=== PATIENT | female | born 1955 | race Caucasian/White ===

== ENCOUNTER → 2019-07-27 | Outpatient (CLI) | payer MEDICARE, BC, OTHER | END | disposition home or self-care (01) | LOC: LABWHC1 12:08 | PROVIDERS: ATTEND Surgery | DX: U07.1 COVID-19 (principal) | CPT/HCPCS: 87635 ==

== ENCOUNTER 2019-07-29 11:58 | Day surgery (SDC) | payer MEDICARE, BC, OTHER ==
[2019-07-28 14:42] VITALS: BMI 62.1
[~2019-07-29 11:58] MED LIST: DEXAMETHASONE SOD PHOSPHATE 10 MG/ML 1 ML VIAL IV ONE; HYDROmorphone 0.5 MG/0.5 ML SYRINGE IVP PRN; LACTATED RINGERS 1,000 ML IV SCH; LIDOCAINE 1% (10MG/ML) FOR IV START INTRADERMA PRN; ONDANSETRON 4 MG/2 ML VIAL IVP ONE; ONDANSETRON 4 MG/2 ML VIAL IVP PRN; ceFAZolin 3 GM in SODIUM CHLORIDE 0.9% 100 ML IVPB ONE
[2019-07-29] MEDS ORDERED: LACTATED RINGERS 1,000 ML IV ONE (12:26)
[2019-07-29 12:35] LABS: Glucose,Whole Blood 261 mg/dL (75-99)
[2019-07-29] MEDS ORDERED: INSULIN ASPART (NovoLOG) 100 UNIT/ML VIAL SQ ONE ×2 (12:50→17:17)
[2019-07-29 12:58] LABS: Basophils % (A) 1 %; Eosinophils # (A) 0.3 k/uL (0-0.7); Eosinophils % (A) 5 %; HCT 33.2 % (34.0-46.0); HGB 10.9 gm/dL (11.4-16.0); Lymphocytes # (A) 1.8 k/uL (1.0-4.8); Lymphocytes % (A) 32 %; MCH 35.5 pg (25.0-35.0); MCHC 32.9 g/dL (31.0-37.0); MCV 107.8 fL (80.0-100.0); Macrocytosis Moderate; Monocytes # (A) 0.3 k/uL (0-1.0); Monocytes % (A) 5 %; Neutrophils # (A) 3.1 k/uL (1.3-7.7); Neutrophils % (A) 54 %; Platelet Count 161 k/uL (150-450); RBC 3.08 m/uL (3.80-5.40); RDW 13.6 % (11.5-15.5); WBC 5.7 k/uL (3.8-10.6)
[2019-07-29 13:07] LABS: Calcium 9.1 mg/dL (8.4-10.2); Potassium 5.5 mmol/L (3.5-5.1); Total Bilirubin 0.5 mg/dL (0.2-1.3); Total Protein 7.6 g/dL (6.3-8.2)
[2019-07-29] MEDS ORDERED: HYDROmorphone (PF) 1 MG/ML ONE (13:38)
[2019-07-29] MEDS ORDERED: ROCURONIUM BROMIDE 10 MG/ML 5 ML VIAL IV ONE (13:38)
[2019-07-29] MEDS ORDERED: MIDAZOLAM 2 MG/2 ML VIAL ONE (13:38)
[2019-07-29] MEDS ORDERED: LIDOCAINE 1% INJ 10MG/ML (20 ML MDV) ONE (13:38)
[2019-07-29] MEDS ORDERED: fentaNYL (PF) 50 MCG/ML 2 ML AMP ONE (13:38)
[2019-07-29] MEDS ORDERED: HEPARIN SODIUM,PORCINE 5,000 UNIT/ML 1 ML VIAL ONE (13:38)
[2019-07-29] MEDS ORDERED: SUCCINYLCHOLINE CHLORIDE 100 MG/5 ML SYR IV ONE (13:38)
[2019-07-29] MEDS ORDERED: PHENYLEPHRINE-0.9% NACL SYG 1 MG/10 ML SYRINGE ONE (13:38)
[2019-07-29] MEDS ORDERED: ePHEDrine SULFATE/0.9% NACL/PF 50 MG/5 ML SYRINGE IV ONE (13:38)
[2019-07-29] MEDS ORDERED: PROPOFOL 10 MG/ML 20 ML VIAL IV ONE (13:38)
[2019-07-29] MEDS ORDERED: SODIUM CHLORIDE 0.9% 1,000 ML IV ONE (13:42)
[2019-07-29] MEDS ORDERED: SODIUM CHLORIDE 0.9% 500 ML 500 ML with HEPARIN SODIUM,PORCINE 2,000 UNIT IV ONE ×2 (14:32)
[2019-07-29] MEDS ORDERED: ceFAZolin 2,000 MG in SODIUM CHLORIDE 0.9% 500 ML IRRIGATION ONE (14:33)
[2019-07-29] MEDS ORDERED: THROMBIN (BOVINE) 5,000 UNIT VIAL TOPICAL ONE (16:02)
[2019-07-29] MEDS ORDERED: GELATIN SPONGE,ABSORB (LARGE) 1 EACH SPONGE TOPICAL ONE (16:03)
--- NOTE | 2019-07-29 16:47 | P.OP ---
Date of Procedure: 07/29/19 Description of Procedure: Preoperative diagnosis: [End-stage renal disease, morbid obesity] Postoperative diagnosis: Same Procedure: [Left upper extremity brachiocephalic arteriovenous fistula creation] Surgeon: Tracy Chen D.O. EBL: [35 mL] IV fluids: [See records] Urine output: [Not measured] Drains: [None] Complications: [None immediately apparent] Condition: [Extubated, stable to PACU] Operative indication and findings: [Patient is a 64-year-old female with end- stage renal disease who previously had a left upper extremity loop forearm graft that has subsequently thrombosed. She is currently getting dialysis via a right sided tunneled dialysis catheter. Ultrasound of her left upper extremity did reveal a 3.4 cm cephalic vein therefore discussion was had regarding attempts to create a brachiocephalic fistula. Given her extensively large arms, it was discussed this might need to be a two-stage procedure if it matures. This was discussed with herself and her who seemingly understand and are willing to proceed.] Procedure in detail: [The patient was taken to the operative suite and placed in supine position. The left upper extremity was prepped and draped in usual sterile fashion. After general anesthesia was adequate, the ultrasound was utilized. The radial artery was identified, the cephalic vein was identified along with its tributary branches. A transverse incision was made just proximal to the antecubital fossa. Using a cautery was carried down to the level of the brachial artery. Brachial artery was encircled with Vesseloops proximal and distally. Attention was then turned towards finding the vein. The dissection was tedious through the significant layers of fat. The of some was used multiple times to locate the cephalic vein. It was encircled and dissected free the distally. It was very tortuous in nature. Multiple branches were ligated. There was an area of injury to the vein itself which was suture repaired with 7-0 Prolene. After adequate vein was dissected free, it was transected any distal portion was suture ligated with 6-0 silk. The vein was then dilated and flushed with heparinized saline. The patient was heparinized. Flow was occluded through the artery and an arteriotomy was performed. An anastomosis created with 7-0 Prolene between the artery and vein. Prior to completion of the anastomosis the artery was flushed. There was good flow through the fistula although somewhat pulsatile. There was a multiphasic signals proximally distally and through the fistula itself. Hemostasis was controlled with sutures of 7-0 Prolene as well as thrombin and Gelfoam. Once hemostasis was adequate, the wound was copiously irrigated. The deep dermal tissues were reapproximated with 3-0 Vicryl. The skin was reapproximated with running 4-0 Monocryl. A dressing was placed with the patient allowed awaken from surgery and transferred to PACU in stable condition having tolerated the procedure well.] Plan - Discharge Summary Discharge Rx Participant: No New Discharge Prescriptions: No Action Simvastatin [Zocor] 20 mg PO HS Insulin Glulisine [Apidra] 20 unit SQ AC-TID Insulin Glargine [Lantus] 39 unit SQ HS Folic Acid-Vit B Complex-Vit C [Nephrocaps] 1 mg PO TUTHSA Doxazosin [Cardura] 1 mg PO HS Lisinopril [Zestril] 5 mg PO HS Calcium Acetate [Phoslo] 667 mg PO TID Aspirin 325 mg PO HS Omeprazole 20 mg PO HS Levothyroxine Sodium [Synthroid] 175 mcg PO DAILY Carvedilol 25 mg PO HS Discharge Medication List Aspirin 325 mg PO HS 07/28/19 [History] Calcium Acetate [Phoslo] 667 mg PO TID 07/28/19 [History] Carvedilol 25 mg PO HS 07/28/19 [History] Doxazosin [Cardura] 1 mg PO HS 07/28/19 [History] Folic Acid-Vit B Complex-Vit C [Nephrocaps] 1 mg PO TUTHSA 07/28/19 [History] Insulin Glargine [Lantus] 39 unit SQ HS 07/28/19 [History] Insulin Glulisine [Apidra] 20 unit SQ AC-TID 07/28/19 [History] Levothyroxine Sodium [Synthroid] 175 mcg PO DAILY 07/28/19 [History] Lisinopril [Zestril] 5 mg PO HS 07/28/19 [History] Omeprazole 20 mg PO HS 07/28/19 [History] Simvastatin [Zocor] 20 mg PO HS 07/28/19 [History]
[2019-07-29 16:57] VITALS: TEMP 97
[2019-07-29 17:15] LABS: Glucose,Whole Blood 285 mg/dL (75-99)
[2019-07-29] MEDS ORDERED: METOCLOPRAMIDE 5 MG/ML 2 ML VIAL IVP ONE (17:15)
[2019-07-29] MEDS ORDERED: ONDANSETRON 4 MG/2 ML VIAL IVP ONE (17:21)
[2019-07-29 18:04] VITALS: BP 130/58; PULSE 78; RESP 18
== END 2019-07-29 18:26 | disposition home or self-care (01) ==
LOC: OR 11:58
PROVIDERS: ATTEND Surgery
DX: I12.0 Hypertensive chronic kidney disease with stage 5 chronic kidney disease or end stage renal disease (principal); E11.22 Type 2 diabetes mellitus with diabetic chronic kidney disease; N18.6 End stage renal disease; G47.33 Obstructive sleep apnea (adult) (pediatric); I69.354 Hemiplegia and hemiparesis following cerebral infarction affecting left non-dominant side; E07.9 Disorder of thyroid, unspecified; K21.9 Gastro-esophageal reflux disease without esophagitis; E66.01 Morbid (severe) obesity due to excess calories; Z79.4 Long term (current) use of insulin; Z79.82 Long term (current) use of aspirin; Z79.890 Hormone replacement therapy; Z79.899 Other long term (current) drug therapy; Z79.02 Long term (current) use of antithrombotics/antiplatelets; Z90.710 Acquired absence of both cervix and uterus; Z98.890 Other specified postprocedural states; Z68.44 Body mass index [BMI] 60.0-69.9, adult; Z77.22 Contact with and (suspected) exposure to environmental tobacco smoke (acute) (chronic); Z90.79 Acquired absence of other genital organ(s); Z83.3 Family history of diabetes mellitus; Z80.3 Family history of malignant neoplasm of breast; Z84.1 Family history of disorders of kidney and ureter; Z80.0 Family history of malignant neoplasm of digestive organs; Z82.49 Family history of ischemic heart disease and other diseases of the circulatory system
CPT/HCPCS: 80053; 85025; 36821; J2250; J1644; J1100; J2765; J0690 ×2; J2405; J2001; J3010; J1170; J2370; J0330; J2704

== ENCOUNTER 2019-08-05 12:12 | Day surgery (SDC) | payer MEDICARE, BC, OTHER ==
[2019-08-04 14:20] VITALS: BMI 63.6
[~2019-08-05 12:12] MED LIST changes: -DEXAMETHASONE SOD PHOSPHATE 10 MG/ML 1 ML VIAL IV ONE; -LIDOCAINE 1% (10MG/ML) FOR IV START INTRADERMA PRN; -ONDANSETRON 4 MG/2 ML VIAL IVP ONE; -ONDANSETRON 4 MG/2 ML VIAL IVP PRN
[2019-08-05] MEDS ORDERED: SODIUM CHLORIDE 0.9% 500 ML 500 ML IV ONE (12:33)
[2019-08-05 12:36] LABS: Glucose,Whole Blood 215 mg/dL (75-99)
[2019-08-05] MEDS ORDERED: INSULIN ASPART (NovoLOG) 100 UNIT/ML VIAL SQ ONE (12:40)
[2019-08-05 12:42] VITALS: TEMP 97.5
[2019-08-05 13:20] LABS: Basophils % (A) 1 %; Eosinophils # (A) 0.3 k/uL (0-0.7); Eosinophils % (A) 4 %; HCT 30.4 % (34.0-46.0); Lymphocytes # (A) 1.9 k/uL (1.0-4.8); Lymphocytes % (A) 29 %; MCH 36.5 pg (25.0-35.0); MCHC 32.9 g/dL (31.0-37.0); MCV 111.1 fL (80.0-100.0); Macrocytosis Marked; Mean Platelet Volume 9.5; Monocytes # (A) 0.3 k/uL (0-1.0); Monocytes % (A) 4 %; Neutrophils # (A) 3.8 k/uL (1.3-7.7); Neutrophils % (A) 60 %; Platelet Count 195 k/uL (150-450); RBC 2.74 m/uL (3.80-5.40); RDW 14.7 % (11.5-15.5); WBC 6.3 k/uL (3.8-10.6)
[2019-08-05] MEDS ORDERED: MIDAZOLAM 2 MG/2 ML VIAL IV ONE (13:27)
[2019-08-05 13:28] LABS: Calcium 9.3 mg/dL (8.4-10.2)
[2019-08-05] MEDS ORDERED: LIDOCAINE 1% INJ 10MG/ML (20 ML MDV) SQ ONE (13:29)
[2019-08-05 13:34] LABS: Potassium 6.3 mmol/L (3.5-5.1)
--- NOTE | 2019-08-05 14:10 | P.OP ---
Date of Procedure: 08/05/19 Description of Procedure: Preoperative diagnosis: [End-stage renal disease, malpositioned and malfunctioning tunneled dialysis catheter] Postoperative diagnosis: Same Procedure: [Replacement of right internal jugular tunneled dialysis catheter via existing catheter with fluoroscopic assistance moderate conscious IV sedation 17 minutes.] Surgeon: Tracy Chen D.O. EBL: [10 mL] IV fluids: [See records] Urine output: [None] Drains: [None] Complications: [None immediately apparent. Stable to PACU] Condition: [In stable] Operative indication and findings: [Patient is a 64-year-old female who has end- stage renal disease. She recently underwent creation of a left upper extremity fistula and upon presented to dialysis yesterday was found to have her tunneled dialysis catheter pulled out proximally 4-5 cm. The dialysis nurse did not feel comfortable utilizing it. She was able to confirm intravascular status by aspirating and flushing. The patient presents today for dialysis catheter exchange. Risks and benefits were discussed. She seemingly understood and is willing to proceed.] Procedure in detail: [The patient was taken to the Marketing [facility] and placed in supine position. The right neck was prepped and draped in usual sterile fashion. A preprocedure timeout was performed, all parties are in agreement. IV antibiotics were given. In incision was made at the base of the neck overlying the catheter. It was carried onto the catheter itself. The catheter was brought up and transected. A wire was placed down And confirmed in position in the vena cava with fluoroscopic assistance. The remainder of the catheter was removed via the previously made tunnel. The catheter was removed over the wire and a dilator was placed for hemostasis. A new proposed tunnel was anesthetized and created after small incision skin. The catheter was tunneled. The tract was then serially dilated and the tear-away sheath was placed over the wire. The inner cannula and wire were removed. The catheter was placed into the sheath and the sheath was removed. The catheter was found to be in good positioning on fluoroscopic image. Aspirated and flushed freely. It was sutured in place with 3-0 nylon. The neck incision was reapproximated with 4-0 Vicryl. Dressings were placed including a Biopatch. The patient was transferred to recovery in stable condition having tolerated her procedure well. Patient does have elevated potassium and she was instructed to go to dialysis as previously planned later this afternoon. This also discussed with her who seemingly understands and is willing to proceed as recommended.] Plan - Discharge Summary Discharge Rx Participant: No New Discharge Prescriptions: No Action Simvastatin [Zocor] 20 mg PO HS Insulin Glulisine [Apidra] 20 unit SQ AC-TID Insulin Glargine [Lantus] 39 unit SQ HS Doxazosin [Cardura] 1 mg PO HS Lisinopril [Zestril] 5 mg PO HS Calcium Acetate [Phoslo] 667 mg PO TID Aspirin 325 mg PO HS Omeprazole 20 mg PO DAILY Levothyroxine Sodium [Synthroid] 175 mcg PO DAILY Carvedilol 25 mg PO HS Folic Acid-Vit B Complex-Vit C [Nephrocaps] 1 mg PO DAILY Discharge Medication List Aspirin 325 mg PO HS 07/28/19 [History] Calcium Acetate [Phoslo] 667 mg PO TID 07/28/19 [History] Carvedilol 25 mg PO HS 07/28/19 [History] Doxazosin [Cardura] 1 mg PO HS 07/28/19 [History] Insulin Glargine [Lantus] 39 unit SQ HS 07/28/19 [History] Insulin Glulisine [Apidra] 20 unit SQ AC-TID 07/28/19 [History] Levothyroxine Sodium [Synthroid] 175 mcg PO DAILY 07/28/19 [History] Lisinopril [Zestril] 5 mg PO HS 07/28/19 [History] Omeprazole 20 mg PO DAILY 07/28/19 [History] Simvastatin [Zocor] 20 mg PO HS 07/28/19 [History] Folic Acid-Vit B Complex-Vit C [Nephrocaps] 1 mg PO DAILY 08/04/19 [History] Patient Instructions/Handouts: Perma-cath Placement (DC)
--- NOTE | 2019-08-05 14:12 | IR ---
EXAMINATION TYPE: IR cvc insert central tunneled DATE OF EXAM: 08/05/2019 CLINICAL HISTORY: Failed dialysis. TECHNIQUE: Fluoroscopy. COMPARISON: None. FINDINGS: Fluoroscopic guidance was provided during right internal jugular dialysis catheter exchang e procedure performed by Dr. Chen. A total of 18 seconds of fluoroscopic time was utilized during t he procedure and 3 spot images are acquired. Images acquired show placement of large bore dual lumen right internal jugular dialysis catheter with tips terminating in right atrium. IMPRESSION: As Above.
[2019-08-05 14:44] VITALS: BP 136/63; PULSE 66; RESP 18
== END 2019-08-05 15:00 | disposition home or self-care (01) ==
LOC: OR 12:12
PROVIDERS: ATTEND Surgery
DX: T82.42XA Displacement of vascular dialysis catheter, initial encounter (principal); I12.0 Hypertensive chronic kidney disease with stage 5 chronic kidney disease or end stage renal disease; E11.22 Type 2 diabetes mellitus with diabetic chronic kidney disease; N18.6 End stage renal disease; Z79.4 Long term (current) use of insulin; Z79.82 Long term (current) use of aspirin; Z79.890 Hormone replacement therapy; Z79.02 Long term (current) use of antithrombotics/antiplatelets; Z79.899 Other long term (current) drug therapy; Z82.49 Family history of ischemic heart disease and other diseases of the circulatory system; Z84.1 Family history of disorders of kidney and ureter; Z99.2 Dependence on renal dialysis; Z11.59 Encounter for screening for other viral diseases
CPT/HCPCS: 36581; 76937; 77001; 80048; 85025; 87635; C1769 ×2; C1750; J2250; J0690; J2001; 36558

== ENCOUNTER 2019-11-11 11:52 | Day surgery (SDC) | payer MEDICARE, BC, OTHER ==
[2019-11-10 09:13] VITALS: BMI 62.1
[~2019-11-11 11:52] MED LIST changes: +DEXAMETHASONE SOD PHOSPHATE 10 MG/ML 1 ML VIAL IV ONE; -LACTATED RINGERS 1,000 ML IV SCH; +LIDOCAINE 1% (10MG/ML) FOR IV START INTRADERMA PRN; +ONDANSETRON 4 MG/2 ML VIAL IVP ONE
[2019-11-11 12:25] LABS: Glucose,Whole Blood 356 mg/dL (75-99)
[2019-11-11] MEDS ORDERED: SODIUM CHLORIDE 0.9% 1,000 ML IV ONE (12:27)
[2019-11-11] MEDS ORDERED: ONDANSETRON 4 MG/2 ML VIAL ONE (12:28)
[2019-11-11 12:44] LABS: Basophils # (A) 0.1 k/uL (0-0.2); Basophils % (A) 1 %; Eosinophils # (A) 0.2 k/uL (0-0.7); Eosinophils % (A) 3 %; HCT 34.2 % (34.0-46.0); HGB 11.1 gm/dL (11.4-16.0); Lymphocytes # (A) 1.8 k/uL (1.0-4.8); Lymphocytes % (A) 30 %; MCH 34.1 pg (25.0-35.0); MCHC 32.5 g/dL (31.0-37.0); MCV 104.8 fL (80.0-100.0); Macrocytosis Slight; Mean Platelet Volume 9.2; Monocytes # (A) 0.3 k/uL (0-1.0); Monocytes % (A) 5 %; Neutrophils # (A) 3.6 k/uL (1.3-7.7); Neutrophils % (A) 60 %; Platelet Count 177 k/uL (150-450); RBC 3.26 m/uL (3.80-5.40); RDW 13.3 % (11.5-15.5); WBC 6.1 k/uL (3.8-10.6)
[2019-11-11 12:50] LABS: Albumin 4.2 g/dL (3.5-5.0); Potassium 5.1 mmol/L (3.5-5.1); Total Bilirubin 0.6 mg/dL (0.2-1.3); Total Protein 7.5 g/dL (6.3-8.2)
[2019-11-11] MEDS ORDERED: INSULIN ASPART (NovoLOG) 100 UNIT/ML VIAL SQ ONE ×3 (12:53→18:12)
[2019-11-11] MEDS ORDERED: LIDOCAINE 1% INJ 10MG/ML (20 ML MDV) SQ ONE ×2 (14:37)
[2019-11-11] MEDS ORDERED: HEPARIN SODIUM,PORCINE 2,000 UNIT in SODIUM CHLORIDE 0.9% 500 ML 500 ML IRRIGATION ONE (14:41)
[2019-11-11] MEDS ORDERED: ceFAZolin 2,000 MG in SODIUM CHLORIDE 0.9% 500 ML IRRIGATION ONE (14:42)
[2019-11-11] MEDS ORDERED: THROMBIN (BOVINE) 5,000 UNIT VIAL TOPICAL ONE (15:58)
[2019-11-11 17:15] LABS: Glucose,Whole Blood 281 mg/dL (75-99)
--- NOTE | 2019-11-11 17:37 | P.OP ---
Date of Procedure: 11/11/19 Description of Procedure: Preoperative diagnosis: ESRD Postoperative diagnosis: Same Procedure: [Right upper extremity loop forearm graft] Surgeon: Tracy Chen D.O. Anesthesia: Gen. endotracheal EBL: [Less than 20 mL mL] IV fluids: [See operative records] Urine output: [Not measured] Drains: [None] Complications: [None immediately apparent] Condition: [Stable to PACU] Operative indication and findings: [The patient is a 64-year-old female with End-stage renal disease who has previously undergone a right upper extremity brachiobasilic fistula that was non-maturing and unable to utilize, she subsequently underwent a left loop forearm graft and left brachial to cephalic vein anastomosis and fistula. That was unsuccessful. She continues good dialysis via a right chest wall port. Discussion was had with the family and since she has very large upper arm venous a loop forearm graft was the int ervention discussed and planned. The patient presents today for this.She previously underwent arterial imaging of the upper extremities revealing normal flow distal to the previous anastomosis. All questions are answered. Risks and benefits were discussed. At the time of the procedure, the median cubital vein was very small in sizeThe brachial vein was very small in size and. The basilic vein was very close to the brachial therefore the anastomosis was from the brachial artery to the basilic vein] Procedure in detail: [The patient was taken to the operative suite and placed in supine position. The Right upper extremity is prepped and draped in usual sterile fashion. A preprocedure timeout was performed, all parties were in agreement. The Ultrasound was utilized in the brachial artery was identified. A transverse incision was made just distal to the antecubital fossa and carried down to the level of the brachial artery. It was dissected free circumferentially and proximal and distal Vesseloops were placed. Attention was then turned towards the venous outflow. The brachial vein was very small in size and buried deep to the brachial artery. The basilic vein had been previ ously identified on ultrasound and was adequate in size and close in proximity And therefore was dissected free. It was dissected free Potential he proximal and distally and vessel loops were placed. The 4 x 7 propatent graft was then tunneled through a counter incision in the forearm and a subcutaneous tissues. The patient was then heparinized. Flow was occluded through the artery. An arteriotomy was performed and anastomosis to the graft was performed with 6-0 Prolene. The graft was then flushed and the anastomosis was tied. Flows WasReinstituted through the brachial artery. Is a palpable pulse proximally and distally to the anastomosisWith good multiphasic signals atAs well as at the radial artery at the wrist.. Attention was then turned towards the venous anastomosis. Flow was occluded through the vein and a venotomy was performed. Anastomosis created with 7-0 Prolene. Prior to completion of the anastomosis the graft was flushed as well as the veins themselves. An Past ecchymosis completed and the flow was reinstituted. There remained a palpable pulse proximal and distal to the brachial anastomosis as well as multiphasic signals at the wrist. Thrombin Gelfoam was used for hemostasis. The incision sites were copiously irrigated the subcutaneous tissues were approximately with 3-0 Vicryl in interrupted fashion and the skin was reapproximated with running 4-0 M onocryl. Skin glue was placed. As well as a light compressive dressing. The patient was allowed awaken from anesthesia and transferred to PACU in stable condition having tolerated the procedure well.] Plan - Discharge Summary Discharge Rx Participant: No New Discharge Prescriptions: No Action Simvastatin [Zocor] 20 mg PO HS Insulin Glulisine [Apidra] 20 unit SQ AC-TID Insulin Glargine [Lantus] 39 unit SQ HS Doxazosin [Cardura] 1 mg PO HS lisinopriL [Zestril] 5 mg PO HS Calcium Acetate [Phoslo] 667 mg PO TID Aspirin 325 mg PO HS Omeprazole 20 mg PO DAILY Levothyroxine Sodium [Synthroid] 175 mcg PO DAILY carvediloL [Carvedilol] 25 mg PO HS Folic Acid-Vit B Complex-Vit C [Nephrocaps] 1 mg PO DAILY Discharge Medication List Aspirin 325 mg PO HS 07/28/19 [History] Calcium Acetate [Phoslo] 667 mg PO TID 07/28/19 [History] Doxazosin [Cardura] 1 mg PO HS 07/28/19 [History] Insulin Glargine [Lantus] 39 unit SQ HS 07/28/19 [History] Insulin Glulisine [Apidra] 20 unit SQ AC-TID 07/28/19 [History] Levothyroxine Sodium [Synthroid] 175 mcg PO DAILY 07/28/19 [History] Omeprazole 20 mg PO DAILY 07/28/19 [History] Simvastatin [Zocor] 20 mg PO HS 07/28/19 [History] carvediloL [Carvedilol] 25 mg PO HS 07/28/19 [History] lisinopriL [Zestril] 5 mg PO HS 07/28/19 [History] Folic Acid-Vit B Complex-Vit C [Nephrocaps] 1 mg PO DAILY 08/04/19 [History] Follow up Appointment(s)/Referral(s): Tracy Chen DO [STAFF PHYSICIAN] - As Needed Patient Instructions/Handouts: *[facility] - (Anesthesia) Discharge Instructions Outpatient Surgery Activity/Diet/Wound Care/Special Instructions: keep hoa wrap in place until tomorrow.
[2019-11-11 18:07] LABS: Glucose,Whole Blood 295 mg/dL (75-99)
[2019-11-11 18:41] LABS: Glucose,Whole Blood 281 mg/dL (75-99)
[2019-11-11 19:11] LABS: Glucose,Whole Blood 268 mg/dL (75-99)
[2019-11-11] MEDS: LACTATED RINGERS 1,000 ML IV SCH ×2 (19:29→23:34)
[2019-11-11 20:40] LABS: Glucose,Whole Blood 238 mg/dL (75-99)
[2019-11-11] MEDS ORDERED: DOXAZOSIN 1 MG TAB PO SCH (21:45)
[2019-11-11] MEDS ORDERED: ATORVASTATIN 10 MG TAB PO SCH (21:45)
[2019-11-11] MEDS ORDERED: lisinopriL 5 MG TAB PO SCH (21:45)
[2019-11-11] MEDS ORDERED: INSULIN DETEMIR (LEVEMIR) 100 UNIT/ML SYR SQ SCH (21:45)
[2019-11-11] MEDS ORDERED: ASPIRIN 325 MG TAB PO SCH (21:45)
[2019-11-11] MEDS: carvediloL 12.5 MG TAB PO SCH ×2 (23:23→23:34)
[2019-11-11] MEDS: CALCIUM ACETATE 667 MG TAB PO SCH (23:24)
[2019-11-11] MEDS: ONDANSETRON 4 MG/2 ML VIAL IVP PRN (23:24)
[2019-11-12 01:31] VITALS: RESP 20
[2019-11-12] MEDS ORDERED: LEVOTHYROXINE 50 MCG TAB PO SCH (06:30)
[2019-11-12 06:48] LABS: Glucose,Whole Blood 315 mg/dL (75-99)
[2019-11-12] MEDS: CALCIUM ACETATE 667 MG TAB PO SCH (07:26)
[2019-11-12] MEDS: ONDANSETRON 4 MG/2 ML VIAL IVP PRN (07:28)
[2019-11-12] MEDS ORDERED: PANTOPRAZOLE 40 MG TABLET PO SCH (07:30)
[2019-11-12] MEDS ORDERED: INSULIN ASPART (NovoLOG) 100 UNIT/ML VIAL SQ SCH (07:30)
[2019-11-12 07:44] VITALS: BP 102/49; PULSE 86; TEMP 97.3
[2019-11-12] MEDS ORDERED: FOLIC ACID-VIT B COMPLEX-VIT C 1 CAP PO SCH (09:00)
--- NOTE | 2019-11-12 09:14 | P.DS ---
Providers Expected date of discharge: 11/12/19 Attending physician: Tracy Chen DO Consults: 11/11/19 18:58 Consult Physician Stat Consulting Provider: Mariah Melendez Consult Reason/Comments: DIALYSIS/RENAL MANAGEMENT Do you want consulting provider notified?: Yes Primary care physician: Robert Fernandez MD Hospital Course: The patient is a 64-year-old female with End-stage renal disease who has previ ously undergone a right upper extremity brachiobasilic fistula that was non- maturing and unable to utilize, she subsequently underwent a left loop forearm graft and left brachial to cephalic vein anastomosis and fistula. That was unsuccessful. She continues good dialysis via a right chest wall port. Was scheduled with Dr. Chen as an outpatient for a right upper extremity loop forearm graft. Patient was having some pain and very drowsy after surgery, therefore patient was admitted to the hospital overnight. Patient is doing well this morning, pain is well controlled. Patient had breakfast and tolerated well. Patient has a outpatient dialysis appointment this afternoon, patient is stable for discharge. She'll follow-up with Dr. Chen in the office in 2 weeks. Assessment: General appearance: The patient is alert, oriented, in no acute distress. HET: Head is normocephalic and atraumatic. Neck: Supple without lymphadenopathy. Heart: S1 S2. Regular rate and rhythm. Lungs: No crackles or wheezes are heard. Extremities: Right upper extremity incision sites clean dry and intact, well approximated with surgical glue. Mild ecchymosis noted around surgical sites. Audible flow. Neurological: No focal deficits. Strength and sensation are grossly intact. Assessment: 1. Postop day 1 for right upper extremity loop forearm graft 2. End-stage renal disease Procedures: right upper extremity loop forearm graft Patient Condition at Discharge: Good Plan - Discharge Summary Discharge Rx Participant: No New Discharge Prescriptions: Continue Simvastatin [Zocor] 20 mg PO HS Insulin Glulisine [Apidra] 20 unit SQ AC-TID Insulin Glargine [Lantus] 39 unit SQ HS Doxazosin [Cardura] 1 mg PO HS lisinopriL [Zestril] 5 mg PO HS Calcium Acetate [PhosLo] 667 mg PO TID Aspirin 325 mg PO HS Omeprazole 20 mg PO DAILY Levothyroxine Sodium [Synthroid] 175 mcg PO DAILY carvediloL [Carvedilol] 25 mg PO HS Folic Acid-Vit B Complex-Vit C [Nephrocaps] 1 mg PO DAILY Discharge Medication List Aspirin 325 mg PO HS 07/28/19 [History] Calcium Acetate [PhosLo] 667 mg PO TID 07/28/19 [History] Doxazosin [Cardura] 1 mg PO HS 07/28/19 [History] Insulin Glargine [Lantus] 39 unit SQ HS 07/28/19 [History] Insulin Glulisine [Apidra] 20 unit SQ AC-TID 07/28/19 [History] Levothyroxine Sodium [Synthroid] 175 mcg PO DAILY 07/28/19 [History] Omeprazole 20 mg PO DAILY 07/28/19 [History] Simvastatin [Zocor] 20 mg PO HS 07/28/19 [History] carvediloL [Carvedilol] 25 mg PO HS 07/28/19 [History] lisinopriL [Zestril] 5 mg PO HS 07/28/19 [History] Folic Acid-Vit B Complex-Vit C [Nephrocaps] 1 mg PO DAILY 08/04/19 [History] Follow up Appointment(s)/Referral(s): Tracy Chen DO [STAFF PHYSICIAN] - 2 Weeks Patient Instructions/Handouts: *[facility] - (Anesthesia) Discharge Instructions Outpatient Surgery Activity/Diet/Wound Care/Special Instructions: May shower and wash surgical incisions. No heavy lifting with the right upper extremity. Discharge Disposition: HOME SELF-CARE
== END 2019-11-12 09:30 | disposition home or self-care (01) ==
LOC: OR 11:52 → 4SSUR 19:00 → OR 11-12 09:30
PROVIDERS: ATTEND Surgery
DX: I12.0 Hypertensive chronic kidney disease with stage 5 chronic kidney disease or end stage renal disease (principal); E11.22 Type 2 diabetes mellitus with diabetic chronic kidney disease; N18.6 End stage renal disease; Z99.2 Dependence on renal dialysis; E66.01 Morbid (severe) obesity due to excess calories; Z68.44 Body mass index [BMI] 60.0-69.9, adult; E07.9 Disorder of thyroid, unspecified; Z98.890 Other specified postprocedural states; I25.2 Old myocardial infarction; Z90.710 Acquired absence of both cervix and uterus; H54.62 Unqualified visual loss, left eye, normal vision right eye; Z79.82 Long term (current) use of aspirin; Z79.890 Hormone replacement therapy; Z79.4 Long term (current) use of insulin; Z79.899 Other long term (current) drug therapy
CPT/HCPCS: 36830; 80053; 85025; L8670; J1644; J0690 ×2; J2405 ×2; J2001

== ENCOUNTER 2020-03-16 12:53 | Day surgery (SDC) | payer MEDICARE, BC, OTHER ==
[2020-03-16] MEDS ORDERED: SODIUM CHLORIDE 0.9% 500 ML 500 ML IV ONE (13:06)
[2020-03-16 13:34] LABS: Glucose,Whole Blood 159 mg/dL (75-99)
[2020-03-16] MEDS ORDERED: ALTEPLASE 2 MG VIAL (CATHFLO) IV STA ×2 (14:22→16:23)
[2020-03-16] MEDS ORDERED: LIDOCAINE 1% INJ 10MG/ML (20 ML MDV) SQ ONE ×2 (16:04→18:11)
[2020-03-16] MEDS ORDERED: HYDROmorphone 0.5 MG/0.5 ML SYRINGE IVP ONE ×2 (16:19→18:11)
[2020-03-16] MEDS ORDERED: ceFAZolin 3 GM in SODIUM CHLORIDE 0.9% 100 ML IVPB ONE (18:07)
--- NOTE | 2020-03-16 19:29 | P.OP ---
Date of Procedure: 03/16/20 Description of Procedure: Preoperative diagnosis: [End-stage renal disease, thrombosed right upper extremity loop forearm graft] Postoperative diagnosis: Same, small venous outflow Procedure: [#1 fistulogram right upper extremity #2 right upper extremity 6 suction thrombectomy #3 4 x 40 basilic vein venoplasty, outflow anastomosis venoplasty #4 open thrombectomy #5 right internal jugular ultrasound-guided access #6 placement of 20 semi-a tunneled dialysis catheter fluoroscopic assistance] Surgeon: Tracy Chen D.O. EBL: [50 mL] IV fluids: [See records] Urine output: [None] Drains: [None] Complications: [None immediately apparent] Condition: [Stable] Operative indication and findings: [Patient is a 65-year-old female with end- stage renal disease who presents with a thrombosed graft after multiple areas of attempted graft placements. She last dialyzed 3 days ago. She presents today for fistulogram and possible attempt at opening the graft as well as possible pleural catheter placements. She seemingly understands all risks and benefits and is willing to proceed.] Procedure in detail: [The patient was taken to the special suite and placed in supine position. The right upper extremity was prepped and draped in usual sterile fashion. A preprocedure timeout was performed and all parties are in agreement. The graft was accessed and Seldinger technique was used to place a 6-Tajik sheath guidewire was passed along with a glide catheter and the venous outflow was identified via the basilic vein. The suction thrombectomy catheter was then placed and there was some resistance at the outflow anastomosis therefore after multiple passes the outflow tract and basilic vein were ballo oned with a 4 x 40 balloon appeared to have good resolution of waist. There is appear to be some thrombus in the graft and at that point obvious thrombus in the proximal portion therefore decided to convert to an open thrombectomy given the suction catheter was not fully removing thrombus as anticipated. The area where the sheath was placed was anesthetized with further lidocaine and the incision was enlarged. Sharp dissection was performed down to the level of the graft itself. clamps were placed proximally and distally. The spot where the sheath was, was enlarged A 4-Tajik Aide catheter was run distally to the vein and brought back with return of some thrombus as well as slow venous outflow. The same was then done in a proximal direction and after multiple passes of the plug of thrombus was removed and there was good pulsatile flow. That point there was a good pulse in the graft. It was flushed with heparinized saline and attempts are made for closing the graftotomy. Throughout the closure the graft itself seemed to lose its pulsation and thrombolysis. This was performed multiple times with passage of the Aide catheter. The distal anastomotic outflow was again balloon dilated and again there was not significant improvement of the flow through the entirety of the graft. The graft was closed with 6-0 Prolene and at the completion of this portion there was a pulse through the graft, but not very hearty. Given its poor outflow and multiple times of thrombosis we elected to place a tunneled dialysis catheter in the event that this continues to fail. The skin at this site was then reapproximated with interrupted sutures of Vicryl and nylon. Dressing was placed. Attention was then turned towards the neck was prepped and draped in usual sterile fashion. The ultrasound utilized and the right internal jugular was identified. The skin overlying was anesthetized with 1% lidocaine plain and utilizing a micro-access needle of the internal jugular vein was accessed Seldinger technique was utilized and the 035 wire was placed the proposed tunnel was anesthetized and the previously flushed catheter was tunneled through a small neck and the skin of the anterior chest wall. The tract was serially dilated and the tear-away sheath was placed. The catheter was placed the tear- away sheath was removed. The catheter was aspirated and flushed well. Hep lock saline was placed. The neck incision was reapproximated with interrupted suture of Vicryl and the chest wall port was secured with nylon. Dressings were placed. A post procedure chest x-ray is pending] Plan - Discharge Summary New Discharge Prescriptions: No Action Simvastatin [Zocor] 20 mg PO HS Insulin Glulisine [Apidra] 20 unit SQ AC-TID Insulin Glargine [Lantus] 39 unit SQ HS Doxazosin [Cardura] 1 mg PO HS lisinopriL [Zestril] 5 mg PO HS Calcium Acetate [PhosLo] 667 mg PO TID Aspirin 325 mg PO HS Omeprazole 20 mg PO DAILY Levothyroxine Sodium [Synthroid] 175 mcg PO DAILY carvediloL [Carvedilol] 25 mg PO HS Folic Acid-Vit B Complex-Vit C [Nephrocaps] 1 mg PO DAILY Discharge Medication List Aspirin 325 mg PO HS 07/28/19 [History] Calcium Acetate [PhosLo] 667 mg PO TID 07/28/19 [History] Doxazosin [Cardura] 1 mg PO HS 07/28/19 [History] Insulin Glargine [Lantus] 39 unit SQ HS 07/28/19 [History] Insulin Glulisine [Apidra] 20 unit SQ AC-TID 07/28/19 [History] Levothyroxine Sodium [Synthroid] 175 mcg PO DAILY 07/28/19 [History] Omeprazole 20 mg PO DAILY 07/28/19 [History] Simvastatin [Zocor] 20 mg PO HS 07/28/19 [History] carvediloL [Carvedilol] 25 mg PO HS 07/28/19 [History] lisinopriL [Zestril] 5 mg PO HS 07/28/19 [History] Folic Acid-Vit B Complex-Vit C [Nephrocaps] 1 mg PO DAILY 08/04/19 [History] Follow up Appointment(s)/Referral(s): Tracy Chen DO [STAFF PHYSICIAN] - 1 Week Patient Instructions/Handouts: Perma-cath Placement (DC), Fistulogram (GEN), Embolectomy (DC) Activity/Diet/Wound Care/Special Instructions: Activity as tolerated. Dialysis tomorrow. Discharge Disposition: HOME SELF-CARE
--- NOTE | 2020-03-16 19:50 | XR ---
EXAMINATION TYPE: XR chest 1V confirm line [facility] DATE OF EXAM: 03/16/2020 COMPARISON: NONE HISTORY: Catheter insertion TECHNIQUE: Single view FINDINGS: There is right-sided central venous catheter with tip over the right atrium. Lungs are lise r. There is no heart failure. There is no pleural effusion. Heart size is normal. Bony thorax is inta ct. There is no pneumothorax. IMPRESSION: No active cardiopulmonary disease.
[2020-03-16 20:05] VITALS: BP 140/74; PULSE 77; RESP 18; TEMP 97.6
[2020-03-16] MEDS ORDERED: ONDANSETRON 4 MG/2 ML VIAL IVP STA (20:05)
[2020-03-16 20:20] LABS: Glucose,Whole Blood 114 mg/dL (75-99)
--- NOTE | 2020-03-17 11:29 | IR ---
Fluoroscopy HISTORY: dialysis 12.1 minutes fluoroscopy time supplied to the referring clinician. 749 intraoperative C-arm images d ocument the procedure. See dictated report from vascular surgery.
== END 2020-03-16 21:00 | disposition home or self-care (01) ==
LOC: CATHCVL 12:53 → 1SOBS 19:10 → CATHCVL 21:00
PROVIDERS: ATTEND Surgery
DX: T82.868A Thrombosis due to vascular prosthetic devices, implants and grafts, initial encounter (principal); E11.22 Type 2 diabetes mellitus with diabetic chronic kidney disease; N18.6 End stage renal disease; E66.01 Morbid (severe) obesity due to excess calories; Z79.4 Long term (current) use of insulin; Z79.82 Long term (current) use of aspirin; Z79.02 Long term (current) use of antithrombotics/antiplatelets; Z79.890 Hormone replacement therapy; Z79.899 Other long term (current) drug therapy; Z99.2 Dependence on renal dialysis; Z68.44 Body mass index [BMI] 60.0-69.9, adult
CPT/HCPCS: 36831; 36558; 76080; C1757 ×2; C1894 ×2; C1769 ×4; C1725; C1750; J0690; J2405; J2001; J2997; J1170

== ENCOUNTER 2020-03-31 12:32 | Day surgery (SDC) | payer MEDICARE, BC, OTHER ==
[2020-03-25 09:28] VITALS: BMI 60.4
[~2020-03-31 12:32] MED LIST changes: -DEXAMETHASONE SOD PHOSPHATE 10 MG/ML 1 ML VIAL IV ONE; +DEXAMETHASONE SOD PHOSPHATE 4 MG/ML 1 ML VIAL IV ONE; +LACTATED RINGERS 1,000 ML IV SCH; +MIDAZOLAM 2 MG/2 ML VIAL IV PRN; -ceFAZolin 3 GM in SODIUM CHLORIDE 0.9% 100 ML IVPB ONE
[2020-03-31 13:28] LABS: Glucose,Whole Blood 296 mg/dL (75-99)
[2020-03-31] MEDS ORDERED: INSULIN ASPART (NovoLOG) 100 UNIT/ML VIAL SQ ONE (13:43)
[2020-03-31 14:02] LABS: Basophils # (A) 0.1 k/uL (0-0.2); Basophils % (A) 1 %; Eosinophils # (A) 0.2 k/uL (0-0.7); Eosinophils % (A) 2 %; HCT 32.7 % (34.0-46.0); HGB 11.2 gm/dL (11.4-16.0); Lymphocytes # (A) 2.3 k/uL (1.0-4.8); Lymphocytes % (A) 33 %; MCH 34.6 pg (25.0-35.0); MCHC 34.2 g/dL (31.0-37.0); MCV 101.2 fL (80.0-100.0); Macrocytosis Slight; Mean Platelet Volume 8.7; Monocytes # (A) 0.3 k/uL (0-1.0); Monocytes % (A) 5 %; Neutrophils # (A) 3.9 k/uL (1.3-7.7); Neutrophils % (A) 58 %; Platelet Count 173 k/uL (150-450); RBC 3.23 m/uL (3.80-5.40); RDW 13.5 % (11.5-15.5); WBC 6.8 k/uL (3.8-10.6)
[2020-03-31 14:06] LABS: Calcium 9.1 mg/dL (8.4-10.2); Potassium 4.5 mmol/L (3.5-5.1)
[2020-03-31] MEDS ORDERED: PROPOFOL 10 MG/ML 20 ML VIAL IV ONE (14:55)
[2020-03-31] MEDS ORDERED: LIDOCAINE 1% INJ 10MG/ML (20 ML MDV) ONE (14:55)
[2020-03-31] MEDS ORDERED: SUCCINYLCHOLINE CHLORIDE 100 MG/5 ML SYR IV ONE (14:55)
[2020-03-31] MEDS ORDERED: ROCURONIUM 10 MG/ML (10 ML VIAL) IV ONE (14:55)
[2020-03-31] MEDS ORDERED: MIDAZOLAM 2 MG/2 ML VIAL ONE (14:55)
[2020-03-31] MEDS ORDERED: GLYCOPYRROLATE 0.2 MG/ML 2 ML VIAL ONE (14:55)
[2020-03-31] MEDS ORDERED: HEPARIN SODIUM,PORCINE 5,000 UNIT/ML 1 ML VIAL ONE (14:55)
[2020-03-31] MEDS ORDERED: fentaNYL (PF) 50 MCG/ML 2 ML AMP ONE (14:55)
[2020-03-31] MEDS ORDERED: PHENYLEPHRINE 10 MG/ML VIAL ONE (14:55)
[2020-03-31] MEDS ORDERED: NEOSTIGMINE 1 MG/ML 10 ML VIAL ONE (14:55)
[2020-03-31] MEDS ORDERED: ceFAZolin 2,000 MG in SODIUM CHLORIDE 0.9% 500 ML 500 ML IRRIGATION ONE (15:00)
[2020-03-31] MEDS ORDERED: SODIUM CHLORIDE 0.9% 900 ML IV ONE (15:00)
[2020-03-31] MEDS ORDERED: HEPARIN SODIUM,PORCINE 2,000 UNIT in SODIUM CHLORIDE 0.9% 500 ML 500 ML IRRIGATION ONE (15:00)
[2020-03-31] MEDS ORDERED: SODIUM CHLORIDE 0.9% 150 ML with ceFAZolin 3,000 MG IV ONE ×2 (15:25)
[2020-03-31] MEDS ORDERED: BUPIVACAINE (PF) 0.5% 30 ML VIAL SQ ONE (15:36)
[2020-03-31] MEDS ORDERED: LIDOCAINE 1% INJ 10MG/ML (20 ML MDV) SQ ONE (15:36)
--- NOTE | 2020-03-31 17:45 | P.OP ---
Date of Procedure: 03/31/20 Description of Procedure: Preoperative diagnosis: End-stage renal disease, thrombosed right upper extremity loop AV graft Postoperative diagnosis: Same Procedure: [Open thrombectomy right upper extremity AV graft AV graft Revision venoplasty with patch] Surgeon: Tracy Chen D.O. EBL: [100 mL] IV fluids: [See records] Urine output: [Not measured] Drains: [None] Complications: [None immediately apparent] Condition: [Stable to recovery patient] Operative indication and findings: [The patient is a 65-year-old female with a right upper extremity AV graft that has thrombosed. She has a tunneled dialysis catheter chest that is functioning. She recommended undergo open thrombectomy with possible revision. He presents today for this.] Procedure in detail: [The patient was taken to the operative suite and placed in supine position. The right upper extremity was prepped and draped in usual sterile fashion. After adequate anesthesia a preprocedure timeout was performed with all parties in agreement. The previous incision in the antecubital fossa was reopened and careful and tedious dissection was carried down to the level of the arteriovenous graft anastomoses. There was significant scar tissue. The graft was dissected free for a significant portion around the venous outflow tract 8 graftotomy was made. A 3 and 4 Aide catheter were passed both proximally and distally until there was no further thrombus. There was adequate blood flow proximally. The patient was heparinized. The graft was flushed with heparinized saline. The graftotomy was then reapproximated with 6-0 Prolene. At the conclusion of this portion there was a palpable pulse through the graft itself although there was very significant diminished outflow through the vein. Decided that a venous outflow venoplasty would be necessary to attempts to keep salvage of this graft. Further dissection was done proximally and distally on the vein. A venotomy was made through the venous anastomosis there was significant hyperplasia at this level. This was removed. Patch venoplasty with a bovine pericardial patch was performed. 6 sutures of 6-0 Prolene were utilized for hemostasis. At the conclusion of this there was good adequate flow through the graft with improvement of the outflow signals. Her venous outflow continues to be small in nature. The area was then copiously irrigated with antibiotic saline. The wound was then reapproximated with interrupted sutures of 3-0 Vicryl. The skin was closed with running 4-0 Monocryl. Skin glue was placed. Patient maintained good augmentable flow through the graft. Good capillary refill distally. The patient allowed awaken from anesthesia and transferred to recovery in stable condition. Plan - Discharge Summary Discharge Rx Participant: No New Discharge Prescriptions: No Action Simvastatin [Zocor] 20 mg PO HS Insulin Glargine [Lantus] 22 unit SQ BID Calcium Acetate [PhosLo] 2,001 mg PO TID-W/MEALS Aspirin 325 mg PO HS Omeprazole 20 mg PO DAILY PRN PRN Reason: reflux Folic Acid-Vit B Complex-Vit C [Nephrocaps] 1 mg PO DAILY Insulin Glulisine [Apidra Solostar] 22 unit SQ AC-TID Levothyroxine Sodium [Synthroid] 150 mcg PO QAM Discharge Medication List Aspirin 325 mg PO HS 07/28/19 [History] Calcium Acetate [PhosLo] 2,001 mg PO TID-W/MEALS 07/28/19 [History] Insulin Glargine [Lantus] 22 unit SQ BID 07/28/19 [History] Omeprazole 20 mg PO DAILY PRN 07/28/19 [History] Simvastatin [Zocor] 20 mg PO HS 07/28/19 [History] Folic Acid-Vit B Complex-Vit C [Nephrocaps] 1 mg PO DAILY 08/04/19 [History] Insulin Glulisine [Apidra Solostar] 22 unit SQ AC-TID 03/25/20 [History] Levothyroxine Sodium [Synthroid] 150 mcg PO QAM 03/25/20 [History] Follow up Appointment(s)/Referral(s): Tracy Chen DO [STAFF PHYSICIAN] - 2 Weeks Activity/Diet/Wound Care/Special Instructions: Resume regular activity. Resume regular medications. May begin using graft at dialysis in 5 days, staying away from incision site.
[2020-03-31 17:52] VITALS: TEMP 97
[2020-03-31 18:04] VITALS: RESP 16
[2020-03-31 18:09] LABS: Glucose,Whole Blood 193 mg/dL (75-99)
[2020-03-31 18:43] VITALS: BP 124/58; PULSE 78
== END 2020-03-31 19:15 | disposition home or self-care (01) ==
LOC: OR 12:32
PROVIDERS: ATTEND Surgery
DX: T82.868A Thrombosis due to vascular prosthetic devices, implants and grafts, initial encounter (principal); N18.6 End stage renal disease; I12.0 Hypertensive chronic kidney disease with stage 5 chronic kidney disease or end stage renal disease; E11.22 Type 2 diabetes mellitus with diabetic chronic kidney disease; E07.9 Disorder of thyroid, unspecified; E66.9 Obesity, unspecified; K08.89 Other specified disorders of teeth and supporting structures; E78.5 Hyperlipidemia, unspecified; G47.33 Obstructive sleep apnea (adult) (pediatric); K21.9 Gastro-esophageal reflux disease without esophagitis; Z79.4 Long term (current) use of insulin; Z79.890 Hormone replacement therapy; Z79.899 Other long term (current) drug therapy; Z99.2 Dependence on renal dialysis; Z98.890 Other specified postprocedural states; Z68.43 Body mass index [BMI] 50.0-59.9, adult; Z99.89 Dependence on other enabling machines and devices; Z79.82 Long term (current) use of aspirin; Z82.49 Family history of ischemic heart disease and other diseases of the circulatory system; Z84.1 Family history of disorders of kidney and ureter
CPT/HCPCS: 36833; 86900; 86901; 80048; 85025; 86850; C1757 ×2; C1781; J2250; J1644; J2370; J2710; J2405; J0690; J2001; J3010; J0330; J2704

== ENCOUNTER 2020-05-11 12:55 | Observation (INO) | payer MEDICARE, BC, OTHER ==
[2020-05-09 08:20] VITALS: BMI 60.0
[~2020-05-11 12:55] MED LIST changes: -LACTATED RINGERS 1,000 ML IV SCH; +ceFAZolin 3 GM in SODIUM CHLORIDE 0.9% 100 ML IVPB PRN
[2020-05-11] MEDS: LACTATED RINGERS 1,000 ML IV SCH ×2 (13:40→22:47)
[2020-05-11 13:44] LABS: Glucose,Whole Blood 271 mg/dL (75-99)
[2020-05-11 13:54] LABS: Basophils % (A) 1 %; Eosinophils # (A) 0.2 k/uL (0-0.7); Eosinophils % (A) 4 %; HCT 34.5 % (34.0-46.0); HGB 11.7 gm/dL (11.4-16.0); Lymphocytes # (A) 2.1 k/uL (1.0-4.8); Lymphocytes % (A) 35 %; MCH 34.8 pg (25.0-35.0); MCHC 33.9 g/dL (31.0-37.0); MCV 102.8 fL (80.0-100.0); Macrocytosis Slight; Mean Platelet Volume 8.8; Monocytes # (A) 0.3 k/uL (0-1.0); Monocytes % (A) 5 %; Neutrophils # (A) 3.2 k/uL (1.3-7.7); Neutrophils % (A) 55 %; Platelet Count 163 k/uL (150-450); RBC 3.36 m/uL (3.80-5.40); RDW 13.4 % (11.5-15.5); WBC 5.9 k/uL (3.8-10.6)
[2020-05-11] MEDS ORDERED: SODIUM CHLORIDE 0.9% 1,000 ML IV ONE (13:55)
[2020-05-11] MEDS ORDERED: INSULIN ASPART (NovoLOG) 100 UNIT/ML VIAL SQ ONE ×2 (14:04→19:47)
[2020-05-11 14:11] LABS: Potassium 4.8 mmol/L (3.5-5.1)
[2020-05-11] MEDS ORDERED: HEPARIN SODIUM,PORCINE 5,000 UNIT/ML 1 ML VIAL ONE (15:31)
[2020-05-11] MEDS ORDERED: fentaNYL (PF) 50 MCG/ML 2 ML AMP ONE (15:31)
[2020-05-11] MEDS ORDERED: diphenhydrAMINE 50 MG/ML 1 ML VIAL ONE (15:31)
[2020-05-11] MEDS ORDERED: PHENYLEPHRINE-0.9% NACL SYG 1,000 MCG/10 ML SYRINGE ONE (15:31)
[2020-05-11] MEDS ORDERED: SUCCINYLCHOLINE CHLORIDE VIAL 200 MG/10 ML VIAL IV ONE (15:31)
[2020-05-11] MEDS ORDERED: PROPOFOL 10 MG/ML 20 ML VIAL IV ONE (15:31)
[2020-05-11] MEDS ORDERED: BUPIVACAINE (PF) 0.5% 30 ML VIAL SQ ONE ×2 (16:28)
[2020-05-11] MEDS ORDERED: LIDOCAINE 1% INJ 10MG/ML (20 ML MDV) SQ ONE ×2 (16:29)
[2020-05-11] MEDS ORDERED: ceFAZolin 2,000 MG in SODIUM CHLORIDE 0.9% 500 ML IRRIGATION ONE (16:32)
[2020-05-11] MEDS ORDERED: SODIUM CHLORIDE 0.9% 500 ML 500 ML with HEPARIN SODIUM,PORCINE 5,000 UNIT IV ONE ×2 (16:32)
[2020-05-11] MEDS ORDERED: THROMBIN (BOVINE) 5,000 UNIT VIAL TOPICAL ONE (17:59)
[2020-05-11] MEDS ORDERED: GELATIN SPONGE,ABSORB (LARGE) 1 EACH SPONGE TOPICAL ONE (18:00)
[2020-05-11 19:17] LABS: Glucose,Whole Blood 260 mg/dL (75-99)
--- NOTE | 2020-05-11 19:19 | P.OP ---
Date of Procedure: 05/11/20 Description of Procedure: Preoperative diagnosis: End-stage renal disease on dialysis, morbid obesity Postoperative diagnosis: Same Procedure: [Left upper extremity axillary loop graft] Surgeon: Tracy Chen D.O. EBL: [75 mL] IV fluids: [See records] Urine output: [None measured] Drains: [None] Complications: [None immediately apparent] Condition: [Stable to recovery] Operative indication and findings: [The patient is a 65-year-old female with end-stage renal disease who has failed previous multiple grafts and presents today for left upper extremity loop axillary graft. Risks and benefits were discussed. She seemingly understood and was willing to proceed.] Procedure in detail: [The patient was taken to the operative suite and placed in supine position. The left upper extremity and chest were prepped and draped in usual sterile fashion. A preprocedure timeout was performed, all parties were in agreement. The ultrasound was utilized and the axillary artery and vein were identified. The skin overlying was anesthetized 1% lidocaine plain. An incision was made in the axilla and a transverse fashion and carried down through subcutaneous tissues to the fascia. This dissection was very deep approximately 3-4 cm to get to the vessels. The fascia was incised and the vein was identified. It was cleared of its surrounding tissues. The artery was identified and cleared circumferentially proximally and distally. After that a subcutaneous plane was made and a counterincision was made at the proposed apex of the loop. A 4 x 7 long PTFE graft was tunneled and the patient was heparinized. After appropriate heparinization flow was occluded through the artery and arteriotomy was made. There was a small area of posterior flap that was created therefore was tacked down with 7-0 Prolene. The anastomosis was created with 6-0 Prolene. The graft was flushed prior to completion. That point flow was occluded through the graft and thrombin and Gelfoam was utilized for hemostasis of the anastomosis. Attention was then turned towards the vein. A Satinsky clamp was placed and a venotomy was performed. Anastomosis was performed using 6-0 Prolene. Prior to completion of the anastomosis the vein was allowed to backbleed and flushed. Pictures sutures of 6-0 Prolene were used for hemostasis. Flow was opened then through the artery and through the graft itself. Doppler was utilized to confirm proximal and distal flow to the anastomoses at both spots. There maintained Doppler signal at the radial artery. The wound was then copiously irrigated. Given the size of her arm, multiple repositions were performed in order to assure no kinking of the graft with different positions. It appeared sufficient with good turbulent flow in the vein throughout all positions. Again the wound was irrigated. The deep dermal tissues were reapproximated with interrupted sutures of inverted 3-0 Vicryl. The skin was reapproximated at both sites with running 4-0 Monocryl. Skin glue was placed. The patient was allowed awaken from anesthesia and transferred to recovery in stable condition having tolerated the procedure well. Plan - Discharge Summary Discharge Rx Participant: No New Discharge Prescriptions: No Action Simvastatin [Zocor] 20 mg PO HS Insulin Glargine [Lantus] 22 unit SQ BID Calcium Acetate [PhosLo] 2,001 mg PO TID-W/MEALS Aspirin 325 mg PO HS Omeprazole 20 mg PO DAILY PRN PRN Reason: reflux Folic Acid-Vit B Complex-Vit C [Nephrocaps] 1 mg PO DAILY Insulin Glulisine [Apidra Solostar] 22 unit SQ AC-TID Levothyroxine Sodium [Synthroid] 150 mcg PO QAM Discharge Medication List Aspirin 325 mg PO HS 07/28/19 [History] Calcium Acetate [PhosLo] 2,001 mg PO TID-W/MEALS 07/28/19 [History] Insulin Glargine [Lantus] 22 unit SQ BID 07/28/19 [History] Omeprazole 20 mg PO DAILY PRN 07/28/19 [History] Simvastatin [Zocor] 20 mg PO HS 07/28/19 [History] Folic Acid-Vit B Complex-Vit C [Nephrocaps] 1 mg PO DAILY 08/04/19 [History] Insulin Glulisine [Apidra Solostar] 22 unit SQ AC-TID 03/25/20 [History] Levothyroxine Sodium [Synthroid] 150 mcg PO QAM 03/25/20 [History]
[2020-05-11] MEDS ORDERED: PANTOPRAZOLE 40 MG TABLET PO PRN (19:22)
[2020-05-11] MEDS: ONDANSETRON 4 MG/2 ML VIAL IVP PRN (20:53)
[2020-05-11 20:58] LABS: Glucose,Whole Blood 287 mg/dL (75-99)
[2020-05-11] MEDS ORDERED: ATORVASTATIN 10 MG TAB PO SCH (21:00)
[2020-05-11] MEDS ORDERED: HYDROmorphone 1 MG/ML 1 ML SYRINGE IVP PRN (21:45)
[2020-05-11] MEDS: INSULIN ASPART (NovoLOG) 100 UNIT/ML VIAL SQ SCH (22:31)
[2020-05-11] MEDS: ceFAZolin 3 GM in SODIUM CHLORIDE 0.9% 100 ML IVPB SCH (23:16)
[2020-05-11] MEDS: HYDROcodone/APAP 5-325MG 1 EACH TAB PO PRN (23:22)
[2020-05-12] MEDS: LACTATED RINGERS 1,000 ML IV SCH ×2 (00:45→07:01)
[2020-05-12] MEDS: ONDANSETRON 4 MG/2 ML VIAL IVP PRN (02:00)
[2020-05-12] MEDS: HYDROcodone/APAP 5-325MG 1 EACH TAB PO PRN (05:26)
[2020-05-12] MEDS: ceFAZolin 3 GM in SODIUM CHLORIDE 0.9% 100 ML IVPB SCH (06:20)
[2020-05-12] MEDS ORDERED: LEVOTHYROXINE 75 MCG TAB PO SCH (06:30)
[2020-05-12] MEDS ORDERED: CALCIUM ACETATE 667 MG TAB PO SCH (07:30)
--- NOTE | 2020-05-12 08:00 | P.DS ---
Providers Date of admission: 05/12/20 07:41 Expected date of discharge: 05/12/20 Attending physician: Tracy Chen DO Primary care physician: Robert Fernandez MD Hospital Course: This is a 65-year-old female with end-stage renal disease who came in for outpatient procedure of a left upper extremity loop graft. The patient underwent the left upper extremity loop graft yesterday with Dr. Chen, the patient has some difficulty with anesthesia with nausea and vomiting therefore is admitted overnight for observation. She is postop day #1. Assessment: General appearance: The patient is alert, oriented, in no acute distress. Mildly obese. HET: Head is normocephalic and atraumatic. . Neck: Supple without lymphadenopathy. Trachea midline. Heart: S1 S2. Regular rate and rhythm. Lungs: No crackles or wheezes are heard. Chest: Normal expansion, tunneled catheter intact right chest wall. Abdomen: Soft, nontender, nondistended.. Extremities: Left upper extremity loop graft with glue, well approximated. Palpable thrill some surrounding ecchymosis. Neurological: No focal deficits. Strength and sensation are grossly intact. Assessment: Postop day #1 for left upper extremity loop graft End-stage renal disease Morbid obesity Hypertension Plan: Patient may be discharged home, with follow-up with Dr. Chen in 1-2 weeks. Hemodialysis per nephrology recommendations. The impression and plan of care has been dictated as directed. Dr. Chen I performed a history and examination of this patient, discussed the same with the dictator. I agree with the dictator's note ,documented as a scribe. Any additional findings or plans will be noted. Procedures: Left upper extremity loop graft Patient Condition at Discharge: Good Plan - Discharge Summary Discharge Rx Participant: No New Discharge Prescriptions: New HYDROcodone/APAP 5-325MG [[place] 5-325] 1 tab PO Q4HR PRN 3 Days #18 tab PRN Reason: Pain Clindamycin [Cleocin] 450 mg PO Q6H 10 Days cap Continue Simvastatin [Zocor] 20 mg PO HS Insulin Glargine [Lantus] 22 unit SQ BID Calcium Acetate [PhosLo] 2,001 mg PO TID-W/MEALS Aspirin 325 mg PO HS Omeprazole 20 mg PO DAILY PRN PRN Reason: reflux Folic Acid-Vit B Complex-Vit C [Nephrocaps] 1 mg PO DAILY Insulin Glulisine [Apidra Solostar] 22 unit SQ AC-TID Levothyroxine Sodium [Synthroid] 150 mcg PO QAM Discharge Medication List Aspirin 325 mg PO HS 07/28/19 [History] Calcium Acetate [PhosLo] 2,001 mg PO TID-W/MEALS 07/28/19 [History] Insulin Glargine [Lantus] 22 unit SQ BID 07/28/19 [History] Omeprazole 20 mg PO DAILY PRN 07/28/19 [History] Simvastatin [Zocor] 20 mg PO HS 07/28/19 [History] Folic Acid-Vit B Complex-Vit C [Nephrocaps] 1 mg PO DAILY 08/04/19 [History] Insulin Glulisine [Apidra Solostar] 22 unit SQ AC-TID 03/25/20 [History] Levothyroxine Sodium [Synthroid] 150 mcg PO QAM 03/25/20 [History] Clindamycin [Cleocin] 450 mg PO Q6H 10 Days cap 05/12/20 [Rx] HYDROcodone/APAP 5-325MG [[place] 5-325] 1 tab PO Q4HR PRN 3 Days #18 tab 05/12/20 [Rx] Activity/Diet/Wound Care/Special Instructions: Follow up in 2 weeks, may resume bathing as previous. Activity as tolerated. Discharge Disposition: HOME SELF-CARE
[2020-05-12 08:14] VITALS: BP 133/79; PULSE 84; RESP 18; TEMP 98.4
[2020-05-12 08:56] LABS: Glucose,Whole Blood 258 mg/dL (75-99)
[2020-05-12] MEDS ORDERED: FOLIC ACID-VIT B COMPLEX-VIT C 1 CAP PO SCH (09:00)
[2020-05-12] MEDS: INSULIN ASPART (NovoLOG) 100 UNIT/ML VIAL SQ SCH (09:01)
== END 2020-05-12 10:30 | disposition home or self-care (01) ==
LOC: OR 12:55 → 6NMEDSUR 19:35 → OR 05-12 07:33 → 6NMEDSUR 05-12 07:41
PROVIDERS: ADMIT Internal Medicine; ATTEND Surgery
DX: E11.22 Type 2 diabetes mellitus with diabetic chronic kidney disease (principal); I12.0 Hypertensive chronic kidney disease with stage 5 chronic kidney disease or end stage renal disease; E66.01 Morbid (severe) obesity due to excess calories; N18.6 End stage renal disease; Z99.2 Dependence on renal dialysis; Z79.4 Long term (current) use of insulin; Z79.82 Long term (current) use of aspirin; Z79.02 Long term (current) use of antithrombotics/antiplatelets; Z68.44 Body mass index [BMI] 60.0-69.9, adult
CPT/HCPCS: 36558; 36830; 82565; 84132; 84520; 85025; G0378; J0330; J1200; J1644; J1100; J0690 ×3; J2405 ×2; J2001; J3010; J2370; J2704; J1170

== ENCOUNTER 2021-08-16 11:44 | Day surgery (SDC) | payer MEDICARE, BC, OTHER ==
[~2021-08-16 11:44] MED LIST changes: -DEXAMETHASONE SOD PHOSPHATE 4 MG/ML 1 ML VIAL IV ONE; -HYDROmorphone 0.5 MG/0.5 ML SYRINGE IVP PRN; -LIDOCAINE 1% (10MG/ML) FOR IV START INTRADERMA PRN; -MIDAZOLAM 2 MG/2 ML VIAL IV PRN; -ONDANSETRON 4 MG/2 ML VIAL IVP ONE; +SODIUM CHLORIDE 0.9% 500 ML 500 ML IV SCH; -ceFAZolin 3 GM in SODIUM CHLORIDE 0.9% 100 ML IVPB PRN
[2021-08-16 12:23] LABS: Glucose,Whole Blood 263 mg/dL (75-99)
[2021-08-16 12:27] VITALS: RESP 18; TEMP 98.3
[2021-08-16] MEDS ORDERED: INSULIN ASPART (NovoLOG) 100 UNIT/ML VIAL SQ SCH (12:30)
[2021-08-16 12:46] LABS: Basophils # (A) 0.1 k/uL (0-0.2); Basophils % (A) 1 %; Eosinophils # (A) 0.2 k/uL (0-0.7); Eosinophils % (A) 3 %; HCT 32.9 % (34.0-46.0); HGB 11.2 gm/dL (11.4-16.0); Lymphocytes % (A) 29 %; MCH 35.5 pg (25.0-35.0); MCV 104.3 fL (80.0-100.0); Macrocytosis Slight; Mean Platelet Volume 9.1; Monocytes # (A) 0.3 k/uL (0-1.0); Monocytes % (A) 4 %; Neutrophils # (A) 4.2 k/uL (1.3-7.7); Neutrophils % (A) 61 %; Platelet Count 232 k/uL (150-450); RBC 3.15 m/uL (3.80-5.40); RDW 12.9 % (11.5-15.5); WBC 6.8 k/uL (3.8-10.6)
[2021-08-16 13:13] LABS: Calcium 8.8 mg/dL (8.4-10.2)
[2021-08-16] MEDS ORDERED: LIDOCAINE 1% INJ 10MG/ML (5 ML VIAL-PF) SQ ONE (13:20)
[2021-08-16] MEDS ORDERED: MIDAZOLAM 2 MG/2 ML VIAL IV ONE (13:25)
[2021-08-16 13:33] LABS: Potassium 4.7 mmol/L (3.5-5.1)
[2021-08-16] MEDS ORDERED: IOPAMIDOL-250 100ML BTL INTRAARTER ONE (13:52)
--- NOTE | 2021-08-16 14:11 | P.OP ---
Date of Procedure: 08/16/21 Description of Procedure: Preoperative diagnosis: [End-stage renal disease, malfunctioning left upper extremity loop axillary graft, elevated velocities on ultrasound] Postoperative diagnosis: Same, arterial inflow anastomosis stenosis, venous outflow anastomosis stenosis, in graft stenosis Procedure: [#1 fistulogram #2 percutaneous transluminal balloon angioplasty of the axillary artery anastomosis #3 percutaneous transluminal balloon angioplasty of the axillary vein anastomosis #4 percutaneous transluminal balloon venoplasty of the graft #5 moderate conscious sedation 38 minutes] Surgeon: Tracy Chen D.O. EBL: [Less than 5 mL] IV fluids: [See records] Urine output: [Not measured] Drains: [None] Complications: [None immediately apparent] Condition: [Stable to recovery] Operative indication and findings: [The patient is a 66-year-old female with end-stage renal disease and a left upper extremity loop axillary graft. They state there is been issues with full clearings and access. On recent ultrasound she did have elevated velocities. Due to this she was scheduled for a fistulogram. Risks and benefits were discussed. She seemingly understood and was willing to proceed.] Procedure in detail: [Patient was taken to the special suite and placed in supine position. A left upper extremity is prepped and draped in usual sterile fashion. A prepubertal timeout was performed, all parties are in agreement. Initially the inflow was accessed with micro-access needle. A short 6-Icelandic sheath was placed via Seldinger technique. An Blanca Alfredo was performed. There was some tortuosity to the area of the arterial anastomosis and what appeared to be some degree of stenosis of the inflow. A 4 x 20 balloon was utilized however there is no significant waste. There appeared to be adequate flow through the graft at that point after balloon angioplasty. Full fistula gram was performed revealing in graft stenosis of the outflow portion as well as significant greater than 80% stenosis of the venous anastomosis. The catheter was redirected to the outflow. Wires and catheters were used to cross the lesion. A 7 x 40 balloon was utilized and insufflated at the in graft stenosis as well as the venous anastomosis with excellent resolution of the stenosis. Flow was brisk through the AV graft. This was removed. The sheath was removed and a [id number] suture was placed. Manual pressure was held until hemostasis was adequate. A dressing was placed. The patient tolerated the procedure well. Plan - Discharge Summary New Discharge Prescriptions: No Action Simvastatin [Zocor] 40 mg PO HS Insulin Glargine [Lantus Vial] 22 unit SQ BID Aspirin 325 mg PO DAILY Omeprazole 20 mg PO DAILY PRN PRN Reason: reflux Insulin Glulisine [Apidra Solostar Pen] 22 unit SQ AC-TID Levothyroxine Sodium [Synthroid] 150 mcg PO QAM carvediloL 25 mg PO BID Discharge Medication List Aspirin 325 mg PO DAILY 07/28/19 [History] Insulin Glargine [Lantus Vial] 22 unit SQ BID 07/28/19 [History] Omeprazole 20 mg PO DAILY PRN 07/28/19 [History] Simvastatin [Zocor] 40 mg PO HS 07/28/19 [History] Insulin Glulisine [Apidra Solostar Pen] 22 unit SQ AC-TID 03/25/20 [History] Levothyroxine Sodium [Synthroid] 150 mcg PO QAM 03/25/20 [History] carvediloL 25 mg PO BID 08/16/21 [History]
[2021-08-16 15:50] VITALS: BP 131/62; PULSE 72
== END 2021-08-16 15:45 | disposition home or self-care (01) ==
LOC: CATHCVL 11:44
PROVIDERS: ATTEND Surgery
DX: T82.858A Stenosis of other vascular prosthetic devices, implants and grafts, initial encounter (principal); I12.0 Hypertensive chronic kidney disease with stage 5 chronic kidney disease or end stage renal disease; E11.22 Type 2 diabetes mellitus with diabetic chronic kidney disease; N18.6 End stage renal disease; Z79.4 Long term (current) use of insulin; Z99.2 Dependence on renal dialysis; E66.9 Obesity, unspecified; Z68.44 Body mass index [BMI] 60.0-69.9, adult; E07.9 Disorder of thyroid, unspecified; Z82.49 Family history of ischemic heart disease and other diseases of the circulatory system; Z84.1 Family history of disorders of kidney and ureter; Z79.890 Hormone replacement therapy; Z79.899 Other long term (current) drug therapy
CPT/HCPCS: 36901; 80048; 85025; C1894; C1769 ×3; C1725; J2250; J2001; Q9966

== ENCOUNTER 2021-10-26 09:17 | Emergency (ER) | payer MEDICARE, BC, OTHER ==
[2021-10-26 09:23] VITALS: BP 135/71; PULSE 86; RESP 18; TEMP 98.4
[2021-10-26] MEDS ORDERED: LIDOCAINE 1% INJ 10MG/ML (20 ML MDV) SQ ONE (09:32)
[2021-10-26] MEDS ORDERED: traMADol 50 MG STARTER PACK 3 TAB BTL PO STA (09:49)
--- NOTE | 2021-10-26 09:49 | ED ---
General Adult HPI - General Chief complaint: Skin/Abscess/Foreign Body Stated complaint: Sore on chest Time Seen by Provider: 10/26/21 09:25 Source: patient, RN notes reviewed Mode of arrival: wheelchair Limitations: no limitations - History of Present Illness Initial comments: Patient is a pleasant 66-year-old female presenting to the emergency department with concern with sore on her left breast. Symptoms have slowly progressed with the past week, discomfort at worse last night. Patient did have a similar episode years ago. No fevers. Patient is a dialysis patient. Patient complains of moderate discomfort at this time. - Related Data Home Medications Medication Instructions Recorded Confirmed Aspirin 325 mg PO DAILY 07/28/19 08/16/21 Insulin Glargine [Lantus Vial] 22 unit SQ BID 07/28/19 08/16/21 Omeprazole 20 mg PO DAILY PRN 07/28/19 08/16/21 Simvastatin [Zocor] 40 mg PO HS 07/28/19 08/16/21 Insulin Glulisine [Apidra Solostar 22 unit SQ AC-TID 03/25/20 08/16/21 Pen] Levothyroxine Sodium [Synthroid] 150 mcg PO QAM 03/25/20 08/16/21 carvediloL 25 mg PO BID 08/16/21 08/16/21 Previous Rx's Medication Instructions Recorded Clindamycin [Cleocin] 2 tab PO Q6H #56 cap 10/26/21 Allergies Allergy/AdvReac Type Severity Reaction Status Date / Time No Known Allergies Allergy Verified 10/26/21 09:23 Review of Systems ROS Statement: Those systems with pertinent positive or pertinent negative responses have been documented in the HPI. ROS Other: All systems not noted in ROS Statement are negative. 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 DIALYSIS FISTULA rt arm, lasik rt eye surgery, right upper ext. AV graft revision 03-31-20 Past Anesthesia/Blood Transfusion Reactions: Postoperative Nausea & Vomiting (PONV) Past Psychological History: No Psychological Hx Reported Smoking Status: Never smoker Past Alcohol Use History: None Reported Past Drug Use History: None Reported - Past Family History Mother Family Medical History: Cancer Brother(s) Family Medical History: Cancer General Exam Limitations: no limitations General appearance: alert, in no apparent distress Eye exam: Present: normal appearance Neck exam: Present: normal inspection Respiratory exam: Present: normal lung sounds bilaterally Cardiovascular Exam: Present: regular rate, normal rhythm GI/Abdominal exam: Present: soft. Absent: tenderness Extremities exam: Present: normal inspection Neurological exam: Present: alert Psychiatric exam: Present: normal affect, normal mood Skin exam: Present: other ((Inferior medial breast with area of induration approximately 2 cm on the left side. There is pin point opening with mild purulent drainage. Left lateral breast also with small area of erythema) Course Vital Signs 10/26/21 09:19 Temperature 98.4 F Pulse Rate 86 Respiratory 18 Rate Blood Pressure 135/71 O2 Sat by Pulse 94 L Oximetry Procedures - Incision & Drainage Consent Obtained: verbal consent Site: chest (Breast, left) Size (cm): 2 Anesthetic Used: lidocaine 1% Amount (mLs): 3 I&D Cleaning Method: Betadine Scalpel Used: #11 I&D Drainage Obtained: Pus Patient Tolerated Procedure: well, no complications Disposition Clinical Impression: Breast abscess Disposition: HOME SELF-CARE Condition: Stable Instructions (If sedation given, give patient instructions): Abscess (ED) Additional Instructions: Prescription has been sent to pharmacy. Please follow-up with primary care physician in the next day or 2 for recheck. Return for increased pain, swelling, redness, fever, worsening symptoms or any other concerns. Prescriptions: Clindamycin [Cleocin] 2 tab PO Q6H #56 cap Is patient prescribed a controlled substance at d/c from ED?: No Referrals: Candelaria Barrera MD [Primary Care Provider] - 1-2 days Time of Disposition: 09:48
== END 2021-10-26 10:01 | disposition home or self-care (01) ==
LOC: EC 09:17
DX: N61.1 Abscess of the breast and nipple (principal); E11.9 Type 2 diabetes mellitus without complications; K21.9 Gastro-esophageal reflux disease without esophagitis; E78.5 Hyperlipidemia, unspecified; I10 Essential (primary) hypertension; M19.90 Unspecified osteoarthritis, unspecified site; I25.2 Old myocardial infarction; E07.9 Disorder of thyroid, unspecified; Z86.73 Personal history of transient ischemic attack (TIA), and cerebral infarction without residual deficits; Z99.2 Dependence on renal dialysis; Z79.82 Long term (current) use of aspirin; Z79.4 Long term (current) use of insulin; Z79.890 Hormone replacement therapy; Z79.899 Other long term (current) drug therapy
CPT/HCPCS: 87070; 87205; 99283; 10060; J2001

== ENCOUNTER 2021-12-16 17:51 | Emergency (ER) | payer MEDICARE, BC ==
[2021-12-16 18:13] VITALS: RESP 18
[2021-12-16 19:03] LABS: Basophils # (A) 0.1 k/uL (0-0.2); Basophils % (A) 1 %; Eosinophils # (A) 0.2 k/uL (0-0.7); Eosinophils % (A) 3 %; HCT 31.2 % (34.0-46.0); HGB 10.7 gm/dL (11.4-16.0); Lymphocytes # (A) 1.6 k/uL (1.0-4.8); Lymphocytes % (A) 25 %; MCH 35.1 pg (25.0-35.0); MCHC 34.4 g/dL (31.0-37.0); MCV 102.1 fL (80.0-100.0); Macrocytosis Slight; Mean Platelet Volume 9.1; Monocytes # (A) 0.3 k/uL (0-1.0); Monocytes % (A) 4 %; Neutrophils # (A) 4.2 k/uL (1.3-7.7); Neutrophils % (A) 65 %; Platelet Count 195 k/uL (150-450); RBC 3.06 m/uL (3.80-5.40); RDW 13.5 % (11.5-15.5); WBC 6.5 k/uL (3.8-10.6)
[2021-12-16 19:14] LABS: Albumin 3.9 g/dL (3.5-5.0); Calcium 9.1 mg/dL (8.4-10.2); Potassium 3.1 mmol/L (3.5-5.1); Total Bilirubin 0.3 mg/dL (0.2-1.3); Total Protein 7.2 g/dL (6.3-8.2)
[2021-12-16 19:16] LABS: INR 0.9 (<1.2); Prothrombin Time 10.1 sec (9.0-12.0)
--- NOTE | 2021-12-16 20:05 | XR ---
EXAMINATION TYPE: XR chest 2V DATE OF EXAM: 12/16/2021 COMPARISON: 03/16/2020 HISTORY: Dizziness TECHNIQUE: 2 views FINDINGS: There is no heart failure nor confluent pneumonic infiltrate. Costophrenic angles are clear . There are no hilar masses. Bony thorax is intact. IMPRESSION: No active cardiopulmonary disease. Normal heart.
[2021-12-16] MEDS ORDERED: POTASSIUM CHLORIDE ER 20 MEQ TAB.ER PO STA (20:07)
[2021-12-16] MEDS ORDERED: HYDROcodone/APAP 10-325MG 1 EACH TAB PO ONE (20:10)
[2021-12-16] MEDS ORDERED: PENICILLIN V POTASSIUM 250 MG TAB PO STA (20:11)
--- NOTE | 2021-12-16 20:15 | ED ---
Dizziness HPI - General Chief Complaint: Dizziness Stated Complaint: dizziness Time Seen by Provider: 12/16/21 18:17 Source: patient, EMS Mode of arrival: EMS Limitations: no limitations - History of Present Illness Initial Comments: Patient is a 58-year-old female with a past medical history of hypertension, hyperlipidemia, diabetes mellitus, and ESRD on hemodialysis who presents to the emergency department for evaluation of syncopal episode. She states she was at dialysis today and now after she got home she felt lightheaded and dizzy as if the room was spinning while sitting on her chair watching TV. Patient reports possible syncopal episode for "a few seconds." Patient did not fall off her chair. Ambulance was called and on arrival her blood pressure was found to be in the 80s/40s. EMS gave her 200 mL of IV fluids which improved pressure.Currently patient denies lightheadedness, dizziness, palpitations, chest pain, shortness of breath, abdominal pain, nausea, vomiting, diarrhea, burning with urination. Has no concerns now. Documentation does list history of myocardial infarction which patient denies. Denies history of syncope and arrhythmia. Denies family history of arrhythmia. Patient does mention her oral intake has been significantly limited due to tooth pain. Patient states she has multiple cavities and has been trying to get into a dentist but is having issues with her insurance. Denies fever, chills, gum and cheek swelling. - Related Data Home Medications Medication Instructions Recorded Confirmed Aspirin 325 mg PO DAILY 07/28/19 12/21/21 Insulin Glargine [Lantus Vial] 33 unit SQ BID 07/28/19 12/21/21 Simvastatin [Zocor] 40 mg PO HS 07/28/19 12/21/21 Levothyroxine Sodium [Synthroid] 150 mcg PO QAM 03/25/20 12/21/21 carvediloL 25 mg PO HS 08/16/21 12/21/21 Calcium Acetate [Phoslo] 1,334 mg PO 0800,1200 12/20/21 12/21/21 Calcium Acetate [Phoslo] 2,001 mg PO 1800 12/20/21 12/21/21 Ergocalciferol [Vitamin D2 (1250 1,250 mcg PO WEEKLY 12/20/21 12/21/21 Mcg = 46410 Iu)] INSULIN LISPRO (humaLOG) [humaLOG] 22 units SQ W/SUPPER 12/20/21 12/21/21 INSULIN LISPRO (humaLOG) [humaLOG] 25 units SQ W/BRKFST 12/20/21 12/21/21 INSULIN LISPRO (humaLOG) [humaLOG] 25 units SQ W/LUNCH 12/20/21 12/21/21 Levothyroxine Sodium [Synthroid] 225 mcg PO GILLESPIE 12/20/21 12/21/21 traZODone HCL [Desyrel] 50 mg PO HS 12/20/21 12/21/21 Allergies Allergy/AdvReac Type Severity Reaction Status Date / Time No Known Allergies Allergy Verified 12/21/21 13:21 Review of Systems ROS Statement: Those systems with pertinent positive or pertinent negative responses have been documented in the HPI. ROS Other: All systems not noted in ROS Statement are negative. 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 DIALYSIS FISTULA rt arm, lasik rt eye surgery, right upper ext. AV graft revision 03-31-20 Past Anesthesia/Blood Transfusion Reactions: Postoperative Nausea & Vomiting (PONV) Past Psychological History: No Psychological Hx Reported Smoking Status: Never smoker Past Alcohol Use History: None Reported Past Drug Use History: None Reported - Past Family History Mother Family Medical History: Cancer Brother(s) Family Medical History: Cancer General Exam Limitations: no limitations General appearance: alert, in no apparent distress Head exam: Present: atraumatic, normocephalic, normal inspection Eye exam: Present: normal appearance, PERRL, EOMI. Absent: scleral icterus, conjunctival injection, periorbital swelling ENT exam: Present: normal oropharynx, mucous membranes dry Respiratory exam: Present: normal lung sounds bilaterally. Absent: respiratory distress, wheezes, rales, rhonchi, stridor Cardiovascular Exam: Present: regular rate, normal rhythm, normal heart sounds. Absent: systolic murmur, diastolic murmur, rubs, gallop, clicks GI/Abdominal exam: Present: soft, normal bowel sounds. Absent: distended, tenderness, guarding, rebound, rigid Neurological exam: Present: alert, oriented X3, CN II-XII intact Psychiatric exam: Present: normal affect, normal mood Skin exam: Present: warm, dry, intact, normal color. Absent: rash Course Vital Signs 12/16/21 12/16/21 12/16/21 17:58 19:12 20:00 Temperature 97.8 F 98.4 F Pulse Rate 56 L 61 68 Respiratory 18 18 Rate Blood Pressure 113/46 117/54 136/53 O2 Sat by Pulse 95 98 97 Oximetry Medical Decision Making - Medical Decision Making This 66-year-old female presenting after possible syncopal episode.Patient is well-appearing. Mucous membranes are dry. Blood pressure stable 113/46. Pulse 56. Orthostatics negative. EKG shows no acute abnormality. Laboratory studies obtained. Lactic acid is elevated at 3.6. Potassium is low at 3.1. Creatinine is 3.86 s/p dialysis today. Troponin is within normal limits. Other laboratory studies are relatively unremarkable. Due to end-stage renal disease, further IV fluids were not given in the ED. Blood pressure remained stable. I did recommend patient stays for observation for possible syncope however she declined. Patient feels well and will be discharged with strict return parameters. She will increase fluid intake. With patient's report of severe dental pain I will prophylactically treat her for infection. Patient will be sent home with antibiotic and short course of [place] for severe pain. Dr. Cantu is my attending. - Lab Data Result diagrams: 12/16/21 18:48 12/16/21 18:48 Lab Results 12/16/21 12/16/21 12/16/21 Range/Units 18:48 18:48 18:48 WBC 6.5 (3.8-10.6) k/uL RBC 3.06 L (3.80-5.40) m/uL Hgb 10.7 L (11.4-16.0) gm/dL Hct 31.2 L (34.0-46.0) % MCV 102.1 H (80.0-100.0) fL MCH 35.1 H (25.0-35.0) pg MCHC 34.4 (31.0-37.0) g/dL RDW 13.5 (11.5-15.5) % Plt Count 195 (150-450) k/uL MPV 9.1 Neutrophils % 65 % Lymphocytes % 25 % Monocytes % 4 % Eosinophils % 3 % Basophils % 1 % Neutrophils # 4.2 (1.3-7.7) k/uL Lymphocytes # 1.6 (1.0-4.8) k/uL Monocytes # 0.3 (0-1.0) k/uL Eosinophils # 0.2 (0-0.7) k/uL Basophils # 0.1 (0-0.2) k/uL Macrocytosis Slight PT 10.1 (9.0-12.0) sec INR 0.9 (<1.2) Sodium 140 (137-145) mmol/L Potassium 3.1 L (3.5-5.1) mmol/L Chloride 95 L (98-107) mmol/L Carbon Dioxide 29 (22-30) mmol/L Anion Gap 16 mmol/L BUN 13 (7-17) mg/dL Creatinine 3.86 H (0.52-1.04) mg/dL Est GFR (CKD-EPI)AfAm 13 (>60 ml/min/1.73 sqM) Est GFR (CKD-EPI)NonAf 11 (>60 ml/min/1.73 sqM) Glucose 140 H (74-99) mg/dL Lactic Ac Sepsis Rflx Plasma Lactic Acid Charly (0.7-2.0) mmol/L Calcium 9.1 (8.4-10.2) mg/dL Magnesium 2.0 (1.6-2.3) mg/dL Total Bilirubin 0.3 (0.2-1.3) mg/dL AST 50 H (14-36) U/L ALT 47 H (4-34) U/L Alkaline Phosphatase 84 (38-126) U/L Troponin I (0.000-0.034) ng/mL Total Protein 7.2 (6.3-8.2) g/dL Albumin 3.9 (3.5-5.0) g/dL 12/16/21 12/16/21 12/16/21 Range/Units 18:48 18:48 19:32 WBC (3.8-10.6) k/uL RBC (3.80-5.40) m/uL Hgb (11.4-16.0) gm/dL Hct (34.0-46.0) % MCV (80.0-100.0) fL MCH (25.0-35.0) pg MCHC (31.0-37.0) g/dL RDW (11.5-15.5) % Plt Count (150-450) k/uL MPV Neutrophils % % Lymphocytes % % Monocytes % % Eosinophils % % Basophils % % Neutrophils # (1.3-7.7) k/uL Lymphocytes # (1.0-4.8) k/uL Monocytes # (0-1.0) k/uL Eosinophils # (0-0.7) k/uL Basophils # (0-0.2) k/uL Macrocytosis PT (9.0-12.0) sec INR (<1.2) Sodium (137-145) mmol/L Potassium (3.5-5.1) mmol/L Chloride (98-107) mmol/L Carbon Dioxide (22-30) mmol/L Anion Gap mmol/L BUN (7-17) mg/dL Creatinine (0.52-1.04) mg/dL Est GFR (CKD-EPI)AfAm (>60 ml/min/1.73 sqM) Est GFR (CKD-EPI)NonAf (>60 ml/min/1.73 sqM) Glucose (74-99) mg/dL Lactic Ac Sepsis Rflx Y Plasma Lactic Acid Charly 3.6 H* (0.7-2.0) mmol/L Calcium (8.4-10.2) mg/dL Magnesium (1.6-2.3) mg/dL Total Bilirubin (0.2-1.3) mg/dL AST (14-36) U/L ALT (4-34) U/L Alkaline Phosphatase (38-126) U/L Troponin I <0.012 (0.000-0.034) ng/mL Total Protein (6.3-8.2) g/dL Albumin (3.5-5.0) g/dL Disposition Clinical Impression: Lightheadedness, Nausea, Sweating, Dehydration Disposition: Left Against Medical Advice Instructions (If sedation given, give patient instructions): Dehydration (ED), Syncope (ED), Toothache (ED) Additional Instructions: Please take medication as directed. It is very important to follow-up with dentist for tooth pain. Increase fluid intake as much as possible as you appear dehydrated today. Return to the emergency department experience new, concer scooter, or worsening symptoms. Is patient prescribed a controlled substance at d/c from ED?: No Referrals: Candelaria Barrera MD [Primary Care Provider] - 1-2 days Time of Disposition: 20:15
[2021-12-16 20:30] VITALS: BP 136/53; PULSE 68; TEMP 98.4
== END 2021-12-16 20:58 | disposition left against medical advice (07) ==
LOC: EC 17:51
DX: E86.0 Dehydration (principal); I12.0 Hypertensive chronic kidney disease with stage 5 chronic kidney disease or end stage renal disease; E11.22 Type 2 diabetes mellitus with diabetic chronic kidney disease; N18.6 End stage renal disease; E78.5 Hyperlipidemia, unspecified; I25.2 Old myocardial infarction; M19.90 Unspecified osteoarthritis, unspecified site; E07.9 Disorder of thyroid, unspecified; Z86.73 Personal history of transient ischemic attack (TIA), and cerebral infarction without residual deficits; Z99.2 Dependence on renal dialysis; Z79.4 Long term (current) use of insulin; Z79.890 Hormone replacement therapy
CPT/HCPCS: 36415; 71046; 80053; 83605; 83735; 84484; 85025; 85610; 93005; 99284

== ENCOUNTER 2021-12-21 06:56 | Day surgery (SDC) | payer MEDICARE, BC ==
[~2021-12-21 06:56] MED LIST changes: -SODIUM CHLORIDE 0.9% 500 ML 500 ML IV SCH; +ceFAZolin 3 GM in SODIUM CHLORIDE 0.9% 100 ML IVPB PRN
[2021-12-21] MEDS ORDERED: SODIUM CHLORIDE 0.9% 1,000 ML IV ONE (07:28)
[2021-12-21 07:36] VITALS: RESP 18; TEMP 97
[2021-12-21 07:47] LABS: Glucose,Whole Blood 184 mg/dL (70-110)
[2021-12-21 07:56] LABS: Basophils # (A) 0.1 k/uL (0-0.2); Basophils % (A) 1 %; Eosinophils # (A) 0.3 k/uL (0-0.7); Eosinophils % (A) 4 %; HCT 31.9 % (34.0-46.0); HGB 10.5 gm/dL (11.4-16.0); Lymphocytes # (A) 1.8 k/uL (1.0-4.8); Lymphocytes % (A) 29 %; MCH 34.1 pg (25.0-35.0); MCHC 32.8 g/dL (31.0-37.0); MCV 103.8 fL (80.0-100.0); Macrocytosis Slight; Mean Platelet Volume 9.5; Monocytes # (A) 0.3 k/uL (0-1.0); Monocytes % (A) 4 %; Neutrophils # (A) 3.5 k/uL (1.3-7.7); Neutrophils % (A) 58 %; Platelet Count 223 k/uL (150-450); RBC 3.07 m/uL (3.80-5.40); RDW 13.7 % (11.5-15.5)
--- NOTE | 2021-12-21 08:04 | P.HPIHPCON ---
History of Present Illness H&P Date: 12/21/21 Adalgisa is a 66-year-old female with multiple previous dialysis access sites. She most recently has been utilizing an access in the left axilla is a loop graft. It has been functioning well and Saturday was last time it was used. After that day, she was not feeling well and did end up taking a blood pressure medication as well which decreased her blood pressure and made her passed out. She was escorted by EMS to the ER. She believes that at that time there was some grabbing of the armpit or her upper arm, she is not sure. She denies any pain in the area. She denied any other issues however at dialysis on Saturday, they were unable to access the graft. She presents today for open thrombectomy. Consent for Procedure: I have explained the operation/procedure to the patient, including the risks, benefits, side effects, alternative therapies (including not receiving the proposed treatment or service), the likelihood of the patient achieving his/her goals, and potential recuperation problems for the procedure/sedation/analgesia, as well as any blood products, if indicated. I also explained to the patient the risks, benefits and side effects of the alternatives, as well as the risks related to not receiving the proposed procedure, care, treatment, or services. 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 DIALYSIS FISTULA rt arm-old, lasik rt eye surgery, right upper ext. left AV graft revision 03-31-20 Past Anesthesia/Blood Transfusion Reactions: Postoperative Nausea & Vomiting (PONV) Smoking Status: Never smoker - Past Family History Mother Family Medical History: Cancer Brother(s) Family Medical History: Cancer Medications and Allergies Home Medications Medication Instructions Recorded Confirmed Type Aspirin 325 mg PO DAILY 07/28/19 12/21/21 History Insulin Glargine [Lantus Vial] 33 unit SQ BID 07/28/19 12/21/21 History Simvastatin [Zocor] 40 mg PO HS 07/28/19 12/21/21 History Levothyroxine Sodium [Synthroid] 150 mcg PO QAM 03/25/20 12/21/21 History carvediloL 25 mg PO HS 08/16/21 12/21/21 History Calcium Acetate [Phoslo] 1,334 mg PO 0800,1200 12/20/21 12/21/21 History Calcium Acetate [Phoslo] 2,001 mg PO 1800 12/20/21 12/21/21 History Ergocalciferol [Vitamin D2 (1250 1,250 mcg PO WEEKLY 12/20/21 12/21/21 History Mcg = 17745 Iu)] INSULIN LISPRO (humaLOG) [humaLOG] 22 units SQ W/SUPPER 12/20/21 12/21/21 History INSULIN LISPRO (humaLOG) [humaLOG] 25 units SQ W/BRKFST 12/20/21 12/21/21 History INSULIN LISPRO (humaLOG) [humaLOG] 25 units SQ W/LUNCH 12/20/21 12/21/21 History Levothyroxine Sodium [Synthroid] 225 mcg PO GILLESPIE 12/20/21 12/21/21 History traZODone HCL [Desyrel] 50 mg PO HS 12/20/21 12/21/21 History Allergies Allergy/AdvReac Type Severity Reaction Status Date / Time No Known Allergies Allergy Verified 12/16/21 18:13 Surgical - Exam Vital Signs Temp Pulse Resp BP Pulse Ox 97 F L 70 18 195/80 97 12/21/21 07:34 12/21/21 07:34 12/21/21 07:34 12/21/21 07:34 12/21/21 07:34 Gen. is a pleasant morbidly obese female in no acute distress. HEENT is normocephalic. Heart appears regular. Lungs are clear. Left upper extremity loop axillary graft without a palpable pulse or thrill. Mild ecchymosis, patient states this is old. No masses. Abdomen is obese. Extremities are warm and dry. Results - Labs 12/21/21 07:44 Abnormal Lab Results - Last 24 Hours (Table) 12/21/21 12/21/21 Range/Units 07:44 07:45 RBC 3.07 L (3.80-5.40) m/uL Hgb 10.5 L (11.4-16.0) gm/dL Hct 31.9 L (34.0-46.0) % MCV 103.8 H (80.0-100.0) fL POC Glucose (mg/dL) 184 H (70-110) mg/dL Assessment and Plan Assessment: Thrombosed loop axillary graft on the left, end-stage renal disease Plan: Plan for open thrombectomy. Questions are answered. Patient will need to stay after for dialysis as she has already missed one day and today would be her regularly scheduled dialysis today.
[2021-12-21] MEDS ORDERED: ONDANSETRON 4 MG/2 ML VIAL ONE (08:05)
[2021-12-21] MEDS ORDERED: ONDANSETRON 4 MG/2 ML VIAL IVP ONE (08:07)
[2021-12-21] MEDS ORDERED: DEXAMETHASONE SOD PHOSPHATE 4 MG/ML 1 ML VIAL IVP ONE (08:07)
[2021-12-21] MEDS ORDERED: fentaNYL (PF) 50 MCG/ML 2 ML AMP ONE (08:23)
[2021-12-21] MEDS ORDERED: MIDAZOLAM 2 MG/2 ML VIAL ONE (08:23)
[2021-12-21] MEDS ORDERED: PROPOFOL 10 MG/ML 20 ML VIAL IV ONE (08:23)
[2021-12-21] MEDS ORDERED: KETAMINE 10 MG/ML 20 ML VIAL ONE (08:23)
[2021-12-21] MEDS ORDERED: LIDOCAINE 2% INJ 20 MG/ML SQ ONE ×2 (08:56)
[2021-12-21] MEDS ORDERED: HEPARIN SODIUM,PORCINE 2,000 UNIT in SODIUM CHLORIDE 0.9% 500 ML 500 ML IRRIGATION ONE (08:58)
[2021-12-21] MEDS ORDERED: ceFAZolin 2 GM in SODIUM CHLORIDE 0.9% 500 ML 500 ML IRRIGATION ONE (08:59)
--- NOTE | 2021-12-21 09:38 | P.OP ---
Date of Procedure: 12/21/21 Description of Procedure: Preoperative diagnosis: [End-stage renal disease, malfunctioning, thrombosed loop axillary graft] Postoperative diagnosis: Same Procedure: [Open thrombectomy left loop axillary graft] Surgeon: Tracy Chen D.O. EBL: [20 mL] IV fluids: [See records] Urine output: [Not measured] Drains: [None] Complications: [None immediately apparent] Condition: [Stable to recovery] Operative indication and findings: [The patient is a 66-year-old female end- stage renal disease has had multiple previous accesses for dialysis. She has been utilizing a left loop axillary graft well without significant issue until recently she had a hypotensive episode and fainted and subsequently required EMS escorted to the hospital. She is uncertain whether they grab transits with a cause issue with the graft. She had dialysis that same day in the morning without issue. She states it has not been any issue with the graft prior to this. It was found to be thrombosed on her next visit. She presents for open thrombectomy.] Procedure in detail: [Patient was taken preoperatively and placed in supine position. The left arm was prepped and draped in usual sterile fashion. a preprocedural timeout was performed and all parties are in agreement. The skin at the apex the graft was anesthetized incision was made and carried down to the graft. The graft was controlled proximally and distally. A graftotomy was performed. Multiple passes with thrombectomy catheters were made in the proximal and distal direction until adequate appearing blood flow was visualized. There was pulsatile flow in the proximal direction. A significant amount of thrombus was exuded. The catheter was then passed again until no thrombus was removed. The graft was injected with heparinized saline. Again there appeared to be adequate pulse in the graft therefore the procedure was concluded. The graftotomy was suture closed with 6-0 Prolene. The skin was reapproximated with interrupted sutures of 3-0 Vicryl. And subcu tissue and fascia and 4-0 Monocryl. Dressing was placed to the patient was allowed awaken transfer to surgery recovery. We will plan to obtain dialysis later today. If there is significant issue, patient may need to undergo a tunneled catheter.]
[2021-12-21] MEDS ORDERED: NALOXONE 0.4 MG/ML 1 ML VIAL IVP PRN (09:39)
[2021-12-21 10:01] VITALS: BP 164/80; PULSE 57
== END 2021-12-21 10:30 | disposition home or self-care (01) ==
LOC: OR 06:56
PROVIDERS: ATTEND Surgery
DX: T82.868A Thrombosis due to vascular prosthetic devices, implants and grafts, initial encounter (principal); N18.6 End stage renal disease; I12.0 Hypertensive chronic kidney disease with stage 5 chronic kidney disease or end stage renal disease; E11.22 Type 2 diabetes mellitus with diabetic chronic kidney disease; M19.90 Unspecified osteoarthritis, unspecified site; K21.9 Gastro-esophageal reflux disease without esophagitis; Z86.79 Personal history of other diseases of the circulatory system; Z79.899 Other long term (current) drug therapy; Z79.890 Hormone replacement therapy
CPT/HCPCS: 36831; 82565; 84132; 84520; 85025; C1757; J2001; J2250; J1644; J1100; J0690; J2405; J3010; J2704

== ENCOUNTER 2021-12-22 11:11 | Day surgery (SDC) | payer MEDICARE, BC ==
[2021-12-21 13:13] VITALS: BMI 60.5
[~2021-12-22 11:11] MED LIST changes: +ALTEPLASE 10 MG in SODIUM CHLORIDE 0.9% 90 ML IA ONE; -ceFAZolin 3 GM in SODIUM CHLORIDE 0.9% 100 ML IVPB PRN
[2021-12-22] MEDS ORDERED: SODIUM CHLORIDE 0.9% 1,000 ML IV ONE (11:37)
[2021-12-22 11:39] LABS: Glucose,Whole Blood 266 mg/dL (70-110)
[2021-12-22] MEDS ORDERED: ALTEPLASE 10 MG in SODIUM CHLORIDE 0.9% 90 ML IA ONE ×2 (12:00→14:00)
[2021-12-22 12:05] VITALS: RESP 16; TEMP 98.1
[2021-12-22] MEDS ORDERED: INSULIN ASPART (NovoLOG) 100 UNIT/ML VIAL SQ ONE (12:30)
[2021-12-22] MEDS ORDERED: ALTEPLASE 10 MG in SODIUM CHLORIDE 0.9% 50 ML IA ONE (13:50)
[2021-12-22] MEDS ORDERED: fentaNYL (PF) 50 MCG/ML 2 ML AMP ONE (14:11)
[2021-12-22] MEDS ORDERED: MIDAZOLAM 2 MG/2 ML VIAL IVP ONE (14:12)
[2021-12-22] MEDS ORDERED: fentaNYL (PF) 50 MCG/ML 2 ML AMP IVP ONE (14:12)
[2021-12-22] MEDS ORDERED: HEPARIN SODIUM 1,000 UN/ML (10ML VL) ONE (14:15)
[2021-12-22] MEDS ORDERED: LIDOCAINE 1% INJ 10MG/ML (30 ML VIAL-PF) SQ ONE (14:16)
[2021-12-22] MEDS ORDERED: ALTEPLASE 2 MG VIAL (CATHFLO) IV ONE (15:30)
[2021-12-22] MEDS ORDERED: IOPAMIDOL-250 100ML BTL INTRAARTER ONE (16:05)
[2021-12-22 16:10] LABS: Calcium 8.6 mg/dL (8.4-10.2); Potassium 4.9 mmol/L (3.5-5.1)
--- NOTE | 2021-12-22 16:49 | P.OP ---
Date of Procedure: 12/22/21 Description of Procedure: Preoperative diagnosis: [ESRD, Thrombosed loop AVG] Postoperative diagnosis: Same Procedure: [US guided left upper extremity graft access antegrade and retrograde Pharmacal mechanical thrombectomy with AngioJet Fistulogram Percutaneous transluminal balloon venoplasty 6 x 40, 7 x 40 Previous transluminal balloon angioplasty of arterial inflow 4 x 20 Moderate conscious sedation 96 minutes] Surgeon: Tracy Chen D.O. EBL: [10 mL] IV fluids: [See records] Urine output: [None] Drains: [None] Complications: [None immediately apparent] Condition: [Stable to recovery] Operative indication and findings: [The patient is a 66-year-old female with a loop axillary graft on the left upper extremity. She had an episode recently that required EMS transport and then subsequently had thrombosis of her graft. Attempts are made yesterday to open the graft itself which seems successful at the time is open thrombectomy however the patient went to dialysis it did not have adequate flow to dialyze therefore the patient presented again today and at this point a repeat fistulogram and attempt at opening this graft were offered with the caveat that if it is unable to be opened a a catheter would become necessary. She seemingly understood and was willing to proceed in this manner.] Procedure in detail: [Patient was taken to the special suite and placed in supine position. The left upper extremity is prepped and draped in usual sterile fashion. A preprocedure timeout was performed, all parties were in agreement. Using the ultrasound, the graft was accessed and antegrade and retrograde fashion. Seldinger technique was used and 6-Macedonian sheaths were placed. Catheters and wires were used initially to access the outflow vein. Confirmatory patency of the shawnee vein was performed with a catheter. At that point the AngioJet our pulse was instilled in the outflow as well as in the corresponding inflow after appropriate cannulation of the arterial system. This was allowed to instill and once timing was sufficient, the suction thrombectomy portion was applied initially at the outflow followed by the inflow. An angiogram was performed and there was notable stenosis at the outflow anastomosis as well as mid graft at the area of multiple accesses. This area was ballooned with a 6 x 40 balloon. The resultant image was improved however difficult to visualize fully at the level of the in graft stenosis as that is a portion where the sheath access site had been performed. The inflow was then treated, a 4 x 20 balloon was insufflated at the arterial anastomosis. Repeat imaging was performed, the in graft stenosis and then treated with a 7 x 40 balloon. There was significant improvement of flow through the vessel with adequate improvement of areas of stenosis. The catheters and wires removed. The sheaths were removed, a suture was placed and pressure was held until hemostasis was appropriate. Dressings were placed. Patient tolerated the procedure well.] Plan - Discharge Summary Discharge Rx Participant: No New Discharge Prescriptions: No Action Simvastatin [Zocor] 40 mg PO HS Insulin Glargine [Lantus Vial] 33 unit SQ BID Aspirin 325 mg PO DAILY Levothyroxine Sodium [Synthroid] 150 mcg PO QAM carvediloL 25 mg PO HS Calcium Acetate [Phoslo] 1,334 mg PO 0800,1200 traZODone HCL [Desyrel] 50 mg PO HS INSULIN LISPRO (humaLOG) [humaLOG] 25 units SQ W/BRKFST Calcium Acetate [Phoslo] 2,001 mg PO 1800 Levothyroxine Sodium [Synthroid] 225 mcg PO GILLESPIE Ergocalciferol [Vitamin D2 (1250 Mcg = 17320 Iu)] 1,250 mcg PO WEEKLY INSULIN LISPRO (humaLOG) [humaLOG] 22 units SQ W/SUPPER INSULIN LISPRO (humaLOG) [humaLOG] 25 units SQ W/LUNCH Discharge Medication List Aspirin 325 mg PO DAILY 07/28/19 [History] Insulin Glargine [Lantus Vial] 33 unit SQ BID 07/28/19 [History] Simvastatin [Zocor] 40 mg PO HS 07/28/19 [History] Levothyroxine Sodium [Synthroid] 150 mcg PO QAM 03/25/20 [History] carvediloL 25 mg PO HS 08/16/21 [History] Calcium Acetate [Phoslo] 1,334 mg PO 0800,1200 12/20/21 [History] Calcium Acetate [Phoslo] 2,001 mg PO 1800 12/20/21 [History] Ergocalciferol [Vitamin D2 (1250 Mcg = 52949 Iu)] 1,250 mcg PO WEEKLY 12/20/21 [History] INSULIN LISPRO (humaLOG) [humaLOG] 22 units SQ W/SUPPER 12/20/21 [History] INSULIN LISPRO (humaLOG) [humaLOG] 25 units SQ W/BRKFST 12/20/21 [History] INSULIN LISPRO (humaLOG) [humaLOG] 25 units SQ W/LUNCH 12/20/21 [History] Levothyroxine Sodium [Synthroid] 225 mcg PO GILLESPIE 12/20/21 [History] traZODone HCL [Desyrel] 50 mg PO HS 12/20/21 [History] Follow up Appointment(s)/Referral(s): Tracy Chen DO [STAFF PHYSICIAN] - 10 Days Discharge Disposition: HOME SELF-CARE
[2021-12-22 16:58] VITALS: BP 137/63; PULSE 59
--- NOTE | 2021-12-25 08:54 | IR ---
Fluoroscopy HISTORY: Thrombosis AV fistula 17.9 minutes fluoroscopy time supplied to the referring clinician. 253 intraoperative C-arm images d ocument the procedure. See dictated report from vascular surgery.
== END 2021-12-22 17:09 | disposition home or self-care (01) ==
LOC: CATHCVL 11:11
PROVIDERS: ATTEND Surgery
DX: N18.6 End stage renal disease (principal); T82.868A Thrombosis due to vascular prosthetic devices, implants and grafts, initial encounter; Z79.82 Long term (current) use of aspirin; Z99.2 Dependence on renal dialysis
CPT/HCPCS: 36830; 36905; 80048; C1757; C1894; C1769 ×4; C1725; J2250; J2001; J3010; Q9966; 36901

== ENCOUNTER 2022-10-17 09:03 | Observation (INO) | payer MEDICARE, BC ==
--- NOTE | 2022-10-17 09:48 | ED ---
General Adult HPI - General Chief complaint: Extremity Problem,Nontraumatic Stated complaint: graft clogged Time Seen by Provider: 10/17/22 09:29 Source: patient, RN notes reviewed Mode of arrival: ambulatory Limitations: no limitations - History of Present Illness Initial comments: Patient is a pleasant 67-year-old female presenting to the emergency department with concerns for her dialysis graft. Patient states it is been present approximately 1-1/2 years. Last dialysis was 5 days ago. Patient was unable to have dialysis yesterday. They did speak with Dr. Chen's office who recommended she come to the emergency department. Patient is symptom-free. - Related Data Home Medications Medication Instructions Recorded Confirmed Aspirin 325 mg PO DAILY@1600 07/28/19 07/21/22 Simvastatin [Zocor] 40 mg PO HS 07/28/19 07/21/22 Levothyroxine Sodium [Synthroid] 150 mcg PO MOTUWETHFRSA 03/25/20 07/21/22 carvediloL 25 mg PO DAILY@1600 08/16/21 07/21/22 Calcium Acetate [PhosLo] 1,334 mg PO AC-BID@1200,1800 12/20/21 07/21/22 Calcium Acetate [PhosLo] 2,001 mg PO AC-BRKFST 12/20/21 07/21/22 Ergocalciferol [Vitamin D2 (1250 1,250 mcg PO GILLESPIE 12/20/21 07/21/22 Mcg = 61450 Iu)] Levothyroxine Sodium [Synthroid] 225 mcg PO GILLESPIE 12/20/21 07/21/22 Calcium Acetate [PhosLo] 667 mg PO DAILY PRN 07/21/22 07/21/22 Insulin Glargine,Hum.rec.anlog 32 units SQ BID 07/21/22 07/21/22 [Lantus Solostar Pen] Insulin Lispro [humaLOG Kwikpen] 23 unit SQ AC-BID@0900,1200 07/21/22 07/21/22 Insulin Lispro [humaLOG Kwikpen] 25 unit SQ AC-SUPPER 07/21/22 07/21/22 Montelukast [Singulair] 10 mg PO HS 07/21/22 07/21/22 Nephro-Nav 1 cap PO DAILY@1600 07/21/22 07/21/22 Allergies Allergy/AdvReac Type Severity Reaction Status Date / Time No Known Allergies Allergy Verified 10/17/22 09:16 Review of Systems ROS Statement: Those systems with pertinent positive or pertinent negative responses have been documented in the HPI. ROS Other: All systems not noted in ROS Statement are negative. Constitutional: Denies: fever Eyes: Denies: eye pain ENT: Denies: ear pain Respiratory: Denies: cough Cardiovascular: Denies: chest pain Endocrine: Denies: fatigue Gastrointestinal: Denies: abdominal pain Genitourinary: Denies: dysuria Musculoskeletal: Denies: back pain Skin: Denies: rash Neurological: Denies: weakness Past Medical History Past Medical History: CVA/TIA, Diabetes Mellitus, Dialysis, Eye Disorder, GERD/Reflux, Hyperlipidemia, Hypertension, Myocardial Infarction ([place]), Osteoart hritis (OA), Renal Disease, Sleep Apnea/CPAP/BIPAP, Thyroid Disorder Additional Past Medical History / Comment(s): Legally blind, 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 DIALYSIS FISTULA rt arm-old, lasik rt eye surgery, right upper ext. left AV graft revision 03-31-20 Past Anesthesia/Blood Transfusion Reactions: Postoperative Nausea & Vomiting (PONV) Past Psychological History: No Psychological Hx Reported Smoking Status: Never smoker Past Alcohol Use History: None Reported Past Drug Use History: None Reported - Past Family History Mother Family Medical History: Cancer Brother(s) Family Medical History: Cancer General Exam Limitations: no limitations General appearance: alert, in no apparent distress Head exam: Present: normocephalic Eye exam: Present: normal appearance, PERRL ENT exam: Present: normal oropharynx Neck exam: Present: normal inspection Respiratory exam: Present: normal lung sounds bilaterally Cardiovascular Exam: Present: regular rate, normal rhythm GI/Abdominal exam: Present: soft. Absent: tenderness Extremities exam: Present: other (Graft left upper arm without thrill) Neurological exam: Present: alert Psychiatric exam: Present: normal affect, normal mood Skin exam: Present: normal color Course Vital Signs 10/17/22 09:14 Temperature 98.1 F Pulse Rate 78 Respiratory 18 Rate Blood Pressure 133/72 O2 Sat by Pulse 95 Oximetry EKG Findings - EKG Results: EKG: interpreted by LUCIUSD, sinus rhythm, normal axis, normal QRS, normal ST/T Medical Decision Making - Medical Decision Making Was pt. sent in by a medical professional or institution (, PA, PAINT COATING MACHINE OPERATOR, urgent care, hospital, or retirement...) When possible be specific @ -Patient was sent in by Dr. Chen office Did you speak to anyone other than the patient for history (EMS, parent, family, police, friend...)? What history was obtained from this source @ -Family is present and helps provide history including last dialysis on Saturday Did you review nursing and triage notes (agree or disagree)? Why? @ -I reviewed and agree with nursing and triage notes Were old charts reviewed (outside hosp., previous admission, EMS record, old EKG, old radiological studies, urgent care reports/EKG's, retirement records)? Report findings @ -No old charts were reviewed Differential Diagnosis (chest pain, altered mental status, abdominal pain women, abdominal pain men, vaginal bleeding, weakness, fever, dyspnea, syncope, headache, dizziness, GI bleed, back pain, seizure, CVA, palpatations, mental health, musculoskeletal)? @ -Differential Weakness: Hypoglycemia, shock, sepsis, hyponatremia, anemia, infection, [place], ETOH, adverse medicine reaction, overdose, stroke, this is not meant to be an all-inclusive list. EKG interpreted by me (3pts min.). @ -As above X-rays interpreted by me (1pt min.). @ -Chest x-ray does not reveal acute process. CT interpreted by me (1pt min.). @ -None done U/S interpreted by me (1pt. min.). @ -None done What testing was considered but not performed or refused? (CT, X-rays, U/S, labs)? Why? @ -None What meds were considered but not given or refused? Why? @ -None Did you discuss the management of the patient with other professionals (professionals i.e. , PA, PAINT COATING MACHINE OPERATOR, lab, RT, psych nurse, home health care social worker, pest control pilot, teacher, principal gifts officer, watch caser)? Give summary @ -Case discussed with Dr. flores, who will admit for Dr. Barrera. Patient is also placed for nephrology and vascular Was smoking cessation discussed for >3mins.? @ -No Was critical care preformed (if so, how long)? @ -32 minutes critical care time Were there social determinants of health that impacted care today? How? (Homelessness, low income, unemployed, alcoholism, drug addiction, transportation, low edu. Level, literacy, decrease access to med. care, detention, rehab)? @ -No Was there de-escalation of care discussed even if they declined (Discuss DNR or withdrawal of care, Hospice)? DNR status @ -No What co-morbidities impacted this encounter? (DM, HTN, Smoking, COPD, CAD, Cancer, CVA, ARF, Chemo, Hep., AIDS, mental health diagnosis, sleep apnea, morbid obesity)? @ -None Was patient admitted / discharged? Hospital course, mention meds given and route, prescriptions, significant lab abnormalities, going to OR and other pertinent info. @ -Patient will be admitted. Patient will need dialysis. Patient provided medications for hyperkalemia. Consults place. Admission orders written. Undiagnosed new problem with uncertain prognosis? @ -No Drug Therapy requiring intensive monitoring for toxicity (Heparin, Nitro, Insulin, Cardizem)? @ -No Were any procedures done? @ -No Diagnosis/symptom? @ -Hyperkalemia. Chronic renal failure. Clogged catheter Acute, or Chronic, or Acute on Chronic? @ -Acute, chronic, acute Uncomplicated (without systemic symptoms) or Complicated (systemic symptoms)? @ -default Side effects of treatment? @ -No Exacerbation, Progression, or Severe Exacerbation? @ -No Poses a threat to life or bodily function? How? (Chest pain, [place], [place], pneumonia, PE, COPD, DKA, ARF, appy, cholecystitis, CVA, Diverticulitis, Homicidal, Suicidal, threat to staff... and all critical care pts) @ -No - Lab Data Result diagrams: 10/17/22 10:11 10/17/22 10:11 Lab Results 10/17/22 10/17/22 10/17/22 Range/Units 10:11 10:11 10:11 WBC 7.4 (3.8-10.6) k/uL RBC 2.82 L (3.80-5.40) m/uL Hgb 10.2 L (11.4-16.0) gm/dL Hct 29.5 L (34.0-46.0) % MCV 104.4 H (80.0-100.0) fL MCH 36.3 H (25.0-35.0) pg MCHC 34.7 (31.0-37.0) g/dL RDW 13.1 (11.5-15.5) % Plt Count 184 (150-450) k/uL MPV 9.0 Neutrophils % 74 % Lymphocytes % 18 % Monocytes % 3 % Eosinophils % 3 % Basophils % 0 % Neutrophils # 5.5 (1.3-7.7) k/uL Lymphocytes # 1.4 (1.0-4.8) k/uL Monocytes # 0.2 (0-1.0) k/uL Eosinophils # 0.2 (0-0.7) k/uL Basophils # 0.0 (0-0.2) k/uL Macrocytosis Slight PT 9.6 (9.0-12.0) sec INR 0.9 (<1.2) APTT 21.3 L (22.0-30.0) sec Sodium 141 (137-145) mmol/L Potassium 6.2 H* (3.5-5.1) mmol/L Chloride 101 (98-107) mmol/L Carbon Dioxide 23 (22-30) mmol/L Anion Gap 17 mmol/L BUN 83 H (7-17) mg/dL Creatinine 12.47 H* (0.52-1.04) mg/dL Est GFR (CKD-EPI)AfAm 3 (>60 ml/min/1.73 sqM) Est GFR (CKD-EPI)NonAf 3 (>60 ml/min/1.73 sqM) Glucose 128 H (74-99) mg/dL Plasma Lactic Acid Charly (0.7-2.0) mmol/L Calcium 7.9 L (8.4-10.2) mg/dL Phosphorus 6.3 H (2.5-4.5) mg/dL Magnesium 2.5 H (1.6-2.3) mg/dL Total Bilirubin 0.7 (0.2-1.3) mg/dL AST 41 H (14-36) U/L ALT 39 H (4-34) U/L Alkaline Phosphatase 47 (38-126) U/L Total Protein 7.4 (6.3-8.2) g/dL Albumin 3.9 (3.5-5.0) g/dL 10/17/22 Range/Units 10:11 WBC (3.8-10.6) k/uL RBC (3.80-5.40) m/uL Hgb (11.4-16.0) gm/dL Hct (34.0-46.0) % MCV (80.0-100.0) fL MCH (25.0-35.0) pg MCHC (31.0-37.0) g/dL RDW (11.5-15.5) % Plt Count (150-450) k/uL MPV Neutrophils % % Lymphocytes % % Monocytes % % Eosinophils % % Basophils % % Neutrophils # (1.3-7.7) k/uL Lymphocytes # (1.0-4.8) k/uL Monocytes # (0-1.0) k/uL Eosinophils # (0-0.7) k/uL Basophils # (0-0.2) k/uL Macrocytosis PT (9.0-12.0) sec INR (<1.2) APTT (22.0-30.0) sec Sodium (137-145) mmol/L Potassium (3.5-5.1) mmol/L Chloride (98-107) mmol/L Carbon Dioxide (22-30) mmol/L Anion Gap mmol/L BUN (7-17) mg/dL Creatinine (0.52-1.04) mg/dL Est GFR (CKD-EPI)AfAm (>60 ml/min/1.73 sqM) Est GFR (CKD-EPI)NonAf (>60 ml/min/1.73 sqM) Glucose (74-99) mg/dL Plasma Lactic Acid Charly 2.4 H* (0.7-2.0) mmol/L Calcium (8.4-10.2) mg/dL Phosphorus (2.5-4.5) mg/dL Magnesium (1.6-2.3) mg/dL Total Bilirubin (0.2-1.3) mg/dL AST (14-36) U/L ALT (4-34) U/L Alkaline Phosphatase (38-126) U/L Total Protein (6.3-8.2) g/dL Albumin (3.5-5.0) g/dL Critical Care Time Critical Care Time: Yes Total Critical Care Time: 32 Disposition Clinical Impression: Occlusion of arteriovenous dialysis graft, End stage renal disease, Hyperkalemia Disposition: ADMITTED IP TO THIS [facility] Condition: Serious Is patient prescribed a controlled substance at d/c from ED?: No Referrals: Candelaria Barrera MD [Primary Care Provider] - 1-2 days Time of Disposition: 11:40
[2022-10-17 10:18] LABS: Basophils % (A) 0 %; Eosinophils # (A) 0.2 k/uL (0-0.7); Eosinophils % (A) 3 %; HCT 29.5 % (34.0-46.0); HGB 10.2 gm/dL (11.4-16.0); Lymphocytes # (A) 1.4 k/uL (1.0-4.8); Lymphocytes % (A) 18 %; MCH 36.3 pg (25.0-35.0); MCHC 34.7 g/dL (31.0-37.0); MCV 104.4 fL (80.0-100.0); Macrocytosis Slight; Monocytes # (A) 0.2 k/uL (0-1.0); Monocytes % (A) 3 %; Neutrophils # (A) 5.5 k/uL (1.3-7.7); Neutrophils % (A) 74 %; Platelet Count 184 k/uL (150-450); RBC 2.82 m/uL (3.80-5.40); RDW 13.1 % (11.5-15.5); WBC 7.4 k/uL (3.8-10.6)
--- NOTE | 2022-10-17 10:25 | XR ---
EXAMINATION TYPE: XR chest 2V DATE OF EXAM: 10/17/2022 10:19 AM COMPARISON: Chest radiographs from 12/16/2021 TECHNIQUE: XR chest 2V Frontal and lateral views of the chest. CLINICAL INDICATION:Female, 67 years old with history of Weakness; FINDINGS: Lungs/Pleura: There is no evidence of pleural effusion, focal consolidation, or pneumothorax. Pulmonary vascularity: Unremarkable. Heart/mediastinum: Cardiomediastinal silhouette is prominent in size. Musculoskeletal: Multiple level degenerative disc disease changes seen throughout the spine. IMPRESSION: No acute cardiopulmonary disease/process. No significant change from prior examination.
[2022-10-17 10:26] LABS: INR 0.9 (<1.2); Prothrombin Time 9.6 sec (9.0-12.0)
[2022-10-17 10:30] LABS: ALT 39 U/L (4-34); African American GFR (CKD) 3 (>60 ml/min/1.73 sqM); Anion Gap 17 mmol/L; Blood Urea Nitrogen 83 mg/dL (7-17); Calcium 7.9 mg/dL (8.4-10.2); Carbon Dioxide 23 mmol/L (22-30); Chloride 101 mmol/L (98-107); Glucose 128 mg/dL (74-99); Non-African American GFR(CKD) 3 (>60 ml/min/1.73 sqM); Sodium 141 mmol/L (137-145); Total Bilirubin 0.7 mg/dL (0.2-1.3)
[2022-10-17 10:36] LABS: AST 41 U/L (14-36); Albumin 3.9 g/dL (3.5-5.0); Alkaline Phosphatase 47 U/L (38-126); Magnesium 2.5 mg/dL (1.6-2.3); Phosphorus 6.3 mg/dL (2.5-4.5); Potassium 6.2 mmol/L (3.5-5.1); Total Protein 7.4 g/dL (6.3-8.2)
[2022-10-17 10:51] LABS: Partial Thromboplastin Time 21.3 sec (22.0-30.0)
[2022-10-17] MEDS ORDERED: INSULIN REGULAR 100 UNIT/ML VIAL (IV) IV ONE (11:35)
[2022-10-17] MEDS ORDERED: DEXTROSE 50% SYRINGE 50 ML IVP ONE (11:35)
[2022-10-17] MEDS ORDERED: SODIUM ZIRCONIUM CYCLOSILICATE 10 GM PACKET PO ONE ×2 (11:35→19:30)
[2022-10-17] MEDS ORDERED: CALCIUM GLUCONATE IN NACL 1 GM in SALINE 1 100ML.BAG IVPB ONE (11:35)
[2022-10-17] MEDS ORDERED: NALOXONE 0.4 MG/ML 1 ML VIAL IV PRN (11:47)
--- NOTE | 2022-10-17 14:48 | P.GSCN ---
History of Present Illness Consult date: 10/17/22 Reason for Consult: Chronic renal failure, hyperkalemia Requesting physician: Anderosn Miramontes History of present illness: This is a pleasant 67-year-old female well-known to vascular surgery with end- stage renal disease requiring hemodialysis. Patient has a left axillary AV graft which is not functioning. Patient states she went Saturday for hemodialysis which worked fine and then yesterday she went back for hemodialysis but it did not work. Patient states she did come to the emergency department yesterday however the wait was too long so she left. She returned back today with concerns for nonfunctioning left AV graft. She does also have a history of previous thrombosed left axillary loop graft status post angioplasty/venoplasty on 07/22/2022. Patient denies any pain to the left upper extremity, no redness, warmth or drainage. She denies any shortness of breath, chest pain, nausea or vomiting. On admission potassium 6.2 with a repeat of 5.0 BUN 83 creatinine 12.4 Review of Systems A 14 point review systems was completed all pertinent positives and negatives as stated in the HPI. 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 DIALYSIS FISTULA rt arm-old, lasik rt eye surgery, right upper ext. left AV graft revision 03-31-20 Past Anesthesia/Blood Transfusion Reactions: Postoperative Nausea & Vomiting (PONV) Past Psychological History: No Psychological Hx Reported Smoking Status: Never smoker Past Alcohol Use History: None Reported Past Drug Use History: None Reported - Past Family History Mother Family Medical History: Cancer Brother(s) Family Medical History: Cancer Medications and Allergies Home Medications Medication Instructions Recorded Confirmed Type Aspirin 325 mg PO DAILY@1600 07/28/19 10/17/22 History Levothyroxine Sodium [Synthroid] 150 mcg PO MOTUWETHFRSA 03/25/20 10/17/22 History carvediloL 25 mg PO DAILY@1600 PRN 08/16/21 10/17/22 History Ergocalciferol [Vitamin D2 (1250 1,250 mcg PO GILLESPIE 12/20/21 10/17/22 History Mcg = 87532 Iu)] Levothyroxine Sodium [Synthroid] 225 mcg PO GILLESPIE 12/20/21 10/17/22 History Insulin Glargine,Hum.rec.anlog 33 units SQ BID 07/21/22 10/17/22 History [Lantus Solostar Pen] Insulin Lispro [humaLOG Kwikpen] 23 unit SQ AC-BID@0900,1200 07/21/22 10/17/22 History Insulin Lispro [humaLOG Kwikpen] 25 unit SQ AC-SUPPER 07/21/22 10/17/22 History Montelukast [Singulair] 10 mg PO HS 07/21/22 10/17/22 History Nephro-Nav 1 cap PO DAILY@1600 07/21/22 10/17/22 History Sevelamer [Renvela] 1,600 mg PO TID-W/MEALS 10/17/22 10/17/22 History Simvastatin [Zocor] 40 mg PO HS 10/17/22 10/17/22 History Allergies Allergy/AdvReac Type Severity Reaction Status Date / Time No Known Allergies Allergy Verified 10/17/22 12:08 Surgical - Exam Vital Signs Temp Pulse Resp BP Pulse Ox 98.1 F 78 18 133/72 95 10/17/22 09:14 10/17/22 09:14 10/17/22 09:14 10/17/22 09:14 10/17/22 09:14 General appearance: The patient is alert, oriented, appears in no acute distress. HET: Head is normocephalic and atraumatic. Pupils are equal and reactive. Neck: Supple. Heart: Regular. Lungs: Equal expansion, normal respiratory effort. Abdomen: Soft, nontender, nondistended. Extremities: Normal skin color and turgor. Left axillary AV graft nonpalpable thrill or audible bruit. No redness, swelling, drainage. Neurological: No focal deficits. Strength and sensation are grossly intact. Results - Labs 10/17/22 10:11 10/17/22 12:02 Abnormal Lab Results - Last 24 Hours (Table) 10/17/22 10/17/22 10/17/22 Range/Units 10:11 10:11 10:11 RBC 2.82 L (3.80-5.40) m/uL Hgb 10.2 L (11.4-16.0) gm/dL Hct 29.5 L (34.0-46.0) % MCV 104.4 H (80.0-100.0) fL MCH 36.3 H (25.0-35.0) pg APTT 21.3 L (22.0-30.0) sec Potassium 6.2 H* (3.5-5.1) mmol/L BUN 83 H (7-17) mg/dL Creatinine 12.47 H* (0.52-1.04) mg/dL Glucose 128 H (74-99) mg/dL Plasma Lactic Acid Charly (0.7-2.0) mmol/L Calcium 7.9 L (8.4-10.2) mg/dL Phosphorus 6.3 H (2.5-4.5) mg/dL Magnesium 2.5 H (1.6-2.3) mg/dL AST 41 H (14-36) U/L ALT 39 H (4-34) U/L 10/17/22 Range/Units 10:11 RBC (3.80-5.40) m/uL Hgb (11.4-16.0) gm/dL Hct (34.0-46.0) % MCV (80.0-100.0) fL MCH (25.0-35.0) pg APTT (22.0-30.0) sec Potassium (3.5-5.1) mmol/L BUN (7-17) mg/dL Creatinine (0.52-1.04) mg/dL Glucose (74-99) mg/dL Plasma Lactic Acid Charly 2.4 H* (0.7-2.0) mmol/L Calcium (8.4-10.2) mg/dL Phosphorus (2.5-4.5) mg/dL Magnesium (1.6-2.3) mg/dL AST (14-36) U/L ALT (4-34) U/L Diabetes panel 10/17/22 10/17/22 Range/Units 10:11 12:02 Sodium 141 (137-145) mmol/L Potassium 6.2 H* 5.0 (3.5-5.1) mmol/L Chloride 101 (98-107) mmol/L Carbon Dioxide 23 (22-30) mmol/L BUN 83 H (7-17) mg/dL Creatinine 12.47 H* (0.52-1.04) mg/dL Glucose 128 H (74-99) mg/dL Calcium 7.9 L (8.4-10.2) mg/dL AST 41 H (14-36) U/L ALT 39 H (4-34) U/L Alkaline Phosphatase 47 (38-126) U/L Total Protein 7.4 (6.3-8.2) g/dL Albumin 3.9 (3.5-5.0) g/dL Calcium panel 10/17/22 Range/Units 10:11 Calcium 7.9 L (8.4-10.2) mg/dL Phosphorus 6.3 H (2.5-4.5) mg/dL Albumin 3.9 (3.5-5.0) g/dL Pituitary panel 10/17/22 10/17/22 Range/Units 10:11 12:02 Sodium 141 (137-145) mmol/L Potassium 6.2 H* 5.0 (3.5-5.1) mmol/L Chloride 101 (98-107) mmol/L Carbon Dioxide 23 (22-30) mmol/L BUN 83 H (7-17) mg/dL Creatinine 12.47 H* (0.52-1.04) mg/dL Glucose 128 H (74-99) mg/dL Calcium 7.9 L (8.4-10.2) mg/dL Adrenal panel 10/17/22 10/17/22 Range/Units 10:11 12:02 Sodium 141 (137-145) mmol/L Potassium 6.2 H* 5.0 (3.5-5.1) mmol/L Chloride 101 (98-107) mmol/L Carbon Dioxide 23 (22-30) mmol/L BUN 83 H (7-17) mg/dL Creatinine 12.47 H* (0.52-1.04) mg/dL Glucose 128 H (74-99) mg/dL Calcium 7.9 L (8.4-10.2) mg/dL Total Bilirubin 0.7 (0.2-1.3) mg/dL AST 41 H (14-36) U/L ALT 39 H (4-34) U/L Alkaline Phosphatase 47 (38-126) U/L Total Protein 7.4 (6.3-8.2) g/dL Albumin 3.9 (3.5-5.0) g/dL Assessment and Plan Assessment: 1. Malfunctioning left upper extremity AV graft 2. End-stage renal disease requiring hemodialysis 3. Hyperkalemia 4. Diabetes mellitus 5. Obesity Plan: 1. Nothing by mouth after midnight 2. Plan for left upper extremity thrombectomy of AV graft possible tunneled catheter tomorrow 3. Hemodialysis per recommendations from nephrology 4. Rest of medical management per primary medical team Thank you for this consultation, we will continue to follow. The impression and plan of care has been dictated as directed. Dr. Chen I performed a history and examination of this patient, discussed the same with the dictator. I agree with the dictator's note ,documented as a scribe. Any additional findings or plans will be noted.
[2022-10-17 17:22] LABS: Glucose,Whole Blood 153 mg/dL (70-110)
[2022-10-17] MEDS ORDERED: SODIUM BICARB 8.4% 50 ML SYR (1 MEQ/ML) IV STA (18:20)
[2022-10-17] MEDS ORDERED: DEXTROSE 50% SYRINGE 50 ML IVP PRN ×2 (18:22)
[2022-10-17] MEDS: LEVOTHYROXINE 75 MCG TAB PO SCH (18:23)
[2022-10-17 20:31] LABS: Glucose,Whole Blood 192 mg/dL (70-110)
[2022-10-17] MEDS: FAMOTIDINE 20 MG/2 ML VIAL IV SCH (21:44)
[2022-10-17] MEDS: HEPARIN SODIUM,PORCINE/PF 5,000 UNIT/0.5 ML SYRINGE SQ SCH (21:45)
[2022-10-17] MEDS: INSULIN DETEMIR (LEVEMIR) 100 UNIT/ML SYR SQ SCH (21:45)
[2022-10-17] MEDS: ATORVASTATIN 20 MG TAB PO SCH (21:45)
[2022-10-17] MEDS: MONTELUKAST 10 MG TAB PO SCH (21:45)
[2022-10-17] MEDS: INSULIN ASPART (NovoLOG) 100 UNIT/ML VIAL SQ SCH (21:45)
--- NOTE | 2022-10-18 01:52 | P.HPIM ---
History of Present Illness This is a pleasant 67 years old female with multiple medical problems including end-stage renal disease on hemodialysis. patient was sent due to blood clot in left arm fistula, because of this patient missed her hemodialysis yesterday, she usually goes to dialysis every Saturday and Saturday. Patient states that she has a graft in the left upper arm which looks with no obvious thrill on palpation. Because of this she couldn't get hemodialysis as an outpatient. Patient herself denies any other specific complaints. No chest pain no dyspnea. No history of smoking strokes. She denies any specific symptoms, no chest pain dyspnea, no abdominal pain. No change in urine or bowel habits. No fever. Patient is hemodynamically stable Labs showing mild anemia with 10.2 hemoglobin, potassium 6.2 came back to 5.0. Creatinine 12.4. Lactic acid 2.4. Liver enzymes is a mildly elevated. Chest x-ray: No acute process Review of Systems Review of systems CONSTITUTIONAL: No fever, no malaise, no fatigue. HEENT: No recent visual problems or hearing problems. Denied any sore throat. CARDIOVASCULAR: No orthopnea, PND, no palpitations, no syncope. PULMONARY: No shortness of breath, no cough, no hemoptysis. GASTROINTESTINAL: No diarrhea, no nausea, no vomiting, no abdominal pain. Normoactive bowel sounds. NEUROLOGICAL: No headaches, no weakness, no numbness. HEMATOLOGICAL: Denies any bleeding or petechiae. GENITOURINARY: Denies any burning micturition, frequency, or urgency. MUSCULOSKELETAL/RHEUMATOLOGICAL: Denies any joint pain, swelling, or any muscle pain. ENDOCRINE: Denies any polyuria or polydipsia. 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 DIALYSIS FISTULA rt arm-old, lasik rt eye surgery, right upper ext. left AV graft revision 03-31-20 Past Anesthesia/Blood Transfusion Reactions: Postoperative Nausea & Vomiting (PONV) Past Psychological History: No Psychological Hx Reported Smoking Status: Never smoker Past Alcohol Use History: None Reported Past Drug Use History: None Reported - Past Family History Mother Family Medical History: Cancer Brother(s) Family Medical History: Cancer Medications and Allergies Home Medications Medication Instructions Recorded Confirmed Type Aspirin 325 mg PO DAILY@1600 07/28/19 10/17/22 History Levothyroxine Sodium [Synthroid] 150 mcg PO MOTUWETHFRSA 03/25/20 10/17/22 History carvediloL 25 mg PO DAILY@1600 PRN 08/16/21 10/17/22 History Ergocalciferol [Vitamin D2 (1250 1,250 mcg PO GILLESPIE 12/20/21 10/17/22 History Mcg = [id number] Iu)] Levothyroxine Sodium [Synthroid] 225 mcg PO GILLESPIE 12/20/21 10/17/22 History Insulin Glargine,Hum.rec.anlog 33 units SQ BID 07/21/22 10/17/22 History [Lantus Solostar Pen] Insulin Lispro [humaLOG Kwikpen] 23 unit SQ AC-BID@0900,1200 07/21/22 10/17/22 History Insulin Lispro [humaLOG Kwikpen] 25 unit SQ AC-SUPPER 07/21/22 10/17/22 History Montelukast [Singulair] 10 mg PO HS 07/21/22 10/17/22 History Nephro-Nav 1 cap PO DAILY@1600 07/21/22 10/17/22 History Sevelamer [Renvela] 1,600 mg PO TID-W/MEALS 10/17/22 10/17/22 History Simvastatin [Zocor] 40 mg PO HS 10/17/22 10/17/22 History Allergies Allergy/AdvReac Type Severity Reaction Status Date / Time No Known Allergies Allergy Verified 10/17/22 12:08 Physical Exam Vitals: Vital Signs Temp Pulse Resp BP Pulse Ox 10/17/22 09:14 98.1 F 78 18 133/72 95 Intake and Output 10/16/22 10/17/22 10/17/22 22:59 06:59 14:59 Other: Weight 149 kg GENERAL: The patient is alert and oriented x3, not in any acute distress. Well developed, well nourished. HEENT: Pupils are round and equally reacting to light. EOMI. No scleral icterus. No conjunctival pallor. Normocephalic, atraumatic. No pharyngeal erythema. No thyromegaly. CARDIOVASCULAR: S1 and S2 present. No murmurs, rubs, or gallops. PULMONARY: Chest is clear to auscultation, no wheezing , no crackles. ABDOMEN: Soft, nontender, nondistended, normoactive bowel sounds. No palpable organomegaly. MUSCULOSKELETAL: No joint swelling or deformity. -EXTREMITIES: No cyanosis, clubbing, or pedal edema. Left upper arm graft with no thrill NEUROLOGICAL: Gross neurological examination did not reveal any focal deficits. SKIN: No rashes. no petechiae. Results CBC & Chem 7: 10/17/22 10:11 10/17/22 15:43 Labs: Abnormal Lab Results - Last 24 Hours (Table) 10/17/22 10/17/22 10/17/22 Range/Units 10:11 10:11 10:11 RBC 2.82 L (3.80-5.40) m/uL Hgb 10.2 L (11.4-16.0) gm/dL Hct 29.5 L (34.0-46.0) % MCV 104.4 H (80.0-100.0) fL MCH 36.3 H (25.0-35.0) pg APTT 21.3 L (22.0-30.0) sec Potassium 6.2 H* (3.5-5.1) mmol/L BUN 83 H (7-17) mg/dL Creatinine 12.47 H* (0.52-1.04) mg/dL Glucose 128 H (74-99) mg/dL Plasma Lactic Acid Charly (0.7-2.0) mmol/L Calcium 7.9 L (8.4-10.2) mg/dL Phosphorus 6.3 H (2.5-4.5) mg/dL Magnesium 2.5 H (1.6-2.3) mg/dL AST 41 H (14-36) U/L ALT 39 H (4-34) U/L 10/17/22 Range/Units 10:11 RBC (3.80-5.40) m/uL Hgb (11.4-16.0) gm/dL Hct (34.0-46.0) % MCV (80.0-100.0) fL MCH (25.0-35.0) pg APTT (22.0-30.0) sec Potassium (3.5-5.1) mmol/L BUN (7-17) mg/dL Creatinine (0.52-1.04) mg/dL Glucose (74-99) mg/dL Plasma Lactic Acid Charly 2.4 H* (0.7-2.0) mmol/L Calcium (8.4-10.2) mg/dL Phosphorus (2.5-4.5) mg/dL Magnesium (1.6-2.3) mg/dL AST (14-36) U/L ALT (4-34) U/L Assessment and Plan Assessment: Clotted hemodialysis catheter Hyperkalemia, mild improved End-stage renal disease disease on hemodialysis, Saturday and Saturday. Hypothyroidism Diabetes mellitus History of GERD Hypertension History of coronary artery disease History of sleep apnea Plan: Monitor potassium level Vascular surgery consult for vascular access Nephrology consult Labs and medication were reviewed.. Continue same treatment. Continue with symptomatic treatment. Resume home medication. Monitor labs and vitals. DVT and GI prophylaxis. Further recommendations as per clinical course of the patient DVT prophylaxis: Subcutaneous heparin GI Prophylaxis: Pepcid
[2022-10-18 06:18] LABS: Glucose,Whole Blood 65 mg/dL (70-110)
[2022-10-18] MEDS: LEVOTHYROXINE 75 MCG TAB PO SCH (06:26)
[2022-10-18] MEDS: INSULIN ASPART (NovoLOG) 100 UNIT/ML VIAL SQ SCH ×4 (06:29→20:51)
[2022-10-18 06:46] LABS: Glucose,Whole Blood 110 mg/dL (70-110)
[2022-10-18] MEDS: INSULIN DETEMIR (LEVEMIR) 100 UNIT/ML SYR SQ SCH ×2 (07:22→20:48)
[2022-10-18 08:06] LABS: African American GFR (CKD) 3 (>60 ml/min/1.73 sqM); Anion Gap 17 mmol/L; Blood Urea Nitrogen 91 mg/dL (7-17); Calcium 8.3 mg/dL (8.4-10.2); Carbon Dioxide 26 mmol/L (22-30); Chloride 99 mmol/L (98-107); Glucose 90 mg/dL (74-99); Magnesium 2.6 mg/dL (1.6-2.3); Non-African American GFR(CKD) 2 (>60 ml/min/1.73 sqM); Phosphorus 6.9 mg/dL (2.5-4.5); Potassium 4.9 mmol/L (3.5-5.1); Sodium 142 mmol/L (137-145)
[2022-10-18] MEDS ORDERED: SODIUM CHLORIDE 0.9% 500 ML 500 ML IV ONE (09:02)
[2022-10-18] MEDS ORDERED: ALTEPLASE 10 MG in SODIUM CHLORIDE 0.9% 50 ML MISCELLANE ONE (09:17)
[2022-10-18] MEDS ORDERED: fentaNYL (PF) 50 MCG/ML 2 ML AMP ONE (09:18)
[2022-10-18] MEDS: MIDAZOLAM 2 MG/2 ML VIAL IVP ONE ×3 (09:22→10:58)
[2022-10-18] MEDS: fentaNYL (PF) 50 MCG/ML 2 ML AMP IVP ONE ×5 (09:24→10:58)
[2022-10-18] MEDS ORDERED: fentaNYL (PF) 50 MCG/ML 2 ML AMP IVP ONE (09:24)
[2022-10-18] MEDS ORDERED: LIDOCAINE 1% INJ 10MG/ML (5 ML VIAL-PF) SQ ONE (09:28)
[2022-10-18] MEDS ORDERED: IOPAMIDOL-250 100ML BTL IVP ONE ×2 (10:46)
--- NOTE | 2022-10-18 11:25 | IR ---
EXAMINATION TYPE: IR fistula/abscess/sinus tract DATE OF EXAM: 10/18/2022 COMPARISON: NONE HISTORY: Fluoroscopy time. Fluoroscopy was provided to the referring clinician.
[2022-10-18] MEDS: HEPARIN SODIUM,PORCINE/PF 5,000 UNIT/0.5 ML SYRINGE SQ SCH (11:54)
[2022-10-18] MEDS: FAMOTIDINE 20 MG/2 ML VIAL IV SCH ×2 (11:55→20:49)
[2022-10-18] MEDS ORDERED: NON FORMULARY DRUG (Insulin Lispro [Humalog Kwikpen] 100 UNIT/ML Insuln.Pen) SQ SCH ×2 (12:00→17:30)
[2022-10-18] MEDS ORDERED: ONDANSETRON 4 MG/2 ML VIAL IVP PRN (12:05)
--- NOTE | 2022-10-18 12:09 | P.OP ---
Date of Procedure: 10/18/22 Description of Procedure: Preoperative diagnosis: Thrombosed left axillary loop graft Postoperative diagnosis: Same stenosis at the arterial inflow, the venous outflow and access portions of the graft Procedure: Ultrasound-guided AV graft access 2 Fistulogram Pharmacal mechanical thrombectomy with 6-Afghan AngioJet Percutaneous transluminal balloon angioplasty of the inflow 5 x 60, 6 x 60 drug- coated balloon Percutaneous transluminal balloon venoplasty of the outflow and in graft stenosis, 8 x 60 Moderate conscious sedation 97 minutes, personal monitoring certified RN administration with hemodynamic monitoring Surgeon: Tracy Chen D.O. EBL: Less than 10 mL IV fluids: See records Urine output: Not measured Drains: None Complications: None immediately apparent Condition: Stable to recovery Operative indication and findings: Patient is a 67-year-old female with a loop axillary graft from left upper arm who was unable to get dialysis on Saturday due to thrombosis of the graft. Her last dialysis was Saturday. She states her were no issues. She presents for fistulogram and intervention and possible catheter. She seemingly understands the plan is willing to proceed. Procedure in detail: Patient was taken to the special suite and placed in supine position. Left upper extremity is prepped and draped in usual sterile fashion. A preprocedure timeout was performed, all parties were in agreement. Using ultrasound, initially in the outflow direction, the graft was accessed. Perman ent images stored. Catheters and wires were utilized passed into the central system a central venogram was performed showing no evidence of obvious stenosis area catheter was then drawn back until the level of the outflow anastomosis which did appear to be thrombosed. Wire was then replaced and a 6-Afghan AngioJet was passed with TPA pulsation for pharmacal thrombolysis. Dwelling time was allowed and during this time, access was obtained towards the inflow direction. Again using ultrasound the graft was cannulated and a 6-Afghan sheath was placed. Catheters and wires were placed into the axillary artery and images performed showing widely patent arterial vasculature. That point the arterial inflow was treated with TPA pulsation for pharmacal thrombolysis. While this was dwelling, the suction thrombectomy portion was performed of the outflow. Following this outflow imaging was performed. There was evidence of significant stenosis in graft the access site as well as significant stenosis at the outflow anastomosis. An 8 x 60 balloon was utilized at both of these sites with significant improvement. Attention was then turned towards the inflow. Suction thrombectomy was performed. An angiogram via the axillary artery was performed showing continuous flow through the entirety of the graft with moderate stenosis of the arterial anastomosis and proximal graft. 5 x 40 ballo on was utilized to angioplasty the areas. Repeat images performed, still sluggish flow however there was a palpable pulse at the graft itself. There did appear to be further thrombus therefore repeat suction thrombectomy was performed of the outflow. Repeat images performed and there was still some degree of stenosis at the anastomosis therefore 6 x 60 drug-coated balloon was performed with the inflow. There appeared to be adequate pulse to the graft with flow throughout. Final imaging was performed showing continued improvement of the outflow anastomosis. At that point catheters and wires were removed. The sheath was removed and [id number] sutures were placed at each site. Dressings were placed the patient was allowed awaken from her sedation and transferred to recovery in stable condition having tolerated her procedure well.
[2022-10-18 12:43] LABS: Glucose,Whole Blood 123 mg/dL (70-110)
[2022-10-18] MEDS ORDERED: IV FLUID CONTINUATION 500 ML IV ONE (14:25)
[2022-10-18] MEDS ORDERED: MIDAZOLAM 2 MG/2 ML VIAL IVP ONE (14:27)
[2022-10-18] MEDS ORDERED: LIDOCAINE 1% INJ 10MG/ML (20 ML MDV) SQ ONE (14:27)
--- NOTE | 2022-10-18 14:31 | P.NPCON ---
History of Present Illness - Reason for Consult end stage renal disease - History of Present Illness Patient is a 67-year-old female who was admitted to the hospital due to thrombosed AV graft. Patient has underlying end-stage renal disease and is maintained on hemodialysis on a Saturday schedule. Patient's last treatment was 5 days ago. No complaints of shortness of breath Potassium was elevated at 6.2 and has decreased to 4.9 today. Status post thrombectomy of left arm AV graft today. Patient has just returned from [place]. No significant complaints. Review of Systems As per HPI. 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 DIALYSIS FISTULA rt arm-old, lasik rt eye surgery, right upper ext. left AV graft revision 03-31-20 Past Anesthesia/Blood Transfusion Reactions: Postoperative Nausea & Vomiting (PONV) Past Psychological History: No Psychological Hx Reported Smoking Status: Never smoker Past Alcohol Use History: None Reported Past Drug Use History: None Reported - Past Family History Mother Family Medical History: Cancer Brother(s) Family Medical History: Cancer Medications and Allergies Home Medications Medication Instructions Recorded Confirmed Type Aspirin 325 mg PO DAILY@1600 07/28/19 10/17/22 History Levothyroxine Sodium [Synthroid] 150 mcg PO MOTUWETHFRSA 03/25/20 10/17/22 History carvediloL 25 mg PO DAILY@1600 PRN 08/16/21 10/17/22 History Ergocalciferol [Vitamin D2 (1250 1,250 mcg PO GILLESPIE 12/20/21 10/17/22 History Mcg = [id number] Iu)] Levothyroxine Sodium [Synthroid] 225 mcg PO GILLESPIE 12/20/21 10/17/22 History Insulin Glargine,Hum.rec.anlog 33 units SQ BID 07/21/22 10/17/22 History [Lantus Solostar Pen] Insulin Lispro [humaLOG Kwikpen] 23 unit SQ AC-BID@0900,1200 07/21/22 10/17/22 History Insulin Lispro [humaLOG Kwikpen] 25 unit SQ AC-SUPPER 07/21/22 10/17/22 History Montelukast [Singulair] 10 mg PO HS 07/21/22 10/17/22 History Nephro-Nav 1 cap PO DAILY@1600 07/21/22 10/17/22 History Sevelamer [Renvela] 1,600 mg PO TID-W/MEALS 10/17/22 10/17/22 History Simvastatin [Zocor] 40 mg PO HS 10/17/22 10/17/22 History Allergies Allergy/AdvReac Type Severity Reaction Status Date / Time No Known Allergies Allergy Verified 10/17/22 12:08 Physical Exam Vitals: Vital Signs Temp Pulse Pulse Pulse Resp BP BP 10/18/22 12:12 55 L 148/76 10/18/22 11:58 57 L 123/68 10/18/22 11:44 53 L 124/64 10/18/22 11:28 58 L 127/67 10/18/22 11:13 97.4 F L 58 L 147/56 10/18/22 08:45 10/18/22 07:00 97.7 F 60 17 134/73 10/18/22 02:25 98.4 F 69 15 116/68 10/17/22 20:00 65 16 10/17/22 19:48 98.3 F 65 15 112/65 10/17/22 18:56 98.3 F 65 16 113/71 10/17/22 16:24 62 15 102/40 Pulse Ox 10/18/22 12:12 10/18/22 11:58 10/18/22 11:44 10/18/22 11:28 10/18/22 11:13 93 L 10/18/22 08:45 98 10/18/22 07:00 96 10/18/22 02:25 97 10/17/22 20:00 10/17/22 19:48 96 10/17/22 18:56 96 10/17/22 16:24 Intake and Output 10/17/22 10/18/22 10/18/22 22:59 06:59 14:59 Intake Total 250 300 Output Total 125 Balance 250 175 Intake: IV 300 Oral 250 Output: Estimated Blood Loss 125 Other: # Voids 0 Patient is awake, comfortable, no acute distress Examination of the heart S1 and S2 Examination of the lungs bilateral breath sounds are heard Abdomen is soft nontender Examination of the lower extremities shows 1+ edema bilaterally 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 End-stage renal disease on hemodialysis on a Saturday schedule 2. Thrombosed left arm AV graft status post thrombectomy today 3. Hyperkalemia with end-stage renal disease, improved with IV treatment 4. CK D mineral bone disorder Plan: Hemodialysis today. Patient can be discharged postdialysis if she remains stable.
--- NOTE | 2022-10-18 15:06 | IR ---
EXAMINATION TYPE: IR cvc insert central tunneled DATE OF EXAM: 10/18/2022 COMPARISON: NONE HISTORY: Fluoroscopy time. Fluoroscopy was provided to the referring clinician.
--- NOTE | 2022-10-18 15:14 | P.OP ---
Date of Procedure: 10/18/22 Description of Procedure: DATE OF PROCEDURE: 10/18/2022 PREOPERATIVE DIAGNOSIS: Need for dialysis PROCEDURE: 1. Ultrasound-guided right internal jugular vein access. 2. Placement of a 23 cm tunneled dialysis catheter with fluoroscopic assistance. PROCEDURE: The patient was brought to the Process Project Engineer placed in supine position. The bilateral necks were prepped and draped in usual sterile fashion. A preprocedure timeout was performed, all parties were in agreement. Using ultrasound the right internal jugular was identified. The site overlying the vein was anesthetized with 1% lidocaine plain and an access needle was used to gain access to the internal jugular vein with return of dark venous, nonpulsatile blood. Seldinger technique was used and a micro-access sheath was placed. Attention was then turned towards the tunnel. The chest wall was anesthetized with 1% lidocaine plain. A small andrew and the skin was made and the previously flushed catheter was tunneled through the anticipated location. Using Seldinger technique and fluoroscopic assistance, the 35 Glidewire was placed and the tract was serially dilated. Dilation was mildly difficult due to scar tissue. The final tear-away sheath was left in place. The inner cannula and wire were removed. The catheter was placed in the tear-away sheath was removed in standard fashion. The catheter showed good positioning was final resting place in the cavoatrial junction. The catheter aspirated and flushed freely. The incision at the neck was reapproximated with interrupted sutures of 4-0 Vicryl. The catheter was sutured in place with 3-0 nylon. Dressings were placed. The patient was allowed to awaken from anesthesia and transferred to recovery in stable condition having tolerated the procedure well. A post procedure chest x-ray is pending
--- NOTE | 2022-10-18 15:38 | P.PN ---
Subjective Progress Note Date: 10/18/22 67 years old female with multiple medical problems including end-stage renal disease on hemodialysis. patient was sent due to blood clot in left arm fistula, because of this patient missed her hemodialysis yesterday, she usually goes to dialysis every Saturday and Saturday. Patient states that she has a graft in the left upper arm which looks with no obvious thrill on palpation. Because of this she couldn't get hemodialysis as an outpatient. Labs showing mild anemia with 10.2 hemoglobin, potassium 6.2 came back to 5.0. Creatinine 12.4. Lactic acid 2.4. Liver enzymes is a mildly elevated. Chest x-ray: No acute process Status post tunneled hemodialysis catheter placement Seen by nephrology, and surgery Objective - Vital Signs Vital signs: Vital Signs Temp 98.1 F 10/18/22 14:35 Pulse 65 10/18/22 14:35 Resp 17 10/18/22 14:35 BP 131/63 10/18/22 14:35 Pulse Ox 97 10/18/22 14:35 FiO2 Intake & Output 10/17/22 10/18/22 10/18/22 18:59 06:59 18:59 Intake Total 250 550 Output Total 125 Balance 250 425 Weight 149 kg Intake: IV 350 Oral 250 200 Output: Estimated Blood Loss 125 Other: # Voids 0 1 - Exam PHYSICAL EXAMINATION: GENERAL: The patient is alert and oriented x3, obese, tunneled hemodialysis catheter right anterior chest wall HEENT: Pupils are round and equally reacting to light. EOMI. No scleral icterus. No conjunctival pallor. Normocephalic, atraumatic. No pharyngeal erythema. No thyromegaly. CARDIOVASCULAR: S1 and S2 present. No murmurs, rubs, or gallops. Lower extremity edema PULMONARY: Chest is clear to auscultation, no wheezing or crackles. ABDOMEN: Soft, nontender, nondistended, normoactive bowel sounds. No palpable organomegaly. MUSCULOSKELETAL: No joint swelling or deformity. EXTREMITIES: No cyanosis, clubbing, or pedal edema. NEUROLOGICAL: Gross neurological examination did not reveal any focal deficits. SKIN: No rashes. - Labs CBC & Chem 7: 10/17/22 10:11 10/18/22 07:34 Labs: Abnormal Lab Results - Last 24 Hours (Table) 10/17/22 10/17/2210/17/23 Range/Units 15:43 17:20 20:29 Potassium 5.9 H (3.5-5.1) mmol/L BUN (7-17) mg/dL Creatinine (0.52-1.04) mg/dL POC Glucose (mg/dL) 153 H 192 H (70-110) mg/dL Calcium (8.4-10.2) mg/dL Phosphorus (2.5-4.5) mg/dL Magnesium (1.6-2.3) mg/dL 10/18/22 10/18/22 10/18/22 Range/Units 06:16 07:34 12:41 Potassium (3.5-5.1) mmol/L BUN 91 H (7-17) mg/dL Creatinine 13.66 H* (0.52-1.04) mg/dL POC Glucose (mg/dL) 65 L 123 H (70-110) mg/dL Calcium 8.3 L (8.4-10.2) mg/dL Phosphorus 6.9 H (2.5-4.5) mg/dL Magnesium 2.6 H (1.6-2.3) mg/dL Assessment and Plan Assessment: Clotted hemodialysis catheter Hyperkalemia, mild improved End-stage renal disease disease on hemodialysis, Saturday and Saturday. Hypothyroidism Diabetes mellitus History of GERD Hypertension History of coronary artery disease History of sleep apnea * Consult obtained from surgery and nephrology * Status post tunneled hemodialysis catheter placement, patient to receive dialysis A/3 * In regards to diabetes mellitus continue correctional insulin and Lantus * In regard to hypothyroidism continue Synthroid * Hemodialysis fistula left arm not working despite intervention
--- NOTE | 2022-10-18 15:41 | XR ---
EXAMINATION TYPE: XR chest 1V portable DATE OF EXAM: 10/18/2022 3:33 PM COMPARISON: Chest radiographs from 10/17/2022 TECHNIQUE: XR chest 1V portable Portable AP radiograph of the chest. CLINICAL INDICATION:Female, 67 years old with history of rule out right sided pneumothorax; FINDINGS: Lungs/Pleura: There is no evidence of pleural effusion, focal consolidation, or pneumothorax. Pulmonary vascularity: Mild pulmonary vascular congestion. Heart/mediastinum: Cardiomediastinal silhouette is enlarged and stable. Musculoskeletal: No acute osseous pathology. Other findings: None Lines/Tubes: Interval placement of right IJ catheter distal tip in the right atrium. IMPRESSION: 1. Interval placement of right IJ catheter distal tip in the right atrium. No pneumothorax. 2. Mild pulmonary vascular congestion.
[2022-10-18 17:39] LABS: Glucose,Whole Blood 200 mg/dL (70-110)
[2022-10-18] MEDS: carvediloL 12.5 MG TAB PO SCH (18:20)
[2022-10-18] MEDS: SEVELAMER 800 MG TAB PO SCH ×3 (19:32→19:34)
[2022-10-18 20:19] LABS: Glucose,Whole Blood 200 mg/dL (70-110)
[2022-10-18] MEDS: HEPARIN SODIUM,PORCINE 5,000 UNIT/ML 1 ML VIAL SQ SCH (20:50)
[2022-10-18] MEDS: ATORVASTATIN 20 MG TAB PO SCH (20:50)
[2022-10-18] MEDS: MONTELUKAST 10 MG TAB PO SCH (20:50)
[2022-10-18] MEDS ORDERED: NON FORMULARY DRUG (Insulin Glargine,Hum.Rec.Anlog [Lantus Solostar Pen] 100 UNIT/ML Insul SQ SCH (21:00)
[2022-10-19 06:16] LABS: Glucose,Whole Blood 213 mg/dL (70-110)
[2022-10-19] MEDS: INSULIN DETEMIR (LEVEMIR) 100 UNIT/ML SYR SQ SCH (06:22)
[2022-10-19] MEDS: LEVOTHYROXINE 75 MCG TAB PO SCH (06:22)
[2022-10-19] MEDS: INSULIN ASPART (NovoLOG) 100 UNIT/ML VIAL SQ SCH ×3 (06:24→17:38)
[2022-10-19] MEDS: FAMOTIDINE 20 MG/2 ML VIAL IV SCH (08:19)
[2022-10-19] MEDS: SEVELAMER 800 MG TAB PO SCH ×3 (08:19→17:38)
[2022-10-19] MEDS: HEPARIN SODIUM,PORCINE 5,000 UNIT/ML 1 ML VIAL SQ SCH (08:19)
--- NOTE | 2022-10-19 10:20 | P.PN ---
Subjective Progress Note Date: 10/19/22 Principal diagnosis: Malfunctioning AV graft Patient seen and examined today as a follow-up. Yesterday she initially underwent fistulogram with chemical mechanical thrombectomy and balloon angioplasty of left axillary loop graft. Later in the day they try to access for hemodialysis however there was no palpable thrill or audible bruit. Patient then underwent a right IJ tunneled catheter placement. Patient underwent hemodialysis from tunneled catheter yesterday evening with about 2-1/2 L removed without any difficulty. Plan is for discharge home today with outpatient d ialysis tomorrow as scheduled. Patient denies any pain in her left upper extremity, no redness, swelling, or drainage. She denies any shortness of breath or chest pain. Objective - Vital Signs Vital signs: Vital Signs Temp 97.9 F 10/19/22 07:00 Pulse 101 H 10/19/22 07:00 Resp 16 10/19/22 07:00 BP 106/66 10/19/22 07:00 Pulse Ox 97 10/19/22 07:00 FiO2 Intake & Output 10/18/22 10/19/22 10/19/22 18:59 06:59 18:59 Intake Total 550 650 Output Total 125 2900 Balance 425 -2250 Intake: IV 350 Oral 200 150 Hemodialysis 500 Output: Hemodialysis 2900 Estimated Blood Loss 125 Other: # Voids 1 1 - Exam General appearance: The patient is alert, oriented, appears in no acute distress. Morbidly obese. HET: Head is normocephalic and atraumatic. Pupils are equal and reactive. Neck: Supple. Chest wall: right IJ tunneled catheter in place with dressing clean dry and intact. Heart: Regular. Lungs: Equal expansion, normal respiratory effort. Abdomen: Soft, nondistended. Extremities: Normal skin color and turgor. Palpable radial pulses. Left upper extremity loop graft without palpable thrill or bruit. No redness or swelling. Neurological: No focal deficits. Strength and sensation are grossly intact. - Labs CBC & Chem 7: 10/17/22 10:11 10/18/22 07:34 Labs: Abnormal Lab Results - Last 24 Hours (Table) 10/18/22 10/18/22 10/18/22 Range/Units 12:41 17:39 20:17 POC Glucose (mg/dL) 123 H 200 H 200 H (70-110) mg/dL 10/19/22 Range/Units 06:13 POC Glucose (mg/dL) 213 H (70-110) mg/dL Assessment and Plan Assessment: 1. Thrombosed left axillary loop graft status post fistulogram, chemical mechanical thrombectomy, balloon angioplasty with continued thrombosis 2. End-stage renal disease requiring hemodialysis status post tunneled catheter placement 3. Hyperkalemia 4. Diabetes mellitus 5. Obesity Plan: 1. Renal diet 2. Hemodialysis per recommendations from nephrology 3. Patient cleared from vascular surgery for discharge. Follow-up in office in 2 weeks. Thank you for this consultation, we sign off at this time. The impression and plan of care has been dictated as directed. Dr. Mcqueen I performed a history and examination of this patient, discussed the same with the dictator. I agree with the dictator's note ,documented as a scribe. Any additional findings or plans will be noted.
[2022-10-19 12:02] LABS: Glucose,Whole Blood 273 mg/dL (70-110)
--- NOTE | 2022-10-19 12:02 | P.PN ---
Subjective Patient is seen for follow-up for end-stage renal disease. Left arm AV graft thrombosed again and therefore right IJ permacath was placed. Patient did have hemodialysis yesterday. She will be dialyzed again today and patient will be discharged posttreatment. No significant complaints. Objective - Vital Signs Vital signs: Vital Signs Temp 97.9 F 10/19/22 07:00 Pulse 101 H 10/19/22 07:00 Resp 16 10/19/22 07:00 BP 106/66 10/19/22 07:00 Pulse Ox 97 10/19/22 07:00 FiO2 Intake & Output 10/18/22 10/19/22 10/19/22 18:59 06:59 18:59 Intake Total 550 650 Output Total 125 2900 Balance 425 -2250 Intake: IV 350 Oral 200 150 Hemodialysis 500 Output: Hemodialysis 2900 Estimated Blood Loss 125 Other: # Voids 1 1 - Exam Patient is awake, comfortable, no acute distress Examination of the heart S1 and S2 Examination of the lungs bilateral breath sounds are heard Abdomen is soft nontender Examination of the lower extremities shows 1+ edema bilaterally [employer] exam grossly intact - Labs CBC & Chem 7: 10/17/22 10:11 10/18/22 07:34 Labs: Abnormal Lab Results - Last 24 Hours (Table) 10/18/22 10/18/22 10/18/22 Range/Units 12:41 17:39 20:17 POC Glucose (mg/dL) 123 H 200 H 200 H (70-110) mg/dL 10/19/22 Range/Units 06:13 POC Glucose (mg/dL) 213 H (70-110) mg/dL Assessment and Plan Assessment: 1. End-stage renal disease on hemodialysis on a Saturday schedule 2. Thrombosed left arm AV graft status post thrombectomy with recurrent thrombosis and subsequently right IJ permacath has been placed 3. Hyperkalemia with end-stage renal disease, improved with IV treatment 4. CK D mineral bone disorder Plan: Repeat hemodialysis today for 2 and half hours. Patient can be discharged post treatment and follow-up as outpatient for hemodialysis in a.m. Follow-up with vascular surgery as outpatient.
--- NOTE | 2022-10-19 14:48 | P.DS ---
Providers Date of admission: 10/17/22 11:49 Expected date of discharge: 10/19/22 Attending physician: Curtis Jacques MD Consults: 10/17/22 11:47 Consult Physician Urgent Consulting Provider: Prabhjot Mcqueen Consult Reason/Comments: crf, hyperkalemia Do you want consulting provider notified?: Yes Consult Physician Urgent Consulting Provider: Mariah Melendez Consult Reason/Comments: Hyperkalemia, crf Do you want consulting provider notified?: Yes Primary care physician: [facility] Course: * 67 years old female with multiple medical problems including end-stage renal disease on hemodialysis. * patient was sent due to blood clot in left arm fistula, because of this patient missed her hemodialysis yesterday, she usually goes to dialysis every Saturday and Saturday. * Patient states that she has a graft in the left upper arm which looks with no obvious thrill on palpation. Because of this she couldn't get hemodialysis as an outpatient. * Labs showing mild anemia with 10.2 hemoglobin, potassium 6.2 came back to 5.0. Creatinine 12.4. * Lactic acid 2.4. * Liver enzymes is a mildly elevated.Chest x-ray: No acute process * Status post tunneled hemodialysis catheter placement * Seen by nephrology, and surgery * Patient tunneled hemodialysis catheter worked fairly well and had 2 sessions of dialysis completed prior to discharge * Discharged home after hemodialysis on 10/19/22 GENERAL: The patient is alert and oriented x3, obese, tunneled hemodialysis catheter right anterior chest wall HEENT: Pupils are round and equally reacting to light. EOMI. No scleral icterus. No conjunctival pallor. Normocephalic, atraumatic. No pharyngeal erythema. No thyromegaly. CARDIOVASCULAR: S1 and S2 present. No murmurs, rubs, or gallops. Lower extremity edema PULMONARY: Chest is clear to auscultation, no wheezing or crackles. ABDOMEN: Soft, nontender, nondistended, normoactive bowel sounds. No palpable organomegaly. MUSCULOSKELETAL: No joint swelling or deformity. EXTREMITIES: No cyanosis, clubbing, or pedal edema. NEUROLOGICAL: Gross neurological examination did not reveal any focal deficits. SKIN: No rashes. Assessment: Clotted hemodialysis catheter status post tunneled hemodialysis catheter placement Hyperkalemia, treated End-stage renal disease disease on hemodialysis, Saturday and Saturday. Hypothyroidism Diabetes mellitus History of GERD Hypertension History of coronary artery disease History of sleep apnea * Consult obtained from surgery and nephrology * Status post tunneled hemodialysis catheter placement, received hemodialysis 10/19, * In regards to diabetes mellitus >> home regimen continued without changes patient is on Lantus and Humalog we'll defer further monitoring to PCP * In regard to hypothyroidism continue Synthroid * Hemodialysis fistula left arm not working despite intervention, will need outpatient follow-up with vascular surgery Patient Condition at Discharge: Fair Plan - Discharge Summary New Discharge Prescriptions: Continue Aspirin 325 mg PO DAILY@1600 Levothyroxine Sodium [Synthroid] 150 mcg PO MOTUWETHFRSA carvediloL 25 mg PO DAILY@1600 PRN PRN Reason: high blood pressure Insulin Lispro [humaLOG Kwikpen] 25 unit SQ AC-SUPPER Nephro-Nav 1 cap PO DAILY@1600 Montelukast [Singulair] 10 mg PO HS Insulin Lispro [humaLOG Kwikpen] 23 unit SQ AC-BID@0900,1200 Insulin Glargine,Hum.rec.anlog [Lantus Solostar Pen] 33 units SQ BID Sevelamer [Renvela] 1,600 mg PO TID-W/MEALS Levothyroxine Sodium [Synthroid] 225 mcg PO GILLESPIE Ergocalciferol [Vitamin D2 (1250 Mcg = 13072 Iu)] 1,250 mcg PO GILLESPIE Simvastatin [Zocor] 40 mg PO HS Discharge Medication List Aspirin 325 mg PO DAILY@1600 07/28/19 [History] Levothyroxine Sodium [Synthroid] 150 mcg PO MOTUWETHFRSA 03/25/20 [History] carvediloL 25 mg PO DAILY@1600 PRN 08/16/21 [History] Ergocalciferol [Vitamin D2 (1250 Mcg = 40526 Iu)] 1,250 mcg PO GILLESPIE 12/20/21 [History] Levothyroxine Sodium [Synthroid] 225 mcg PO GILLESPIE 12/20/21 [History] Insulin Glargine,Hum.rec.anlog [Lantus Solostar Pen] 33 units SQ BID 07/21/22 [History] Insulin Lispro [humaLOG Kwikpen] 23 unit SQ AC-BID@0900,1200 07/21/22 [History] Insulin Lispro [humaLOG Kwikpen] 25 unit SQ AC-SUPPER 07/21/22 [History] Montelukast [Singulair] 10 mg PO HS 07/21/22 [History] Nephro-Nav 1 cap PO DAILY@1600 07/21/22 [History] Sevelamer [Renvela] 1,600 mg PO TID-W/MEALS 10/17/22 [History] Simvastatin [Zocor] 40 mg PO HS 10/17/22 [History] Follow up Appointment(s)/Referral(s): Candelaria Barrera MD [Primary Care Provider] - 1-2 days Tracy Chen DO [STAFF PHYSICIAN] - 2 Weeks Discharge Disposition: HOME SELF-CARE
[2022-10-19 17:19] LABS: Glucose,Whole Blood 164 mg/dL (70-110)
[2022-10-19] MEDS: carvediloL 12.5 MG TAB PO SCH (17:38)
[2022-10-19 17:48] VITALS: BP 130/50; PULSE 61; RESP 20; TEMP 98
[2022-10-21] MEDS ORDERED: LEVOTHYROXINE 75 MCG TAB PO SCH (06:30)
[2022-10-21] MEDS ORDERED: ERGOCALCIFEROL 1,250 MCG (50,000 IU) CAPSULE PO SCH (09:00)
== END 2022-10-19 17:45 | disposition home or self-care (01) ==
LOC: EC 09:03 → 6NMEDSUR 11:49
PROVIDERS: ADMIT Internal Medicine; ATTEND Internal Medicine
DX: I82.A12 Acute embolism and thrombosis of left axillary vein (principal); K21.9 Gastro-esophageal reflux disease without esophagitis; E78.5 Hyperlipidemia, unspecified; I10 Essential (primary) hypertension; I25.2 Old myocardial infarction; M19.90 Unspecified osteoarthritis, unspecified site; G47.30 Sleep apnea, unspecified; I12.9 Hypertensive chronic kidney disease with stage 1 through stage 4 chronic kidney disease, or unspecified chronic kidney disease; E11.22 Type 2 diabetes mellitus with diabetic chronic kidney disease; Z99.2 Dependence on renal dialysis; N18.9 Chronic kidney disease, unspecified; I69.398 Other sequelae of cerebral infarction; R26.89 Other abnormalities of gait and mobility; H54.62 Unqualified visual loss, left eye, normal vision right eye; D64.9 Anemia, unspecified; Z98.891 History of uterine scar from previous surgery; Z90.710 Acquired absence of both cervix and uterus; Z98.890 Other specified postprocedural states; Z80.9 Family history of malignant neoplasm, unspecified; Z79.4 Long term (current) use of insulin; Z79.82 Long term (current) use of aspirin; Z79.890 Hormone replacement therapy; Z79.899 Other long term (current) drug therapy
CPT/HCPCS: 96372; 36415; 94760; 93005; 36558; 76937; 77001; 80053; 80048; 83605; 83735 ×2; 84100 ×2; 84132; 85025; 85610; 85730; 71045; 71046; G0378 ×3; C1894; C1769 ×3; C1750; C2623 ×2; C1725; J2250; J1644 ×3; J0690; J2405; J2001 ×2; J3010; J2997; Q9966; J0613; 90935

== ENCOUNTER 2023-01-10 11:36 | Day surgery (SDC) | payer MEDICARE, BC, OTHER ==
[2023-01-09 11:04] VITALS: BMI 59.3
[~2023-01-10 11:36] MED LIST changes: -ALTEPLASE 10 MG in SODIUM CHLORIDE 0.9% 90 ML IA ONE; +DEXAMETHASONE SOD PHOSPHATE 4 MG/ML 1 ML VIAL IV ONE; +HYDROmorphone 0.5 MG/0.5 ML SYRINGE IVP PRN; +LACTATED RINGERS 1,000 ML IV SCH; +ONDANSETRON 4 MG/2 ML VIAL IVP ONE; +ceFAZolin 3 GM in SODIUM CHLORIDE 0.9% 100 ML IVPB PRN
--- NOTE | 2023-01-10 12:29 | P.HPIHPCON ---
History of Present Illness H&P Date: 01/10/23 Patient is external female in today for creation of right upper extremity loop axillary graft. She has end-stage renal disease and currently in dialysis via a right chest wall tunneled catheter. She's had multiple other access site that have subsequently failed. She denies any issue or changes since our last office visit Consent for Procedure: I have explained the operation/procedure to the patient, including the risks, benefits, side effects, alternative therapies (including not receiving the proposed treatment or service), the likelihood of the patient achieving his/her goals, and potential recuperation problems for the procedure/sedation/analgesia, as well as any blood products, if indicated. I also explained to the patient the risks, benefits and side effects of the alternatives, as well as the risks related to not receiving the proposed procedure, care, treatment, or services. 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 6 years. Last Myocardial Infarction Date:: Unknown History of Any Multi-Drug Resistant Organisms: None Reported Past Surgical History: Section, Hysterectomy, Orthopedic Surgery Additional Past Surgical History / Comment(s): Had open thrombectomy left axillary graft on 12-21-21,BONE TUMOR REMOVED FROM LT FINGER AND REPLACED WITH BONE FROM ELBOW. DIALYSIS FISTULA rt arm-old, lasik rt eye surgery, right upper ext. left AV graft revision 03-31-20 Past Anesthesia/Blood Transfusion Reactions: Postoperative Nausea & Vomiting (PONV) Past Psychological History: No Psychological Hx Reported Smoking Status: Never smoker Past Alcohol Use History: None Reported Past Drug Use History: None Reported - Past Family History Mother Family Medical History: Cancer Brother(s) Family Medical History: Cancer Medications and Allergies Home Medications Medication Instructions Recorded Confirmed Type Aspirin 325 mg PO DAILY@1600 07/28/19 01/09/23 History Levothyroxine Sodium [Synthroid] 150 mcg PO MOTUWETHFRSA 03/25/20 01/09/23 History carvediloL 25 mg PO DAILY@1600 08/16/21 01/09/23 History Ergocalciferol [Vitamin D2 (1250 1,250 mcg PO GILLESPIE 12/20/21 01/09/23 History Mcg = 88957 Iu)] Levothyroxine Sodium [Synthroid] 225 mcg PO GILLESPIE 12/20/21 01/09/23 History Insulin Glargine,Hum.rec.anlog 33 units SQ BID 07/21/22 01/09/23 History [Lantus Solostar Pen] Insulin Lispro [humaLOG Kwikpen] 0 unit SQ TID-W/MEALS 07/21/22 01/09/23 History Nephro-Nav 1 cap PO DAILY@1600 07/21/22 01/09/23 History Sevelamer [Renvela] 1,600 mg PO TID-W/MEALS 10/17/22 01/09/23 History Simvastatin [Zocor] 40 mg PO HS 10/17/22 01/09/23 History Omeprazole [PriLOSEC] 20 mg PO DAILY 01/09/23 01/09/23 History Allergies Allergy/AdvReac Type Severity Reaction Status Date / Time No Known Allergies Allergy Verified 01/10/23 12:07 Surgical - Exam Gen. a pleasant cooperative female in no acute distress, morbidly obese. HEENT is normal cephalic, atraumatic, extraocular muscles intact. Heart appears regular. Lungs are clear. Right chest wall catheter clean, dry, intact. Assessment and Plan Assessment: End-stage renal disease, need for dialysis access Super morbid obesity Plan: Right upper extremity loop AV graft plan for the axilla. Risks and benefits were discussed including but not limited to Bleeding, infection and injury to the vessel. Patient seemingly understands and is willing to proceed.
[2023-01-10 12:54] LABS: Glucose,Whole Blood 240 mg/dL (70-110)
[2023-01-10 12:57] LABS: Basophils % (A) 1 %; Eosinophils # (A) 0.2 k/uL (0-0.7); Eosinophils % (A) 3 %; HCT 29.9 % (34.0-46.0); HGB 10.4 gm/dL (11.4-16.0); Lymphocytes # (A) 1.9 k/uL (1.0-4.8); Lymphocytes % (A) 24 %; MCH 36.9 pg (25.0-35.0); MCHC 34.9 g/dL (31.0-37.0); MCV 105.5 fL (80.0-100.0); Macrocytosis Moderate; Mean Platelet Volume 9.2; Monocytes # (A) 0.2 k/uL (0-1.0); Monocytes % (A) 3 %; Neutrophils # (A) 5.2 k/uL (1.3-7.7); Neutrophils % (A) 67 %; Platelet Count 202 k/uL (150-450); RBC 2.83 m/uL (3.80-5.40); RDW 14.1 % (11.5-15.5); WBC 7.8 k/uL (3.8-10.6)
[2023-01-10] MEDS ORDERED: SODIUM CHLORIDE 0.9% 1,000 ML IV ONE (13:14)
[2023-01-10] MEDS ORDERED: DEXAMETHASONE SOD PHOSPHATE 4 MG/ML 1 ML VIAL IVP ONE (13:21)
[2023-01-10] MEDS ORDERED: ONDANSETRON 4 MG/2 ML VIAL IVP ONE (13:21)
[2023-01-10] MEDS ORDERED: INSULIN ASPART (NovoLOG) 100 UNIT/ML VIAL SQ ONE (13:32)
[2023-01-10 13:35] LABS: African American GFR (CKD) 5 (>60 ml/min/1.73 sqM); Blood Urea Nitrogen 48 mg/dL (7-17); Non-African American GFR(CKD) 4 (>60 ml/min/1.73 sqM); Potassium 4.6 mmol/L (3.5-5.1)
[2023-01-10] MEDS ORDERED: HYDROmorphone (PF) 1 MG/ML ONE (13:50)
[2023-01-10] MEDS ORDERED: MIDAZOLAM 2 MG/2 ML VIAL ONE (13:50)
[2023-01-10] MEDS ORDERED: GLYCOPYRROLATE 0.2 MG/ML 2 ML VIAL ONE (13:50)
[2023-01-10] MEDS ORDERED: fentaNYL (PF) 50 MCG/ML 2 ML AMP ONE (13:50)
[2023-01-10] MEDS ORDERED: NEOSTIGMINE 1 MG/ML 10 ML VIAL ONE (13:50)
[2023-01-10] MEDS ORDERED: diphenhydrAMINE 50 MG/ML 1 ML VIAL ONE (13:50)
[2023-01-10] MEDS ORDERED: SUCCINYLCHOLINE CHLORIDE 200 MG/10 ML VIAL IV ONE (13:50)
[2023-01-10] MEDS ORDERED: ROCURONIUM 10 MG/ML (5 ML VIAL) IV ONE (13:50)
[2023-01-10] MEDS ORDERED: HEPARIN SODIUM,PORCINE 5,000 UNIT/ML 1 ML VIAL ONE (13:50)
[2023-01-10] MEDS ORDERED: PROPOFOL 10 MG/ML 20 ML VIAL IV ONE (13:50)
[2023-01-10] MEDS ORDERED: ePHEDrine 50 MG/ML 1 ML VIAL ONE (13:50)
[2023-01-10] MEDS ORDERED: HEPARIN SODIUM,PORCINE (1 ML) 2,000 UNIT in SODIUM CHLORIDE 0.9% 500 ML 500 ML IRRIGATION ONE (14:24)
[2023-01-10] MEDS ORDERED: ceFAZolin 2 GM in SODIUM CHLORIDE 0.9% 500 ML 500 ML IRRIGATION ONE (14:25)
[2023-01-10] MEDS ORDERED: LIDOCAINE 1%-EPI 1:100,000 50 ML VIAL SQ ONE (14:39)
[2023-01-10] MEDS ORDERED: THROMBIN (BOVINE) 5,000 UNIT VIAL MISCELLANE ONE (15:10)
[2023-01-10] MEDS ORDERED: GELATIN SPONGE,ABSORB (LARGE) 1 EACH SPONGE MISCELLANE ONE (15:11)
[2023-01-10] MEDS ORDERED: BACITRACIN ZINC 500 UNIT/GM OINT 28.4 GM TUBE TOPICAL ONE (16:12)
--- NOTE | 2023-01-10 16:37 | P.OP ---
Date of Procedure: 01/10/23 Description of Procedure: Preoperative diagnosis: End-stage renal disease on dialysis, morbid obesity Postoperative diagnosis: Same Procedure: Right upper extremity axillary loop graft Surgeon: Tracy Chen D.O. EBL: 35 mL IV fluids: See records Urine output: None measured Drains: None Complications: None immediately apparent Condition: Stable to recovery Operative indication and findings: The patient is a 67-year-old female with end- stage renal disease who has failed previous multiple grafts and presents today for right upper extremity loop axillary graft. Risks and benefits were discussed. She seemingly understood and was willing to proceed. Procedure in detail: The patient was taken to the operative suite and placed in supine position. The right upper extremity and chest were prepped and draped in usual sterile fashion. A preprocedure timeout was performed, all parties were in agreement. The ultrasound was utilized and the axillary artery and vein were identified. An incision was made in the axilla and a transverse fashion and carried down through subcutaneous tissues to the fascia. This dissection was very deep approximately 3-4 cm to get to the vessels. The fascia was incised and the vein was identified. It was cleared of its surrounding tissues. The artery was identified and cleared circumferentially proximally and distally. After that a subcutaneous plane was made and a counterincision was made at the proposed apex of the loop. A 4 x 7 long PTFE graft was tunneled and the patient was heparinized. After appropriate heparinization flow was occluded through the artery and arteriotomy was made. The anastomosis was created with 6-0 Prolene. The graft was flushed prior to completion. That point flow was occluded through the graft and thrombin and Gelfoam was utilized for hemostasis of the anastomosis. Attention was then turned towards the vein. A Satinsky clamp was placed and a venotomy was performed. Anastomosis was performed using 6-0 Prolene. Prior to completion of the anastomosis the vein was allowed to backbleed and flushed. Interrupted sutures of 6-0 Prolene were used for hemostasis. Flow was opened then through the graft itself. Doppler was utilized to confirm proximal and distal flow to the anastomoses at both spots. There maintained Doppler signal at the radial artery. The wound was then copiously irrigated. Yhe deep dermal tissues were reapproximated with interrupted sutures of inverted 3-0 Vicryl. The skin was reapproximated at both sites with running 4-0 Monocryl. Skin glue was placed. The patient was allowed awaken from anesthesia and transferred to recovery in stable condition having tolerated the procedure well. Plan - Discharge Summary Discharge Rx Participant: No New Discharge Prescriptions: New Clindamycin [Cleocin] 300 mg PO Q8H #15 cap No Action Aspirin 325 mg PO DAILY@1600 Levothyroxine Sodium [Synthroid] 150 mcg PO MOTUWETHFRSA carvediloL 25 mg PO DAILY@1600 Nephro-Nav 1 cap PO DAILY@1600 Insulin Lispro [humaLOG Kwikpen] 0 unit SQ TID-W/MEALS Insulin Glargine,Hum.rec.anlog [Lantus Solostar Pen] 33 units SQ BID Sevelamer [Renvela] 1,600 mg PO TID-W/MEALS Levothyroxine Sodium [Synthroid] 225 mcg PO GILLESPIE Ergocalciferol [Vitamin D2 (1250 Mcg = 54201 Iu)] 1,250 mcg PO GILLESPIE Simvastatin [Zocor] 40 mg PO HS Omeprazole [PriLOSEC] 20 mg PO DAILY Discharge Medication List Aspirin 325 mg PO DAILY@1600 07/28/19 [History] Levothyroxine Sodium [Synthroid] 150 mcg PO MOTUWETHFRSA 03/25/20 [History] carvediloL 25 mg PO DAILY@1600 08/16/21 [History] Ergocalciferol [Vitamin D2 (1250 Mcg = 87335 Iu)] 1,250 mcg PO GILLESPIE 12/20/21 [History] Levothyroxine Sodium [Synthroid] 225 mcg PO GILLESPIE 12/20/21 [History] Insulin Glargine,Hum.rec.anlog [Lantus Solostar Pen] 33 units SQ BID 07/21/22 [History] Insulin Lispro [humaLOG Kwikpen] 0 unit SQ TID-W/MEALS 07/21/22 [History] Nephro-Nav 1 cap PO DAILY@1600 07/21/22 [History] Sevelamer [Renvela] 1,600 mg PO TID-W/MEALS 10/17/22 [History] Simvastatin [Zocor] 40 mg PO HS 10/17/22 [History] Omeprazole [PriLOSEC] 20 mg PO DAILY 01/09/23 [History] Clindamycin [Cleocin] 300 mg PO Q8H #15 cap 01/10/23 [Rx] Follow up Appointment(s)/Referral(s): Tracy Chen DO [STAFF PHYSICIAN] - 2 Weeks Activity/Diet/Wound Care/Special Instructions: Resume home medications, resume home activity. May return to bathing as previous. Do not fully extend arm above her head for 1 week. Continue oral antibiotics for 5 days. Discharge Disposition: HOME SELF-CARE
[2023-01-10 16:45] VITALS: TEMP 97.5
[2023-01-10] MEDS ORDERED: INSULIN ASPART (NovoLOG) 100 UNIT/ML VIAL SQ SCH (17:30)
[2023-01-10 17:36] LABS: Glucose,Whole Blood 213 mg/dL (70-110)
[2023-01-10 17:59] VITALS: BP 148/66; PULSE 67; RESP 20
== END 2023-01-10 18:11 | disposition home or self-care (01) ==
LOC: OR 11:36
PROVIDERS: ATTEND Surgery
DX: I12.0 Hypertensive chronic kidney disease with stage 5 chronic kidney disease or end stage renal disease (principal); E11.22 Type 2 diabetes mellitus with diabetic chronic kidney disease; N18.6 End stage renal disease; I25.2 Old myocardial infarction; E66.01 Morbid (severe) obesity due to excess calories; K21.9 Gastro-esophageal reflux disease without esophagitis; G47.33 Obstructive sleep apnea (adult) (pediatric); Z79.4 Long term (current) use of insulin; Z79.82 Long term (current) use of aspirin; Z79.899 Other long term (current) drug therapy; Z86.73 Personal history of transient ischemic attack (TIA), and cerebral infarction without residual deficits
CPT/HCPCS: 36830; 93005; 82565; 84132; 84520; 85025; J2250; J0330; J1200; J1644; J1100; J2710; J0690; J2405; J3010; J1170; J2704

== ENCOUNTER 2023-02-06 06:00 | Emergency (ER) | payer MEDICARE, BC, OTHER ==
[2023-02-06 06:51] LABS: Basophils % (A) 0 %; Eosinophils # (A) 0.2 k/uL (0-0.7); Eosinophils % (A) 3 %; HCT 28.9 % (34.0-46.0); HGB 9.9 gm/dL (11.4-16.0); Lymphocytes # (A) 1.5 k/uL (1.0-4.8); Lymphocytes % (A) 21 %; MCH 36.1 pg (25.0-35.0); MCHC 34.3 g/dL (31.0-37.0); MCV 105.4 fL (80.0-100.0); Macrocytosis Moderate; Mean Platelet Volume 8.7; Monocytes # (A) 0.4 k/uL (0-1.0); Monocytes % (A) 5 %; Neutrophils % (A) 70 %; Platelet Count 213 k/uL (150-450); RBC 2.74 m/uL (3.80-5.40); WBC 7.1 k/uL (3.8-10.6)
[2023-02-06 07:00] VITALS: RESP 18; TEMP 99.3
[2023-02-06 07:06] LABS: ALT 23 U/L (4-34); AST 26 U/L (14-36); African American GFR (CKD) 6 (>60 ml/min/1.73 sqM); Albumin 3.5 g/dL (3.5-5.0); Alkaline Phosphatase 82 U/L (38-126); Anion Gap 14 mmol/L; Blood Urea Nitrogen 31 mg/dL (7-17); Calcium 8.6 mg/dL (8.4-10.2); Carbon Dioxide 25 mmol/L (22-30); Chloride 98 mmol/L (98-107); Glucose 176 mg/dL (74-99); Lipase 51 U/L (23-300); Magnesium 2.1 mg/dL (1.6-2.3); Non-African American GFR(CKD) 5 (>60 ml/min/1.73 sqM); Phosphorus 4.9 mg/dL (2.5-4.5); Potassium 4.1 mmol/L (3.5-5.1); Sodium 137 mmol/L (137-145); Total Bilirubin 0.4 mg/dL (0.2-1.3)
--- NOTE | 2023-02-06 07:08 | ED ---
General Adult HPI - General Chief complaint: Nausea/Vomiting/Diarrhea Stated complaint: Abdominal Pain Time Seen by Provider: 02/06/23 06:06 Source: patient, RN notes reviewed Mode of arrival: wheelchair Limitations: no limitations - History of Present Illness Initial comments: 67-year-old female presents emergency Department chief complaint of diarrhea. Patient states started last . Patient states that she's had multiple episodes. She denies any melena or hematochezia. Patient denies any significant nausea vomiting no fevers or chills she states that she went to dialysis on Saturday when she was at her normal dry weight. Patient was on antibiotics over a week ago after she had surgery of her right arm. Patient no history of any bowel infections denies any recent traveling. - Related Data Home Medications Medication Instructions Recorded Confirmed Aspirin 325 mg PO DAILY@1600 07/28/19 01/10/23 Levothyroxine Sodium [Synthroid] 150 mcg PO MOTUWETHFRSA 03/25/20 01/10/23 carvediloL 25 mg PO DAILY@1600 08/16/21 01/10/23 Ergocalciferol [Vitamin D2 (1250 1,250 mcg PO GILLESPIE 12/20/21 01/10/23 Mcg = 20569 Iu)] Levothyroxine Sodium [Synthroid] 225 mcg PO GILLESPIE 12/20/21 01/10/23 Insulin Glargine,Hum.rec.anlog 33 units SQ BID 07/21/22 01/10/23 [Lantus Solostar Pen] Insulin Lispro [humaLOG Kwikpen] 0 unit SQ TID-W/MEALS 07/21/22 01/10/23 Nephro-Nav 1 cap PO DAILY@1600 07/21/22 01/10/23 Sevelamer [Renvela] 1,600 mg PO TID-W/MEALS 10/17/22 01/10/23 Simvastatin [Zocor] 40 mg PO HS 10/17/22 01/10/23 Omeprazole [PriLOSEC] 20 mg PO DAILY 01/09/23 01/10/23 Previous Rx's Medication Instructions Recorded Clindamycin [Cleocin] 300 mg PO Q8H #15 cap 01/10/23 Vancomycin 125 mg PO QID #40 capsule 02/06/23 Allergies Allergy/AdvReac Type Severity Reaction Status Date / Time No Known Allergies Allergy Verified 01/10/23 12:07 Review of Systems ROS Statement: Those systems with pertinent positive or pertinent negative responses have been documented in the HPI. ROS Other: All systems not noted in ROS Statement are negative. 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 6 years. Last Myocardial Infarction Date:: Unknown History of Any Multi-Drug Resistant Organisms: None Reported Past Surgical History: Section, Hysterectomy, Orthopedic Surgery Additional Past Surgical History / Comment(s): Had open thrombectomy left axillary graft on 12-21-21,BONE TUMOR REMOVED FROM LT FINGER AND REPLACED WITH BONE FROM ELBOW. DIALYSIS FISTULA rt arm-old, lasik rt eye surgery, right upper ext. left AV graft revision 03-31-20 Past Anesthesia/Blood Transfusion Reactions: Postoperative Nausea & Vomiting (PONV) Past Psychological History: No Psychological Hx Reported Smoking Status: Never smoker Past Alcohol Use History: None Reported Past Drug Use History: None Reported - Past Family History Mother Family Medical History: Cancer Brother(s) Family Medical History: Cancer General Exam Limitations: no limitations General appearance: alert, in no apparent distress Head exam: Present: atraumatic, normocephalic, normal inspection Eye exam: Present: normal appearance, PERRL, EOMI. Absent: scleral icterus, conjunctival injection, periorbital swelling ENT exam: Present: normal exam, normal oropharynx, mucous membranes moist Neck exam: Present: normal inspection, full ROM. Absent: tenderness, meningismus, lymphadenopathy Respiratory exam: Present: normal lung sounds bilaterally. Absent: respiratory distress, wheezes, rales, rhonchi, stridor Cardiovascular Exam: Present: regular rate, normal rhythm, normal heart sounds. Absent: systolic murmur, diastolic murmur, rubs, gallop, clicks GI/Abdominal exam: Present: soft, tenderness, normal bowel sounds. Absent: distended, guarding, rebound, rigid Course Vital Signs 02/06/23 02/06/23 02/06/23 06:01 06:36 09:55 Temperature 98.1 F 99.3 F Pulse Rate 73 67 66 Respiratory 16 18 18 Rate Blood Pressure 164/70 152/63 118/82 O2 Sat by Pulse 96 97 96 Oximetry Medical Decision Making - Medical Decision Making Was pt. sent in by a medical professional or institution (, PA, CUTTING MACHINE TENDER, urgent care, hospital, or shelter...) When possible be specific @ -No Did you speak to anyone other than the patient for history (EMS, parent, family, police, friend...)? What history was obtained from this source @ -No Did you review nursing and triage notes (agree or disagree)? Why? @ -I reviewed and agree with nursing and triage notes Were old charts reviewed (outside hosp., previous admission, EMS record, old EKG, old radiological studies, urgent care reports/EKG's, shelter records)? Report findings @ -reviewed prior labs] Differential Diagnosis (chest pain, altered mental status, abdominal pain women, abdominal pain men, vaginal bleeding, weakness, fever, dyspnea, syncope, headache, dizziness, GI bleed, back pain, seizure, CVA, palpatations, mental health, musculoskeletal)? @ -Differential Abdominal Pain Women: Appendicitis, Cholecystitis, diverticulosis, ischemic bowel, pancreatitis, hepatitis, UTI, gastroenteritis, AAA, incarcerated hernia, bowel obstruction, constipation, inflammatory bowel, hepatitis, peptic ulcer disease, splenic infarction, perforated viscus, vulvitis, ovarian torsion, PID, kidney stone, placenta abruption, this is not meant to be an all-inclusive listble EKG interpreted by me (3pts min.). @ -None X-rays interpreted by me (1pt min.). @ -None done CT interpreted by me (1pt min.). @ -None done U/S interpreted by me (1pt. min.). @ -None done What testing was considered but not performed or refused? (CT, X-rays, U/S, labs)? Why? @ -None What meds were considered but not given or refused? Why? @ -None Did you discuss the management of the patient with other professionals (professionals i.e. , SUDHA, CUTTING MACHINE TENDER, lab, RT, psych nurse, group social worker, hand bander, teacher, commanding officer homicide squad, child support case officer)? Give summary @ -No Was smoking cessation discussed for >3mins.? @ -No Was critical care preformed (if so, how long)? @ -No Were there social determinants of health that impacted care today? How? (Homelessness, low income, unemployed, alcoholism, drug addiction, tr ansportation, low edu. Level, literacy, decrease access to med. care, senior living, rehab)? @ -No Was there de-escalation of care discussed even if they declined (Discuss DNR or withdrawal of care, Hospice)? DNR status @ -No What co-morbidities impacted this encounter? (DM, HTN, Smoking, COPD, CAD, Cancer, CVA, ARF, Chemo, Hep., AIDS, mental health diagnosis, sleep apnea, morbid obesity)? @ -ESRD Was patient admitted / discharged? Hospital course, mention meds given and route, prescriptions, significant lab abnormalities, going to OR and other pertinent info. @ -Discharge patient is positive for C. diff patient is but is stable, no signs of distress we discharged and oral vancomycin patient will contact dialysis as she was directed Undiagnosed new problem with uncertain prognosis? @ -No Drug Therapy requiring intensive monitoring for toxicity (Heparin, Nitro, Insulin, Cardizem)? @ -No Were any procedures done? @ -No Diagnosis/symptom? @ -C. diff] Acute, or Chronic, or Acute on Chronic? @ -Acute Uncomplicated (without systemic symptoms) or Complicated (systemic symptoms)? @ -[complicated Side effects of treatment? @ -No Exacerbation, Progression, or Severe Exacerbation? @ -No Poses a threat to life or bodily function? How? (Chest pain, [place], [place], pneumonia, PE, COPD, DKA, ARF, appy, cholecystitis, CVA, Diverticulitis, Homicidal, Naomi cidal, threat to staff... and all critical care pts) @ -No - Lab Data Result diagrams: 02/06/23 06:43 02/06/23 06:43 Lab Results 02/06/23 02/06/23 02/06/23 Range/Units 06:43 06:43 07:21 WBC 7.1 (3.8-10.6) k/uL RBC 2.74 L (3.80-5.40) m/uL Hgb 9.9 L (11.4-16.0) gm/dL Hct 28.9 L (34.0-46.0) % MCV 105.4 H (80.0-100.0) fL MCH 36.1 H (25.0-35.0) pg MCHC 34.3 (31.0-37.0) g/dL RDW 14.0 (11.5-15.5) % Plt Count 213 (150-450) k/uL MPV 8.7 Neutrophils % 70 % Lymphocytes % 21 % Monocytes % 5 % Eosinophils % 3 % Basophils % 0 % Neutrophils # 5.0 (1.3-7.7) k/uL Lymphocytes # 1.5 (1.0-4.8) k/uL Monocytes # 0.4 (0-1.0) k/uL Eosinophils # 0.2 (0-0.7) k/uL Basophils # 0.0 (0-0.2) k/uL Macrocytosis Moderate Sodium 137 (137-145) mmol/L Potassium 4.1 (3.5-5.1) mmol/L Chloride 98 (98-107) mmol/L Carbon Dioxide 25 (22-30) mmol/L Anion Gap 14 mmol/L BUN 31 H (7-17) mg/dL Creatinine 7.81 H* (0.52-1.04) mg/dL Est GFR (CKD-EPI)AfAm 6 (>60 ml/min/1.73 sqM) Est GFR (CKD-EPI)NonAf 5 (>60 ml/min/1.73 sqM) Glucose 176 H (74-99) mg/dL Calcium 8.6 (8.4-10.2) mg/dL Phosphorus 4.9 H (2.5-4.5) mg/dL Magnesium 2.1 (1.6-2.3) mg/dL Total Bilirubin 0.4 (0.2-1.3) mg/dL AST 26 (14-36) U/L ALT 23 (4-34) U/L Alkaline Phosphatase 82 (38-126) U/L Total Protein 7.0 (6.3-8.2) g/dL Albumin 3.5 (3.5-5.0) g/dL Lipase 51 (23-300) U/L C. difficile (EIA) Intrp Positive A (Negative) Disposition Clinical Impression: End stage renal disease, C. difficile diarrhea Disposition: HOME SELF-CARE Condition: Stable Instructions (If sedation given, give patient instructions): C. Diff (Clostridioides Difficile) Infection (ED) Additional Instructions: Please return to the Emergency Department if symptoms worsen or any other concerns. Prescriptions: Vancomycin 125 mg PO QID #40 capsule Is patient prescribed a controlled substance at d/c from ED?: No Referrals: Candelaria Barrera MD [Primary Care Provider] - 1-2 days Time of Disposition: 11:28
[2023-02-06 10:21] VITALS: BP 118/82; PULSE 66
== END 2023-02-06 19:26 | disposition home or self-care (01) ==
LOC: EC 06:00
DX: A04.72 Enterocolitis due to Clostridium difficile, not specified as recurrent (principal); E11.22 Type 2 diabetes mellitus with diabetic chronic kidney disease; I12.0 Hypertensive chronic kidney disease with stage 5 chronic kidney disease or end stage renal disease; N18.6 End stage renal disease; E78.5 Hyperlipidemia, unspecified; K21.9 Gastro-esophageal reflux disease without esophagitis; I25.2 Old myocardial infarction; M19.90 Unspecified osteoarthritis, unspecified site; E07.9 Disorder of thyroid, unspecified; Z86.73 Personal history of transient ischemic attack (TIA), and cerebral infarction without residual deficits; Z99.2 Dependence on renal dialysis; Z79.4 Long term (current) use of insulin; Z79.890 Hormone replacement therapy; Z79.899 Other long term (current) drug therapy
CPT/HCPCS: 36415; 80053; 83690; 83735; 84100; 85025; 87045; 87046; 87324; 99284

== ENCOUNTER 2023-03-14 09:53 | Emergency (ER) | payer MEDICARE, BC ==
[2023-03-14 10:13] VITALS: TEMP 97.1
[2023-03-14 10:33] LABS: Basophils % (A) 1 %; Eosinophils # (A) 0.2 k/uL (0-0.7); Eosinophils % (A) 2 %; HCT 36.8 % (34.0-46.0); HGB 11.4 gm/dL (11.4-16.0); Hypochromasia Slight; Lymphocytes # (A) 1.8 k/uL (1.0-4.8); Lymphocytes % (A) 21 %; MCH 32.7 pg (25.0-35.0); MCV 105.6 fL (80.0-100.0); Macrocytosis Moderate; Mean Platelet Volume 8.8; Monocytes # (A) 0.3 k/uL (0-1.0); Monocytes % (A) 3 %; Neutrophils # (A) 6.1 k/uL (1.3-7.7); Neutrophils % (A) 72 %; Platelet Count 179 k/uL (150-450); RBC 3.48 m/uL (3.80-5.40); RDW 14.8 % (11.5-15.5); WBC 8.6 k/uL (3.8-10.6)
--- NOTE | 2023-03-14 12:28 | ED ---
General Adult HPI - General Source: patient Mode of arrival: ambulatory Limitations: no limitations <Josue Torres - Last Filed: 03/14/23 12:28> <Robe Cortes - Last Filed: 03/14/23 19:00> - General Chief complaint: Nausea/Vomiting/Diarrhea Stated complaint: Diarrhea Time Seen by Provider: 03/14/23 12:28 - History of Present Illness Initial comments: 68-year-old female with a past medical history significant for C. diff presenting to the ED with a chief complaint of diarrhea. Patient states this morning she had 4 episodes of diarrhea. States symptoms are reminiscent of prior history of C. diff and is worried she may have C. diff again. No blood in the stool. Denies nausea or vomiting. Denies fever or chill. (Josue Torres) - Related Data Home Medications Medication Instructions Recorded Confirmed Aspirin 325 mg PO DAILY@1600 07/28/19 03/14/23 Levothyroxine Sodium [Synthroid] 150 mcg PO MOTUWETHFRSA 03/25/20 03/14/23 carvediloL 25 mg PO BID 08/16/21 03/14/23 Ergocalciferol [Vitamin D2 (1250 1,250 mcg PO GILLESPIE 12/20/21 03/14/23 Mcg = 25540 Iu)] Levothyroxine Sodium [Synthroid] 225 mcg PO GILLESPIE 12/20/21 03/14/23 Insulin Glargine,Hum.rec.anlog 33 units SQ BID 07/21/22 03/14/23 [Lantus Solostar Pen] Insulin Lispro [humaLOG Kwikpen] 23 unit SQ TID-W/MEALS 07/21/22 03/14/23 Nephro-Nav 1 cap PO DAILY@1600 07/21/22 03/14/23 Sevelamer [Renvela] 1,600 mg PO TID-W/MEALS 10/17/22 03/14/23 Simvastatin [Zocor] 40 mg PO HS 10/17/22 03/14/23 Omeprazole [PriLOSEC] 20 mg PO DAILY 01/09/23 03/14/23 Allergies Allergy/AdvReac Type Severity Reaction Status Date / Time No Known Allergies Allergy Verified 03/14/23 16:53 Review of Systems ROS Other: All systems not noted in ROS Statement are negative. <Josue Torres - Last Filed: 03/14/23 12:28> ROS Other: All systems not noted in ROS Statement are negative. <Robe Cortes - Last Filed: 03/14/23 19:00> ROS Statement: Those systems with pertinent positive or pertinent negative responses have been documented in the HPI. 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 6 years. Last Myocardial Infarction Date:: Unknown History of Any Multi-Drug Resistant Organisms: None Reported Past Surgical History: Section, Hysterectomy, Orthopedic Surgery Additional Past Surgical History / Comment(s): Had open thrombectomy left axillary graft on 12-21-21,BONE TUMOR REMOVED FROM LT FINGER AND REPLACED WITH BONE FROM ELBOW. DIALYSIS FISTULA rt arm-old, lasik rt eye surgery, right upper ext. left AV graft revision 03-31-20 Past Anesthesia/Blood Transfusion Reactions: Postoperative Nausea & Vomiting (PO NV) Past Psychological History: No Psychological Hx Reported Smoking Status: Never smoker Past Alcohol Use History: None Reported Past Drug Use History: None Reported - Past Family History Mother Family Medical History: Cancer Brother(s) Family Medical History: Cancer <Josue Torres - Last Filed: 03/14/23 12:28> General Exam Limitations: no limitations <Josue Torres - Last Filed: 03/14/23 12:28> - General Exam Comments Initial Comments: Visual Physical Exam Vital signs reviewed General: Well-appearing, nontoxic, no acute distress. Head: Normocephalic, atraumatic Eyes: PERRLA, EOMI ENT: Airway patent Chest: Nonlabored breathing Skin: No visual rash, normal skin tone Neuro: Alert and oriented 3 Musculoskeletal: No gross abnormalities (Josue Torres) Course <Robe Cortes - Last Filed: 03/14/23 19:00> Vital Signs 03/14/23 03/14/23 10:02 17:41 Temperature 97.1 F L Pulse Rate 72 67 Respiratory 18 14 Rate Blood Pressure 130/58 140/76 O2 Sat by Pulse 98 97 Oximetry - Reevaluation(s) Reevaluation #1: 03/14/23 18:50 Johnson unable to give stool sample in the emergency department. Will provide stool sample to primary care provider. (Robe Cortes) Reevaluation #2: 03/14/23 19:00 States she will arrange for dialysis tomorrow and return to the emergency department with any worsening or changing symptoms. (Robe Cortes) Medical Decision Making - Lab Data Result diagrams: 03/14/23 10:07 <Josue Torres - Last Filed: 03/14/23 12:28> - Lab Data Result diagrams: 03/14/23 10:07 03/14/23 17:36 <Robe Cortes - Last Filed: 03/14/23 19:00> - Medical Decision Making Quicknote portion performed. Signed Josue Trores PA-C (Josue Torres) Was pt. sent in by a medical professional or institution (Dr. PA, EXECUTIVE PRODUCER PROMOS, urgent care, hospital, or long-term...) When possible be specific @ -No Did you speak to anyone other than the patient for history (EMS, parent, family, police, friend...)? What history was obtained from this source @ -No Did you review nursing and triage notes (agree or disagree)? Why? @ -I reviewed and agree with nursing and triage notes Were old charts reviewed (outside hosp., previous admission, EMS record, old EKG, old radiological studies, urgent care reports/EKG's, long-term records)? Report findings @ -No old charts were reviewed Differential Diagnosis (chest pain, altered mental status, abdominal pain women, abdominal pain men, vaginal bleeding, weakness, fever, dyspnea, syncope, headache, dizziness, GI bleed, back pain, seizure, CVA, palpatations, mental health, musculoskeletal)? @ Colitis, infectious diarrhea, Clostridium difficile EKG interpreted by me (3pts min.). @ -As above X-rays interpreted by me (1pt min.). @ -[ left foot x-ray for displaced fracture CT interpreted by me (1pt min.). @ -None done U/S interpreted by me (1pt. min.). @ -None done What testing was considered but not performed or refused? (CT, X-rays, U/S, labs)? Why? @ -None What meds were considered but not given or refused? Why? @ -None Did you discuss the management of the patient with other professionals (professionals i.e. DrJay, PA, EXECUTIVE PRODUCER PROMOS, lab, RT, psych nurse, manager social services, brass cleaner, teacher, combat systems officer, director of casework services)? Give summary @ -No Was smoking cessation discussed for >3mins.? @ -No Was critical care preformed (if so, how long)? @ -No Were there social determinants of health that impacted care today? How? (Homelessness, low income, unemployed, alcoholism, drug addiction, transportation, low edu. Level, literacy, decrease access to med. care, fdc, rehab)? @ -No Was there de-escalation of care discussed even if they declined (Discuss DNR or withdrawal of care, Hospice)? DNR status @ -No What co-morbidities impacted this encounter? (DM, HTN, Smoking, COPD, CAD, Cancer, CVA, ARF, Chemo, Hep., AIDS, mental health diagnosis, sleep apnea, morbid obesity)? @ End stage renal disease Was patient admitted / discharged? Hospital course, mention meds given and route, prescriptions, significant lab abnormalities, going to OR and other pertinent info. @ -[68-year-old female with diarrhea, recent history of Clostridium difficile. No further diarrhea while the emergency department. Laboratory testing is b aseline. Patient will follow with primary care provider if symptoms persist she will provide stool sample for testing. Undiagnosed new problem with uncertain prognosis? @ -No Drug Therapy requiring intensive monitoring for toxicity (Heparin, Nitro, Insulin, Cardizem)? @ -No Were any procedures done? @ -No Diagnosis/symptom? @ -Diarrhea Acute, or Chronic, or Acute on Chronic? @ -[Acute Uncomplicated (without systemic symptoms) or Complicated (systemic symptoms)? @ -default Side effects of treatment? @ -No Exacerbation, Progression, or Severe Exacerbation? @ -No Poses a threat to life or bodily function? How? (Chest pain, [place], [place], pneumonia, PE, COPD, DKA, ARF, appy, cholecystitis, CVA, Diverticulitis, Homicidal, Suicidal, threat to staff... and all critical care pts) @ -No (Robe Cortes) - Lab Data Lab Results 03/14/23 03/14/23 Range/Units 10:07 17:36 WBC 8.6 (3.8-10.6) k/uL RBC 3.48 L (3.80-5.40) m/uL Hgb 11.4 (11.4-16.0) gm/dL Hct 36.8 (34.0-46.0) % MCV 105.6 H (80.0-100.0) fL MCH 32.7 (25.0-35.0) pg MCHC 31.0 (31.0-37.0) g/dL RDW 14.8 (11.5-15.5) % Plt Count 179 (150-450) k/uL MPV 8.8 Neutrophils % 72 % Lymphocytes % 21 % Monocytes % 3 % Eosinophils % 2 % Basophils % 1 % Neutrophils # 6.1 (1.3-7.7) k/uL Lymphocytes # 1.8 (1.0-4.8) k/uL Monocytes # 0.3 (0-1.0) k/uL Eosinophils # 0.2 (0-0.7) k/uL Basophils # 0.0 (0-0.2) k/uL Hypochromasia Slight Macrocytosis Moderate Sodium 140 (137-145) mmol/L Potassium 5.3 H (3.5-5.1) mmol/L Chloride 100 (98-107) mmol/L Carbon Dioxide 29 (22-30) mmol/L Anion Gap 11 mmol/L BUN 35 H (7-17) mg/dL Creatinine 7.90 H* (0.52-1.04) mg/dL Est GFR (CKD-EPI)AfAm 5 (>60 ml/min/1.73 sqM) Est GFR (CKD-EPI)NonAf 5 (>60 ml/min/1.73 sqM) Glucose 91 (74-99) mg/dL Calcium 8.8 (8.4-10.2) mg/dL Total Bilirubin 0.7 (0.2-1.3) mg/dL AST 45 H (14-36) U/L ALT 30 (4-34) U/L Alkaline Phosphatase 68 (38-126) U/L Total Protein 7.0 (6.3-8.2) g/dL Albumin 3.5 (3.5-5.0) g/dL Disposition <Josue Torres - Last Filed: 03/14/23 12:28> Is patient prescribed a controlled substance at d/c from ED?: No Time of Disposition: 18:51 <Robe Cortes - Last Filed: 03/14/23 19:00> Clinical Impression: Diarrhea Disposition: HOME SELF-CARE Condition: Fair Instructions (If sedation given, give patient instructions): Acute Diarrhea (ED) Referrals: Candelaria Barrera MD [Primary Care Provider] - 1-2 days
[2023-03-14 17:56] LABS: ALT 30 U/L (4-34); AST 45 U/L (14-36); African American GFR (CKD) 5 (>60 ml/min/1.73 sqM); Albumin 3.5 g/dL (3.5-5.0); Alkaline Phosphatase 68 U/L (38-126); Anion Gap 11 mmol/L; Blood Urea Nitrogen 35 mg/dL (7-17); Calcium 8.8 mg/dL (8.4-10.2); Carbon Dioxide 29 mmol/L (22-30); Chloride 100 mmol/L (98-107); Glucose 91 mg/dL (74-99); Non-African American GFR(CKD) 5 (>60 ml/min/1.73 sqM); Sodium 140 mmol/L (137-145); Total Bilirubin 0.7 mg/dL (0.2-1.3)
[2023-03-14 18:16] LABS: Potassium 5.3 mmol/L (3.5-5.1)
--- NOTE | 2023-03-14 18:28 | XR ---
EXAMINATION TYPE: XR foot complete RT DATE OF EXAM: 03/14/2023 COMPARISON: NONE HISTORY: 68-year-old female with fall and pain, bruising and swelling TECHNIQUE: 3 views FINDINGS: Marked diffuse osteopenia. The degree of osteopenia significantly limits the exam. No displ aced fracture is seen. Moderate-sized plantar heel spur. Diffuse soft tissue swelling. At this chroni c calcifications. IMPRESSION: The degree of severe osteopenia limits the evaluation. No obvious displaced fracture is seen. There i s diffuse soft tissue swelling and bruising. If concern for occult osseous injury, MRI may be needed.
[2023-03-14 19:32] VITALS: BP 112/49; PULSE 73; RESP 16
== END 2023-03-14 19:24 | disposition home or self-care (01) ==
LOC: EC 09:53
DX: R19.7 Diarrhea, unspecified (principal); E11.22 Type 2 diabetes mellitus with diabetic chronic kidney disease; I12.0 Hypertensive chronic kidney disease with stage 5 chronic kidney disease or end stage renal disease; N18.6 End stage renal disease; E78.5 Hyperlipidemia, unspecified; I25.2 Old myocardial infarction; K21.9 Gastro-esophageal reflux disease without esophagitis; M19.90 Unspecified osteoarthritis, unspecified site; Z86.73 Personal history of transient ischemic attack (TIA), and cerebral infarction without residual deficits; E07.9 Disorder of thyroid, unspecified; Z79.82 Long term (current) use of aspirin; Z79.4 Long term (current) use of insulin; Z79.890 Hormone replacement therapy; Z79.899 Other long term (current) drug therapy; Z99.2 Dependence on renal dialysis
CPT/HCPCS: 36415; 80053; 85025; 99284

== ENCOUNTER 2023-05-11 10:35 | Inpatient (IN) | payer MEDICARE, BC ==
[2023-05-11 12:42] LABS: Basophils % (A) 0 %; Eosinophils % (A) 0 %; Lymphocytes # (A) 0.8 k/uL (1.0-4.8); Lymphocytes % (A) 4 %; MCH 33.7 pg (25.0-35.0); MCHC 33.6 g/dL (31.0-37.0); Macrocytosis Slight; Mean Platelet Volume 9.3; Monocytes # (A) 0.3 k/uL (0-1.0); Monocytes % (A) 2 %; Neutrophils # (A) 16.8 k/uL (1.3-7.7); Neutrophils % (A) 93 %; Platelet Count 213 k/uL (150-450); RDW 15.4 % (11.5-15.5); WBC 18.1 k/uL (3.8-10.6)
[2023-05-11 12:46] LABS: ALT 74 U/L (4-34); AST 150 U/L (14-36); African American GFR (CKD) 7 (>60 ml/min/1.73 sqM); Albumin 3.4 g/dL (3.5-5.0); Alkaline Phosphatase 133 U/L (38-126); Anion Gap 12 mmol/L; Blood Urea Nitrogen 22 mg/dL (7-17); Calcium 8.6 mg/dL (8.4-10.2); Carbon Dioxide 25 mmol/L (22-30); Chloride 99 mmol/L (98-107); Glucose 308 mg/dL (74-99); Non-African American GFR(CKD) 6 (>60 ml/min/1.73 sqM); Sodium 136 mmol/L (137-145); Total Bilirubin 1.1 mg/dL (0.2-1.3); Total Protein 7.1 g/dL (6.3-8.2)
[2023-05-11 12:47] LABS: HGB 9.4 gm/dL (11.4-16.0)
--- NOTE | 2023-05-11 12:47 | ED ---
General Adult HPI - General Chief complaint: Recheck/Abnormal Lab/Rx Stated complaint: Chills,Headache Time Seen by Provider: 05/11/23 10:41 Source: patient, RN notes reviewed Mode of arrival: ambulatory Limitations: no limitations - History of Present Illness Initial comments: 68-year-old female presents emergency department chief complaint of fever or chills. Patient states that she not felt well last week or so. She does go to dialysis states that her work has been coming back within her normal limits. Patient states that she just keeps having recurrent chills possible fever. Patient denies any significant cough cold-like symptoms. Patient states she does not make any urine. Patient denies any neck pain or neck stiffness no complaints of headache currently. - Related Data Home Medications Medication Instructions Recorded Confirmed Aspirin 325 mg PO DAILY@1600 07/28/19 03/14/23 Levothyroxine Sodium [Synthroid] 150 mcg PO MOTUWETHFRSA 03/25/20 03/14/23 carvediloL 25 mg PO BID 08/16/21 03/14/23 Ergocalciferol [Vitamin D2 (1250 1,250 mcg PO GILLESPIE 12/20/21 03/14/23 Mcg = 13962 Iu)] Levothyroxine Sodium [Synthroid] 225 mcg PO GILLESPIE 12/20/21 03/14/23 Insulin Glargine,Hum.rec.anlog 33 units SQ BID 07/21/22 03/14/23 [Lantus Solostar Pen] Insulin Lispro [humaLOG Kwikpen] 23 unit SQ TID-W/MEALS 07/21/22 03/14/23 Nephro-Nav 1 cap PO DAILY@1600 07/21/22 03/14/23 Sevelamer [Renvela] 1,600 mg PO TID-W/MEALS 10/17/22 03/14/23 Simvastatin [Zocor] 40 mg PO HS 10/17/22 03/14/23 Omeprazole [PriLOSEC] 20 mg PO DAILY 01/09/23 03/14/23 Allergies Allergy/AdvReac Type Severity Reaction Status Date / Time No Known Allergies Allergy Verified 05/11/23 10:47 Review of Systems ROS Statement: Those systems with pertinent positive or pertinent negative responses have been documented in the HPI. ROS Other: All systems not noted in ROS Statement are negative. 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 6 years. Last Myocardial Infarction Date:: Unknown History of Any Multi-Drug Resistant Organisms: None Reported Past Surgical History: Section, Hysterectomy, Orthopedic Surgery Additional Past Surgical History / Comment(s): Had open thrombectomy left axillary graft on 12-21-21,BONE TUMOR REMOVED FROM LT FINGER AND REPLACED WITH BONE FROM ELBOW. DIALYSIS FISTULA rt arm-old, lasik rt eye surgery, right upper ext. left AV graft revision 03-31-20 Past Anesthesia/Blood Transfusion Reactions: Postoperative Nausea & Vomiting (PONV) Past Psychological History: No Psychological Hx Reported Smoking Status: Never smoker Past Alcohol Use History: None Reported Past Drug Use History: None Reported - Past Family History Mother Family Medical History: Cancer Brother(s) Family Medical History: Cancer General Exam Limitations: no limitations General appearance: alert, in no apparent distress Head exam: Present: atraumatic, normocephalic, normal inspection Eye exam: Present: normal appearance, PERRL, EOMI. Absent: scleral icterus, conjunctival injection, periorbital swelling ENT exam: Present: normal exam, normal oropharynx, mucous membranes moist Neck exam: Present: normal inspection, full ROM. Absent: tenderness, m eningismus, lymphadenopathy Respiratory exam: Present: normal lung sounds bilaterally. Absent: respiratory distress, wheezes, rales, rhonchi, stridor Cardiovascular Exam: Present: regular rate, normal rhythm, normal heart sounds. Absent: systolic murmur, diastolic murmur, rubs, gallop, clicks GI/Abdominal exam: Present: soft, normal bowel sounds. Absent: distended, tenderness, guarding, rebound, rigid Course Vital Signs 05/11/23 10:43 Temperature 99.7 F H Pulse Rate 82 Respiratory 18 Rate Blood Pressure 119/66 O2 Sat by Pulse 98 Oximetry EKG Findings - EKG Comments: EKG Findings:: EKG performed at 14: 52 sinus rhythm rate of 77 MA 202 QRS 111 QT/QTc 414/446 - EKG Results: EKG: interpreted by TREVOR Medical Decision Making - Medical Decision Making Was pt. sent in by a medical professional or institution (, SUDHA, PARTS DRIVER, urgent care, hospital, or retirement...) When possible be specific @ -[No] Did you speak to anyone other than the patient for history (EMS, parent, family, police, friend...)? What history was obtained from this source @ -[No] Did you review nursing and triage notes (agree or disagree)? Why? @ -[I reviewed and agree with nursing and triage notes] Were old charts reviewed (outside hosp., previous admission, EMS record, old EKG, old radiological studies, urgent care reports/EKG's, retirement records)? Report findings @ -[No old charts were reviewed] Differential Diagnosis (chest pain, altered mental status, abdominal pain women, abdominal pain men, vaginal bleeding, weakness, fever, dyspnea, syncope, headache, dizziness, GI bleed, back pain, seizure, CVA, palpatations, mental health, musculoskeletal)? @ -[Differential Weakness: Hypoglycemia, shock, sepsis, hyponatremia, anemia, infection, CT, ETOH, adverse medicine reaction, overdose, stroke, this is not meant to be an all-inclusive list. EKG interpreted by me (3pts min.). @ -[As above] X-rays interpreted by me (1pt min.). @ -[Chest x-ray shows pulmonary edema CT interpreted by me (1pt min.). @ -[None done] U/S interpreted by me (1pt. min.). @ -[None done] What testing was considered but not performed or refused? (CT, X-rays, U/S, labs)? Why? @ -[None] What meds were considered but not given or refused? Why? @ -[None] Did you discuss the management of the patient with other professionals (greg bland i.e. , SUDHA, PARTS DRIVER, lab, RT, psych nurse, social insurance specialist, immigration lawyer, teacher, personnel officer, residential case manager)? Give summary @ -Dr. Deras for admission secondary hypokalemia with ESRD on dialysis along with persistent fevers, chills and leukocytosis Was smoking cessation discussed for >3mins.? @ -[No] Was critical care preformed (if so, how long)? @ -[No] Were there social determinants of health that impacted care today? How? (Homelessness, low income, unemployed, alcoholism, drug addiction, t ransportation, low edu. Level, literacy, decrease access to med. care, penitentiary, rehab)? @ -[No] Was there de-escalation of care discussed even if they declined (Discuss DNR or withdrawal of care, Hospice)? DNR status @ -[No] What co-morbidities impacted this encounter? (DM, HTN, Smoking, COPD, CAD, Can cer, CVA, ARF, Chemo, Hep., AIDS, mental health diagnosis, sleep apnea, morbid obesity)? @ -renal disease Was patient admitted / discharged? Hospital course, mention meds given and route, prescriptions, significant lab abnormalities, going to OR and other pertinent info. @ -Admitted patient has mild hyperkalemia requiring dialysis. Patient missed dialysis today. Patient also has had persistent possible fever, chills and leukocytosis without obvious source patient will have blood cultures drawn. Patient will consult to infectious disease, neurology Undiagnosed new problem with uncertain prognosis? @ -[No] Drug Therapy requiring intensive monitoring for toxicity (Heparin, Nitro, Insulin, Cardizem)? @ -[No] Were any procedures done? @ -[No] Diagnosis/symptom? @ -[Hyperkalemia, ESRD, leukocytosis, fever Acute, or Chronic, or Acute on Chronic? @ -Acute Uncomplicated (without systemic symptoms) or Complicated (systemic symptoms)? @ -Complicated Side effects of treatment? @ -[No] Exacerbation, Progression, or Severe Exacerbation? @ -[No] Poses a threat to life or bodily function? How? (Chest pain, USA, CT, pneumonia, PE, COPD, DKA, ARF, appy, cholecystitis, CVA, Diverticulitis, Homicidal, Suicidal, threat to staff... and all critical care pts) @ -Yes hyperkalemia with need for dialysis - Lab Data Result diagrams: 05/11/23 12:14 05/11/23 12:14 Lab Results 05/11/23 05/11/23 05/11/23 Range/Units 12:14 12:14 12:14 WBC 18.1 H (3.8-10.6) k/uL RBC 2.80 L (3.80-5.40) m/uL Hgb 9.4 L D (11.4-16.0) gm/dL Hct 28.0 L (34.0-46.0) % MCV 100.1 H D (80.0-100.0) fL MCH 33.7 (25.0-35.0) pg MCHC 33.6 (31.0-37.0) g/dL RDW 15.4 (11.5-15.5) % Plt Count 213 (150-450) k/uL MPV 9.3 Neutrophils % 93 % Lymphocytes % 4 % Monocytes % 2 % Eosinophils % 0 % Basophils % 0 % Neutrophils # 16.8 H (1.3-7.7) k/uL Lymphocytes # 0.8 L (1.0-4.8) k/uL Monocytes # 0.3 (0-1.0) k/uL Eosinophils # 0.0 (0-0.7) k/uL Basophils # 0.0 (0-0.2) k/uL Macrocytosis Slight Sodium 136 L (137-145) mmol/L Potassium 5.6 H (3.5-5.1) mmol/L Chloride 99 (98-107) mmol/L Carbon Dioxide 25 (22-30) mmol/L Anion Gap 12 mmol/L BUN 22 H (7-17) mg/dL Creatinine 6.07 H (0.52-1.04) mg/dL Est GFR (CKD-EPI)AfAm 7 (>60 ml/min/1.73 sqM) Est GFR (CKD-EPI)NonAf 6 (>60 ml/min/1.73 sqM) Glucose 308 H (74-99) mg/dL Calcium 8.6 (8.4-10.2) mg/dL Total Bilirubin 1.1 (0.2-1.3) mg/dL AST 150 H (14-36) U/L ALT 74 H (4-34) U/L Alkaline Phosphatase 133 H (38-126) U/L Total Protein 7.1 (6.3-8.2) g/dL Albumin 3.4 L (3.5-5.0) g/dL Influenza Type A (PCR) Not Detected (Not Detectd) Influenza Type B (PCR) Not Detected (Not Detectd) RSV (PCR) Not Detected (Not Detectd) SARS-CoV-2 (PCR) Not Detected (Not Detectd) Disposition Clinical Impression: End stage renal disease, Fever, Leukocytosis, Hyperkalemia Disposition: ADMITTED IP TO THIS HOSP Condition: Fair Time of Disposition: 13:41
[2023-05-11 12:48] LABS: MCV 100.1 fL (80.0-100.0)
--- NOTE | 2023-05-11 12:59 | XR ---
EXAMINATION TYPE: XR chest 2V DATE OF EXAM: 05/11/2023 12:50 PM CLINICAL INDICATION:Female, 68 years old with history of fever; [facility] COMPARISON: Chest radiographs from 10/18/2022 TECHNIQUE: XR chest 2V Frontal and lateral views of the chest. FINDINGS: Lungs/Pleura: There is no evidence of pleural effusion, focal consolidation, or pneumothorax. Pulmonary vascularity: Pulmonary vascular congestion. Heart/mediastinum: Cardiomediastinal silhouette is enlarged and stable. Musculoskeletal: No acute osseous pathology. IMPRESSION: Cardiomegaly and mild pulmonary vascular congestion. Correlate with BNP for congestive heart failure.
[2023-05-11 13:03] LABS: Potassium 5.6 mmol/L (3.5-5.1)
[2023-05-11] MEDS ORDERED: NALOXONE 0.4 MG/ML 1 ML VIAL IV PRN (14:06)
[2023-05-11] MEDS ORDERED: DEXTROSE 50% SYRINGE 50 ML IVP PRN ×2 (14:51)
[2023-05-11 16:03] LABS: Glucose,Whole Blood 257 mg/dL (70-110)
--- NOTE | 2023-05-11 16:46 | US ---
EXAMINATION TYPE: US abdomen limited DATE OF EXAM: 05/11/2023 COMPARISON: NONE CLINICAL INDICATION: Female, 68 years old with history of Elevated LFTs; TECHNIQUE: Multiple sonographic images of the right upper quadrant are obtained. FINDINGS: EXAM MEASUREMENTS: Liver Length: 20.6 cm Gallbladder Wall: 0.3 cm CBD: 0.5 cm Difficult and limited study due to morbidly obese patient, exam stopped before scanning right kidne y due to patient started getting sick Pancreas: obscured by overlying midline bowel gas Liver: scanned intercostally, visualized portions appear wnl Gallbladder: cholelithiasis, distended gallbladder lumen. Was within normal limits for size. Evidence for sonographic Alvarez's sign: no CBD: visualized portions wnl Right Kidney: not imaged IMPRESSION: 1. No evidence for acute process. 2. Distended gallbladder with cholelithiasis.
--- NOTE | 2023-05-11 16:50 | US ---
EXAMINATION TYPE: US axilla LT DATE OF EXAM: 05/11/2023 COMPARISON: NONE CLINICAL INDICATION: Female, 68 years old with history of Swelling; Technique: Grayscale imaging with color Doppler imaging of the left axilla palpable abnormality. FINDINGS: Scanned left axilla at patient's palpable lump: 3.4 x 2.2cm superficial vascular hypoechoic area. IMPRESSION: Superficial vascular masslike area, findings could represent a mass such as a soft tissue hemangioma versus phlegmonous change with hyperemia. Consider evaluation with MRI.
[2023-05-11] MEDS: INSULIN ASPART (NovoLOG) 100 UNIT/ML VIAL SQ SCH (17:59)
[2023-05-11] MEDS: ACETAMINOPHEN TAB 325 MG TAB PO PRN (18:31)
[2023-05-11 19:56] LABS: Glucose,Whole Blood 221 mg/dL (70-110)
[2023-05-12 05:23] LABS: Glucose,Whole Blood 142 mg/dL (70-110)
--- NOTE | 2023-05-12 10:08 | P.HPIM ---
History of Present Illness H&P Date: 05/11/23 History of present illness; patient 68-year-old lady with past medical significant for ESRD on dialysis, diabetes mellitus, hyperlipidemia presented to the ER for complaint of chills and malaise. Patient stated for the last 3 days she has been having chills, patient did not check her temperature at home. Patient was complaining of lethargy and malaise. Patient also complains of dry heaves. Patient could not sleep last night because of chills. Patient was supposed to go for dialysis today but she missed and decided to come to the ER. Denies any chest pain or shortness of breath. There is no complaint of any cough. Denies any nausea vomiting abdominal pain. Denies any urinary symptoms, was treated for UTI 1 month back. Because of the symptoms, presented to the ER Initial lab work done in the ER showed WBC 18.1, hemoglobin 9.4, platelet count 213, sodium 136, potassium 5.6, BUN 22, creatinine 6.07 AST 150, ALT 74, Influenza A not detected Influenza B not detected RSV not detected COVID-19 not detected EKG done in the ER showed heart rate of , no ST segment elevation or depression seen, no T-wave inversions seen. Chest x-ray done in the ER showed cardiomegaly and mild pulmonary congestion Patient admitted to internal medicine service REVIEW OF SYSTEMS: CONSTITUTIONAL: As mentioned above. HEENT: No recent visual problems or hearing problems. Denied any sore throat. CARDIOVASCULAR: No chest pain, orthopnea, PND, no palpitations, no syncope. PULMONARY: No shortness of breath, no cough, no hemoptysis. GASTROINTESTINAL: As mentioned above NEUROLOGICAL: No headaches, no weakness, no numbness. HEMATOLOGICAL: Denies any bleeding or petechiae. GENITOURINARY: Denies any burning micturition, frequency, or urgency. MUSCULOSKELETAL/RHEUMATOLOGICAL: Denies any joint pain, swelling, or any muscle pain. ENDOCRINE: Denies any polyuria or polydipsia. The rest of the 14-point review of systems is negative. PHYSICAL EXAMINATION: GENERAL: The patient is alert and oriented x3, not in any acute distress. Well developed, well nourished. HEENT: Pupils are round and equally reacting to light. EOMI. No scleral icterus. No conjunctival pallor. Normocephalic, atraumatic. No pharyngeal erythema. No thyromegaly. CARDIOVASCULAR: S1 and S2 present. No murmurs, rubs, or gallops. PULMONARY: Chest is clear to auscultation, no wheezing or crackles. ABDOMEN: Soft, nontender, nondistended, normoactive bowel sounds. No palpable organomegaly. MUSCULOSKELETAL: No joint swelling or deformity. Swelling noticed in left axilla, no redness EXTREMITIES: No cyanosis, clubbing, or pedal edema. NEUROLOGICAL: Gross neurological examination did not reveal any focal deficits. SKIN: No rashes. Assessment and plan Chills Left axillary swelling Elevated LFTs Hypothyroidism ESRD Hypertension Monitor vital signs Monitor CBC Monitor CMP Ordered blood cultures Order CRP Order ESR Ordered Pro-Chris Ordered ultrasound of left axilla Ordered ultrasound abdominal Hold off antibiotics at this time. Resume home meds Consult nephrology Consult ID Labs and medication were reviewed.. Continue same treatment. Continue with symptomatic treatment. Resume home medication. Monitor labs and vitals. DVT and GI prophylaxis. Further recommendations as per clinical course of the p atient Dictation was produced using [employer] dictation software. please excuse any grammatical, word or spelling errors. 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 6 years. Last Myocardial Infarction Date:: Unknown History of Any Multi-Drug Resistant Organisms: None Reported Past Surgical History: Section, Hysterectomy, Orthopedic Surgery Additional Past Surgical History / Comment(s): Had open thrombectomy left a xillary graft on 12-21-21,BONE TUMOR REMOVED FROM LT FINGER AND REPLACED WITH BONE FROM ELBOW. DIALYSIS FISTULA rt arm-old, lasik rt eye surgery, right upper ext. left AV graft revision 03-31-20 Past Anesthesia/Blood Transfusion Reactions: Postoperative Nausea & Vomiting (PONV) Past Psychological History: No Psychological Hx Reported Smoking Status: Never smoker Past Alcohol Use History: None Reported Past Drug Use History: None Reported - Past Family History Mother Family Medical History: Cancer Brother(s) Family Medical History: Cancer Medications and Allergies Home Medications Medication Instructions Recorded Confirmed Type Aspirin 325 mg PO DAILY@1600 07/28/19 03/14/23 History Levothyroxine Sodium [Synthroid] 150 mcg PO MOTUWETHFRSA 03/25/20 03/14/23 History carvediloL 25 mg PO BID 08/16/21 03/14/23 History Ergocalciferol [Vitamin D2 (1250 1,250 mcg PO GILLESPIE 12/20/21 03/14/23 History Mcg = 60251 Iu)] Levothyroxine Sodium [Synthroid] 225 mcg PO GILLESPIE 12/20/21 03/14/23 History Insulin Glargine,Hum.rec.anlog 33 units SQ BID 07/21/22 03/14/23 History [Lantus Solostar Pen] Insulin Lispro [humaLOG Kwikpen] 23 unit SQ TID-W/MEALS 07/21/22 03/14/23 History Nephro-Nav 1 cap PO DAILY@1600 07/21/22 03/14/23 History Sevelamer [Renvela] 1,600 mg PO TID-W/MEALS 10/17/22 03/14/23 History Simvastatin [Zocor] 40 mg PO HS 10/17/22 03/14/23 History Omeprazole [PriLOSEC] 20 mg PO DAILY 01/09/23 03/14/23 History Allergies Allergy/AdvReac Type Severity Reaction Status Date / Time No Known Allergies Allergy Verified 05/11/23 10:47 Physical Exam Vitals: Vital Signs Temp Pulse Resp BP Pulse Ox 05/11/23 10:43 99.7 F H 82 18 119/66 98 Intake and Output 05/10/23 05/11/23 05/11/23 22:59 06:59 14:59 Other: Weight 136.078 kg Results CBC & Chem 7: 05/11/23 12:14 05/11/23 12:14 Labs: Abnormal Lab Results - Last 24 Hours (Table) 05/11/23 05/11/23 Range/Units 12:14 12:14 WBC 18.1 H (3.8-10.6) k/uL RBC 2.80 L (3.80-5.40) m/uL Hgb 9.4 L D (11.4-16.0) gm/dL Hct 28.0 L (34.0-46.0) % MCV 100.1 H D (80.0-100.0) fL Neutrophils # 16.8 H (1.3-7.7) k/uL Lymphocytes # 0.8 L (1.0-4.8) k/uL Sodium 136 L (137-145) mmol/L Potassium 5.6 H (3.5-5.1) mmol/L BUN 22 H (7-17) mg/dL Creatinine 6.07 H (0.52-1.04) mg/dL Glucose 308 H (74-99) mg/dL AST 150 H (14-36) U/L ALT 74 H (4-34) U/L Alkaline Phosphatase 133 H (38-126) U/L Albumin 3.4 L (3.5-5.0) g/dL
[2023-05-12 10:10] LABS: Basophils % (A) 0 %; Eosinophils # (A) 0.1 k/uL (0-0.7); Eosinophils % (A) 1 %; HGB 8.6 gm/dL (11.4-16.0); Lymphocytes # (A) 1.3 k/uL (1.0-4.8); Lymphocytes % (A) 15 %; MCH 33.3 pg (25.0-35.0); MCHC 33.1 g/dL (31.0-37.0); MCV 100.6 fL (80.0-100.0); Macrocytosis Slight; Mean Platelet Volume 9.1; Monocytes # (A) 0.3 k/uL (0-1.0); Monocytes % (A) 3 %; Neutrophils # (A) 7.3 k/uL (1.3-7.7); Neutrophils % (A) 80 %; Platelet Count 176 k/uL (150-450); RBC 2.58 m/uL (3.80-5.40); RDW 15.4 % (11.5-15.5); WBC 9.1 k/uL (3.8-10.6)
[2023-05-12] MEDS ORDERED: VANCOMYCIN IV PER PHARMACY 1 EACH MISC MISCELLANE PRN (10:10)
[2023-05-12] MEDS: ONDANSETRON 4 MG/2 ML VIAL IVP PRN (10:28)
[2023-05-12] MEDS: carvediloL 12.5 MG TAB PO SCH (10:29)
[2023-05-12] MEDS: PANTOPRAZOLE 40 MG TABLET PO SCH (10:29)
[2023-05-12] MEDS: LEVOTHYROXINE 75 MCG TAB PO SCH (10:29)
[2023-05-12] MEDS: INSULIN DETEMIR (LEVEMIR) 100 UNIT/ML SYR SQ SCH (10:32)
[2023-05-12] MEDS: ERGOCALCIFEROL 1,250 MCG (50,000 IU) CAPSULE PO SCH (10:33)
[2023-05-12] MEDS: VANCOMYCIN 2,000 MG in SODIUM CHLORIDE 0.9% 500 ML 500 ML IVPB ONE (10:34)
[2023-05-12 10:44] LABS: African American GFR (CKD) 6 (>60 ml/min/1.73 sqM); Anion Gap 5 mmol/L; Blood Urea Nitrogen 33 mg/dL (7-17); Calcium 8.6 mg/dL (8.4-10.2); Carbon Dioxide 32 mmol/L (22-30); Chloride 100 mmol/L (98-107); Glucose 199 mg/dL (74-99); Non-African American GFR(CKD) 5 (>60 ml/min/1.73 sqM); Potassium 4.3 mmol/L (3.5-5.1); Sodium 137 mmol/L (137-145)
--- NOTE | 2023-05-12 11:41 | P.NPCON ---
History of Present Illness - Reason for Consult end stage renal disease - History of Present Illness Patient is a 68-year-old female with end-stage renal disease on hemodialysis on a Saturday schedule. She is admitted to the hospital with complaints of fever on and off for past 3 to 4 days. Patient has also had increased weakness. She complained of nausea and vomiting as well. Patient has had drainage in her left arm. No complaints of pain. No complaints of cough or shortness of breath. Patient missed her hemodialysis yesterday on 05/11/2023. Potassium was elevated at 5.6 and it is 4.3 today. 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 6 years. Last Myocardial Infarction Date:: Unknown History of Any Multi-Drug Resistant Organisms: None Reported Past Surgical History: Section, Hysterectomy, Orthopedic Surgery Additional Past Surgical History / Comment(s): Had open thrombectomy left axillary graft on 12-21-21,BONE TUMOR REMOVED FROM LT FINGER AND REPLACED WITH BONE FROM ELBOW. DIALYSIS FISTULA rt arm-old, lasik rt eye surgery, right upper ext. left AV graft revision 03-31-20 Past Anesthesia/Blood Transfusion Reactions: Postoperative Nausea & Vomiting (PONV) Past Psychological History: No Psychological Hx Reported Smoking Status: Never smoker Past Alcohol Use History: None Reported Past Drug Use History: None Reported - Past Family History Mother Family Medical History: Cancer Brother(s) Family Medical History: Cancer Medications and Allergies Home Medications Medication Instructions Recorded Confirmed Type Aspirin 325 mg PO DAILY@1600 07/28/19 05/11/23 History Levothyroxine Sodium [Synthroid] 150 mcg PO MOTUWETHFRSA 03/25/20 05/11/23 History carvediloL 25 mg PO BID 08/16/21 05/11/23 History Ergocalciferol [Vitamin D2 (1250 1,250 mcg PO GILLESPIE 12/20/21 05/11/23 History Mcg = 27425 Iu)] Levothyroxine Sodium [Synthroid] 225 mcg PO GILLESPIE 12/20/21 05/11/23 History Insulin Glargine,Hum.rec.anlog 23 units SQ BID 07/21/22 05/11/23 History [Lantus Solostar Pen] Insulin Lispro [humaLOG Kwikpen] 22 unit SQ TID-W/MEALS 07/21/22 05/11/23 History Nephro-Nav 1 cap PO DAILY@1600 07/21/22 05/11/23 History Sevelamer [Renvela] 1,600 mg PO TID-W/MEALS 10/17/22 05/11/23 History Simvastatin [Zocor] 40 mg PO HS 10/17/22 05/11/23 History Omeprazole [PriLOSEC] 20 mg PO DAILY 01/09/23 05/11/23 History Allergies Allergy/AdvReac Type Severity Reaction Status Date / Time No Known Allergies Allergy Verified 05/11/23 18:29 Physical Exam Vitals: Vital Signs Temp Pulse Resp BP Pulse Ox 05/12/23 08:00 98.4 F 62 16 160/72 96 05/12/23 01:03 99.0 F 65 13 128/73 99 05/11/23 20:28 99.5 F 72 13 137/63 92 L 05/11/23 18:09 100.4 F H 73 16 147/68 95 Intake and Output 05/11/23 05/12/23 05/12/23 22:59 06:59 14:59 Intake Total 236 Balance 236 Intake: Oral 236 Other: Weight 136.078 kg Patient is awake, comfortable, no acute distress Examination of the heart S1 and S2 Examination of the lungs bilateral breath sounds are heard Abdomen is soft nontender obese No significant drainage or abscess noted in the left axillary region. AV graft in the right arm appears intact with no erythema. BARGAIN TABLE CLERK exam grossly intact Results - Lab Results Most recent lab results Calcium 8.6 mg/dL (8.4-10.2) 05/12/23 09:34 05/12/23 09:34 05/12/23 09:34 Assessment and Plan Assessment: 1. End-stage renal disease on hemodialysis on a Saturday schedule via right arm AV graft. Patient will be dialyzed tomorrow as she missed her treatment yesterday. 2. Low-grade fever currently being worked up. Possibly related to hidradenitis left axilla. Currently maintained on antibiotics 3. CKD mineral bone disorder Plan: Hemodialysis in a.m. and then repeat again on 05/14/2023 as patient is maintained on a Saturday schedule. Continue antibiotics Continue with phosphate binders Thank you for the consultation. We will continue to follow the patient with you during her hospitalization.
[2023-05-12 11:48] LABS: Glucose,Whole Blood 219 mg/dL (70-110)
[2023-05-12] MEDS: INSULIN ASPART (NovoLOG) 100 UNIT/ML VIAL SQ SCH (11:49)
[2023-05-12] MEDS: SEVELAMER 800 MG TAB PO SCH (11:49)
--- NOTE | 2023-05-12 12:51 | P.PN ---
Subjective Progress Note Date: 05/12/23 patient 68-year-old lady with past medical significant for ESRD on dialysis, diabetes mellitus, hyperlipidemia presented to the ER for complaint of chills and malaise. Patient stated for the last 3 days she has been having chills, patient did not check her temperature at home. Patient was complaining of lethargy and malaise. Patient also complains of dry heaves. Patient could not sleep last night because of chills. Patient was supposed to go for dialysis today but she missed and decided to come to the ER. Denies any chest pain or shortness of breath. There is no complaint of any cough. Denies any nausea vomiting abdominal pain. Denies any urinary symptoms, was treated for UTI 1 month back. Because of the symptoms, presented to the ER Initial lab work done in the ER showed WBC 18.1, hemoglobin 9.4, platelet count 213, sodium 136, potassium 5.6, BUN 22, creatinine 6.07 AST 150, ALT 74, Influenza A not detected Influenza B not detected RSV not detected COVID-19 not detected EKG done in the ER showed heart rate of , no ST segment elevation or depression seen, no T-wave inversions seen. Chest x-ray done in the ER showed cardiomegaly and mild pulmonary congestion Patient admitted to internal medicine service 05/12. Patient seen and examined. Redness in left axilla has improved, no pain in the left axilla. Denies any further episodes of chills. REVIEW OF SYSTEMS: CONSTITUTIONAL: No fever, no malaise,. CARDIOVASCULAR: No chest pain, no palpitations, no syncope. PULMONARY: No shortness of breath, no cough, GASTROINTESTINAL: No diarrhea, no nausea, no vomiting, no abdominal pain. NEUROLOGICAL: No headaches, no weakness, PHYSICAL EXAMINATION: GENERAL: The patient is alert and oriented x3, not in any acute distress. Well developed, well nourished. HEENT: Pupils are round and equally reacting to light. EOMI. No scleral icterus. No conjunctival pallor. Normocephalic, atraumatic. No pharyngeal erythema. No thyromegaly. CARDIOVASCULAR: S1 and S2 present. No murmurs, rubs, or gallops. PULMONARY: Chest is clear to auscultation, no wheezing or crackles. ABDOMEN: Soft, nontender, nondistended, normoactive bowel sounds. No palpable organomegaly. MUSCULOSKELETAL: No joint swelling or deformity. EXTREMITIES: No cyanosis, clubbing, or pedal edema. NEUROLOGICAL: Gross neurological examination did not reveal any focal deficits. SKIN: No rashes. Assessment and plan Left axillary cellulitis Elevated LFTs Hypothyroidism ESRD Hypertension Monitor vital signs Monitor CBC Monitor CMP Ordered blood cultures Ultrasound axilla done superficial vascular masslike area, Represent a mass such as soft tissue hemangioma versus phlegmonous change with hyperemia Ultrasound abdomen done showed distended gallbladder with cholelithiasis, no evidence for acute process Start vancomycin pharmacy dose ID following Nephrology following Labs and medication were reviewed.. Continue same treatment. Continue with symptomatic treatment. Resume home medication. Monitor labs and vitals. DVT and GI prophylaxis. Further recommendations as per clinical course of the patie nt Dictation was produced using [employer] dictation software. please excuse any grammatical, word or spelling errors. Objective - Vital Signs Vital signs: Vital Signs Temp 98.4 F 05/12/23 08:00 Pulse 62 05/12/23 08:00 Resp 16 05/12/23 08:00 BP 160/72 05/12/23 08:00 Pulse Ox 96 05/12/23 08:00 FiO2 Intake & Output 05/11/23 05/12/23 05/12/23 18:59 06:59 18:59 Intake Total 236 Balance 236 Weight 136.078 kg Intake: Oral 236 - Labs CBC & Chem 7: 05/12/23 09:34 05/12/23 09:34 Labs: Abnormal Lab Results - Last 24 Hours (Table) 05/11/23 05/11/23 05/11/23 Range/Units 12:14 12:14 16:02 WBC 18.1 H (3.8-10.6) k/uL RBC 2.80 L (3.80-5.40) m/uL Hgb 9.4 L D (11.4-16.0) gm/dL Hct 28.0 L (34.0-46.0) % MCV 100.1 H D (80.0-100.0) fL Neutrophils # 16.8 H (1.3-7.7) k/uL Lymphocytes # 0.8 L (1.0-4.8) k/uL Sodium 136 L (137-145) mmol/L Potassium 5.6 H (3.5-5.1) mmol/L BUN 22 H (7-17) mg/dL Creatinine 6.07 H (0.52-1.04) mg/dL Glucose 308 H (74-99) mg/dL POC Glucose (mg/dL) 257 H (70-110) mg/dL Hemoglobin A1c (<=6.0) % AST 150 H (14-36) U/L ALT 74 H (4-34) U/L Alkaline Phosphatase 133 H (38-126) U/L C-Reactive Protein (<1.0) mg/dL Albumin 3.4 L (3.5-5.0) g/dL Procalcitonin (0.02-0.09) ng/mL 05/11/23 05/11/23 05/11/23 Range/Units 16:20 16:20 19:55 WBC (3.8-10.6) k/uL RBC (3.80-5.40) m/uL Hgb (11.4-16.0) gm/dL Hct (34.0-46.0) % MCV (80.0-100.0) fL Neutrophils # (1.3-7.7) k/uL Lymphocytes # (1.0-4.8) k/uL Sodium (137-145) mmol/L Potassium (3.5-5.1) mmol/L BUN (7-17) mg/dL Creatinine (0.52-1.04) mg/dL Glucose (74-99) mg/dL POC Glucose (mg/dL) 221 H (70-110) mg/dL Hemoglobin A1c (<=6.0) % AST (14-36) U/L ALT (4-34) U/L Alkaline Phosphatase (38-126) U/L C-Reactive Protein 8.8 H (<1.0) mg/dL Albumin (3.5-5.0) g/dL Procalcitonin 1.30 H (0.02-0.09) ng/mL 05/12/23 05/12/23 Range/Units 05:21 05:22 WBC (3.8-10.6) k/uL RBC (3.80-5.40) m/uL Hgb (11.4-16.0) gm/dL Hct (34.0-46.0) % MCV (80.0-100.0) fL Neutrophils # (1.3-7.7) k/uL Lymphocytes # (1.0-4.8) k/uL Sodium (137-145) mmol/L Potassium (3.5-5.1) mmol/L BUN (7-17) mg/dL Creatinine (0.52-1.04) mg/dL Glucose (74-99) mg/dL POC Glucose (mg/dL) 142 H (70-110) mg/dL Hemoglobin A1c 6.5 H (<=6.0) % AST (14-36) U/L ALT (4-34) U/L Alkaline Phosphatase (38-126) U/L C-Reactive Protein (<1.0) mg/dL Albumin (3.5-5.0) g/dL Procalcitonin (0.02-0.09) ng/mL
[2023-05-12 16:56] LABS: Glucose,Whole Blood 190 mg/dL (70-110)
[2023-05-12] MEDS: ASPIRIN 325 MG TAB PO SCH (17:23)
[2023-05-12] MEDS: FOLIC ACID-VIT B COMPLEX-VIT C 1 CAP PO SCH (17:23)
[2023-05-12 20:52] LABS: Glucose,Whole Blood 152 mg/dL (70-110)
[2023-05-13 04:25] LABS: Glucose,Whole Blood 49 mg/dL (70-110)
[2023-05-13 05:02] LABS: Glucose,Whole Blood 67 mg/dL (70-110)
[2023-05-13 05:37] LABS: Glucose,Whole Blood 79 mg/dL (70-110)
[2023-05-13] MEDS: LEVOTHYROXINE 75 MCG TAB PO SCH (06:13)
--- NOTE | 2023-05-13 08:20 | P.CONS ---
History of Present Illness - Reason for Consult Consult date: 05/12/23 Fever Requesting physician: Germán Deras - Chief Complaint Fever and chills x 1 day - History of Present Illness Patient is a 68-year-old female with a past medical history significant for diabetes mellitus hypertension hyperlipidemia [place] CVA TIA end- stage renal disease on dialysis presenting to the hospital yesterday afternoon for evaluation of fever and chills and the patient has felt weak patient symptoms started the day of presentation to the hospital however weakness has been going on for a day or 2 started having chills patient denies having any headache or URI symptoms patient denies having any chest pain or shortness with occasional cough some nausea but no vomiting denies any abdominal pain and no diarrhea and the patient does not make any urine no urinary symptoms patient noticed having some drainage from the left maxillary area the day of prese ntation to the hospital has been complaining of some dull aching pain mild in intensity to the left axilla and apparently the patient did have a previous history of infection to the armpit patient on presentation to the hospital did have a low-grade fever of 100.4 F patient was not tachycardic hypotensive or hypoxic did have white count of 18.1 on admission BUN and creatinine are elevated l liver enzymes mildly elevated influenza RSV and COVID testing was negative blood cultures obtained currently pending patient was started on vancomycin infectious disease was consulted for further management of antibiotic therapy Review of Systems Positive point and negatives has been mentioned in the HPI, complete review of systems was performed and all other systems are negative Past Medical History Past Medical History: CVA/TIA, Diabetes Mellitus, Dialysis, Eye Disorder, GERD/Reflux, Hyperlipidemia, Hypertension, Myocardial Infarction ([place]), Osteoarthritis (OA), Renal Disease, Sleep Apnea/CPAP/BIPAP, Thyroid Disorder Additional Past Medical History / Comment(s): Legally blind, 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 6 years. Last Myocardial Infarction Date:: Unknown History of Any Multi-Drug Resistant Organisms: None Reported Past Surgical History: Section, Hysterectomy, Orthopedic Surgery Additional Past Surgical History / Comment(s): Had open thrombectomy left axillary graft on 12-21-21,BONE TUMOR REMOVED FROM LT FINGER AND REPLACED WITH BONE FROM ELBOW. DIALYSIS FISTULA rt arm-old, lasik rt eye surgery, right upper ext. left AV graft revision 03-31-20 Past Anesthesia/Blood Transfusion Reactions: Postoperative Nausea & Vomiting (PONV) Past Psychological History: No Psychological Hx Reported Smoking Status: Never smoker Past Alcohol Use History: None Reported Past Drug Use History: None Reported - Past Family History Mother Family Medical History: Cancer Brother(s) Family Medical History: Cancer Medications and Allergies Home Medications Medication Instructions Recorded Confirmed Type Aspirin 325 mg PO DAILY@1600 07/28/19 05/11/23 History Levothyroxine Sodium [Synthroid] 150 mcg PO MOTUWETHFRSA 03/25/20 05/11/23 History carvediloL 25 mg PO BID 08/16/21 05/11/23 History Ergocalciferol [Vitamin D2 (1250 1,250 mcg PO GILLESPIE 12/20/21 05/11/23 History Mcg = 86530 Iu)] Levothyroxine Sodium [Synthroid] 225 mcg PO GILLESPIE 12/20/21 05/11/23 History Insulin Glargine,Hum.rec.anlog 23 units SQ BID 07/21/22 05/11/23 History [Lantus Solostar Pen] Insulin Lispro [humaLOG Kwikpen] 22 unit SQ TID-W/MEALS 07/21/22 05/11/23 History Nephro-Nav 1 cap PO DAILY@1600 07/21/22 05/11/23 History Sevelamer [Renvela] 1,600 mg PO TID-W/MEALS 10/17/22 05/11/23 History Simvastatin [Zocor] 40 mg PO HS 10/17/22 05/11/23 History Omeprazole [PriLOSEC] 20 mg PO DAILY 01/09/23 05/11/23 History Darbepoetin Duncan [Aranesp] 40 mcg SQ Q7D each 05/15/23 Rx Doxycycline Hyclate 100 mg PO BID 10 Days #20 tab 05/15/23 Rx Midodrine [ProAmatine] 10 mg PO TID tab 05/15/23 Rx Allergies Allergy/AdvReac Type Severity Reaction Status Date / Time No Known Allergies Allergy Verified 05/11/23 18:29 Physical Exam Vitals: Vital Signs Temp Pulse Resp BP Pulse Ox 05/12/23 08:00 98.4 F 62 16 160/72 96 02/25/24 01:03 99.0 F 65 13 128/73 99 05/11/23 20:28 99.5 F 72 13 137/63 92 L 05/11/23 18:09 100.4 F H 73 16 147/68 95 Intake and Output 05/11/23 05/12/23 05/12/23 22:59 06:59 14:59 Intake Total 236 Balance 236 Intake: Oral 236 Other: Weight 136.078 kg GENERAL DESCRIPTION: Elderly female lying in bed, no distress. No tachypnea or accessory muscle of respiration use. HEENT: Shows Pallor , no scleral icterus. Oral mucous membrane is dry. No pharyngeal erythema or thrush NECK: Trachea central, no thyromegaly. LUNGS: Unlabored breathing. Clear to auscultation anteriorly. No wheeze or crackle. HEART: S1, S2, regular rate and rhythm. No loud murmur ABDOMEN: Soft, no tenderness , guarding or rigidity, no organomegaly EXTREMITIES: No edema of feet. SKIN: Left axilla did have draining sinuses and purulent drainage. Which was cultured surrounding redness NEUROLOGICAL: The patient is awake, alert, oriented x3, mood and affect normal. Results CBC & Chem 7: 05/13/23 04:47 05/14/23 06:01 Labs: Abnormal Lab Results - Last 24 Hours (Table) 05/11/23 05/11/23 05/11/23 Range/Units 12:14 12:14 12:14 WBC 18.1 H (3.8-10.6) k/uL RBC 2.80 L (3.80-5.40) m/uL Hgb 9.4 L D (11.4-16.0) gm/dL Hct 28.0 L (34.0-46.0) % MCV 100.1 H D (80.0-100.0) fL Neutrophils # 16.8 H (1.3-7.7) k/uL Lymphocytes # 0.8 L (1.0-4.8) k/uL ESR 56 H (0-30) mm/Hr Sodium 136 L (137-145) mmol/L Potassium 5.6 H (3.5-5.1) mmol/L Carbon Dioxide (22-30) mmol/L BUN 22 H (7-17) mg/dL Creatinine 6.07 H (0.52-1.04) mg/dL Glucose 308 H (74-99) mg/dL POC Glucose (mg/dL) (70-110) mg/dL Hemoglobin A1c (<=6.0) % AST 150 H (14-36) U/L ALT 74 H (4-34) U/L Alkaline Phosphatase 133 H (38-126) U/L C-Reactive Protein (<1.0) mg/dL Albumin 3.4 L (3.5-5.0) g/dL Procalcitonin (0.02-0.09) ng/mL 05/11/23 05/11/23 05/11/23 Range/Units 16:02 16:20 16:20 WBC (3.8-10.6) k/uL RBC (3.80-5.40) m/uL Hgb (11.4-16.0) gm/dL Hct (34.0-46.0) % MCV (80.0-100.0) fL Neutrophils # (1.3-7.7) k/uL Lymphocytes # (1.0-4.8) k/uL ESR (0-30) mm/Hr Sodium (137-145) mmol/L Potassium (3.5-5.1) mmol/L Carbon Dioxide (22-30) mmol/L BUN (7-17) mg/dL Creatinine (0.52-1.04) mg/dL Glucose (74-99) mg/dL POC Glucose (mg/dL) 257 H (70-110) mg/dL Hemoglobin A1c (<=6.0) % AST (14-36) U/L ALT (4-34) U/L Alkaline Phosphatase (38-126) U/L C-Reactive Protein 8.8 H (<1.0) mg/dL Albumin (3.5-5.0) g/dL Procalcitonin 1.30 H (0.02-0.09) ng/mL 05/11/23 05/12/23 05/12/23 Range/Units 19:55 05:21 05:22 WBC (3.8-10.6) k/uL RBC (3.80-5.40) m/uL Hgb (11.4-16.0) gm/dL Hct (34.0-46.0) % MCV (80.0-100.0) fL Neutrophils # (1.3-7.7) k/uL Lymphocytes # (1.0-4.8) k/uL ESR (0-30) mm/Hr Sodium (137-145) mmol/L Potassium (3.5-5.1) mmol/L Carbon Dioxide (22-30) mmol/L BUN (7-17) mg/dL Creatinine (0.52-1.04) mg/dL Glucose (74-99) mg/dL POC Glucose (mg/dL) 221 H 142 H (70-110) mg/dL Hemoglobin A1c 6.5 H (<=6.0) % AST (14-36) U/L ALT (4-34) U/L Alkaline Phosphatase (38-126) U/L C-Reactive Protein (<1.0) mg/dL Albumin (3.5-5.0) g/dL Procalcitonin (0.02-0.09) ng/mL 05/12/23 05/12/23 Range/Units 09:34 09:34 WBC (3.8-10.6) k/uL RBC 2.58 L (3.80-5.40) m/uL Hgb 8.6 L (11.4-16.0) gm/dL Hct 26.0 L (34.0-46.0) % MCV 100.6 H (80.0-100.0) fL Neutrophils # (1.3-7.7) k/uL Lymphocytes # (1.0-4.8) k/uL ESR (0-30) mm/Hr Sodium (137-145) mmol/L Potassium (3.5-5.1) mmol/L Carbon Dioxide 32 H (22-30) mmol/L BUN 33 H (7-17) mg/dL Creatinine 7.56 H* (0.52-1.04) mg/dL Glucose 199 H (74-99) mg/dL POC Glucose (mg/dL) (70-110) mg/dL Hemoglobin A1c (<=6.0) % AST (14-36) U/L ALT (4-34) U/L Alkaline Phosphatase (38-126) U/L C-Reactive Protein (<1.0) mg/dL Albumin (3.5-5.0) g/dL Procalcitonin (0.02-0.09) ng/mL Assessment and Plan (1) Abscess of left axilla Status: Acute Code(s): L02.412 - CUTANEOUS ABSCESS OF LEFT AXILLA SNOMED Code(s): 15144268 (2) Sepsis Status: Acute Code(s): A41.9 - SEPSIS, UNSPECIFIED ORGANISM SNOMED Code(s): 89182303 Plan: 1patient presenting to the hospital with sepsis in this patient who did have a fever elevated white count source is likely left axillary abscess and likely from gram-positive skin emelina patient did have a ultrasound of the axilla with mention of 3.4 into 2.2 cm superficial vascular hypoechoic area concerning for spinal abscess 2-culture has been obtained from the area both aerobic and anaerobic to guide further antibiotic therapy 3-patient also have a mild elevated liver enzymes and there was evidence of distended gallbladder with cholelithiasis underlying cholecystitis not excluded 4-patient to continue with vancomycin pharmacy to dose target trough 15 5-we will check a HIDA scan We will follow on clinical condition and cultures to further adjust medication if needed Thank you for this consultation we will follow the patient along with you Dictation was produced using [employer] dictation software. please excuse any gramma tical, word or spelling errors. Time with Patient: Greater than 30
[2023-05-13 08:30] LABS: Basophils # (A) 0.03 X 10*3/uL (0.00-0.10); Basophils % (A) 0.4 %; Eosinophils # (A) 0.16 X 10*3/uL (0.04-0.35); Eosinophils % (A) 1.9 %; HCT 25.4 % (37.2-46.3); HGB 8.3 g/dL (12.0-15.0); Lymphocytes # (A) 1.55 X 10*3/uL (0.90-5.00); Lymphocytes % (A) 18.4 %; MCH 33.3 pg (27.0-32.0); MCHC 32.7 g/dL (32.0-37.0); Mean Platelet Volume 11.9 FL (9.5-12.2); Monocytes # (A) 0.55 X 10*3/uL (0.20-1.00); Monocytes % (A) 6.5 %; NRBC Per 100 WBC 0.02 X 10*3/uL (0.00-0.01); Neutrophils # (A) 6.12 X 10*3/uL (1.80-7.70); Neutrophils % (A) 72.6 %; Platelet Count 167 X 10*3/uL (140-440); RBC 2.49 X 10*6/uL (4.10-5.20); RDW 15.9 % (11.5-14.5); WBC 8.43 X 10*3/uL (4.50-10.00)
[2023-05-13 08:36] LABS: ALT 80 U/L (8-44); AST 69 U/L (13-35); Albumin 3.1 g/dL (3.8-4.9); Albumin/Globulin Ratio 0.91 Ratio (1.60-3.17); Alkaline Phosphatase 147 U/L (41-126); BUN/Creat Ratio 4.21 Ratio (12.00-20.00); Blood Urea Nitrogen 36.6 mg/dL (9.0-27.0); Calcium 8.7 mg/dL (8.7-10.3); Carbon Dioxide 27.9 mmol/L (21.6-31.8); Chloride 98 mmol/L (96-109); Globulin 3.4 g/dL (1.6-3.3); Glucose 53 mg/dL (70-110); Potassium 4.2 mmol/L (3.5-5.5); Sodium 139 mmol/L (135-145); Total Bilirubin 0.5 mg/dL (0.3-1.2); Total Protein 6.5 g/dL (6.2-8.2)
--- NOTE | 2023-05-13 11:05 | P.PN ---
Subjective Patient is seen in follow-up for end-stage renal disease. She is maintained on hemodialysis on Saturday schedule. Tolerating dialysis well today . She missed her treatment on Saturday. Vital signs are stable. General: No acute distress. HEENT: Head exam is unremarkable. LUNGS: No audible rhonchi or wheezes. HEART: Rate and Rhythm are regular. ABDOMEN: Nontender. EXTREMITITES: No edema. Objective - Vital Signs Vital signs: Vital Signs Temp 98.2 F 05/13/23 07:25 Pulse 66 05/13/23 07:25 Resp 18 05/13/23 07:25 BP 139/76 05/13/23 07:25 Pulse Ox 91 L 05/13/23 07:25 FiO2 Intake & Output 05/12/23 05/13/23 05/13/23 18:59 06:59 18:59 Intake Total 736 Balance 736 Intake: Intake, IV Titration 500 Amount Vancomycin 2,000 mg In 500 Sodium Chloride 0.9% 500 ml 500 ml @ 167 mls/hr IVPB ONCE@1400 ONE Rx#: [id number] Oral 236 Other: Voiding Method Bedside Commode - Labs CBC & Chem 7: 05/13/23 04:47 05/13/23 04:47 Labs: Abnormal Lab Results - Last 24 Hours (Table) 05/11/23 05/12/23 05/12/23 Range/Units 12:14 11:46 16:55 RBC (4.10-5.20) X 10*6/uL Hgb (12.0-15.0) g/dL Hct (37.2-46.3) % MCV (80.0-97.0) FL MCH (27.0-32.0) pg RDW (11.5-14.5) % NRBC/100 WBC Diff (0.00-0.01) X 10*3/uL ESR 56 H (0-30) mm/Hr Anion Gap (4.00-12.00) mmol/L BUN (9.0-27.0) mg/dL Creatinine (0.6-1.5) mg/dL Est GFR (CKD-EPI) (>=60) BUN/Creatinine Ratio (12.00-20.00) Ratio Glucose (70-110) mg/dL POC Glucose (mg/dL) 219 H 190 H (70-110) mg/dL AST (13-35) U/L ALT (8-44) U/L Alkaline Phosphatase (41-126) U/L Albumin (3.8-4.9) g/dL Globulin (1.6-3.3) g/dL Albumin/Globulin Ratio (1.60-3.17) Ratio 05/12/23 05/13/23 05/13/23 Range/Units 20:50 04:24 04:47 RBC 2.49 L (4.10-5.20) X 10*6/uL Hgb 8.3 L (12.0-15.0) g/dL Hct 25.4 L (37.2-46.3) % MCV 102.0 H (80.0-97.0) FL MCH 33.3 H (27.0-32.0) pg RDW 15.9 H (11.5-14.5) % NRBC/100 WBC Diff 0.02 H (0.00-0.01) X 10*3/uL ESR (0-30) mm/Hr Anion Gap (4.00-12.00) mmol/L BUN (9.0-27.0) mg/dL Creatinine (0.6-1.5) mg/dL Est GFR (CKD-EPI) (>=60) BUN/Creatinine Ratio (12.00-20.00) Ratio Glucose (70-110) mg/dL POC Glucose (mg/dL) 152 H 49 L (70-110) mg/dL AST (13-35) U/L ALT (8-44) U/L Alkaline Phosphatase (41-126) U/L Albumin (3.8-4.9) g/dL Globulin (1.6-3.3) g/dL Albumin/Globulin Ratio (1.60-3.17) Ratio 05/13/23 05/13/23 Range/Units 04:47 05:00 RBC (4.10-5.20) X 10*6/uL Hgb (12.0-15.0) g/dL Hct (37.2-46.3) % MCV (80.0-97.0) FL MCH (27.0-32.0) pg RDW (11.5-14.5) % NRBC/100 WBC Diff (0.00-0.01) X 10*3/uL ESR (0-30) mm/Hr Anion Gap 13.10 H (4.00-12.00) mmol/L BUN 36.6 H (9.0-27.0) mg/dL Creatinine 8.7 A* (0.6-1.5) mg/dL Est GFR (CKD-EPI) 5 L (>=60) BUN/Creatinine Ratio 4.21 L (12.00-20.00) Ratio Glucose 53 L (70-110) mg/dL POC Glucose (mg/dL) 67 L (70-110) mg/dL AST 69 H (13-35) U/L ALT 80 H (8-44) U/L Alkaline Phosphatase 147 H (41-126) U/L Albumin 3.1 L (3.8-4.9) g/dL Globulin 3.4 H (1.6-3.3) g/dL Albumin/Globulin Ratio 0.91 L (1.60-3.17) Ratio Microbiology - Last 24 Hours (Table) 05/12/23 12:25 Gram Stain - Preliminary Axilla - Left 05/11/23 16:15 Blood Culture - Preliminary Blood 05/11/23 16:00 Blood Culture - Preliminary Blood Assessment and Plan Plan: Assessment: 1. End-stage renal disease maintained on hemodialysis on Saturday schedule via right upper extremity AV graft. 2. Sepsis possibly from left axillary abscess versus spinal abscess. ID following. Axillary cultures positive for gram-positive or gram-negative bacilli. 3. Anemia of chronic kidney disease. 4. Chronic kidney disease mineral bone disease maintained on Renvela. 5. Diabetes mellitus. Plan: Currently seen while undergoing hemodialysis. Another treatment tomorrow per her outpatient schedule. Add Aranesp.
[2023-05-13 11:34] LABS: Glucose,Whole Blood 210 mg/dL (70-110)
[2023-05-13] MEDS: DARBEPOETIN ALFA 40 MCG/0.4 ML SYRINGE SQ SCH (13:30)
--- NOTE | 2023-05-13 16:03 | NM ---
EXAMINATION TYPE: NM hepatobiliary w CCK DATE OF EXAM: 05/13/2023 COMPARISON: NONE INDICATION: Fever elevated liver enzymes abnormal ultrasound TECHNIQUE: After the intravenous administration of 4.8 mCi Tc 99m Mebrofenin hepatobiliary scintigrap hy is performed. Images were obtained immediately post injection. FINDINGS: There is prompt uptake and excretion of radiotracer by the liver. Extrahepatic ducts are identified at 12 minutes. The gallbladder is visualized within 16 minutes. Small bowel activity is noted within 22 minutes. At one hour CCK was administered, patient was injected with 2.7 mcg of Kinevac, and gallbladder eject ion fraction is calculated at 10 %, which is very low range. (Normal >35% and <80%.). IMPRESSION: 1. Biliary hypokinesia. No obstruction is identified
[2023-05-13 16:20] LABS: Glucose,Whole Blood 123 mg/dL (70-110)
[2023-05-13] MEDS: VANCOMYCIN 2,000 MG in SODIUM CHLORIDE 0.9% 500 ML 500 ML IVPB ONE (17:25)
[2023-05-13 20:30] LABS: Glucose,Whole Blood 173 mg/dL (70-110)
--- NOTE | 2023-05-13 22:18 | P.PN ---
Subjective Progress Note Date: 05/13/23 Principal diagnosis: Reason for follow-up is left axillary abscess and elevated LFT Patient is a 68-year-old female with a past medical history significant for diabetes mellitus hypertension hyperlipidemia NV CVA TIA end- stage renal disease on dialysis presenting to the hospital for evaluation of fever and chills, patient was noticed to have a draining sinus to left axillary area concerning for abscess cellulitis also elevated liver enzymes. On today's evaluation that is 05/13/2023,the patient denies any fever or any chills, patient is breathing comfortably on room air, the patient denies chest pain shortness of breath and no significant cough, patient denies abdominal pain, no nausea vomiting or diarrhea. Denies pain to the left axillary area or any further drainage. Patient white normal 8.43 creatinine 0.7 cultures currently pending HIDA scan pending Objective - Vital Signs Vital signs: Vital Signs Temp 98.2 F 05/13/23 07:25 Pulse 66 05/13/23 07:25 Resp 18 05/13/23 07:25 BP 139/76 05/13/23 07:25 Pulse Ox 91 L 05/13/23 07:25 FiO2 Intake & Output 05/12/23 05/13/23 05/13/23 18:59 06:59 18:59 Intake Total 736 Balance 736 Intake: Intake, IV Titration 500 Amount Vancomycin 2,000 mg In 500 Sodium Chloride 0.9% 500 ml 500 ml @ 167 mls/hr IVPB ONCE@1400 ONE Rx#: [id number] Oral 236 Other: Voiding Method Bedside Commode - Exam GENERAL DESCRIPTION: An elderly female lying in bed in no distress RESPIRATORY SYSTEM: Unlabored breathing , decreased breath sounds at bases HEART: S1 S2 regular rate and rhythm , ABDOMEN: Soft , no tenderness EXTREMITIES: No edema feet - Labs CBC & Chem 7: 05/13/23 04:47 05/13/23 04:47 Labs: Abnormal Lab Results - Last 24 Hours (Table) 05/11/23 05/12/23 05/12/23 Range/Units 12:14 09:34 11:46 RBC (4.10-5.20) X 10*6/uL Hgb (12.0-15.0) g/dL Hct (37.2-46.3) % MCV (80.0-97.0) FL MCH (27.0-32.0) pg RDW (11.5-14.5) % NRBC/100 WBC Diff (0.00-0.01) X 10*3/uL ESR 56 H (0-30) mm/Hr Carbon Dioxide 32 H (22-30) mmol/L Anion Gap (4.00-12.00) mmol/L BUN 33 H (7-17) mg/dL Creatinine 7.56 H* (0.52-1.04) mg/dL Est GFR (CKD-EPI) (>=60) BUN/Creatinine Ratio (12.00-20.00) Ratio Glucose 199 H (74-99) mg/dL POC Glucose (mg/dL) 219 H (70-110) mg/dL AST (13-35) U/L ALT (8-44) U/L Alkaline Phosphatase (41-126) U/L Albumin (3.8-4.9) g/dL Globulin (1.6-3.3) g/dL Albumin/Globulin Ratio (1.60-3.17) Ratio 05/12/23 05/12/23/ Range/Units 16:55 20:50 04:24 RBC (4.10-5.20) X 10*6/uL Hgb (12.0-15.0) g/dL Hct (37.2-46.3) % MCV (80.0-97.0) FL MCH (27.0-32.0) pg RDW (11.5-14.5) % NRBC/100 WBC Diff (0.00-0.01) X 10*3/uL ESR (0-30) mm/Hr Carbon Dioxide (22-30) mmol/L Anion Gap (4.00-12.00) mmol/L BUN (7-17) mg/dL Creatinine (0.52-1.04) mg/dL Est GFR (CKD-EPI) (>=60) BUN/Creatinine Ratio (12.00-20.00) Ratio Glucose (74-99) mg/dL POC Glucose (mg/dL) 190 H 152 H 49 L (70-110) mg/dL AST (13-35) U/L ALT (8-44) U/L Alkaline Phosphatase (41-126) U/L Albumin (3.8-4.9) g/dL Globulin (1.6-3.3) g/dL Albumin/Globulin Ratio (1.60-3.17) Ratio 05/13/23 05/13/23 05/13/23 Range/Units 04:47 04:47 05:00 RBC 2.49 L (4.10-5.20) X 10*6/uL Hgb 8.3 L (12.0-15.0) g/dL Hct 25.4 L (37.2-46.3) % MCV 102.0 H (80.0-97.0) FL MCH 33.3 H (27.0-32.0) pg RDW 15.9 H (11.5-14.5) % NRBC/100 WBC Diff 0.02 H (0.00-0.01) X 10*3/uL ESR (0-30) mm/Hr Carbon Dioxide (22-30) mmol/L Anion Gap 13.10 H (4.00-12.00) mmol/L BUN 36.6 H (7-17) mg/dL Creatinine 8.7 A* (0.52-1.04) mg/dL Est GFR (CKD-EPI) 5 L (>=60) BUN/Creatinine Ratio 4.21 L (12.00-20.00) Ratio Glucose 53 L (74-99) mg/dL POC Glucose (mg/dL) 67 L (70-110) mg/dL AST 69 H (13-35) U/L ALT 80 H (8-44) U/L Alkaline Phosphatase 147 H (41-126) U/L Albumin 3.1 L (3.8-4.9) g/dL Globulin 3.4 H (1.6-3.3) g/dL Albumin/Globulin Ratio 0.91 L (1.60-3.17) Ratio Microbiology - Last 24 Hours (Table) 05/12/23 12:25 Gram Stain - Preliminary Axilla - Left 05/11/23 16:15 Blood Culture - Preliminary Blood 05/11/23 16:00 Blood Culture - Preliminary Blood Assessment and Plan (1) Abscess of left axilla Current Visit: Yes Status: Acute Code(s): L02.412 - CUTANEOUS ABSCESS OF LEFT AXILLA SNOMED Code(s): 71439002 (2) Elevated liver enzymes Current Visit: Yes Status: Acute Code(s): R74.8 - ABNORMAL LEVELS OF OTHER SERUM ENZYMES SNOMED Code(s): 557062005 (3) Leukocytosis Current Visit: Yes Status: Acute Code(s): D72.829 - ELEVATED WHITE BLOOD CELL COUNT, UNSPECIFIED SNOMED Code(s): 413671558 Plan: 1patient presenting to the hospital with sepsis in this patient who did have a fever elevated white count source is likely left axillary abscess and likely from gram-positive skin emelina patient did have a ultrasound of the axilla with mention of 3.4 into 2.2 cm superficial vascular hypoechoic area concerning for spinal abscess 2-culture has been obtained from the area both aerobic and anaerobic which are currently pending 3-patient also have a mild elevated liver enzymes and there was evidence of distended gallbladder with cholelithiasis underlying cholecystitis not excluded, HIDA scan is currently pending 4-patient to continue with vancomycin pharmacy to dose target trough 15 while waiting for the workup to be completed Dictation was produced using [employer] dictation software. please excuse any grammatical, word or spelling errors.
[2023-05-14 06:05] LABS: Glucose,Whole Blood 153 mg/dL (70-110)
[2023-05-14 06:35] LABS: African American GFR (CKD) 6 (>60 ml/min/1.73 sqM); Non-African American GFR(CKD) 5 (>60 ml/min/1.73 sqM)
--- NOTE | 2023-05-14 11:28 | P.PN ---
Subjective Patient is seen in follow-up for end-stage renal disease. She is maintained on hemodialysis on Saturday schedule. Tolerating dialysis well. No active complaints. No changes overnight. Vital signs are stable. General: No acute distress. HEENT: Head exam is unremarkable. LUNGS: No audible rhonchi or wheezes. HEART: Rate and Rhythm are regular. ABDOMEN: Nontender. EXTREMITITES: No edema. Objective - Vital Signs Vital signs: Vital Signs Temp 97.7 F 05/14/23 07:17 Pulse 59 L 05/14/23 07:17 Resp 17 05/14/23 07:17 BP 146/76 05/14/23 07:17 Pulse Ox 96 05/14/23 07:17 FiO2 Intake & Output 05/13/23 05/14/23 05/14/23 18:59 06:59 18:59 Intake Total 500 Output Total 1500 1 Balance -1000 -1 Intake: Hemodialysis 500 Output: Urine 1 Hemodialysis 1500 Other: Voiding Method Bedside Commode Toilet # Bowel Movements 1 - Labs CBC & Chem 7: 05/13/23 04:47 05/14/23 06:01 Labs: Abnormal Lab Results - Last 24 Hours (Table) 05/13/23 05/13/23 05/13/23 Range/Units 11:33 16:18 20:28 Creatinine (0.52-1.04) mg/dL POC Glucose (mg/dL) 210 H 123 H 173 H (70-110) mg/dL 05/14/23 05/14/23 Range/Units 06:01 06:01 Creatinine 7.32 H* (0.52-1.04) mg/dL POC Glucose (mg/dL) 153 H (70-110) mg/dL Microbiology - Last 24 Hours (Table) 05/11/23 16:15 Blood Culture - Preliminary Blood 05/11/23 16:00 Blood Culture - Preliminary Blood Assessment and Plan Plan: Assessment: 1. End-stage renal disease maintained on hemodialysis on Saturday schedule via right upper extremity AV graft. 2. Sepsis possibly from left axillary abscess versus spinal abscess. ID following. Axillary cultures positive for gram-positive or gram-negative bacilli. 3. Anemia of chronic kidney disease. On Aranesp. 4. Chronic kidney disease mineral bone disease maintained on Renvela. 5. Diabetes mellitus. Plan: Currently seen while undergoing hemodialysis. Next treatment . Monitor vancomycin levels. Dose to be adjusted for renal function.
[2023-05-14 11:50] LABS: Glucose,Whole Blood 193 mg/dL (70-110)
--- NOTE | 2023-05-14 15:36 | P.PN ---
Subjective Progress Note Date: 05/14/23 Principal diagnosis: Reason for follow-up is left axillary abscess and elevated LFT Patient is a 68-year-old female with a past medical history significant for diabetes mellitus hypertension hyperlipidemia PR CVA TIA end- stage renal disease on dialysis presenting to the hospital for evaluation of fever and chills, patient was noticed to have a draining sinus to left axillary area concerning for abscess cellulitis also elevated liver enzymes. On today's evaluation that is 05/14/2023,the patient remains to be afebrile, patient is on 2 L nasal cannula supplemental oxygen and denies any shortness of breath no chest pain or cough.Patient denies having any nausea or vomiting, no abdominal pain and no diarrhea has been reported, drainage from the left axilla has decreased to resolved. No new labs has been obtained today cultures so far pending Objective - Vital Signs Vital signs: Vital Signs Temp 97.7 F 05/14/23 07:17 Pulse 59 L 05/14/23 07:17 Resp 17 05/14/23 07:17 BP 146/76 05/14/23 07:17 Pulse Ox 96 05/14/23 07:17 FiO2 Intake & Output 05/13/23 05/14/23 05/14/23 18:59 06:59 18:59 Intake Total 500 Output Total 1500 1 Balance -1000 -1 Intake: Hemodialysis 500 Output: Urine 1 Hemodialysis 1500 Other: Voiding Method Bedside Commode Toilet # Bowel Movements 1 - Exam GENERAL DESCRIPTION: An elderly female lying in bed in no distress RESPIRATORY SYSTEM: Unlabored breathing , decreased breath sounds at bases HEART: S1 S2 regular rate and rhythm , ABDOMEN: Soft , no tenderness EXTREMITIES: No edema feet - Labs CBC & Chem 7: 05/13/23 04:47 05/14/23 06:01 Labs: Abnormal Lab Results - Last 24 Hours (Table) 05/13/23 05/13/23 05/13/23 Range/Units 11:33 16:18 20:28 Creatinine (0.52-1.04) mg/dL POC Glucose (mg/dL) 210 H 123 H 173 H (70-110) mg/dL 05/14/23 05/14/23 Range/Units 06:01 06:01 Creatinine 7.32 H* (0.52-1.04) mg/dL POC Glucose (mg/dL) 153 H (70-110) mg/dL Microbiology - Last 24 Hours (Table) 05/11/23 16:15 Blood Culture - Preliminary Blood 05/11/23 16:00 Blood Culture - Preliminary Blood Assessment and Plan (1) Abscess of left axilla Current Visit: Yes Status: Acute Code(s): L02.412 - CUTANEOUS ABSCESS OF LEFT AXILLA SNOMED Code(s): 71317977 (2) Elevated liver enzymes Current Visit: Yes Status: Acute Code(s): R74.8 - ABNORMAL LEVELS OF OTHER SERUM ENZYMES SNOMED Code(s): 666248257 (3) Leukocytosis Current Visit: Yes Status: Acute Code(s): D72.829 - ELEVATED WHITE BLOOD CELL COUNT, UNSPECIFIED SNOMED Code(s): 009211129 Plan: 1patient presenting to the hospital with sepsis in this patient who did have a fever elevated white count source is likely left axillary abscess and likely from gram-positive skin emelina patient did have a ultrasound of the axilla with mention of 3.4 into 2.2 cm superficial vascular hypoechoic area concerning for small abscess, did have spontaneous drainage 2-culture has been obtained from the area both aerobic and anaerobic which are c urrently pending 3-patient also have a mild elevated liver enzymes and there was evidence of distended gallbladder with cholelithiasis underlying cholecystitis not excluded, HIDA scan did shows low EF but no cystic duct obstruction 4-patient to continue with vancomycin pharmacy to dose target trough 15 while waiting for the culture to finalize antibiotic and glucose closely Dictation was produced using [employer] dictation software. please excuse any grammatical, word or spelling errors. Time with Patient: Less than 30
[2023-05-14] MEDS: MIDODRINE 5 MG TAB PO SCH (16:01)
[2023-05-14 17:32] LABS: Glucose,Whole Blood 214 mg/dL (70-110)
[2023-05-14 20:22] LABS: Glucose,Whole Blood 193 mg/dL (70-110)
--- NOTE | 2023-05-15 06:00 | P.PN ---
Subjective Progress Note Date: 05/14/23 HISTORY OF PRESENT ILLNESS: Patient is a 68-year-old female with end-stage renal disease on hemodialysis on a Saturday schedule. She is admitted to the hospital with complaints of fever on and off for past 3 to 4 days. Patient has also had increased weakness. She complained of nausea and vomiting as well. Patient has had drainage in her left arm. No complaints of pain. No complaints of cough or shortness of breath. 05/14/2027: Microbiology culture still showing normal emelina with rare gram- positive cocci and bacilli. She has not been on vancomycin per ID recommendation. Creatinine is up require hemodialysis again today which will be done by nephrology. As for her elevated liver function test no active acute gallstone was found right patient had gallbladder dyskinesia at some point if she is symptomatic with increased right upper quadrant pain in the she can probably have her gallbladder out. Will continue to follow infectious disease recommendation for another day and if stable with nothing major the culture may be can be changed to doxycycline and discharged home in the next 24 hours. REVIEW OF SYSTEMS: CONSTITUTIONAL: Well-developed no acute respiratory distress. EYES: No icterus sclerae, no conjunctivitis. EARS, NOSE, MOUTH, THROAT, and FACE: No sore throat, lymphadenopathy, carotid bruits or deformity. RESPIRATORY: No SOB cough or wheezes. CARDIOVASCULAR: No CP, Palpitation, PND, Orthopnea, or angina. GASTROINTESTINAL: No Abd pain, Nausea or vomiting, no Diarrhea or constipation, No GI Bleed, no distention or masses. GENITOURINARY: Negative for Hematuria or UTI, no kidney stones. INTEGUMENT/BREAST: Negative for any muscular injury with mild osteoarthritis.. HEMATOLOGIC/LYMPHATIC: Negative for bleed or purpura. MUSCULOSKELTAL: Negative for Myalgia or arthralgia. NEURLOGICAL: No LOC, Sz or syncope, blurred vision dizziness or abnormality.. BEHAVIORAL/PSYCH: Negative. ENDOCRINE: Negative. PHYSICAL EXAMINATION: General Appearance: Alert, cooperative, no distress, appears stated age. Neck HEENT: Supple, no lymphadenopathy, no thyroid enlargement, no carotid bruits. Lungs: Clear to auscultation without crackles or wheezes no rhonchi, no defo rmity. Chest Wall: Chest wall normal expansion with deep inspiration no tenderness and no deformity was found on exam, no costochondral pain or discomfort. Heart: Regular rate and rhythm, S1, S2 normal, no murmur, rub or gallop. Back: Symmetric, no curvature, ROM normal, no CVA tenderness. Abdomen: Soft, non-tender, bowel sounds active all four quadrants, no masses, no organomegaly. Extremities: Extremities normal, atraumatic, no cyanosis or edema. Pulses: 2+ and symmetric. Skin: Skin color, texture, tugor normal, no rashes or lesions. Neurologic: Alert oriented x3 cranial nerves II through XII intact, no motor deficit, no abnormal balance or gait. ASSESSMENT AND PLAN: _Hidradenitis and abscess of left axilla: Restarted on vancomycin continue medication still waiting for the final culture. _Possible gallbladder dyskinesia: Will be going for HIDA scan there is possibility of some stone in the gallbladder. No sign of gallstone or obstruction. _End-stage renal disease: On hemodialysis 3 times a week resume dialysis. Resume dialysis continue phosphorus stabilizing medication and vitamin D. Creatinine is corrected hide she required hemodialysis today. _Hypertension: Blood pressure remains well-controlled on Coreg 25 mg twice a day should be on smaller dose of losartan as well. Blood pressure stable at this point. _Mild hypoxia with oxygen saturation running in the low 90s sometimes most likely from fluid overload related to vascular congestion in the lung from not doing dialysis on time earlier which probably will clear with hemodialysis. _Hypothyroidism: Continue levothyroxine 225 mcg daily on Saturday the rest of the week is on 50 mcg. _Type 2 diabetes: Continue Humalog 22 units AC meals still on Lantus 23 units twice daily as well, continue Accu-Chek with sliding scale coverage. _Chronic anemia: Iron deficiency from end-stage renal disease continue to watch hemoglobin and iron level continue Procrit. _Abnormal liver function test: Not clear whether this is hepatically stasis I related to his secondary to infection we will watch liver function test again carefully with lab. Discharge planning: Goal dependent on her final culture how she does in the next 24 hours to my agreeable to go home tomorrow. Objective - Vital Signs Vital signs: Vital Signs Temp 98.0 F 05/14/23 01:49 Pulse 63 05/14/23 01:49 Resp 18 05/14/23 01:49 BP 134/68 05/14/23 01:49 Pulse Ox 91 L 05/14/23 01:49 FiO2 Intake & Output 05/13/23 05/13/23 05/14/23 06:59 18:59 06:59 Intake Total 500 Output Total 1500 Balance -1000 Intake: Hemodialysis 500 Output: Hemodialysis 1500 Other: Voiding Method Bedside Commode Toilet # Bowel Movements 1 - Labs CBC & Chem 7: 05/13/23 04:47 05/14/23 06:01 Labs: Abnormal Lab Results - Last 24 Hours (Table) 05/13/23 05/13/23 05/13/23 Range/Units 04:47 04:47 11:33 RBC 2.49 L (4.10-5.20) X 10*6/uL Hgb 8.3 L (12.0-15.0) g/dL Hct 25.4 L (37.2-46.3) % MCV 102.0 H (80.0-97.0) FL MCH 33.3 H (27.0-32.0) pg RDW 15.9 H (11.5-14.5) % NRBC/100 WBC Diff 0.02 H (0.00-0.01) X 10*3/uL Anion Gap 13.10 H (4.00-12.00) mmol/L BUN 36.6 H (9.0-27.0) mg/dL Creatinine 8.7 A* (0.6-1.5) mg/dL Est GFR (CKD-EPI) 5 L (>=60) BUN/Creatinine Ratio 4.21 L (12.00-20.00) Ratio Glucose 53 L (70-110) mg/dL POC Glucose (mg/dL) 210 H (70-110) mg/dL AST 69 H (13-35) U/L ALT 80 H (8-44) U/L Alkaline Phosphatase 147 H (41-126) U/L Albumin 3.1 L (3.8-4.9) g/dL Globulin 3.4 H (1.6-3.3) g/dL Albumin/Globulin Ratio 0.91 L (1.60-3.17) Ratio 05/13/23 05/13/23 Range/Units 16:18 20:28 RBC (4.10-5.20) X 10*6/uL Hgb (12.0-15.0) g/dL Hct (37.2-46.3) % MCV (80.0-97.0) FL MCH (27.0-32.0) pg RDW (11.5-14.5) % NRBC/100 WBC Diff (0.00-0.01) X 10*3/uL Anion Gap (4.00-12.00) mmol/L BUN (9.0-27.0) mg/dL Creatinine (0.6-1.5) mg/dL Est GFR (CKD-EPI) (>=60) BUN/Creatinine Ratio (12.00-20.00) Ratio Glucose (70-110) mg/dL POC Glucose (mg/dL) 123 H 173 H (70-110) mg/dL AST (13-35) U/L ALT (8-44) U/L Alkaline Phosphatase (41-126) U/L Albumin (3.8-4.9) g/dL Globulin (1.6-3.3) g/dL Albumin/Globulin Ratio (1.60-3.17) Ratio Microbiology - Last 24 Hours (Table) 05/11/23 16:15 Blood Culture - Preliminary Blood 05/11/23 16:00 Blood Culture - Preliminary Blood 05/12/23 12:25 Gram Stain - Preliminary Axilla - Left
[2023-05-15 06:05] LABS: Glucose,Whole Blood 176 mg/dL (70-110)
[2023-05-15 07:41] VITALS: BP 160/77; PULSE 66; RESP 16; TEMP 98.5
--- NOTE | 2023-05-15 10:59 | P.PN ---
Subjective Patient is seen in follow-up for end-stage renal disease. She is maintained on hemodialysis on Saturday schedule. No problems with dialysis yesterday. No active complaints. No changes overnight. Vital signs are stable. General: No acute distress. HEENT: Head exam is unremarkable. LUNGS: No audible rhonchi or wheezes. HEART: Rate and Rhythm are regular. ABDOMEN: Nontender. EXTREMITITES: No edema. Objective - Vital Signs Vital signs: Vital Signs Temp 98.5 F 05/15/23 07:35 Pulse 66 05/15/23 07:50 Resp 16 05/15/23 07:50 BP 160/77 05/15/23 07:35 Pulse Ox 93 L 05/15/23 07:35 FiO2 Intake & Output 05/14/23 05/15/23 05/15/23 18:59 06:59 18:59 Intake Total 0 Balance 0 Intake: Oral 0 Other: Voiding Method Toilet Toilet # Voids 0 3 - Labs CBC & Chem 7: 05/13/23 04:47 05/14/23 06:01 Labs: Abnormal Lab Results - Last 24 Hours (Table) 05/14/23 05/14/23 05/14/23 Range/Units 11:49 17:30 20:21 POC Glucose (mg/dL) 193 H 214 H 193 H (70-110) mg/dL 05/15/23 Range/Units 06:03 POC Glucose (mg/dL) 176 H (70-110) mg/dL Microbiology - Last 24 Hours (Table) 05/11/23 16:15 Blood Culture - Preliminary Blood 05/11/23 16:00 Blood Culture - Preliminary Blood 05/12/23 12:25 Gram Stain - Final Axilla - Left Wound Culture - Final Assessment and Plan Plan: Assessment: 1. End-stage renal disease maintained on hemodialysis on Saturday schedule via right upper extremity AV graft. 2. Sepsis possibly from left axillary abscess versus spinal abscess. ID following. Axillary cultures positive for gram-positive or gram-negative bacilli. 3. Anemia of chronic kidney disease. On Aranesp. 4. Chronic kidney disease mineral bone disease maintained on Renvela. 5. Diabetes mellitus. Plan: Hemodialysis tomorrow. Monitor vancomycin levels. Dose to be adjusted for renal function.
[2023-05-15 11:31] LABS: Glucose,Whole Blood 312 mg/dL (70-110)
--- NOTE | 2023-05-15 12:21 | P.PN ---
Subjective Progress Note Date: 05/15/23 Principal diagnosis: Reason for follow-up is left axillary abscess and elevated LFT Patient is a 68-year-old female with a past medical history significant for diabetes mellitus hypertension hyperlipidemia PR CVA TIA end- stage renal disease on dialysis presenting to the hospital for evaluation of fever and chills, patient was noticed to have a draining sinus to left axillary area concerning for abscess cellulitis also elevated liver enzymes. On today's evaluation that is 05/15/2023, the patient continues to be afebrile, the patient is on room air and breathing comfortably, the Pt denies having any chest pain or cough, the patient denies having any abdominal pain no vomiting or any diarrhea has been reported by the nursing staff, patient denies pain to the left axillary area and no further drainage feeling better wants to go home. The patient vancomycin random is 22.9 cultures have been negative so far blood culture negative Objective - Vital Signs Vital signs: Vital Signs Temp 98.5 F 05/15/23 07:35 Pulse 66 05/15/23 07:50 Resp 16 05/15/23 07:50 BP 160/77 05/15/23 07:35 Pulse Ox 93 L 05/15/23 07:35 FiO2 Intake & Output 05/14/23 05/15/23 05/15/23 18:59 06:59 18:59 Intake Total 0 Balance 0 Intake: Oral 0 Other: Voiding Method Toilet Toilet # Voids 0 3 - Exam GENERAL DESCRIPTION: An elderly female lying in bed in no distress RESPIRATORY SYSTEM: Unlabored breathing , decreased breath sounds at bases HEART: S1 S2 regular rate and rhythm , ABDOMEN: Soft , no tenderness EXTREMITIES: Left axillary area swelling resolved minimal redness no drainage - Labs CBC & Chem 7: 05/13/23 04:47 05/14/23 06:01 Labs: Abnormal Lab Results - Last 24 Hours (Table) 05/14/23 05/14/23 05/15/23 Range/Units 17:30 20:21 06:03 POC Glucose (mg/dL) 214 H 193 H 176 H (70-110) mg/dL 05/15/23 Range/Units 11:30 POC Glucose (mg/dL) 312 H (70-110) mg/dL Microbiology - Last 24 Hours (Table) 05/11/23 16:15 Blood Culture - Preliminary Blood 05/11/23 16:00 Blood Culture - Preliminary Blood 05/12/23 12:25 Gram Stain - Final Axilla - Left Wound Culture - Final Assessment and Plan (1) Abscess of left axilla Current Visit: Yes Status: Acute Code(s): L02.412 - CUTANEOUS ABSCESS OF LEFT AXILLA SNOMED Code(s): 11114891 (2) Elevated liver enzymes Current Visit: Yes Status: Acute Code(s): R74.8 - ABNORMAL LEVELS OF OTHER SERUM ENZYMES SNOMED Code(s): 915310722 (3) Leukocytosis Current Visit: Yes Status: Acute Code(s): D72.829 - ELEVATED WHITE BLOOD CELL COUNT, UNSPECIFIED SNOMED Code(s): 611756945 Plan: 1patient presenting to the hospital with sepsis in this patient who did have a fever elevated white count source is likely left axillary abscess and likely from gram-positive skin emelina patient did have a ultrasound of the axilla with mention of 3.4 into 2.2 cm superficial vascular hypoechoic area concerning for small abscess, did have spontaneous drainage 2-culture has been obtained from the area both aerobic and anaerobic which are so far negative for resistant pathogen 3-patient also have a mild elevated liver enzymes and there was evidence of distended gallbladder with cholelithiasis underlying cholecystitis not excluded, HIDA scan did shows low EF but no cystic duct obstruction 4-patient has shown clinical improvement and wants to go home we will send a prescription for oral doxycycline and close outpatient follow-up Dictation was produced using [employer] dictation software. please excuse any grammatical, word or spelling errors.
[2023-05-15] MEDS ORDERED: VANCOMYCIN 2,000 MG in SODIUM CHLORIDE 0.9% 500 ML 500 ML IVPB ONE (21:00)
--- NOTE | 2023-05-17 06:03 | P.DS ---
Providers Date of admission: 05/13/23 11:22 Attending physician: Rah Elder Consults: 05/11/23 14:06 Consult Physician Urgent Consulting Provider: Mariah Melendez Consult Reason/Comments: Dialysis, hyperkalemia Do you want consulting provider notified?: Yes 05/11/23 14:55 Consult Physician Routine Consulting Provider: Nilda Velazco Consult Reason/Comments: Fevers Do you want consulting provider notified?: Yes Primary care physician: [facility] Course: HISTORY OF PRESENT ILLNESS: Patient is a 68-year-old female with end-stage renal disease on hemodialysis on a Saturday schedule. She is admitted to the hospital with complaints of fever on and off for past 3 to 4 days. Patient has also had increased weakness. She complained of nausea and vomiting as well. Patient has had drainage in her left arm. No complaints of pain. No complaints of cough or shortness of breath. 05/14/2023: Microbiology culture still showing normal emelina with rare gram- positive cocci and bacilli. She has not been on vancomycin per ID recommendation. Creatinine is up require hemodialysis again today which will be done by nephrology. As for her elevated liver function test no active acute gallstone was found right patient had gallbladder dyskinesia at some point if she is symptomatic with increased right upper quadrant pain in the she can probably have her gallbladder out. Will continue to follow infectious disease recommendation for another day and if stable with nothing major the culture may be can be changed to doxycycline and discharged home in the next 24 hours. 05/15/2023: She is feeling much better culture is finalized looks like more than normal emelina agreeable to switch patient to doxycycline orally and she will be discharged home today she was a cleared from infectious disease standpoint. Hemodialysis espino patient will go back to her regular schedule of hemodialysis tomorrow morning. REVIEW OF SYSTEMS: CONSTITUTIONAL: Well-developed no acute respiratory distress. EYES: No icterus sclerae, no conjunctivitis. EARS, NOSE, MOUTH, THROAT, and FACE: No sore throat, lymphadenopathy, carotid bruits or deformity. RESPIRATORY: No SOB cough or wheezes. CARDIOVASCULAR: No CP, Palpitation, PND, Orthopnea, or angina. GASTROINTESTINAL: No Abd pain, Nausea or vomiting, no Diarrhea or constipation, No GI Bleed, no distention or masses. GENITOURINARY: Negative for Hematuria or UTI, no kidney stones. INTEGUMENT/BREAST: Negative for any muscular injury with mild osteoarthritis.. HEMATOLOGIC/LYMPHATIC: Negative for bleed or purpura. MUSCULOSKELTAL: Negative for Myalgia or arthralgia. NEURLOGICAL: No LOC, Sz or syncope, blurred vision dizziness or abnormality.. BEHAVIORAL/PSYCH: Negative. ENDOCRINE: Negative. PHYSICAL EXAMINATION: General Appearance: Alert, cooperative, no distress, appears stated age. Neck HEENT: Supple, no lymphadenopathy, no thyroid enlargement, no carotid bruits. Lungs: Clear to auscultation without crackles or wheezes no rhonchi, no deformity. Chest Wall: Chest wall normal expansion with deep inspiration no tenderness and no deformity was found on exam, no costochondral pain or discomfort. Heart: Regular rate and rhythm, S1, S2 normal, no murmur, rub or gallop. Back: Symmetric, no curvature, ROM normal, no CVA tenderness. Abdomen: Soft, non-tender, bowel sounds active all four quadrants, no masses, no organomegaly. Extremities: Extremities normal, atraumatic, no cyanosis or edema. Pulses: 2+ and symmetric. Skin: Skin color, texture, tugor normal, no rashes or lesions. Neurologic: Alert oriented x3 cranial nerves II through XII intact, no motor deficit, no abnormal balance or gait. ASSESSMENT AND PLAN: _Hidradenitis and abscess of left axilla: Restarted on vancomycin continue medication still waiting for the final culture. _Possible gallbladder dyskinesia: Will be going for HIDA scan there is possibility of some stone in the gallbladder. No sign of gallstone or obstruction. _End-stage renal disease: On hemodialysis 3 times a week resume dialysis. Resume dialysis continue phosphorus stabilizing medication and vitamin D. Creatinine is corrected hide she required hemodialysis today. _Hypertension: Blood pressure remains well-controlled on Coreg 25 mg twice a day should be on smaller dose of losartan as well. Blood pressure stable at this point. _Mild hypoxia with oxygen saturation running in the low 90s sometimes most likely from fluid overload related to vascular congestion in the lung from not doing dialysis on time earlier which probably will clear with hemodialysis. _Hypothyroidism: Continue levothyroxine 225 mcg daily on Saturday the rest of the week is on 50 mcg. _Type 2 diabetes: Continue Humalog 22 units AC meals still on Lantus 23 units twice daily as well, continue Accu-Chek with sliding scale coverage. _Chronic anemia: Iron deficiency from end-stage renal disease continue to watch hemoglobin and iron level continue Procrit. _Abnormal liver function test: Not clear whether this is hepatically stasis I related to his secondary to infection we will watch liver function test again carefully with lab. Discharge planning: Final cultures are clear and patient is cleared to be discharged home today follow-up with hemodialysis tomorrow. Hospital course: her hospital course was successful she was admitted for abscess with culture the patient has done very well final report was more regular emelina she was on more aggressive antibiotic initially and has improved. The following day patient creatinine climb up quite. She was started on inpatient hemodialysis and continued the following day. Hypoxia has improved significantly her oxygen levels back to normal. Blood sugar continues to fluctuate up and down slightly but improved. Patient had mild chronic iron deficiency anemia because of dialysis which is not change. For her abnormal liver function test ended up going for ultrasound and HIDA scan result came back compatible with gallbladder dyskinesia does not require any surgical intervention at this point if patient develop in the future to have worsening symptoms with intractable nausea vomiting and abdominal pain surgical intervention to remove her gallbladder can be considered. Patient was ready to be discharged home on 05/15/2023. Time spent on patient discharge was more than 35 minutes. Patient Condition at Discharge: Fair Plan - Discharge Summary Discharge Rx Participant: No New Discharge Prescriptions: New Darbepoetin Duncan [Aranesp] 40 mcg SQ Q7D each Doxycycline Hyclate 100 mg PO BID 10 Days #20 tab Midodrine [ProAmatine] 10 mg PO TID tab Continue Aspirin 325 mg PO DAILY@1600 Levothyroxine Sodium [Synthroid] 150 mcg PO MOTUWETHFRSA carvediloL 25 mg PO BID Nephro-Nav 1 cap PO DAILY@1600 Insulin Lispro [humaLOG Kwikpen] 22 unit SQ TID-W/MEALS Insulin Glargine,Hum.rec.anlog [Lantus Solostar Pen] 23 units SQ BID Sevelamer [Renvela] 1,600 mg PO TID-W/MEALS Levothyroxine Sodium [Synthroid] 225 mcg PO GILLESPIE Ergocalciferol [Vitamin D2 (1250 Mcg = 44392 Iu)] 1,250 mcg PO GILLESPIE Simvastatin [Zocor] 40 mg PO HS Omeprazole [PriLOSEC] 20 mg PO DAILY Discharge Medication List Aspirin 325 mg PO DAILY@1600 07/28/19 [History] Levothyroxine Sodium [Synthroid] 150 mcg PO MOTUWETHFRSA 03/25/20 [History] carvediloL 25 mg PO BID 08/16/21 [History] Ergocalciferol [Vitamin D2 (1250 Mcg = 79538 Iu)] 1,250 mcg PO GILLESPIE 12/20/21 [History] Levothyroxine Sodium [Synthroid] 225 mcg PO GILLESPIE 12/20/21 [History] Insulin Glargine,Hum.rec.anlog [Lantus Solostar Pen] 23 units SQ BID 07/21/22 [History] Insulin Lispro [humaLOG Kwikpen] 22 unit SQ TID-W/MEALS 07/21/22 [History] Nephro-Nav 1 cap PO DAILY@1600 07/21/22 [History] Sevelamer [Renvela] 1,600 mg PO TID-W/MEALS 10/17/22 [History] Simvastatin [Zocor] 40 mg PO HS 10/17/22 [History] Omeprazole [PriLOSEC] 20 mg PO DAILY 01/09/23 [History] Darbepoetin Duncan [Aranesp] 40 mcg SQ Q7D each 05/15/23 [Rx] Doxycycline Hyclate 100 mg PO BID 10 Days #20 tab 05/15/23 [Rx] Midodrine [ProAmatine] 10 mg PO TID tab 05/15/23 [Rx] Follow up Appointment(s)/Referral(s): Mariah Melendez MD [STAFF PHYSICIAN] - 1 Week Candelaria Barrera MD [Primary Care Provider] - 1-2 days Patient Instructions/Handouts: End Stage Kidney Disease (DC) Discharge Disposition: HOME WITH HOME HEALTH SERVICES
== END 2023-05-15 14:12 | disposition home or self-care (01) | DRG 871 ==
LOC: EC 10:35 → 4SSUR 13:41 → OBSVTOIN 05-13 11:22 → 4SSUR 05-13 13:18
PROVIDERS: ADMIT Internal Medicine Geriatric Medicine; ATTEND Internal Medicine Geriatric Medicine
PROC: 5A1D70Z Performance of Urinary Filtration, Intermittent, Less than 6 Hours Per Day (ICD-10-PCS; principal; 2023-05-13)
DX: A41.9 Sepsis, unspecified organism (principal); N18.6 End stage renal disease; I12.0 Hypertensive chronic kidney disease with stage 5 chronic kidney disease or end stage renal disease; L02.412 Cutaneous abscess of left axilla; L03.112 Cellulitis of left axilla; D63.1 Anemia in chronic kidney disease; E83.9 Disorder of mineral metabolism, unspecified; E11.22 Type 2 diabetes mellitus with diabetic chronic kidney disease; E03.9 Hypothyroidism, unspecified; Z99.2 Dependence on renal dialysis; Z79.4 Long term (current) use of insulin; L73.2 Hidradenitis suppurativa; K82.8 Other specified diseases of gallbladder; K80.20 Calculus of gallbladder without cholecystitis without obstruction; E78.5 Hyperlipidemia, unspecified; E87.5 Hyperkalemia; R09.02 Hypoxemia; E87.70 Fluid overload, unspecified; H54.8 Legal blindness, as defined in USA; I25.2 Old myocardial infarction; G47.30 Sleep apnea, unspecified; K21.9 Gastro-esophageal reflux disease without esophagitis; M19.90 Unspecified osteoarthritis, unspecified site; R74.8 Abnormal levels of other serum enzymes; Z79.890 Hormone replacement therapy; Z79.82 Long term (current) use of aspirin; Z79.899 Other long term (current) drug therapy; Z86.73 Personal history of transient ischemic attack (TIA), and cerebral infarction without residual deficits
CPT/HCPCS: 36415; 71046; 76705; 78227; 80048; 80053; 80202; 82565; 83036; 84145; 85025; 85652; 86140; 87040; 87070; 87075; 87205; 87636; 90935; 93005; 99285

== ENCOUNTER 2023-05-30 18:18 | Inpatient (IN) | payer MEDICARE, BC ==
[2023-05-30 20:38] LABS: Anisocytosis Slight; HCT 23.6 % (34.0-46.0); HGB 8.1 gm/dL (11.4-16.0); MCH 35.1 pg (25.0-35.0); MCHC 34.3 g/dL (31.0-37.0); MCV 102.4 fL (80.0-100.0); Macrocytosis Moderate; Mean Platelet Volume 8.9; Platelet Count 165 k/uL (150-450); RDW 16.2 % (11.5-15.5)
[2023-05-30] MEDS: SODIUM CHLORIDE 0.9% 500 ML 500 ML IV STA (20:43)
[2023-05-30 20:48] LABS: ALT 154 U/L (4-34); AST 414 U/L (14-36); African American GFR (CKD) 7 (>60 ml/min/1.73 sqM); Alkaline Phosphatase 224 U/L (38-126); Amylase 49 U/L (30-110); Anion Gap 11 mmol/L; Blood Urea Nitrogen 39 mg/dL (7-17); Calcium 8.4 mg/dL (8.4-10.2); Carbon Dioxide 30 mmol/L (22-30); Chloride 100 mmol/L (98-107); Glucose 105 mg/dL (74-99); Lipase 315 U/L (23-300); Magnesium 1.9 mg/dL (1.6-2.3); Non-African American GFR(CKD) 6 (>60 ml/min/1.73 sqM); Potassium 3.4 mmol/L (3.5-5.1); Sodium 141 mmol/L (137-145); Total Bilirubin 1.9 mg/dL (0.2-1.3); Total Protein 6.4 g/dL (6.3-8.2)
[2023-05-30 20:56] LABS: NT-Pro-B-Type Natriuretic Pept 3270 pg/mL
[2023-05-30 21:09] LABS: Prothrombin Time 10.7 sec (10.0-12.5)
[2023-05-30 21:24] LABS: Band Neutrophils % 30 %; Eosinophils # (M) 0.16 k/uL (0-0.7); Large Platelets Present; Lymphocytes # (M) 0.28 k/uL (1.0-4.8); Metamyelocytes # (M) 0.08 k/uL (0); Metamyelocytes % 2 %; Monocytes # (M) 0.16 k/uL (0-1.0); Neutrophils % (M) 54 %; Nucleated Red Blood Cells 0 /100 WBC (0-0); Total Cells Counted 200; Toxic Vacuolation Present
[2023-05-30 21:25] LABS: Polychromasia Present
--- NOTE | 2023-05-30 22:01 | ED ---
General Adult HPI - General Source: patient, EMS Mode of arrival: EMS Limitations: no limitations <Josue Torres - Last Filed: 05/30/23 23:59> - General Source: patient, EMS, RN notes reviewed, old records reviewed Mode of arrival: EMS Limitations: no limitations <Mayank Clements - Last Filed: 06/06/23 23:54> - General Chief complaint: Nausea/Vomiting/Diarrhea Stated complaint: N/V/D Time Seen by Provider: 05/30/23 19:19 - History of Present Illness Initial comments: 68-year-old female with a past medical history significant for ESRD on dialysis Saturday, , Saturday, diabetes mellitus, hypertension hyperlipidemia and obesity presenting to the ED with a chief complaint of nausea and vomiting. States onset of nausea vomiting today. Denies any blood in the stool or fever. Also notes some shortness of breath onset today as well. No chest pain. No changes in bladder habits. No other complaints at this time. (Josue Torres) This is 68-year-old female to the ER for evaluation of persistent nausea and vomiting severe. (Mayank Clements) - Related Data Home Medications Medication Instructions Recorded Confirmed Aspirin 325 mg PO DAILY@1600 07/28/19 05/31/23 Levothyroxine Sodium [Synthroid] 150 mcg PO MOTUWETHFR 03/25/20 05/31/23 carvediloL 25 mg PO BID 08/16/21 05/31/23 Levothyroxine Sodium [Synthroid] 225 mcg PO SUSA 12/20/21 05/31/23 Insulin Glargine,Hum.rec.anlog 32 units SQ BID 07/21/22 05/31/23 [Lantus Solostar Pen] Insulin Lispro [humaLOG Kwikpen] 22 unit SQ TID-W/MEALS 07/21/22 05/31/23 Sevelamer [Renvela] 1,600 mg PO TID-W/MEALS 10/17/22 05/31/23 Simvastatin [Zocor] 40 mg PO HS 10/17/22 05/31/23 Midodrine [ProAmatine] 10 mg PO TID PRN 05/31/23 05/31/23 Pantoprazole Sodium [Protonix] 20 mg PO DAILY 05/31/23 05/31/23 traZODone HCL [Desyrel] 100 mg PO HS PRN 05/31/23 05/31/23 Previous Rx's Medication Instructions Recorded Cefuroxime [Ceftin] 250 mg PO BID 7 Days #14 tab 06/04/23 HYDROcodone/APAP 5-325MG [Lookout 1 each PO Q4HR PRN #20 tab 06/04/23 5-325] metroNIDAZOLE [Flagyl] 250 mg PO TID #21 tab 06/04/23 Allergies Allergy/AdvReac Type Severity Reaction Status Date / Time No Known Allergies Allergy Verified 05/31/23 09:34 Review of Systems ROS Other: All systems not noted in ROS Statement are negative. <Josue Torres - Last Filed: 05/30/23 23:59> ROS Other: All systems not noted in ROS Statement are negative. <Mayank Clements - Last Filed: 06/06/23 23:54> ROS Statement: Those systems with pertinent positive or pertinent negative responses have been documented in the HPI. 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 6 years. Last Myocardial Infarction Date:: Unknown History of Any Multi-Drug Resistant Organisms: None Reported Past Surgical History: Section, Hysterectomy, Orthopedic Surgery Additional Past Surgical History / Comment(s): Had open thrombectomy left axillary graft on 12-21-21,BONE TUMOR REMOVED FROM LT FINGER AND REPLACED WITH BONE FROM ELBOW. DIALYSIS FISTULA rt arm-old, lasik rt eye surgery, right upper ext. left AV graft revision 03-31-20 Past Anesthesia/Blood Transfusion Reactions: Postoperative Nausea & Vomiting (PONV) Past Psychological History: No Psychological Hx Reported Smoking Status: Never smoker Past Alcohol Use History: None Reported Past Drug Use History: None Reported - Past Family History Mother Family Medical History: Cancer Brother(s) Family Medical History: Cancer <Josue Torres - Last Filed: 05/30/23 23:59> General Exam Limitations: no limitations General appearance: alert, obese Neck exam: Present: normal inspection Respiratory exam: Present: other (Some crackles on the right heard however exam limited secondary to patient cooperation.) Cardiovascular Exam: Present: regular rate GI/Abdominal exam: Present: soft Neurological exam: Present: alert, oriented X3 Skin exam: Present: warm, dry <Josue Torres - Last Filed: 05/30/23 23:59> General appearance: alert, in no apparent distress Head exam: Present: atraumatic, normocephalic, normal inspection Eye exam: Present: normal appearance, PERRL, EOMI. Absent: scleral icterus, conjunctival injection, periorbital swelling ENT exam: Present: normal exam, mucous membranes moist Neck exam: Present: normal inspection. Absent: tenderness, meningismus, lymphadenopathy Respiratory exam: Present: normal lung sounds bilaterally. Absent: respiratory distress, wheezes, rales, rhonchi, stridor Cardiovascular Exam: Present: regular rate, normal rhythm, normal heart sounds. Absent: systolic murmur, diastolic murmur, rubs, gallop, clicks GI/Abdominal exam: Present: soft, normal bowel sounds. Absent: distended, tenderness, guarding, rebound, rigid Extremities exam: Present: normal inspection, full ROM, normal capillary refill. Absent: tenderness, pedal edema, joint swelling, calf tenderness Back exam: Present: normal inspection Neurological exam: Present: alert, oriented X3, CN II-XII intact Psychiatric exam: Present: normal affect, normal mood Skin exam: Present: warm, dry, intact, normal color. Absent: rash <Mayank Clements - Last Filed: 06/06/23 23:54> Course Vital Signs 05/30/23 05/30/23 05/30/23 18:19 20:00 20:01 Temperature 100.0 F H Pulse Rate 89 Pulse Rate [ Customer Support Engineer ] Respiratory 12 Rate Blood Pressure 109/32 Blood Pressure [Left Arm Supine] O2 Sat by Pulse 94 L 88 L 94 L Oximetry 05/30/23 05/31/23 05/31/23 20:32 01:03 01:09 Temperature 98.4 F 100 F H Pulse Rate Pulse Rate [ 76 Customer Support Engineer ] Respiratory 16 18 Rate Blood Pressure Blood Pressure 98/47 110/48 [Left Arm Supine] O2 Sat by Pulse 94 L 93 L Oximetry 05/31/23 05/31/23 05/31/23 03:26 03:30 04:10 Temperature 98.2 F Pulse Rate Pulse Rate [ 71 Customer Support Engineer ] Respiratory 20 Rate Blood Pressure Blood Pressure 94/45 100/45 107/45 [Left Arm Supine] O2 Sat by Pulse 94 L Oximetry 05/31/23 05/31/23 05/31/23 04:40 06:28 08:00 Temperature 99.3 F Pulse Rate Pulse Rate [ 72 Customer Support Engineer ] Respiratory 16 Rate Blood Pressure Blood Pressure 99/47 105/46 97/47 [Left Arm Supine] O2 Sat by Pulse 93 L Oximetry 05/31/23 05/31/23 05/31/23 12:46 14:03 14:38 Temperature 98.3 F 98.8 F Pulse Rate 67 68 Pulse Rate [ 69 Customer Support Engineer ] Respiratory 20 16 20 Rate Blood Pressure 108/50 94/36 Blood Pressure 99/39 [Left Arm Supine] O2 Sat by Pulse 97 94 L Oximetry EKG Findings - EKG Comments: EKG Findings:: EKG is sinus rhythm 76 WV 196 QRS 96 QTc 429 <Mayank Clements - Last Filed: 06/06/23 23:54> Medical Decision Making - Lab Data Result diagrams: 05/30/23 20:24 05/30/23 20:24 <Josue Torres - Last Filed: 05/30/23 23:59> - Lab Data Result diagrams: 06/04/23 08:18 06/06/23 06:47 <Mayank Clements - Last Filed: 06/06/23 23:54> - Medical Decision Making Was pt. sent in by a medical professional or institution (, PA, EXCELLENCE CONSULTANT, urgent care, hospital, or group home...) When possible be specific @ -No Did you speak to anyone other than the patient for history (EMS, parent, family, police, friend...)? What history was obtained from this source @ -No Did you review nursing and triage notes (agree or disagree)? Why? @ -I reviewed and agree with nursing and triage notes Were old charts reviewed (outside hosp., previous admission, EMS record, old EKG, old radiological studies, urgent care reports/EKG's, group home records)? Report findings @ -Prior charts reviewed. For further details please see MDM. Differential Diagnosis (chest pain, altered mental status, abdominal pain women, abdominal pain men, vaginal bleeding, weakness, fever, dyspnea, syncope, headache, dizziness, GI bleed, back pain, seizure, CVA, palpatations, mental health, musculoskeletal)? @ -Differential Abdominal Pain Women: Appendicitis, Cholecystitis, diverticulosis, ischemic bowel, pancreatitis, hepatitis, UTI, gastroenteritis, AAA, incarcerated hernia, bowel obstruction, constipation, inflammatory bowel, hepatitis, peptic ulcer disease, splenic infarction, perforated viscus, vulvitis, ovarian torsion, PID, kidney stone, placenta abruption, this is not meant to be an all-inclusive list Differential Dyspnea: Coronary syndrome, arrhythmia, tamponade, asthma, COPD, pulmonary embolism, pneumonia, pneumothorax, pulmonary effusion, anaphylaxis, diabetic ketoacidosis, flailed chest, pulmonary contusion, diaphragmatic rupture, anemia, neuromuscular, this is not meant to be an all-inclusive list. EKG interpreted by me (3pts min.). @ -None at this time however ordered and pending X-rays interpreted by me (1pt min.). @ -Chest x-ray interpreted by me which showed evidence of fluid overload state. CT interpreted by me (1pt min.). @ -CT abdomen pelvis interpreted me which revealed no acute findings. U/S interpreted by me (1pt. min.). @ -Ultrasound interpreted me reveals no acute findings. What testing was considered but not performed or refused? (CT, X-rays, U/S, labs)? Why? @ -None What meds were considered but not given or refused? Why? @ -None Did you discuss the management of the patient with other professionals (professionals i.e. , PA, EXCELLENCE CONSULTANT, lab, RT, psych nurse, director social, general internal medicine physician, teacher, co founder and chief strategy officer, dependency case manager)? Give summary @ -Case discussed with Dr. Hancock who accepts admission. At this time recommends Lasix infusion with further recommendations per cardiology. Was smoking cessation discussed for >3mins.? @ -No Was critical care preformed (if so, how long)? @ -No Were there social determinants of health that impacted care today? How? (Homelessness, low income, unemployed, alcoholism, drug addiction, transportation, low edu. Level, literacy, decrease access to med. care, senior living, rehab)? @ -No Was there de-escalation of care discussed even if they declined (Discuss DNR or withdrawal of care, Hospice)? DNR status @ -No What co-morbidities impacted this encounter? (DM, HTN, Smoking, COPD, CAD, Canc er, CVA, ARF, Chemo, Hep., AIDS, mental health diagnosis, sleep apnea, morbid obesity)? @ -Hypertension, end-stage renal disease Was patient admitted / discharged? Hospital course, mention meds given and route, prescriptions, significant lab abnormalities, going to OR and other pertinent info. @ -Admission Prior records reviewed. Patient recently discharged from this facility on 05/15/2023. At this time was admitted to the hospital with complaints of inte rmittent fever and increased weakness. Is also had some nausea and vomiting as well. At this time was found to have some elevated LFTs and HIDA scan was performed which showed miliary hypokinesia. No obstruction identified. Patient presenting today due to onset of nausea, vomiting, diarrhea, no abdominal pain, and shortness of breath. States that she was at dialysis today and was unable to be completed. Laboratory studies reviewed. Hemoglobin at 8.1 however this appears to be around baseline. Chemistry panel shows no significant derangements in electrolytes. BUN and creatinine elevated at 39 and 6.53. LFTs elevated with a total bili of 1.9, AST of 414, ALT at 154, alk phos at 224. This appears to be elevated compared to prior admission. Serology panel unremarkable. Urinalysis pending. Gallbladder ultrasound reveals no evidence of acute cholecystitis. CT abdomen pelvis revealed no acute findings. Chest x- ray is consistent with fluid overload state. Patient will be admitted with consults to nephrology, GI, cardiology. Undiagnosed new problem with uncertain prognosis? @ -No Drug Therapy requiring intensive monitoring for toxicity (Heparin, Nitro, Insulin, Cardizem)? @ -No Were any procedures done? @ -No Diagnosis/symptom? @ -Nausea vomiting diarrhea, dyspnea Acute, or Chronic, or Acute on Chronic? @ -Acute Uncomplicated (without systemic symptoms) or Complicated (systemic symptoms)? @ -Complicated Side effects of treatment? @ -No Exacerbation, Progression, or Severe Exacerbation? @ -No Poses a threat to life or bodily function? How? (Chest pain, USA, IA, pneumonia, PE, COPD, DKA, ARF, appy, cholecystitis, CVA, Diverticulitis, Homicidal, Suicidal, threat to staff... and all critical care pts) @ -Unlikely (Josue Torres) 68 female to the ER for evaluation, patient will be admitted for further evaluation and monitoring (Mayank Clements) - Lab Data Lab Results 05/30/23 05/30/23 05/30/23 Range/Units 20:24 20:24 20:24 WBC 4.0 (3.8-10.6) k/uL RBC 2.30 L (3.80-5.40) m/uL Hgb 8.1 L (11.4-16.0) gm/dL Hct 23.6 L (34.0-46.0) % MCV 102.4 H (80.0-100.0) fL MCH 35.1 H (25.0-35.0) pg MCHC 34.3 (31.0-37.0) g/dL RDW 16.2 H (11.5-15.5) % Plt Count 165 (150-450) k/uL MPV 8.9 Neutrophils % (Manual) 54 % Band Neuts % (Manual) 30 % Lymphocytes % (Manual) 7 % Monocytes % (Manual) 4 % Eosinophils % (Manual) 4 % Metamyelocytes % 2 % Neutrophils # (Manual) 3.30 (1.3-7.7) k/uL Lymphocytes # (Manual) 0.28 L (1.0-4.8) k/uL Monocytes # (Manual) 0.16 (0-1.0) k/uL Eosinophils # (Manual) 0.16 (0-0.7) k/uL Metamyelocytes # (Man) 0.08 H (0) k/uL Nucleated RBCs 0 (0-0) /100 WBC Manual Slide Review Performed Toxic Vacuolation Present Large Platelets Present Polychromasia Present Anisocytosis Slight Macrocytosis Moderate PT (10.0-12.5) sec INR (<1.2) APTT (22.0-30.0) sec Sodium 141 (137-145) mmol/L Potassium 3.4 L (3.5-5.1) mmol/L Chloride 100 (98-107) mmol/L Carbon Dioxide 30 (22-30) mmol/L Anion Gap 11 mmol/L BUN 39 H (7-17) mg/dL Creatinine 6.53 H (0.52-1.04) mg/dL Est GFR (CKD-EPI)AfAm 7 (>60 ml/min/1.73 sqM) Est GFR (CKD-EPI)NonAf 6 (>60 ml/min/1.73 sqM) Glucose 105 H (74-99) mg/dL Calcium 8.4 (8.4-10.2) mg/dL Magnesium 1.9 (1.6-2.3) mg/dL Total Bilirubin 1.9 H (0.2-1.3) mg/dL AST 414 H (14-36) U/L ALT 154 H (4-34) U/L Alkaline Phosphatase 224 H (38-126) U/L NT-Pro-B Natriuret Pep 3270 pg/mL Total Protein 6.4 (6.3-8.2) g/dL Albumin 3.0 L (3.5-5.0) g/dL Amylase 49 (30-110) U/L Lipase 315 H (23-300) U/L Influenza Type A (PCR) Not Detected (Not Detectd) Influenza Type B (PCR) Not Detected (Not Detectd) RSV (PCR) Not Detected (Not Detectd) SARS-CoV-2 (PCR) Not Detected (Not Detectd) 05/30/23 Range/Units 20:24 WBC (3.8-10.6) k/uL RBC (3.80-5.40) m/uL Hgb (11.4-16.0) gm/dL Hct (34.0-46.0) % MCV (80.0-100.0) fL MCH (25.0-35.0) pg MCHC (31.0-37.0) g/dL RDW (11.5-15.5) % Plt Count (150-450) k/uL MPV Neutrophils % (Manual) % Band Neuts % (Manual) % Lymphocytes % (Manual) % Monocytes % (Manual) % Eosinophils % (Manual) % Metamyelocytes % % Neutrophils # (Manual) (1.3-7.7) k/uL Lymphocytes # (Manual) (1.0-4.8) k/uL Monocytes # (Manual) (0-1.0) k/uL Eosinophils # (Manual) (0-0.7) k/uL Metamyelocytes # (Man) (0) k/uL Nucleated RBCs (0-0) /100 WBC Manual Slide Review Toxic Vacuolation Large Platelets Polychromasia Anisocytosis Macrocytosis PT 10.7 (10.0-12.5) sec INR 1.0 (<1.2) APTT 18.0 L (22.0-30.0) sec Sodium (137-145) mmol/L Potassium (3.5-5.1) mmol/L Chloride (98-107) mmol/L Carbon Dioxide (22-30) mmol/L Anion Gap mmol/L BUN (7-17) mg/dL Creatinine (0.52-1.04) mg/dL Est GFR (CKD-EPI)AfAm (>60 ml/min/1.73 sqM) Est GFR (CKD-EPI)NonAf (>60 ml/min/1.73 sqM) Glucose (74-99) mg/dL Calcium (8.4-10.2) mg/dL Magnesium (1.6-2.3) mg/dL Total Bilirubin (0.2-1.3) mg/dL AST (14-36) U/L ALT (4-34) U/L Alkaline Phosphatase (38-126) U/L NT-Pro-B Natriuret Pep pg/mL Total Protein (6.3-8.2) g/dL Albumin (3.5-5.0) g/dL Amylase (30-110) U/L Lipase (23-300) U/L Influenza Type A (PCR) (Not Detectd) Influenza Type B (PCR) (Not Detectd) RSV (PCR) (Not Detectd) SARS-CoV-2 (PCR) (Not Detectd) Disposition <Josue Torres - Last Filed: 05/30/23 23:59> Is patient prescribed a controlled substance at d/c from ED?: No Time of Disposition: 00:00 <Mayank Clements - Last Filed: 06/06/23 23:54> Clinical Impression: Nausea and vomiting, Leukocytosis, End stage renal disease, Choledocholithiasis, Cholelithiasis, Elevated liver enzymes, Dehydration Disposition: ADMITTED IP TO THIS HOSP Condition: Fair
--- NOTE | 2023-05-30 22:57 | XR ---
EXAMINATION TYPE: XR chest 2V DATE OF EXAM: 05/30/2023 COMPARISON: Chest x-ray May 11, 2023 HISTORY: Dyspnea. TECHNIQUE: Frontal and lateral views of the chest are obtained. FINDINGS: Evaluation is suboptimal due to large body habitus. More prominent cardiomegaly with more prominent mild to moderate central vascular congestion on current study. No large pleural effusion or pneumothorax seen bilaterally. The osseous structures are intact. IMPRESSION: Findings consistent with CHF exacerbation/fluid overload state are present.
--- NOTE | 2023-05-30 23:01 | CT ---
EXAMINATION TYPE: CT abdomen pelvis wo con DATE OF EXAM: 05/30/2023 HISTORY: PT presents to for c/c of nausea, vomiting, diarrhea that began this morning CT DLP: 1249.1 mGycm. Automated Exposure Control for Dose Reduction was Utilized. TECHNIQUE: CT scan of the abdomen and pelvis is performed without oral or IV contrast. COMPARISON: NONE FINDINGS: Within the limitations of a non-contrast study, the following observations are made. LUNG BASES: Small tiny left pleural effusion with associated left basilar compressive atelectasis. De pendent atelectasis and/or consolidation right lung base. Cardiomegaly is seen. Coronary artery calci fication is partially imaged. LIVER/GB: Small dependent calcified gallstones. Gallbladder has no surrounding ill-defined fluid and fat stranding PANCREAS: No significant abnormality is seen. SPLEEN: No significant abnormality is seen. ADRENALS: No significant abnormality is seen. KIDNEYS: Marked cortical thinning in both kidneys consistent with products of chronic medical renal d isease. No hydronephrosis seen bilaterally. Poorly distended bladder. BOWEL: No significant abnormality is seen. GENITAL ORGANS: Uterus is surgically absent. LYMPH NODES: No greater than 1cm abdominal or pelvic lymph nodes are appreciated. OSSEOUS STRUCTURES: No significant abnormality is seen. OTHER: Mild to moderate calcified plaque of the aorta extends into branch vessels. IMPRESSION: 1. No bowel obstruction. No acute findings identified to account for patient's symptoms.
--- NOTE | 2023-05-30 23:18 | US ---
EXAMINATION TYPE: US gallbladder DATE OF EXAM: 05/30/2023 COMPARISON: CT: Today, US: 05/11/23 CLINICAL INDICATION: Female, 68 years old with history of N V elevated LFTs; N/V today TECHNIQUE: Multiple sonographic images of the right upper quadrant are obtained. FINDINGS: EXAM MEASUREMENTS: Liver Length: 23.4 cm Gallbladder Wall: 0.2 cm CBD: 0.4 cm Right Kidney: 10.9 x4.2 x 4.0 cm STEEL PICKLER NOTES: Pancreas: wnl Liver: heterogeneous and hepatomegaly Gallbladder: Multiple gallstones seen near neck Evidence for sonographic Alvarez's sign: No CBD: wnl Right Kidney: wnl Hepatomegaly redemonstrated with heterogeneous hyperechoic appearance of the liver noted. Internal ga llstones near the neck redemonstrated. No adjacent fluid or wall thickening. Negative sonographic Mur phy's sign. No right-sided hydronephrosis. Cortical volume loss noted in the right kidney. Findings c onsistent with product of chronic medical renal disease. IMPRESSION: Hepatomegaly redemonstrated. Heterogeneous hyperechoic appearance of the liver suggesting diffuse fatty infiltrative hepatocellular disease. No adjacent ascites. Gallstones redemonstrated wi thout ultrasound evidence for acute cholecystitis.
[2023-05-31] MEDS ORDERED: NALOXONE 0.4 MG/ML 1 ML VIAL IV PRN (00:01)
[2023-05-31] MEDS: FUROSEMIDE 100 MG in SODIUM CHLORIDE 0.9% 90 ML IV SCH (01:47)
[2023-05-31] MEDS: MIDODRINE 5 MG TAB PO SCH (03:40)
[2023-05-31] MEDS: ONDANSETRON 4 MG/2 ML VIAL IVP PRN (06:40)
[2023-05-31 08:30] LABS: Glucose,Whole Blood 110 mg/dL (70-110)
[2023-05-31] MEDS ORDERED: traZODone HCL 100 MG TAB PO PRN (09:44)
--- NOTE | 2023-05-31 10:09 | P.NPCON ---
History of Present Illness - Reason for Consult end stage renal disease - History of Present Illness Reason for consultation: End-stage renal disease History of present illness: Patient is a 68-year-old female seen in renal consultation for end-stage renal disease. She is maintained on hemodialysis on Saturday schedule. Patient states she went to hemodialysis yesterday only got about 30 minutes of treatment as the graft infiltrated. Patient states that she was also having vomiting and diarrhea later in the afternoon and came to the hospital. Patient was recently admitted and was noted to have gallstones but no surgery was done. She underwent CT of the abdomen and pelvis which showed no bowel obstructions or any other acute findings. She also underwent gallbladder ultrasound which showed gallstones but no evidence of acute cholecystitis. Patient has longstanding history of diabetes. Denies history of coronary artery disease. Denies chest pain. She did feel dyspneic prior to admission. Chest x-ray was suggestive of fluid overload. She did have a temperature of 100 F on admission. Also complains of chills prior to admission but none now. Vital signs are stable. General: No acute distress. HEENT: Head exam is unremarkable. LUNGS: No audible rhonchi or wheezes. HEART: Rate and Rhythm are regular. ABDOMEN: Obese, nontender. EXTREMITITES: 1+ edema. 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 6 years. Last Myocardial Infarction Date:: Unknown History of Any Multi-Drug Resistant Organisms: None Reported Past Surgical History: Section, Hysterectomy, Orthopedic Surgery Additional Past Surgical History / Comment(s): Had open thrombectomy left axillary graft on 12-21-21,BONE TUMOR REMOVED FROM LT FINGER AND REPLACED WITH BONE FROM ELBOW. DIALYSIS FISTULA rt arm-old, lasik rt eye surgery, right upper ext. left AV graft revision 03-31-20 Past Anesthesia/Blood Transfusion Reactions: Postoperative Nausea & Vomiting (PONV) Past Psychological History: No Psychological Hx Reported Smoking Status: Never smoker Past Alcohol Use History: None Reported Past Drug Use History: None Reported - Past Family History Mother Family Medical History: Cancer Brother(s) Family Medical History: Cancer Medications and Allergies Home Medications Medication Instructions Recorded Confirmed Type Aspirin 325 mg PO DAILY@1600 07/28/19 05/31/23 History Levothyroxine Sodium [Synthroid] 150 mcg PO MOTUWETHFR 03/25/20 05/31/23 History carvediloL 25 mg PO BID 08/16/21 05/31/23 History Levothyroxine Sodium [Synthroid] 225 mcg PO SUSA 12/20/21 05/31/23 History Insulin Glargine,Hum.rec.anlog 32 units SQ BID 07/21/22 05/31/23 History [Lantus Solostar Pen] Insulin Lispro [humaLOG Kwikpen] 22 unit SQ TID-W/MEALS 07/21/22 05/31/23 History Nephro-Nav 1 cap PO DAILY@1600 07/21/22 05/31/23 History Sevelamer [Renvela] 1,600 mg PO TID-W/MEALS 10/17/22 05/31/23 History Simvastatin [Zocor] 40 mg PO HS 10/17/22 05/31/23 History Midodrine [ProAmatine] 10 mg PO TID PRN 05/31/23 05/31/23 History Pantoprazole Sodium [Protonix] 20 mg PO DAILY 05/31/23 05/31/23 History traZODone HCL [Desyrel] 100 mg PO HS PRN 05/31/23 05/31/23 History Allergies Allergy/AdvReac Type Severity Reaction Status Date / Time No Known Allergies Allergy Verified 05/31/23 09:34 Physical Exam Vitals: Vital Signs Temp Pulse Pulse Resp BP BP Pulse Ox 05/31/23 08:00 99.3 F 72 16 97/47 93 L 05/31/23 06:28 105/46 05/31/23 04:40 99/47 05/31/23 04:10 107/45 05/31/23 03:30 100/45 05/31/23 03:26 98.2 F 71 20 94/45 94 L 05/31/23 01:09 110/48 05/31/23 01:03 100 F H 76 18 98/47 93 L 05/30/23 20:32 98.4 F 16 94 L 05/30/23 20:01 94 L 05/30/23 20:00 88 L 05/30/23 18:19 100.0 F H 89 12 109/32 94 L Intake and Output 05/30/23 05/31/23 05/31/23 22:59 06:59 14:59 Other: Weight 141 kg Results - Lab Results Most recent lab results Calcium 8.4 mg/dL (8.4-10.2) 05/30/23 20:24 Magnesium 1.9 mg/dL (1.6-2.3) 05/30/23 20:24 05/30/23 20:24 05/30/23 20:24 Assessment and Plan Plan: Assessment: 1. End-stage renal disease maintained on hemodialysis on Saturday schedule via AV graft. 2. Infiltrated AV graft. Vascular surgery consulted. 3. Nausea and vomiting. CT showed no acute process. Patient does have gallstones. Surgery and GI consulted. 4. Mild volume overload. 5. Hypotension maintained on midodrine. 6. Diabetes mellitus. 7. Chronic kidney disease mineral bone disease maintained on Renvela. 8. Anemia of chronic kidney disease. Plan: Hemodialysis today once use of access cleared by vascular surgery. Plan for another treatment tomorrow per her outpatient schedule. Check phosphorus level. Check iron studies. Maintain midodrine. Hold for systolic blood pressure greater than 110. Follow-up echocardiogram. Thank you for the consultation. I will continue to follow the patient with you during her hospital stay.
--- NOTE | 2023-05-31 10:59 | P.CONS ---
History of Present Illness - Reason for Consult Consult date: 05/31/23 Nausea and vomiting, history of biliary hyperkinesia Requesting physician: Josue Torres - Chief Complaint Nausea and vomiting, infiltrated fistula - History of Present Illness This is a pleasant 68-year-old female with a history of end-stage renal disease on hemodialysis, congestive heart failure, obesity, hyperlipidemia, and diabetes mellitus who presented to the emergency department with complaints of nausea, vomiting and diarrhea. Apparently yesterday she went for hemodialysis and they infiltrated her fistula she was unable to get hemodialysis and presented to the emergency department. She was noted to have elevated LFTs but apparently may have some history with her gallbladder and was recently worked up with gallbladder ultrasound and HIDA scan done in April 2023. HIDA scan reported biliary hypokinesia. No obstruction identified. She denies any the abdominal pain, still has some nausea but has not vomited recently. CT abdomen and pelvis with no acute findings. Gallbladder ultrasound reports hepatomegaly redemonstrated. Heterogeneous hyperechoic appearance of the liver suggesting diffuse fatty infiltrative hepatocellular disease. No adjacent ascites. Gallstones redemonstrated without ultrasound evidence for acute cholecystitis. She had a low-grade temp of 100.0 on admission. Labs WBC 4.0 hemoglobin 8.1 hematocrit 23 platelet count 165,000 INR 1.0 sodium 141 potassium 3.4 BUN 39 creatinine 6.5 total bilirubin 1.9 AST 414 ALT 154 alkaline phosphatase 224 amylase 49 lipase 315 Review of Systems REVIEW OF SYSTEMS: CARDIOPULMONARY: No chest pain or shortness of breath. Gastrointestinal: No abdominal pain. Patient is having nausea and vomiting. No hematemesis, coffee-ground emesis. No rectal bleeding, or melena. GENITOURINARY: No dysuria or hematuria. MUSCULOSKELETAL: Reports normal range of motion. SKIN: No rashes. No jaundice. ENDOCRINE: No chills, fevers. No excessive weight gain or loss. No polydipsia or polyuria. PSYCHIATRIC: Unremarkable. NEUROLOGY: No change in mental status. Denies dizziness, headache. ENT: Vision unremarkable. CONSTITUTIONAL: No recent weight loss. No fever, chills, night sweats. 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 6 years. Last Myocardial Infarction Date:: Unknown History of Any Multi-Drug Resistant Organisms: None Reported Past Surgical History: Section, Hysterectomy, Orthopedic Surgery Additional Past Surgical History / Comment(s): Had open thrombectomy left axillary graft on 12-21-21,BONE TUMOR REMOVED FROM LT FINGER AND REPLACED WITH BONE FROM ELBOW. DIALYSIS FISTULA rt arm-old, lasik rt eye surgery, right upper ext. left AV graft revision 03-31-20 Past Anesthesia/Blood Transfusion Reactions: Postoperative Nausea & Vomiting ( PONV) Past Psychological History: No Psychological Hx Reported Smoking Status: Never smoker Past Alcohol Use History: None Reported Past Drug Use History: None Reported - Past Family History Mother Family Medical History: Cancer Brother(s) Family Medical History: Cancer Medications and Allergies Home Medications Medication Instructions Recorded Confirmed Type Aspirin 325 mg PO DAILY@1600 07/28/19 05/31/23 History Levothyroxine Sodium [Synthroid] 150 mcg PO MOTUWETHFR 03/25/20 05/31/23 History carvediloL 25 mg PO BID 08/16/21 05/31/23 History Levothyroxine Sodium [Synthroid] 225 mcg PO SUSA 12/20/21 05/31/23 History Insulin Glargine,Hum.rec.anlog 32 units SQ BID 07/21/22 05/31/23 History [Lantus Solostar Pen] Insulin Lispro [humaLOG Kwikpen] 22 unit SQ TID-W/MEALS 07/21/22 05/31/23 History Nephro-Nav 1 cap PO DAILY@1600 07/21/22 05/31/23 History Sevelamer [Renvela] 1,600 mg PO TID-W/MEALS 10/17/22 05/31/23 History Simvastatin [Zocor] 40 mg PO HS 10/17/22 05/31/23 History Midodrine [ProAmatine] 10 mg PO TID PRN 05/31/23 05/31/23 History Pantoprazole Sodium [Protonix] 20 mg PO DAILY 05/31/23 05/31/23 History traZODone HCL [Desyrel] 100 mg PO HS PRN 05/31/23 05/31/23 History Allergies Allergy/AdvReac Type Severity Reaction Status Date / Time No Known Allergies Allergy Verified 05/31/23 09:34 Physical Exam Vitals: Vital Signs Temp Pulse Pulse Resp BP BP Pulse Ox 05/31/23 06:28 105/46 05/31/23 04:40 99/47 05/31/23 04:10 107/45 05/31/23 03:30 100/45 05/31/23 03:26 98.2 F 71 20 94/45 94 L 05/31/23 01:09 110/48 05/31/23 01:03 100 F H 76 18 98/47 93 L 05/30/23 20:32 98.4 F 16 94 L 05/30/23 20:01 94 L 05/30/23 20:00 88 L 05/30/23 18:19 100.0 F H 89 12 109/32 94 L Intake and Output 05/30/23 05/31/23 05/31/23 22:59 06:59 14:59 Other: Weight 141 kg General appearance: The patient is alert, oriented, appears in no acute distress. HET: Head is normocephalic and atraumatic. Conjunctiva pink. Sclera anicteric. Neck: Supple without lymphadenopathy. Trachea midline. Heart: Regular. Lungs: Equal expansion, normal respiratory effort. Abdomen: Soft, nontender, nondistended with bowel sounds. No guarding or rigidity. Skin: No rashes. No jaundice. Extremities: Normal skin color and turgor. No pedal edema. Neurological: No focal deficits. Alert and oriented x3. Results CBC & Chem 7: 05/30/23 20:24 05/30/23 20:24 Labs: Abnormal Lab Results - Last 24 Hours (Table) 05/30/23 05/30/23 05/30/23 Range/Units 20:24 20:24 20:24 RBC 2.30 L (3.80-5.40) m/uL Hgb 8.1 L (11.4-16.0) gm/dL Hct 23.6 L (34.0-46.0) % MCV 102.4 H (80.0-100.0) fL MCH 35.1 H (25.0-35.0) pg RDW 16.2 H (11.5-15.5) % Lymphocytes # (Manual) 0.28 L (1.0-4.8) k/uL Metamyelocytes # (Man) 0.08 H (0) k/uL APTT 18.0 L (22.0-30.0) sec Potassium 3.4 L (3.5-5.1) mmol/L BUN 39 H (7-17) mg/dL Creatinine 6.53 H (0.52-1.04) mg/dL Glucose 105 H (74-99) mg/dL Total Bilirubin 1.9 H (0.2-1.3) mg/dL AST 414 H (14-36) U/L ALT 154 H (4-34) U/L Alkaline Phosphatase 224 H (38-126) U/L Albumin 3.0 L (3.5-5.0) g/dL Lipase 315 H (23-300) U/L Comments: CT abdomen and pelvis without contrast reports no bowel obstruction. No acute findings identified to account for patient's symptoms. Gallbladder ultrasound reports hepatomegaly redemonstrated. Heterogeneous hyperechoic appearance of the liver suggesting diffuse fatty infiltrative hepatocellular disease. No adjacent ascites. Gallstones redemonstrated without ultrasound evidence for acute cholecystitis. She had a low-grade temp of 100.0 on admission. Chest x-ray reports findings consistent with CHF exacerbation/fluid overload state present Assessment and Plan (1) Nausea and vomiting Narrative/Plan: 68-year-old female presenting with nausea and vomiting. Patient is a hemodialysis patient who was supposed to get hemodialysis yesterday however after 30 minutes her fistula infiltrated. She came in and presented with nausea and vomiting, fluid overload. Was noted to have elevated liver enzymes as well. Patient does have a history of elevated liver enzymes in the past. She has a history of hepatocellular disease as noted on CT abdomen pelvis and prev ious imaging. Likely secondary to diabetes mellitus and hepatic steatosis. Gallbladder ultrasound does show some gallstones without any CBD dilation. CT abdomen pelvis with no acute findings. Will treat symptomatically for nausea and vomiting and can trend LFTs. Will also consult general surgery for cholelithiasis, elevated liver enzymes and history of biliary hyperkinesia seen on recent HIDA scan done on 05/13/2023. Current Visit: Yes Status: Acute Code(s): R11.2 - NAUSEA WITH VOMITING, UNSPECIFIED SNOMED Code(s): 44934407 (2) Elevated liver enzymes Narrative/Plan: possibly superimposed from underlying hepatocellular disease from diabetes mellitus and hepatic steatosis Current Visit: No Status: Acute Code(s): R74.8 - ABNORMAL LEVELS OF OTHER SERUM ENZYMES SNOMED Code(s): 823496773 (3) End stage renal disease Narrative/Plan: Patient end-stage renal disease on hemodialysis. Continue with recommendations from nephrology Current Visit: No Status: Acute Code(s): N18.6 - END STAGE RENAL DISEASE SNOMED Code(s): 90129623 Plan: 1. Continue symptomatic and supportive care 2. Continue antiemetics as ordered 3. Continue Protonix as ordered for GI prophylaxis 4. Repeat CBC, CMP 5. Will consult general surgery for cholelithiasis history of biliary hypokinesia
--- NOTE | 2023-05-31 11:38 | P.GSCN ---
History of Present Illness Consult date: 05/31/23 Reason for Consult: Right upper fistula infiltrated at dialysis Requesting physician: Bin Stevens History of present illness: This is a 68-year-old female who presented to the emergency department for nausea and vomiting and diarrhea. She has history of diabetes mellitus, end- stage renal disease on hemodialysis, hyperlipidemia, and morbid obesity. She gets her dialysis on Saturday. Yesterday she went for her hemodialysis and apparently the hemodialysis nurse had infiltrated her loop graft. She was only able to get 30 minutes of dialysis. She was seen and examined today from nephrology who requested consultation to vascular surgery for evaluation of infiltrated right upper extremity fistula. Patient had a right upper extremity axillary loop graft done by Dr. Chen 01/10/2023. Since that time she has had no difficulty with dialysis. States yesterday maybe just had an off day. She is currently receiving hemodialysis without any difficulty. She denies any pain in the right upper extremity, there is no significant bruising or hematoma noted. She denies any shortness of breath, chest pain, nausea and vomiting has improved. Review of Systems A 14 point review systems was completed all pertinent positives and negatives as stated in the HPI. 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 6 years. Last Myocardial Infarction Date:: Unknown History of Any Multi-Drug Resistant Organisms: None Reported Past Surgical History: Section, Hysterectomy, Orthopedic Surgery Additional Past Surgical History / Comment(s): Had open thrombectomy left axillary graft on 12-21-21,BONE TUMOR REMOVED FROM LT FINGER AND REPLACED WITH BONE FROM ELBOW. DIALYSIS FISTULA rt arm-old, lasik rt eye surgery, right upper ext. left AV graft revision 03-31-20 Past Anesthesia/Blood Transfusion Reactions: Postoperative Nausea & Vomiting (PONV) Past Psychological History: No Psychological Hx Reported Smoking Status: Never smoker Past Alcohol Use History: None Reported Past Drug Use History: None Reported - Past Family History Mother Family Medical History: Cancer Brother(s) Family Medical History: Cancer Medications and Allergies Home Medications Medication Instructions Recorded Confirmed Type Aspirin 325 mg PO DAILY@1600 07/28/19 05/31/23 History Levothyroxine Sodium [Synthroid] 150 mcg PO MOTUWETHFR 03/25/20 05/31/23 History carvediloL 25 mg PO BID 08/16/21 05/31/23 History Levothyroxine Sodium [Synthroid] 225 mcg PO SUSA 12/20/21 05/31/23 History Insulin Glargine,Hum.rec.anlog 32 units SQ BID 07/21/22 05/31/23 History [Lantus Solostar Pen] Insulin Lispro [humaLOG Kwikpen] 22 unit SQ TID-W/MEALS 07/21/22 05/31/23 History Nephro-Nav 1 cap PO DAILY@1600 07/21/22 05/31/23 History Sevelamer [Renvela] 1,600 mg PO TID-W/MEALS 10/17/22 05/31/23 History Simvastatin [Zocor] 40 mg PO HS 10/17/22 05/31/23 History Midodrine [ProAmatine] 10 mg PO TID PRN 05/31/23 05/31/23 History Pantoprazole Sodium [Protonix] 20 mg PO DAILY 05/31/23 05/31/23 History traZODone HCL [Desyrel] 100 mg PO HS PRN 05/31/23 05/31/23 History Allergies Allergy/AdvReac Type Severity Reaction Status Date / Time No Known Allergies Allergy Verified 05/31/23 09:34 Surgical - Exam Vital Signs Temp Pulse Resp BP Pulse Ox 100.0 F H 89 12 109/32 94 L 05/30/23 18:19 05/30/23 18:19 05/30/23 18:19 05/30/23 18:19 05/30/23 18:19 General appearance: The patient is alert, oriented, appears in no acute distress. Morbidly obese HET: Head is normocephalic and atraumatic. Pupils are equal and reactive. Neck: Supple. Heart: Regular. Lungs: Equal expansion, normal respiratory effort. Abdomen: Soft, nontender, nondistended. Extremities: Normal skin color and turgor. Right upper extremity loop graft palpable thrill, currently receiving hemodialysis without any difficulty. No hematoma or bruising noted. Neurological: No focal deficits. Alert and oriented. Results - Labs 05/30/23 20:24 05/30/23 20:24 Abnormal Lab Results - Last 24 Hours (Table) 05/30/23 05/30/23 05/30/23 Range/Units 20:24 20:24 20:24 RBC 2.30 L (3.80-5.40) m/uL Hgb 8.1 L (11.4-16.0) gm/dL Hct 23.6 L (34.0-46.0) % MCV 102.4 H (80.0-100.0) fL MCH 35.1 H (25.0-35.0) pg RDW 16.2 H (11.5-15.5) % Lymphocytes # (Manual) 0.28 L (1.0-4.8) k/uL Metamyelocytes # (Man) 0.08 H (0) k/uL APTT 18.0 L (22.0-30.0) sec Potassium 3.4 L (3.5-5.1) mmol/L BUN 39 H (7-17) mg/dL Creatinine 6.53 H (0.52-1.04) mg/dL Glucose 105 H (74-99) mg/dL Total Bilirubin 1.9 H (0.2-1.3) mg/dL AST 414 H (14-36) U/L ALT 154 H (4-34) U/L Alkaline Phosphatase 224 H (38-126) U/L Albumin 3.0 L (3.5-5.0) g/dL Lipase 315 H (23-300) U/L Diabetes panel 05/30/23 Range/Units 20:24 Sodium 141 (137-145) mmol/L Potassium 3.4 L (3.5-5.1) mmol/L Chloride 100 (98-107) mmol/L Carbon Dioxide 30 (22-30) mmol/L BUN 39 H (7-17) mg/dL Creatinine 6.53 H (0.52-1.04) mg/dL Glucose 105 H (74-99) mg/dL Calcium 8.4 (8.4-10.2) mg/dL AST 414 H (14-36) U/L ALT 154 H (4-34) U/L Alkaline Phosphatase 224 H (38-126) U/L Total Protein 6.4 (6.3-8.2) g/dL Albumin 3.0 L (3.5-5.0) g/dL Calcium panel 05/30/23 Range/Units 20:24 Calcium 8.4 (8.4-10.2) mg/dL Albumin 3.0 L (3.5-5.0) g/dL Pituitary panel 05/30/23 Range/Units 20:24 Sodium 141 (137-145) mmol/L Potassium 3.4 L (3.5-5.1) mmol/L Chloride 100 (98-107) mmol/L Carbon Dioxide 30 (22-30) mmol/L BUN 39 H (7-17) mg/dL Creatinine 6.53 H (0.52-1.04) mg/dL Glucose 105 H (74-99) mg/dL Calcium 8.4 (8.4-10.2) mg/dL Adrenal panel 05/30/23 Range/Units 20:24 Sodium 141 (137-145) mmol/L Potassium 3.4 L (3.5-5.1) mmol/L Chloride 100 (98-107) mmol/L Carbon Dioxide 30 (22-30) mmol/L BUN 39 H (7-17) mg/dL Creatinine 6.53 H (0.52-1.04) mg/dL Glucose 105 H (74-99) mg/dL Calcium 8.4 (8.4-10.2) mg/dL Total Bilirubin 1.9 H (0.2-1.3) mg/dL AST 414 H (14-36) U/L ALT 154 H (4-34) U/L Alkaline Phosphatase 224 H (38-126) U/L Total Protein 6.4 (6.3-8.2) g/dL Albumin 3.0 L (3.5-5.0) g/dL Assessment and Plan Assessment: 1. End-stage renal disease requiring hemodialysis 2. Infiltrated loop graft during dialysis on 05/30/2023 currently functioning well 3. Nausea and vomiting 4. Morbid obesity (1) Nausea and vomiting Current Visit: Yes Status: Acute Code(s): R11.2 - NAUSEA WITH VOMITING, UNSPECIFIED SNOMED Code(s): 39057383 (2) Elevated liver enzymes Current Visit: No Status: Acute Code(s): R74.8 - ABNORMAL LEVELS OF OTHER SERUM ENZYMES SNOMED Code(s): 632590254 (3) End stage renal disease Current Visit: No Status: Acute Code(s): N18.6 - END STAGE RENAL DISEASE SNOMED Code(s): 06346499 Plan: 1. Patient is currently undergoing hemodialysis without any difficulty 2. There is no indication for any vascular surgical intervention 3. Continue to access right upper extremity graft 4. Continue dialysis recommendations per nephrology Thank you for this consultation, we will sign off at this time. The impression and plan of care has been dictated as directed. Dr. Chen I performed a history and examination of this patient, discussed the same with the dictator. I agree with the dictator's note ,documented as a scribe. Any additional findings or plans will be noted.
--- NOTE | 2023-05-31 13:08 | P.GSCN ---
History of Present Illness Consult date: 05/31/23 History of present illness: CHIEF COMPLAINT: Nausea and vomiting HISTORY OF PRESENT ILLNESS: This is a 68-year-old female who presented to the hospital with complaints of nausea, vomiting and diarrhea. She denies any abdominal pain at this time. Patient has a known history of end-stage renal disease she is receiving hemodialysis. Past surgical history does include a C- section and hysterectomy. She had a CT scan abdomen pelvis that showed no evidence of bowel obstruction. Gallbladder ultrasound had shown evidence of cholelithiasis. Patient did have a low-grade temp of 100 and has mildly elevated LFTs. Patient reports to feeling chilled. Patient also evaluated by GI service. Patient seen and examined with Dr. 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 6 years. PAST SURGICAL HISTORY: Section, Hysterectomy, Orthopedic Surgery, Had open thrombectomy left axillary graft on 12-21-21,BONE TUMOR REMOVED FROM LT FINGER AND REPLACED WITH BONE FROM ELBOW. DIALYSIS FISTULA rt arm-old, lasik rt eye surgery, right upper ext. left AV graft revision 03-31-20 MEDICATIONS: See below ALLERGIES: See below SOCIAL HISTORY: No illicit drug use. REVIEW OF SYSTEMS: CONSTITUTIONAL: Denies fever or chills. HEENT: Denies blurred vision, vision changes, or eye pain. Denies hemoptysis CARDIOVASCULAR: Denies chest pain or pressure. RESPIRATORY: No shortness of breath. GASTROINTESTINAL: See HPI for pertinent findings HEMATOLOGIC: Denies bleeding disorders. GENITOURINARY: Denies any blood in urine or increased urinary frequency. SKIN: Denies pruitis. Denies rash. PHYSICAL EXAM: VITAL SIGNS: Reviewed GENERAL: Well-developed in no acute distress. HEENT: No sclera icterus. Extraocular movements grossly intact. Moist buccal mucosa. Head is atraumatic, normocephalic. No nasal drainage. ABDOMEN: Soft. Obese. Nondistended. nontender NEUROLOGIC: Alert and oriented. Cranial nerves II through XII grossly intact. LABORATORY DATA: WBC 4.0 Hgb 8.1 platelets 165 INR 1.0 Sodium is 141 potassium 3.4 creatinine 6.53 Total bilirubin 1.9 AST 414 ALT 154 alk phos 224 Troponin negative Lipase 315 Influenza, RSV and COVID-19 not detected IMAGING: CT scan abdomen pelvis reports no bowel obstruction. No acute findings identified. Gallbladder ultrasound reports hepatomegaly redemonstrated heterogenous hyperechoic appearance of the liver suggesting diffuse fatty infiltrative hepatocellular disease. No adjacent ascites. Gallstones redemonstrated without ultrasound evidence for acute cholecystitis. CBD within normal limits HIDA scan from May 13, 2023 reports biliary hypokinesia, EF 10%. No obstruction is identified. ASSESSMENT: 1. Cholelithiasis noted on ultrasound with nausea and vomiting 2. Biliary hypokinesia on prior HIDA scan 3. Mildly elevated LFTs with hepatocellular disease noted on ultrasound. 4. End-stage renal disease on hemodialysis 5. Diabetes mellitus 6. Mild fluid overload receiving hemodialysis today PLAN: -Patient tentatively scheduled for laparoscopic cholecystectomy on 06/03/[address] Andrews -Start clear liquid diet today -Continue supportive care -Management of hypokalemia per nephrology Physician Machine Grainer note has been reviewed by physician. Signing provider agrees with the documented findings, assessment, and plan of care. 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 6 years. Last Myocardial Infarction Date:: Unknown History of Any Multi-Drug Resistant Organisms: None Reported Past Surgical History: Section, Hysterectomy, Orthopedic Surgery Additional Past Surgical History / Comment(s): Had open thrombectomy left axillary graft on 12-21-21,BONE TUMOR REMOVED FROM LT FINGER AND REPLACED WITH BONE FROM ELBOW. DIALYSIS FISTULA rt arm-old, lasik rt eye surgery, right upper ext. left AV graft revision 03-31-20 Past Anesthesia/Blood Transfusion Reactions: Postoperative Nausea & Vomiting (PONV) Past Psychological History: No Psychological Hx Reported Smoking Status: Never smoker Past Alcohol Use History: None Reported Past Drug Use History: None Reported - Past Family History Mother Family Medical History: Cancer Brother(s) Family Medical History: Cancer Medications and Allergies Home Medications Medication Instructions Recorded Confirmed Type Aspirin 325 mg PO DAILY@1600 07/28/19 05/31/23 History Levothyroxine Sodium [Synthroid] 150 mcg PO MOTUWETHFR 03/25/20 05/31/23 History carvediloL 25 mg PO BID 08/16/21 05/31/23 History Levothyroxine Sodium [Synthroid] 225 mcg PO SUSA 12/20/21 05/31/23 History Insulin Glargine,Hum.rec.anlog 32 units SQ BID 07/21/22 05/31/23 History [Lantus Solostar Pen] Insulin Lispro [humaLOG Kwikpen] 22 unit SQ TID-W/MEALS 07/21/22 05/31/23 History Nephro-Nav 1 cap PO DAILY@1600 07/21/22 05/31/23 History Sevelamer [Renvela] 1,600 mg PO TID-W/MEALS 10/17/22 05/31/23 History Simvastatin [Zocor] 40 mg PO HS 10/17/22 05/31/23 History Midodrine [ProAmatine] 10 mg PO TID PRN 05/31/23 05/31/23 History Pantoprazole Sodium [Protonix] 20 mg PO DAILY 05/31/23 05/31/23 History traZODone HCL [Desyrel] 100 mg PO HS PRN 05/31/23 05/31/23 History Allergies Allergy/AdvReac Type Severity Reaction Status Date / Time No Known Allergies Allergy Verified 05/31/23 09:34 Surgical - Exam Vital Signs Temp Pulse Resp BP Pulse Ox 100.0 F H 89 12 109/32 94 L 05/30/23 18:19 05/30/23 18:19 05/30/23 18:19 05/30/23 18:19 05/30/23 18:19 Results - Labs 05/30/23 20:24 05/30/23 20:24 Abnormal Lab Results - Last 24 Hours (Table) 05/30/23 05/30/23 05/30/23 Range/Units 20:24 20:24 20:24 RBC 2.30 L (3.80-5.40) m/uL Hgb 8.1 L (11.4-16.0) gm/dL Hct 23.6 L (34.0-46.0) % MCV 102.4 H (80.0-100.0) fL MCH 35.1 H (25.0-35.0) pg RDW 16.2 H (11.5-15.5) % Lymphocytes # (Manual) 0.28 L (1.0-4.8) k/uL Metamyelocytes # (Man) 0.08 H (0) k/uL APTT 18.0 L (22.0-30.0) sec Potassium 3.4 L (3.5-5.1) mmol/L BUN 39 H (7-17) mg/dL Creatinine 6.53 H (0.52-1.04) mg/dL Glucose 105 H (74-99) mg/dL Total Bilirubin 1.9 H (0.2-1.3) mg/dL AST 414 H (14-36) U/L ALT 154 H (4-34) U/L Alkaline Phosphatase 224 H (38-126) U/L Albumin 3.0 L (3.5-5.0) g/dL Lipase 315 H (23-300) U/L Diabetes panel 05/30/23 Range/Units 20:24 Sodium 141 (137-145) mmol/L Potassium 3.4 L (3.5-5.1) mmol/L Chloride 100 (98-107) mmol/L Carbon Dioxide 30 (22-30) mmol/L BUN 39 H (7-17) mg/dL Creatinine 6.53 H (0.52-1.04) mg/dL Glucose 105 H (74-99) mg/dL Calcium 8.4 (8.4-10.2) mg/dL AST 414 H (14-36) U/L ALT 154 H (4-34) U/L Alkaline Phosphatase 224 H (38-126) U/L Total Protein 6.4 (6.3-8.2) g/dL Albumin 3.0 L (3.5-5.0) g/dL Calcium panel 05/30/23 Range/Units 20:24 Calcium 8.4 (8.4-10.2) mg/dL Albumin 3.0 L (3.5-5.0) g/dL Pituitary panel 05/30/23 Range/Units 20:24 Sodium 141 (137-145) mmol/L Potassium 3.4 L (3.5-5.1) mmol/L Chloride 100 (98-107) mmol/L Carbon Dioxide 30 (22-30) mmol/L BUN 39 H (7-17) mg/dL Creatinine 6.53 H (0.52-1.04) mg/dL Glucose 105 H (74-99) mg/dL Calcium 8.4 (8.4-10.2) mg/dL Adrenal panel 05/30/23 Range/Units 20:24 Sodium 141 (137-145) mmol/L Potassium 3.4 L (3.5-5.1) mmol/L Chloride 100 (98-107) mmol/L Carbon Dioxide 30 (22-30) mmol/L BUN 39 H (7-17) mg/dL Creatinine 6.53 H (0.52-1.04) mg/dL Glucose 105 H (74-99) mg/dL Calcium 8.4 (8.4-10.2) mg/dL Total Bilirubin 1.9 H (0.2-1.3) mg/dL AST 414 H (14-36) U/L ALT 154 H (4-34) U/L Alkaline Phosphatase 224 H (38-126) U/L Total Protein 6.4 (6.3-8.2) g/dL Albumin 3.0 L (3.5-5.0) g/dL
--- NOTE | 2023-05-31 13:30 | P.CRDCN ---
History of Present Illness Consult date: 05/31/23 Reason for Consult (text): CHF versus fluid overload History of present illness: History of present illness: This is a 68-year-old female with no previous parts representative, does not have cardiac history. She has a past medical history of end-stage renal disease on hemodialysis, diabetes mellitus, hypertension, hyperlipidemia, hypothyroidism, obstructive sleep apnea on CPAP. We have been asked to evaluate patient for CHF. Patient states that she had nausea vomiting diarrhea could not complete her dialysis treatment she also had chills. Abdominal distention. And dizziness. She denies having any chest pain. She denies having any blood in her stools. She states she did have some shortness of breath because she did not finish her dialysis treatment. She states she is a non-smoker. No lower extremity edema. Regarding gallbladder, patient states that she has been evaluated for gallbladder surgery but this has been put on hold. EKG sinus rhythm with no acute ST-T wave changes. Chest x-ray: Findings suggestive of CHF exacerbation. WBC 4, hemoglobin 8.1, platelet count 165. INR 1. Sodium 141, potassium 3.4, BUN 39 creatinine 6.5. Magnesium 1.9. Total bilirubin 1.9, AST 414, ALT 134, alkaline phosphatase 224. Troponin negative x 1. proBNP 3270. Influenza A, influenza B, RSV, COVID-19 not detected. Home cardiac medications: Aspirin 325 mg daily, Coreg 25 mg twice daily, simvastatin 40 mg at bedtime, patient is also on midodrine as needed and levothyroxine. Review Of Systems: At the time of my exam: CONSTITUTIONAL: Denies fever or chills. HEENT: Denies blurred vision, vision changes, or eye pain. Denies hemoptysis CARDIOVASCULAR: Denies chest pain. Denies orthopnea. Denies PND. Denies palpitations RESPIRATORY: Denies shortness of breath. GASTROINTESTINAL: Reports abdominal pain. Reports nausea or vomiting. HEMATOLOGIC: Denies bleeding disorders. GENITOURINARY: Denies any blood in urine. SKIN: Denies pruitis. Denies rash. Physical examination: Gen: This is a 68-year-old female in no acute distress VS: reviewed HEENT: Head is atraumatic, normocephalic. Pupils equal, round. Sclerae is anicteric. NECK: Supple. No JVD. LUNGS: Clear to auscultation. No wheezes or rhonchi. No intercostal retractions . HEART: Regular rate and rhythm. No murmur. ABDOMEN: Soft No tenderness. EXTREMITIES: No pedal edema. No calf tenderness. AV fistula right arm. NEUROLOGICAL: Patient is awake, alert and oriented x3. Assessment: End-stage renal disease on hemodialysis Mild fluid overload from and completed dialysis History of hypertension Diabetes mellitus type 2 Hyperlipidemia Hypothyroidism Obstructive sleep apnea Plan: Resume patient's home cardiac medications Patient will be scheduled for Lexiscan stress test to be performed before gallbladder surgery Obtain 2-D echocardiogram and Doppler study to assess cardiac structure and function Further recommendations to follow based upon clinical course Thank you kindly for this consultation. Nurse practitioner note has been reviewed, I agree with documented findings and plan of care. Patient was seen and examined. 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 6 years. Last Myocardial Infarction Date:: Unknown History of Any Multi-Drug Resistant Organisms: None Reported Past Surgical History: Section, Hysterectomy, Orthopedic Surgery Additional Past Surgical History / Comment(s): Had open thrombectomy left axillary graft on 12-21-21,BONE TUMOR REMOVED FROM LT FINGER AND REPLACED WITH BONE FROM ELBOW. DIALYSIS FISTULA rt arm-old, lasik rt eye surgery, right upper ext. left AV graft revision 03-31-20 Past Anesthesia/Blood Transfusion Reactions: Postoperative Nausea & Vomiting (PONV) Past Psychological History: No Psychological Hx Reported Smoking Status: Never smoker Past Alcohol Use History: None Reported Past Drug Use History: None Reported - Past Family History Mother Family Medical History: Cancer Brother(s) Family Medical History: Cancer Medications and Allergies Home Medications Medication Instructions Recorded Confirmed Type Aspirin 325 mg PO DAILY@1600 07/28/19 05/31/23 History Levothyroxine Sodium [Synthroid] 150 mcg PO MOTUWETHFR 03/25/20 05/31/23 History carvediloL 25 mg PO BID 08/16/21 05/31/23 History Levothyroxine Sodium [Synthroid] 225 mcg PO SUSA 12/20/21 05/31/23 History Insulin Glargine,Hum.rec.anlog 32 units SQ BID 07/21/22 05/31/23 History [Lantus Solostar Pen] Insulin Lispro [humaLOG Kwikpen] 22 unit SQ TID-W/MEALS 07/21/22 05/31/23 History Nephro-Nav 1 cap PO DAILY@1600 07/21/22 05/31/23 History Sevelamer [Renvela] 1,600 mg PO TID-W/MEALS 10/17/22 05/31/23 History Simvastatin [Zocor] 40 mg PO HS 10/17/22 05/31/23 History Midodrine [ProAmatine] 10 mg PO TID PRN 05/31/23 05/31/23 History Pantoprazole Sodium [Protonix] 20 mg PO DAILY 05/31/23 05/31/23 History traZODone HCL [Desyrel] 100 mg PO HS PRN 05/31/23 05/31/23 History Allergies Allergy/AdvReac Type Severity Reaction Status Date / Time No Known Allergies Allergy Verified 05/31/23 09:34 Physical Exam Vitals: Vital Signs Temp Pulse Pulse Resp BP BP Pulse Ox 05/31/23 08:00 99.3 F 72 16 97/47 93 L 05/31/23 06:28 105/46 05/31/23 04:40 99/47 05/31/23 04:10 107/45 05/31/23 03:30 100/45 05/31/23 03:26 98.2 F 71 20 94/45 94 L 05/31/23 01:09 110/48 05/31/23 01:03 100 F H 76 18 98/47 93 L 05/30/23 20:32 98.4 F 16 94 L 05/30/23 20:01 94 L 05/30/23 20:00 88 L 05/30/23 18:19 100.0 F H 89 12 109/32 94 L Intake and Output 05/30/23 05/31/23 05/31/23 22:59 06:59 14:59 Other: Weight 141 kg Results 05/30/23 20:24 05/30/23 20:24 Cardiac Enzymes 05/30/23 05/31/23 Range/Units 20:24 00:03 AST 414 H (14-36) U/L Troponin I <0.012 (0.000-0.034) ng/mL Coagulation 05/30/23 Range/Units 20:24 PT 10.7 (10.0-12.5) sec APTT 18.0 L (22.0-30.0) sec CBC 05/30/23 Range/Units 20:24 WBC 4.0 (3.8-10.6) k/uL RBC 2.30 L (3.80-5.40) m/uL Hgb 8.1 L (11.4-16.0) gm/dL Hct 23.6 L (34.0-46.0) % Plt Count 165 (150-450) k/uL Comprehensive Metabolic Panel 05/30/23 Range/Units 20:24 Sodium 141 (137-145) mmol/L Potassium 3.4 L (3.5-5.1) mmol/L Chloride 100 (98-107) mmol/L Carbon Dioxide 30 (22-30) mmol/L BUN 39 H (7-17) mg/dL Creatinine 6.53 H (0.52-1.04) mg/dL Glucose 105 H (74-99) mg/dL Calcium 8.4 (8.4-10.2) mg/dL AST 414 H (14-36) U/L ALT 154 H (4-34) U/L Alkaline Phosphatase 224 H (38-126) U/L Total Protein 6.4 (6.3-8.2) g/dL Albumin 3.0 L (3.5-5.0) g/dL Current Medications Generic Name Dose Route Start Last Admin Trade Name Freq PRN Reason Stop Dose Admin Midodrine 10 mg 05/31/23 03:35 05/31/23 06:29 Midodrine 5 Mg Tab PO 10 mg AC-TID MILTON Administration Naloxone HCl 0.2 mg 05/31/23 00:01 Naloxone 0.4 Mg/Ml 1 Ml Vial IV Q2M PRN Opioid Reversal Ondansetron HCl 4 mg 05/31/23 06:26 05/31/23 06:40 Ondansetron 4 Mg/2 Ml Vial IVP 4 mg Q6HR PRN Administration Nausea And Vomiting Intake and Output 05/30/23 05/31/23 05/31/23 22:59 06:59 14:59 Other: Weight 141 kg 05/30/23 20:24 05/30/23 20:24
[2023-05-31] MEDS ORDERED: LIDOCAINE 1% (10MG/ML) FOR IV START INTRADERMA PRN (14:15)
[2023-05-31 14:23] LABS: Glucose,Whole Blood 103 mg/dL (70-110)
[2023-05-31] MEDS: SEVELAMER 800 MG TAB PO SCH (14:29)
[2023-05-31] MEDS: LEVOTHYROXINE 75 MCG TAB PO SCH (14:30)
[2023-05-31] MEDS: DEXAMETHASONE SOD PHOSPHATE 4 MG/ML 1 ML VIAL IV ONE (14:31)
[2023-05-31] MEDS: LACTATED RINGERS 1,000 ML IV SCH (14:35)
[2023-05-31] MEDS: INSULIN ASPART (NovoLOG) 100 UNIT/ML VIAL SQ SCH (16:12)
[2023-05-31 17:27] LABS: Glucose,Whole Blood 129 mg/dL (70-110)
[2023-05-31] MEDS: FOLIC ACID-VIT B COMPLEX-VIT C 1 CAP PO SCH (18:06)
[2023-05-31] MEDS: carvediloL 12.5 MG TAB PO SCH (18:07)
[2023-05-31 18:50] LABS: Phosphorus 3.7 mg/dL (2.5-4.5)
[2023-05-31] MEDS: ATORVASTATIN 20 MG TAB PO SCH (19:57)
[2023-05-31 20:26] LABS: Glucose,Whole Blood 208 mg/dL (70-110)
[2023-05-31] MEDS: INSULIN DETEMIR (LEVEMIR) 100 UNIT/ML SYR SQ SCH (20:36)
--- NOTE | 2023-05-31 20:39 | P.HPIM ---
History of Present Illness H&P Date: 05/31/23 HISTORY OF PRESENT ILLNESS: 68-year-old female 89 office patient who was hospitalized recently at [facility] for abscess and infected armpit area with slight recurrent abdominal discomfort with gallbladder dyskinesia at the time. Patient has end-stage renal disease on hemodialysis 3 times a week also has known to have type 2 diabetes, obstructive sleep apnea, hypertension, hyperlipidemia, hypothyroidism, she brought to the emergency department because of intractable nausea vomiting and diarrhea could not complete dialysis yesterday with worsening fever and chills with abdominal distention without any significant chest pain no bloody stool. Also had infiltrate her fistula which the reason why here hemodialysis was stopped early. With her current symptoms and the significant abnormal liver function test from her last hospitalization which patient was study in detail and found to have biliary hypokinesia via HIDA scan done last month. Patient liver function test this time came back with total bilirubin of 1.9 with AST of 414 and ALT 154 with alkaline phosphatase 224 also lipase of 315 with amylase of 49 which make the diagnosis of subacute pancreatitis as well. Also she continued to have significant anemia with hemoglobin of 8.1 platelet count 1 65,000 patient creatinine was 6.5 with BUN of 39. Patient was seen and evaluated at the emergency department with above complaint COVID influenza and RSV were negative, CT of the abdomen and pelvis was performed again this time and showed no bowel obstruction with no acute finding identified to the amount of patient's symptoms of the pancreas visualized to be fine with small but prom inent calcification on the gallbladder as a gallstone with no surrounding ill- defined fluid and fat stranding. Gallbladder ultrasound was performed again as well and showed hepatomegaly with heterogeneous hyper echoic appearance of the liver suggestive of diffuse fatty infiltrate with hepatocellular disease with no adjacent ascites, gallstones redemonstrated without ultrasound evidence of acute cholecystitis. Patient was hospitalized and consult at this point gastroenterology for her recurrent symptoms with nausea and vomiting to conclude the possibility of gallbladder and gallstone with abnormal liver function test. And also to help to make decision whether her gallbladder should be removed or not. Cardiology consultation for cardiology clearance which patient has no history of cardiac disease no change on her EKG at this point or any change in cardiac enzymes. Nephrology consultation was requested to continue hemodialysis. Also request consult of vascular for her fistula. REVIEW OF SYSTEMS: CONSTITUTIONAL: Well-developed no acute respiratory distress. EYES: No icterus sclerae, no conjunctivitis. EARS, NOSE, MOUTH, THROAT, and FACE: No sore throat, lymphadenopathy, carotid bruits or deformity. RESPIRATORY: Slight shortness of breath no cough or wheezes.. CARDIOVASCULAR: Positive PND orthopnea palpitation no angina.. GASTROINTESTINAL: Positive abdominal pain with nausea vomiting diarrhea no constipation no acute gastrointestinal bleed no distention or masses.. GENITOURINARY: Decreased urine output she is on hemodialysis.. INTEGUMENT/BREAST: Negative for any muscular injury with mild osteoarthritis.. HEMATOLOGIC/LYMPHATIC: Chronic anemia and hematoma around the fistula graft.. MUSCULOSKELTAL: Negative for Myalgia or arthralgia. NEURLOGICAL: No LOC, Sz or syncope, blurred vision dizziness or abnormality.. BEHAVIORAL/PSYCH: Negative. ENDOCRINE: Negative. PHYSICAL EXAMINATION: General Appearance: Alert, cooperative, no distress, appears stated age. Neck HEENT: Supple, no lymphadenopathy, no thyroid enlargement, no carotid bruits. Lungs: Positive fine rhonchi in the bases with crackles mostly limited area on the right side no wheezes. Chest Wall: Decreased expansion with deep inspiration no tenderness and no deformity was found on exam, no costochondral pain or discomfort. Heart: Regular rate and rhythm, S1, S2 normal, no murmur, rub or gallop. Back: Symmetric, no curvature, ROM normal, no CVA tenderness. Abdomen: Soft with slight tenderness in the mid epigastric and right upper quadrant area no rebound or rigidity slight hepatomegaly not able to feel any splenomegaly at this point and very limited amount of ascites. Extremities: Trace edema, her fistula graft in the left side has slight hematoma on the side. Pulses: 2+ and symmetric. Skin: Skin color, texture, tugor normal, no rashes or lesions. Neurologic: Alert oriented x3 cranial nerves II through XII intact, no motor deficit, no abnormal balance or gait. ASSESSMENT AND PLAN: _Acute on subacute pancreatitis most likely from the effect of her gallbladder and gallstone admit patient to hospital, consult gastroenterology and general surgery repeat lipase liver function test next 24 hours. _Gallstone without any acute cholecystitis: With the possibility of possible common duct stone passing black the pancreatic duct causing subacute pancreatitis which with a drove all this in to happen and by the time testing done could not find any dilatation of the common duct. _Possible gallbladder dyskinesia: Will be going for HIDA scan there is possibility of some stone in the gallbladder, and at this stage with recurrent symptoms patient probably will need to go for cholecystectomy. _Abnormal liver function test: Not clear whether this is hepatically stasis I related to his secondary to infection we will watch liver function test again carefully with lab. _End-stage renal disease: On hemodialysis 3 times a week resume dialysis. Resume dialysis continue phosphorus stabilizing medication and vitamin D. _Hypertension: Blood pressure remains well-controlled on Coreg 25 mg twice a day should be on smaller dose of losartan as well. _Hypothyroidism: Continue levothyroxine 225 mcg daily on Saturday the rest of the week is on 50 mcg. _Type 2 diabetes: Continue Humalog 22 units AC meals still on Lantus 23 units twice daily as well, continue Accu-Chek with sliding scale coverage. _Chronic anemia: Iron deficiency from end-stage renal disease continue to watch hemoglobin and iron level continue Procrit. _GI prophylaxis: Remain on pantoprazole. CODE STATUS: Full code. Admit patient to the inpatient service more for more than 2 night stay. Decision making: Patient admitted to the hospital with acute symptoms most likely of gastritis versus cholecystitis and acute or subacute pancreatitis. Abnormal liver function test and elevated lipase was found as for her radiographic testing does not fit the criteria for acute pancreatitis or acute cholecystitis but the recurrent symptoms and having to have gallbladder dyskinesia and having to have the significant abnormal liver function test is in decision to conclude the need and possibility to have her gallbladder out at this time otherwise the recurrent event with recurrent pancreatitis and abdominal pain with further symptoms will continue to happen. Agree with the emergency department the consult general surgery and probably plan in the next day or 2 to have her gallbladder out. 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 6 years. Last Myocardial Infarction Date:: Unknown History of Any Multi-Drug Resistant Organisms: None Reported Past Surgical History: Section, Hysterectomy, Orthopedic Surgery Additional Past Surgical History / Comment(s): Had open thrombectomy left axillary graft on 12-21-21,BONE TUMOR REMOVED FROM LT FINGER AND REPLACED WITH BONE FROM ELBOW. DIALYSIS FISTULA rt arm-old, lasik rt eye surgery, right upper ext. left AV graft revision 03-31-20 Past Anesthesia/Blood Transfusion Reactions: Postoperative Nausea & Vomiting (PONV) Past Psychological History: No Psychological Hx Reported Smoking Status: Never smoker Past Alcohol Use History: None Reported Past Drug Use History: None Reported - Past Family History Mother Family Medical History: Cancer Brother(s) Family Medical History: Cancer Medications and Allergies Home Medications Medication Instructions Recorded Confirmed Type Aspirin 325 mg PO DAILY@1600 07/28/19 05/31/23 History Levothyroxine Sodium [Synthroid] 150 mcg PO MOTUWETHFR 03/25/20 05/31/23 History carvediloL 25 mg PO BID 08/16/21 05/31/23 History Levothyroxine Sodium [Synthroid] 225 mcg PO SUSA 12/20/21 05/31/23 History Insulin Glargine,Hum.rec.anlog 32 units SQ BID 07/21/22 05/31/23 History [Lantus Solostar Pen] Insulin Lispro [humaLOG Kwikpen] 22 unit SQ TID-W/MEALS 07/21/22 05/31/23 History Nephro-Nav 1 cap PO DAILY@1600 07/21/22 05/31/23 History Sevelamer [Renvela] 1,600 mg PO TID-W/MEALS 10/17/22 05/31/23 History Simvastatin [Zocor] 40 mg PO HS 10/17/22 05/31/23 History Midodrine [ProAmatine] 10 mg PO TID PRN 05/31/23 05/31/23 History Pantoprazole Sodium [Protonix] 20 mg PO DAILY 05/31/23 05/31/23 History traZODone HCL [Desyrel] 100 mg PO HS PRN 05/31/23 05/31/23 History Allergies Allergy/AdvReac Type Severity Reaction Status Date / Time No Known Allergies Allergy Verified 05/31/23 09:34 Physical Exam Vitals: Vital Signs Temp Pulse Pulse Resp BP BP Pulse Ox 05/31/23 08:00 99.3 F 72 16 97/47 93 L 05/31/23 06:28 105/46 05/31/23 04:40 99/47 05/31/23 04:10 107/45 05/31/23 03:30 100/45 05/31/23 03:26 98.2 F 71 20 94/45 94 L 05/31/23 01:09 110/48 05/31/23 01:03 100 F H 76 18 98/47 93 L 05/30/23 20:32 98.4 F 16 94 L 05/30/23 20:01 94 L 05/30/23 20:00 88 L 05/30/23 18:19 100.0 F H 89 12 109/32 94 L Intake and Output 05/30/23 05/31/23 05/31/23 22:59 06:59 14:59 Other: Weight 141 kg Results CBC & Chem 7: 05/30/23 20:24 05/31/23 18:15 Labs: Abnormal Lab Results - Last 24 Hours (Table) 05/30/23 05/30/23 05/30/23 Range/Units 20:24 20:24 20:24 RBC 2.30 L (3.80-5.40) m/uL Hgb 8.1 L (11.4-16.0) gm/dL Hct 23.6 L (34.0-46.0) % MCV 102.4 H (80.0-100.0) fL MCH 35.1 H (25.0-35.0) pg RDW 16.2 H (11.5-15.5) % Lymphocytes # (Manual) 0.28 L (1.0-4.8) k/uL Metamyelocytes # (Man) 0.08 H (0) k/uL APTT 18.0 L (22.0-30.0) sec Potassium 3.4 L (3.5-5.1) mmol/L BUN 39 H (7-17) mg/dL Creatinine 6.53 H (0.52-1.04) mg/dL Glucose 105 H (74-99) mg/dL Total Bilirubin 1.9 H (0.2-1.3) mg/dL AST 414 H (14-36) U/L ALT 154 H (4-34) U/L Alkaline Phosphatase 224 H (38-126) U/L Albumin 3.0 L (3.5-5.0) g/dL Lipase 315 H (23-300) U/L
[2023-06-01 00:56] LABS: Glucose,Whole Blood 197 mg/dL (70-110)
[2023-06-01] MEDS: LEVOTHYROXINE 75 MCG TAB PO SCH (06:18)
[2023-06-01] MEDS: PANTOPRAZOLE SODIUM 40 MG GRANULE PKT PO SCH (06:20)
[2023-06-01] MEDS ORDERED: HYDROmorphone 0.5 MG/0.5 ML SYRINGE IVP PRN (07:00)
[2023-06-01] MEDS ORDERED: METOCLOPRAMIDE 5 MG/ML 2 ML VIAL IVP PRN (07:00)
[2023-06-01 07:04] LABS: Glucose,Whole Blood 190 mg/dL (70-110)
[2023-06-01] MEDS: MIDODRINE 5 MG TAB PO PRN (08:03)
[2023-06-01 09:17] LABS: Anisocytosis Slight; HGB 8.4 gm/dL (11.4-16.0); MCH 33.9 pg (25.0-35.0); MCHC 32.4 g/dL (31.0-37.0); MCV 104.7 fL (80.0-100.0); Macrocytosis Moderate; Mean Platelet Volume 11.1; Platelet Count 143 k/uL (150-450); RBC 2.48 m/uL (3.80-5.40); RDW 16.5 % (11.5-15.5); WBC 14.9 k/uL (3.8-10.6)
[2023-06-01 09:29] LABS: ALT 160 U/L (4-34); AST 183 U/L (14-36); African American GFR (CKD) 9 (>60 ml/min/1.73 sqM); Alkaline Phosphatase 227 U/L (38-126); Anion Gap 12 mmol/L; Blood Urea Nitrogen 42 mg/dL (7-17); Calcium 8.3 mg/dL (8.4-10.2); Carbon Dioxide 26 mmol/L (22-30); Chloride 97 mmol/L (98-107); Glucose 194 mg/dL (74-99); Non-African American GFR(CKD) 8 (>60 ml/min/1.73 sqM); Potassium 4.8 mmol/L (3.5-5.1); Sodium 135 mmol/L (137-145); Total Bilirubin 2.9 mg/dL (0.2-1.3); Total Protein 6.5 g/dL (6.3-8.2)
[2023-06-01 10:16] LABS: % Iron Saturation 11.17 (12.00-45.00)
[2023-06-01 11:53] LABS: Glucose,Whole Blood 187 mg/dL (70-110)
--- NOTE | 2023-06-01 11:56 | P.PN ---
Subjective Progress Note Date: 06/01/23 Patient is seen in follow-up for ESRD. HD schedule is TTS and due today. No new complaints. Vital signs are stable. General: No acute distress. HEENT: Head exam is unremarkable. LUNGS: No audible rhonchi or wheezes. HEART: Rate and Rhythm are regular. ABDOMEN: Obese, nontender. EXTREMITITES: 1+ edema. Objective - Vital Signs Vital signs: Vital Signs Temp 97.8 F 06/01/23 08:00 Pulse 61 06/01/23 08:00 Resp 18 06/01/23 08:00 BP 108/49 06/01/23 08:00 Pulse Ox 92 L 06/01/23 08:00 FiO2 Intake & Output 05/31/23 06/01/23 06/01/23 18:59 06:59 18:59 Intake Total 400 10 Output Total 1400 10 Balance -1000 0 Weight 141 kg Intake: IV 10 Invasive Line 1 10 Hemodialysis 400 Output: Urine 10 Emesis 0 Hemodialysis 1400 Other: Voiding Method Toilet # Voids 0 # Bowel Movements 1 - Labs CBC & Chem 7: 06/01/23 07:32 06/01/23 07:32 Labs: Abnormal Lab Results - Last 24 Hours (Table) 05/31/23 05/31/23 06/01/23 Range/Units 17:21 20:24 00:54 WBC (3.8-10.6) k/uL RBC (3.80-5.40) m/uL Hgb (11.4-16.0) gm/dL Hct (34.0-46.0) % MCV (80.0-100.0) fL RDW (11.5-15.5) % Plt Count (150-450) k/uL Sodium (137-145) mmol/L Chloride (98-107) mmol/L BUN (7-17) mg/dL Creatinine (0.52-1.04) mg/dL Glucose (74-99) mg/dL POC Glucose (mg/dL) 129 H 208 H 197 H (70-110) mg/dL Calcium (8.4-10.2) mg/dL Total Bilirubin (0.2-1.3) mg/dL AST (14-36) U/L ALT (4-34) U/L Alkaline Phosphatase (38-126) U/L Albumin (3.5-5.0) g/dL 06/01/23 06/01/23 06/01/23 Range/Units 07:01 07:32 07:32 WBC 14.9 H (3.8-10.6) k/uL RBC 2.48 L (3.80-5.40) m/uL Hgb 8.4 L (11.4-16.0) gm/dL Hct 26.0 L (34.0-46.0) % MCV 104.7 H (80.0-100.0) fL RDW 16.5 H (11.5-15.5) % Plt Count 143 L (150-450) k/uL Sodium 135 L (137-145) mmol/L Chloride 97 L (98-107) mmol/L BUN 42 H (7-17) mg/dL Creatinine 5.25 H (0.52-1.04) mg/dL Glucose 194 H (74-99) mg/dL POC Glucose (mg/dL) 190 H (70-110) mg/dL Calcium 8.3 L (8.4-10.2) mg/dL Total Bilirubin 2.9 H (0.2-1.3) mg/dL AST 183 H (14-36) U/L ALT 160 H (4-34) U/L Alkaline Phosphatase 227 H (38-126) U/L Albumin 3.0 L (3.5-5.0) g/dL Assessment and Plan Plan: Assessment: 1. End-stage renal disease maintained on hemodialysis on Saturday schedule via AV graft. 2. Infiltrated AV graft. Vascular surgery consulted. 3. Nausea and vomiting. CT showed no acute process. Patient does have gallstones. Surgery and GI following. 4. Mild volume overload. 5. Hypotension maintained on midodrine. 6. Diabetes mellitus. 7. Chronic kidney disease mineral bone disease maintained on Renvela. 8. Anemia of chronic kidney disease. Plan: Hemodialysis yesterday. vascular surgery evaluated AVG functioned well with HD, no intervention. Plan for another treatment today per her outpatient schedule. Phosphorus at goal <5.5. Maintain midodrine. Hold for systolic blood pressure greater than 110. Planning for cholecystectomy Saturday with surgery.
[2023-06-01] MEDS: metroNIDAZOLE-NS PMX 500 MG in SALINE 1 100ML.BAG IVPB SCH (12:11)
--- NOTE | 2023-06-01 12:54 | P.PN ---
Subjective Progress Note Date: 06/01/23 Principal diagnosis: Cholecystitis chronic Patient is currently asymptomatic with no pain. She is tolerating clear liquids. She is interested in advancing diet. Objective - Vital Signs Vital signs: Vital Signs Temp 97.8 F 06/01/23 08:00 Pulse 58 L 06/01/23 12:00 Resp 18 06/01/23 12:00 BP 109/51 06/01/23 12:00 Pulse Ox 95 06/01/23 12:00 FiO2 Intake & Output 05/31/23 06/01/23 06/01/23 18:59 06:59 18:59 Intake Total 400 10 Output Total 1400 10 Balance -1000 0 Weight 141 kg Intake: IV 10 Invasive Line 1 10 Hemodialysis 400 Output: Urine 10 Emesis 0 Hemodialysis 1400 Other: Voiding Method Toilet # Voids 0 # Bowel Movements 1 - Constitutional General appearance: Present: morbidly obese - EENT Eyes: Absent: abnormal pupil, anicteric sclerae, disc margins sharp, edentulous, EOMI, fundus normal, photophobia, dentition normal, poor dentition, ptosis, scleral icterus, normal appearance ENT: Present: normal oropharynx. Absent: hard of hearing, hearing grossly normal, NA/AT, other, pharyngeal erythema, thrush, tonsillar exudates, tonsillar swelling - Gastrointestinal General gastrointestinal: Present: normal bowel sounds, tenderness (Mild tenderness right upper quadrant). Absent: absent bowel sounds, decreased bowel sounds, distended, hepatomegaly, hyperactive bowel sounds, organomegaly, rigid, scaphoid, soft, splenomegaly, umbilical hernia, ventral hernia - Integumentary Integumentary: Absent: calor, cellulitis, cyanotic, decreased turgor, flushed, jaundiced, normal, normal turgor, pale, rash, ulcer - Neurologic Neurologic: Present: CNII-XII intact - Musculoskeletal Musculoskeletal: Present: gait normal. Absent: generalized weakness, strength equal bilaterally, right sided weakness, left sided weakness - Labs CBC & Chem 7: 06/01/23 07:32 06/01/23 07:32 Labs: Abnormal Lab Results - Last 24 Hours (Table) 05/31/23 05/31/23 05/31/23 Range/Units 17:21 18:15 20:24 WBC (3.8-10.6) k/uL RBC (3.80-5.40) m/uL Hgb (11.4-16.0) gm/dL Hct (34.0-46.0) % MCV (80.0-100.0) fL RDW (11.5-15.5) % Plt Count (150-450) k/uL Sodium (137-145) mmol/L Chloride (98-107) mmol/L BUN (7-17) mg/dL Creatinine (0.52-1.04) mg/dL Glucose (74-99) mg/dL POC Glucose (mg/dL) 129 H 208 H (70-110) mg/dL Calcium (8.4-10.2) mg/dL Iron 23 L (50-170) UG/DL TIBC 206 L (228-460) UG/DL % Saturation 11.17 L (12.00-45.00) Transferrin 147.0 L (204.0-354.0) mg/dL Ferritin 2940.0 H (10.0-291.0) ng/mL Total Bilirubin (0.2-1.3) mg/dL AST (14-36) U/L ALT (4-34) U/L Alkaline Phosphatase (38-126) U/L Albumin (3.5-5.0) g/dL 06/01/23 06/01/23 06/01/23 Range/Units 00:54 07:01 07:32 WBC (3.8-10.6) k/uL RBC (3.80-5.40) m/uL Hgb (11.4-16.0) gm/dL Hct (34.0-46.0) % MCV (80.0-100.0) fL RDW (11.5-15.5) % Plt Count (150-450) k/uL Sodium 135 L (137-145) mmol/L Chloride 97 L (98-107) mmol/L BUN 42 H (7-17) mg/dL Creatinine 5.25 H (0.52-1.04) mg/dL Glucose 194 H (74-99) mg/dL POC Glucose (mg/dL) 197 H 190 H (70-110) mg/dL Calcium 8.3 L (8.4-10.2) mg/dL Iron (50-170) UG/DL TIBC (228-460) UG/DL % Saturation (12.00-45.00) Transferrin (204.0-354.0) mg/dL Ferritin (10.0-291.0) ng/mL Total Bilirubin 2.9 H (0.2-1.3) mg/dL AST 183 H (14-36) U/L ALT 160 H (4-34) U/L Alkaline Phosphatase 227 H (38-126) U/L Albumin 3.0 L (3.5-5.0) g/dL 06/01/23 06/01/23 Range/Units 07:32 11:51 WBC 14.9 H (3.8-10.6) k/uL RBC 2.48 L (3.80-5.40) m/uL Hgb 8.4 L (11.4-16.0) gm/dL Hct 26.0 L (34.0-46.0) % MCV 104.7 H (80.0-100.0) fL RDW 16.5 H (11.5-15.5) % Plt Count 143 L (150-450) k/uL Sodium (137-145) mmol/L Chloride (98-107) mmol/L BUN (7-17) mg/dL Creatinine (0.52-1.04) mg/dL Glucose (74-99) mg/dL POC Glucose (mg/dL) 187 H (70-110) mg/dL Calcium (8.4-10.2) mg/dL Iron (50-170) UG/DL TIBC (228-460) UG/DL % Saturation (12.00-45.00) Transferrin (204.0-354.0) mg/dL Ferritin (10.0-291.0) ng/mL Total Bilirubin (0.2-1.3) mg/dL AST (14-36) U/L ALT (4-34) U/L Alkaline Phosphatase (38-126) U/L Albumin (3.5-5.0) g/dL Assessment and Plan Assessment: Chronic cholecystitis Plan: Scheduled for OR on Saturday
--- NOTE | 2023-06-01 13:22 | P.PN ---
Subjective Progress Note Date: 06/01/23 * 68-year-old female= who was hospitalized recently at [facility] for abscess and infected armpit area with slight recurrent abdominal discomfort with gallbladder dyskinesia at the time. * Patient has end-stage renal disease on hemodialysis 3 times a week also has known to have type 2 diabetes, obstructive sleep apnea, hypertension, hyperlipidemia, hypothyroidism, she brought to the emergency department because of intractable nausea vomiting and diarrhea could not complete dialysis with worsening fever and chills with abdominal distention without any significant chest pain no bloody stool. Also had infiltrate her fistula which the reason why here hemodialysis was stopped early. With her current symptoms and the significant abnormal liver function test from her last hospitalization which patient was study in detail and found to have biliary hypokinesia via HIDA scan done last month. * Patient liver function test this time came back with total bilirubin of 1.9 with AST of 414 and ALT 154 with alkaline phosphatase 224 also lipase of 315 with amylase of 49 which make the diagnosis of subacute pancreatitis as well. * Also she continued to have significant anemia with hemoglobin of 8.1 platelet count 1 65,000 patient creatinine was 6.5 with BUN of 39. * Patient was hospitalized and consult at this point gastroenterology for her recurrent symptoms with nausea and vomiting to conclude the possibility of gallbladder and gallstone with abnormal liver function test. And also to help to make decision whether her gallbladder should be removed or not. Cardiology consultation for cardiology clearance which patient has no history of cardiac disease no change on her EKG at this point or any change in cardiac enzymes. Nephrology consultation was requested to continue hemodialysis. Also request consult of vascular for her fistula. * 06/01/23 Dr Alford Assumed care. Patient seen and evaluated bedside, at bedside, questioning whether patient will need cholecystectomy. Patient and explained care plan, general surgery following bilirubin elevated liver profile trending down. Patient started on IV antibiotic including Rocephin and Flagyl due to concern for elevated leukocytosis. Patient received hemodialysis PHYSICAL EXAMINATION: GENERAL: The patient is alert and oriented x3, obese, ill appearance HEENT: Pupils are round and equally reacting to light. EOMI. No scleral icterus CARDIOVASCULAR: S1 and S2 present. No murmurs, rubs, or gallops. PULMONARY: Chest is clear to auscultation, no wheezing or crackles. ABDOMEN: Soft, nontender, nondistended, normoactive bowel sounds. Alvarez sign negative MUSCULOSKELETAL: No joint swelling or deformity. EXTREMITIES: No cyanosis, clubbing, or pedal edema. NEUROLOGICAL: Gross neurological examination did not reveal any focal deficits. SKIN: No rashes. Assessment and plan Cholelithiasis with transaminitis symptomatic nausea vomiting End-stage renal disease on hemodialysis Infiltrated hemodialysis graft Morbid obesity Diabetes mellitus type 2 Hypertension Obstructive sleep apnea Consultation obtained from general surgery, vascular surgery, cardiology In regards to cholelithiasis, tentative plan for cholecystectomy during this hospitalization. Patient started on Rocephin and Flagyl day 1 In regards to end-stage renal disease continue hemodialysis per nephrology discretion Regards to diabetes mellitus continue Accu-Cheks ACHS continue patient on correctional insulin, continue Lantus monitor blood glucose Regards to fluid overload, fluid management per dialysis Patient needing preoperative cardiac clearance cardiology to schedule Lexiscan prior to surgery, echocardiogram ordered Objective - Vital Signs Vital signs: Vital Signs Temp 97.8 F 06/01/23 08:00 Pulse 61 06/01/23 08:00 Resp 18 06/01/23 08:00 BP 108/49 06/01/23 08:00 Pulse Ox 92 L 06/01/23 08:00 FiO2 Intake & Output 05/31/23 06/01/23 06/01/23 18:59 06:59 18:59 Intake Total 400 10 Output Total 1400 10 Balance -1000 0 Weight 141 kg Intake: IV 10 Invasive Line 1 10 Hemodialysis 400 Output: Urine 10 Emesis 0 Hemodialysis 1400 Other: Voiding Method Toilet # Voids 0 # Bowel Movements 1 - Labs CBC & Chem 7: 06/01/23 07:32 06/01/23 07:32 Labs: Abnormal Lab Results - Last 24 Hours (Table) 05/31/23 05/31/23 06/01/23 Range/Units 17:21 20:24 00:54 WBC (3.8-10.6) k/uL RBC (3.80-5.40) m/uL Hgb (11.4-16.0) gm/dL Hct (34.0-46.0) % MCV (80.0-100.0) fL RDW (11.5-15.5) % Plt Count (150-450) k/uL Sodium (137-145) mmol/L Chloride (98-107) mmol/L BUN (7-17) mg/dL Creatinine (0.52-1.04) mg/dL Glucose (74-99) mg/dL POC Glucose (mg/dL) 129 H 208 H 197 H (70-110) mg/dL Calcium (8.4-10.2) mg/dL Total Bilirubin (0.2-1.3) mg/dL AST (14-36) U/L ALT (4-34) U/L Alkaline Phosphatase (38-126) U/L Albumin (3.5-5.0) g/dL 06/01/23 06/01/23 06/01/23 Range/Units 07:01 07:32 07:32 WBC 14.9 H (3.8-10.6) k/uL RBC 2.48 L (3.80-5.40) m/uL Hgb 8.4 L (11.4-16.0) gm/dL Hct 26.0 L (34.0-46.0) % MCV 104.7 H (80.0-100.0) fL RDW 16.5 H (11.5-15.5) % Plt Count 143 L (150-450) k/uL Sodium 135 L (137-145) mmol/L Chloride 97 L (98-107) mmol/L BUN 42 H (7-17) mg/dL Creatinine 5.25 H (0.52-1.04) mg/dL Glucose 194 H (74-99) mg/dL POC Glucose (mg/dL) 190 H (70-110) mg/dL Calcium 8.3 L (8.4-10.2) mg/dL Total Bilirubin 2.9 H (0.2-1.3) mg/dL AST 183 H (14-36) U/L ALT 160 H (4-34) U/L Alkaline Phosphatase 227 H (38-126) U/L Albumin 3.0 L (3.5-5.0) g/dL
--- NOTE | 2023-06-01 13:46 | P.PN ---
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 She has a past medical history of end-stage renal disease on hemodialysis, diabetes mellitus, hypertension, hyperlipidemia, hypothyroidism, obstructive sleep apnea on CPAP. We have been asked to evaluate patient for CHF. Patient states that she had nausea vomiting diarrhea could not complete her dialysis treatment she also had chills. Abdominal distention. And dizziness. She denies having any chest pain. She denies having any blood in her stools. She states she did have some shortness of breath because she did not finish her dialysis treatment. She states she is a non-smoker. No lower extremity edema. Regarding gallbladder, patient states that she has been evaluated for gallbladder surgery but this has been put on hold. EKG sinus rhythm with no acute ST-T wave changes. Chest x-ray: Findings suggestive of CHF exacerbation. WBC 4, hemoglobin 8.1, platelet count 165. INR 1. Sodium 141, potassium 3.4, BUN 39 creatinine 6.5. Magnesium 1.9. Total bilirubin 1.9, AST 414, ALT 134, alkaline phosphatase 224. Troponin negative x 1. proBNP 3270. Influenza A, influenza B, RSV, COVID-19 not detected. Home cardiac medications: Aspirin 325 mg daily, Coreg 25 mg twice daily, simvastatin 40 mg at bedtime, patient is also on midodrine as needed and levothyroxine. 06/01/2023 The patient was seen and examined resting comfortably in bed. She is overall feeling a bit better. Her abdomen is feeling better. She denies any complaints of chest discomfort at this time. Denies any shortness of breath at this time. She was seen and examined by surgical team and recommended cholecystectomy. She is scheduled for a Lexiscan MPI to be done on Saturday. Echocardiogram is pending. Objective - Vital Signs Vital signs: Vital Signs Temp 97.8 F 06/01/23 08:00 Pulse 58 L 06/01/23 12:00 Resp 18 06/01/23 12:00 BP 109/51 06/01/23 12:00 Pulse Ox 95 06/01/23 12:00 FiO2 Intake & Output 05/31/23 06/01/23 06/01/23 18:59 06:59 18:59 Intake Total 400 10 Output Total 1400 10 Balance -1000 0 Weight 141 kg Intake: IV 10 Invasive Line 1 10 Hemodialysis 400 Output: Urine 10 Emesis 0 Hemodialysis 1400 Other: Voiding Method Toilet # Voids 0 1 # Bowel Movements 1 - Exam VS: reviewed HEENT: Head is atraumatic, normocephalic. Pupils equal, round. Sclerae is anicteric. NECK: Supple. No JVD. LUNGS: Clear to auscultation. No wheezes or rhonchi. No intercostal retractions. HEART: Regular rate and rhythm. No murmur. ABDOMEN: Soft No tenderness. EXTREMITIES: No pedal edema. No calf tenderness. AV fistula right arm. NEUROLOGICAL: Patient is awake, alert and oriented x3. - Labs CBC & Chem 7: 06/01/23 07:32 06/01/23 07:32 Labs: Abnormal Lab Results - Last 24 Hours (Table) 05/31/23 05/31/23 05/31/23 Range/Units 17:21 18:15 20:24 WBC (3.8-10.6) k/uL RBC (3.80-5.40) m/uL Hgb (11.4-16.0) gm/dL Hct (34.0-46.0) % MCV (80.0-100.0) fL RDW (11.5-15.5) % Plt Count (150-450) k/uL Sodium (137-145) mmol/L Chloride (98-107) mmol/L BUN (7-17) mg/dL Creatinine (0.52-1.04) mg/dL Glucose (74-99) mg/dL POC Glucose (mg/dL) 129 H 208 H (70-110) mg/dL Calcium (8.4-10.2) mg/dL Iron 23 L (50-170) UG/DL TIBC 206 L (228-460) UG/DL % Saturation 11.17 L (12.00-45.00) Transferrin 147.0 L (204.0-354.0) mg/dL Ferritin 2940.0 H (10.0-291.0) ng/mL Total Bilirubin (0.2-1.3) mg/dL AST (14-36) U/L ALT (4-34) U/L Alkaline Phosphatase (38-126) U/L Albumin (3.5-5.0) g/dL 06/01/23 06/01/23 06/01/23 Range/Units 00:54 07:01 07:32 WBC (3.8-10.6) k/uL RBC (3.80-5.40) m/uL Hgb (11.4-16.0) gm/dL Hct (34.0-46.0) % MCV (80.0-100.0) fL RDW (11.5-15.5) % Plt Count (150-450) k/uL Sodium 135 L (137-145) mmol/L Chloride 97 L (98-107) mmol/L BUN 42 H (7-17) mg/dL Creatinine 5.25 H (0.52-1.04) mg/dL Glucose 194 H (74-99) mg/dL POC Glucose (mg/dL) 197 H 190 H (70-110) mg/dL Calcium 8.3 L (8.4-10.2) mg/dL Iron (50-170) UG/DL TIBC (228-460) UG/DL % Saturation (12.00-45.00) Transferrin (204.0-354.0) mg/dL Ferritin (10.0-291.0) ng/mL Total Bilirubin 2.9 H (0.2-1.3) mg/dL AST 183 H (14-36) U/L ALT 160 H (4-34) U/L Alkaline Phosphatase 227 H (38-126) U/L Albumin 3.0 L (3.5-5.0) g/dL 06/01/23 06/01/23 Range/Units 07:32 11:51 WBC 14.9 H (3.8-10.6) k/uL RBC 2.48 L (3.80-5.40) m/uL Hgb 8.4 L (11.4-16.0) gm/dL Hct 26.0 L (34.0-46.0) % MCV 104.7 H (80.0-100.0) fL RDW 16.5 H (11.5-15.5) % Plt Count 143 L (150-450) k/uL Sodium (137-145) mmol/L Chloride (98-107) mmol/L BUN (7-17) mg/dL Creatinine (0.52-1.04) mg/dL Glucose (74-99) mg/dL POC Glucose (mg/dL) 187 H (70-110) mg/dL Calcium (8.4-10.2) mg/dL Iron (50-170) UG/DL TIBC (228-460) UG/DL % Saturation (12.00-45.00) Transferrin (204.0-354.0) mg/dL Ferritin (10.0-291.0) ng/mL Total Bilirubin (0.2-1.3) mg/dL AST (14-36) U/L ALT (4-34) U/L Alkaline Phosphatase (38-126) U/L Albumin (3.5-5.0) g/dL Assessment and Plan Assessment: End-stage renal disease on hemodialysis Mild fluid overload from and completed dialysis History of hypertension Diabetes mellitus type 2 Hyperlipidemia Hypothyroidism Obstructive sleep apnea Plan: From cardiology's perspective we recommendation is to delay surgery until risk stratification can be completed with Lexiscan MPI which is scheduled to be done on Saturday. Will continue to follow the patient and provide further recommendations accordingly. LINE UP EXAMINER note has been reviewed, I agree with a documented findings and plan of care. Patient was seen and examined.
[2023-06-01 16:34] LABS: Glucose,Whole Blood 95 mg/dL (70-110)
[2023-06-01 20:21] LABS: Glucose,Whole Blood 129 mg/dL (70-110)
[2023-06-02 07:10] LABS: Glucose,Whole Blood 82 mg/dL (70-110)
[2023-06-02 07:59] LABS: Anisocytosis Slight; HCT 27.9 % (34.0-46.0); Hypochromasia Slight; MCH 33.9 pg (25.0-35.0); MCHC 32.2 g/dL (31.0-37.0); MCV 105.3 fL (80.0-100.0); Macrocytosis Moderate; Mean Platelet Volume 11.1; Platelet Count 152 k/uL (150-450); RBC 2.64 m/uL (3.80-5.40); RDW 16.4 % (11.5-15.5); WBC 10.2 k/uL (3.8-10.6)
[2023-06-02 08:19] LABS: ALT 150 U/L (4-34); AST 179 U/L (14-36); African American GFR (CKD) 11 (>60 ml/min/1.73 sqM); Albumin 3.1 g/dL (3.5-5.0); Alkaline Phosphatase 327 U/L (38-126); Anion Gap 10 mmol/L; Blood Urea Nitrogen 37 mg/dL (7-17); Calcium 8.5 mg/dL (8.4-10.2); Carbon Dioxide 26 mmol/L (22-30); Chloride 99 mmol/L (98-107); Glucose 77 mg/dL (74-99); Non-African American GFR(CKD) 10 (>60 ml/min/1.73 sqM); Sodium 135 mmol/L (137-145); Total Bilirubin 2.5 mg/dL (0.2-1.3); Total Protein 6.7 g/dL (6.3-8.2)
--- NOTE | 2023-06-02 10:24 | P.PN ---
Subjective Progress Note Date: 06/02/23 Patient feels slightly better today. Her nausea has improved. Her pain is improved. Objective - Vital Signs Vital signs: Vital Signs Temp 97.6 F 06/02/23 08:00 Pulse 55 L 06/02/23 08:00 Resp 18 06/02/23 08:00 BP 99/50 06/02/23 08:00 Pulse Ox 94 L 06/02/23 08:47 FiO2 Intake & Output 06/01/23 06/02/23 06/02/23 18:59 06:59 18:59 Other: Voiding Method Toilet Toilet # Voids 0 0 # Bowel Movements 0 - Gastrointestinal General gastrointestinal: Present: soft - Labs CBC & Chem 7: 06/02/23 06:49 06/02/23 06:49 Labs: Abnormal Lab Results - Last 24 Hours (Table) 05/31/23 06/01/23 06/01/23 Range/Units 18:15 11:51 20:17 RBC (3.80-5.40) m/uL Hgb (11.4-16.0) gm/dL Hct (34.0-46.0) % MCV (80.0-100.0) fL RDW (11.5-15.5) % Sodium (137-145) mmol/L BUN (7-17) mg/dL Creatinine (0.52-1.04) mg/dL POC Glucose (mg/dL) 187 H 129 H (70-110) mg/dL Ferritin 2940.0 H (10.0-291.0) ng/mL Total Bilirubin (0.2-1.3) mg/dL AST (14-36) U/L ALT (4-34) U/L Alkaline Phosphatase (38-126) U/L Albumin (3.5-5.0) g/dL 06/02/23 06/02/23 Range/Units 06:49 06:49 RBC 2.64 L (3.80-5.40) m/uL Hgb 9.0 L (11.4-16.0) gm/dL Hct 27.9 L (34.0-46.0) % MCV 105.3 H (80.0-100.0) fL RDW 16.4 H (11.5-15.5) % Sodium 135 L (137-145) mmol/L BUN 37 H (7-17) mg/dL Creatinine 4.26 H (0.52-1.04) mg/dL POC Glucose (mg/dL) (70-110) mg/dL Ferritin (10.0-291.0) ng/mL Total Bilirubin 2.5 H (0.2-1.3) mg/dL AST 179 H (14-36) U/L ALT 150 H (4-34) U/L Alkaline Phosphatase 327 H (38-126) U/L Albumin 3.1 L (3.5-5.0) g/dL Assessment and Plan Assessment: Chronic cholecystitis. Patient scheduled for lap ric in the a.m.
--- NOTE | 2023-06-02 11:21 | P.PN ---
Subjective Progress Note Date: 06/02/23 Patient is seen in follow-up for ESRD. HD schedule is TTS and had yesterday but unable to take off as much fluid as she wanted due to low BP. No new complaints. Vital signs are stable. General: No acute distress. HEENT: Head exam is unremarkable. LUNGS: No audible rhonchi or wheezes. HEART: Rate and Rhythm are regular. ABDOMEN: Obese, nontender. EXTREMITITES: 1+ edema. Objective - Vital Signs Vital signs: Vital Signs Temp 97.6 F 06/02/23 08:00 Pulse 55 L 06/02/23 08:00 Resp 18 06/02/23 08:00 BP 99/50 06/02/23 08:00 Pulse Ox 94 L 06/02/23 08:47 FiO2 Intake & Output 06/01/23 06/02/23 06/02/23 18:59 06:59 18:59 Other: Voiding Method Toilet Toilet # Voids 0 0 # Bowel Movements 0 - Labs CBC & Chem 7: 06/02/23 06:49 06/02/23 06:49 Labs: Abnormal Lab Results - Last 24 Hours (Table) 05/31/23 06/01/23 06/01/23 Range/Units 18:15 11:51 20:17 RBC (3.80-5.40) m/uL Hgb (11.4-16.0) gm/dL Hct (34.0-46.0) % MCV (80.0-100.0) fL RDW (11.5-15.5) % Sodium (137-145) mmol/L BUN (7-17) mg/dL Creatinine (0.52-1.04) mg/dL POC Glucose (mg/dL) 187 H 129 H (70-110) mg/dL Ferritin 2940.0 H (10.0-291.0) ng/mL Total Bilirubin (0.2-1.3) mg/dL AST (14-36) U/L ALT (4-34) U/L Alkaline Phosphatase (38-126) U/L Albumin (3.5-5.0) g/dL 06/02/23 06/02/23 Range/Units 06:49 06:49 RBC 2.64 L (3.80-5.40) m/uL Hgb 9.0 L (11.4-16.0) gm/dL Hct 27.9 L (34.0-46.0) % MCV 105.3 H (80.0-100.0) fL RDW 16.4 H (11.5-15.5) % Sodium 135 L (137-145) mmol/L BUN 37 H (7-17) mg/dL Creatinine 4.26 H (0.52-1.04) mg/dL POC Glucose (mg/dL) (70-110) mg/dL Ferritin (10.0-291.0) ng/mL Total Bilirubin 2.5 H (0.2-1.3) mg/dL AST 179 H (14-36) U/L ALT 150 H (4-34) U/L Alkaline Phosphatase 327 H (38-126) U/L Albumin 3.1 L (3.5-5.0) g/dL Assessment and Plan Plan: Assessment: 1. End-stage renal disease maintained on hemodialysis on Saturday schedule via AV graft. 2. Infiltrated AV graft. Vascular surgery consulted. 3. Nausea and vomiting. CT showed no acute process. Patient does have gallstones. Surgery and GI following. 4. Mild volume overload. 5. Hypotension maintained on midodrine. 6. Diabetes mellitus. 7. Chronic kidney disease mineral bone disease maintained on Renvela. 8. Anemia of chronic kidney disease. Plan: Hemodialysis yesterday. vascular surgery evaluated AVG functioned well with HD, no intervention. Next HD planned Saturday. Phosphorus at goal <5.5. Maintain midodrine. Hold for systolic blood pressure greater than 110. Planning for stress test tomorrow, cholecystectomy tentatively Saturday with surgery if cleared by cardiology.
[2023-06-02 11:49] LABS: Glucose,Whole Blood 162 mg/dL (70-110)
--- NOTE | 2023-06-02 12:03 | P.PN ---
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 She has a past medical history of end-stage renal disease on hemodialysis, diabetes mellitus, hypertension, hyperlipidemia, hypothyroidism, obstructive sleep apnea on CPAP. We have been asked to evaluate patient for CHF. Patient states that she had nausea vomiting diarrhea could not complete her dialysis treatment she also had chills. Abdominal distention. And dizziness. She denies having any chest pain. She denies having any blood in her stools. She states she did have some shortness of breath because she did not finish her dialysis treatment. She states she is a non-smoker. No lower extremity edema. Regarding gallbladder, patient states that she has been evaluated for gallbladder surgery but this has been put on hold. EKG sinus rhythm with no acute ST-T wave changes. Chest x-ray: Findings suggestive of CHF exacerbation. WBC 4, hemoglobin 8.1, platelet count 165. INR 1. Sodium 141, potassium 3.4, BUN 39 creatinine 6.5. Magnesium 1.9. Total bilirubin 1.9, AST 414, ALT 134, alkaline phosphatase 224. Troponin negative x 1. proBNP 3270. Influenza A, influenza B, RSV, COVID-19 not detected. Home cardiac medications: Aspirin 325 mg daily, Coreg 25 mg twice daily, simvastatin 40 mg at bedtime, patient is also on midodrine as needed and levothyroxine. 06/01/2023 The patient was seen and examined resting comfortably in bed. She is overall feeling a bit better. Her abdomen is feeling better. She denies any complaints of chest discomfort at this time. Denies any shortness of breath at this time. She was seen and examined by surgical team and recommended cholecystectomy. She is scheduled for a Lexiscan MPI to be done on Saturday. Echocardiogram is pending. 06/02/2023 The patient was seen and examined resting comfortably bed. She feels her breathing is stable. She has had no further abdominal pain. She has had no nausea or vomiting. She denies any complaints of chest discomfort. She is scheduled for a Lexiscan MPI to be done tomorrow. Echocardiogram remains pendin g. Objective - Vital Signs Vital signs: Vital Signs Temp 97.6 F 06/02/23 08:00 Pulse 55 L 06/02/23 08:00 Resp 18 06/02/23 08:00 BP 99/50 06/02/23 08:00 Pulse Ox 94 L 06/02/23 08:47 FiO2 Intake & Output 06/01/23 06/02/23 06/02/23 18:59 06:59 18:59 Other: Voiding Method Toilet Toilet # Voids 0 0 # Bowel Movements 0 - Exam VS: reviewed HEENT: Head is atraumatic, normocephalic. Pupils equal, round. Sclerae is anicteric. NECK: Supple. No JVD. LUNGS: Clear to auscultation. No wheezes or rhonchi. No intercostal retractions. HEART: Regular rate and rhythm. No murmur. ABDOMEN: Soft No tenderness. EXTREMITIES: No pedal edema. No calf tenderness. AV fistula right arm. NEUROLOGICAL: Patient is awake, alert and oriented x3. - Labs CBC & Chem 7: 06/02/23 06:49 06/02/23 06:49 Labs: Abnormal Lab Results - Last 24 Hours (Table) 06/01/23 06/02/23 06/02/23 Range/Units 20:17 06:49 06:49 RBC 2.64 L (3.80-5.40) m/uL Hgb 9.0 L (11.4-16.0) gm/dL Hct 27.9 L (34.0-46.0) % MCV 105.3 H (80.0-100.0) fL RDW 16.4 H (11.5-15.5) % Sodium 135 L (137-145) mmol/L BUN 37 H (7-17) mg/dL Creatinine 4.26 H (0.52-1.04) mg/dL POC Glucose (mg/dL) 129 H (70-110) mg/dL Total Bilirubin 2.5 H (0.2-1.3) mg/dL AST 179 H (14-36) U/L ALT 150 H (4-34) U/L Alkaline Phosphatase 327 H (38-126) U/L Albumin 3.1 L (3.5-5.0) g/dL 06/02/23 Range/Units 11:47 RBC (3.80-5.40) m/uL Hgb (11.4-16.0) gm/dL Hct (34.0-46.0) % MCV (80.0-100.0) fL RDW (11.5-15.5) % Sodium (137-145) mmol/L BUN (7-17) mg/dL Creatinine (0.52-1.04) mg/dL POC Glucose (mg/dL) 162 H (70-110) mg/dL Total Bilirubin (0.2-1.3) mg/dL AST (14-36) U/L ALT (4-34) U/L Alkaline Phosphatase (38-126) U/L Albumin (3.5-5.0) g/dL Assessment and Plan Assessment: End-stage renal disease on hemodialysis Mild fluid overload from and completed dialysis History of hypertension Diabetes mellitus type 2 Hyperlipidemia Hypothyroidism Obstructive sleep apnea Plan: From cardiology's perspective our doctor he is like recommendation is to delay surgery until risk stratification can be completed with Lexiscan MPI which is scheduled to be done on Saturday. Will continue to follow the patient and provide further recommendations accordingly. SPEED OPERATOR note has been reviewed, I agree with a documented findings and plan of care. Patient was seen and examined.
--- NOTE | 2023-06-02 12:22 | P.PN ---
Subjective Progress Note Date: 06/02/23 * 68-year-old female= who was hospitalized recently at [facility] for abscess and infected armpit area with slight recurrent abdominal discomfort with gallbladder dyskinesia at the time. * Patient has end-stage renal disease on hemodialysis 3 times a week also has known to have type 2 diabetes, obstructive sleep apnea, hypertension, hyperlipidemia, hypothyroidism, she brought to the emergency department because of intractable nausea vomiting and diarrhea could not complete dialysis with worsening fever and chills with abdominal distention without any significant chest pain no bloody stool. Also had infiltrate her fistula which the reason why here hemodialysis was stopped early. With her current symptoms and the significant abnormal liver function test from her last hospitalization which patient was study in detail and found to have biliary hypokinesia via HIDA scan done last month. * Patient liver function test this time came back with total bilirubin of 1.9 with AST of 414 and ALT 154 with alkaline phosphatase 224 also lipase of 315 with amylase of 49 which make the diagnosis of subacute pancreatitis as well. * Also she continued to have significant anemia with hemoglobin of 8.1 platelet count 1 65,000 patient creatinine was 6.5 with BUN of 39. * Patient was hospitalized and consult at this point gastroenterology for her recurrent symptoms with nausea and vomiting to conclude the possibility of gallbladder and gallstone with abnormal liver function test. And also to help to make decision whether her gallbladder should be removed or not. Cardiology consultation for cardiology clearance which patient has no history of cardiac disease no change on her EKG at this point or any change in cardiac enzymes. Nephrology consultation was requested to continue hemodialysis. Also request consult of vascular for her fistula. * 06/01/23 Dr Alford Assumed care. Patient seen and evaluated bedside, at bedside, questioning whether patient will need cholecystectomy. Patient and explained care plan, general surgery following bilirubin elevated liver profile trending down. Patient started on IV antibiotic including Rocephin and Flagyl due to concern for elevated leukocytosis. Patient received hemodialysis * 06/02/23: Patient seen and evaluated bedside, patient denies nausea vomiting, continue patient on clear liquid diet, stress test ordered for tomorrow echocardiogram ordered. Cardiology and general surgery following. All questions answered at bedside patient has no acute complaints. Blood glucose 162 bilirubin 2.5 AST 179 ALT 150. PHYSICAL EXAMINATION: GENERAL: The patient is alert and oriented x3, obese, ill appearance HEENT: Pupils are round and equally reacting to light. EOMI. No scleral icterus CARDIOVASCULAR: S1 and S2 present. No murmurs, rubs, or gallops. PULMONARY: Chest is clear to auscultation, no wheezing or crackles. ABDOMEN: Soft, nontender, nondistended, normoactive bowel sounds. Alvarez sign negative MUSCULOSKELETAL: No joint swelling or deformity. EXTREMITIES: No cyanosis, clubbing, or pedal edema. NEUROLOGICAL: Gross neurological examination did not reveal any focal deficits. SKIN: No rashes. Assessment and plan Cholelithiasis with transaminitis symptomatic nausea vomiting End-stage renal disease on hemodialysis Infiltrated hemodialysis graft Morbid obesity Diabetes mellitus type 2 Hypertension Obstructive sleep apnea Consultation obtained from general surgery, vascular surgery, cardiology In regards to cholelithiasis, tentative plan for cholecystectomy during this hospitalization. Patient started on Rocephin and Flagyl day 2 In regards to end-stage renal disease continue hemodialysis per nephrology discretion Regards to diabetes mellitus continue Accu-Cheks ACHS continue patient on correctional insulin, continue Lantus monitor blood glucose Regards to fluid overload, fluid management per dialysis Patient needing preoperative cardiac clearance cardiology to schedule Lexiscan prior to surgery, echocardiogram ordered Objective - Vital Signs Vital signs: Vital Signs Temp 97.6 F 06/02/23 08:00 Pulse 55 L 06/02/23 08:00 Resp 18 06/02/23 08:00 BP 99/50 06/02/23 08:00 Pulse Ox 94 L 06/02/23 08:47 FiO2 Intake & Output 06/01/23 06/02/23 06/02/23 18:59 06:59 18:59 Other: Voiding Method Toilet Toilet # Voids 0 0 # Bowel Movements 0 - Labs CBC & Chem 7: 06/02/23 06:49 06/02/23 06:49 Labs: Abnormal Lab Results - Last 24 Hours (Table) 06/01/23 06/02/23 06/02/23 Range/Units 20:17 06:49 06:49 RBC 2.64 L (3.80-5.40) m/uL Hgb 9.0 L (11.4-16.0) gm/dL Hct 27.9 L (34.0-46.0) % MCV 105.3 H (80.0-100.0) fL RDW 16.4 H (11.5-15.5) % Sodium 135 L (137-145) mmol/L BUN 37 H (7-17) mg/dL Creatinine 4.26 H (0.52-1.04) mg/dL POC Glucose (mg/dL) 129 H (70-110) mg/dL Total Bilirubin 2.5 H (0.2-1.3) mg/dL AST 179 H (14-36) U/L ALT 150 H (4-34) U/L Alkaline Phosphatase 327 H (38-126) U/L Albumin 3.1 L (3.5-5.0) g/dL 06/02/23 Range/Units 11:47 RBC (3.80-5.40) m/uL Hgb (11.4-16.0) gm/dL Hct (34.0-46.0) % MCV (80.0-100.0) fL RDW (11.5-15.5) % Sodium (137-145) mmol/L BUN (7-17) mg/dL Creatinine (0.52-1.04) mg/dL POC Glucose (mg/dL) 162 H (70-110) mg/dL Total Bilirubin (0.2-1.3) mg/dL AST (14-36) U/L ALT (4-34) U/L Alkaline Phosphatase (38-126) U/L Albumin (3.5-5.0) g/dL
[2023-06-02 16:35] LABS: Glucose,Whole Blood 208 mg/dL (70-110)
[2023-06-02 19:51] LABS: Glucose,Whole Blood 175 mg/dL (70-110)
[2023-06-03] MEDS ORDERED: REGADENOSON 0.4 MG/5 ML SYRINGE IV PRN (06:00)
[2023-06-03] MEDS ORDERED: AMINOPHYLLINE 500 MG/20 ML VIAL IV PRN (06:00)
[2023-06-03] MEDS ORDERED: CAFFEINE CITRATE 60 MG/3 ML VIAL IV PRN (06:00)
[2023-06-03 08:03] LABS: Anisocytosis Slight; HCT 26.6 % (34.0-46.0); HGB 8.7 gm/dL (11.4-16.0); MCH 34.1 pg (25.0-35.0); MCHC 32.9 g/dL (31.0-37.0); MCV 103.7 fL (80.0-100.0); Macrocytosis Moderate; Mean Platelet Volume 11.6; Platelet Count 127 k/uL (150-450); RBC 2.56 m/uL (3.80-5.40); RDW 16.4 % (11.5-15.5); WBC 6.1 k/uL (3.8-10.6)
[2023-06-03 08:18] LABS: ALT 139 U/L (4-34); AST 156 U/L (14-36); African American GFR (CKD) 8 (>60 ml/min/1.73 sqM); Albumin 2.7 g/dL (3.5-5.0); Alkaline Phosphatase 445 U/L (38-126); Anion Gap 10 mmol/L; Blood Urea Nitrogen 50 mg/dL (7-17); Calcium 8.3 mg/dL (8.4-10.2); Carbon Dioxide 26 mmol/L (22-30); Chloride 98 mmol/L (98-107); Glucose 79 mg/dL (74-99); Non-African American GFR(CKD) 7 (>60 ml/min/1.73 sqM); Potassium 4.2 mmol/L (3.5-5.1); Sodium 134 mmol/L (137-145); Total Bilirubin 2.8 mg/dL (0.2-1.3)
--- NOTE | 2023-06-03 10:32 | P.PN ---
Subjective HISTORY OF PRESENT ILLNESS: This is a 68-year-old female with no previous public health representative, does not have cardiac history. She has a past medical history of end-stage renal disease on hemodialysis, diabetes mellitus, hypertension, hyperlipidemia, hypothyroidism, obstructive sleep apnea on CPAP. We have been asked to evaluate patient for CHF. Patient states that she had nausea vomiting diarrhea could not complete her dialysis treatment she also had chills. Abdominal distention. And dizziness. She denies having any chest pain. She denies having any blood in her stools. She states she did have some shortness of breath because she did not finish her dialysis treatment. She states she is a non-smoker. No lower extremity edema. Regarding gallbladder, patient states that she has been evaluated for gallbladder surgery but this has been put on hold. EKG sinus rhythm with no acute ST-T wave changes. Chest x-ray: Findings suggestive of CHF exacerbation. WBC 4, hemoglobin 8.1, platelet count 165. INR 1. Sodium 141, potassium 3.4, BUN 39 creatinine 6.5. Magnesium 1.9. Total bilirubin 1.9, AST 414, ALT 134, alkaline phosphatase 224. Troponin negative x 1. proBNP 3270. Influenza A, influenza B, RSV, COVID-19 not detected. Home cardiac medications: Aspirin 325 mg daily, Coreg 25 mg twice daily, simvastatin 40 mg at bedtime, patient is also on midodrine as needed and levothyroxine. 06/01/2023 The patient was seen and examined resting comfortably in bed. She is overall feeling a bit better. Her abdomen is feeling better. She denies any complaints of chest discomfort at this time. Denies any shortness of breath at this time. She was seen and examined by surgical team and recommended cholecystectomy. She is scheduled for a Lexiscan MPI to be done on Saturday. Echocardiogram is pending. 06/02/2023 The patient was seen and examined resting comfortably bed. She feels her breathing is stable. She has had no further abdominal pain. She has had no nausea or vomiting. She denies any complaints of chest discomfort. She is scheduled for a Lexiscan MPI to be done tomorrow. Echocardiogram remains pending. 06/03/2023 Patient examined this morning. Patient is resting comfortably in bed. Patient denies any chest pain or pressure. She denies any shortness of breath. She denies any abdominal pain. No complaints of nausea or vomiting. Vital signs are stable. She is scheduled to undergo Lexiscan stress test today. PHYSICAL EXAM: VITAL SIGNS: Reviewed. GENERAL: Well-developed in no acute distress. NECK: Supple. No JVD or thyromegaly LUNGS: Respirations even and unlabored. Lungs essentially clear to auscultation bilaterally. HEART: Regular rate and rhythm. S1 and S2 heard. EXTREMITIES: Normal range of motion. No clubbing or cyanosis. Peripheral pulses intact. No lower extremity edema. AV fistula to right arm. ASSESSMENT: Chronic cholecystitis End-stage renal disease on hemodialysis Hypertension Hyperlipidemia Diabetes Obstructive sleep apnea Hypothyroidism PLAN: 2D echo ordered. Await results Patient scheduled for Lexiscan stress test today Patient is tentatively scheduled for surgery this afternoon with general surgery for cholecystectomy Cardiac clearance for surgery is pending echocardiogram results and Lexiscan stress test results Nurse practitioner note has been reviewed by physician. Signing provider agrees with the documented findings, assessment, and plan of care documented by OFFICE EQUIPMENT MECHANIC as a scribe. Objective - Vital Signs Vital signs: Vital Signs Temp 97.4 F L 06/03/23 04:00 Pulse 69 06/03/23 04:00 Resp 18 06/03/23 04:00 BP 103/53 06/03/23 04:00 Pulse Ox 97 06/03/23 04:00 FiO2 Intake & Output 06/02/23 06/03/23 06/03/23 18:59 06:59 18:59 Intake Total 120 Balance 120 Weight 139.2 kg Intake: Oral 120 Other: Voiding Method Toilet Toilet # Voids 0 0 - Labs CBC & Chem 7: 06/03/23 06:47 06/03/23 06:47 Labs: Abnormal Lab Results - Last 24 Hours (Table) 06/02/23 06/02/23 06/02/23 Range/Units 11:47 16:33 19:47 RBC (3.80-5.40) m/uL Hgb (11.4-16.0) gm/dL Hct (34.0-46.0) % MCV (80.0-100.0) fL RDW (11.5-15.5) % Plt Count (150-450) k/uL Sodium (137-145) mmol/L BUN (7-17) mg/dL Creatinine (0.52-1.04) mg/dL POC Glucose (mg/dL) 162 H 208 H 175 H (70-110) mg/dL Calcium (8.4-10.2) mg/dL Total Bilirubin (0.2-1.3) mg/dL AST (14-36) U/L ALT (4-34) U/L Alkaline Phosphatase (38-126) U/L Total Protein (6.3-8.2) g/dL Albumin (3.5-5.0) g/dL 06/03/23 06/03/23 Range/Units 06:47 06:47 RBC 2.56 L (3.80-5.40) m/uL Hgb 8.7 L (11.4-16.0) gm/dL Hct 26.6 L (34.0-46.0) % MCV 103.7 H (80.0-100.0) fL RDW 16.4 H (11.5-15.5) % Plt Count 127 L (150-450) k/uL Sodium 134 L (137-145) mmol/L BUN 50 H (7-17) mg/dL Creatinine 5.63 H (0.52-1.04) mg/dL POC Glucose (mg/dL) (70-110) mg/dL Calcium 8.3 L (8.4-10.2) mg/dL Total Bilirubin 2.8 H (0.2-1.3) mg/dL AST 156 H (14-36) U/L ALT 139 H (4-34) U/L Alkaline Phosphatase 445 H (38-126) U/L Total Protein 6.0 L (6.3-8.2) g/dL Albumin 2.7 L (3.5-5.0) g/dL
[2023-06-03 11:27] LABS: Glucose,Whole Blood 84 mg/dL (70-110)
--- NOTE | 2023-06-03 11:30 | P.PN ---
Subjective Progress Note Date: 06/03/23 Principal diagnosis: Transaminitis This is a pleasant 68-year-old female with a history of end-stage renal disease on hemodialysis, congestive heart failure, obesity, hyperlipidemia, and diabetes mellitus who presented to the emergency department with complaints of nausea, vomiting and diarrhea. Apparently yesterday she went for hemodialysis and they infiltrated her fistula she was unable to get hemodialysis and presented to the emergency department. She was noted to have elevated LFTs but apparently may have some history with her gallbladder and was recently worked up with gallbladder ultrasound and HIDA scan done in April 2023. HIDA scan reported biliary hypokinesia. No obstruction identified. She denies any the abdominal pain, still has some nausea but has not vomited recently. CT abdomen and pelvis with no acute findings. Gallbladder ultrasound reports hepatomegaly redemonstrated. Heterogeneous hyperechoic appearance of the liver suggesting diffuse fatty infiltrative hepatocellular disease. No adjacent ascites. Gallstones redemonstrated without ultrasound evidence for acute cholecystitis. She had a low-grade temp of 100.0 on admission. Labs WBC 4.0 hemoglobin 8.1 hematocrit 23 platelet count 165,000 INR 1.0 sodium 141 potassium 3.4 BUN 39 creatinine 6.5 total bilirubin 1.9 AST 414 ALT 154 alkaline phosphatase 224 amylase 49 lipase 315 06/03/2023 Patient is scheduled to undergo cholecystectomy today. She is down for Lexiscan stress test. Cardiology hands ended up clearing patient to undergo cholecystectomy. Patient is to go this afternoon. She denies any abdominal pain, no nausea or vomiting. She continues to have elevated LFTs total bilirubin 2.8 AST 156 ALT 139 alkaline phosphatase 445 Objective - Vital Signs Vital signs: Vital Signs Temp 97.4 F L 06/03/23 04:00 Pulse 69 06/03/23 04:00 Resp 18 06/03/23 04:00 BP 103/53 06/03/23 04:00 Pulse Ox 97 06/03/23 04:00 FiO2 Intake & Output 06/02/23 06/03/23 06/03/23 18:59 06:59 18:59 Intake Total 120 Balance 120 Weight 139.2 kg Intake: Oral 120 Other: Voiding Method Toilet Toilet # Voids 0 0 - Exam General appearance: The patient is alert, oriented, appears in no acute distress. HET: Head is normocephalic and atraumatic. Conjunctiva pink. Sclera anicteric. Neck: Supple without lymphadenopathy. Abdomen: Soft, nontender, obese, nondistended. Extremities: Normal skin color and turgor. No pedal edema Skin: No rashes, no jaundice Neurological: No focal deficits. Alert and oriented. - Labs CBC & Chem 7: 06/03/23 06:47 06/03/23 06:47 Labs: Abnormal Lab Results - Last 24 Hours (Table) 06/02/23 06/02/23 06/02/23 Range/Units 11:47 16:33 19:47 RBC (3.80-5.40) m/uL Hgb (11.4-16.0) gm/dL Hct (34.0-46.0) % MCV (80.0-100.0) fL RDW (11.5-15.5) % Plt Count (150-450) k/uL Sodium (137-145) mmol/L BUN (7-17) mg/dL Creatinine (0.52-1.04) mg/dL POC Glucose (mg/dL) 162 H 208 H 175 H (70-110) mg/dL Calcium (8.4-10.2) mg/dL Total Bilirubin (0.2-1.3) mg/dL AST (14-36) U/L ALT (4-34) U/L Alkaline Phosphatase (38-126) U/L Total Protein (6.3-8.2) g/dL Albumin (3.5-5.0) g/dL 06/03/23 06/03/23 Range/Units 06:47 06:47 RBC 2.56 L (3.80-5.40) m/uL Hgb 8.7 L (11.4-16.0) gm/dL Hct 26.6 L (34.0-46.0) % MCV 103.7 H (80.0-100.0) fL RDW 16.4 H (11.5-15.5) % Plt Count 127 L (150-450) k/uL Sodium 134 L (137-145) mmol/L BUN 50 H (7-17) mg/dL Creatinine 5.63 H (0.52-1.04) mg/dL POC Glucose (mg/dL) (70-110) mg/dL Calcium 8.3 L (8.4-10.2) mg/dL Total Bilirubin 2.8 H (0.2-1.3) mg/dL AST 156 H (14-36) U/L ALT 139 H (4-34) U/L Alkaline Phosphatase 445 H (38-126) U/L Total Protein 6.0 L (6.3-8.2) g/dL Albumin 2.7 L (3.5-5.0) g/dL Assessment and Plan (1) Nausea and vomiting Narrative/Plan: 68-year-old female presenting with nausea and vomiting. Patient is a hemodialysis patient who was supposed to get hemodialysis yesterday however after 30 minutes her fistula infiltrated. She came in and presented with nausea and vomiting, fluid overload. Was noted to have elevated liver enzymes as well. Patient does have a history of elevated liver enzymes in the past. She has a history of hepatocellular disease as noted on CT abdomen pelvis and previous imaging. Likely secondary to diabetes mellitus and hepatic steatosis. Gallbladder ultrasound does show some gallstones without any CBD dilation. CT abdomen pelvis with no acute findings. Will treat symptomatically for nausea and vomiting and can trend LFTs. Will also consult general surgery for cholelithiasis, elevated liver enzymes and history of biliary hyperkinesia seen on recent HIDA scan done on 05/13/2023. Current Visit: Yes Status: Acute Code(s): R11.2 - NAUSEA WITH VOMITING, UNSPECIFIED SNOMED Code(s): 64508267 (2) Elevated liver enzymes Narrative/Plan: possibly superimposed from underlying hepatocellular disease from diabetes mellitus and hepatic steatosis, however need to consider a cholestatic pattern from possible choledocholithiasis as they have continued to trend up. Patient is scheduled for laparoscopic cholecystectomy today with general surgery. Current Visit: No Status: Acute Code(s): R74.8 - ABNORMAL LEVELS OF OTHER SERUM ENZYMES SNOMED Code(s): 234031475 (3) End stage renal disease Narrative/Plan: Patient end-stage renal disease on hemodialysis. Continue with recommendations from nephrology Current Visit: No Status: Acute Code(s): N18.6 - END STAGE RENAL DISEASE SNOMED Code(s): 81168176 Plan: 1. Continue symptomatic and supportive care 2. Daily CMP 3. Patient scheduled to undergo laparoscopic cholecystectomy today 4. Cardiology following, patient undergoing stress test 5. Further recommendations forthcoming based on clinical course Thank you for this consultation, we will continue to follow. Dr. Mili Poe I agree with the dictator's note, documented as a scribe by Radha Melton.
--- NOTE | 2023-06-03 12:36 | NM ---
EXAMINATION TYPE: NM stress lexiscan cardiolite DATE OF EXAM: 06/03/2023 COMPARISON: NONE CLINICAL INDICATION: Female, 68 years old with history of dyspnea on exertion; TECHNIQUE: After the intravenous administration of 10.8 mCi Tc 99m Sestamibi - Cardiolite resting SP ECT images acquired 45 minutes post injection. The patient received 0.4mg Lexiscan, 26.5 mCi Tc 99m Sestamibi - Stress images obtained [address] injection FINDINGS: Review of stress and rest SPECT images demonstrates no distinct perfusion abnormality. Gated analysi s shows reduced wall motion with an estimated left ventricular ejection fraction of 40 %. IMPRESSION: No scintigraphic evidence for reversible ischemia. Ejection fraction is 40% correlate clinically.
[2023-06-03] MEDS: IV FLUID CONTINUATION 100 ML IV ONE (13:35)
[2023-06-03] MEDS: LIDOCAINE 2%-EPI 1:100,000 20 ML VIAL SQ ONE ×2 (13:48→14:45)
[2023-06-03 13:58] LABS: Glucose,Whole Blood 90 mg/dL (70-110)
[2023-06-03] MEDS: SODIUM CHLORIDE 0.9% 500 ML 500 ML IV ONE (14:00)
[2023-06-03] MEDS ORDERED: ETOMIDATE 2 MG/ML 10 ML VIAL ONE (14:12)
[2023-06-03] MEDS ORDERED: ROCURONIUM 10 MG/ML (5 ML VIAL) IV ONE (14:12)
[2023-06-03] MEDS ORDERED: GLYCOPYRROLATE 0.2 MG/ML 2 ML VIAL ONE (14:12)
[2023-06-03] MEDS ORDERED: NEOSTIGMINE 1 MG/ML 10 ML VIAL ONE (14:12)
[2023-06-03] MEDS ORDERED: fentaNYL (PF) 50 MCG/ML 2 ML AMP ONE (14:12)
[2023-06-03] MEDS ORDERED: SUCCINYLCHOLINE CHLORIDE 200 MG/10 ML VIAL IV ONE (14:12)
[2023-06-03] MEDS ORDERED: ePHEDrine 50 MG/ML 1 ML VIAL ONE (14:12)
[2023-06-03] MEDS ORDERED: LIDOCAINE 1% INJ 10MG/ML (20 ML MDV) ONE (14:12)
[2023-06-03] MEDS ORDERED: HEPARIN SODIUM,PORCINE 5,000 UNIT/ML 1 ML VIAL ONE (14:12)
--- NOTE | 2023-06-03 15:35 | P.OP ---
Date of Procedure: 06/03/23 Preoperative Diagnosis: Cholecystitis Postoperative Diagnosis: Cholecystitis Procedure(s) Performed: Laparoscopic cholecystectomy Anesthesia: ASCENCION Surgeon: Moreno Andrews Estimated Blood Loss (ml): 5 Pathology: other (Gallbladder) Condition: stable Disposition: PACU Description of Procedure: The patient was placed on the operating table. The patient received a general endotracheal tube anesthesia. The patients abdomen was prepped and draped in the usual sterile fashion. Through an infraumbilical stab incision, the fascia of the anterior abdominal wall was grasped with a pair of Kochers and then the Veress needle was placed in the peritoneal cavity. Position of the Veress needle was confirmed with positive drop test. The abdomen was then insufflated. After adequate insufflation, the 10 mm trocar was placed in the peritoneal cavity. Following this the laparoscope was placed in the peritoneal cavity. The patient was placed in the head-up, right side up position and then a 5 mm trocar was placed in the right lateral and right subcostal position under direct visualization. A 8 mm trocar was placed in the epigastric position. The gallbladder was grasped in the fundus and infundibulum. Traction on the gallbladder was placed in the lateral and the cephalad positions. The triangle of Calot was visualized.. The cystic duct was bluntly dissected until the union of the cystic duct and common bile duct was seen. A critical view of safety was achieved. The cystic duct was then divided and sealed with the Harmonic scissors. A PDS Endoloop was then placed throughout the cystic duct stump. The cystic artery divided and sealed with the Harmonic scissors. The gallbladder was then removed from the liver bed using Harmonic scissors. The gallbladder was then extracted through the epigastric port site. Operative field was checked for any bleeding spots and Harmonic scissors was used to coagulate the liver bed. The abdomen was irrigated. The trocars were removed. The skin was closed using interrupted 3-0 Vicryl suture. Dermabond dressing were applied. The patient tolerated the procedure well.
[2023-06-03] MEDS ORDERED: ONDANSETRON 4 MG/2 ML VIAL IVP PRN (15:36)
--- NOTE | 2023-06-03 15:39 | CA ---
Lexiscan Nuclear Stress Test Report Name: Adalgisa Gonzalez Exam Date: 06/03/2023 09:24 Exam Location: [facility] Ht (in): 63 Wt (lb): 306 BSA: 2.32 Ordering Phys: Yu Mcallister Referring Phys: Candelaria Barrera MD Technologist: Gallito Gorman Age: 68 Gender: F : 1955 Procedure CPT: Indications: Reflex order-Stress test ICD-10 Codes: Patient History: Medications: SEE CHART Meds past 24 hrs: Pretest Chest Pain: STRESS TEST Lexiscan Protocol Exercise Duration (min:sec): 01:[address] Depressions (mm): Angina Score: Fuentes Score: Resting HR (bpm): 55 Peak HR (bpm): 61 Resting BP (mmHg): 120 / 62 Peak BP (mmHg): 113 / 49 MPHR: 150 Target HR: 128 % MPHR: 41 METS: 1.0 Total Dose: Peak Dose: Atropine: Double Product: 6893 BP Response: Stress Termination: INFUSION COMPLETE Stress Symptoms: NO SYMPTOMS Stress Summary: ECG ANALYSIS Resting ECG: Normal sinus rhythm, normal axis, Q waves in inferior lead and V5 and V6 Stress ECG: No significant ST-T wave changes diagnostic for ischemia by ST segment analysis CONCLUSIONS 1. Normal hemodynamic and heart response to Lexiscan infusion. 2. Non-ischemic EKG response to lexiscan infusion 3. Nuclear perfusion imaging is reported separately by the radiology team. Please refer to that report for complete interpretation of this study. Dr Zen Dixon (Electronically Signed) Final Date: 03 June 2023 15:39
[2023-06-03 15:50] LABS: Glucose,Whole Blood 97 mg/dL (70-110)
[2023-06-03 20:10] LABS: Glucose,Whole Blood 125 mg/dL (70-110)
--- NOTE | 2023-06-03 20:41 | P.PN ---
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 Patient has end-stage renal disease on hemodialysis 3 times a week also has known to have type 2 diabetes, obstructive sleep apnea, hypertension, hyperlipidemia, hypothyroidism, she brought to the emergency department because of intractable nausea vomiting and diarrhea could not complete dialysis yesterday with worsening fever and chills with abdominal distention without any significant chest pain no bloody stool. Also had infiltrate her fistula which the reason why here hemodialysis was stopped early. With her current symptoms and the significant abnormal liver function test from her last hospitalization which patient was study in detail and found to have biliary hypokinesia via HIDA scan done last month. Patient liver function test this time came back with total bilirubin of 1.9 with AST of 414 and ALT 154 with alkaline phosphatase 224 also lipase of 315 with amylase of 49 which make the diagnosis of subacute pancreatitis as well. Also she continued to have significant anemia with hemoglobin of 8.1 platelet count 1 65, 000 patient creatinine was 6.5 with BUN of 39. Patient was seen and evaluated at the emergency department with above complaint COVID influenza and RSV were negative, CT of the abdomen and pelvis was performed again this time and showed no bowel obstruction with no acute finding identified to the amount of patient's symptoms of the pancreas visualized to be fine with small but prominent calcification on the gallbladder as a gallstone with no surrounding ill-defined fluid and fat stranding. Gallbladder ultrasound was performed again as well and showed hepatomegaly with heterogeneous hyper echoic appearance of the liver suggestive of diffuse fatty infiltrate with hepatocellular disease with no adjacent ascites, gallstones redemonstrated without ultrasound evidence of acute cholecystitis. Patient was hospitalized and consult at this point gastroenterology for her recurrent symptoms with nausea and vomiting to conclude the possibility of gallbladder and gallstone with abnormal liver function test. And also to help to make decision whether her gallbladder should be removed or not. Cardiology consultation for cardiology clearance which patient has no history of cardiac disease no change on her EKG at this point or any change in cardiac enzymes. Nephrology consultation was requested to continue hemodialysis. Also request consult of vascular for her fistula. 06/03/2023: Patient was evaluated through the weekend by cardiology, general surgery, nephrology. Was continued on hemodialysis, also continue on IV antibiotic with Rocephin and Flagyl due to slight concern of leukocytosis. 3 did not have any increased nausea or vomiting no diarrhea, liver function test still slightly bit elevated. Cardiology evaluated patient ordered an echocardiogram and and furthermore decided to do a nuclear stress test before clearing her for surgery. Nuclear stress test scheduled this morning if patient goes through with no problem she will be going for her cholecystectomy as an extent. REVIEW OF SYSTEMS: CONSTITUTIONAL: Well-developed no acute respiratory distress. EYES: No icterus sclerae, no conjunctivitis. EARS, NOSE, MOUTH, THROAT, and FACE: No sore throat, lymphadenopathy, carotid bruits or deformity. RESPIRATORY: Slight shortness of breath no cough or wheezes.. CARDIOVASCULAR: Positive PND orthopnea palpitation no angina.. GASTROINTESTINAL: Positive abdominal pain with nausea vomiting diarrhea no constipation no acute gastrointestinal bleed no distention or masses.. GENITOURINARY: Decreased urine output she is on hemodialysis.. INTEGUMENT/BREAST: Negative for any muscular injury with mild osteoarthritis.. HEMATOLOGIC/LYMPHATIC: Chronic anemia and hematoma around the fistula graft.. MUSCULOSKELTAL: Negative for Myalgia or arthralgia. NEURLOGICAL: No LOC, Sz or syncope, blurred vision dizziness or abnormality.. BEHAVIORAL/PSYCH: Negative. ENDOCRINE: Negative. PHYSICAL EXAMINATION: General Appearance: Alert, cooperative, no distress, appears stated age. Neck HEENT: Supple, no lymphadenopathy, no thyroid enlargement, no carotid bruits. Lungs: Positive fine rhonchi in the bases with crackles mostly limited area on the right side no wheezes. Chest Wall: Decreased expansion with deep inspiration no tenderness and no deformity was found on exam, no costochondral pain or discomfort. Heart: Regular rate and rhythm, S1, S2 normal, no murmur, rub or gallop. Back: Symmetric, no curvature, ROM normal, no CVA tenderness. Abdomen: Soft with slight tenderness in the mid epigastric and right upper quadrant area no rebound or rigidity slight hepatomegaly not able to feel any splenomegaly at this point and very limited amount of ascites. Extremities: Trace edema, her fistula graft in the left side has slight hematoma on the side. Pulses: 2+ and symmetric. Skin: Skin color, texture, tugor normal, no rashes or lesions. Neurologic: Alert oriented x3 cranial nerves II through XII intact, no motor deficit, no abnormal balance or gait. ASSESSMENT AND PLAN: _Acute on subacute pancreatitis most likely from the effect of her gallbladder and gallstone HIDA scan was positive from last time patient been evaluated for cholecystectomy patient has completed testing. _Gallstone without any acute cholecystitis: With the possibility of possible common duct stone passing black the pancreatic duct causing subacute pancreatitis patient will remain on antibiotic for treating this? Of ascending cholangitis till infection is clear out till the gallbladder is out. _Possible gallbladder dyskinesia: Will be going for HIDA scan there is possibility of some stone in the gallbladder, and at this stage with recurrent symptoms patient probably will need to go for cholecystectomy. _Cardiac clearance: From cardiac standpoint looks like patient will be going for nuclear stress test after echocardiogram for clearance if all negative patient be cleared for surgery. _End-stage renal disease: On hemodialysis 3 times a week resume dialysis. Resume dialysis continue phosphorus stabilizing medication and vitamin D. _Hypertension: Blood pressure remains well-controlled on Coreg 25 mg twice a day should be on smaller dose of losartan as well. _Hypothyroidism: Continue levothyroxine 225 mcg daily on Saturday the rest of the week is on 50 mcg. _Type 2 diabetes: Continue Humalog 22 units AC meals still on Lantus 23 units twice daily as well, continue Accu-Chek with sliding scale coverage. _Chronic anemia: Iron deficiency from end-stage renal disease continue to watch hemoglobin and iron level continue Procrit. Planning: Patient is going for nuclear stress this morning was all goes well she will be going for gallbladder surgery afterward. Objective - Vital Signs Vital signs: Vital Signs Temp 97.4 F L 06/03/23 04:00 Pulse 69 06/03/23 04:00 Resp 18 06/03/23 04:00 BP 103/53 06/03/23 04:00 Pulse Ox 97 06/03/23 04:00 FiO2 Intake & Output 06/02/23 06/02/23 06/03/23 06:59 18:59 06:59 Intake Total 120 Balance 120 Weight 139.2 kg Intake: Oral 120 Other: Voiding Method Toilet Toilet Toilet # Voids 0 0 0 # Bowel Movements 0 - Labs CBC & Chem 7: 06/03/23 06:47 06/03/23 06:47 Labs: Abnormal Lab Results - Last 24 Hours (Table) 06/02/23 06/02/23 06/02/23 Range/Units 06:49 06:49 11:47 RBC 2.64 L (3.80-5.40) m/uL Hgb 9.0 L (11.4-16.0) gm/dL Hct 27.9 L (34.0-46.0) % MCV 105.3 H (80.0-100.0) fL RDW 16.4 H (11.5-15.5) % Sodium 135 L (137-145) mmol/L BUN 37 H (7-17) mg/dL Creatinine 4.26 H (0.52-1.04) mg/dL POC Glucose (mg/dL) 162 H (70-110) mg/dL Total Bilirubin 2.5 H (0.2-1.3) mg/dL AST 179 H (14-36) U/L ALT 150 H (4-34) U/L Alkaline Phosphatase 327 H (38-126) U/L Albumin 3.1 L (3.5-5.0) g/dL 06/02/23 06/02/23 Range/Units 16:33 19:47 RBC (3.80-5.40) m/uL Hgb (11.4-16.0) gm/dL Hct (34.0-46.0) % MCV (80.0-100.0) fL RDW (11.5-15.5) % Sodium (137-145) mmol/L BUN (7-17) mg/dL Creatinine (0.52-1.04) mg/dL POC Glucose (mg/dL) 208 H 175 H (70-110) mg/dL Total Bilirubin (0.2-1.3) mg/dL AST (14-36) U/L ALT (4-34) U/L Alkaline Phosphatase (38-126) U/L Albumin (3.5-5.0) g/dL
[2023-06-04 07:02] LABS: Glucose,Whole Blood 141 mg/dL (70-110)
[2023-06-04] MEDS: ENOXAPARIN 40 MG/0.4 ML SYRINGE SQ SCH (08:35)
[2023-06-04 09:01] LABS: Anisocytosis Slight; HCT 27.9 % (34.0-46.0); Hypochromasia Slight; MCH 34.4 pg (25.0-35.0); MCHC 32.2 g/dL (31.0-37.0); MCV 106.9 fL (80.0-100.0); Macrocytosis Marked; Mean Platelet Volume 10.9; Platelet Count 116 k/uL (150-450); RBC 2.61 m/uL (3.80-5.40); RDW 16.3 % (11.5-15.5); WBC 8.8 k/uL (3.8-10.6)
[2023-06-04 09:14] LABS: ALT 106 U/L (4-34); AST 137 U/L (14-36); African American GFR (CKD) 6 (>60 ml/min/1.73 sqM); Albumin 2.6 g/dL (3.5-5.0); Alkaline Phosphatase 505 U/L (38-126); Anion Gap 10 mmol/L; Blood Urea Nitrogen 62 mg/dL (7-17); Calcium 8.3 mg/dL (8.4-10.2); Carbon Dioxide 24 mmol/L (22-30); Chloride 99 mmol/L (98-107); Glucose 137 mg/dL (74-99); Non-African American GFR(CKD) 6 (>60 ml/min/1.73 sqM); Potassium 4.6 mmol/L (3.5-5.1); Sodium 133 mmol/L (137-145); Total Bilirubin 3.9 mg/dL (0.2-1.3)
--- NOTE | 2023-06-04 10:51 | P.PN ---
Subjective Progress Note Date: 06/04/23 Principal diagnosis: Transaminitis This is a pleasant 68-year-old female with a history of end-stage renal disease on hemodialysis, congestive heart failure, obesity, hyperlipidemia, and diabetes mellitus who presented to the emergency department with complaints of nausea, vomiting and diarrhea. Apparently yesterday she went for hemodialysis and they infiltrated her fistula she was unable to get hemodialysis and presented to the emergency department. She was noted to have elevated LFTs but apparently may have some history with her gallbladder and was recently worked up with gallbladder ultrasound and HIDA scan done in April 2023. HIDA scan reported biliary hypokinesia. No obstruction identified. She denies any the abdominal pain, still has some nausea but has not vomited recently. CT abdomen and pelvis with no acute findings. Gallbladder ultrasound reports hepatomegaly redemonstrated. Heterogeneous hyperechoic appearance of the liver suggesting diffuse fatty infiltrative hepatocellular disease. No adjacent ascites. Gallstones redemonstrated without ultrasound evidence for acute cholecystitis. She had a low-grade temp of 100.0 on admission. Labs WBC 4.0 hemoglobin 8.1 hematocrit 23 platelet count 165,000 INR 1.0 sodium 141 potassium 3.4 BUN 39 creatinine 6.5 total bilirubin 1.9 AST 414 ALT 154 alkaline phosphatase 224 amylase 49 lipase 315 06/03/2023 Patient is scheduled to undergo cholecystectomy today. She is down for Lexiscan stress test. Cardiology hands ended up clearing patient to undergo cholecystectomy. Patient is to go this afternoon. She denies any abdominal pain, no nausea or vomiting. She continues to have elevated LFTs total bilirubin 2.8 AST 156 ALT 139 alkaline phosphatase 445 06/04/2023 Patient seen and examined today as a follow-up. Yesterday she underwent laparoscopic cholecystectomy. She states she does have some surgical discomfort but no nausea or vomiting. No epigastric or right upper quadrant pain. She is about to undergo hemodialysis. She is tentatively been discharged by her primary care physician pending clearance from general surgery and infectious disease. Patient has been afebrile. LFTs continue to remain elevated, today's labs total bilirubin 3.9 AST 137 ALT 106 alkaline phosphatase 505. Objective - Vital Signs Vital signs: Vital Signs Temp 97.7 F 06/04/23 08:00 Pulse 51 L 06/04/23 09:07 Resp 16 06/04/23 09:07 BP 95/63 06/04/23 08:00 Pulse Ox 99 06/04/23 08:00 FiO2 Intake & Output 06/03/23 06/04/23 06/04/23 18:59 06:59 18:59 Intake Total 460 340 218 Output Total 5 Balance 455 340 218 Weight 140.7 kg Intake: IV 310 Intake, IV Titration 150 220 100 Amount Lactated Ringers 1,000 ml 120 @ 20 mls/hr IV .Q24H [facility] Rx#:[id number] cefTRIAXone 2 gm In 50 Sodium Chloride 0.9% 50 ml @ 100 mls/hr IVPB Q24HR [facility] Rx#:[id number] metroNIDAZOLE-NS PMX 500 100 100 100 mg In Saline 1 100ml.bag @ 100 mls/hr IVPB Q8HR [facility] Rx#:[id number] Oral 120 118 Output: Estimated Blood Loss 5 Other: Voiding Method Toilet Toilet Toilet - Exam General appearance: The patient is alert, oriented, appears in no acute distress . HET: Head is normocephalic and atraumatic. Conjunctiva pink. Sclera anicteric. Neck: Supple without lymphadenopathy. Abdomen: Soft, no epigastric or right upper quadrant tenderness, surgical inc ision tenderness, obese, nondistended. Extremities: Normal skin color and turgor. No pedal edema Skin: No rashes, jaundice. Neurological: No focal deficits. Alert and oriented. - Labs CBC & Chem 7: 06/04/23 08:18 06/04/23 08:18 Labs: Abnormal Lab Results - Last 24 Hours (Table) 06/03/23 06/04/23 06/04/23 Range/Units 20:03 06:59 08:18 RBC 2.61 L (3.80-5.40) m/uL Hgb 9.0 L (11.4-16.0) gm/dL Hct 27.9 L (34.0-46.0) % MCV 106.9 H (80.0-100.0) fL RDW 16.3 H (11.5-15.5) % Plt Count 116 L (150-450) k/uL Macrocytosis Marked A Sodium (137-145) mmol/L BUN (7-17) mg/dL Creatinine (0.52-1.04) mg/dL Glucose (74-99) mg/dL POC Glucose (mg/dL) 125 H 141 H (70-110) mg/dL Calcium (8.4-10.2) mg/dL Total Bilirubin (0.2-1.3) mg/dL AST (14-36) U/L ALT (4-34) U/L Alkaline Phosphatase (38-126) U/L Total Protein (6.3-8.2) g/dL Albumin (3.5-5.0) g/dL 06/04/23 Range/Units 08:18 RBC (3.80-5.40) m/uL Hgb (11.4-16.0) gm/dL Hct (34.0-46.0) % MCV (80.0-100.0) fL RDW (11.5-15.5) % Plt Count (150-450) k/uL Macrocytosis Sodium 133 L (137-145) mmol/L BUN 62 H (7-17) mg/dL Creatinine 6.91 H (0.52-1.04) mg/dL Glucose 137 H (74-99) mg/dL POC Glucose (mg/dL) (70-110) mg/dL Calcium 8.3 L (8.4-10.2) mg/dL Total Bilirubin 3.9 H (0.2-1.3) mg/dL AST 137 H (14-36) U/L ALT 106 H (4-34) U/L Alkaline Phosphatase 505 H (38-126) U/L Total Protein 6.0 L (6.3-8.2) g/dL Albumin 2.6 L (3.5-5.0) g/dL Assessment and Plan (1) Nausea and vomiting Narrative/Plan: 68-year-old female presenting with nausea and vomiting. Patient is a hemodialysis patient who was supposed to get hemodialysis yesterday however after 30 minutes her fistula infiltrated. She came in and presented with nausea and vomiting, fluid overload. Was noted to have elevated liver enzymes as well. Patient does have a history of elevated liver enzymes in the past. She has a history of hepatocellular disease as noted on CT abdomen pelvis and previous imaging. Likely secondary to diabetes mellitus and hepatic steatosis. Gallbladder ultrasound does show some gallstones without any CBD dilation. CT abdomen pelvis with no acute findings. Will treat symptomatically for nausea and vomiting and can trend LFTs. Will also consult general surgery for cholelithiasis, elevated liver enzymes and history of biliary hyperkinesia seen on recent HIDA scan done on 05/13/2023. Current Visit: Yes Status: Acute Code(s): R11.2 - NAUSEA WITH VOMITING, UNSPECIFIED SNOMED Code(s): 65816499 (2) Elevated liver enzymes Narrative/Plan: possibly superimposed from underlying hepatocellular disease from diabetes mellitus and hepatic steatosis, however need to consider a cholestatic pattern from possible choledocholithiasis as they have continued to trend up. Patient is scheduled for laparoscopic cholecystectomy today with general surgery. Current Visit: No Status: Acute Code(s): R74.8 - ABNORMAL LEVELS OF OTHER SERUM ENZYMES SNOMED Code(s): 398664696 (3) End stage renal disease Narrative/Plan: Patient end-stage renal disease on hemodialysis. Continue with recommendations from nephrology Current Visit: No Status: Acute Code(s): N18.6 - END STAGE RENAL DISEASE SNOMED Code(s): 64047922 Plan: 1. Continue symptomatic and supportive care 2. Patient is postop day #1 for laparoscopic cholecystectomy 3. Daily CMP 4. Diet per general surgery recommendations 5. Encourage ambulation 6. Consider MRCP for continued elevated LFTs. Patient is currently asymptomatic, and if patient is going to be discharged can follow-up with gastroenterology next week to trend LFTs and consider possible outpatient MRCP at that time. Thank you for this consultation, we will continue to follow. Dr. Mili Poe I agree with the dictator's note, documented as a scribe by Radha Melton.
--- NOTE | 2023-06-04 11:09 | P.PN ---
Subjective HISTORY OF PRESENT ILLNESS: This is a 68-year-old female with no previous clinical tech, does not have cardiac history. She has a past medical history of end-stage renal disease on hemodialysis, diabetes mellitus, hypertension, hyperlipidemia, hypothyroidism, obstructive sleep apnea on CPAP. We have been asked to evaluate patient for CHF. Patient states that she had nausea vomiting diarrhea could not complete her dialysis treatment she also had chills. Abdominal distention. And dizziness. She denies having any chest pain. She denies having any blood in her stools. She states she did have some shortness of breath because she did not finish her dialysis treatment. She states she is a non-smoker. No lower extremity edema. Regarding gallbladder, patient states that she has been evaluated for gallbladder surgery but this has been put on hold. EKG sinus rhythm with no acute ST-T wave changes. Chest x-ray: Findings suggestive of CHF exacerbation. WBC 4, hemoglobin 8.1, platelet count 165. INR 1. Sodium 141, potassium 3.4, BUN 39 creatinine 6.5. Magnesium 1.9. Total bilirubin 1.9, AST 414, ALT 134, alkaline phosphatase 224. Troponin negative x 1. proBNP 3270. Influenza A, influenza B, RSV, COVID-19 not detected. Home cardiac medications: Aspirin 325 mg daily, Coreg 25 mg twice daily, simvastatin 40 mg at bedtime, patient is also on midodrine as needed and levothyroxine. 06/01/2023 The patient was seen and examined resting comfortably in bed. She is overall feeling a bit better. Her abdomen is feeling better. She denies any complaints of chest discomfort at this time. Denies any shortness of breath at this time. She was seen and examined by surgical team and recommended cholecystectomy. She is scheduled for a Lexiscan MPI to be done on Saturday. Echocardiogram is pending. 06/02/2023 The patient was seen and examined resting comfortably bed. She feels her breathing is stable. She has had no further abdominal pain. She has had no nausea or vomiting. She denies any complaints of chest discomfort. She is scheduled for a Lexiscan MPI to be done tomorrow. Echocardiogram remains pending. 06/03/2023 Patient examined this morning. Patient is resting comfortably in bed. Patient denies any chest pain or pressure. She denies any shortness of breath. She denies any abdominal pain. No complaints of nausea or vomiting. Vital signs are stable. She is scheduled to undergo Lexiscan stress test today. Addendum entered and electronically signed by Ladan George NP-C 06/03/23 1 2:52: Gladys scan without evidence of reversible ischemia. Preliminary echocardiogram re veals ejection fraction 35 to 40% with no obvious regional wall motion abnormalities and mild aortic stenosis. There are no absolute contraindications for patient to proceed with surgery from a cardiac standpoint if surgery deemed appropriate to be performed today Recommend cautious fluid administration secondary to low EF and hemodialysis Patient will require eventual workup for her cardiomyopathy 06/04/2023 Patient examined this morning at bedside. Patient is status post laparoscopic cholecystectomy. Postop day #1. Patient denies chest pain or pressure. Denies SOB. Vital signs are stable. Blood pressure remains marginal. PHYSICAL EXAM: VITAL SIGNS: Reviewed. GENERAL: Well-developed in no acute distress. NECK: Supple. No JVD or thyromegaly LUNGS: Respirations even and unlabored. Lungs essentially clear to auscultation bilaterally. HEART: Regular rate and rhythm. S1 and S2 heard. EXTREMITIES: Normal range of motion. No clubbing or cyanosis. Peripheral pulses intact. No lower extremity edema. AV fistula to right arm. ASSESSMENT: Chronic cholecystitis; status post laparoscopic cholecystectomy Cardiomyopathy, EF 35 to 40%, ischemic versus nonischemic Mild aortic stenosis End-stage renal disease on hemodialysis Hypertension Hyperlipidemia Diabetes Obstructive sleep apnea Hypothyroidism PLAN: Continue current cardiac medications Patient unable to tolerate cardiomyopathy regimen secondary to hypotension and requiring midodrine to maintain blood pressures Patient will require further outpatient workup regarding her cardiomyopathy once her acute issues have resolved Patient may be discharged today from a cardiac standpoint and follow up outpatient with Dr. Lomeli Further recommendations pending patient course Nurse practitioner note has been reviewed by physician. Signing provider agrees with the documented findings, assessment, and plan of care documented by RELEASE OF INFORMATION CLERK as a scribe. Objective - Vital Signs Vital signs: Vital Signs Temp 97.8 F 06/04/23 04:00 Pulse 48 L 06/04/23 04:00 Resp 16 06/04/23 04:00 BP 116/67 06/04/23 04:00 Pulse Ox 98 06/04/23 04:00 FiO2 Intake & Output 06/03/23 06/04/23 06/04/23 18:59 06:59 18:59 Intake Total 460 340 118 Output Total 5 Balance 455 340 118 Weight 140.7 kg Intake: IV 310 Intake, IV Titration 150 220 Amount Lactated Ringers 1,000 ml 120 @ 20 mls/hr IV .Q24H [facility] Rx#:[id number] cefTRIAXone 2 gm In 50 Sodium Chloride 0.9% 50 ml @ 100 mls/hr IVPB Q24HR [facility] Rx#:[id number] metroNIDAZOLE-NS PMX 500 100 100 mg In Saline 1 100ml.bag @ 100 mls/hr IVPB Q8HR [facility] Rx#:[id number] Oral 120 118 Output: Estimated Blood Loss 5 Other: Voiding Method Toilet Toilet - Labs CBC & Chem 7: 06/04/23 08:18 06/04/23 08:18 Labs: Abnormal Lab Results - Last 24 Hours (Table) 06/03/23 06/04/23 Range/Units 20:03 06:59 POC Glucose (mg/dL) 125 H 141 H (70-110) mg/dL
--- NOTE | 2023-06-04 11:43 | P.PN ---
Subjective Patient is seen for follow-up for end-stage renal disease. Status post laparoscopic cholecystectomy on 06/03/2023. Tolerating hemodialysis well. Patient is seen on hemodialysis. Objective - Vital Signs Vital signs: Vital Signs Temp 97.5 F L 06/04/23 11:14 Pulse 46 L 06/04/23 11:14 Resp 14 06/04/23 11:14 BP 98/43 06/04/23 11:14 Pulse Ox 95 06/04/23 11:14 FiO2 Intake & Output 06/03/23 06/04/23 06/04/23 18:59 06:59 18:59 Intake Total 460 340 218 Output Total 5 Balance 455 340 218 Weight 140.7 kg Intake: IV 310 Intake, IV Titration 150 220 100 Amount Lactated Ringers 1,000 ml 120 @ 20 mls/hr IV .Q24H [facility] Rx#:[id number] cefTRIAXone 2 gm In 50 Sodium Chloride 0.9% 50 ml @ 100 mls/hr IVPB Q24HR [facility] Rx#:[id number] metroNIDAZOLE-NS PMX 500 100 100 100 mg In Saline 1 100ml.bag @ 100 mls/hr IVPB Q8HR [facility] Rx#:[id number] Oral 120 118 Output: Estimated Blood Loss 5 Other: Voiding Method Toilet Toilet Toilet - Exam Patient is awake, comfortable, in no acute distress Examination of the heart S1 and S2 Examination of the lungs bilateral breath sounds are heard Abdomen is soft, mildly tender Examination of lower extremities shows no significant edema [employer] exam grossly intact - Labs CBC & Chem 7: 06/04/23 08:18 06/04/23 08:18 Labs: Abnormal Lab Results - Last 24 Hours (Table) 06/03/23 06/04/23 06/04/23 Range/Units 20:03 06:59 08:18 RBC 2.61 L (3.80-5.40) m/uL Hgb 9.0 L (11.4-16.0) gm/dL Hct 27.9 L (34.0-46.0) % MCV 106.9 H (80.0-100.0) fL RDW 16.3 H (11.5-15.5) % Plt Count 116 L (150-450) k/uL Macrocytosis Marked A Sodium (137-145) mmol/L BUN (7-17) mg/dL Creatinine (0.52-1.04) mg/dL Glucose (74-99) mg/dL POC Glucose (mg/dL) 125 H 141 H (70-110) mg/dL Calcium (8.4-10.2) mg/dL Total Bilirubin (0.2-1.3) mg/dL AST (14-36) U/L ALT (4-34) U/L Alkaline Phosphatase (38-126) U/L Total Protein (6.3-8.2) g/dL Albumin (3.5-5.0) g/dL 06/04/23 Range/Units 08:18 RBC (3.80-5.40) m/uL Hgb (11.4-16.0) gm/dL Hct (34.0-46.0) % MCV (80.0-100.0) fL RDW (11.5-15.5) % Plt Count (150-450) k/uL Macrocytosis Sodium 133 L (137-145) mmol/L BUN 62 H (7-17) mg/dL Creatinine 6.91 H (0.52-1.04) mg/dL Glucose 137 H (74-99) mg/dL POC Glucose (mg/dL) (70-110) mg/dL Calcium 8.3 L (8.4-10.2) mg/dL Total Bilirubin 3.9 H (0.2-1.3) mg/dL AST 137 H (14-36) U/L ALT 106 H (4-34) U/L Alkaline Phosphatase 505 H (38-126) U/L Total Protein 6.0 L (6.3-8.2) g/dL Albumin 2.6 L (3.5-5.0) g/dL Assessment and Plan Assessment: 1. End-stage renal disease maintained on hemodialysis on Saturday schedule via AV graft. 2. Infiltrated AV graft. Vascular surgery consulted. AV graft is currently functioning 3. Nausea and vomiting. CT showed no acute process. Patient does have gallstones. Surgery and GI following. Status post laparoscopic cholecystectomy 06/03/2023 4. Mild volume overload. 5. Hypotension maintained on midodrine. 6. Diabetes mellitus. 7. Chronic kidney disease mineral bone disease maintained on Renvela. 8. Anemia of chronic kidney disease. Plan: Okay for discharge post hemodialysis from nephrology standpoint.
[2023-06-04 11:50] LABS: Glucose,Whole Blood 78 mg/dL (70-110)
--- NOTE | 2023-06-04 13:24 | P.PN ---
Subjective Progress Note Date: 06/04/23 CHIEF COMPLAINT: Cholecystitis HISTORY OF PRESENT ILLNESS: Patient postop day #1 status post laparoscopic cholecystectomy. Patient currently receiving hemodialysis. She reports her pain is controlled. She has had no further vomiting. Appetite is decreased. Her total bilirubin did go up from 2.8-3.9 alk phos did go up from 4 45-5 05. AST is 137 ALT 106 PHYSICAL EXAM: VITAL SIGNS: Reviewed. GENERAL: Well-developed in no acute distress. ABDOMEN: Soft. Nondistended. Incision sites clean dry and intact NEUROLOGIC: Alert and oriented. Cranial nerves II through XII grossly intact. ASSESSMENT: 1. Cholecystitis status post laparoscopic cholecystectomy 2. Elevated LFTs with increase in total bilirubin and alk phos. Concerns for possible choledocholithiasis and retained stone PLAN: -Patient is not cleared for discharge from surgical standpoint -Recommend repeating LFTs in a.m. -MRCP ordered due to increase in total bilirubin and possibility of a retained stone -Discussed case with GI service -Continue antibiotics -Continue regular diet Physician Ceramics Instructor note has been reviewed by physician. Signing provider agrees with the documented findings, assessment, and plan of care. Objective - Vital Signs Vital signs: Vital Signs Temp 97.5 F L 06/04/23 11:14 Pulse 46 L 06/04/23 11:14 Resp 14 06/04/23 11:14 BP 98/43 06/04/23 11:14 Pulse Ox 95 06/04/23 11:14 FiO2 Intake & Output 06/03/23 06/04/23 06/04/23 18:59 06:59 18:59 Intake Total 460 340 218 Output Total 5 Balance 455 340 218 Weight 140.7 kg Intake: IV 310 Intake, IV Titration 150 220 100 Amount Lactated Ringers 1,000 ml 120 @ 20 mls/hr IV .Q24H [facility] Rx#:[id number] cefTRIAXone 2 gm In 50 Sodium Chloride 0.9% 50 ml @ 100 mls/hr IVPB Q24HR [facility] Rx#:[id number] metroNIDAZOLE-NS PMX 500 100 100 100 mg In Saline 1 100ml.bag @ 100 mls/hr IVPB Q8HR [facility] Rx#:[id number] Oral 120 118 Output: Estimated Blood Loss 5 Other: Voiding Method Toilet Toilet Toilet - Labs CBC & Chem 7: 06/04/23 08:18 06/04/23 08:18 Labs: Abnormal Lab Results - Last 24 Hours (Table) 06/03/23 06/04/23 06/04/23 Range/Units 20:03 06:59 08:18 RBC 2.61 L (3.80-5.40) m/uL Hgb 9.0 L (11.4-16.0) gm/dL Hct 27.9 L (34.0-46.0) % MCV 106.9 H (80.0-100.0) fL RDW 16.3 H (11.5-15.5) % Plt Count 116 L (150-450) k/uL Macrocytosis Marked A Sodium (137-145) mmol/L BUN (7-17) mg/dL Creatinine (0.52-1.04) mg/dL Glucose (74-99) mg/dL POC Glucose (mg/dL) 125 H 141 H (70-110) mg/dL Calcium (8.4-10.2) mg/dL Total Bilirubin (0.2-1.3) mg/dL AST (14-36) U/L ALT (4-34) U/L Alkaline Phosphatase (38-126) U/L Total Protein (6.3-8.2) g/dL Albumin (3.5-5.0) g/dL 06/04/23 Range/Units 08:18 RBC (3.80-5.40) m/uL Hgb (11.4-16.0) gm/dL Hct (34.0-46.0) % MCV (80.0-100.0) fL RDW (11.5-15.5) % Plt Count (150-450) k/uL Macrocytosis Sodium 133 L (137-145) mmol/L BUN 62 H (7-17) mg/dL Creatinine 6.91 H (0.52-1.04) mg/dL Glucose 137 H (74-99) mg/dL POC Glucose (mg/dL) (70-110) mg/dL Calcium 8.3 L (8.4-10.2) mg/dL Total Bilirubin 3.9 H (0.2-1.3) mg/dL AST 137 H (14-36) U/L ALT 106 H (4-34) U/L Alkaline Phosphatase 505 H (38-126) U/L Total Protein 6.0 L (6.3-8.2) g/dL Albumin 2.6 L (3.5-5.0) g/dL
[2023-06-04 16:33] LABS: Glucose,Whole Blood 132 mg/dL (70-110)
[2023-06-04 20:22] LABS: Glucose,Whole Blood 146 mg/dL (70-110)
[2023-06-05 05:42] LABS: Glucose,Whole Blood 176 mg/dL (70-110)
[2023-06-05 05:58] LABS: ALT 84 U/L (4-34); AST 100 U/L (14-36); African American GFR (CKD) 9 (>60 ml/min/1.73 sqM); Albumin 2.4 g/dL (3.5-5.0); Albumin/Globulin Ratio 0.8; Alkaline Phosphatase 551 U/L (38-126); Anion Gap 10 mmol/L; Blood Urea Nitrogen 41 mg/dL (7-17); Carbon Dioxide 26 mmol/L (22-30); Chloride 97 mmol/L (98-107); Globulin 3.2 g/dL; Glucose 164 mg/dL (74-99); Non-African American GFR(CKD) 8 (>60 ml/min/1.73 sqM); Potassium 3.8 mmol/L (3.5-5.1); Sodium 133 mmol/L (137-145); Total Bilirubin 3.9 mg/dL (0.2-1.3); Total Protein 5.6 g/dL (6.3-8.2)
--- NOTE | 2023-06-05 06:16 | P.PN ---
Subjective Progress Note Date: 06/04/23 HISTORY OF PRESENT ILLNESS: 68-year-old female 89 office patient who was hospitalized recently at [facility] for abscess and infected armpit area with slight recurrent abdominal discomfort with gallbladder dyskinesia at the time. Patient has end-stage renal disease on hemodialysis 3 times a week also has known to have type 2 diabetes, obstructive sleep apnea, hypertension, hyperlipidemia, hypothyroidism, she brought to the emergency department because of intractable nausea vomiting and diarrhea could not complete dialysis yesterday with worsening fever and chills with abdominal distention without any significant chest pain no bloody stool. Also had infiltrate her fistula which the reason why here hemodialysis was stopped early. With her current symptoms and the significant abnormal liver function test from her last hospitalization which patient was study in detail and found to have biliary hypokinesia via HIDA scan done last month. Patient liver function test this time came back with total bilirubin of 1.9 with AST of 414 and ALT 154 with alkaline phosphatase 224 also lipase of 315 with amylase of 49 which make the diagnosis of subacute pancreatitis as well. Also she continued to have significant anemia with hemoglobin of 8.1 platelet count 1 65, 000 patient creatinine was 6.5 with BUN of 39. Patient was seen and evaluated at the emergency department with above complaint COVID influenza and RSV were negative, CT of the abdomen and pelvis was performed again this time and showed no bowel obstruction with no acute finding identified to the amount of patient's symptoms of the pancreas visualized to be fine with small but prominent calcification on the gallbladder as a gallstone with no surrounding ill-defined fluid and fat stranding. Gallbladder ultrasound was performed again as well and showed hepatomegaly with heterogeneous hyper echoic appearance of the liver suggestive of diffuse fatty infiltrate with hepatocellular disease with no adjacent ascites, gallstones redemonstrated without ultrasound evidence of acute cholecystitis. Patient was hospitalized and consult at this point gastroenterology for her recurrent symptoms with nausea and vomiting to conclude the possibility of gallbladder and gallstone with abnormal liver function test. And also to help to make decision whether her gallbladder should be removed or not. Cardiology consultation for cardiology clearance which patient has no history of cardiac disease no change on her EKG at this point or any change in cardiac enzymes. Nephrology consultation was requested to continue hemodialysis. Also request consult of vascular for her fistula. 06/03/2023: Patient was evaluated through the weekend by cardiology, general surgery, nephrology. Was continued on hemodialysis, also continue on IV antibiotic with Rocephin and Flagyl due to slight concern of leukocytosis. 3 did not have any increased nausea or vomiting no diarrhea, liver function test still slightly bit elevated. Cardiology evaluated patient ordered an echocardiogram and and furthermore decided to do a nuclear stress test before clearing her for surgery. Nuclear stress test scheduled this morning if patient goes through with no problem she will be going for her cholecystectomy as an extent. 06/04/2023: Laboratory values showed slight increase in alkaline phosphatase along with total bilirubin make the possibility of having obstruction of the common bile with stone or other is much higher. Delay patient discharge at this point and should go for an MRCP initially if there is any finding consistent with stone or blockage of the common duct she might need to go for an ERCP to extract stone and stent the area. Will delay discharge till this is done and cleared in the meanwhile repeat labs again tomorrow. Patient hemodialysis days today which we will continue to do as an inpatient. REVIEW OF SYSTEMS: CONSTITUTIONAL: Well-developed no acute respiratory distress. EYES: No icterus sclerae, no conjunctivitis. EARS, NOSE, MOUTH, THROAT, and FACE: No sore throat, lymphadenopathy, carotid bruits or deformity. RESPIRATORY: Slight shortness of breath no cough or wheezes.. CARDIOVASCULAR: Positive PND orthopnea palpitation no angina.. GASTROINTESTINAL: Positive abdominal pain with nausea vomiting diarrhea no constipation no acute gastrointestinal bleed no distention or masses.. GENITOURINARY: Decreased urine output she is on hemodialysis.. INTEGUMENT/BREAST: Negative for any muscular injury with mild osteoarthritis.. HEMATOLOGIC/LYMPHATIC: Chronic anemia and hematoma around the fistula graft.. MUSCULOSKELTAL: Negative for Myalgia or arthralgia. NEURLOGICAL: No LOC, Sz or syncope, blurred vision dizziness or abnormality.. BEHAVIORAL/PSYCH: Negative. ENDOCRINE: Negative. PHYSICAL EXAMINATION: General Appearance: Alert, cooperative, no distress, appears stated age. Neck HEENT: Supple, no lymphadenopathy, no thyroid enlargement, no carotid bruits. Lungs: Positive fine rhonchi in the bases with crackles mostly limited area on the right side no wheezes. Chest Wall: Decreased expansion with deep inspiration no tenderness and no deformity was found on exam, no costochondral pain or discomfort. Heart: Regular rate and rhythm, S1, S2 normal, no murmur, rub or gallop. Back: Symmetric, no curvature, ROM normal, no CVA tenderness. Abdomen: Soft with slight tenderness in the mid epigastric and right upper quadrant area no rebound or rigidity slight hepatomegaly not able to feel any splenomegaly at this point and very limited amount of ascites. Extremities: Trace edema, her fistula graft in the left side has slight hematoma on the side. Pulses: 2+ and symmetric. Skin: Skin color, texture, tugor normal, no rashes or lesions. Neurologic: Alert oriented x3 cranial nerves II through XII intact, no motor deficit, no abnormal balance or gait. ASSESSMENT AND PLAN: _Acute on subacute pancreatitis most likely from the effect of her gallbladder and gallstone post gallbladder surgery still watching for any recurrent signs and symptoms and any change on liver function test consistent with obstructive finding. _Gallstone without any acute cholecystitis: With the possibility of possible common duct stone passing black the pancreatic duct causing subacute pancreatitis patient will remain on antibiotic for treating this? Of ascending cholangitis till infection is clear out till the gallbladder is out. _Possible gallbladder dyskinesia: Will be going for HIDA scan there is possibility of some stone in the gallbladder, and at this stage with recurrent symptoms patient probably will need to go for cholecystectomy. _Elevated liver function test again following surgery: Specially alkaline phosphatase and total bilirubin which make the possibility of something blocking the common duct is very high patient be going for MRCP initially if any finding consistent with a problem might require to go for an ERCP to extract stone and put a stent in the common duct. _Cardiac clearance: From cardiac standpoint looks like patient will be going for nuclear stress test after echocardiogram for clearance if all negative patient be cleared for surgery. _End-stage renal disease: On hemodialysis 3 times a week resume dialysis. Resume dialysis continue phosphorus stabilizing medication and vitamin D. _Hypertension: Blood pressure remains well-controlled on Coreg 25 mg twice a day should be on smaller dose of losartan as well. _Hypothyroidism: Continue levothyroxine 225 mcg daily on Saturday the rest of the week is on 50 mcg. _Type 2 diabetes: Continue Humalog 22 units AC meals still on Lantus 23 units twice daily as well, continue Accu-Chek with sliding scale coverage. _Chronic anemia: Iron deficiency from end-stage renal disease continue to watch hemoglobin and iron level continue Procrit. Planning: I will depend on the finding of her MRCP and repeat liver function test might be able to go home tomorrow or the following day. Objective - Vital Signs Vital signs: Vital Signs Temp 97.8 F 06/04/23 04:00 Pulse 48 L 06/04/23 04:00 Resp 16 06/04/23 04:00 BP 116/67 06/04/23 04:00 Pulse Ox 98 06/04/23 04:00 FiO2 Intake & Output 06/03/23 06/03/23 06/04/23 06:59 18:59 06:59 Intake Total 120 460 340 Output Total 5 Balance 120 455 340 Weight 139.2 kg Intake: IV 310 Intake, IV Titration 150 220 Amount Lactated Ringers 1,000 ml 120 @ 20 mls/hr IV .Q24H [facility] Rx#:[id number] cefTRIAXone 2 gm In 50 Sodium Chloride 0.9% 50 ml @ 100 mls/hr IVPB Q24HR [facility] Rx#:[id number] metroNIDAZOLE-NS PMX 500 100 100 mg In Saline 1 100ml.bag @ 100 mls/hr IVPB Q8HR [facility] Rx#:[id number] Oral 120 120 Output: Estimated Blood Loss 5 Other: Voiding Method Toilet Toilet Toilet # Voids 0 - Labs CBC & Chem 7: 06/04/23 08:18 06/05/23 05:17 Labs: Abnormal Lab Results - Last 24 Hours (Table) 06/03/23 06/03/23 06/03/23 Range/Units 06:47 06:47 20:03 RBC 2.56 L (3.80-5.40) m/uL Hgb 8.7 L (11.4-16.0) gm/dL Hct 26.6 L (34.0-46.0) % MCV 103.7 H (80.0-100.0) fL RDW 16.4 H (11.5-15.5) % Plt Count 127 L (150-450) k/uL Sodium 134 L (137-145) mmol/L BUN 50 H (7-17) mg/dL Creatinine 5.63 H (0.52-1.04) mg/dL POC Glucose (mg/dL) 125 H (70-110) mg/dL Calcium 8.3 L (8.4-10.2) mg/dL Total Bilirubin 2.8 H (0.2-1.3) mg/dL AST 156 H (14-36) U/L ALT 139 H (4-34) U/L Alkaline Phosphatase 445 H (38-126) U/L Total Protein 6.0 L (6.3-8.2) g/dL Albumin 2.7 L (3.5-5.0) g/dL
[2023-06-05 11:32] LABS: Glucose,Whole Blood 183 mg/dL (70-110)
--- NOTE | 2023-06-05 15:26 | P.PN ---
Subjective Progress Note Date: 06/05/23 CHIEF COMPLAINT: Cholecystitis HISTORY OF PRESENT ILLNESS: Patient postop day #2 status post laparoscopic cholecystectomy. Patient denies abdominal pain. Denies any nausea or vomiting. Patient MRCP completed today. Results are pending. Total bilirubin has remained the same at 3.9 her AST and ALT are trending down alk phos has remained essentially the same in the 500s. Afebrile. PHYSICAL EXAM: VITAL SIGNS: Reviewed. GENERAL: Well-developed in no acute distress. ABDOMEN: Soft. Nondistended. Incision sites clean dry and intact NEUROLOGIC: Alert and oriented. Cranial nerves II through XII grossly intact. ASSESSMENT: 1. Cholecystitis status post laparoscopic cholecystectomy 2. Elevated LFTs with increase in total bilirubin and alk phos. Concerns for possible retained stone PLAN: -Will defer to GI service for possible ERCP. Repeat LFTs in AM -Continue antibiotics -Continue Renal diet Physician [employer] note has been reviewed by physician. Signing provider agrees with the documented findings, assessment, and plan of care. Objective - Vital Signs Vital signs: Vital Signs Temp 98.3 F 06/05/23 07:38 Pulse 114 H 06/05/23 11:45 Resp 17 06/05/23 07:38 BP 109/71 06/05/23 11:45 Pulse Ox 98 06/05/23 07:38 FiO2 Intake & Output 06/04/23 06/05/23 06/05/23 18:59 06:59 18:59 Intake Total 2236 Output Total 1100 Balance 1136 Weight 96 kg Intake: Intake, IV Titration 100 Amount metroNIDAZOLE-NS PMX 500 100 mg In Saline 1 100ml.bag @ 100 mls/hr IVPB Q8HR [facility] Rx#:[id number] Oral 236 Hemodialysis 1900 Output: Hemodialysis 1100 Other: Voiding Method Toilet Toilet Toilet # Voids 0 1 - Labs CBC & Chem 7: 06/04/23 08:18 06/05/23 05:17 Labs: Abnormal Lab Results - Last 24 Hours (Table) 06/04/23 06/04/23 06/05/23 Range/Units 16:31 20:20 05:17 Sodium 133 L (137-145) mmol/L Chloride 97 L (98-107) mmol/L BUN 41 H (7-17) mg/dL Creatinine 5.34 H (0.52-1.04) mg/dL Glucose 164 H (74-99) mg/dL POC Glucose (mg/dL) 132 H 146 H (70-110) mg/dL Calcium 8.0 L (8.4-10.2) mg/dL Total Bilirubin 3.9 H (0.2-1.3) mg/dL AST 100 H (14-36) U/L ALT 84 H (4-34) U/L Alkaline Phosphatase 551 H (38-126) U/L Total Protein 5.6 L (6.3-8.2) g/dL Albumin 2.4 L (3.5-5.0) g/dL 06/05/23 06/05/23 Range/Units 05:41 11:30 Sodium (137-145) mmol/L Chloride (98-107) mmol/L BUN (7-17) mg/dL Creatinine (0.52-1.04) mg/dL Glucose (74-99) mg/dL POC Glucose (mg/dL) 176 H 183 H (70-110) mg/dL Calcium (8.4-10.2) mg/dL Total Bilirubin (0.2-1.3) mg/dL AST (14-36) U/L ALT (4-34) U/L Alkaline Phosphatase (38-126) U/L Total Protein (6.3-8.2) g/dL Albumin (3.5-5.0) g/dL
--- NOTE | 2023-06-05 16:31 | P.PN ---
Subjective Progress Note Date: 06/05/23 Principal diagnosis: Transaminitis This is a pleasant 68-year-old female with a history of end-stage renal disease on hemodialysis, congestive heart failure, obesity, hyperlipidemia, and diabetes mellitus who presented to the emergency department with complaints of nausea, vomiting and diarrhea. Apparently yesterday she went for hemodialysis and they infiltrated her fistula she was unable to get hemodialysis and presented to the emergency department. She was noted to have elevated LFTs but apparently may have some history with her gallbladder and was recently worked up with gallbladder ultrasound and HIDA scan done in April 2023. HIDA scan reported biliary hypokinesia. No obstruction identified. She denies any the abdominal pain, still has some nausea but has not vomited recently. CT abdomen and pelvis with no acute findings. Gallbladder ultrasound reports hepatomegaly redemonstrated. Heterogeneous hyperechoic appearance of the liver suggesting diffuse fatty infiltrative hepatocellular disease. No adjacent ascites. Gallstones redemonstrated without ultrasound evidence for acute cholecystitis. She had a low-grade temp of 100.0 on admission. Labs WBC 4.0 hemoglobin 8.1 hematocrit 23 platelet count 165,000 INR 1.0 sodium 141 potassium 3.4 BUN 39 creatinine 6.5 total bilirubin 1.9 AST 414 ALT 154 alkaline phosphatase 224 amylase 49 lipase 315 06/03/2023 Patient is scheduled to undergo cholecystectomy today. She is down for Lexiscan stress test. Cardiology hands ended up clearing patient to undergo cholecystectomy. Patient is to go this afternoon. She denies any abdominal pain, no nausea or vomiting. She continues to have elevated LFTs total bilirubin 2.8 AST 156 ALT 139 alkaline phosphatase 445 06/04/2023 Patient seen and examined today as a follow-up. Yesterday she underwent laparoscopic cholecystectomy. She states she does have some surgical discomfort but no nausea or vomiting. No epigastric or right upper quadrant pain. She is about to undergo hemodialysis. She is tentatively been discharged by her primary care physician pending clearance from general surgery and infectious disease. Patient has been afebrile. LFTs continue to remain elevated, today's labs total bilirubin 3.9 AST 137 ALT 106 alkaline phosphatase 505. 06/05/2023 Patient seen and examined today as a follow-up. She is sitting up in bed. Denies any abdominal pain, nausea or vomiting. She is status post laparoscopic cholecystectomy. Today's repeat LFTs no significant change. Total bilirubin remains at 3.9 AST slightly improved at 100 as well as ALT at 84 alkaline phosphatase 551. Patient underwent MRCP, results currently pending. Objective - Vital Signs Vital signs: Vital Signs Temp 98.3 F 06/05/23 07:38 Pulse 98 06/05/23 07:38 Resp 17 06/05/23 07:38 BP 102/58 06/05/23 07:38 Pulse Ox 98 06/05/23 07:38 FiO2 Intake & Output 06/04/23 06/05/23 06/05/23 18:59 06:59 18:59 Intake Total 2236 Output Total 1100 Balance 1136 Weight 96 kg Intake: Intake, IV Titration 100 Amount metroNIDAZOLE-NS PMX 500 100 mg In Saline 1 100ml.bag @ 100 mls/hr IVPB Q8HR [facility] Rx#:[id number] Oral 236 Hemodialysis 1900 Output: Hemodialysis 1100 Other: Voiding Method Toilet Toilet # Voids 0 1 - Exam General appearance: The patient is alert, oriented, appears in no acute distress. HET: Head is normocephalic and atraumatic. Conjunctiva pink. Sclera anicteric. Neck: Supple without lymphadenopathy. Abdomen: Soft, no epigastric or right upper quadrant tenderness, surgical incision tenderness, obese, nondistended. Extremities: Normal skin color and turgor. No pedal edema Skin: No rashes, jaundice. Neurological: No focal deficits. Alert and oriented. - Labs CBC & Chem 7: 06/04/23 08:18 06/05/23 05:17 Labs: Abnormal Lab Results - Last 24 Hours (Table) 06/04/23 06/04/23 06/04/23 Range/Units 08:18 08:18 16:31 RBC 2.61 L (3.80-5.40) m/uL Hgb 9.0 L (11.4-16.0) gm/dL Hct 27.9 L (34.0-46.0) % MCV 106.9 H (80.0-100.0) fL RDW 16.3 H (11.5-15.5) % Plt Count 116 L (150-450) k/uL Macrocytosis Marked A Sodium 133 L (137-145) mmol/L Chloride (98-107) mmol/L BUN 62 H (7-17) mg/dL Creatinine 6.91 H (0.52-1.04) mg/dL Glucose 137 H (74-99) mg/dL POC Glucose (mg/dL) 132 H (70-110) mg/dL Calcium 8.3 L (8.4-10.2) mg/dL Total Bilirubin 3.9 H (0.2-1.3) mg/dL AST 137 H (14-36) U/L ALT 106 H (4-34) U/L Alkaline Phosphatase 505 H (38-126) U/L Total Protein 6.0 L (6.3-8.2) g/dL Albumin 2.6 L (3.5-5.0) g/dL 06/04/23 06/05/23 06/05/23 Range/Units 20:20 05:17 05:41 RBC (3.80-5.40) m/uL Hgb (11.4-16.0) gm/dL Hct (34.0-46.0) % MCV (80.0-100.0) fL RDW (11.5-15.5) % Plt Count (150-450) k/uL Macrocytosis Sodium 133 L (137-145) mmol/L Chloride 97 L (98-107) mmol/L BUN 41 H (7-17) mg/dL Creatinine 5.34 H (0.52-1.04) mg/dL Glucose 164 H (74-99) mg/dL POC Glucose (mg/dL) 146 H 176 H (70-110) mg/dL Calcium 8.0 L (8.4-10.2) mg/dL Total Bilirubin 3.9 H (0.2-1.3) mg/dL AST 100 H (14-36) U/L ALT 84 H (4-34) U/L Alkaline Phosphatase 551 H (38-126) U/L Total Protein 5.6 L (6.3-8.2) g/dL Albumin 2.4 L (3.5-5.0) g/dL Assessment and Plan (1) Nausea and vomiting Narrative/Plan: 68-year-old female presenting with nausea and vomiting. Patient is a hemodialysis patient who was supposed to get hemodialysis yesterday however after 30 minutes her fistula infiltrated. She came in and presented with nausea and vomiting, fluid overload. Was noted to have elevated liver enzymes as well. Patient does have a history of elevated liver enzymes in the past. She has a history of hepatocellular disease as noted on CT abdomen pelvis and previous imaging. Likely secondary to diabetes mellitus and hepatic steatosis. Gallbladder ultrasound does show some gallstones without any CBD dilation. CT abdomen pelvis with no acute findings. Will treat symptomatically for nausea and vomiting and can trend LFTs. Will also consult general surgery for cholelithiasis, elevated liver enzymes and history of biliary hyperkinesia seen on recent HIDA scan done on 05/13/2023. Current Visit: Yes Status: Acute Code(s): R11.2 - NAUSEA WITH VOMITING, UNSPECIFIED SNOMED Code(s): 73388869 (2) Elevated liver enzymes Narrative/Plan: possibly superimposed from underlying hepatocellular disease from diabetes mellitus and hepatic steatosis, however need to consider a cholestatic pattern from possible choledocholithiasis as they have continued to trend up. Patient is scheduled for laparoscopic cholecystectomy today with general surgery. Current Visit: No Status: Acute Code(s): R74.8 - ABNORMAL LEVELS OF OTHER SERUM ENZYMES SNOMED Code(s): 746863181 (3) End stage renal disease Narrative/Plan: Patient end-stage renal disease on hemodialysis. Continue with recommendations from nephrology Current Visit: No Status: Acute Code(s): N18.6 - END STAGE RENAL DISEASE SNOMED Code(s): 94644648 Plan: 1. Continue symptomatic and supportive care 2. Patient is postop day #2 for laparoscopic cholecystectomy 3. Daily CMP 4. Diet per general surgery recommendations 5. Encourage ambulation 6. MRCP pending, further recommendations forthcoming based on findings. Thank you for this consultation, we will continue to follow. Dr. Mili Poe I agree with the dictator's note, documented as a scribe by Radha Melton.
[2023-06-05 16:54] LABS: Glucose,Whole Blood 111 mg/dL (70-110)
[2023-06-05 18:18] LABS: Glucose,Whole Blood 119 mg/dL (70-110)
[2023-06-05 20:27] LABS: Glucose,Whole Blood 144 mg/dL (70-110)
--- NOTE | 2023-06-05 21:10 | MR ---
EXAMINATION TYPE: MR MRCP DATE OF EXAM: 06/05/2023 11:34 AM CLINICAL INDICATION:Female, 68 years old with history of possible choledocholithiasis, worsening tota l bili; [facility], COMPARISON: 05/30/2023 TECHNIQUE: Multi planar, T2-weighted imaging with and without fat saturation and chemical shift imag ing was performed of the abdomen. Then, heavily T2 weighted imaging (half-Fourier acquisition single- shot turbo spin-echo) was utilized in order to study the biliary system. Maximum intensity projectio n images were reconstructed from the original data of the biliary tree. 3D images were created on [employer] work station. No Gadolinium given. FINDINGS: Limited exam secondary to patient body habitus. Lower Thorax: Trace bilateral pleural effusions are visualized. MRCP: The visualized intrahepatic ducts are within normal limits. The gallbladder is dilated and poorly vis ualized. The Visualized extrahepatic bile ducts are not well visualized due to patient's body habitus . No obvious dilated extra hepatic ductal dilation. The main pancreatic duct and pancreas are poorly visualized due to technique. Multiple calcified stones are seen in the common bile duct on prior CT on 05/30/2023. Abdomen: Liver: Unremarkable. Pancreas: Unremarkable. Spleen: Unremarkable. Adrenal glands: Unremarkable. Kidneys: Unremarkable. Stomach and Bowel: Unremarkable as visualized. Peritoneum: No evidence of pneumoperitoneum or free fluid. Vasculature: Unremarkable. No aortic aneurysm. Musculoskeletal: The osseous structures appear intact. Lymph Nodes: No gross evidence for lymphadenopathy. Abdominal wall: Unremarkable. IMPRESSION: Limited exam secondary to patient body habitus. Evaluation of the biliary tree is extremely limited. 1. On CT imaging from 05/30/2023 there are multiple small calcifications in the common bile duct comp atible with choledocholithiasis. 2. Cholelithiasis. 3. Trace bilateral pleural effusions.
[2023-06-06 05:32] LABS: Glucose,Whole Blood 187 mg/dL (70-110)
--- NOTE | 2023-06-06 06:22 | P.PN ---
Subjective Progress Note Date: 06/05/23 HISTORY OF PRESENT ILLNESS: 68-year-old female 89 office patient who was hospitalized recently at [facility] for abscess and infected armpit area with slight recurrent abdominal discomfort with gallbladder dyskinesia at the time. Patient has end-stage renal disease on hemodialysis 3 times a week also has known to have type 2 diabetes, obstructive sleep apnea, hypertension, hyperlipidemia, hypothyroidism, she brought to the emergency department because of intractable nausea vomiting and diarrhea could not complete dialysis yesterday with worsening fever and chills with abdominal distention without any significant chest pain no bloody stool. Also had infiltrate her fistula which the reason why here hemodialysis was stopped early. With her current symptoms and the significant abnormal liver function test from her last hospitalization which patient was study in detail and found to have biliary hypokinesia via HIDA scan done last month. Patient liver function test this time came back with total bilirubin of 1.9 with AST of 414 and ALT 154 with alkaline phosphatase 224 also lipase of 315 with amylase of 49 which make the diagnosis of subacute pancreatitis as well. Also she continued to have significant anemia with hemoglobin of 8.1 platelet count 1 65, 000 patient creatinine was 6.5 with BUN of 39. Patient was seen and evaluated at the emergency department with above complaint COVID influenza and RSV were negative, CT of the abdomen and pelvis was performed again this time and showed no bowel obstruction with no acute finding identified to the amount of patient's symptoms of the pancreas visualized to be fine with small but prominent calcification on the gallbladder as a gallstone with no surrounding ill-defined fluid and fat stranding. Gallbladder ultrasound was performed again as well and showed hepatomegaly with heterogeneous hyper echoic appearance of the liver suggestive of diffuse fatty infiltrate with hepatocellular disease with no adjacent ascites, gallstones redemonstrated without ultrasound evidence of acute cholecystitis. Patient was hospitalized and consult at this point gastroenterology for her recurrent symptoms with nausea and vomiting to conclude the possibility of gallbladder and gallstone with abnormal liver function test. And also to help to make decision whether her gallbladder should be removed or not. Cardiology consultation for cardiology clearance which patient has no history of cardiac disease no change on her EKG at this point or any change in cardiac enzymes. Nephrology consultation was requested to continue hemodialysis. Also request consult of vascular for her fistula. 06/03/2023: Patient was evaluated through the weekend by cardiology, general surgery, nephrology. Was continued on hemodialysis, also continue on IV antibiotic with Rocephin and Flagyl due to slight concern of leukocytosis. 3 did not have any increased nausea or vomiting no diarrhea, liver function test still slightly bit elevated. Cardiology evaluated patient ordered an echocardiogram and and furthermore decided to do a nuclear stress test before clearing her for surgery. Nuclear stress test scheduled this morning if patient goes through with no problem she will be going for her cholecystectomy as an extent. 06/04/2023: Laboratory values showed slight increase in alkaline phosphatase along with total bilirubin make the possibility of having obstruction of the common bile with stone or other is much higher. Delay patient discharge at this point and should go for an MRCP initially if there is any finding consistent with stone or blockage of the common duct she might need to go for an ERCP to extract stone and stent the area. Will delay discharge till this is done and cleared in the meanwhile repeat labs again tomorrow. Patient hemodialysis days today which we will continue to do as an inpatient. 06/05/2023: Patient MRCP came back with several area of calcification in the common duct consistent with cholelithiasis. Patient will be seen gastroenterology for ERCP probably to extract the stone and probably do stent in the common duct. REVIEW OF SYSTEMS: CONSTITUTIONAL: Well-developed no acute respiratory distress. EYES: No icterus sclerae, no conjunctivitis. EARS, NOSE, MOUTH, THROAT, and FACE: No sore throat, lymphadenopathy, carotid bruits or deformity. RESPIRATORY: Slight shortness of breath no cough or wheezes.. CARDIOVASCULAR: Positive PND orthopnea palpitation no angina.. GASTROINTESTINAL: Positive abdominal pain with nausea vomiting diarrhea no constipation no acute gastrointestinal bleed no distention or masses.. GENITOURINARY: Decreased urine output she is on hemodialysis.. INTEGUMENT/BREAST: Negative for any muscular injury with mild osteoarthritis.. HEMATOLOGIC/LYMPHATIC: Chronic anemia and hematoma around the fistula graft.. MUSCULOSKELTAL: Negative for Myalgia or arthralgia. NEURLOGICAL: No LOC, Sz or syncope, blurred vision dizziness or abnormality.. BEHAVIORAL/PSYCH: Negative. ENDOCRINE: Negative. PHYSICAL EXAMINATION: General Appearance: Alert, cooperative, no distress, appears stated age. Neck HEENT: Supple, no lymphadenopathy, no thyroid enlargement, no carotid bruits. Lungs: Positive fine rhonchi in the bases with crackles mostly limited area on the right side no wheezes. Chest Wall: Decreased expansion with deep inspiration no tenderness and no deformity was found on exam, no costochondral pain or discomfort. Heart: Regular rate and rhythm, S1, S2 normal, no murmur, rub or gallop. Back: Symmetric, no curvature, ROM normal, no CVA tenderness. Abdomen: Soft with slight tenderness in the mid epigastric and right upper quadrant area no rebound or rigidity slight hepatomegaly not able to feel any splenomegaly at this point and very limited amount of ascites. Extremities: Trace edema, her fistula graft in the left side has slight hematoma on the side. Pulses: 2+ and symmetric. Skin: Skin color, texture, tugor normal, no rashes or lesions. Neurologic: Alert oriented x3 cranial nerves II through XII intact, no motor deficit, no abnormal balance or gait. ASSESSMENT AND PLAN: _Acute on subacute pancreatitis most likely from the effect of her gallbladder and gallstone post gallbladder surgery still watching for any recurrent signs and symptoms and any change on liver function test consistent with obstructive finding. _Gallstone without any acute cholecystitis: With the possibility of possible common duct stone passing black the pancreatic duct causing subacute pancreatitis patient will remain on antibiotic for treating this? Of ascending cholangitis till infection is clear out till the gallbladder is out. _Possible gallbladder dyskinesia: Will be going for HIDA scan there is possibility of some stone in the gallbladder, and at this stage with recurrent symptoms patient probably will need to go for cholecystectomy. _Elevated liver function test again following surgery: Specially alkaline phosphatase and total bilirubin which make the possibility of something blocking the common duct is very high patient be going for MRCP initially if any finding consistent with a problem might require to go for an ERCP to extract stone and put a stent in the common duct. _ Common duct stone: Positive MRCP at this point patient required to go for an ERCP probably with extraction of stone. Consult gastroenterology keep patient n.p.o. for possible doing this tomorrow. _Cardiac clearance: From cardiac standpoint looks like patient will be going for nuclear stress test after echocardiogram for clearance if all negative patient be cleared for surgery. _End-stage renal disease: On hemodialysis 3 times a week resume dialysis. Resume dialysis continue phosphorus stabilizing medication and vitamin D. _Hypertension: Blood pressure remains well-controlled on Coreg 25 mg twice a day should be on smaller dose of losartan as well. _Hypothyroidism: Continue levothyroxine 225 mcg daily on Saturday the rest of the week is on 50 mcg. _Type 2 diabetes: Continue Humalog 22 units AC meals still on Lantus 23 units twice daily as well, continue Accu-Chek with sliding scale coverage. _Chronic anemia: Iron deficiency from end-stage renal disease continue to watch hemoglobin and iron level continue Procrit. Planning: Her MRCP is positive patient hopefully will move on into doing an ERCP with stone extraction and stent. Objective - Vital Signs Vital signs: Vital Signs Temp 98.0 F 06/05/23 01:01 Pulse 72 06/05/23 01:01 Resp 18 06/05/23 01:01 BP 91/54 06/05/23 02:18 Pulse Ox 100 06/05/23 01:01 FiO2 Intake & Output 06/04/23 06/04/23 06/05/23 06:59 18:59 06:59 Intake Total 340 2236 Output Total 1100 Balance 340 1136 Weight 140.7 kg 96 kg Intake: Intake, IV Titration 220 100 Amount Lactated Ringers 1,000 ml 120 @ 20 mls/hr IV .Q24H [facility] Rx#:[id number] metroNIDAZOLE-NS PMX 500 100 100 mg In Saline 1 100ml.bag @ 100 mls/hr IVPB Q8HR [facility] Rx#:[id number] Oral 120 236 Hemodialysis 1900 Output: Hemodialysis 1100 Other: Voiding Method Toilet Toilet Toilet # Voids 0 1 - Labs CBC & Chem 7: 06/04/23 08:18 06/05/23 05:17 Labs: Abnormal Lab Results - Last 24 Hours (Table) 06/04/23 06/04/23 06/04/23 Range/Units 06:59 08:18 08:18 RBC 2.61 L (3.80-5.40) m/uL Hgb 9.0 L (11.4-16.0) gm/dL Hct 27.9 L (34.0-46.0) % MCV 106.9 H (80.0-100.0) fL RDW 16.3 H (11.5-15.5) % Plt Count 116 L (150-450) k/uL Macrocytosis Marked A Sodium 133 L (137-145) mmol/L Chloride (98-107) mmol/L BUN 62 H (7-17) mg/dL Creatinine 6.91 H (0.52-1.04) mg/dL Glucose 137 H (74-99) mg/dL POC Glucose (mg/dL) 141 H (70-110) mg/dL Calcium 8.3 L (8.4-10.2) mg/dL Total Bilirubin 3.9 H (0.2-1.3) mg/dL AST 137 H (14-36) U/L ALT 106 H (4-34) U/L Alkaline Phosphatase 505 H (38-126) U/L Total Protein 6.0 L (6.3-8.2) g/dL Albumin 2.6 L (3.5-5.0) g/dL 06/04/23 06/04/23 06/05/23 Range/Units 16:31 20:20 05:17 RBC (3.80-5.40) m/uL Hgb (11.4-16.0) gm/dL Hct (34.0-46.0) % MCV (80.0-100.0) fL RDW (11.5-15.5) % Plt Count (150-450) k/uL Macrocytosis Sodium 133 L (137-145) mmol/L Chloride 97 L (98-107) mmol/L BUN 41 H (7-17) mg/dL Creatinine 5.34 H (0.52-1.04) mg/dL Glucose 164 H (74-99) mg/dL POC Glucose (mg/dL) 132 H 146 H (70-110) mg/dL Calcium 8.0 L (8.4-10.2) mg/dL Total Bilirubin 3.9 H (0.2-1.3) mg/dL AST 100 H (14-36) U/L ALT 84 H (4-34) U/L Alkaline Phosphatase 551 H (38-126) U/L Total Protein 5.6 L (6.3-8.2) g/dL Albumin 2.4 L (3.5-5.0) g/dL 06/05/23 Range/Units 05:41 RBC (3.80-5.40) m/uL Hgb (11.4-16.0) gm/dL Hct (34.0-46.0) % MCV (80.0-100.0) fL RDW (11.5-15.5) % Plt Count (150-450) k/uL Macrocytosis Sodium (137-145) mmol/L Chloride (98-107) mmol/L BUN (7-17) mg/dL Creatinine (0.52-1.04) mg/dL Glucose (74-99) mg/dL POC Glucose (mg/dL) 176 H (70-110) mg/dL Calcium (8.4-10.2) mg/dL Total Bilirubin (0.2-1.3) mg/dL AST (14-36) U/L ALT (4-34) U/L Alkaline Phosphatase (38-126) U/L Total Protein (6.3-8.2) g/dL Albumin (3.5-5.0) g/dL
[2023-06-06] MEDS: ENOXAPARIN 30 MG/0.3 ML SYRINGE SQ SCH (08:30)
--- NOTE | 2023-06-06 10:21 | P.PN ---
Subjective Patient is seen for follow-up for end-stage renal disease. Status post laparoscopic cholecystectomy on 06/03/2023. Scheduled for hemodialysis today Objective - Vital Signs Vital signs: Vital Signs Temp 97.5 F L 06/06/23 08:00 Pulse 55 L 06/06/23 08:00 Resp 17 06/06/23 08:00 BP 124/67 06/06/23 08:00 Pulse Ox 94 L 06/06/23 08:13 FiO2 Intake & Output 06/05/23 06/06/23 06/06/23 18:59 06:59 18:59 Other: Voiding Method Toilet # Voids 1 0 - Exam Patient is awake, comfortable, in no acute distress Examination of the heart S1 and S2 Examination of the lungs bilateral breath sounds are heard Abdomen is soft, mildly tender Examination of lower extremities shows no significant edema [employer] exam grossly intact - Labs CBC & Chem 7: 06/04/23 08:18 06/05/23 05:17 Labs: Abnormal Lab Results - Last 24 Hours (Table) 06/05/23 06/05/23 06/05/23 Range/Units 11:30 16:53 18:17 POC Glucose (mg/dL) 183 H 111 H 119 H (70-110) mg/dL 06/05/23 06/06/23 Range/Units 20:26 05:30 POC Glucose (mg/dL) 144 H 187 H (70-110) mg/dL Assessment and Plan Assessment: 1. End-stage renal disease maintained on hemodialysis on Saturday schedule via AV graft. 2. Infiltrated AV graft. Vascular surgery consulted. AV graft is currently functioning 3. Nausea and vomiting. CT showed no acute process. Status post laparoscopic cholecystectomy 06/03/2023 for cholecystitis with cholelithiasis. Concern for retained stone, status post MRCP and plans for ERCP. 4. Mild volume overload. 5. Hypotension maintained on midodrine. 6. Diabetes mellitus. 7. Chronic kidney disease mineral bone disease maintained on Renvela. 8. Anemia of chronic kidney disease. Plan: Hemodialysis today with no significant ultrafiltration
[2023-06-06 11:20] LABS: Glucose,Whole Blood 113 mg/dL (70-110)
[2023-06-06 11:44] LABS: ALT 62 U/L (8-44); AST 59 U/L (13-35); Albumin 2.4 g/dL (3.8-4.9); Albumin/Globulin Ratio 0.77 Ratio (1.60-3.17); Alkaline Phosphatase 541 U/L (41-126); Blood Urea Nitrogen 46.9 mg/dL (9.0-27.0); Calcium 8.6 mg/dL (8.7-10.3); Carbon Dioxide 24.9 mmol/L (21.6-31.8); Chloride 94 mmol/L (96-109); Globulin 3.1 g/dL (1.6-3.3); Glucose 185 mg/dL (70-110); Potassium 4.1 mmol/L (3.5-5.5); Sodium 133 mmol/L (135-145); Total Bilirubin 2.8 mg/dL (0.3-1.2); Total Protein 5.5 g/dL (6.2-8.2)
[2023-06-06 12:26] LABS: INR 1.11 sec (0.93-1.11); Prothrombin Time 11.9 sec (9.9-11.9)
--- NOTE | 2023-06-06 12:51 | P.PN ---
Subjective Progress Note Date: 06/06/23 CHIEF COMPLAINT: Cholecystitis HISTORY OF PRESENT ILLNESS: Patient postop day #3 status post laparoscopic cholecystectomy. Patient denies abdominal pain. Denies any nausea or vomiting. MRCP reported Limited exam secondary to patient's body habitus. On CT scan imaging from 05/30/2023 there are multiple small calcifications in the common bile duct compatible with choledocholithiasis. Trace bilateral pleural effusions. Afebrile. Total bilirubin 3.9 down to 2.8 AST down from 159 ALT 84 down to 62 alk phos 551 down to 541 PHYSICAL EXAM: VITAL SIGNS: Reviewed. GENERAL: Well-developed in no acute distress. ABDOMEN: Soft. Nondistended. Incision sites clean dry and intact NEUROLOGIC: Alert and oriented. Cranial nerves II through XII grossly intact. ASSESSMENT: 1. Cholecystitis status post laparoscopic cholecystectomy 2. Choledocholithiasis noted on MRCP PLAN: -Patient scheduled for ERCP tomorrow with GI service -Continue antibiotics -Continue Renal diet Physician Vinyl Cutter note has been reviewed by physician. Signing provider agrees with the documented findings, assessment, and plan of care. Objective - Vital Signs Vital signs: Vital Signs Temp 97.5 F L 06/06/23 08:00 Pulse 50 L 06/06/23 11:41 Resp 17 06/06/23 08:00 BP 125/67 06/06/23 11:41 Pulse Ox 94 L 06/06/23 08:13 FiO2 Intake & Output 06/05/23 06/06/23 06/06/23 18:59 06:59 18:59 Other: Voiding Method Toilet # Voids 1 0 - Labs CBC & Chem 7: 06/04/23 08:18 06/06/23 06:47 Labs: Abnormal Lab Results - Last 24 Hours (Table) 06/05/23 06/05/23 06/05/23 Range/Units 16:53 18:17 20:26 Sodium (135-145) mmol/L Chloride (96-109) mmol/L Anion Gap (4.00-12.00) mmol/L BUN (9.0-27.0) mg/dL Creatinine (0.6-1.5) mg/dL Est GFR (CKD-EPI) (>=60) BUN/Creatinine Ratio (12.00-20.00) Ratio Glucose (70-110) mg/dL POC Glucose (mg/dL) 111 H 119 H 144 H (70-110) mg/dL Calcium (8.7-10.3) mg/dL Total Bilirubin (0.3-1.2) mg/dL AST (13-35) U/L ALT (8-44) U/L Alkaline Phosphatase (41-126) U/L Total Protein (6.2-8.2) g/dL Albumin (3.8-4.9) g/dL Albumin/Globulin Ratio (1.60-3.17) Ratio 06/06/23 06/06/23 06/06/23 Range/Units 05:30 06:47 11:18 Sodium 133 L (135-145) mmol/L Chloride 94 L (96-109) mmol/L Anion Gap 14.10 H (4.00-12.00) mmol/L BUN 46.9 H (9.0-27.0) mg/dL Creatinine 6.8 H (0.6-1.5) mg/dL Est GFR (CKD-EPI) 6 L (>=60) BUN/Creatinine Ratio 6.90 L (12.00-20.00) Ratio Glucose 185 H (70-110) mg/dL POC Glucose (mg/dL) 187 H 113 H (70-110) mg/dL Calcium 8.6 L (8.7-10.3) mg/dL Total Bilirubin 2.8 H (0.3-1.2) mg/dL AST 59 H (13-35) U/L ALT 62 H (8-44) U/L Alkaline Phosphatase 541 H (41-126) U/L Total Protein 5.5 L (6.2-8.2) g/dL Albumin 2.4 L (3.8-4.9) g/dL Albumin/Globulin Ratio 0.77 L (1.60-3.17) Ratio
--- NOTE | 2023-06-06 15:27 | P.PN ---
Subjective Progress Note Date: 06/06/23 Principal diagnosis: Transaminitis This is a pleasant 68-year-old female with a history of end-stage renal disease on hemodialysis, congestive heart failure, obesity, hyperlipidemia, and diabetes mellitus who presented to the emergency department with complaints of nausea, vomiting and diarrhea. Apparently yesterday she went for hemodialysis and they infiltrated her fistula she was unable to get hemodialysis and presented to the emergency department. She was noted to have elevated LFTs but apparently may have some history with her gallbladder and was recently worked up with gallbladder ultrasound and HIDA scan done in April 2023. HIDA scan reported biliary hypokinesia. No obstruction identified. She denies any the abdominal pain, still has some nausea but has not vomited recently. CT abdomen and pelvis with no acute findings. Gallbladder ultrasound reports hepatomegaly redemonstrated. Heterogeneous hyperechoic appearance of the liver suggesting diffuse fatty infiltrative hepatocellular disease. No adjacent ascites. Gallstones redemonstrated without ultrasound evidence for acute cholecystitis. She had a low-grade temp of 100.0 on admission. Labs WBC 4.0 hemoglobin 8.1 hematocrit 23 platelet count 165,000 INR 1.0 sodium 141 potassium 3.4 BUN 39 creatinine 6.5 total bilirubin 1.9 AST 414 ALT 154 alkaline phosphatase 224 amylase 49 lipase 315 06/03/2023 Patient is scheduled to undergo cholecystectomy today. She is down for Lexiscan stress test. Cardiology hands ended up clearing patient to undergo cholecystectomy. Patient is to go this afternoon. She denies any abdominal pain, no nausea or vomiting. She continues to have elevated LFTs total bilirubin 2.8 AST 156 ALT 139 alkaline phosphatase 445 06/04/2023 Patient seen and examined today as a follow-up. Yesterday she underwent laparoscopic cholecystectomy. She states she does have some surgical discomfort but no nausea or vomiting. No epigastric or right upper quadrant pain. She is about to undergo hemodialysis. She is tentatively been discharged by her primary care physician pending clearance from general surgery and infectious disease. Patient has been afebrile. LFTs continue to remain elevated, today's labs total bilirubin 3.9 AST 137 ALT 106 alkaline phosphatase 505. 06/05/2023 Patient seen and examined today as a follow-up. She is sitting up in bed. Denies any abdominal pain, nausea or vomiting. She is status post laparoscopic cholecystectomy. Today's repeat LFTs no significant change. Total bilirubin remains at 3.9 AST slightly improved at 100 as well as ALT at 84 alkaline phosphatase 551. Patient underwent MRCP, results currently pending. 06/06/2023 Patient seen and examined as a follow-up. She continues to have no abdominal pain, no nausea or or vomiting. Today's labs improving total bilirubin 2.8 AST 59 ALT 62 alkaline phosphatase 541. She is afebrile. She underwent MRCP yesterday which due to her body habitus exam was limited. Common bile duct was not visualized unable to delineate if there were CBD stones. Radiology stated that there were multiple small calcifications in the common bile duct seen on CT imaging from 05/30/2023. Objective - Vital Signs Vital signs: Vital Signs Temp 97.5 F L 06/06/23 08:00 Pulse 55 L 06/06/23 08:00 Resp 17 06/06/23 08:00 BP 124/67 06/06/23 08:00 Pulse Ox 94 L 06/06/23 08:13 FiO2 Intake & Output 06/05/23 06/06/23 06/06/23 18:59 06:59 18:59 Other: Voiding Method Toilet # Voids 1 0 - Exam General appearance: The patient is alert, oriented, appears in no acute distress. HET: Head is normocephalic and atraumatic. Conjunctiva pink. Sclera anicteric. Neck: Supple without lymphadenopathy. Abdomen: Soft, no epigastric or right upper quadrant tenderness, surgical incision tenderness, obese, nondistended. Extremities: Normal skin color and turgor. No pedal edema Skin: No rashes, jaundice. Neurological: No focal deficits. Alert and oriented. - Labs CBC & Chem 7: 06/04/23 08:18 06/06/23 06:47 Labs: Abnormal Lab Results - Last 24 Hours (Table) 06/05/23 06/05/23 06/05/23 Range/Units 11:30 16:53 18:17 POC Glucose (mg/dL) 183 H 111 H 119 H (70-110) mg/dL 06/05/23 06/06/23 Range/Units 20:26 05:30 POC Glucose (mg/dL) 144 H 187 H (70-110) mg/dL Assessment and Plan (1) Choledocholithiasis Narrative/Plan: Patient's initial imaging including CT abdomen pelvis and gallbladder ultrasound revealed cholelithiasis however no CBD dilation and no reports of concerns for CBD stones within the common bile duct. Patient underwent MRCP yesterday which unfortunately due to body habitus was limited exam but Dr. Calderon made reference in his report to multiple small calcifications in common bile duct compatible with choledocholithiasis seen on CT imaging from 05/30/2023. This was clarified with Dr. Calderon as there was no report of this on the initial CT of the abdomen and pelvis on 05/30/2023. He was asked to add an addendum and agreed to that. Patient will undergo ERCP tomorrow for evaluation of choledocholithiasis. Current Visit: Yes Status: Acute Code(s): K80.50 - CALCULUS OF BILE DUCT W/O CHOLANGITIS OR CHOLECYST W/O OBST SNOMED Code(s): 245833100 (2) Nausea and vomiting Narrative/Plan: 68-year-old female presenting with nausea and vomiting. Patient is a hemodialysis patient who was supposed to get hemodialysis yesterday however after 30 minutes her fistula infiltrated. She came in and presented with nausea and vomiting, fluid overload. Was noted to have elevated liver enzymes as well. Patient does have a history of elevated liver enzymes in the past. She has a history of hepatocellular disease as noted on CT abdomen pelvis and previous imaging. Likely secondary to diabetes mellitus and hepatic steatosis. Gallbladder ultrasound does show some gallstones without any CBD dilation. CT abdomen pelvis with no acute findings. Will treat symptomatically for nausea and vomiting and can trend LFTs. Will also consult general surgery for cholelithiasis, elevated liver enzymes and history of biliary hyperkinesia seen on recent HIDA scan done on 05/13/2023. Current Visit: Yes Status: Acute Code(s): R11.2 - NAUSEA WITH VOMITING, UNSPECIFIED SNOMED Code(s): 60935281 (3) Elevated liver enzymes Narrative/Plan: possibly superimposed from underlying hepatocellular disease from diabetes mellitus and hepatic steatosis, however need to consider a cholestatic pattern from possible choledocholithiasis as they have continued to trend up. Patient is scheduled for laparoscopic cholecystectomy today with general surgery. Current Visit: No Status: Acute Code(s): R74.8 - ABNORMAL LEVELS OF OTHER SERUM ENZYMES SNOMED Code(s): 406781158 (4) End stage renal disease Narrative/Plan: Patient end-stage renal disease on hemodialysis. Continue with recommendations from nephrology Current Visit: No Status: Acute Code(s): N18.6 - END STAGE RENAL DISEASE SNOMED Code(s): 34317978 (5) Cholelithiasis Current Visit: Yes Status: Acute Code(s): K80.20 - CALCULUS OF GALLBLADDER W/O CHOLECYSTITIS W/O OBSTRUCTION SNOMED Code(s): 834814245 Plan: 1. Continue symptomatic and supportive care 2. Diet per recommendations from general surgery, n.p.o. after midnight 3. Daily CBC, CMP 4. INR ordered 5. Continue IV antibiotics 6. Give indomethacin per rectum as ordered 1 hour prior to procedure Thank you for this consultation, we will continue to follow. Dr. Mili Poe I agree with the dictator's note, documented as a scribe by Radha Melton.
[2023-06-06 16:32] LABS: Glucose,Whole Blood 151 mg/dL (70-110)
[2023-06-06] MEDS: HYDROcodone/APAP 5-325MG 1 EACH TAB PO PRN (20:20)
[2023-06-06 21:12] LABS: Glucose,Whole Blood 134 mg/dL (70-110)
--- NOTE | 2023-06-06 22:25 | P.PN ---
Subjective Progress Note Date: 06/06/23 HISTORY OF PRESENT ILLNESS: 68-year-old female 89 office patient who was hospitalized recently at [facility] for abscess and infected armpit area with slight recurrent abdominal discomfort with gallbladder dyskinesia at the time. Patient has end-stage renal disease on hemodialysis 3 times a week also has known to have type 2 diabetes, obstructive sleep apnea, hypertension, hyperlipidemia, hypothyroidism, she brought to the emergency department because of intractable nausea vomiting and diarrhea could not complete dialysis yesterday with worsening fever and chills with abdominal distention without any significant chest pain no bloody stool. Also had infiltrate her fistula which the reason why here hemodialysis was stopped early. With her current symptoms and the significant abnormal liver function test from her last hospitalization which patient was study in detail and found to have biliary hypokinesia via HIDA scan done last month. Patient liver function test this time came back with total bilirubin of 1.9 with AST of 414 and ALT 154 with alkaline phosphatase 224 also lipase of 315 with amylase of 49 which make the diagnosis of subacute pancreatitis as well. Also she continued to have significant anemia with hemoglobin of 8.1 platelet count 1 65, 000 patient creatinine was 6.5 with BUN of 39. Patient was seen and evaluated at the emergency department with above complaint COVID influenza and RSV were negative, CT of the abdomen and pelvis was performed again this time and showed no bowel obstruction with no acute finding identified to the amount of patient's symptoms of the pancreas visualized to be fine with small but prominent calcification on the gallbladder as a gallstone with no surrounding ill-defined fluid and fat stranding. Gallbladder ultrasound was performed again as well and showed hepatomegaly with heterogeneous hyper echoic appearance of the liver suggestive of diffuse fatty infiltrate with hepatocellular disease with no adjacent ascites, gallstones redemonstrated without ultrasound evidence of acute cholecystitis. Patient was hospitalized and consult at this point gastroenterology for her recurrent symptoms with nausea and vomiting to conclude the possibility of gallbladder and gallstone with abnormal liver function test. And also to help to make decision whether her gallbladder should be removed or not. Cardiology consultation for cardiology clearance which patient has no history of cardiac disease no change on her EKG at this point or any change in cardiac enzymes. Nephrology consultation was requested to continue hemodialysis. Also request consult of vascular for her fistula. 06/03/2023: Patient was evaluated through the weekend by cardiology, general surgery, nephrology. Was continued on hemodialysis, also continue on IV antibiotic with Rocephin and Flagyl due to slight concern of leukocytosis. 3 did not have any increased nausea or vomiting no diarrhea, liver function test still slightly bit elevated. Cardiology evaluated patient ordered an echocardiogram and and furthermore decided to do a nuclear stress test before clearing her for surgery. Nuclear stress test scheduled this morning if patient goes through with no problem she will be going for her cholecystectomy as an extent. 06/04/2023: Laboratory values showed slight increase in alkaline phosphatase along with total bilirubin make the possibility of having obstruction of the common bile with stone or other is much higher. Delay patient discharge at this point and should go for an MRCP initially if there is any finding consistent with stone or blockage of the common duct she might need to go for an ERCP to extract stone and stent the area. Will delay discharge till this is done and cleared in the meanwhile repeat labs again tomorrow. Patient hemodialysis days today which we will continue to do as an inpatient. 06/05/2023: Patient MRCP came back with several area of calcification in the common duct consistent with cholelithiasis. Patient will be seen gastroenterology for ERCP probably to extract the stone and probably do stent in the common duct. 06/06/2023: After finishing the MRCP and finding more calcification and possibly stone across the common duct patient liver enzymes continue to be elevated total bilirubin still at 2.8 right alk phos 541 AST 59 ALT 62, specially with the current findings will require to go for an ERCP and possible required to extract the stone and put a stent in the common duct. Apparently gastroenterology are planning to do this procedure on Saturday. Meanwhile patient is asymptomatic continue clear liquid diet and advance gradually and dialysis will be done today as well. REVIEW OF SYSTEMS: CONSTITUTIONAL: Well-developed no acute respiratory distress. EYES: No icterus sclerae, no conjunctivitis. EARS, NOSE, MOUTH, THROAT, and FACE: No sore throat, lymphadenopathy, carotid b ruits or deformity. RESPIRATORY: Slight shortness of breath no cough or wheezes.. CARDIOVASCULAR: Positive PND orthopnea palpitation no angina.. GASTROINTESTINAL: Positive abdominal pain with nausea vomiting diarrhea no constipation no acute gastrointestinal bleed no distention or masses.. GENITOURINARY: Decreased urine output she is on hemodialysis.. INTEGUMENT/BREAST: Negative for any muscular injury with mild osteoarthritis.. HEMATOLOGIC/LYMPHATIC: Chronic anemia and hematoma around the fistula graft.. MUSCULOSKELTAL: Negative for Myalgia or arthralgia. NEURLOGICAL: No LOC, Sz or syncope, blurred vision dizziness or abnormality.. BEHAVIORAL/PSYCH: Negative. ENDOCRINE: Negative. PHYSICAL EXAMINATION: General Appearance: Alert, cooperative, no distress, appears stated age. Neck HEENT: Supple, no lymphadenopathy, no thyroid enlargement, no carotid bruits. Lungs: Positive fine rhonchi in the bases with crackles mostly limited area on the right side no wheezes. Chest Wall: Decreased expansion with deep inspiration no tenderness and no deformity was found on exam, no costochondral pain or discomfort. Heart: Regular rate and rhythm, S1, S2 normal, no murmur, rub or gallop. Back: Symmetric, no curvature, ROM normal, no CVA tenderness. Abdomen: Soft with slight tenderness in the mid epigastric and right upper quadrant area no rebound or rigidity slight hepatomegaly not able to feel any splenomegaly at this point and very limited amount of ascites. Extremities: Trace edema, her fistula graft in the left side has slight hematoma on the side. Pulses: 2+ and symmetric. Skin: Skin color, texture, tugor normal, no rashes or lesions. Neurologic: Alert oriented x3 cranial nerves II through XII intact, no motor deficit, no abnormal balance or gait. ASSESSMENT AND PLAN: _Acute on subacute pancreatitis now retrospectively This is a result of gallstone passed into the common duct and blocked the pancreatic duct causing pancreatitis. Fortunately pancreatitis is resolved at this point but continue to see more evidence of common duct stone. _Gallstone without any acute cholecystitis: With the possibility of possible common duct stone passing black the pancreatic duct causing subacute pancreatitis patient will remain on antibiotic for treating this? Of ascending cholangitis till infection is clear out till the gallbladder is out. Again after taking her gallbladder out doing an MRCP is showing some common duct stone. ERCP will be needed to extract the stone. _gallbladder dyskinesia with recurrent symptoms of gallstone: Post laparoscopic cholecystectomy successful except still have some stone in the common duct. _Elevated liver function test again following surgery: Specially alkaline phosphatase and total bilirubin which make the possibility of something blocking the common duct is very high patient be going for MRCP initially if any finding consistent with a problem might require to go for an ERCP to extract stone and put a stent in the common duct. _ Common duct stone: Positive MRCP at this point patient required to go for an ERCP probably with extraction of stone. Consult gastroenterology keep patient n.p.o. for possible doing this tomorrow. _End-stage renal disease: On hemodialysis 3 times a week resume dialysis. Resume dialysis continue phosphorus stabilizing medication and vitamin D. _Hypertension: Blood pressure remains well-controlled on Coreg 25 mg twice a day should be on smaller dose of losartan as well. _Hypothyroidism: Continue levothyroxine 225 mcg daily on Saturday the rest of the week is on 50 mcg. _Type 2 diabetes: Continue Humalog 22 units AC meals still on Lantus 23 units twice daily as well, continue Accu-Chek with sliding scale coverage. _Chronic anemia: Iron deficiency from end-stage renal disease continue to watch hemoglobin and iron level continue Procrit. Planning: Her MRCP is positive patient hopefully will move on into doing an ERCP with stone extraction and stent which is procedure will be planned for tomorrow.. Objective - Vital Signs Vital signs: Vital Signs Temp 97.8 F 06/06/23 01:00 Pulse 54 L 06/06/23 01:00 Resp 16 06/06/23 01:00 BP 124/67 06/06/23 01:00 Pulse Ox 96 06/06/23 01:00 FiO2 Intake & Output 06/05/23 06/05/23 06/06/23 06:59 18:59 06:59 Weight 96 kg Other: Voiding Method Toilet Toilet # Voids 1 1 0 - Labs CBC & Chem 7: 06/04/23 08:18 06/06/23 06:47 Labs: Abnormal Lab Results - Last 24 Hours (Table) 06/05/23 06/05/23 06/05/23 Range/Units 11:30 16:53 18:17 POC Glucose (mg/dL) 183 H 111 H 119 H (70-110) mg/dL 06/05/23 06/06/23 Range/Units 20:26 05:30 POC Glucose (mg/dL) 144 H 187 H (70-110) mg/dL
[2023-06-07 05:26] LABS: Glucose,Whole Blood 166 mg/dL (70-110)
[2023-06-07 07:02] LABS: Anisocytosis Slight; Basophils # (A) 0.1 k/uL (0-0.2); Basophils % (A) 1 %; Eosinophils # (A) 0.2 k/uL (0-0.7); Eosinophils % (A) 3 %; HCT 26.1 % (34.0-46.0); HGB 8.2 gm/dL (11.4-16.0); Hypochromasia Moderate; Lymphocytes # (A) 1.4 k/uL (1.0-4.8); Lymphocytes % (A) 19 %; MCH 34.1 pg (25.0-35.0); MCHC 31.3 g/dL (31.0-37.0); Macrocytosis Marked; Mean Platelet Volume 10.8; Monocytes # (A) 0.2 k/uL (0-1.0); Monocytes % (A) 3 %; Neutrophils # (A) 5.4 k/uL (1.3-7.7); Neutrophils % (A) 72 %; Platelet Count 138 k/uL (150-450); RDW 17.6 % (11.5-15.5); WBC 7.5 k/uL (3.8-10.6)
[2023-06-07 07:21] LABS: ALT 52 U/L (4-34); AST 80 U/L (14-36); African American GFR (CKD) 11 (>60 ml/min/1.73 sqM); Albumin 2.5 g/dL (3.5-5.0); Albumin/Globulin Ratio 0.7; Alkaline Phosphatase 506 U/L (38-126); Anion Gap 8 mmol/L; Blood Urea Nitrogen 31 mg/dL (7-17); Calcium 7.8 mg/dL (8.4-10.2); Carbon Dioxide 23 mmol/L (22-30); Chloride 101 mmol/L (98-107); Globulin 3.5 g/dL; Glucose 154 mg/dL (74-99); Lipase 97 U/L (23-300); Non-African American GFR(CKD) 9 (>60 ml/min/1.73 sqM); Sodium 132 mmol/L (137-145); Total Bilirubin 2.8 mg/dL (0.2-1.3)
[2023-06-07 08:03] LABS: Potassium 4.8 mmol/L (3.5-5.1)
--- NOTE | 2023-06-07 08:59 | P.PN ---
Progress Note - Text Progress Note Date: 06/07/23 Patient feels better today. She has no significant abdominal pain. She is tolerating diet. On exam vital signs are stable. Abdomen soft. Status post cholecystectomy. Patient will be discharged home per the medical service.
[2023-06-07] MEDS: SODIUM CHLORIDE 0.9% 500 ML 500 ML IV ONE (10:10)
[2023-06-07 11:23] LABS: Glucose,Whole Blood 180 mg/dL (70-110)
[2023-06-07] MEDS: INDOMETHACIN 100 MG SUPPOSITORY RECTAL ONE (11:48)
[2023-06-07 12:16] LABS: GGT 331 U/L (0-38)
[2023-06-07] MEDS ORDERED: SUCCINYLCHOLINE CHLORIDE 200 MG/10 ML VIAL IV ONE (12:19)
[2023-06-07] MEDS ORDERED: ROCURONIUM 10 MG/ML (5 ML VIAL) IV ONE (12:19)
[2023-06-07] MEDS ORDERED: fentaNYL (PF) 50 MCG/ML 2 ML AMP ONE (12:19)
[2023-06-07] MEDS ORDERED: LIDOCAINE 1% INJ 10MG/ML (20 ML MDV) ONE (12:19)
[2023-06-07] MEDS ORDERED: PROPOFOL 10 MG/ML 20 ML VIAL IV ONE (12:19)
[2023-06-07 12:21] LABS: ALT 51 U/L (8-44); AST 54 U/L (13-35); Albumin 2.4 g/dL (3.8-4.9); Albumin/Globulin Ratio 0.77 Ratio (1.60-3.17); Alkaline Phosphatase 518 U/L (41-126); BUN/Creat Ratio 5.49 Ratio (12.00-20.00); Calcium 8.2 mg/dL (8.7-10.3); Carbon Dioxide 24.6 mmol/L (21.6-31.8); Chloride 98 mmol/L (96-109); Globulin 3.1 g/dL (1.6-3.3); Glucose 163 mg/dL (70-110); Potassium 4.2 mmol/L (3.5-5.5); Sodium 135 mmol/L (135-145); Total Bilirubin 2.2 mg/dL (0.3-1.2); Total Protein 5.5 g/dL (6.2-8.2)
--- NOTE | 2023-06-07 13:01 | P.PCN ---
Date of Procedure: 06/07/23 Procedure(s) Performed: Brief history: Patient is a 68-year-old year-old pleasant lady scheduled for an ERCP as part of evaluation of choledocholithiasis. The patient presented to the hospital week ago with severe epigastric pain associated with nausea vomiting. She subsequently was noted to have mild elevation of serum transaminases and bili up to 2.5. She had CT of abdomen and pelvis done that showed gallstones and she underwent bypass surgery 2 days ago. She continued to have persistent elevation of bilirubin and hence had an MRCP done yesterday that revealed small common bile duct stones.. Procedure performed: ERCP with biliary sphincterotomy and CBD stone extraction Preoperative diagnoses: Elevated LFTs/jaundice/MRCP revealed CBD stones IV sedation per anesthesia: Procedure: After informed consent was obtained from the patient and after the risks benefits and complications including bleeding perforation and pancreatitis explained in detail the patient was brought into the endoscopy unit. The patient was placed in prone position and IV conscious sedation was administered by anesthesia under continuous monitoring. The Olympus side-viewing duodenoscope was then inserted into the mouth and esophagus intubated without any difficulty. The scope was gradually advanced into the stomach and duodenum. The major papilla was identified without any difficulty. Initial cannulation resulted in episodes of the pancreatic duct that appeared normal. Subsequent cannulation resulted in opacification of the common bile duct and upon injection of the dye the CBD appeared slightly dilated measuring 7-8 mm in diameter. Small filling defects were noted. At this time the catheter was exchanged over a guidewire with a biliary sphincterotome and was advanced into the distal common bile duct. A biliary sphincterotomy was performed at that position and was extended to 1 cm in length. Following this a 8.5 mm balloon catheter was passed over the guidewire into the proximal CBD, gently inflated and withdrawn. 3 small stones measuring 3-4 mm in size extracted without any difficulty. Large amount of sludge was also extracted. Occlusion cholangio-Alfredo was performed and no other filling defects were noted. At this time the procedure was terminated. The patient tolerated the procedure well. Impression: 1. Normal-appearing pancreatic duct 2. Slightly dilated common bile duct with small filling defect status post biliary sphincterotomy and balloon stone extraction and 3 small stones extracted as described above Recommendations: The findings of this examination were discussed with the patient. She'll be on a clear liquid diet today. Advance diet as tolerated tomorrow. Follow-up labs closely
[2023-06-07 13:32] LABS: Glucose,Whole Blood 209 mg/dL (70-110)
--- NOTE | 2023-06-07 13:46 | FL ---
EXAMINATION TYPE: FL ERCP Intraoperative/procedural fluoroscopic services were provided. Total fluoro scopy time is 13.3 seconds with a total of 3 submitted images to PACS. Please see the operative/proce dural note for further details. DAP: [id number] [id number]
[2023-06-07 14:14] LABS: ABG Base Excess 1.5 mmol/L; ABG HCO3 25 mmol/L (21-25); ABG PCO2 35 mmHg (35-45); ABG PH 7.47 (7.35-7.45); ABG PO2 306 mmHg (83-108); ABG TCO2 26 mmol/L (19-24)
[2023-06-07] MEDS ORDERED: IPRATROPIUM-ALBUTEROL 3 ML NEB INHALATION PRN (14:15)
[2023-06-07 14:19] LABS: ABG Oxygen Saturation 99.7 % (94-97)
[2023-06-07] MEDS ORDERED: Magnesium Replacement Protocol 1 EACH MISC MISCELLANE PRN (14:34)
[2023-06-07] MEDS ORDERED: Potassium Replacement Protocol 1 EACH MISC MISCELLANE PRN (14:34)
[2023-06-07] MEDS ORDERED: Phosphorus Replacement Protoco 1 EACH MISC MISCELLANE PRN (14:34)
--- NOTE | 2023-06-07 14:39 | XR ---
EXAMINATION TYPE: XR chest 1V portable DATE OF EXAM: 06/07/2023 2:34 PM CLINICAL INDICATION:Female, 68 years old with history of Tube placement; COMPARISON: Chest radiographs from 05/30/2023 TECHNIQUE: XR chest 1V portable Frontal view of the chest. FINDINGS: Lungs/Pleura: There is no evidence of pleural effusion, focal consolidation, or pneumothorax. Pulmonary vascularity: Unremarkable. Heart/mediastinum: Cardiomediastinal silhouette is unremarkable. Musculoskeletal: No acute osseous pathology. Other findings: None Lines/Tubes: Endotracheal tube with distal tip 4.5 cm above the antwon. Nasogastric tube with its distal tip and side-port projecting under the diaphragm. IMPRESSION: Cardiomegaly and mild pulmonary vascular congestion. Correlate with BNP for congestive heart failure.
[2023-06-07] MEDS: propofoL 100 ML IV ONE (14:43)
[2023-06-07 14:54] LABS: Anisocytosis Slight; Basophils # (A) 0.1 k/uL (0-0.2); Basophils % (A) 1 %; Eosinophils # (A) 0.2 k/uL (0-0.7); Eosinophils % (A) 2 %; HCT 25.7 % (34.0-46.0); HGB 8.2 gm/dL (11.4-16.0); Hypochromasia Slight; Lymphocytes # (A) 1.2 k/uL (1.0-4.8); Lymphocytes % (A) 16 %; MCH 34.4 pg (25.0-35.0); MCV 107.5 fL (80.0-100.0); Macrocytosis Marked; Mean Platelet Volume 10.7; Monocytes # (A) 0.2 k/uL (0-1.0); Monocytes % (A) 3 %; Neutrophils # (A) 5.8 k/uL (1.3-7.7); Neutrophils % (A) 77 %; Platelet Count 131 k/uL (150-450); RBC 2.39 m/uL (3.80-5.40); RDW 17.6 % (11.5-15.5); WBC 7.5 k/uL (3.8-10.6)
--- NOTE | 2023-06-07 15:03 | P.CNPUL ---
History of Present Illness Consult date: 06/07/23 Chief complaint: Cardiac arrest History of present illness: This is a 68-year-old female patient was seen in the endoscopy room as the patient was undergoing an ERCP for choledocholithiasis patient also underwent biliary sphincterectomy and balloon extraction of a total of 3 small stones. Noted the patient presented to the hospital approximately a week ago for epigastric pain along with nausea and vomiting and subsequently patient was found to have elevated and in the bilirubin and transaminitis. CAT scan of the abdomen pelvis showed gallstones and the patient underwent a cholecystectomy approximately 2 days ago. The patient continues to have issues with pain and elevation in LFTs. Based on that, the patient underwent an ERCP today. Note that following the procedure, the patient was being flipped around and end-tidal CO2 was found to be extremely low and subsequently the patient was found to be unresponsive. At that time the patient was still intubated. She was blue. She was pulseless. The rhythm could not be established as the patient did not have the leads on her chest. Immediately, CPR was initiated and the patient was given 1 round of epinephrine and subsequently a dose of epinephrine for bradycardia. She received CPR for total of 2 to 3 minutes and subsequently there was return of spontaneous circulation and a blood pressure. The patient was kept intubated and patient got transferred to the intensive care unit. She is a morbidly obese female patient who weighs 100 on 144 kg and she has a body mass index of 56.2. I saw the patient in the endoscopy room and I also examined the patient in the ICU. The chest x-ray that was done showed cardiomegaly with mild pulm vessel congestion. He did she was in a good location. Inserted triple-lumen catheter and arterial line on this patient for blood pressure monitoring and hemodynamic support. At this point in time, the patient is normotensive. Blood gas showed a pH of 7.47 with a pCO2 of 35 and a pO2 of 316. This was on FiO2 of 100% with a PEEP of 5 and a total volume of 400 with a rate of 28. Morning c blood work showed a white cell count of 7.5 with a hemoglobin 8.2. Sodium was at 132, serum bicarb was at 23 with a BUN of 31 and a creatinine of 4.5. The patient also had a gamma GT of 331, AST of 80, ALT of 52, alkaline phosphatase of 506 and the patient's bilirubin was at 2.8. Lipase level was at 97. Note that the patient has end-stage renal disease on HD undergoes hemodialysis. The last hemodialysis session was yesterday with a to taylor of 2 L of fluid removed. She also has hypertension, hypothyroidism, diabetes mellitus type 2 and the patient has been maintained on Humalog 22 units with meals and Lantus 23 units twice a day along with a sliding scale coverage. The patient has issues with chronic anemia. No history of any previous cardiac disease to my knowledge. A cardiac stress test was done preoperatively on 06/03/2023 showed no evidence of any reversible ischemia and the patient had an ejection fraction of 40%. Noted the patient surgery was done on 06/03/2023 and the patient underwent a laparoscopic cholecystectomy. Surgical wound site is dry clean and intact at this point in time. 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 6 years. Last Myocardial Infarction Date:: Unknown History of Any Multi-Drug Resistant Organisms: None Reported Past Surgical History: Section, Hysterectomy, Orthopedic Surgery Additional Past Surgical History / Comment(s): Had open thrombectomy left axillary graft on 12-21-21,BONE TUMOR REMOVED FROM LT FINGER AND REPLACED WITH BONE FROM ELBOW. DIALYSIS FISTULA rt arm-old, lasik rt eye surgery, right upper ext. left AV graft revision 03-31-20 Past Anesthesia/Blood Transfusion Reactions: Postoperative Nausea & Vomiting (PONV) Past Psychological History: No Psychological Hx Reported Smoking Status: Never smoker Past Alcohol Use History: None Reported Past Drug Use History: None Reported - Past Family History Mother Family Medical History: Cancer Brother(s) Family Medical History: Cancer Medications and Allergies Home Medications Medication Instructions Recorded Confirmed Type Aspirin 325 mg PO DAILY@1600 07/28/19 05/31/23 History Levothyroxine Sodium [Synthroid] 150 mcg PO MOTUWETHFR 03/25/20 05/31/23 History carvediloL 25 mg PO BID 08/16/21 05/31/23 History Levothyroxine Sodium [Synthroid] 225 mcg PO SUSA 12/20/21 05/31/23 History Insulin Glargine,Hum.rec.anlog 32 units SQ BID 07/21/22 05/31/23 History [Lantus Solostar Pen] Insulin Lispro [humaLOG Kwikpen] 22 unit SQ TID-W/MEALS 07/21/22 05/31/23 History Sevelamer [Renvela] 1,600 mg PO TID-W/MEALS 10/17/22 05/31/23 History Simvastatin [Zocor] 40 mg PO HS 10/17/22 05/31/23 History Midodrine [ProAmatine] 10 mg PO TID PRN 05/31/23 05/31/23 History Pantoprazole Sodium [Protonix] 20 mg PO DAILY 05/31/23 05/31/23 History traZODone HCL [Desyrel] 100 mg PO HS PRN 05/31/23 05/31/23 History Cefuroxime [Ceftin] 250 mg PO BID 7 Days #14 tab 06/04/23 Rx HYDROcodone/APAP 5-325MG [[place] 1 each PO Q4HR PRN #20 tab 06/04/23 Rx 5-325] metroNIDAZOLE [Flagyl] 250 mg PO TID #21 tab 06/04/23 Rx Allergies Allergy/AdvReac Type Severity Reaction Status Date / Time No Known Allergies Allergy Verified 05/31/23 09:34 Physical Exam Vitals: Vital Signs Temp Pulse Pulse Resp BP Pulse Ox FiO2 06/07/23 13:37 100 06/07/23 13:29 100 06/07/23 07:39 97.8 F 54 L 18 101/62 95 06/07/23 06:48 92/57 06/07/23 01:58 97.5 F L 58 L 20 87/44 98 06/06/23 20:45 98.4 F 76 16 98/75 95 06/06/23 19:46 98.6 F 97 18 94 L 06/06/23 17:00 98 F 54 L 18 157/60 Intake and Output 06/06/23 06/07/23 06/07/23 22:59 06:59 14:59 Intake Total 400 480 700 Output Total 1900 Balance -1500 480 700 Intake: IV 700 Oral 480 Hemodialysis 400 Output: Hemodialysis 1900 Other: # Voids 1 3 Weight 144 kg Patient is currently intubated and on mechanical ventilator. Remains sedated since her procedure. Has not started on propofol yet. Orotracheal and orogastric tube are both in place. She is morbidly obese with a BMI of 36.2. Head exam was generally normal. There was no scleral icterus or corneal arcus. Mucous membranes were moist. Neck was supple and without jugular venous distension, thyromegaly, or carotid bruits. Carotids were easily palpable bilaterally. There was no adenopathy. Lung sounds are diminished and the patient is scattered rhonchi heard throughout the lung ricks bilaterally. Heart sounds are irregular, positive S1-S2 without any significant murmurs appreciated. Overall heart sounds are distant. Abdominal exam revealed normal bowel sounds. The abdomen was soft, non-tender, and without masses, organomegaly, or appreciable enlargement of the abdominal aorta. Patient is morbidly obese and the organs cannot be accurately palpated. Examination of the extremities revealed easily palpable radial, femoral and pedal pulses. There was no cyanosis, clubbing or edema. Examination of the skin revealed no evidence of significant rashes, suspicious appearing nevi or other concerning lesions. Neurologically, the patient is still unresponsive. Not following any commands. Withdraws to painful stimulation. Results - Laboratory Findings CBC and BMP: 06/07/23 14:40 06/07/23 06:18 ABG ABG pH 7.47 (7.35-7.45) H 06/07/23 14:13 ABG pCO2 35 mmHg (35-45) 06/07/23 14:13 ABG pO2 306 mmHg (83-108) H 06/07/23 14:13 ABG O2 Saturation 99.7 % (94-97) H 06/07/23 14:13 PT/INR, D-dimer PT 11.9 sec (9.9-11.9) 06/06/23 07:58 INR 1.11 sec (0.93-1.11) 06/06/23 07:58 Abnormal lab findings: Abnormal Labs 05/30/23 05/30/23 05/30/23 20:24 20:24 20:24 WBC RBC 2.30 L Hgb 8.1 L Hct 23.6 L MCV 102.4 H MCH 35.1 H RDW 16.2 H Plt Count Lymphocytes # (Manual) 0.28 L Metamyelocytes # (Man) 0.08 H Macrocytosis APTT 18.0 L ABG pH ABG pO2 ABG Total CO2 ABG O2 Saturation Sodium Potassium 3.4 L Chloride Anion Gap BUN 39 H Creatinine 6.53 H Est GFR (CKD-EPI) BUN/Creatinine Ratio Glucose 105 H POC Glucose (mg/dL) Calcium Iron TIBC % Saturation Transferrin Ferritin Total Bilirubin 1.9 H GGT AST 414 H ALT 154 H Alkaline Phosphatase 224 H Total Protein Albumin 3.0 L Albumin/Globulin Ratio Lipase 315 H 05/31/23 05/31/23 05/31/23 17:21 18:15 20:24 WBC RBC Hgb Hct MCV MCH RDW Plt Count Lymphocytes # (Manual) Metamyelocytes # (Man) Macrocytosis APTT ABG pH ABG pO2 ABG Total CO2 ABG O2 Saturation Sodium Potassium Chloride Anion Gap BUN Creatinine Est GFR (CKD-EPI) BUN/Creatinine Ratio Glucose POC Glucose (mg/dL) 129 H 208 H Calcium Iron 23 L TIBC 206 L % Saturation 11.17 L Transferrin 147.0 L Ferritin 2940.0 H Total Bilirubin GGT AST ALT Alkaline Phosphatase Total Protein Albumin Albumin/Globulin Ratio Lipase 06/01/23 06/01/23 06/01/23 00:54 07:01 07:32 WBC RBC Hgb Hct MCV MCH RDW Plt Count Lymphocytes # (Manual) Metamyelocytes # (Man) Macrocytosis APTT ABG pH ABG pO2 ABG Total CO2 ABG O2 Saturation Sodium 135 L Potassium Chloride 97 L Anion Gap BUN 42 H Creatinine 5.25 H Est GFR (CKD-EPI) BUN/Creatinine Ratio Glucose 194 H POC Glucose (mg/dL) 197 H 190 H Calcium 8.3 L Iron TIBC % Saturation Transferrin Ferritin Total Bilirubin 2.9 H GGT AST 183 H ALT 160 H Alkaline Phosphatase 227 H Total Protein Albumin 3.0 L Albumin/Globulin Ratio Lipase 06/01/23 06/01/23 06/01/23 07:32 11:51 20:17 WBC 14.9 H RBC 2.48 L Hgb 8.4 L Hct 26.0 L MCV 104.7 H MCH RDW 16.5 H Plt Count 143 L Lymphocytes # (Manual) Metamyelocytes # (Man) Macrocytosis APTT ABG pH ABG pO2 ABG Total CO2 ABG O2 Saturation Sodium Potassium Chloride Anion Gap BUN Creatinine Est GFR (CKD-EPI) BUN/Creatinine Ratio Glucose POC Glucose (mg/dL) 187 H 129 H Calcium Iron TIBC % Saturation Transferrin Ferritin Total Bilirubin GGT AST ALT Alkaline Phosphatase Total Protein Albumin Albumin/Globulin Ratio Lipase 06/02/23 06/02/23 06/02/23 06:49 06:49 11:47 WBC RBC 2.64 L Hgb 9.0 L Hct 27.9 L MCV 105.3 H MCH RDW 16.4 H Plt Count Lymphocytes # (Manual) Metamyelocytes # (Man) Macrocytosis APTT ABG pH ABG pO2 ABG Total CO2 ABG O2 Saturation Sodium 135 L Potassium Chloride Anion Gap BUN 37 H Creatinine 4.26 H Est GFR (CKD-EPI) BUN/Creatinine Ratio Glucose POC Glucose (mg/dL) 162 H Calcium Iron TIBC % Saturation Transferrin Ferritin Total Bilirubin 2.5 H GGT AST 179 H ALT 150 H Alkaline Phosphatase 327 H Total Protein Albumin 3.1 L Albumin/Globulin Ratio Lipase 06/02/23 06/02/23 06/03/23 16:33 19:47 06:47 WBC RBC 2.56 L Hgb 8.7 L Hct 26.6 L MCV 103.7 H MCH RDW 16.4 H Plt Count 127 L Lymphocytes # (Manual) Metamyelocytes # (Man) Macrocytosis APTT ABG pH ABG pO2 ABG Total CO2 ABG O2 Saturation Sodium Potassium Chloride Anion Gap BUN Creatinine Est GFR (CKD-EPI) BUN/Creatinine Ratio Glucose POC Glucose (mg/dL) 208 H 175 H Calcium Iron TIBC % Saturation Transferrin Ferritin Total Bilirubin GGT AST ALT Alkaline Phosphatase Total Protein Albumin Albumin/Globulin Ratio Lipase 06/03/23 06/03/23 06/04/23 06:47 20:03 06:59 WBC RBC Hgb Hct MCV MCH RDW Plt Count Lymphocytes # (Manual) Metamyelocytes # (Man) Macrocytosis APTT ABG pH ABG pO2 ABG Total CO2 ABG O2 Saturation Sodium 134 L Potassium Chloride Anion Gap BUN 50 H Creatinine 5.63 H Est GFR (CKD-EPI) BUN/Creatinine Ratio Glucose POC Glucose (mg/dL) 125 H 141 H Calcium 8.3 L Iron TIBC % Saturation Transferrin Ferritin Total Bilirubin 2.8 H GGT AST 156 H ALT 139 H Alkaline Phosphatase 445 H Total Protein 6.0 L Albumin 2.7 L Albumin/Globulin Ratio Lipase 06/04/23 06/04/23 06/04/23 08:18 08:18 16:31 WBC RBC 2.61 L Hgb 9.0 L Hct 27.9 L MCV 106.9 H MCH RDW 16.3 H Plt Count 116 L Lymphocytes # (Manual) Metamyelocytes # (Man) Macrocytosis Marked A APTT ABG pH ABG pO2 ABG Total CO2 ABG O2 Saturation Sodium 133 L Potassium Chloride Anion Gap BUN 62 H Creatinine 6.91 H Est GFR (CKD-EPI) BUN/Creatinine Ratio Glucose 137 H POC Glucose (mg/dL) 132 H Calcium 8.3 L Iron TIBC % Saturation Transferrin Ferritin Total Bilirubin 3.9 H GGT AST 137 H ALT 106 H Alkaline Phosphatase 505 H Total Protein 6.0 L Albumin 2.6 L Albumin/Globulin Ratio Lipase 06/04/23 06/05/23 06/05/23 20:20 05:17 05:41 WBC RBC Hgb Hct MCV MCH RDW Plt Count Lymphocytes # (Manual) Metamyelocytes # (Man) Macrocytosis APTT ABG pH ABG pO2 ABG Total CO2 ABG O2 Saturation Sodium 133 L Potassium Chloride 97 L Anion Gap BUN 41 H Creatinine 5.34 H Est GFR (CKD-EPI) BUN/Creatinine Ratio Glucose 164 H POC Glucose (mg/dL) 146 H 176 H Calcium 8.0 L Iron TIBC % Saturation Transferrin Ferritin Total Bilirubin 3.9 H GGT AST 100 H ALT 84 H Alkaline Phosphatase 551 H Total Protein 5.6 L Albumin 2.4 L Albumin/Globulin Ratio Lipase 06/05/23 06/05/23 06/05/23 11:30 16:53 18:17 WBC RBC Hgb Hct MCV MCH RDW Plt Count Lymphocytes # (Manual) Metamyelocytes # (Man) Macrocytosis APTT ABG pH ABG pO2 ABG Total CO2 ABG O2 Saturation Sodium Potassium Chloride Anion Gap BUN Creatinine Est GFR (CKD-EPI) BUN/Creatinine Ratio Glucose POC Glucose (mg/dL) 183 H 111 H 119 H Calcium Iron TIBC % Saturation Transferrin Ferritin Total Bilirubin GGT AST ALT Alkaline Phosphatase Total Protein Albumin Albumin/Globulin Ratio Lipase 06/05/23 06/06/23 06/06/23 20:26 05:30 06:47 WBC RBC Hgb Hct MCV MCH RDW Plt Count Lymphocytes # (Manual) Metamyelocytes # (Man) Macrocytosis APTT ABG pH ABG pO2 ABG Total CO2 ABG O2 Saturation Sodium 133 L Potassium Chloride 94 L Anion Gap 14.10 H BUN 46.9 H Creatinine 6.8 H Est GFR (CKD-EPI) 6 L BUN/Creatinine Ratio 6.90 L Glucose 185 H POC Glucose (mg/dL) 144 H 187 H Calcium 8.6 L Iron TIBC % Saturation Transferrin Ferritin Total Bilirubin 2.8 H GGT AST 59 H ALT 62 H Alkaline Phosphatase 541 H Total Protein 5.5 L Albumin 2.4 L Albumin/Globulin Ratio 0.77 L Lipase 06/06/23 06/06/23 06/06/23 11:18 16:30 21:11 WBC RBC Hgb Hct MCV MCH RDW Plt Count Lymphocytes # (Manual) Metamyelocytes # (Man) Macrocytosis APTT ABG pH ABG pO2 ABG Total CO2 ABG O2 Saturation Sodium Potassium Chloride Anion Gap BUN Creatinine Est GFR (CKD-EPI) BUN/Creatinine Ratio Glucose POC Glucose (mg/dL) 113 H 151 H 134 H Calcium Iron TIBC % Saturation Transferrin Ferritin Total Bilirubin GGT AST ALT Alkaline Phosphatase Total Protein Albumin Albumin/Globulin Ratio Lipase 06/07/23 06/07/23 06/07/23 05:24 06:18 06:18 WBC RBC 2.40 L Hgb 8.2 L Hct 26.1 L MCV 109.0 H MCH RDW 17.6 H Plt Count 138 L Lymphocytes # (Manual) Metamyelocytes # (Man) Macrocytosis Marked A APTT ABG pH ABG pO2 ABG Total CO2 ABG O2 Saturation Sodium Potassium Chloride Anion Gap 12.40 H BUN 28.0 H Creatinine 5.1 H Est GFR (CKD-EPI) 9 L BUN/Creatinine Ratio 5.49 L Glucose 163 H POC Glucose (mg/dL) 166 H Calcium 8.2 L Iron TIBC % Saturation Transferrin Ferritin Total Bilirubin 2.2 H GGT 331 H AST 54 H ALT 51 H Alkaline Phosphatase 518 H Total Protein 5.5 L Albumin 2.4 L Albumin/Globulin Ratio 0.77 L Lipase 06/07/23 06/07/23 06/07/23 06:18 11:21 13:30 WBC RBC Hgb Hct MCV MCH RDW Plt Count Lymphocytes # (Manual) Metamyelocytes # (Man) Macrocytosis APTT ABG pH ABG pO2 ABG Total CO2 ABG O2 Saturation Sodium 132 L Potassium Chloride Anion Gap BUN 31 H Creatinine 4.51 H Est GFR (CKD-EPI) BUN/Creatinine Ratio Glucose 154 H POC Glucose (mg/dL) 180 H 209 H Calcium 7.8 L Iron TIBC % Saturation Transferrin Ferritin Total Bilirubin 2.8 H GGT AST 80 H ALT 52 H Alkaline Phosphatase 506 H Total Protein 6.0 L Albumin 2.5 L Albumin/Globulin Ratio Lipase 06/07/23 14:13 WBC RBC Hgb Hct MCV MCH RDW Plt Count Lymphocytes # (Manual) Metamyelocytes # (Man) Macrocytosis APTT ABG pH 7.47 H ABG pO2 306 H ABG Total CO2 26 H ABG O2 Saturation 99.7 H Sodium Potassium Chloride Anion Gap BUN Creatinine Est GFR (CKD-EPI) BUN/Creatinine Ratio Glucose POC Glucose (mg/dL) Calcium Iron TIBC % Saturation Transferrin Ferritin Total Bilirubin GGT AST ALT Alkaline Phosphatase Total Protein Albumin Albumin/Globulin Ratio Lipase - Diagnostic Findings Chest x-ray: image reviewed Assessment and Plan Plan: Acute cardiac arrest, exact circumstances are not clear. The patient completed the ERCP and following that, the patient was found to be below and had no pulses. Initial cardiac rhythm has not been established. It is possible that the patient was in a PEA rhythm. The patient receives CPR for a total of 2 to 3 minutes. The patient received a round of epinephrine and she was given atropine and there was return of spontaneous circulation. The patient was already intubated on the mechanical ventilator. The patient remains intubated during the course of the resuscitation. Acute hypoxic respiratory failure secondary to above, currently intubated on mechanical ventilator. Adequate oxygenation on the follow-up blood gases Acute cholecystitis and the patient is postcholecystectomy that was done on 06/03/2023 Choledocholithiasis post ERCP done on 06/07/2023 with sphincterectomy and extraction of 3 small stones Morbid obesity BMI 56.2 Diabetes mellitus type 2, currently on Levemir insulin 30 units twice daily and NovoLog 22 units with meals and sliding scale coverage. History of hypertension History of hypothyroidism Abnormal LFTs following cholecystectomy secondary choledocholithiasis. Rule out underlying component of cholangitis in addition. The patient has been covered with IV Rocephin and Flagyl throughout her current hospitalization End-stage renal disease on hemodialysis and the patient is a AV fistula in the right upper extremity. Anemia of chronic disease Plan Keep the patient intubated on mechanical ventilator and wean down FiO2 as tolerated to maintain saturation above 90%. Chest x-ray showing increased interstitial markings bilaterally and the patient may be an volume overload/CHF. Based on that, nephrology will be contacted and the patient may benefit from another session of hemodialysis today. No need for pressors and lites have been established Continue IV Rocephin and Flagyl Monitor liver function test post ERCP Obtain an echocardiogram, noted the cardiac status has been negative Continue Levemir insulin only and stop the NovoLog for now and utilize only sliding scale coverage. Keep the patient n.p.o. for now. The patient on propofol for sedation Rest of the medication will be continued which include Coreg 25 mg p.o. twice a day, DuoNeb updrafts, and IV Protonix. The patient is also on Synthroid and this will be resumed at the same dose. Obtain a twelve-lead EKG Contact cardiology should there be any abnormal rhythms such as atrial fibrillation Check troponins Consult cardiology Lovenox 30 mg subcu for DVT prophylaxis Condition is critical and will continue to follow make further recommendations based on her progress. Family will be updated on her condition. Time with Patient: Greater than 30
--- NOTE | 2023-06-07 15:06 | P.PCN ---
Date of Procedure: 06/07/23 Preoperative Diagnosis: cardiac arrest Postoperative Diagnosis: cardiac arrest Procedure(s) Performed: central line and arterial line Anesthesia: local Operative Findings: Central Line Procedure Note Indication: [x_] Hypotension/Sepsis/Need for Pressors [_] Vascular Access [_] Dialysis Access [_] Suspected Central Line Infection [_] Line Malfunction [_] Other: _ Central Line Location: [_x]x Right or [_] Left [_] Internal Jugular Vein or [ ] Subclavian Vein or [_x ] Femoral Vein Consent: [_] Consent was obtained from prior to the procedure. Indications, risks and benefits were discussed prior to the procedure. [x_] The procedure was performed emergently and the permission was implied because of the emergent nature. PROCEDURE SUMMARY: The [facility] Central Line Insertion Practices form was completed during and immediately following the procedure. A time out was performed. My hands were washed immediately prior to the procedure. I wore a surgical cap, mask with protective eyewear, full gown and sterile gloves throughout the procedure. The patient was placed in Trendelenburg position. The Left chest was prepped using chlorhexidine scrub and draped in sterile fashion using a three quarter sheet drape and sterile towels. Skin preparation was allowed to dry prior to skin puncture. Anatomic landmarks were identified. Anesthesia was achieved over the vein using 1% lidocaine. The introducer needle was inserted into the vein under direct ultrasound visualization. Venous blood was withdrawn. The syringe was removed and a guidewire was advanced into the introducer needle. A small incision was made at the skin surface with a scalpel and the introducer needle was exchanged for a dilator over the guidewire. After appropriate dilation was o btained, the dilator was exchanged over the wire for an antimicrobial coated central venous catheter. The wire was removed and the catheter was sutured in place . A biopatch was placed at the insertion site. A sterile op-site was placed over the catheter and biopatch. The patient tolerated the procedure without any hemodynamic compromise. At time of procedure completion, all ports aspirated and flushed properly. Post-procedure chest x-ray : [_] Is pending at this time. [ ] Shows adequate positioning of the catheter for use. Not needed as the patient underwent a femoral line insertion Arterial line Indication: Hemodynamic monitoring. A time-out was completed verifying correct patient, procedure, site, positioning, and implant(s) or special equipment if applicable. Allens test was performed to ensure adequate perfusion. The patients right groin was prepped and draped in sterile fashion. 1% Lidocaine was used to anesthetize the area. An 18G [place] arterial line was introduced into the right femoral artery. The catheter was threaded over the guide wire and the needle was removed with appropriate pulsatile blood return. Blood loss was minimal. The catheter was then sutured in place to the skin and a sterile dressing applied. Perfusion to the extremity distal to the point of catheter insertion was checked and found to be adequate. The patient tolerated the procedure well and there were no complications.
[2023-06-07 15:11] LABS: ALT 49 U/L (4-34); AST 60 U/L (14-36); African American GFR (CKD) 9 (>60 ml/min/1.73 sqM); Albumin 2.5 g/dL (3.5-5.0); Alkaline Phosphatase 538 U/L (38-126); Anion Gap 11 mmol/L; Blood Urea Nitrogen 32 mg/dL (7-17); Calcium 7.8 mg/dL (8.4-10.2); Carbon Dioxide 21 mmol/L (22-30); Chloride 101 mmol/L (98-107); Glucose 203 mg/dL (74-99); Magnesium 1.9 mg/dL (1.6-2.3); Non-African American GFR(CKD) 8 (>60 ml/min/1.73 sqM); Potassium 4.2 mmol/L (3.5-5.1); Sodium 133 mmol/L (137-145); Total Bilirubin 2.9 mg/dL (0.2-1.3); Total Protein 5.7 g/dL (6.3-8.2)
[2023-06-07] MEDS: IPRATROPIUM-ALBUTEROL 3 ML NEB INHALATION SCH (15:26)
--- NOTE | 2023-06-07 16:05 | P.PN ---
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 She has a past medical history of end-stage renal disease on hemodialysis, diabetes mellitus, hypertension, hyperlipidemia, hypothyroidism, obstructive sleep apnea on CPAP. We have been asked to evaluate patient for CHF. Patient states that she had nausea vomiting diarrhea could not complete her dialysis treatment she also had chills. Abdominal distention. And dizziness. She denies having any chest pain. She denies having any blood in her stools. She states she did have some shortness of breath because she did not finish her dialysis treatment. She states she is a non-smoker. No lower extremity edema. Regarding gallbladder, patient states that she has been evaluated for gallbladder surgery but this has been put on hold. EKG sinus rhythm with no acute ST-T wave changes. Chest x-ray: Findings suggestive of CHF exacerbation. WBC 4, hemoglobin 8.1, platelet count 165. INR 1. Sodium 141, potassium 3.4, BUN 39 creatinine 6.5. Magnesium 1.9. Total bilirubin 1.9, AST 414, ALT 134, alkaline phosphatase 224. Troponin negative x 1. proBNP 3270. Influenza A, influenza B, RSV, COVID-19 not detected. Home cardiac medications: Aspirin 325 mg daily, Coreg 25 mg twice daily, simvastatin 40 mg at bedtime, patient is also on midodrine as needed and levothyroxine. 06/01/2023 The patient was seen and examined resting comfortably in bed. She is overall feeling a bit better. Her abdomen is feeling better. She denies any complaints of chest discomfort at this time. Denies any shortness of breath at this time. She was seen and examined by surgical team and recommended cholecystectomy. She is scheduled for a Lexiscan MPI to be done on Saturday. Echocardiogram is pending. 06/02/2023 The patient was seen and examined resting comfortably bed. She feels her breathing is stable. She has had no further abdominal pain. She has had no nausea or vomiting. She denies any complaints of chest discomfort. She is scheduled for a Lexiscan MPI to be done tomorrow. Echocardiogram remains pending. 06/03/2023 Patient examined this morning. Patient is resting comfortably in bed. Patient denies any chest pain or pressure. She denies any shortness of breath. She denies any abdominal pain. No complaints of nausea or vomiting. Vital signs are stable. She is scheduled to undergo Lexiscan stress test today. Addendum entered and electronically signed by Ladan George NP-C 06/03/23 1 2:52: Gladys scan without evidence of reversible ischemia. Preliminary echocardiogram re veals ejection fraction 35 to 40% with no obvious regional wall motion abnormalities and mild aortic stenosis. There are no absolute contraindications for patient to proceed with surgery from a cardiac standpoint if surgery deemed appropriate to be performed today Recommend cautious fluid administration secondary to low EF and hemodialysis Patient will require eventual workup for her cardiomyopathy 06/04/2023 Patient examined this morning at bedside. Patient is status post laparoscopic cholecystectomy. Postop day #1. Patient denies chest pain or pressure. Denies SOB. Vital signs are stable. Blood pressure remains marginal. 06/06 Cardiology was reconsulted secondary to cardiac arrest during ERCP. Patient had MRCP showing areas of calcification with possible stone in the common bile duct and therefore was recommended to undergo ERCP. Her liver enzymes have been remaining elevated. She therefore underwent ERCP 06/06. Per report patient had RA been intubated and did undergo ERCP with a number of stones removed. During the procedure she was noted to have abnormal CO2 levels, had turned blue and had initially been prone. Patient was turned over and no pulse and therefore CPR was performed. Also epinephrine was given and eventually had bradycardia and was given atropine with some improvement in heart rates. Patient currently remains intubated however not on any vasopressors and sinus bradycardia with heart rates in the 50s. PHYSICAL EXAM: VITAL SIGNS: Reviewed. GENERAL: Well-developed in no acute distress. NECK: Supple. No JVD or thyromegaly LUNGS: Respirations even and unlabored. Lungs essentially clear to auscultation bilaterally. HEART: Regular rate and rhythm. S1 and S2 heard. EXTREMITIES: Normal range of motion. No clubbing or cyanosis. Peripheral pulses intact. No lower extremity edema. AV fistula to right arm. ASSESSMENT: Chronic cholecystitis; status post laparoscopic cholecystectomy Cardiomyopathy, EF 35 to 40%, ischemic versus nonischemic Mild aortic stenosis End-stage renal disease on hemodialysis Hypertension Hyperlipidemia Diabetes Obstructive sleep apnea S/p cardiac arrest, unclear cardiac versus pulmonary. Patient was apparently intubated however was prone and cyanotic PLAN: Unclear cause of cardiac arrest. No obvious ventricular tachycardia ventricular fibrillation noted during procedure. Check repeat limited 2-D echo to evaluate left ventricular function. EKG without any obvious ischemic changes. Trend troponins. Continue with supportive care. Wean ventilator as able. Patient not able to tolerate any heart failure regimen with her blood pressure low. Objective - Vital Signs Vital signs: Vital Signs Temp 97.8 F 06/07/23 07:39 Pulse 53 L 06/07/23 15:38 Resp 18 06/07/23 07:39 BP 101/62 06/07/23 07:39 Pulse Ox 95 06/07/23 07:39 FiO2 40 06/07/23 15:21 Intake & Output 06/06/23 06/07/23 06/07/23 18:59 06:59 18:59 Intake Total 400 480 700 Output Total 1900 0 Balance -1500 480 700 Weight 96 kg 144 kg Intake: IV 700 Oral 480 Hemodialysis 400 Output: Urine 0 Hemodialysis 1900 Other: # Voids 1 3 # Bowel Movements 0 - Labs CBC & Chem 7: 06/07/23 14:40 06/07/23 14:40 Labs: Abnormal Lab Results - Last 24 Hours (Table) 06/06/23 06/06/23 06/07/23 Range/Units 16:30 21:11 05:24 RBC (3.80-5.40) m/uL Hgb (11.4-16.0) gm/dL Hct (34.0-46.0) % MCV (80.0-100.0) fL RDW (11.5-15.5) % Plt Count (150-450) k/uL Macrocytosis ABG pH (7.35-7.45) ABG pO2 (83-108) mmHg ABG Total CO2 (19-24) mmol/L ABG O2 Saturation (94-97) % Sodium (137-145) mmol/L Carbon Dioxide (22-30) mmol/L Anion Gap (4.00-12.00) mmol/L BUN (9.0-27.0) mg/dL Creatinine (0.6-1.5) mg/dL Est GFR (CKD-EPI) (>=60) BUN/Creatinine Ratio (12.00-20.00) Ratio Glucose (70-110) mg/dL POC Glucose (mg/dL) 151 H 134 H 166 H (70-110) mg/dL Calcium (8.7-10.3) mg/dL Total Bilirubin (0.3-1.2) mg/dL GGT (0-38) U/L AST (13-35) U/L ALT (8-44) U/L Alkaline Phosphatase (41-126) U/L Total Protein (6.2-8.2) g/dL Albumin (3.8-4.9) g/dL Albumin/Globulin Ratio (1.60-3.17) Ratio 06/07/23 06/07/23 06/07/23 Range/Units 06:18 06:18 06:18 RBC 2.40 L (3.80-5.40) m/uL Hgb 8.2 L (11.4-16.0) gm/dL Hct 26.1 L (34.0-46.0) % MCV 109.0 H (80.0-100.0) fL RDW 17.6 H (11.5-15.5) % Plt Count 138 L (150-450) k/uL Macrocytosis Marked A ABG pH (7.35-7.45) ABG pO2 (83-108) mmHg ABG Total CO2 (19-24) mmol/L ABG O2 Saturation (94-97) % Sodium 132 L (137-145) mmol/L Carbon Dioxide (22-30) mmol/L Anion Gap 12.40 H (4.00-12.00) mmol/L BUN 28.0 H 31 H (9.0-27.0) mg/dL Creatinine 5.1 H 4.51 H (0.6-1.5) mg/dL Est GFR (CKD-EPI) 9 L (>=60) BUN/Creatinine Ratio 5.49 L (12.00-20.00) Ratio Glucose 163 H 154 H (70-110) mg/dL POC Glucose (mg/dL) (70-110) mg/dL Calcium 8.2 L 7.8 L (8.7-10.3) mg/dL Total Bilirubin 2.2 H 2.8 H (0.3-1.2) mg/dL GGT 331 H (0-38) U/L AST 54 H 80 H (13-35) U/L ALT 51 H 52 H (8-44) U/L Alkaline Phosphatase 518 H 506 H (41-126) U/L Total Protein 5.5 L 6.0 L (6.2-8.2) g/dL Albumin 2.4 L 2.5 L (3.8-4.9) g/dL Albumin/Globulin Ratio 0.77 L (1.60-3.17) Ratio 06/07/23 06/07/23 06/07/23 Range/Units 11:21 13:30 14:13 RBC (3.80-5.40) m/uL Hgb (11.4-16.0) gm/dL Hct (34.0-46.0) % MCV (80.0-100.0) fL RDW (11.5-15.5) % Plt Count (150-450) k/uL Macrocytosis ABG pH 7.47 H (7.35-7.45) ABG pO2 306 H (83-108) mmHg ABG Total CO2 26 H (19-24) mmol/L ABG O2 Saturation 99.7 H (94-97) % Sodium (137-145) mmol/L Carbon Dioxide (22-30) mmol/L Anion Gap (4.00-12.00) mmol/L BUN (9.0-27.0) mg/dL Creatinine (0.6-1.5) mg/dL Est GFR (CKD-EPI) (>=60) BUN/Creatinine Ratio (12.00-20.00) Ratio Glucose (70-110) mg/dL POC Glucose (mg/dL) 180 H 209 H (70-110) mg/dL Calcium (8.7-10.3) mg/dL Total Bilirubin (0.3-1.2) mg/dL GGT (0-38) U/L AST (13-35) U/L ALT (8-44) U/L Alkaline Phosphatase (41-126) U/L Total Protein (6.2-8.2) g/dL Albumin (3.8-4.9) g/dL Albumin/Globulin Ratio (1.60-3.17) Ratio 06/07/23 06/07/23 Range/Units 14:40 14:40 RBC 2.39 L (3.80-5.40) m/uL Hgb 8.2 L (11.4-16.0) gm/dL Hct 25.7 L (34.0-46.0) % MCV 107.5 H (80.0-100.0) fL RDW 17.6 H (11.5-15.5) % Plt Count 131 L (150-450) k/uL Macrocytosis Marked A ABG pH (7.35-7.45) ABG pO2 (83-108) mmHg ABG Total CO2 (19-24) mmol/L ABG O2 Saturation (94-97) % Sodium 133 L (137-145) mmol/L Carbon Dioxide 21 L (22-30) mmol/L Anion Gap (4.00-12.00) mmol/L BUN 32 H (9.0-27.0) mg/dL Creatinine 5.14 H (0.6-1.5) mg/dL Est GFR (CKD-EPI) (>=60) BUN/Creatinine Ratio (12.00-20.00) Ratio Glucose 203 H (70-110) mg/dL POC Glucose (mg/dL) (70-110) mg/dL Calcium 7.8 L (8.7-10.3) mg/dL Total Bilirubin 2.9 H (0.3-1.2) mg/dL GGT (0-38) U/L AST 60 H (13-35) U/L ALT 49 H (8-44) U/L Alkaline Phosphatase 538 H (41-126) U/L Total Protein 5.7 L (6.2-8.2) g/dL Albumin 2.5 L (3.8-4.9) g/dL Albumin/Globulin Ratio (1.60-3.17) Ratio
--- NOTE | 2023-06-07 16:44 | P.PN ---
Subjective Patient is seen for follow-up for end-stage renal disease. Status post laparoscopic cholecystectomy on 06/03/2023. Scheduled for ERCP today Objective - Vital Signs Vital signs: Vital Signs Temp 97.8 F 06/07/23 07:39 Pulse 53 L 06/07/23 15:38 Resp 18 06/07/23 07:39 BP 101/62 06/07/23 07:39 Pulse Ox 95 06/07/23 07:39 FiO2 40 06/07/23 15:21 Intake & Output 06/06/23 06/07/23 06/07/23 18:59 06:59 18:59 Intake Total 400 480 700 Output Total 1900 0 Balance -1500 480 700 Weight 96 kg 144 kg Intake: IV 700 Oral 480 Hemodialysis 400 Output: Urine 0 Hemodialysis 1900 Other: # Voids 1 3 # Bowel Movements 0 - Exam Patient is awake, comfortable, in no acute distress Examination of the heart S1 and S2 Examination of the lungs bilateral breath sounds are heard Abdomen is soft, mildly tender Examination of lower extremities shows no significant edema SEARCH ANALYST exam grossly intact - Labs CBC & Chem 7: 06/07/23 14:40 06/07/23 14:40 Labs: Abnormal Lab Results - Last 24 Hours (Table) 06/06/23 06/07/23 06/07/23 Range/Units 21:11 05:24 06:18 RBC (3.80-5.40) m/uL Hgb (11.4-16.0) gm/dL Hct (34.0-46.0) % MCV (80.0-100.0) fL RDW (11.5-15.5) % Plt Count (150-450) k/uL Macrocytosis ABG pH (7.35-7.45) ABG pO2 (83-108) mmHg ABG Total CO2 (19-24) mmol/L ABG O2 Saturation (94-97) % Sodium (137-145) mmol/L Carbon Dioxide (22-30) mmol/L Anion Gap 12.40 H (4.00-12.00) mmol/L BUN 28.0 H (9.0-27.0) mg/dL Creatinine 5.1 H (0.6-1.5) mg/dL Est GFR (CKD-EPI) 9 L (>=60) BUN/Creatinine Ratio 5.49 L (12.00-20.00) Ratio Glucose 163 H (70-110) mg/dL POC Glucose (mg/dL) 134 H 166 H (70-110) mg/dL Calcium 8.2 L (8.7-10.3) mg/dL Total Bilirubin 2.2 H (0.3-1.2) mg/dL GGT 331 H (0-38) U/L AST 54 H (13-35) U/L ALT 51 H (8-44) U/L Alkaline Phosphatase 518 H (41-126) U/L Total Protein 5.5 L (6.2-8.2) g/dL Albumin 2.4 L (3.8-4.9) g/dL Albumin/Globulin Ratio 0.77 L (1.60-3.17) Ratio 06/07/23 06/07/23 06/07/23 Range/Units 06:18 06:18 11:21 RBC 2.40 L (3.80-5.40) m/uL Hgb 8.2 L (11.4-16.0) gm/dL Hct 26.1 L (34.0-46.0) % MCV 109.0 H (80.0-100.0) fL RDW 17.6 H (11.5-15.5) % Plt Count 138 L (150-450) k/uL Macrocytosis Marked A ABG pH (7.35-7.45) ABG pO2 (83-108) mmHg ABG Total CO2 (19-24) mmol/L ABG O2 Saturation (94-97) % Sodium 132 L (137-145) mmol/L Carbon Dioxide (22-30) mmol/L Anion Gap (4.00-12.00) mmol/L BUN 31 H (9.0-27.0) mg/dL Creatinine 4.51 H (0.6-1.5) mg/dL Est GFR (CKD-EPI) (>=60) BUN/Creatinine Ratio (12.00-20.00) Ratio Glucose 154 H (70-110) mg/dL POC Glucose (mg/dL) 180 H (70-110) mg/dL Calcium 7.8 L (8.7-10.3) mg/dL Total Bilirubin 2.8 H (0.3-1.2) mg/dL GGT (0-38) U/L AST 80 H (13-35) U/L ALT 52 H (8-44) U/L Alkaline Phosphatase 506 H (41-126) U/L Total Protein 6.0 L (6.2-8.2) g/dL Albumin 2.5 L (3.8-4.9) g/dL Albumin/Globulin Ratio (1.60-3.17) Ratio 06/07/23 06/07/23 06/07/23 Range/Units 13:30 14:13 14:40 RBC 2.39 L (3.80-5.40) m/uL Hgb 8.2 L (11.4-16.0) gm/dL Hct 25.7 L (34.0-46.0) % MCV 107.5 H (80.0-100.0) fL RDW 17.6 H (11.5-15.5) % Plt Count 131 L (150-450) k/uL Macrocytosis Marked A ABG pH 7.47 H (7.35-7.45) ABG pO2 306 H (83-108) mmHg ABG Total CO2 26 H (19-24) mmol/L ABG O2 Saturation 99.7 H (94-97) % Sodium (137-145) mmol/L Carbon Dioxide (22-30) mmol/L Anion Gap (4.00-12.00) mmol/L BUN (9.0-27.0) mg/dL Creatinine (0.6-1.5) mg/dL Est GFR (CKD-EPI) (>=60) BUN/Creatinine Ratio (12.00-20.00) Ratio Glucose (70-110) mg/dL POC Glucose (mg/dL) 209 H (70-110) mg/dL Calcium (8.7-10.3) mg/dL Total Bilirubin (0.3-1.2) mg/dL GGT (0-38) U/L AST (13-35) U/L ALT (8-44) U/L Alkaline Phosphatase (41-126) U/L Total Protein (6.2-8.2) g/dL Albumin (3.8-4.9) g/dL Albumin/Globulin Ratio (1.60-3.17) Ratio 06/07/23 Range/Units 14:40 RBC (3.80-5.40) m/uL Hgb (11.4-16.0) gm/dL Hct (34.0-46.0) % MCV (80.0-100.0) fL RDW (11.5-15.5) % Plt Count (150-450) k/uL Macrocytosis ABG pH (7.35-7.45) ABG pO2 (83-108) mmHg ABG Total CO2 (19-24) mmol/L ABG O2 Saturation (94-97) % Sodium 133 L (137-145) mmol/L Carbon Dioxide 21 L (22-30) mmol/L Anion Gap (4.00-12.00) mmol/L BUN 32 H (9.0-27.0) mg/dL Creatinine 5.14 H (0.6-1.5) mg/dL Est GFR (CKD-EPI) (>=60) BUN/Creatinine Ratio (12.00-20.00) Ratio Glucose 203 H (70-110) mg/dL POC Glucose (mg/dL) (70-110) mg/dL Calcium 7.8 L (8.7-10.3) mg/dL Total Bilirubin 2.9 H (0.3-1.2) mg/dL GGT (0-38) U/L AST 60 H (13-35) U/L ALT 49 H (8-44) U/L Alkaline Phosphatase 538 H (41-126) U/L Total Protein 5.7 L (6.2-8.2) g/dL Albumin 2.5 L (3.8-4.9) g/dL Albumin/Globulin Ratio (1.60-3.17) Ratio Assessment and Plan Assessment: 1. End-stage renal disease maintained on hemodialysis on Saturday schedule via AV graft. 2. Infiltrated AV graft. Vascular surgery consulted. AV graft is currently functioning 3. Nausea and vomiting. CT showed no acute process. Status post laparoscopic cholecystectomy 06/03/2023 for cholecystitis with cholelithiasis. Concern for retained stone, status post MRCP and plans for ERCP today. 4. Mild volume overload. 5. Hypotension maintained on midodrine. 6. Diabetes mellitus. 7. Chronic kidney disease mineral bone disease maintained on Renvela. 8. Anemia of chronic kidney disease. Plan: Hemodialysis in a.m.
[2023-06-07] MEDS: ACETAMINOPHEN IV (For NPO) 1,000 MG in EMPTY BAG 1 BAG IVPB ONE (17:12)
[2023-06-07 18:51] LABS: Glucose,Whole Blood 201 mg/dL (70-110)
[2023-06-07] MEDS: INSULIN ASPART (NovoLOG) 100 UNIT/ML VIAL SQ SCH (19:40)
[2023-06-07] MEDS: BUDESONIDE 0.5 MG/2 ML NEBU INHALATION SCH (19:41)
[2023-06-07] MEDS: CHLORHEXIDINE GLUCONATE 15 ML CUP MUCOUS MEM SCH (21:13)
--- NOTE | 2023-06-07 22:00 | CA ---
Transthoracic Echo Report Name: Adalgisa Gonzalez Age: 68 Gender: F : 1955 Exam Date: 06/07/2023 15:17 Exam Location: [facility] Ht (in): 63 Wt (lb): 317 Ordering Physician: Chely Knutson MD Attending/Referring Phys: Candelaria Barrera MD Tour Bus Driver Karlee Lara RCS Procedure CPT: Indications: post arrest, eval lv fxn Cardiac Hx: Technical Quality: Poor Contrast 1: Definity Total Dose (mL): 4 Contrast 2: Total Dose (mL): MEASUREMENTS (Male / Female) Normal Values 2D ECHO LV Diastolic Diameter PLAX 5.6 cm 4.2 - 5.9 / 3.9 - 5.3 cm LV Systolic Diameter PLAX 4.1 cm IVS Diastolic Thickness 0.8 cm 0.6 - 1.0 / 0.6 - 0.9 cm LVPW Diastolic Thickness 0.9 cm 0.6 - 1.0 / 0.6 - 0.9 cm LV Relative Wall Thickness 0.3 RV Internal Dim ED PLAX 4.0 cm LV Diastolic Volume MOD BP 189.3 cm??? 67 - 155 / 56 - 104 cm??? LV Systolic Volume MOD BP 93.2 cm??? 22 - 58 / 19 - 49 cm??? LV Ejection Fraction MOD BP 50.8 % >= 55 % LV Cardiac Index MOD BP 1978.6 cm???/min???m??? LV Diastolic Volume MOD 4C 181.9 cm??? LV Systolic Volume MOD 4C 88.0 cm??? LV Ejection Fraction MOD 4C 51.6 % LV Cardiac Index MOD 4C 1931.9 cm???/min???m??? LV Diastolic Length 4C 8.0 cm LV Systolic Length 4C 6.6 cm LV Diastolic Volume MOD 2C 182.8 cm??? LV Systolic Volume MOD 2C 92.9 cm??? LV Ejection Fraction MOD 2C 49.1 % LV Cardiac Index MOD 2C 1847.8 cm???/min???m??? LV Diastolic Length 2C 8.6 cm LV Systolic Length 2C 7.0 cm FINDINGS Left Ventricle Left ventricular ejection fraction is estimated at 50 %. Mildly increased left ventricular diastolic diameter. Severely increased left ventricular diastolic volume. Severely increased left ventricular systolic volume. Mildly decreased left ventricular ejection fraction. Right Ventricle Moderate right ventricular dilatation. Right Atrium Right atrium not well visualized. Left Atrium Left atrium not well visualized. Mitral Valve Mitral valve not well visualized. Aortic Valve Aortic valve not well visualized. Tricuspid Valve Tricuspid valve not well visualized. Pulmonic Valve Pulmonic valve not well visualized. Pericardium Aorta Aortic root and proximal ascending aorta not well visualized. CONCLUSIONS Limited echo Mildly increased LV diastolic diameter LVEF 50-55% Normal wall thickness No obvious regional wall motion abnormality Moderate RV dilatation Previewed by: Dr Zen Dixon (Electronically Signed) Final Date: 07 June 2023 21:59
[2023-06-07 22:10] LABS: Glucose,Whole Blood 174 mg/dL (70-110)
[2023-06-07 23:36] LABS: Glucose,Whole Blood 161 mg/dL (70-110)
[2023-06-08] MEDS: NOREPINEPHRINE 4 MG in SODIUM CHLORIDE 0.9% 250 ML IV SCH (00:45)
[2023-06-08 04:38] LABS: Anisocytosis Slight; Basophils # (A) 0.1 k/uL (0-0.2); Basophils % (A) 1 %; Eosinophils # (A) 0.2 k/uL (0-0.7); Eosinophils % (A) 2 %; HCT 24.7 % (34.0-46.0); HGB 8.3 gm/dL (11.4-16.0); Lymphocytes # (A) 1.3 k/uL (1.0-4.8); Lymphocytes % (A) 17 %; MCHC 33.5 g/dL (31.0-37.0); MCV 104.6 fL (80.0-100.0); Macrocytosis Moderate; Mean Platelet Volume 11.9; Monocytes # (A) 0.3 k/uL (0-1.0); Monocytes % (A) 3 %; Neutrophils # (A) 5.9 k/uL (1.3-7.7); Neutrophils % (A) 75 %; Platelet Count 121 k/uL (150-450); RBC 2.36 m/uL (3.80-5.40); RDW 18.2 % (11.5-15.5); WBC 7.9 k/uL (3.8-10.6)
[2023-06-08 05:15] LABS: African American GFR (CKD) 8 (>60 ml/min/1.73 sqM); Anion Gap 10 mmol/L; Blood Urea Nitrogen 37 mg/dL (7-17); Carbon Dioxide 23 mmol/L (22-30); Chloride 99 mmol/L (98-107); Glucose 140 mg/dL (74-99); Non-African American GFR(CKD) 7 (>60 ml/min/1.73 sqM); Potassium 3.8 mmol/L (3.5-5.1); Sodium 132 mmol/L (137-145)
[2023-06-08 05:39] LABS: ABG Base Excess 3.1 mmol/L; ABG HCO3 26 mmol/L (21-25); ABG PCO2 32 mmHg (35-45); ABG PH 7.52 (7.35-7.45); ABG PO2 68 mmHg (83-108); ABG TCO2 27 mmol/L (19-24); Allen Test Performed? Yes
--- NOTE | 2023-06-08 06:33 | XR ---
EXAMINATION TYPE: XR chest 1V portable DATE OF EXAM: 06/08/2023 COMPARISON: 06/07/2023 HISTORY: Tube placement and shortness of breath. TECHNIQUE: Single frontal view of the chest is obtained. FINDINGS: ET tube is 4.7 cm above the antwon and is essentially unchanged in position. There is an NG tube with in the stomach. There is a small right pleural effusion which has increased in the interval. There is persistent mild ly worsened left retrocardiac opacity obscuring the left hemidiaphragm consistent with effusion and p ossibly infiltrate or atelectasis as well. There is no pneumothorax. The osseous structures are intact IMPRESSION: 1. ET tube unchanged proximal 4.7 cm above the antwon. 2. Mildly worsening acute cardiopulmonary disease as described above.
--- NOTE | 2023-06-08 09:40 | P.PN ---
Subjective Patient is seen in follow-up for end-stage renal disease. She is maintained on hemodialysis on Saturday schedule. Received short treatment of dialysis yesterday with 1 L ultrafiltration. Scheduled to undergo another treatment today. Patient had cardiac arrest yesterday after ERCP and required epinephrine and atropine. Currently intubated. On Levophed. Vital signs are stable. On Levophed. General: Resting in bed. HEENT: Intubated. LUNGS: Scattered rhonchi. HEART: Rate and Rhythm are regular. ABDOMEN: Obese, no distention. EXTREMITITES: Trace edema. Objective - Vital Signs Vital signs: Vital Signs Temp 97.2 F L 06/08/23 07:00 Pulse 56 L 06/08/23 08:00 Resp 28 H 06/08/23 07:00 BP 96/30 06/08/23 00:00 Pulse Ox 95 06/08/23 07:00 FiO2 35 06/08/23 07:33 Intake & Output 06/07/23 06/08/23 06/08/23 18:59 06:59 18:59 Intake Total 819.44 844.691 Output Total 0 1400 0 Balance 819.44 -555.309 0 Weight 144 kg 137.6 kg Intake: IV 800 100 [id number] PMX 500 100 100 mg In Saline 1 100ml.bag @ 100 mls/hr IVPB Q8HR [facility] Rx#:[id number] Intake, IV Titration 19.44 344.691 Amount Norepinephrine 4 mg In 128.931 Sodium Chloride 0.9% 250 ml @ 0.03 MCG/KG/MIN 16. 459 mls/hr IV .[id number] [facility] Rx#:[id number] propofoL 1,000 mg In 19.44 215.760 Empty Bag 1 bag @ 15 MCG/ KG/MIN 8.64 mls/hr IV . [id number] [facility] Rx#:[id number] Hemodialysis 400 Output: Urine 0 0 0 Uretheral (Chen) 0 0 Hemodialysis 1400 Other: # Bowel Movements 0 0 ABP, PAP, CO, CI - Last Documented Arterial Blood Pressure 121/36 - Labs CBC & Chem 7: 06/08/23 04:25 06/08/23 04:25 Labs: Abnormal Lab Results - Last 24 Hours (Table) 06/07/23 06/07/23 06/07/23 Range/Units 06:18 11:21 13:30 RBC (3.80-5.40) m/uL Hgb (11.4-16.0) gm/dL Hct (34.0-46.0) % MCV (80.0-100.0) fL RDW (11.5-15.5) % Plt Count (150-450) k/uL Macrocytosis ABG pH (7.35-7.45) ABG pCO2 (35-45) mmHg ABG pO2 (83-108) mmHg ABG HCO3 (21-25) mmol/L ABG Total CO2 (19-24) mmol/L ABG O2 Saturation (94-97) % Sodium (137-145) mmol/L Carbon Dioxide (22-30) mmol/L Anion Gap 12.40 H (4.00-12.00) mmol/L BUN 28.0 H (9.0-27.0) mg/dL Creatinine 5.1 H (0.6-1.5) mg/dL Est GFR (CKD-EPI) 9 L (>=60) BUN/Creatinine Ratio 5.49 L (12.00-20.00) Ratio Glucose 163 H (70-110) mg/dL POC Glucose (mg/dL) 180 H 209 H (70-110) mg/dL Calcium 8.2 L (8.7-10.3) mg/dL Total Bilirubin 2.2 H (0.3-1.2) mg/dL GGT 331 H (0-38) U/L AST 54 H (13-35) U/L ALT 51 H (8-44) U/L Alkaline Phosphatase 518 H (41-126) U/L Total Protein 5.5 L (6.2-8.2) g/dL Albumin 2.4 L (3.8-4.9) g/dL Albumin/Globulin Ratio 0.77 L (1.60-3.17) Ratio 06/07/23 06/07/23 06/07/23 Range/Units 14:13 14:40 14:40 RBC 2.39 L (3.80-5.40) m/uL Hgb 8.2 L (11.4-16.0) gm/dL Hct 25.7 L (34.0-46.0) % MCV 107.5 H (80.0-100.0) fL RDW 17.6 H (11.5-15.5) % Plt Count 131 L (150-450) k/uL Macrocytosis Marked A ABG pH 7.47 H (7.35-7.45) ABG pCO2 (35-45) mmHg ABG pO2 306 H (83-108) mmHg ABG HCO3 (21-25) mmol/L ABG Total CO2 26 H (19-24) mmol/L ABG O2 Saturation 99.7 H (94-97) % Sodium 133 L (137-145) mmol/L Carbon Dioxide 21 L (22-30) mmol/L Anion Gap (4.00-12.00) mmol/L BUN 32 H (9.0-27.0) mg/dL Creatinine 5.14 H (0.6-1.5) mg/dL Est GFR (CKD-EPI) (>=60) BUN/Creatinine Ratio (12.00-20.00) Ratio Glucose 203 H (70-110) mg/dL POC Glucose (mg/dL) (70-110) mg/dL Calcium 7.8 L (8.7-10.3) mg/dL Total Bilirubin 2.9 H (0.3-1.2) mg/dL GGT (0-38) U/L AST 60 H (13-35) U/L ALT 49 H (8-44) U/L Alkaline Phosphatase 538 H (41-126) U/L Total Protein 5.7 L (6.2-8.2) g/dL Albumin 2.5 L (3.8-4.9) g/dL Albumin/Globulin Ratio (1.60-3.17) Ratio 06/07/23 06/07/23 06/07/23 Range/Units 18:49 21:59 23:34 RBC (3.80-5.40) m/uL Hgb (11.4-16.0) gm/dL Hct (34.0-46.0) % MCV (80.0-100.0) fL RDW (11.5-15.5) % Plt Count (150-450) k/uL Macrocytosis ABG pH (7.35-7.45) ABG pCO2 (35-45) mmHg ABG pO2 (83-108) mmHg ABG HCO3 (21-25) mmol/L ABG Total CO2 (19-24) mmol/L ABG O2 Saturation (94-97) % Sodium (137-145) mmol/L Carbon Dioxide (22-30) mmol/L Anion Gap (4.00-12.00) mmol/L BUN (9.0-27.0) mg/dL Creatinine (0.6-1.5) mg/dL Est GFR (CKD-EPI) (>=60) BUN/Creatinine Ratio (12.00-20.00) Ratio Glucose (70-110) mg/dL POC Glucose (mg/dL) 201 H 174 H 161 H (70-110) mg/dL Calcium (8.7-10.3) mg/dL Total Bilirubin (0.3-1.2) mg/dL GGT (0-38) U/L AST (13-35) U/L ALT (8-44) U/L Alkaline Phosphatase (41-126) U/L Total Protein (6.2-8.2) g/dL Albumin (3.8-4.9) g/dL Albumin/Globulin Ratio (1.60-3.17) Ratio 06/08/23 06/08/23 06/08/23 Range/Units 04:25 04:25 05:29 RBC 2.36 L (3.80-5.40) m/uL Hgb 8.3 L (11.4-16.0) gm/dL Hct 24.7 L (34.0-46.0) % MCV 104.6 H (80.0-100.0) fL RDW 18.2 H (11.5-15.5) % Plt Count 121 L (150-450) k/uL Macrocytosis ABG pH 7.52 H (7.35-7.45) ABG pCO2 32 L (35-45) mmHg ABG pO2 68 L (83-108) mmHg ABG HCO3 26 H (21-25) mmol/L ABG Total CO2 27 H (19-24) mmol/L ABG O2 Saturation (94-97) % Sodium 132 L (137-145) mmol/L Carbon Dioxide (22-30) mmol/L Anion Gap (4.00-12.00) mmol/L BUN 37 H (9.0-27.0) mg/dL Creatinine 5.73 H (0.6-1.5) mg/dL Est GFR (CKD-EPI) (>=60) BUN/Creatinine Ratio (12.00-20.00) Ratio Glucose 140 H (70-110) mg/dL POC Glucose (mg/dL) (70-110) mg/dL Calcium 8.0 L (8.7-10.3) mg/dL Total Bilirubin (0.3-1.2) mg/dL GGT (0-38) U/L AST (13-35) U/L ALT (8-44) U/L Alkaline Phosphatase (41-126) U/L Total Protein (6.2-8.2) g/dL Albumin (3.8-4.9) g/dL Albumin/Globulin Ratio (1.60-3.17) Ratio Assessment and Plan Plan: Assessment: 1. End-stage renal disease maintained on hemodialysis on Saturday schedule via AV graft. 2. Infiltrated AV graft. Seen by vascular surgery. Now being used. 3. Nausea and vomiting. CT showed no acute process. Status post laparoscopic cholecystectomy this admission. Also underwent ERCP with 3 small stones extracted. 4. Volume overload. 5. Hypotension maintained on midodrine. Now on Levophed. 6. Diabetes mellitus. 7. Chronic kidney disease mineral bone disease maintained on Renvela. 8. Anemia of chronic kidney disease. 9. Status postcardiac arrest. Plan: Hemodialysis today per her outpatient schedule. Add Aranesp. Maintain midodrine. Hold for systolic blood pressure greater than 110. Wean Levophed. Wean FiO2.
[2023-06-08] MEDS: PANTOPRAZOLE 40 MG/10 ML VIAL IV SCH (09:54)
--- NOTE | 2023-06-08 11:53 | P.PN ---
Subjective Progress Note Date: 06/08/23 HISTORY OF PRESENT ILLNESS: 68-year-old female 89 office patient who was hospitalized recently at [facility] for abscess and infected armpit area with slight recurrent abdominal discomfort with gallbladder dyskinesia at the time. Patient has end-stage renal disease on hemodialysis 3 times a week also has known to have type 2 diabetes, obstructive sleep apnea, hypertension, hyperlipidemia, hypothyroidism, she brought to the emergency department because of intractable nausea vomiting and diarrhea could not complete dialysis yesterday with worsening fever and chills with abdominal distention without any significant chest pain no bloody stool. Also had infiltrate her fistula which the reason why here hemodialysis was stopped early. With her current symptoms and the significant abnormal liver function test from her last hospitalization which patient was study in detail and found to have biliary hypokinesia via HIDA scan done last month. Patient liver function test this time came back with total bilirubin of 1.9 with AST of 414 and ALT 154 with alkaline phosphatase 224 also lipase of 315 with amylase of 49 which make the diagnosis of subacute pancreatitis as well. Also she continued to have significant anemia with hemoglobin of 8.1 platelet count 1 65, 000 patient creatinine was 6.5 with BUN of 39. Patient was seen and evaluated at the emergency department with above complaint COVID influenza and RSV were negative, CT of the abdomen and pelvis was performed again this time and showed no bowel obstruction with no acute finding identified to the amount of patient's symptoms of the pancreas visualized to be fine with small but prominent calcification on the gallbladder as a gallstone with no surrounding ill-defined fluid and fat stranding. Gallbladder ultrasound was performed again as well and showed hepatomegaly with heterogeneous hyper echoic appearance of the liver suggestive of diffuse fatty infiltrate with hepatocellular disease with no adjacent ascites, gallstones redemonstrated without ultrasound evidence of acute cholecystitis. Patient was hospitalized and consult at this point gastroenterology for her recurrent symptoms with nausea and vomiting to conclude the possibility of gallbladder and gallstone with abnormal liver function test. And also to help to make decision whether her gallbladder should be removed or not. Cardiology consultation for cardiology clearance which patient has no history of cardiac disease no change on her EKG at this point or any change in cardiac enzymes. Nephrology consultation was requested to continue hemodialysis. Also request consult of vascular for her fistula. 06/03/2023: Patient was evaluated through the weekend by cardiology, general surgery, nephrology. Was continued on hemodialysis, also continue on IV antibiotic with Rocephin and Flagyl due to slight concern of leukocytosis. 3 did not have any increased nausea or vomiting no diarrhea, liver function test still slightly bit elevated. Cardiology evaluated patient ordered an echocardiogram and and furthermore decided to do a nuclear stress test before clearing her for surgery. Nuclear stress test scheduled this morning if patient goes through with no problem she will be going for her cholecystectomy as an extent. 06/04/2023: Laboratory values showed slight increase in alkaline phosphatase along with total bilirubin make the possibility of having obstruction of the common bile with stone or other is much higher. Delay patient discharge at this point and should go for an MRCP initially if there is any finding consistent with stone or blockage of the common duct she might need to go for an ERCP to extract stone and stent the area. Will delay discharge till this is done and cleared in the meanwhile repeat labs again tomorrow. Patient hemodialysis days today which we will continue to do as an inpatient. 06/05/2023: Patient MRCP came back with several area of calcification in the common duct consistent with cholelithiasis. Patient will be seen gastroenterology for ERCP probably to extract the stone and probably do stent in the common duct. 06/06/2023: After finishing the MRCP and finding more calcification and possibly stone across the common duct patient liver enzymes continue to be elevated total bilirubin still at 2.8 right alk phos 541 AST 59 ALT 62, specially with the current findings will require to go for an ERCP and possible required to extract the stone and put a stent in the common duct. Apparently gastroenterology are planning to do this procedure on Saturday. Meanwhile patient is asymptomatic continue clear liquid diet and advance gradually and dialysis will be done today as well. 06/07/2023: Patient ended up going for her ERCP 3 stones were extracted through the procedure but shortly after procedure she coded and required resuscitation lasted for over a few minutes after giving her atropine patient pulse rate returned but she was intubated and transferred to the ICU at this point. Patient has been resting in the ICU after the current complication, family apparently were updated by gastroenterology along with hand gluer and slicer. Continue to do the complication currently patient is not conscious but resting comfortably i n the ICU. 06/08/2023: Patient remain in the ICU on mechanical ventilation, still on vasopressor, she will be going for dialysis today. Her level of responsiveness still limited. Labs today with hemoglobin is 8.3 liver function test were not done will add it to the lab done today. She is still seen pulmonary and cardiology she is still quite hypotensive with pulse rate is down remain on Levophed at this point try to keep her blood pressure systolic above 100. REVIEW OF SYSTEMS: CONSTITUTIONAL: Well-developed no acute respiratory distress. EYES: No icterus sclerae, no conjunctivitis. EARS, NOSE, MOUTH, THROAT, and FACE: No sore throat, lymphadenopathy, carotid bruits or deformity. RESPIRATORY: Slight shortness of breath no cough or wheezes.. CARDIOVASCULAR: Positive PND orthopnea palpitation no angina.. GASTROINTESTINAL: Positive abdominal pain with nausea vomiting diarrhea no constipation no acute gastrointestinal bleed no distention or masses.. GENITOURINARY: Decreased urine output she is on hemodialysis.. INTEGUMENT/BREAST: Negative for any muscular injury with mild osteoarthritis.. HEMATOLOGIC/LYMPHATIC: Chronic anemia and hematoma around the fistula graft.. MUSCULOSKELTAL: Negative for Myalgia or arthralgia. NEURLOGICAL: No LOC, Sz or syncope, blurred vision dizziness or abnormality.. BEHAVIORAL/PSYCH: Negative. ENDOCRINE: Negative. PHYSICAL EXAMINATION: General Appearance: Alert, cooperative, no distress, appears stated age. Neck HEENT: Supple, no lymphadenopathy, no thyroid enlargement, no carotid b ruits. Lungs: Positive fine rhonchi in the bases with crackles mostly limited area on the right side no wheezes. Chest Wall: Decreased expansion with deep inspiration no tenderness and no deformity was found on exam, no costochondral pain or discomfort. Heart: Regular rate and rhythm, S1, S2 normal, no murmur, rub or gallop. Back: Symmetric, no curvature, ROM normal, no CVA tenderness. Abdomen: Soft with slight tenderness in the mid epigastric and right upper quadrant area no rebound or rigidity slight hepatomegaly not able to feel any splenomegaly at this point and very limited amount of ascites. Extremities: Trace edema, her fistula graft in the left side has slight hematoma on the side. Pulses: 2+ and symmetric. Skin: Skin color, texture, tugor normal, no rashes or lesions. Neurologic: Alert oriented x3 cranial nerves II through XII intact, no motor deficit, no abnormal balance or gait. ASSESSMENT AND PLAN: _Postcardiac arrest not a clear etiology could be PEA or arrhythmia or could be aggravation from the ERCP specially with ascending cholangitis. Patient still covered currently continue vent management continue to watch for any arrhythmia. Still bradycardic. _Acute hypoxic respiratory failure: Remain on mechanical ventilation currently. Blood gas was done today still been watched by hand gluer and slicer. _Obstructive common duct with gallstone post 3 stone extracted via ERCP along with skin neurectomy. _Acute on subacute pancreatitis now retrospectively This is a result of gallstone passed into the common duct and blocked the pancreatic duct causing pancreatitis. Fortunately pancreatitis is resolved at this point but continue to see more evidence of common duct stone. _Gallstone without any acute cholecystitis: With the possibility of possible common duct stone passing black the pancreatic duct causing subacute pancreatitis patient will remain on antibiotic for treating this? Of ascending cholangitis till infection is clear out till the gallbladder is out. Again after taking her gallbladder out doing an MRCP is showing some common duct stone. ERCP will be needed to extract the stone. _gallbladder dyskinesia with recurrent symptoms of gallstone: Post laparoscopic cholecystectomy successful except still have some stone in the common duct. _Elevated liver function test again following surgery: Post 3 stent removed with ERCP we will repeat liver function test again. _ Common duct stone: Just had 3 stone removed of the common duct via ERCP. _End-stage renal disease: On hemodialysis 3 times a week resume dialysis. Resume dialysis continue phosphorus stabilizing medication and vitamin D. _Hypertension: For patient to be maintained on medication was doing midodrine before now the blood pressure being low still on vasopressor with Levophed. _Hypothyroidism: Continue levothyroxine 225 mcg daily on Saturday the rest of the week is on 50 mcg. _Type 2 diabetes: Continue Humalog 22 units AC meals still on Lantus 23 units twice daily as well, continue Accu-Chek with sliding scale coverage. _Chronic anemia: Iron deficiency from end-stage renal disease continue to watch hemoglobin and iron level continue Procrit. Complication: She is remain on mechanical ventilation ICU still on vasopressor her level of responsiveness still limited and she will be going for hemodialysis today. Objective - Vital Signs Vital signs: Vital Signs Temp 97.2 F L 06/08/23 07:00 Pulse 56 L 06/08/23 08:00 Resp 28 H 06/08/23 07:00 BP 96/30 06/08/23 00:00 Pulse Ox 95 06/08/23 07:00 FiO2 35 06/08/23 07:33 Intake & Output 06/07/23 06/08/23 06/08/23 18:59 06:59 18:59 Intake Total 819.44 844.691 Output Total 0 1400 0 Balance 819.44 -555.309 0 Weight 144 kg 137.6 kg Intake: IV 800 100 metroNIDAZOLE-NS PMX 500 100 100 mg In Saline 1 100ml.bag @ 100 mls/hr IVPB Q8HR [facility] Rx#:[id number] Intake, IV Titration 19.44 344.691 Amount Norepinephrine 4 mg In 128.931 Sodium Chloride 0.9% 250 ml @ 0.03 MCG/KG/MIN 16. 459 mls/hr IV .[id number] [facility] Rx#:[id number] propofoL 1,000 mg In 19.44 215.760 Empty Bag 1 bag @ 15 MCG/ KG/MIN 8.64 mls/hr IV . [id number] [facility] Rx#:[id number] Hemodialysis 400 Output: Urine 0 0 0 Uretheral (Chen) 0 0 Hemodialysis 1400 Other: # Bowel Movements 0 0 ABP, PAP, CO, CI - Last Documented Arterial Blood Pressure 121/36 - Labs CBC & Chem 7: 06/08/23 04:25 06/08/23 04:25 Labs: Abnormal Lab Results - Last 24 Hours (Table) 06/07/23 06/07/23 06/07/23 Range/Units 06:18 11:21 13:30 RBC (3.80-5.40) m/uL Hgb (11.4-16.0) gm/dL Hct (34.0-46.0) % MCV (80.0-100.0) fL RDW (11.5-15.5) % Plt Count (150-450) k/uL Macrocytosis ABG pH (7.35-7.45) ABG pCO2 (35-45) mmHg ABG pO2 (83-108) mmHg ABG HCO3 (21-25) mmol/L ABG Total CO2 (19-24) mmol/L ABG O2 Saturation (94-97) % Sodium (137-145) mmol/L Carbon Dioxide (22-30) mmol/L Anion Gap 12.40 H (4.00-12.00) mmol/L BUN 28.0 H (9.0-27.0) mg/dL Creatinine 5.1 H (0.6-1.5) mg/dL Est GFR (CKD-EPI) 9 L (>=60) BUN/Creatinine Ratio 5.49 L (12.00-20.00) Ratio Glucose 163 H (70-110) mg/dL POC Glucose (mg/dL) 180 H 209 H (70-110) mg/dL Calcium 8.2 L (8.7-10.3) mg/dL Total Bilirubin 2.2 H (0.3-1.2) mg/dL GGT 331 H (0-38) U/L AST 54 H (13-35) U/L ALT 51 H (8-44) U/L Alkaline Phosphatase 518 H (41-126) U/L Total Protein 5.5 L (6.2-8.2) g/dL Albumin 2.4 L (3.8-4.9) g/dL Albumin/Globulin Ratio 0.77 L (1.60-3.17) Ratio 06/07/23 06/07/23 06/07/23 Range/Units 14:13 14:40 14:40 RBC 2.39 L (3.80-5.40) m/uL Hgb 8.2 L (11.4-16.0) gm/dL Hct 25.7 L (34.0-46.0) % MCV 107.5 H (80.0-100.0) fL RDW 17.6 H (11.5-15.5) % Plt Count 131 L (150-450) k/uL Macrocytosis Marked A ABG pH 7.47 H (7.35-7.45) ABG pCO2 (35-45) mmHg ABG pO2 306 H (83-108) mmHg ABG HCO3 (21-25) mmol/L ABG Total CO2 26 H (19-24) mmol/L ABG O2 Saturation 99.7 H (94-97) % Sodium 133 L (137-145) mmol/L Carbon Dioxide 21 L (22-30) mmol/L Anion Gap (4.00-12.00) mmol/L BUN 32 H (9.0-27.0) mg/dL Creatinine 5.14 H (0.6-1.5) mg/dL Est GFR (CKD-EPI) (>=60) BUN/Creatinine Ratio (12.00-20.00) Ratio Glucose 203 H (70-110) mg/dL POC Glucose (mg/dL) (70-110) mg/dL Calcium 7.8 L (8.7-10.3) mg/dL Total Bilirubin 2.9 H (0.3-1.2) mg/dL GGT (0-38) U/L AST 60 H (13-35) U/L ALT 49 H (8-44) U/L Alkaline Phosphatase 538 H (41-126) U/L Total Protein 5.7 L (6.2-8.2) g/dL Albumin 2.5 L (3.8-4.9) g/dL Albumin/Globulin Ratio (1.60-3.17) Ratio 06/07/23 06/07/23 06/07/23 Range/Units 18:49 21:59 23:34 RBC (3.80-5.40) m/uL Hgb (11.4-16.0) gm/dL Hct (34.0-46.0) % MCV (80.0-100.0) fL RDW (11.5-15.5) % Plt Count (150-450) k/uL Macrocytosis ABG pH (7.35-7.45) ABG pCO2 (35-45) mmHg ABG pO2 (83-108) mmHg ABG HCO3 (21-25) mmol/L ABG Total CO2 (19-24) mmol/L ABG O2 Saturation (94-97) % Sodium (137-145) mmol/L Carbon Dioxide (22-30) mmol/L Anion Gap (4.00-12.00) mmol/L BUN (9.0-27.0) mg/dL Creatinine (0.6-1.5) mg/dL Est GFR (CKD-EPI) (>=60) BUN/Creatinine Ratio (12.00-20.00) Ratio Glucose (70-110) mg/dL POC Glucose (mg/dL) 201 H 174 H 161 H (70-110) mg/dL Calcium (8.7-10.3) mg/dL Total Bilirubin (0.3-1.2) mg/dL GGT (0-38) U/L AST (13-35) U/L ALT (8-44) U/L Alkaline Phosphatase (41-126) U/L Total Protein (6.2-8.2) g/dL Albumin (3.8-4.9) g/dL Albumin/Globulin Ratio (1.60-3.17) Ratio 06/08/23 06/08/23 06/08/23 Range/Units 04:25 04:25 05:29 RBC 2.36 L (3.80-5.40) m/uL Hgb 8.3 L (11.4-16.0) gm/dL Hct 24.7 L (34.0-46.0) % MCV 104.6 H (80.0-100.0) fL RDW 18.2 H (11.5-15.5) % Plt Count 121 L (150-450) k/uL Macrocytosis ABG pH 7.52 H (7.35-7.45) ABG pCO2 32 L (35-45) mmHg ABG pO2 68 L (83-108) mmHg ABG HCO3 26 H (21-25) mmol/L ABG Total CO2 27 H (19-24) mmol/L ABG O2 Saturation (94-97) % Sodium 132 L (137-145) mmol/L Carbon Dioxide (22-30) mmol/L Anion Gap (4.00-12.00) mmol/L BUN 37 H (9.0-27.0) mg/dL Creatinine 5.73 H (0.6-1.5) mg/dL Est GFR (CKD-EPI) (>=60) BUN/Creatinine Ratio (12.00-20.00) Ratio Glucose 140 H (70-110) mg/dL POC Glucose (mg/dL) (70-110) mg/dL Calcium 8.0 L (8.7-10.3) mg/dL Total Bilirubin (0.3-1.2) mg/dL GGT (0-38) U/L AST (13-35) U/L ALT (8-44) U/L Alkaline Phosphatase (41-126) U/L Total Protein (6.2-8.2) g/dL Albumin (3.8-4.9) g/dL Albumin/Globulin Ratio (1.60-3.17) Ratio
--- NOTE | 2023-06-08 11:58 | P.PN ---
Subjective Progress Note Date: 06/08/23 No acute events overnight. Patient remains intubated and sedated. No fevers or chills. Nursing staff. No bowel movement per nursing staff Objective - Vital Signs Vital signs: Vital Signs Temp 98.1 F 06/08/23 08:00 Pulse 52 L 06/08/23 11:15 Resp 28 H 06/08/23 11:00 BP 108/58 06/08/23 11:00 Pulse Ox 97 06/08/23 11:00 FiO2 35 06/08/23 11:13 Intake & Output 06/07/23 06/08/23 06/08/23 18:59 06:59 18:59 Intake Total 819.44 844.691 223.152 Output Total 0 1450 100 Balance 819.44 -605.309 123.152 Weight 144 kg 137.6 kg Intake: IV 800 100 150 cefTRIAXone 2 gm In 50 Sodium Chloride 0.9% 50 ml @ 100 mls/hr IVPB Q24HR [facility] Rx#:[id number] metroNIDAZOLE-NS PMX 500 100 100 100 mg In Saline 1 100ml.bag @ 100 mls/hr IVPB Q8HR [facility] Rx#:[id number] Intake, IV Titration 19.44 344.691 73.152 Amount Norepinephrine 4 mg In 128.931 Sodium Chloride 0.9% 250 ml @ 0.03 MCG/KG/MIN 16. 459 mls/hr IV .[id number] [facility] Rx#:[id number] propofoL 1,000 mg In 19.44 215.760 73.152 Empty Bag 1 bag @ 15 MCG/ KG/MIN 8.64 mls/hr IV . [id number] [facility] Rx#:[id number] Hemodialysis 400 Output: Gastric Drainage 50 100 Urine 0 0 0 Uretheral (Chen) 0 0 Hemodialysis 1400 Other: # Bowel Movements 0 0 0 ABP, PAP, CO, CI - Last Documented Arterial Blood Pressure 137/45 - Exam Gen: Intubated and sedated Pulm: mechanically ventillated Abd: soft, non-tender, non-distended. No guarding/rebound/rigidity Incisions: C/D/I Extrem: no edema seen - Labs CBC & Chem 7: 06/08/23 04:25 06/08/23 04:25 Labs: Abnormal Lab Results - Last 24 Hours (Table) 06/07/23 06/07/23 06/07/23 Range/Units 06:18 13:30 14:13 RBC (3.80-5.40) m/uL Hgb (11.4-16.0) gm/dL Hct (34.0-46.0) % MCV (80.0-100.0) fL RDW (11.5-15.5) % Plt Count (150-450) k/uL Macrocytosis ABG pH 7.47 H (7.35-7.45) ABG pCO2 (35-45) mmHg ABG pO2 306 H (83-108) mmHg ABG HCO3 (21-25) mmol/L ABG Total CO2 26 H (19-24) mmol/L ABG O2 Saturation 99.7 H (94-97) % Sodium (137-145) mmol/L Carbon Dioxide (22-30) mmol/L Anion Gap 12.40 H (4.00-12.00) mmol/L BUN 28.0 H (9.0-27.0) mg/dL Creatinine 5.1 H (0.6-1.5) mg/dL Est GFR (CKD-EPI) 9 L (>=60) BUN/Creatinine Ratio 5.49 L (12.00-20.00) Ratio Glucose 163 H (70-110) mg/dL POC Glucose (mg/dL) 209 H (70-110) mg/dL Calcium 8.2 L (8.7-10.3) mg/dL Total Bilirubin 2.2 H (0.3-1.2) mg/dL GGT 331 H (0-38) U/L AST 54 H (13-35) U/L ALT 51 H (8-44) U/L Alkaline Phosphatase 518 H (41-126) U/L Total Protein 5.5 L (6.2-8.2) g/dL Albumin 2.4 L (3.8-4.9) g/dL Albumin/Globulin Ratio 0.77 L (1.60-3.17) Ratio 06/07/23 06/07/23 06/07/23 Range/Units 14:40 14:40 18:49 RBC 2.39 L (3.80-5.40) m/uL Hgb 8.2 L (11.4-16.0) gm/dL Hct 25.7 L (34.0-46.0) % MCV 107.5 H (80.0-100.0) fL RDW 17.6 H (11.5-15.5) % Plt Count 131 L (150-450) k/uL Macrocytosis Marked A ABG pH (7.35-7.45) ABG pCO2 (35-45) mmHg ABG pO2 (83-108) mmHg ABG HCO3 (21-25) mmol/L ABG Total CO2 (19-24) mmol/L ABG O2 Saturation (94-97) % Sodium 133 L (137-145) mmol/L Carbon Dioxide 21 L (22-30) mmol/L Anion Gap (4.00-12.00) mmol/L BUN 32 H (9.0-27.0) mg/dL Creatinine 5.14 H (0.6-1.5) mg/dL Est GFR (CKD-EPI) (>=60) BUN/Creatinine Ratio (12.00-20.00) Ratio Glucose 203 H (70-110) mg/dL POC Glucose (mg/dL) 201 H (70-110) mg/dL Calcium 7.8 L (8.7-10.3) mg/dL Total Bilirubin 2.9 H (0.3-1.2) mg/dL GGT (0-38) U/L AST 60 H (13-35) U/L ALT 49 H (8-44) U/L Alkaline Phosphatase 538 H (41-126) U/L Total Protein 5.7 L (6.2-8.2) g/dL Albumin 2.5 L (3.8-4.9) g/dL Albumin/Globulin Ratio (1.60-3.17) Ratio 06/07/23 06/07/23 06/08/23 Range/Units 21:59 23:34 04:25 RBC 2.36 L (3.80-5.40) m/uL Hgb 8.3 L (11.4-16.0) gm/dL Hct 24.7 L (34.0-46.0) % MCV 104.6 H (80.0-100.0) fL RDW 18.2 H (11.5-15.5) % Plt Count 121 L (150-450) k/uL Macrocytosis ABG pH (7.35-7.45) ABG pCO2 (35-45) mmHg ABG pO2 (83-108) mmHg ABG HCO3 (21-25) mmol/L ABG Total CO2 (19-24) mmol/L ABG O2 Saturation (94-97) % Sodium (137-145) mmol/L Carbon Dioxide (22-30) mmol/L Anion Gap (4.00-12.00) mmol/L BUN (9.0-27.0) mg/dL Creatinine (0.6-1.5) mg/dL Est GFR (CKD-EPI) (>=60) BUN/Creatinine Ratio (12.00-20.00) Ratio Glucose (70-110) mg/dL POC Glucose (mg/dL) 174 H 161 H (70-110) mg/dL Calcium (8.7-10.3) mg/dL Total Bilirubin (0.3-1.2) mg/dL GGT (0-38) U/L AST (13-35) U/L ALT (8-44) U/L Alkaline Phosphatase (41-126) U/L Total Protein (6.2-8.2) g/dL Albumin (3.8-4.9) g/dL Albumin/Globulin Ratio (1.60-3.17) Ratio 24 06/08/23 Range/Units 04:25 05:29 RBC (3.80-5.40) m/uL Hgb (11.4-16.0) gm/dL Hct (34.0-46.0) % MCV (80.0-100.0) fL RDW (11.5-15.5) % Plt Count (150-450) k/uL Macrocytosis ABG pH 7.52 H (7.35-7.45) ABG pCO2 32 L (35-45) mmHg ABG pO2 68 L (83-108) mmHg ABG HCO3 26 H (21-25) mmol/L ABG Total CO2 27 H (19-24) mmol/L ABG O2 Saturation (94-97) % Sodium 132 L (137-145) mmol/L Carbon Dioxide (22-30) mmol/L Anion Gap (4.00-12.00) mmol/L BUN 37 H (9.0-27.0) mg/dL Creatinine 5.73 H (0.6-1.5) mg/dL Est GFR (CKD-EPI) (>=60) BUN/Creatinine Ratio (12.00-20.00) Ratio Glucose 140 H (70-110) mg/dL POC Glucose (mg/dL) (70-110) mg/dL Calcium 8.0 L (8.7-10.3) mg/dL Total Bilirubin (0.3-1.2) mg/dL GGT (0-38) U/L AST (13-35) U/L ALT (8-44) U/L Alkaline Phosphatase (41-126) U/L Total Protein (6.2-8.2) g/dL Albumin (3.8-4.9) g/dL Albumin/Globulin Ratio (1.60-3.17) Ratio Microbiology - Last 24 Hours (Table) 06/07/23 14:20 Gram Stain - Preliminary Sputum Assessment and Plan Assessment: 68F who is s/p lap ric and subsequent ERCP Plan: -Diet as tolerated -Care per icu -Trend LFT -PRN pain and nausea control -No further general surgery intervention Angel Simpson MD General Surgery
--- NOTE | 2023-06-08 12:33 | P.PN ---
Subjective Progress Note Date: 06/08/23 This is a 68-year-old female patient was seen in the endoscopy room as the patient was undergoing an ERCP for choledocholithiasis patient also underwent biliary sphincterectomy and balloon extraction of a total of 3 small stones. Noted the patient presented to the hospital approximately a week ago for e pigastric pain along with nausea and vomiting and subsequently patient was found to have elevated and in the bilirubin and transaminitis. CAT scan of the abdomen pelvis showed gallstones and the patient underwent a cholecystectomy approximately 2 days ago. The patient continues to have issues with pain and elevation in LFTs. Based on that, the patient underwent an ERCP today. Note that following the procedure, the patient was being flipped around and end-tidal CO2 was found to be extremely low and subsequently the patient was found to be unresponsive. At that time the patient was still intubated. She was blue. She was pulseless. The rhythm could not be established as the patient did not have the leads on her chest. Immediately, CPR was initiated and the patient was given 1 round of epinephrine and subsequently a dose of epinephrine for bradycardia. She received CPR for total of 2 to 3 minutes and subsequently there was return of spontaneous circulation and a blood pressure. The patient was kept intubated and patient got transferred to the intensive care unit. She is a morbidly obese female patient who weighs 100 on 144 kg and she has a body mass index of 56.2. I saw the patient in the endoscopy room and I also examined the patient in the ICU. The chest x-ray that was done showed cardiomegaly with mild pulm vessel congestion. He did she was in a good location. Inserted triple-lumen catheter and arterial line on this patient for blood pressure monitoring and hemodynamic support. At this point in time, the patient is normotensive. Blood gas showed a pH of 7.47 with a pCO2 of 35 and a pO2 of 316. This was on FiO2 of 100% with a PEEP of 5 and a total volume of 400 with a rate of 28. Morning c blood work showed a white cell count of 7.5 with a hemoglobin 8.2. Sodium was at 132, serum bicarb was at 23 with a BUN of 31 and a creatinine of 4.5. The patient also had a gamma GT of 331, AST of 80, ALT of 52, alkaline phosphatase of 506 and the patient's bilirubin was at 2.8. Lipase level was at 97. Note that the patient has end-stage renal disease on HD undergoes hemodialysis. The last hemodialysis session was yesterday with a total of 2 L of fluid removed. She also has hypertension, hypothyroidism, diabetes mellitus type 2 and the patient has been maintained on Humalog 22 units with meals and Lantus 23 units twice a day along with a sliding scale coverage. The patient has issues with chronic anemia. No history of any previous cardiac disease to my knowledge. A cardiac stress test was done preoperatively on 06/03/2023 showed no evidence of any reversible ischemia and the patient had an ejection fraction of 40%. Noted the patient surgery was done on 06/03/2023 and the patient underwent a laparoscopic cholecystectomy. Surgical wound site is dry clean and intact at this point in time. On today's evaluation of 06/08/2023, the patient remains intubated on mechanical ventilator. The patient is postcardiac arrest and this was a brief cardiopulmonary arrest as discussed earlier. This morning, the patient is adequately sedated propofol running at 30 mcg/kg/min. IV fluids are currently at KVO. She remains on mechanical ventilator, assist-control mode with rate of 28, tidal volume of 400, FiO2 of 40% with a PEEP of 5. Blood gas shows a pH of 7.52 with a pCO2 of 32 and pO2 of 68. The patient underwent a bout of hemodialysis yesterday with a total of 1 l of ultrafiltration and repeat chest x-ray from today is still showing worsening interstitial edema and the patient has a small right-sided pleural effusion and persistent left retrocardiac opacity consistent with pleural effusion. The patient is going to undergo another session of hemodialysis today. Hemodynamically, the patient is stable and she is on no pressors. IV fluids at KVO. No urine output. The blood work shows an obese, 7.9, hemoglobin is 8.3 and platelet count of 121. Sodium is at 132, BUN is at 37 with a creatinine of 5.7 and his sugar is at 140. Troponin from yesterday was 0.026. The patient remains on Rocephin and Flagyl. The patient is also on 32 units of Levemir insulin twice a day in addition to NovoLog sliding scale coverage. General surgery is on the case. Nephrology on the case. LFTs from today are still pending. Objective - Vital Signs Vital signs: Vital Signs Temp 97.2 F L 06/08/23 07:00 Pulse 56 L 06/08/23 08:00 Resp 28 H 06/08/23 07:00 BP 96/30 06/08/23 00:00 Pulse Ox 95 06/08/23 07:00 FiO2 35 06/08/23 07:33 Intake & Output 06/07/23 06/08/23 06/08/23 18:59 06:59 18:59 Intake Total 819.44 844.691 Output Total 0 1400 0 Balance 819.44 -555.309 0 Weight 144 kg 137.6 kg Intake: IV 800 100 metroNIDAZOLE-NS PMX 500 100 100 mg In Saline 1 100ml.bag @ 100 mls/hr IVPB Q8HR [facility] Rx#:[id number] Intake, IV Titration 19.44 344.691 Amount Norepinephrine 4 mg In 128.931 Sodium Chloride 0.9% 250 ml @ 0.03 MCG/KG/MIN 16. 459 mls/hr IV .[id number] [facility] Rx#:[id number] propofoL 1,000 mg In 19.44 215.760 Empty Bag 1 bag @ 15 MCG/ KG/MIN 8.64 mls/hr IV . [id number] [facility] Rx#:[id number] Hemodialysis 400 Output: Urine 0 0 0 Uretheral (Chen) 0 0 Hemodialysis 1400 Other: # Bowel Movements 0 0 ABP, PAP, CO, CI - Last Documented Arterial Blood Pressure 121/36 - Exam Patient is currently intubated and on mechanical ventilator. Remains sedated since her procedure. Has not started on propofol yet. Orotracheal and orogastric tube are both in place. She is morbidly obese with a BMI of 36.2. Head exam was generally normal. There was no scleral icterus or corneal arcus. Mucous membranes were moist. Neck was supple and without jugular venous distension, thyromegaly, or carotid bruits. Carotids were easily palpable bilaterally. There was no adenopathy. Lung sounds are diminished and the patient is scattered rhonchi heard throughout the lung ricks bilaterally. Heart sounds are irregular, positive S1-S2 without any significant murmurs appreciated. Overall heart sounds are distant. Abdominal exam revealed normal bowel sounds. The abdomen was soft, non-tender, and without masses, organomegaly, or appreciable enlargement of the abdominal aorta. Patient is morbidly obese and the organs cannot be accurately palpated. Examination of the extremities revealed easily palpable radial, femoral and pedal pulses. There was no cyanosis, clubbing or edema. Examination of the skin revealed no evidence of significant rashes, suspicious appearing nevi or other concerning lesions. Neurologically, the patient is still unresponsive. Not following any commands. Withdraws to painful stimulation. - Labs CBC & Chem 7: 06/08/23 04:25 06/08/23 04:25 Labs: Abnormal Lab Results - Last 24 Hours (Table) 06/07/23 06/07/23 06/07/23 Range/Units 06:18 11:21 13:30 RBC (3.80-5.40) m/uL Hgb (11.4-16.0) gm/dL Hct (34.0-46.0) % MCV (80.0-100.0) fL RDW (11.5-15.5) % Plt Count (150-450) k/uL Macrocytosis ABG pH (7.35-7.45) ABG pCO2 (35-45) mmHg ABG pO2 (83-108) mmHg ABG HCO3 (21-25) mmol/L ABG Total CO2 (19-24) mmol/L ABG O2 Saturation (94-97) % Sodium (137-145) mmol/L Carbon Dioxide (22-30) mmol/L Anion Gap 12.40 H (4.00-12.00) mmol/L BUN 28.0 H (9.0-27.0) mg/dL Creatinine 5.1 H (0.6-1.5) mg/dL Est GFR (CKD-EPI) 9 L (>=60) BUN/Creatinine Ratio 5.49 L (12.00-20.00) Ratio Glucose 163 H (70-110) mg/dL POC Glucose (mg/dL) 180 H 209 H (70-110) mg/dL Calcium 8.2 L (8.7-10.3) mg/dL Total Bilirubin 2.2 H (0.3-1.2) mg/dL GGT 331 H (0-38) U/L AST 54 H (13-35) U/L ALT 51 H (8-44) U/L Alkaline Phosphatase 518 H (41-126) U/L Total Protein 5.5 L (6.2-8.2) g/dL Albumin 2.4 L (3.8-4.9) g/dL Albumin/Globulin Ratio 0.77 L (1.60-3.17) Ratio 06/07/23 06/07/23 06/07/23 Range/Units 14:13 14:40 14:40 RBC 2.39 L (3.80-5.40) m/uL Hgb 8.2 L (11.4-16.0) gm/dL Hct 25.7 L (34.0-46.0) % MCV 107.5 H (80.0-100.0) fL RDW 17.6 H (11.5-15.5) % Plt Count 131 L (150-450) k/uL Macrocytosis Marked A ABG pH 7.47 H (7.35-7.45) ABG pCO2 (35-45) mmHg ABG pO2 306 H (83-108) mmHg ABG HCO3 (21-25) mmol/L ABG Total CO2 26 H (19-24) mmol/L ABG O2 Saturation 99.7 H (94-97) % Sodium 133 L (137-145) mmol/L Carbon Dioxide 21 L (22-30) mmol/L Anion Gap (4.00-12.00) mmol/L BUN 32 H (9.0-27.0) mg/dL Creatinine 5.14 H (0.6-1.5) mg/dL Est GFR (CKD-EPI) (>=60) BUN/Creatinine Ratio (12.00-20.00) Ratio Glucose 203 H (70-110) mg/dL POC Glucose (mg/dL) (70-110) mg/dL Calcium 7.8 L (8.7-10.3) mg/dL Total Bilirubin 2.9 H (0.3-1.2) mg/dL GGT (0-38) U/L AST 60 H (13-35) U/L ALT 49 H (8-44) U/L Alkaline Phosphatase 538 H (41-126) U/L Total Protein 5.7 L (6.2-8.2) g/dL Albumin 2.5 L (3.8-4.9) g/dL Albumin/Globulin Ratio (1.60-3.17) Ratio 06/07/23 06/07/23 06/07/23 Range/Units 18:49 21:59 23:34 RBC (3.80-5.40) m/uL Hgb (11.4-16.0) gm/dL Hct (34.0-46.0) % MCV (80.0-100.0) fL RDW (11.5-15.5) % Plt Count (150-450) k/uL Macrocytosis ABG pH (7.35-7.45) ABG pCO2 (35-45) mmHg ABG pO2 (83-108) mmHg ABG HCO3 (21-25) mmol/L ABG Total CO2 (19-24) mmol/L ABG O2 Saturation (94-97) % Sodium (137-145) mmol/L Carbon Dioxide (22-30) mmol/L Anion Gap (4.00-12.00) mmol/L BUN (9.0-27.0) mg/dL Creatinine (0.6-1.5) mg/dL Est GFR (CKD-EPI) (>=60) BUN/Creatinine Ratio (12.00-20.00) Ratio Glucose (70-110) mg/dL POC Glucose (mg/dL) 201 H 174 H 161 H (70-110) mg/dL Calcium (8.7-10.3) mg/dL Total Bilirubin (0.3-1.2) mg/dL GGT (0-38) U/L AST (13-35) U/L ALT (8-44) U/L Alkaline Phosphatase (41-126) U/L Total Protein (6.2-8.2) g/dL Albumin (3.8-4.9) g/dL Albumin/Globulin Ratio (1.60-3.17) Ratio 06/08/23 06/08/23 06/08/23 Range/Units 04:25 04:25 05:29 RBC 2.36 L (3.80-5.40) m/uL Hgb 8.3 L (11.4-16.0) gm/dL Hct 24.7 L (34.0-46.0) % MCV 104.6 H (80.0-100.0) fL RDW 18.2 H (11.5-15.5) % Plt Count 121 L (150-450) k/uL Macrocytosis ABG pH 7.52 H (7.35-7.45) ABG pCO2 32 L (35-45) mmHg ABG pO2 68 L (83-108) mmHg ABG HCO3 26 H (21-25) mmol/L ABG Total CO2 27 H (19-24) mmol/L ABG O2 Saturation (94-97) % Sodium 132 L (137-145) mmol/L Carbon Dioxide (22-30) mmol/L Anion Gap (4.00-12.00) mmol/L BUN 37 H (9.0-27.0) mg/dL Creatinine 5.73 H (0.6-1.5) mg/dL Est GFR (CKD-EPI) (>=60) BUN/Creatinine Ratio (12.00-20.00) Ratio Glucose 140 H (70-110) mg/dL POC Glucose (mg/dL) (70-110) mg/dL Calcium 8.0 L (8.7-10.3) mg/dL Total Bilirubin (0.3-1.2) mg/dL GGT (0-38) U/L AST (13-35) U/L ALT (8-44) U/L Alkaline Phosphatase (41-126) U/L Total Protein (6.2-8.2) g/dL Albumin (3.8-4.9) g/dL Albumin/Globulin Ratio (1.60-3.17) Ratio Assessment and Plan Plan: Acute cardiac arrest, exact circumstances are not clear. The patient completed the ERCP and following that, the patient was found to be below and had no pulses. Initial cardiac rhythm has not been established. It is possible that the patient was in a PEA rhythm. The patient receives CPR for a total of 2 to 3 minutes. The patient received a round of epinephrine and she was given atropine and there was return of spontaneous circulation. The patient was already intubated on the mechanical ventilator. The patient remains intubated during the course of the resuscitation. The patient remains intubated on mechanical ventilator. The patient is hemodynamically stable at this point in time. Given a brief sedation holiday the patient was quite arousable. Acute hypoxic respiratory failure secondary to above, currently intubated on mechanical ventilator. Adequate oxygenation on the follow-up blood gases chest x-ray still showing increase in volume status and overload and small bilateral pleural effusions Acute cholecystitis and the patient is postcholecystectomy that was done on 06/03/2023 Choledocholithiasis post ERCP done on 06/07/2023 with sphincterectomy and extraction of 3 small stones Morbid obesity BMI 56.2 Diabetes mellitus type 2, currently on Levemir insulin 30 units twice daily and NovoLog 22 units with meals and sliding scale coverage. History of hypertension History of hypothyroidism Abnormal LFTs following cholecystectomy secondary choledocholithiasis. Rule out underlying component of cholangitis in addition. The patient has been covered with IV Rocephin and Flagyl throughout her current hospitalization End-stage renal disease on hemodialysis and the patient is a AV fistula in the right upper extremity. Anemia of chronic disease Plan Keep the patient intubated on mechanical ventilator Will perform another dialysis session today with a larger volume of ultrafiltration Chest x-ray showing increased interstitial markings bilaterally and the patient may be an volume overload/CHF. Will proceed with another session of hemodialysis today No need for pressors and lites have been established Continue IV Rocephin and Flagyl Monitor liver function test post ERCP, awaiting LFTs from today Obtain an echocardiogram, noted the cardiac status has been negative Start the patient on low-dose enteral feeding for nutritional support. The patient will continue also Levemir insulin 32 units twice a day. The patient on propofol for sedation this will be continued for the next 24 hours. Coreg 25 mg p.o. twice a day, Natacha updrafts IV Protonix Synthroid and this will be resumed at the same dose. Lovenox 30 mg subcu for DVT prophylaxis Condition is critical and will continue to follow make further recommendations based on her progress. Family will be updated on her condition. There is a critical care evaluation that was done in more than 30 minutes. Time with Patient: Greater than 30
[2023-06-08 13:01] LABS: Glucose,Whole Blood 93 mg/dL (70-110)
[2023-06-08 14:19] LABS: Magnesium 2.1 mg/dL (1.6-2.3)
--- NOTE | 2023-06-08 15:50 | P.PN ---
Subjective HISTORY OF PRESENT ILLNESS: This is a 68-year-old female with no previous rn transplant, does not have cardiac history. She has a past medical history of end-stage renal disease on hemodialysis, diabetes mellitus, hypertension, hyperlipidemia, hypothyroidism, obstructive sleep apnea on CPAP. We have been asked to evaluate patient for CHF. Patient states that she had nausea vomiting diarrhea could not complete her dialysis treatment she also had chills. Abdominal distention. And dizziness. She denies having any chest pain. She denies having any blood in her stools. She states she did have some shortness of breath because she did not finish her dialysis treatment. She states she is a non-smoker. No lower extremity edema. Regarding gallbladder, patient states that she has been evaluated for gallbladder surgery but this has been put on hold. EKG sinus rhythm with no acute ST-T wave changes. Chest x-ray: Findings suggestive of CHF exacerbation. WBC 4, hemoglobin 8.1, platelet count 165. INR 1. Sodium 141, potassium 3.4, BUN 39 creatinine 6.5. Magnesium 1.9. Total bilirubin 1.9, AST 414, ALT 134, alkaline phosphatase 224. Troponin negative x 1. proBNP 3270. Influenza A, influenza B, RSV, COVID-19 not detected. Home cardiac medications: Aspirin 325 mg daily, Coreg 25 mg twice daily, simvastatin 40 mg at bedtime, patient is also on midodrine as needed and levothyroxine. 06/01/2023 The patient was seen and examined resting comfortably in bed. She is overall feeling a bit better. Her abdomen is feeling better. She denies any complaints of chest discomfort at this time. Denies any shortness of breath at this time. She was seen and examined by surgical team and recommended cholecystectomy. She is scheduled for a Lexiscan MPI to be done on Saturday. Echocardiogram is pending. 06/02/2023 The patient was seen and examined resting comfortably bed. She feels her breathing is stable. She has had no further abdominal pain. She has had no nausea or vomiting. She denies any complaints of chest discomfort. She is scheduled for a Lexiscan MPI to be done tomorrow. Echocardiogram remains pending. 06/03/2023 Patient examined this morning. Patient is resting comfortably in bed. Patient denies any chest pain or pressure. She denies any shortness of breath. She denies any abdominal pain. No complaints of nausea or vomiting. Vital signs are stable. She is scheduled to undergo Lexiscan stress test today. Addendum entered and electronically signed by Ladan George NP-C 06/03/23 1 2:52: Gladys scan without evidence of reversible ischemia. Preliminary echocardiogram re veals ejection fraction 35 to 40% with no obvious regional wall motion abnormalities and mild aortic stenosis. There are no absolute contraindications for patient to proceed with surgery from a cardiac standpoint if surgery deemed appropriate to be performed today Recommend cautious fluid administration secondary to low EF and hemodialysis Patient will require eventual workup for her cardiomyopathy 06/04/2023 Patient examined this morning at bedside. Patient is status post laparoscopic cholecystectomy. Postop day #1. Patient denies chest pain or pressure. Denies SOB. Vital signs are stable. Blood pressure remains marginal. 06/06 Cardiology was reconsulted secondary to cardiac arrest during ERCP. Patient had MRCP showing areas of calcification with possible stone in the common bile duct and therefore was recommended to undergo ERCP. Her liver enzymes have been remaining elevated. She therefore underwent ERCP 06/06. Per report patient had RA been intubated and did undergo ERCP with a number of stones removed. During the procedure she was noted to have abnormal CO2 levels, had turned blue and had initially been prone. Patient was turned over and no pulse and therefore CPR was performed. Also epinephrine was given and eventually had bradycardia and was given atropine with some improvement in heart rates. Patient currently remains intubated however not on any vasopressors and sinus bradycardia with heart rates in the 50s. 06/07 Echocardiogram was performed yesterday which showed left ventricular ejection fraction 50% with moderate right ventricular dilation. Remains on ventilator with FiO2 35% and a PEEP of 5. Currently on norepinephrine at 0.06. Currently in sinus rhythm with heart rates in the lower 50s. No significant heart arrhythmias however mildly prolonged QT, QTC 470 however this is off of telemetry and patient has been bradycardic. She is not receiving any significant QT prolonging medications other than narcotics. PHYSICAL EXAM: VITAL SIGNS: Reviewed. GENERAL: Well-developed in no acute distress. NECK: Supple. No JVD or thyromegaly LUNGS: Respirations even and unlabored. Lungs essentially clear to auscultation bilaterally. HEART: Regular rate and rhythm. S1 and S2 heard. EXTREMITIES: Normal range of motion. No clubbing or cyanosis. Peripheral pulses intact. No lower extremity edema. AV fistula to right arm. ASSESSMENT: Chronic cholecystitis; status post laparoscopic cholecystectomy Cardiomyopathy, EF 35 to 40%, ischemic versus nonischemic Mild aortic stenosis End-stage renal disease on hemodialysis Hypertension Hyperlipidemia Diabetes Obstructive sleep apnea S/p cardiac arrest, unclear cardiac versus pulmonary. Patient was apparently intubated however was prone and cyanotic Mildly prolonged QT interval PLAN: Unclear cause of cardiac arrest. No obvious ventricular tachycardia ventricular fibrillation noted during procedure. Repeat echo showing relatively preserved ejection fraction, increased from prior up to 50%. EKG without any obvious ischemic changes. Troponins normal 3. Avoid any QT prolonging medications Continue with supportive care. Wean ventilator as able. Patient not able to tolerate any heart failure regimen with her blood pressure low. Objective - Vital Signs Vital signs: Vital Signs Temp 93.2 F L 06/08/23 14:00 Pulse 52 L 06/08/23 14:00 Resp 25 H 06/08/23 14:00 BP 134/42 06/08/23 14:00 Pulse Ox 97 06/08/23 14:00 FiO2 35 06/08/23 15:37 Intake & Output 06/07/23 06/08/23 06/08/23 18:59 06:59 18:59 Intake Total 819.44 844.691 748.221 Output Total 0 1450 2700 Balance 819.44 -605.309 -1951.779 Weight 144 kg 137.6 kg Intake: IV 800 100 150 cefTRIAXone 2 gm In 50 Sodium Chloride 0.9% 50 ml @ 100 mls/hr IVPB Q24HR [facility] Rx#:[id number] metroNIDAZOLE-NS PMX 500 100 100 100 mg In Saline 1 100ml.bag @ 100 mls/hr IVPB Q8HR [facility] Rx#:[id number] Intake, IV Titration 19.44 344.691 198.221 Amount Norepinephrine 4 mg In 128.931 125.069 Sodium Chloride 0.9% 250 ml @ 0.03 MCG/KG/MIN 16. 459 mls/hr IV .[id number] [facility] Rx#:[id number] propofoL 1,000 mg In 19.44 215.760 73.152 Empty Bag 1 bag @ 15 MCG/ KG/MIN 8.64 mls/hr IV . [id number] [facility] Rx#:[id number] Hemodialysis 400 400 Output: Gastric Drainage 50 300 Urine 0 0 0 Uretheral (Chen) 0 0 Hemodialysis 1400 2400 Other: # Bowel Movements 0 0 0 ABP, PAP, CO, CI - Last Documented Arterial Blood Pressure 132/43 - Labs CBC & Chem 7: 06/08/23 04:25 06/08/23 04:25 Labs: Abnormal Lab Results - Last 24 Hours (Table) 06/07/23 06/07/23 06/07/23 Range/Units 18:49 21:59 23:34 RBC (3.80-5.40) m/uL Hgb (11.4-16.0) gm/dL Hct (34.0-46.0) % MCV (80.0-100.0) fL RDW (11.5-15.5) % Plt Count (150-450) k/uL ABG pH (7.35-7.45) ABG pCO2 (35-45) mmHg ABG pO2 (83-108) mmHg ABG HCO3 (21-25) mmol/L ABG Total CO2 (19-24) mmol/L Sodium (137-145) mmol/L BUN (7-17) mg/dL Creatinine (0.52-1.04) mg/dL Glucose (74-99) mg/dL POC Glucose (mg/dL) 201 H 174 H 161 H (70-110) mg/dL Calcium (8.4-10.2) mg/dL AST (14-36) U/L ALT (4-34) U/L 06/08/23 06/08/23 06/08/23 Range/Units 04:25 04:25 04:25 RBC 2.36 L (3.80-5.40) m/uL Hgb 8.3 L (11.4-16.0) gm/dL Hct 24.7 L (34.0-46.0) % MCV 104.6 H (80.0-100.0) fL RDW 18.2 H (11.5-15.5) % Plt Count 121 L (150-450) k/uL ABG pH (7.35-7.45) ABG pCO2 (35-45) mmHg ABG pO2 (83-108) mmHg ABG HCO3 (21-25) mmol/L ABG Total CO2 (19-24) mmol/L Sodium 132 L (137-145) mmol/L BUN 37 H (7-17) mg/dL Creatinine 5.73 H (0.52-1.04) mg/dL Glucose 140 H (74-99) mg/dL POC Glucose (mg/dL) (70-110) mg/dL Calcium 8.0 L (8.4-10.2) mg/dL AST 69 H (14-36) U/L ALT 48 H (4-34) U/L 06/08/23 Range/Units 05:29 RBC (3.80-5.40) m/uL Hgb (11.4-16.0) gm/dL Hct (34.0-46.0) % MCV (80.0-100.0) fL RDW (11.5-15.5) % Plt Count (150-450) k/uL ABG pH 7.52 H (7.35-7.45) ABG pCO2 32 L (35-45) mmHg ABG pO2 68 L (83-108) mmHg ABG HCO3 26 H (21-25) mmol/L ABG Total CO2 27 H (19-24) mmol/L Sodium (137-145) mmol/L BUN (7-17) mg/dL Creatinine (0.52-1.04) mg/dL Glucose (74-99) mg/dL POC Glucose (mg/dL) (70-110) mg/dL Calcium (8.4-10.2) mg/dL AST (14-36) U/L ALT (4-34) U/L Microbiology - Last 24 Hours (Table) 06/07/23 14:20 Gram Stain - Preliminary Sputum
[2023-06-08 17:57] LABS: Glucose,Whole Blood 58 mg/dL (70-110)
[2023-06-08] MEDS: DEXTROSE 50% SYRINGE 50 ML IVP PRN (17:59)
[2023-06-08 18:08] LABS: Glucose,Whole Blood 147 mg/dL (70-110)
[2023-06-08] MEDS: DARBEPOETIN ALFA 40 MCG/0.4 ML SYRINGE SQ SCH (18:12)
[2023-06-09 00:37] LABS: Glucose,Whole Blood 48 mg/dL (70-110)
[2023-06-09 00:37] LABS: Glucose,Whole Blood 49 mg/dL (70-110)
[2023-06-09 00:41] LABS: Glucose,Whole Blood 49 mg/dL (70-110)
[2023-06-09] MEDS: DEXTROSE 50% SYRINGE 50 ML IVP PRN (00:44)
[2023-06-09 01:05] LABS: Glucose,Whole Blood 123 mg/dL (70-110)
[2023-06-09 03:36] LABS: Glucose,Whole Blood 80 mg/dL (70-110)
--- NOTE | 2023-06-09 04:08 | P.PN ---
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 She has a past medical history of end-stage renal disease on hemodialysis, diabetes mellitus, hypertension, hyperlipidemia, hypothyroidism, obstructive sleep apnea on CPAP. We have been asked to evaluate patient for CHF. Patient states that she had nausea vomiting diarrhea could not complete her dialysis treatment she also had chills. Abdominal distention. And dizziness. She denies having any chest pain. She denies having any blood in her stools. She states she did have some shortness of breath because she did not finish her dialysis treatment. She states she is a non-smoker. No lower extremity edema. Regarding gallbladder, patient states that she has been evaluated for gallbladder surgery but this has been put on hold. EKG sinus rhythm with no acute ST-T wave changes. Chest x-ray: Findings suggestive of CHF exacerbation. WBC 4, hemoglobin 8.1, platelet count 165. INR 1. Sodium 141, potassium 3.4, BUN 39 creatinine 6.5. Magnesium 1.9. Total bilirubin 1.9, AST 414, ALT 134, alkaline phosphatase 224. Troponin negative x 1. proBNP 3270. Influenza A, influenza B, RSV, COVID-19 not detected. Home cardiac medications: Aspirin 325 mg daily, Coreg 25 mg twice daily, simvastatin 40 mg at bedtime, patient is also on midodrine as needed and levothyroxine. 06/01/2023 The patient was seen and examined resting comfortably in bed. She is overall feeling a bit better. Her abdomen is feeling better. She denies any complaints of chest discomfort at this time. Denies any shortness of breath at this time. She was seen and examined by surgical team and recommended cholecystectomy. She is scheduled for a Lexiscan MPI to be done on Saturday. Echocardiogram is pending. 06/02/2023 The patient was seen and examined resting comfortably bed. She feels her breathing is stable. She has had no further abdominal pain. She has had no nausea or vomiting. She denies any complaints of chest discomfort. She is scheduled for a Lexiscan MPI to be done tomorrow. Echocardiogram remains pending. 06/03/2023 Patient examined this morning. Patient is resting comfortably in bed. Patient denies any chest pain or pressure. She denies any shortness of breath. She denies any abdominal pain. No complaints of nausea or vomiting. Vital signs are stable. She is scheduled to undergo Lexiscan stress test today. Addendum entered and electronically signed by Ladan George NP-C 06/03/23 1 2:52: Gladys scan without evidence of reversible ischemia. Preliminary echocardiogram re veals ejection fraction 35 to 40% with no obvious regional wall motion abnormalities and mild aortic stenosis. There are no absolute contraindications for patient to proceed with surgery from a cardiac standpoint if surgery deemed appropriate to be performed today Recommend cautious fluid administration secondary to low EF and hemodialysis Patient will require eventual workup for her cardiomyopathy 06/04/2023 Patient examined this morning at bedside. Patient is status post laparoscopic cholecystectomy. Postop day #1. Patient denies chest pain or pressure. Denies SOB. Vital signs are stable. Blood pressure remains marginal. 06/06 Cardiology was reconsulted secondary to cardiac arrest during ERCP. Patient had MRCP showing areas of calcification with possible stone in the common bile duct and therefore was recommended to undergo ERCP. Her liver enzymes have been remaining elevated. She therefore underwent ERCP 06/06. Per report patient had RA been intubated and did undergo ERCP with a number of stones removed. During the procedure she was noted to have abnormal CO2 levels, had turned blue and had initially been prone. Patient was turned over and no pulse and therefore CPR was performed. Also epinephrine was given and eventually had bradycardia and was given atropine with some improvement in heart rates. Patient currently remains intubated however not on any vasopressors and sinus bradycardia with heart rates in the 50s. 06/07 Echocardiogram was performed yesterday which showed left ventricular ejection fraction 50% with moderate right ventricular dilation. Remains on ventilator with FiO2 35% and a PEEP of 5. Currently on norepinephrine at 0.06. Currently in sinus rhythm with heart rates in the lower 50s. No significant heart arrhythmias however mildly prolonged QT, QTC 470 however this is off of telemetry and patient has been bradycardic. She is not receiving any significant QT prolonging medications other than narcotics. 06/07 Patient seen and examined. Patient remains intubated and sedated currently on FiO2 35% with a PEEP of 5. Remains on norepinephrine at 0.05. Currently nothing by mouth with OG in place. Remains in sinus rhythm with sinus br adycardia, heart rates 51 bpm with similar QTC. No significant arrhythmias. PHYSICAL EXAM: VITAL SIGNS: Reviewed. GENERAL: Well-developed in no acute distress. NECK: Supple. No JVD or thyromegaly LUNGS: Respirations even and unlabored. Lungs essentially clear to auscultation bilaterally. HEART: Regular rate and rhythm. S1 and S2 heard. EXTREMITIES: Normal range of motion. No clubbing or cyanosis. Peripheral pulses intact. No lower extremity edema. AV fistula to right arm. ASSESSMENT: Chronic cholecystitis; status post laparoscopic cholecystectomy Cardiomyopathy, EF 35 to 40%, ischemic versus nonischemic Mild aortic stenosis End-stage renal disease on hemodialysis Hypertension Hyperlipidemia Diabetes Obstructive sleep apnea S/p cardiac arrest, unclear cardiac versus pulmonary. Patient was apparently intubated however was prone and cyanotic Mildly prolonged QT interval PLAN: Unclear cause of cardiac arrest. No obvious ventricular tachycardia ventricular fibrillation noted during procedure. Repeat echo showing relatively preserved ejection fraction, increased from prior up to 50%. EKG without any obvious ischemic changes. Troponins normal 3. Avoid any QT prolonging medications Continue with supportive care. Wean ventilator as able. Patient not able to tolerate any heart failure regimen with her blood pressure low. Hypotension likely mainly related to sepsis and monitor response of antibiotics and status post ERCP. Objective - Vital Signs Vital signs: Vital Signs Temp 96.1 F L 06/09/23 00:00 Pulse 51 L 06/09/23 04:03 Resp 28 H 06/09/23 02:00 BP 121/48 06/09/23 02:00 Pulse Ox 96 06/09/23 02:00 FiO2 35 06/09/23 03:52 Intake & Output 06/08/23 06/08/23 06/09/23 06:59 18:59 06:59 Intake Total 008.341 9381.421 347.518 Output Total 1450 2750 0 Balance -605.309 -1466.579 347.518 Weight 137.6 kg Intake: IV 100 250 100 cefTRIAXone 2 gm In 50 Sodium Chloride 0.9% 50 ml @ 100 mls/hr IVPB Q24HR [facility] Rx#:[id number] metroNIDAZOLE-NS PMX 500 100 200 100 mg In Saline 1 100ml.bag @ 100 mls/hr IVPB Q8HR [facility] Rx#:[id number] Intake, IV Titration 344.691 633.421 247.518 Amount Norepinephrine 4 mg In 128.931 460.269 130.302 Sodium Chloride 0.9% 250 ml @ 0.03 MCG/KG/MIN 16. 459 mls/hr IV .[id number] [facility] Rx#:[id number] propofoL 1,000 mg In 215.760 173.152 117.216 Empty Bag 1 bag @ 15 MCG/ KG/MIN 8.64 mls/hr IV . [id number] [facility] Rx#:[id number] Hemodialysis 400 400 Output: Gastric Drainage 50 350 Urine 0 0 0 Hemodialysis 1400 2400 Other: # Bowel Movements 0 0 0 ABP, PAP, CO, CI - Last Documented Arterial Blood Pressure 121/40 - Labs CBC & Chem 7: 06/08/23 04:25 06/08/23 04:25 Labs: Abnormal Lab Results - Last 24 Hours (Table) 06/08/23 06/08/23 06/08/23 Range/Units 04:25 04:25 04:25 RBC 2.36 L (3.80-5.40) m/uL Hgb 8.3 L (11.4-16.0) gm/dL Hct 24.7 L (34.0-46.0) % MCV 104.6 H (80.0-100.0) fL RDW 18.2 H (11.5-15.5) % Plt Count 121 L (150-450) k/uL ABG pH (7.35-7.45) ABG pCO2 (35-45) mmHg ABG pO2 (83-108) mmHg ABG HCO3 (21-25) mmol/L ABG Total CO2 (19-24) mmol/L Sodium 132 L (137-145) mmol/L BUN 37 H (7-17) mg/dL Creatinine 5.73 H (0.52-1.04) mg/dL Glucose 140 H (74-99) mg/dL POC Glucose (mg/dL) (70-110) mg/dL Hemoglobin A1c 6.1 H (<=6.0) % Calcium 8.0 L (8.4-10.2) mg/dL AST (14-36) U/L ALT (4-34) U/L 06/08/23 06/08/23 06/08/23 Range/Units 04:25 05:29 17:55 RBC (3.80-5.40) m/uL Hgb (11.4-16.0) gm/dL Hct (34.0-46.0) % MCV (80.0-100.0) fL RDW (11.5-15.5) % Plt Count (150-450) k/uL ABG pH 7.52 H (7.35-7.45) ABG pCO2 32 L (35-45) mmHg ABG pO2 68 L (83-108) mmHg ABG HCO3 26 H (21-25) mmol/L ABG Total CO2 27 H (19-24) mmol/L Sodium (137-145) mmol/L BUN (7-17) mg/dL Creatinine (0.52-1.04) mg/dL Glucose (74-99) mg/dL POC Glucose (mg/dL) 58 L (70-110) mg/dL Hemoglobin A1c (<=6.0) % Calcium (8.4-10.2) mg/dL AST 69 H (14-36) U/L ALT 48 H (4-34) U/L 06/08/23 06/09/23 06/09/23 Range/Units 18:07 00:33 00:34 RBC (3.80-5.40) m/uL Hgb (11.4-16.0) gm/dL Hct (34.0-46.0) % MCV (80.0-100.0) fL RDW (11.5-15.5) % Plt Count (150-450) k/uL ABG pH (7.35-7.45) ABG pCO2 (35-45) mmHg ABG pO2 (83-108) mmHg ABG HCO3 (21-25) mmol/L ABG Total CO2 (19-24) mmol/L Sodium (137-145) mmol/L BUN (7-17) mg/dL Creatinine (0.52-1.04) mg/dL Glucose (74-99) mg/dL POC Glucose (mg/dL) 147 H 49 L 48 L (70-110) mg/dL Hemoglobin A1c (<=6.0) % Calcium (8.4-10.2) mg/dL AST (14-36) U/L ALT (4-34) U/L 06/09/23 06/09/23 Range/Units 00:39 01:02 RBC (3.80-5.40) m/uL Hgb (11.4-16.0) gm/dL Hct (34.0-46.0) % MCV (80.0-100.0) fL RDW (11.5-15.5) % Plt Count (150-450) k/uL ABG pH (7.35-7.45) ABG pCO2 (35-45) mmHg ABG pO2 (83-108) mmHg ABG HCO3 (21-25) mmol/L ABG Total CO2 (19-24) mmol/L Sodium (137-145) mmol/L BUN (7-17) mg/dL Creatinine (0.52-1.04) mg/dL Glucose (74-99) mg/dL POC Glucose (mg/dL) 49 L 123 H (70-110) mg/dL Hemoglobin A1c (<=6.0) % Calcium (8.4-10.2) mg/dL AST (14-36) U/L ALT (4-34) U/L Microbiology - Last 24 Hours (Table) 06/07/23 14:20 Gram Stain - Preliminary Sputum
[2023-06-09 04:27] LABS: Glucose,Whole Blood 73 mg/dL (70-110)
[2023-06-09 04:50] LABS: Anisocytosis Slight; Basophils # (A) 0.1 k/uL (0-0.2); Basophils % (A) 1 %; Eosinophils # (A) 0.3 k/uL (0-0.7); Eosinophils % (A) 3 %; HCT 25.5 % (34.0-46.0); HGB 8.4 gm/dL (11.4-16.0); Lymphocytes # (A) 1.4 k/uL (1.0-4.8); Lymphocytes % (A) 16 %; MCH 34.9 pg (25.0-35.0); MCHC 33.1 g/dL (31.0-37.0); MCV 105.4 fL (80.0-100.0); Macrocytosis Marked; Mean Platelet Volume 10.7; Monocytes # (A) 0.2 k/uL (0-1.0); Monocytes % (A) 3 %; Neutrophils # (A) 6.8 k/uL (1.3-7.7); Neutrophils % (A) 76 %; Platelet Count 135 k/uL (150-450); RBC 2.42 m/uL (3.80-5.40); RDW 18.2 % (11.5-15.5)
[2023-06-09 05:22] LABS: African American GFR (CKD) 9 (>60 ml/min/1.73 sqM); Anion Gap 13 mmol/L; Blood Urea Nitrogen 28 mg/dL (7-17); Carbon Dioxide 20 mmol/L (22-30); Chloride 100 mmol/L (98-107); Glucose 67 mg/dL (74-99); Non-African American GFR(CKD) 8 (>60 ml/min/1.73 sqM); Potassium 3.3 mmol/L (3.5-5.1); Sodium 133 mmol/L (137-145)
[2023-06-09 05:45] LABS: ABG Base Excess 3.7 mmol/L; ABG HCO3 26 mmol/L (21-25); ABG PCO2 29 mmHg (35-45); ABG PO2 76 mmHg (83-108); ABG TCO2 27 mmol/L (19-24); Allen Test Performed? Yes
[2023-06-09 05:46] LABS: ABG PH 7.56 (7.35-7.45)
[2023-06-09 05:48] LABS: Glucose,Whole Blood 90 mg/dL (70-110)
[2023-06-09 05:57] LABS: Glucose,Whole Blood 63 mg/dL (70-110)
[2023-06-09] MEDS: POTASSIUM BICARBONATE/CIT AC 20 MEQ TABLET.EFF NG-TUBE SCH (05:59)
[2023-06-09 06:35] LABS: Glucose,Whole Blood 129 mg/dL (70-110)
--- NOTE | 2023-06-09 06:47 | XR ---
EXAMINATION TYPE: XR chest 1V portable DATE OF EXAM: 06/09/2023 COMPARISON: 06/08/2023 HISTORY: Tube placement TECHNIQUE: Single frontal view of the chest is obtained. FINDINGS: The NG tube is stable at 4.8 cm above the antwon. No change in the opacification of the left lung from midlung to the lung base likely combination of l ayering pleural effusion and airspace consolidation. There is no change in the pulmonary vascular congestion and small right pleural effusion. There is no pneumothorax. IMPRESSION: 1. Stable ET tube placement 4.8 cm above the antwon. 2. No change in the acute cardiopulmonary disease involving both lungs.
[2023-06-09] MEDS: POTASSIUM CHLORIDE 10 MEQ in WATER FOR INJECTION 1 100ML.BAG IVPB STA (06:49)
--- NOTE | 2023-06-09 10:44 | P.PN ---
Subjective Patient is seen in follow-up for end-stage renal disease. She is maintained on hemodialysis on Saturday schedule. Tolerated 2 L u ltrafiltration yesterday. Currently intubated. On Levophed. Vital signs are stable. On Levophed. General: Resting in bed. HEENT: Intubated. LUNGS: Scattered rhonchi. HEART: Rate and Rhythm are regular. ABDOMEN: Obese, no distention. EXTREMITITES: Trace edema. Objective - Vital Signs Vital signs: Vital Signs Temp 95.9 F L 06/09/23 08:00 Pulse 57 L 06/09/23 10:30 Resp 18 06/09/23 10:30 BP 119/57 06/09/23 06:00 Pulse Ox 95 06/09/23 10:30 FiO2 35 06/09/23 10:30 Intake & Output 06/08/23 06/09/23 06/09/23 18:59 06:59 18:59 Intake Total 1283.421 621.057 308.980 Output Total 2750 0 0 Balance -1466.579 621.057 308.980 Weight 143.3 kg Intake: IV 250 100 150 cefTRIAXone 2 gm In 50 50 Sodium Chloride 0.9% 50 ml @ 100 mls/hr IVPB Q24HR [facility] Rx#:[id number] metroNIDAZOLE-NS PMX 500 200 100 100 mg In Saline 1 100ml.bag @ 100 mls/hr IVPB Q8HR [facility] Rx#:[id number] Intake, IV Titration 633.421 521.057 158.980 Amount Norepinephrine 4 mg In 460.269 299.009 96.196 Sodium Chloride 0.9% 250 ml @ 0.03 MCG/KG/MIN 16. 459 mls/hr IV .[id number] [facility] Rx#:[id number] propofoL 1,000 mg In 173.152 222.048 62.784 Empty Bag 1 bag @ 15 MCG/ KG/MIN 8.64 mls/hr IV . [id number] [facility] Rx#:[id number] Hemodialysis 400 Output: Gastric Drainage 350 Urine 0 0 0 Hemodialysis 2400 Other: # Bowel Movements 0 0 0 ABP, PAP, CO, CI - Last Documented Arterial Blood Pressure 110/42 - Labs CBC & Chem 7: 06/09/23 04:25 03/24/24 04:25 Labs: Abnormal Lab Results - Last 24 Hours (Table) 06/08/23 06/08/23 06/08/23 Range/Units 04:25 04:25 17:55 RBC (3.80-5.40) m/uL Hgb (11.4-16.0) gm/dL Hct (34.0-46.0) % MCV (80.0-100.0) fL RDW (11.5-15.5) % Plt Count (150-450) k/uL Macrocytosis ABG pH (7.35-7.45) ABG pCO2 (35-45) mmHg ABG pO2 (83-108) mmHg ABG HCO3 (21-25) mmol/L ABG Total CO2 (19-24) mmol/L Sodium (137-145) mmol/L Potassium (3.5-5.1) mmol/L Carbon Dioxide (22-30) mmol/L BUN (7-17) mg/dL Creatinine (0.52-1.04) mg/dL Glucose (74-99) mg/dL POC Glucose (mg/dL) 58 L (70-110) mg/dL Hemoglobin A1c 6.1 H (<=6.0) % Calcium (8.4-10.2) mg/dL AST 69 H (14-36) U/L ALT 48 H (4-34) U/L 06/08/23 06/09/23 06/09/23 Range/Units 18:07 00:33 00:34 RBC (3.80-5.40) m/uL Hgb (11.4-16.0) gm/dL Hct (34.0-46.0) % MCV (80.0-100.0) fL RDW (11.5-15.5) % Plt Count (150-450) k/uL Macrocytosis ABG pH (7.35-7.45) ABG pCO2 (35-45) mmHg ABG pO2 (83-108) mmHg ABG HCO3 (21-25) mmol/L ABG Total CO2 (19-24) mmol/L Sodium (137-145) mmol/L Potassium (3.5-5.1) mmol/L Carbon Dioxide (22-30) mmol/L BUN (7-17) mg/dL Creatinine (0.52-1.04) mg/dL Glucose (74-99) mg/dL POC Glucose (mg/dL) 147 H 49 L 48 L (70-110) mg/dL Hemoglobin A1c (<=6.0) % Calcium (8.4-10.2) mg/dL AST (14-36) U/L ALT (4-34) U/L 06/09/23 06/09/23 06/09/23 Range/Units 00:39 01:02 04:25 RBC 2.42 L (3.80-5.40) m/uL Hgb 8.4 L (11.4-16.0) gm/dL Hct 25.5 L (34.0-46.0) % MCV 105.4 H (80.0-100.0) fL RDW 18.2 H (11.5-15.5) % Plt Count 135 L (150-450) k/uL Macrocytosis Marked A ABG pH (7.35-7.45) ABG pCO2 (35-45) mmHg ABG pO2 (83-108) mmHg ABG HCO3 (21-25) mmol/L ABG Total CO2 (19-24) mmol/L Sodium (137-145) mmol/L Potassium (3.5-5.1) mmol/L Carbon Dioxide (22-30) mmol/L BUN (7-17) mg/dL Creatinine (0.52-1.04) mg/dL Glucose (74-99) mg/dL POC Glucose (mg/dL) 49 L 123 H (70-110) mg/dL Hemoglobin A1c (<=6.0) % Calcium (8.4-10.2) mg/dL AST (14-36) U/L ALT (4-34) U/L 06/09/23 06/09/23 06/09/23 Range/Units 04:25 05:40 05:56 RBC (3.80-5.40) m/uL Hgb (11.4-16.0) gm/dL Hct (34.0-46.0) % MCV (80.0-100.0) fL RDW (11.5-15.5) % Plt Count (150-450) k/uL Macrocytosis ABG pH 7.56 H* (7.35-7.45) ABG pCO2 29 L (35-45) mmHg ABG pO2 76 L (83-108) mmHg ABG HCO3 26 H (21-25) mmol/L ABG Total CO2 27 H (19-24) mmol/L Sodium 133 L (137-145) mmol/L Potassium 3.3 L (3.5-5.1) mmol/L Carbon Dioxide 20 L (22-30) mmol/L BUN 28 H (7-17) mg/dL Creatinine 5.36 H (0.52-1.04) mg/dL Glucose 67 L (74-99) mg/dL POC Glucose (mg/dL) 63 L (70-110) mg/dL Hemoglobin A1c (<=6.0) % Calcium 8.0 L (8.4-10.2) mg/dL AST (14-36) U/L ALT (4-34) U/L 06/09/23 Range/Units 06:33 RBC (3.80-5.40) m/uL Hgb (11.4-16.0) gm/dL Hct (34.0-46.0) % MCV (80.0-100.0) fL RDW (11.5-15.5) % Plt Count (150-450) k/uL Macrocytosis ABG pH (7.35-7.45) ABG pCO2 (35-45) mmHg ABG pO2 (83-108) mmHg ABG HCO3 (21-25) mmol/L ABG Total CO2 (19-24) mmol/L Sodium (137-145) mmol/L Potassium (3.5-5.1) mmol/L Carbon Dioxide (22-30) mmol/L BUN (7-17) mg/dL Creatinine (0.52-1.04) mg/dL Glucose (74-99) mg/dL POC Glucose (mg/dL) 129 H (70-110) mg/dL Hemoglobin A1c (<=6.0) % Calcium (8.4-10.2) mg/dL AST (14-36) U/L ALT (4-34) U/L Microbiology - Last 24 Hours (Table) 06/07/23 14:20 Gram Stain - Final Sputum Sputum Culture - Final Marla sp,not albicans/galbr Assessment and Plan Plan: Assessment: 1. End-stage renal disease maintained on hemodialysis on Saturday schedule via AV graft. 2. Infiltrated AV graft. Seen by vascular surgery. Now being used. 3. Nausea and vomiting. CT showed no acute process. Status post laparoscopic cholecystectomy this admission. Also underwent ERCP with 3 small stones extracted. 4. Volume overload. Improving with ultrafiltration. 5. Hypotension maintained on midodrine. Now on Levophed. 6. Diabetes mellitus. 7. Chronic kidney disease mineral bone disease maintained on Renvela. 8. Anemia of chronic kidney disease. On Aranesp. 9. Status postcardiac arrest. 10. Hypokalemia from poor intake. Replaced. Plan: Extra hemodialysis treatment tomorrow mostly for ultrafiltration. Maintain midodrine. Hold for systolic blood pressure greater than 110. Wean Levophed. Wean FiO2.
--- NOTE | 2023-06-09 10:50 | P.PN ---
Subjective Progress Note Date: 06/09/23 Patient on ventilatory support. No new issues overnight. Patient in ICU. No peritonitis Objective - Vital Signs Vital signs: Vital Signs Temp 95.9 F L 06/09/23 08:00 Pulse 57 L 06/09/23 10:30 Resp 18 06/09/23 10:30 BP 119/57 06/09/23 06:00 Pulse Ox 95 06/09/23 10:30 FiO2 35 06/09/23 10:49 Intake & Output 06/08/23 06/09/23 06/09/23 18:59 06:59 18:59 Intake Total 1283.421 621.057 308.980 Output Total 2750 0 0 Balance -1466.579 621.057 308.980 Weight 143.3 kg Intake: IV 250 100 150 cefTRIAXone 2 gm In 50 50 Sodium Chloride 0.9% 50 ml @ 100 mls/hr IVPB Q24HR [facility] Rx#:[id number] metroNIDAZOLE-NS PMX 500 200 100 100 mg In Saline 1 100ml.bag @ 100 mls/hr IVPB Q8HR [facility] Rx#:[id number] Intake, IV Titration 633.421 521.057 158.980 Amount Norepinephrine 4 mg In 460.269 299.009 96.196 Sodium Chloride 0.9% 250 ml @ 0.03 MCG/KG/MIN 16. 459 mls/hr IV .[id number] [facility] Rx#:[id number] propofoL 1,000 mg In 173.152 222.048 62.784 Empty Bag 1 bag @ 15 MCG/ KG/MIN 8.64 mls/hr IV . [id number] [facility] Rx#:[id number] Hemodialysis 400 Output: Gastric Drainage 350 Urine 0 0 0 Hemodialysis 2400 Other: # Bowel Movements 0 0 0 ABP, PAP, CO, CI - Last Documented Arterial Blood Pressure 110/42 - Labs CBC & Chem 7: 06/09/23 04:25 06/09/23 04:25 Labs: Abnormal Lab Results - Last 24 Hours (Table) 06/08/23 06/08/23 06/08/23 Range/Units 04:25 04:25 17:55 RBC (3.80-5.40) m/uL Hgb (11.4-16.0) gm/dL Hct (34.0-46.0) % MCV (80.0-100.0) fL RDW (11.5-15.5) % Plt Count (150-450) k/uL Macrocytosis ABG pH (7.35-7.45) ABG pCO2 (35-45) mmHg ABG pO2 (83-108) mmHg ABG HCO3 (21-25) mmol/L ABG Total CO2 (19-24) mmol/L Sodium (137-145) mmol/L Potassium (3.5-5.1) mmol/L Carbon Dioxide (22-30) mmol/L BUN (7-17) mg/dL Creatinine (0.52-1.04) mg/dL Glucose (74-99) mg/dL POC Glucose (mg/dL) 58 L (70-110) mg/dL Hemoglobin A1c 6.1 H (<=6.0) % Calcium (8.4-10.2) mg/dL AST 69 H (14-36) U/L ALT 48 H (4-34) U/L 06/08/23 06/09/23 06/09/23 Range/Units 18:07 00:33 00:34 RBC (3.80-5.40) m/uL Hgb (11.4-16.0) gm/dL Hct (34.0-46.0) % MCV (80.0-100.0) fL RDW (11.5-15.5) % Plt Count (150-450) k/uL Macrocytosis ABG pH (7.35-7.45) ABG pCO2 (35-45) mmHg ABG pO2 (83-108) mmHg ABG HCO3 (21-25) mmol/L ABG Total CO2 (19-24) mmol/L Sodium (137-145) mmol/L Potassium (3.5-5.1) mmol/L Carbon Dioxide (22-30) mmol/L BUN (7-17) mg/dL Creatinine (0.52-1.04) mg/dL Glucose (74-99) mg/dL POC Glucose (mg/dL) 147 H 49 L 48 L (70-110) mg/dL Hemoglobin A1c (<=6.0) % Calcium (8.4-10.2) mg/dL AST (14-36) U/L ALT (4-34) U/L 0306/09/23 06/09/23 Range/Units 00:39 01:02 04:25 RBC 2.42 L (3.80-5.40) m/uL Hgb 8.4 L (11.4-16.0) gm/dL Hct 25.5 L (34.0-46.0) % MCV 105.4 H (80.0-100.0) fL RDW 18.2 H (11.5-15.5) % Plt Count 135 L (150-450) k/uL Macrocytosis Marked A ABG pH (7.35-7.45) ABG pCO2 (35-45) mmHg ABG pO2 (83-108) mmHg ABG HCO3 (21-25) mmol/L ABG Total CO2 (19-24) mmol/L Sodium (137-145) mmol/L Potassium (3.5-5.1) mmol/L Carbon Dioxide (22-30) mmol/L BUN (7-17) mg/dL Creatinine (0.52-1.04) mg/dL Glucose (74-99) mg/dL POC Glucose (mg/dL) 49 L 123 H (70-110) mg/dL Hemoglobin A1c (<=6.0) % Calcium (8.4-10.2) mg/dL AST (14-36) U/L ALT (4-34) U/L 06/09/23 06/09/23 06/09/23 Range/Units 04:25 05:40 05:56 RBC (3.80-5.40) m/uL Hgb (11.4-16.0) gm/dL Hct (34.0-46.0) % MCV (80.0-100.0) fL RDW (11.5-15.5) % Plt Count (150-450) k/uL Macrocytosis ABG pH 7.56 H* (7.35-7.45) ABG pCO2 29 L (35-45) mmHg ABG pO2 76 L (83-108) mmHg ABG HCO3 26 H (21-25) mmol/L ABG Total CO2 27 H (19-24) mmol/L Sodium 133 L (137-145) mmol/L Potassium 3.3 L (3.5-5.1) mmol/L Carbon Dioxide 20 L (22-30) mmol/L BUN 28 H (7-17) mg/dL Creatinine 5.36 H (0.52-1.04) mg/dL Glucose 67 L (74-99) mg/dL POC Glucose (mg/dL) 63 L (70-110) mg/dL Hemoglobin A1c (<=6.0) % Calcium 8.0 L (8.4-10.2) mg/dL AST (14-36) U/L ALT (4-34) U/L 06/09/23 Range/Units 06:33 RBC (3.80-5.40) m/uL Hgb (11.4-16.0) gm/dL Hct (34.0-46.0) % MCV (80.0-100.0) fL RDW (11.5-15.5) % Plt Count (150-450) k/uL Macrocytosis ABG pH (7.35-7.45) ABG pCO2 (35-45) mmHg ABG pO2 (83-108) mmHg ABG HCO3 (21-25) mmol/L ABG Total CO2 (19-24) mmol/L Sodium (137-145) mmol/L Potassium (3.5-5.1) mmol/L Carbon Dioxide (22-30) mmol/L BUN (7-17) mg/dL Creatinine (0.52-1.04) mg/dL Glucose (74-99) mg/dL POC Glucose (mg/dL) 129 H (70-110) mg/dL Hemoglobin A1c (<=6.0) % Calcium (8.4-10.2) mg/dL AST (14-36) U/L ALT (4-34) U/L Microbiology - Last 24 Hours (Table) 06/07/23 14:20 Gram Stain - Final Sputum Sputum Culture - Final Marla sp,not albicans/galbr
[2023-06-09 11:05] LABS: Glucose,Whole Blood 103 mg/dL (70-110)
--- NOTE | 2023-06-09 11:29 | P.PN ---
Subjective Progress Note Date: 06/09/23 This is a 68-year-old female patient was seen in the endoscopy room as the patient was undergoing an ERCP for choledocholithiasis patient also underwent biliary sphincterectomy and balloon extraction of a total of 3 small stones. Noted the patient presented to the hospital approximately a week ago for e pigastric pain along with nausea and vomiting and subsequently patient was found to have elevated and in the bilirubin and transaminitis. CAT scan of the abdomen pelvis showed gallstones and the patient underwent a cholecystectomy approximately 2 days ago. The patient continues to have issues with pain and elevation in LFTs. Based on that, the patient underwent an ERCP today. Note that following the procedure, the patient was being flipped around and end-tidal CO2 was found to be extremely low and subsequently the patient was found to be unresponsive. At that time the patient was still intubated. She was blue. She was pulseless. The rhythm could not be established as the patient did not have the leads on her chest. Immediately, CPR was initiated and the patient was given 1 round of epinephrine and subsequently a dose of epinephrine for bradycardia. She received CPR for total of 2 to 3 minutes and subsequently there was return of spontaneous circulation and a blood pressure. The patient was kept intubated and patient got transferred to the intensive care unit. She is a morbidly obese female patient who weighs 100 on 144 kg and she has a body mass index of 56.2. I saw the patient in the endoscopy room and I also examined the patient in the ICU. The chest x-ray that was done showed cardiomegaly with mild pulm vessel congestion. He did she was in a good location. Inserted triple-lumen catheter and arterial line on this patient for blood pressure monitoring and hemodynamic support. At this point in time, the patient is normotensive. Blood gas showed a pH of 7.47 with a pCO2 of 35 and a pO2 of 316. This was on FiO2 of 100% with a PEEP of 5 and a total volume of 400 with a rate of 28. Morning c blood work showed a white cell count of 7.5 with a hemoglobin 8.2. Sodium was at 132, serum bicarb was at 23 with a BUN of 31 and a creatinine of 4.5. The patient also had a gamma GT of 331, AST of 80, ALT of 52, alkaline phosphatase of 506 and the patient's bilirubin was at 2.8. Lipase level was at 97. Note that the patient has end-stage renal disease on HD undergoes hemodialysis. The last hemodialysis session was yesterday with a total of 2 L of fluid removed. She also has hypertension, hypothyroidism, diabetes mellitus type 2 and the patient has been maintained on Humalog 22 units with meals and Lantus 23 units twice a day along with a sliding scale coverage. The patient has issues with chronic anemia. No history of any previous cardiac disease to my knowledge. A cardiac stress test was done preoperatively on 06/03/2023 showed no evidence of any reversible ischemia and the patient had an ejection fraction of 40%. Noted the patient surgery was done on 06/03/2023 and the patient underwent a laparoscopic cholecystectomy. Surgical wound site is dry clean and intact at this point in time. On today's evaluation of 06/08/2023, the patient remains intubated on mechanical ventilator. The patient is postcardiac arrest and this was a brief cardiopulmonary arrest as discussed earlier. This morning, the patient is adequately sedated propofol running at 30 mcg/kg/min. IV fluids are currently at KVO. She remains on mechanical ventilator, assist-control mode with rate of 28, tidal volume of 400, FiO2 of 40% with a PEEP of 5. Blood gas shows a pH of 7.52 with a pCO2 of 32 and pO2 of 68. The patient underwent a bout of hemodialysis yesterday with a total of 1 l of ultrafiltration and repeat chest x-ray from today is still showing worsening interstitial edema and the patient has a small right-sided pleural effusion and persistent left retrocardiac opacity consistent with pleural effusion. The patient is going to undergo another session of hemodialysis today. Hemodynamically, the patient is stable and she is on no pressors. IV fluids at KVO. No urine output. The blood work shows an obese, 7.9, hemoglobin is 8.3 and platelet count of 121. Sodium is at 132, BUN is at 37 with a creatinine of 5.7 and his sugar is at 140. Troponin from yesterday was 0.026. The patient remains on Rocephin and Flagyl. The patient is also on 32 units of Levemir insulin twice a day in addition to NovoLog sliding scale coverage. General surgery is on the case. Nephrology on the case. LFTs from today are still pending. On today's evaluation of 06/09/2023, the patient is still intubated on the mechanical ventilator. Chest x-ray still showing pulm edema and bilateral pleural effusions. The patient underwent hemodialysis yesterday and a total of 4 L of fluid was removed. Making recommendations for another session of hemodialysis today. She remains on norepinephrine 0.04 mcg/kg/min. She is on propofol at 30 mcg/kg/h and she is arousable once of sedation. The patient is on IV fluids at KVO. No urine output. Low-dose norepinephrine is still running. NG tube is in place and output is minimal at this point in time. She is on assist-control mode of mechanical ventilation at rate of 28, tidal volume of 400, FiO2 of 35 % and PEEP of 5, and the blood gas from today shows a pH of 7.56 with a pCO2 of 29 and pO2 of 76. BUN is at 28 with a creatinine of 5.3 and a sodium levels at 133. The white cell count of 9 with a hemoglobin of 8.4 and a platelet count of 135. She is afebrile. Sputum sample is showing Marla albicans. On a separate note, the patient did have episodes of hypoglycemia. She was taken Levemir insulin and this will be placed on hold. She remains n.p.o. for now. Objective - Vital Signs Vital signs: Vital Signs Temp 95.2 F L 06/09/23 07:00 Pulse 53 L 06/09/23 07:44 Resp 28 H 06/09/23 07:00 BP 119/57 06/09/23 06:00 Pulse Ox 95 06/09/23 07:00 FiO2 35 06/09/23 07:41 Intake & Output 06/08/23 06/09/23 06/09/23 18:59 06:59 18:59 Intake Total 1283.421 621.057 Output Total 2750 0 0 Balance -1466.579 621.057 0 Weight 143.3 kg Intake: IV 250 100 cefTRIAXone 2 gm In 50 Sodium Chloride 0.9% 50 ml @ 100 mls/hr IVPB Q24HR [facility] Rx#:[id number] metroNIDAZOLE-NS PMX 500 200 100 mg In Saline 1 100ml.bag @ 100 mls/hr IVPB Q8HR [facility] Rx#:[id number] Intake, IV Titration 633.421 521.057 Amount Norepinephrine 4 mg In 460.269 299.009 Sodium Chloride 0.9% 250 ml @ 0.03 MCG/KG/MIN 16. 459 mls/hr IV .[id number] [facility] Rx#:[id number] propofoL 1,000 mg In 173.152 222.048 Empty Bag 1 bag @ 15 MCG/ KG/MIN 8.64 mls/hr IV . [id number] [facility] Rx#:[id number] Hemodialysis 400 Output: Gastric Drainage 350 Urine 0 0 0 Hemodialysis 2400 Other: # Bowel Movements 0 0 ABP, PAP, CO, CI - Last Documented Arterial Blood Pressure 120/45 - Exam Patient is currently intubated and on mechanical ventilator. Remains sedated since her procedure. Has not started on propofol yet. Orotracheal and orogastric tube are both in place. She is morbidly obese with a BMI of 36.2. Head exam was generally normal. There was no scleral icterus or corneal arcus. Mucous membranes were moist. Neck was supple and without jugular venous distension, thyromegaly, or carotid bruits. Carotids were easily palpable bilaterally. There was no adenopathy. Lung sounds are diminished and the patient is scattered rhonchi heard throughout the lung ricks bilaterally. Heart sounds are irregular, positive S1-S2 without any significant murmurs appreciated. Overall heart sounds are distant. Abdominal exam revealed normal bowel sounds. The abdomen was soft, non-tender, and without masses, organomegaly, or appreciable enlargement of the abdominal aorta. Patient is morbidly obese and the organs cannot be accurately palpated. Examination of the extremities revealed easily palpable radial, femoral and pedal pulses. There was no cyanosis, clubbing or edema. Examination of the skin revealed no evidence of significant rashes, suspicious appearing nevi or other concerning lesions. Neurologically, the patient is still unresponsive. Not following any commands. Withdraws to painful stimulation. - Labs CBC & Chem 7: 06/09/23 04:25 06/09/23 04:25 Labs: Abnormal Lab Results - Last 24 Hours (Table) 06/08/23 06/08/23 06/08/23 Range/Units 04:25 04:25 17:55 RBC (3.80-5.40) m/uL Hgb (11.4-16.0) gm/dL Hct (34.0-46.0) % MCV (80.0-100.0) fL RDW (11.5-15.5) % Plt Count (150-450) k/uL Macrocytosis ABG pH (7.35-7.45) ABG pCO2 (35-45) mmHg ABG pO2 (83-108) mmHg ABG HCO3 (21-25) mmol/L ABG Total CO2 (19-24) mmol/L Sodium (137-145) mmol/L Potassium (3.5-5.1) mmol/L Carbon Dioxide (22-30) mmol/L BUN (7-17) mg/dL Creatinine (0.52-1.04) mg/dL Glucose (74-99) mg/dL POC Glucose (mg/dL) 58 L (70-110) mg/dL Hemoglobin A1c 6.1 H (<=6.0) % Calcium (8.4-10.2) mg/dL AST 69 H (14-36) U/L ALT 48 H (4-34) U/L 06/08/23 06/09/23 06/09/23 Range/Units 18:07 00:33 00:34 RBC (3.80-5.40) m/uL Hgb (11.4-16.0) gm/dL Hct (34.0-46.0) % MCV (80.0-100.0) fL RDW (11.5-15.5) % Plt Count (150-450) k/uL Macrocytosis ABG pH (7.35-7.45) ABG pCO2 (35-45) mmHg ABG pO2 (83-108) mmHg ABG HCO3 (21-25) mmol/L ABG Total CO2 (19-24) mmol/L Sodium (137-145) mmol/L Potassium (3.5-5.1) mmol/L Carbon Dioxide (22-30) mmol/L BUN (7-17) mg/dL Creatinine (0.52-1.04) mg/dL Glucose (74-99) mg/dL POC Glucose (mg/dL) 147 H 49 L 48 L (70-110) mg/dL Hemoglobin A1c (<=6.0) % Calcium (8.4-10.2) mg/dL AST (14-36) U/L ALT (4-34) U/L 06/09/23 06/09/23 06/09/23 Range/Units 00:39 01:02 04:25 RBC 2.42 L (3.80-5.40) m/uL Hgb 8.4 L (11.4-16.0) gm/dL Hct 25.5 L (34.0-46.0) % MCV 105.4 H (80.0-100.0) fL RDW 18.2 H (11.5-15.5) % Plt Count 135 L (150-450) k/uL Macrocytosis Marked A ABG pH (7.35-7.45) ABG pCO2 (35-45) mmHg ABG pO2 (83-108) mmHg ABG HCO3 (21-25) mmol/L ABG Total CO2 (19-24) mmol/L Sodium (137-145) mmol/L Potassium (3.5-5.1) mmol/L Carbon Dioxide (22-30) mmol/L BUN (7-17) mg/dL Creatinine (0.52-1.04) mg/dL Glucose (74-99) mg/dL POC Glucose (mg/dL) 49 L 123 H (70-110) mg/dL Hemoglobin A1c (<=6.0) % Calcium (8.4-10.2) mg/dL AST (14-36) U/L ALT (4-34) U/L 06/09/23 06/09/23 06/09/23 Range/Units 04:25 05:40 05:56 RBC (3.80-5.40) m/uL Hgb (11.4-16.0) gm/dL Hct (34.0-46.0) % MCV (80.0-100.0) fL RDW (11.5-15.5) % Plt Count (150-450) k/uL Macrocytosis ABG pH 7.56 H* (7.35-7.45) ABG pCO2 29 L (35-45) mmHg ABG pO2 76 L (83-108) mmHg ABG HCO3 26 H (21-25) mmol/L ABG Total CO2 27 H (19-24) mmol/L Sodium 133 L (137-145) mmol/L Potassium 3.3 L (3.5-5.1) mmol/L Carbon Dioxide 20 L (22-30) mmol/L BUN 28 H (7-17) mg/dL Creatinine 5.36 H (0.52-1.04) mg/dL Glucose 67 L (74-99) mg/dL POC Glucose (mg/dL) 63 L (70-110) mg/dL Hemoglobin A1c (<=6.0) % Calcium 8.0 L (8.4-10.2) mg/dL AST (14-36) U/L ALT (4-34) U/L 06/09/23 Range/Units 06:33 RBC (3.80-5.40) m/uL Hgb (11.4-16.0) gm/dL Hct (34.0-46.0) % MCV (80.0-100.0) fL RDW (11.5-15.5) % Plt Count (150-450) k/uL Macrocytosis ABG pH (7.35-7.45) ABG pCO2 (35-45) mmHg ABG pO2 (83-108) mmHg ABG HCO3 (21-25) mmol/L ABG Total CO2 (19-24) mmol/L Sodium (137-145) mmol/L Potassium (3.5-5.1) mmol/L Carbon Dioxide (22-30) mmol/L BUN (7-17) mg/dL Creatinine (0.52-1.04) mg/dL Glucose (74-99) mg/dL POC Glucose (mg/dL) 129 H (70-110) mg/dL Hemoglobin A1c (<=6.0) % Calcium (8.4-10.2) mg/dL AST (14-36) U/L ALT (4-34) U/L Microbiology - Last 24 Hours (Table) 06/07/23 14:20 Gram Stain - Preliminary Sputum Assessment and Plan Plan: Acute cardiac arrest, exact circumstances are not clear. The patient completed the ERCP and following that, the patient was found to be below and had no pulses. Initial cardiac rhythm has not been established. It is possible that the patient was in a PEA rhythm. The patient receives CPR for a total of 2 to 3 minutes. The patient received a round of epinephrine and she was given atropine and there was return of spontaneous circulation. The patient was already intubated on the mechanical ventilator. The patient remains intubated during the course of the resuscitation. The patient remains intubated on mechanical ventilator. The patient is hemodynamically stable at this point in time. Patient remains on propofol. She is arousable once off sedation. Acute hypoxic respiratory failure secondary to above, currently intubated on mec hanical ventilator. Adequate oxygenation on the follow-up blood gases chest x- ray still showing increase in volume status and overload and small bilateral pleural effusions. Hemodialysis was completed yesterday with a total of 4 L of fluid removed. Nevertheless, the repeat chest x-ray from today shows significant volume overload and bilateral pleural effusions. No weaning trials will be done today. Recommend optimizing volume status and undergoing another session of hemodialysis with ultrafiltration. Acute cholecystitis and the patient is postcholecystectomy that was done on 06/03/2023 Choledocholithiasis post ERCP done on 06/07/2023 with sphincterectomy and extraction of 3 small stones Morbid obesity BMI 56.2 Diabetes mellitus type 2, currently on Levemir insulin 30 units twice daily and NovoLog 22 units with meals and sliding scale coverage. The patient developed episodes of hypoglycemia overnight. Currently adequate blood sugar control. Will hold the Levemir insulin. History of hypertension History of hypothyroidism Abnormal LFTs following cholecystectomy secondary choledocholithiasis. Rule out underlying component of cholangitis in addition. The patient has been covered with IV Rocephin and Flagyl throughout her current hospitalization End-stage renal disease on hemodialysis and the patient is a AV fistula in the right upper extremity. Anemia of chronic disease Plan Keep the patient intubated on mechanical ventilator Will perform another dialysis session today with a larger volume of ultrafiltration, last hemodialysis was done yesterday and the patient had total of 4 L of fluid removed. Chest x-ray showing increased interstitial markings bilaterally and the patient may be an volume overload/CHF. Will proceed with another session of hemodialysis today. This will be discussed with nephrology. The patient is on low-dose norepinephrine running at 0.04 mcg/kg/min. Continue IV Rocephin and Flagyl, same antibiotics will be continued Monitor liver function test post ERCP, awaiting LFTs from today Obtain an echocardiogram, noted the cardiac status has been negative, the patient had a normal preoperative cardiac stress test Start the patient on low-dose enteral feeding for nutritional support. This level placed on hold The patient on propofol for sedation this will be continued for the next 24 hours. Coreg 25 mg p.o. twice a day, DuoNeb updrafts IV Protonix Synthroid and this will be resumed at the same dose. Lovenox 30 mg subcu for DVT prophylaxis Condition is critical and will continue to follow make further recommendations based on her progress. Family will be updated on her condition. There is a critical care evaluation that was done in more than 30 minutes. Time with Patient: Greater than 30
[2023-06-09 11:50] LABS: Glucose,Whole Blood 101 mg/dL (70-110)
--- NOTE | 2023-06-09 12:08 | P.PN ---
Subjective Progress Note Date: 06/09/23 HISTORY OF PRESENT ILLNESS: 68-year-old female 89 office patient who was hospitalized recently at [facility] for abscess and infected armpit area with slight recurrent abdominal discomfort with gallbladder dyskinesia at the time. Patient has end-stage renal disease on hemodialysis 3 times a week also has known to have type 2 diabetes, obstructive sleep apnea, hypertension, hyperlipidemia, hypothyroidism, she brought to the emergency department because of intractable nausea vomiting and diarrhea could not complete dialysis yesterday with worsening fever and chills with abdominal distention without any significant chest pain no bloody stool. Also had infiltrate her fistula which the reason why here hemodialysis was stopped early. With her current symptoms and the significant abnormal liver function test from her last hospitalization which patient was study in detail and found to have biliary hypokinesia via HIDA scan done last month. Patient liver function test this time came back with total bilirubin of 1.9 with AST of 414 and ALT 154 with alkaline phosphatase 224 also lipase of 315 with amylase of 49 which make the diagnosis of subacute pancreatitis as well. Also she continued to have significant anemia with hemoglobin of 8.1 platelet count 1 65, 000 patient creatinine was 6.5 with BUN of 39. Patient was seen and evaluated at the emergency department with above complaint COVID influenza and RSV were negative, CT of the abdomen and pelvis was performed again this time and showed no bowel obstruction with no acute finding identified to the amount of patient's symptoms of the pancreas visualized to be fine with small but prominent calcification on the gallbladder as a gallstone with no surrounding ill-defined fluid and fat stranding. Gallbladder ultrasound was performed again as well and showed hepatomegaly with heterogeneous hyper echoic appearance of the liver suggestive of diffuse fatty infiltrate with hepatocellular disease with no adjacent ascites, gallstones redemonstrated without ultrasound evidence of acute cholecystitis. Patient was hospitalized and consult at this point gastroenterology for her recurrent symptoms with nausea and vomiting to conclude the possibility of gallbladder and gallstone with abnormal liver function test. And also to help to make decision whether her gallbladder should be removed or not. Cardiology consultation for cardiology clearance which patient has no history of cardiac disease no change on her EKG at this point or any change in cardiac enzymes. Nephrology consultation was requested to continue hemodialysis. Also request consult of vascular for her fistula. 06/03/2023: Patient was evaluated through the weekend by cardiology, general surgery, nephrology. Was continued on hemodialysis, also continue on IV antibiotic with Rocephin and Flagyl due to slight concern of leukocytosis. 3 did not have any increased nausea or vomiting no diarrhea, liver function test still slightly bit elevated. Cardiology evaluated patient ordered an echocardiogram and and furthermore decided to do a nuclear stress test before clearing her for surgery. Nuclear stress test scheduled this morning if patient goes through with no problem she will be going for her cholecystectomy as an extent. 06/04/2023: Laboratory values showed slight increase in alkaline phosphatase along with total bilirubin make the possibility of having obstruction of the common bile with stone or other is much higher. Delay patient discharge at this point and should go for an MRCP initially if there is any finding consistent with stone or blockage of the common duct she might need to go for an ERCP to extract stone and stent the area. Will delay discharge till this is done and cleared in the meanwhile repeat labs again tomorrow. Patient hemodialysis days today which we will continue to do as an inpatient. 06/05/2023: Patient MRCP came back with several area of calcification in the common duct consistent with cholelithiasis. Patient will be seen gastroenterology for ERCP probably to extract the stone and probably do stent in the common duct. 06/06/2023: After finishing the MRCP and finding more calcification and possibly stone across the common duct patient liver enzymes continue to be elevated total bilirubin still at 2.8 right alk phos 541 AST 59 ALT 62, specially with the current findings will require to go for an ERCP and possible required to extract the stone and put a stent in the common duct. Apparently gastroenterology are planning to do this procedure on Saturday. Meanwhile patient is asymptomatic continue clear liquid diet and advance gradually and dialysis will be done today as well. 06/07/2023: Patient ended up going for her ERCP 3 stones were extracted through the procedure but shortly after procedure she coded and required resuscitation lasted for over a few minutes after giving her atropine patient pulse rate returned but she was intubated and transferred to the ICU at this point. Patient has been resting in the ICU after the current complication, family apparently were updated by gastroenterology along with agricultural service technician. Continue to do the complication currently patient is not conscious but resting comfortably i n the ICU. 06/08/2023: Patient remain in the ICU on mechanical ventilation, still on vasopressor, she will be going for dialysis today. Her level of responsiveness still limited. Labs today with hemoglobin is 8.3 liver function test were not done will add it to the lab done today. She is still seen pulmonary and cardiology she is still quite hypotensive with pulse rate is down remain on Levophed at this point try to keep her blood pressure systolic above 100. 06/09/2023: She is still intubated on mechanical ventilation she is fluid overload still on vasopressor that she is awake alert will be hopefully extubated tomorrow with her fluid overload will be on hemodialysis today which will help some. Her laboratory value with hemoglobin is 8.4 white blood cell 9.0 ABG still showing blood patient had quite with respiratory alkalosis. Also still required a smaller dose of vasopressor. Will initiate feeding via NG tube today. REVIEW OF SYSTEMS: CONSTITUTIONAL: Sedated on mechanical ventilation.. EYES: No icterus sclerae, no conjunctivitis. EARS, NOSE, MOUTH, THROAT, and FACE: No sore throat, lymphadenopathy, carotid bruits or deformity. RESPIRATORY: Slight shortness of breath no cough or wheezes.. CARDIOVASCULAR: Positive PND orthopnea palpitation no angina.. GASTROINTESTINAL: Positive abdominal pain with nausea vomiting diarrhea no constipation no acute gastrointestinal bleed no distention or masses.. GENITOURINARY: Decreased urine output she is on hemodialysis.. INTEGUMENT/BREAST: Negative for any muscular injury with mild osteoarthritis.. HEMATOLOGIC/LYMPHATIC: Chronic anemia and hematoma around the fistula graft.. MUSCULOSKELTAL: Negative for Myalgia or arthralgia. NEURLOGICAL: No LOC, Sz or syncope, blurred vision dizziness or abnormality.. BEHAVIORAL/PSYCH: Negative. ENDOCRINE: Negative. PHYSICAL EXAMINATION: General Appearance: Sedated on mechanical ventilation with the ET tube and NG tube are in.. Neck HEENT: Supple, no lymphadenopathy, no thyroid enlargement, no carotid bruits. Lungs: Positive fine rhonchi in the bases with crackles mostly limited area on the right side no wheezes. Chest Wall: Decreased expansion with deep inspiration no tenderness and no deformity was found on exam, no costochondral pain or discomfort. Heart: Regular rate and rhythm, S1, S2 normal, no murmur, rub or gallop. Back: Symmetric, no curvature, ROM normal, no CVA tenderness. Abdomen: Soft with slight tenderness in the mid epigastric and right upper quadrant area no rebound or rigidity slight hepatomegaly not able to feel any splenomegaly at this point and very limited amount of ascites. Extremities: Trace edema, her fistula graft in the left side has slight hematoma on the side. Pulses: 2+ and symmetric. Skin: Skin color, texture, tugor normal, no rashes or lesions. Neurologic: Alert oriented x3 cranial nerves II through XII intact, no motor deficit, no abnormal balance or gait. ASSESSMENT AND PLAN: _Postcardiac arrest not a clear etiology could be PEA or arrhythmia or could be aggravation from the ERCP specially with ascending cholangitis. Patient still covered currently continue vent management continue to watch for any arrhythmia. Still bradycardic. _Acute hypoxic respiratory failure: Remain on mechanical ventilation currently. Still on mechanical ventilation oxygenation is well good. _Ascending cholangitis: Still been treated with IV antibiotic at this point doing well no positive culture white blood cell is better. _Obstructive common duct with gallstone post 3 stone extracted via ERCP along with skin neurectomy. _Acute on subacute pancreatitis now retrospectively This is a result of gallstone passed into the common duct and blocked the pancreatic duct causing pancreatitis. Fortunately pancreatitis is resolved at this point but continue to see more evidence of common duct stone. _Gallstone without any acute cholecystitis: With the possibility of possible common duct stone passing black the pancreatic duct causing subacute pancreatitis patient will remain on antibiotic for treating this? Of ascending cholangitis till infection is clear out till the gallbladder is out. Again after taking her gallbladder out doing an MRCP is showing some common duct stone. ERCP will be needed to extract the stone. _gallbladder dyskinesia with recurrent symptoms of gallstone: Post laparoscopic cholecystectomy successful except still have some stone in the common duct. _Elevated liver function test again following surgery: Post 3 stent removed with ERCP we will repeat liver function test again. _ Common duct stone: Just had 3 stone removed of the common duct via ERCP. _End-stage renal disease: Will require hemodialysis today. _Hypertension: For patient to be maintained on medication was doing midodrine before now the blood pressure being low still on vasopressor with Levophed. _Hypothyroidism: Continue levothyroxine 225 mcg daily on Saturday the rest of the week is on 50 mcg. _Type 2 diabetes: Blood sugar has been low will hold off on long-acting insulin keep patient on Accu-Chek with sliding scale coverage only for the next 24 hours. _Chronic anemia: Iron deficiency from end-stage renal disease continue to watch hemoglobin and iron level continue Procrit. Complication: She is remain on mechanical ventilation today hemodialysis will be done hopefully reduce fluid overload till tomorrow. Objective - Vital Signs Vital signs: Vital Signs Temp 95.2 F L 06/09/23 07:00 Pulse 53 L 06/09/23 07:44 Resp 28 H 06/09/23 07:00 BP 119/57 06/09/23 06:00 Pulse Ox 95 06/09/23 07:00 FiO2 35 06/09/23 07:41 Intake & Output 06/08/23 06/09/23 06/09/23 18:59 06:59 18:59 Intake Total 1283.421 621.057 Output Total 2750 0 0 Balance -1466.579 621.057 0 Weight 143.3 kg Intake: IV 250 100 cefTRIAXone 2 gm In 50 Sodium Chloride 0.9% 50 ml @ 100 mls/hr IVPB Q24HR [facility] Rx#:[id number] metroNIDAZOLE-NS PMX 500 200 100 mg In Saline 1 100ml.bag @ 100 mls/hr IVPB Q8HR [facility] Rx#:[id number] Intake, IV Titration 633.421 521.057 Amount Norepinephrine 4 mg In 460.269 299.009 Sodium Chloride 0.9% 250 ml @ 0.03 MCG/KG/MIN 16. 459 mls/hr IV .[id number] [facility] Rx#:[id number] propofoL 1,000 mg In 173.152 222.048 Empty Bag 1 bag @ 15 MCG/ KG/MIN 8.64 mls/hr IV . [id number] [facility] Rx#:[id number] Hemodialysis 400 Output: Gastric Drainage 350 Urine 0 0 0 Hemodialysis 2400 Other: # Bowel Movements 0 0 ABP, PAP, CO, CI - Last Documented Arterial Blood Pressure 120/45 - Labs CBC & Chem 7: 06/09/23 04:25 06/09/23 04:25 Labs: Abnormal Lab Results - Last 24 Hours (Table) 06/08/23 06/08/23 06/08/23 Range/Units 04:25 04:25 17:55 RBC (3.80-5.40) m/uL Hgb (11.4-16.0) gm/dL Hct (34.0-46.0) % MCV (80.0-100.0) fL RDW (11.5-15.5) % Plt Count (150-450) k/uL Macrocytosis ABG pH (7.35-7.45) ABG pCO2 (35-45) mmHg ABG pO2 (83-108) mmHg ABG HCO3 (21-25) mmol/L ABG Total CO2 (19-24) mmol/L Sodium (137-145) mmol/L Potassium (3.5-5.1) mmol/L Carbon Dioxide (22-30) mmol/L BUN (7-17) mg/dL Creatinine (0.52-1.04) mg/dL Glucose (74-99) mg/dL POC Glucose (mg/dL) 58 L (70-110) mg/dL Hemoglobin A1c 6.1 H (<=6.0) % Calcium (8.4-10.2) mg/dL AST 69 H (14-36) U/L ALT 48 H (4-34) U/L 06/08/23 06/09/23 06/09/23 Range/Units 18:07 00:33 00:34 RBC (3.80-5.40) m/uL Hgb (11.4-16.0) gm/dL Hct (34.0-46.0) % MCV (80.0-100.0) fL RDW (11.5-15.5) % Plt Count (150-450) k/uL Macrocytosis ABG pH (7.35-7.45) ABG pCO2 (35-45) mmHg ABG pO2 (83-108) mmHg ABG HCO3 (21-25) mmol/L ABG Total CO2 (19-24) mmol/L Sodium (137-145) mmol/L Potassium (3.5-5.1) mmol/L Carbon Dioxide (22-30) mmol/L BUN (7-17) mg/dL Creatinine (0.52-1.04) mg/dL Glucose (74-99) mg/dL POC Glucose (mg/dL) 147 H 49 L 48 L (70-110) mg/dL Hemoglobin A1c (<=6.0) % Calcium (8.4-10.2) mg/dL AST (14-36) U/L ALT (4-34) U/L 06/09/23 06/09/23 06/09/23 Range/Units 00:39 01:02 04:25 RBC 2.42 L (3.80-5.40) m/uL Hgb 8.4 L (11.4-16.0) gm/dL Hct 25.5 L (34.0-46.0) % MCV 105.4 H (80.0-100.0) fL RDW 18.2 H (11.5-15.5) % Plt Count 135 L (150-450) k/uL Macrocytosis Marked A ABG pH (7.35-7.45) ABG pCO2 (35-45) mmHg ABG pO2 (83-108) mmHg ABG HCO3 (21-25) mmol/L ABG Total CO2 (19-24) mmol/L Sodium (137-145) mmol/L Potassium (3.5-5.1) mmol/L Carbon Dioxide (22-30) mmol/L BUN (7-17) mg/dL Creatinine (0.52-1.04) mg/dL Glucose (74-99) mg/dL POC Glucose (mg/dL) 49 L 123 H (70-110) mg/dL Hemoglobin A1c (<=6.0) % Calcium (8.4-10.2) mg/dL AST (14-36) U/L ALT (4-34) U/L 06/09/23 06/09/23 06/09/23 Range/Units 04:25 05:40 05:56 RBC (3.80-5.40) m/uL Hgb (11.4-16.0) gm/dL Hct (34.0-46.0) % MCV (80.0-100.0) fL RDW (11.5-15.5) % Plt Count (150-450) k/uL Macrocytosis ABG pH 7.56 H* (7.35-7.45) ABG pCO2 29 L (35-45) mmHg ABG pO2 76 L (83-108) mmHg ABG HCO3 26 H (21-25) mmol/L ABG Total CO2 27 H (19-24) mmol/L Sodium 133 L (137-145) mmol/L Potassium 3.3 L (3.5-5.1) mmol/L Carbon Dioxide 20 L (22-30) mmol/L BUN 28 H (7-17) mg/dL Creatinine 5.36 H (0.52-1.04) mg/dL Glucose 67 L (74-99) mg/dL POC Glucose (mg/dL) 63 L (70-110) mg/dL Hemoglobin A1c (<=6.0) % Calcium 8.0 L (8.4-10.2) mg/dL AST (14-36) U/L ALT (4-34) U/L 06/09/23 Range/Units 06:33 RBC (3.80-5.40) m/uL Hgb (11.4-16.0) gm/dL Hct (34.0-46.0) % MCV (80.0-100.0) fL RDW (11.5-15.5) % Plt Count (150-450) k/uL Macrocytosis ABG pH (7.35-7.45) ABG pCO2 (35-45) mmHg ABG pO2 (83-108) mmHg ABG HCO3 (21-25) mmol/L ABG Total CO2 (19-24) mmol/L Sodium (137-145) mmol/L Potassium (3.5-5.1) mmol/L Carbon Dioxide (22-30) mmol/L BUN (7-17) mg/dL Creatinine (0.52-1.04) mg/dL Glucose (74-99) mg/dL POC Glucose (mg/dL) 129 H (70-110) mg/dL Hemoglobin A1c (<=6.0) % Calcium (8.4-10.2) mg/dL AST (14-36) U/L ALT (4-34) U/L Microbiology - Last 24 Hours (Table) 06/07/23 14:20 Gram Stain - Preliminary Sputum
[2023-06-09 14:00] LABS: Glucose,Whole Blood 106 mg/dL (70-110)
[2023-06-09] MEDS: HYDROmorphone 1 MG/ML 1 ML SYRINGE IVP PRN (14:55)
[2023-06-09 18:17] LABS: Glucose,Whole Blood 115 mg/dL (70-110)
[2023-06-09 21:25] LABS: Glucose,Whole Blood 128 mg/dL (70-110)
[2023-06-09 23:47] LABS: Glucose,Whole Blood 135 mg/dL (70-110)
[2023-06-10 04:32] LABS: Glucose,Whole Blood 151 mg/dL (70-110)
[2023-06-10 05:14] LABS: African American GFR (CKD) 7 (>60 ml/min/1.73 sqM); Anion Gap 13 mmol/L; Blood Urea Nitrogen 30 mg/dL (7-17); Calcium 7.8 mg/dL (8.4-10.2); Carbon Dioxide 18 mmol/L (22-30); Chloride 99 mmol/L (98-107); Glucose 139 mg/dL (74-99); Non-African American GFR(CKD) 6 (>60 ml/min/1.73 sqM); Potassium 4.4 mmol/L (3.5-5.1); Sodium 130 mmol/L (137-145)
[2023-06-10 05:27] LABS: Anisocytosis Slight; Basophils # (A) 0.1 k/uL (0-0.2); Basophils % (A) 1 %; Eosinophils # (A) 0.3 k/uL (0-0.7); Eosinophils % (A) 3 %; HCT 25.7 % (34.0-46.0); HGB 8.4 gm/dL (11.4-16.0); Lymphocytes # (A) 1.5 k/uL (1.0-4.8); Lymphocytes % (A) 16 %; MCHC 32.6 g/dL (31.0-37.0); MCV 107.1 fL (80.0-100.0); Macrocytosis Marked; Mean Platelet Volume 10.9; Monocytes # (A) 0.4 k/uL (0-1.0); Monocytes % (A) 4 %; Neutrophils # (A) 6.9 k/uL (1.3-7.7); Neutrophils % (A) 74 %; Platelet Count 129 k/uL (150-450); RDW 17.9 % (11.5-15.5); WBC 9.3 k/uL (3.8-10.6)
[2023-06-10 05:56] LABS: Polychromasia Present
[2023-06-10 06:02] LABS: ABG Base Excess -0.9 mmol/L; ABG HCO3 24 mmol/L (21-25); ABG PCO2 38 mmHg (35-45); ABG PO2 117 mmHg (83-108); ABG TCO2 25 mmol/L (19-24); Allen Test Performed? Yes
--- NOTE | 2023-06-10 07:05 | XR ---
EXAMINATION TYPE: XR chest 1V portable DATE OF EXAM: 06/10/2023 COMPARISON: 06/09/2023 INDICATION: Tube placement TECHNIQUE: Single frontal view of the chest is obtained. FINDINGS: The heart size is enlarged. The pulmonary vasculature is normal. Right lower lobe infiltrate is present. There is silhouetting the left diaphragm. Left lower lobe inf iltrates likely present. Endotracheal tube tip is above the antwon. Nasogastric tube transverses the thorax. IMPRESSION: 1. Bibasilar infiltrates, worsening from comparison. 2. Lines and catheters discussed above
--- NOTE | 2023-06-10 10:42 | PN ---
PROGRESS NOTE This lady has sepsis and apparently had an ERCP sphincterotomy and following that went into a cardiac arrest, details are not clear. There was no night monitor at that time. She is being weaned of the Levophed. She is the patient on chronic hemodialysis with end-stage renal disease. However, at this time, her hemodynamically status is fairly stable. She is on antibiotics. Details of the cardiac arrest are unavailable. However, LV function is fairly well preserved. Troponins are normal. She is maintaining sinus rhythm. S1, S2 heard normally. Lungs reveal bilateral ventricular assisted breath sounds. Abdomen is soft. Lower extremities reveal diminished pulses. Central nervous system assessment was not performed. I have no new suggestions from a cardiac standpoint at this time. I would recommend that we continue to wean the Levophed as soon as the patient's dialysis is completed. The details with regard to the cardiac arrest are somewhat unclear. She is only on a small dose of Levophed which can be weaned off. I would avoid any QT prolonging medications. Continue all other medications. PHYSICAL EXAM: VITAL SIGNS: Revealed vitals are stable. The patient is currently on hemodialysis. HEART: S1, S2 heard normally. No significant murmurs. LUNGS: Revealed bilateral ventilator-assisted breath sounds. ABDOMEN: Soft. EXTREMITIES: Lower extremities reveal diminished pulses. Central nervous system assessment was not performed. Prognosis remains guarded. MMODL / IJN: [id number] /
--- NOTE | 2023-06-10 11:33 | P.PN ---
Subjective Patient is seen in follow-up for end-stage renal disease. She is maintained on hemodialysis on Saturday schedule. Tolerating dialysis well. Tube feeds to be started today. Currently intubated. On Levophed. Vital signs are stable. On Levophed. General: Resting in bed. HEENT: Intubated. LUNGS: Scattered rhonchi. HEART: Rate and Rhythm are regular. ABDOMEN: Obese, no distention. EXTREMITITES: Trace edema. Objective - Vital Signs Vital signs: Vital Signs Temp 97.2 F L 06/10/23 04:00 Pulse 58 L 06/10/23 11:21 Resp 16 06/10/23 07:00 BP 127/53 06/10/23 06:15 Pulse Ox 97 06/10/23 07:00 FiO2 35 06/10/23 11:07 Intake & Output 06/09/23 06/10/23 06/10/23 18:59 06:59 18:59 Intake Total 1165.421 903.110 94.324 Output Total 10 0 0 Balance 1155.421 903.110 94.324 Weight 148.6 kg 148.6 kg Intake: IV 350 100 cefTRIAXone 2 gm In 50 Sodium Chloride 0.9% 50 ml @ 100 mls/hr IVPB Q24HR [facility] Rx#:[id number] metroNIDAZOLE-NS PMX 500 300 100 mg In Saline 1 100ml.bag @ 100 mls/hr IVPB Q8HR [facility] Rx#:[id number] Intake, IV Titration 815.421 803.110 94.324 Amount Norepinephrine 4 mg In 569.469 611.254 28.804 Sodium Chloride 0.9% 250 ml @ 0.03 MCG/KG/MIN 16. 459 mls/hr IV .[id number] [facility] Rx#:[id number] propofoL 1,000 mg In 245.952 191.856 65.52 Empty Bag 1 bag @ 15 MCG/ KG/MIN 8.64 mls/hr IV . [id number] [facility] Rx#:[id number] Output: Gastric Drainage 10 Urine 0 0 0 Other: # Bowel Movements 0 ABP, PAP, CO, CI - Last Documented Arterial Blood Pressure 121/37 - Labs CBC & Chem 7: 06/10/23 04:30 06/10/23 04:30 Labs: Abnormal Lab Results - Last 24 Hours (Table) 06/09/23 06/09/23 06/09/23 Range/Units 18:16 21:23 23:46 RBC (3.80-5.40) m/uL Hgb (11.4-16.0) gm/dL Hct (34.0-46.0) % MCV (80.0-100.0) fL RDW (11.5-15.5) % Plt Count (150-450) k/uL Macrocytosis ABG pO2 (83-108) mmHg ABG Total CO2 (19-24) mmol/L ABG O2 Saturation (94-97) % Sodium (137-145) mmol/L Carbon Dioxide (22-30) mmol/L BUN (7-17) mg/dL Creatinine (0.52-1.04) mg/dL Glucose (74-99) mg/dL POC Glucose (mg/dL) 115 H 128 H 135 H (70-110) mg/dL Calcium (8.4-10.2) mg/dL 06/10/23 06/10/23 06/10/23 Range/Units 04:30 04:30 04:31 RBC 2.40 L (3.80-5.40) m/uL Hgb 8.4 L (11.4-16.0) gm/dL Hct 25.7 L (34.0-46.0) % MCV 107.1 H (80.0-100.0) fL RDW 17.9 H (11.5-15.5) % Plt Count 129 L (150-450) k/uL Macrocytosis Marked A ABG pO2 (83-108) mmHg ABG Total CO2 (19-24) mmol/L ABG O2 Saturation (94-97) % Sodium 130 L (137-145) mmol/L Carbon Dioxide 18 L (22-30) mmol/L BUN 30 H (7-17) mg/dL Creatinine 6.49 H (0.52-1.04) mg/dL Glucose 139 H (74-99) mg/dL POC Glucose (mg/dL) 151 H (70-110) mg/dL Calcium 7.8 L (8.4-10.2) mg/dL 06/10/23 Range/Units 06:00 RBC (3.80-5.40) m/uL Hgb (11.4-16.0) gm/dL Hct (34.0-46.0) % MCV (80.0-100.0) fL RDW (11.5-15.5) % Plt Count (150-450) k/uL Macrocytosis ABG pO2 117 H (83-108) mmHg ABG Total CO2 25 H (19-24) mmol/L ABG O2 Saturation 98.0 H (94-97) % Sodium (137-145) mmol/L Carbon Dioxide (22-30) mmol/L BUN (7-17) mg/dL Creatinine (0.52-1.04) mg/dL Glucose (74-99) mg/dL POC Glucose (mg/dL) (70-110) mg/dL Calcium (8.4-10.2) mg/dL Microbiology - Last 24 Hours (Table) 06/07/23 14:20 Gram Stain - Final Sputum Sputum Culture - Final Marla sp,not albicans/galbr Assessment and Plan Plan: Assessment: 1. End-stage renal disease maintained on hemodialysis on Saturday schedule via AV graft. 2. Infiltrated AV graft. Seen by vascular surgery. Now being used. 3. Nausea and vomiting. CT showed no acute process. Status post laparoscopic cholecystectomy this admission. Also underwent ERCP with 3 small stones extracted. 4. Volume overload. Improving with ultrafiltration. 5. Hypotension maintained on midodrine. Now on Levophed. 6. Diabetes mellitus. 7. Chronic kidney disease mineral bone disease maintained on Renvela. 8. Anemia of chronic kidney disease. On Aranesp. 9. Status postcardiac arrest. 10. Hypokalemia from poor intake. Replaced. Better. 11. Metabolic acidosis secondary to chronic kidney disease. Expect improvement postdialysis. Plan: Currently seen while undergoing hemodialysis. Receiving an extra treatment today mostly for ultrafiltration. Another treatment tomorrow per her outpatient schedule. Maintain midodrine. Hold for systolic blood pressure greater than 110. Wean Levophed. Wean FiO2.
[2023-06-10 11:46] LABS: Glucose,Whole Blood 128 mg/dL (70-110)
--- NOTE | 2023-06-10 13:21 | P.PN ---
Subjective Progress Note Date: 06/10/23 Principal diagnosis: Cardiac arrest This is a 68-year-old female patient was seen in the endoscopy room as the patient was undergoing an ERCP for choledocholithiasis patient also underwent biliary sphincterectomy and balloon extraction of a total of 3 small stones. Noted the patient presented to the hospital approximately a week ago for epigastric pain along with nausea and vomiting and subsequently patient was found to have elevated and in the bilirubin and transaminitis. CAT scan of the abdomen pelvis showed gallstones and the patient underwent a cholecystectomy approximately 2 days ago. The patient continues to have issues with pain and elevation in LFTs. Based on that, the patient underwent an ERCP today. Note that following the procedure, the patient was being flipped around and end-tidal CO2 was found to be extremely low and subsequently the patient was found to be unresponsive. At that time the patient was still intubated. She was blue. She was pulseless. The rhythm could not be established as the patient did not have the leads on her chest. Immediately, CPR was initiated and the patient was given 1 round of epinephrine and subsequently a dose of epinephrine for bradycardia. She received CPR for total of 2 to 3 minutes and subsequently ther e was return of spontaneous circulation and a blood pressure. The patient was kept intubated and patient got transferred to the intensive care unit. She is a morbidly obese female patient who weighs 100 on 144 kg and she has a body mass index of 56.2. I saw the patient in the endoscopy room and I also examined the patient in the ICU. The chest x-ray that was done showed cardiomegaly with mild pulm vessel congestion. He did she was in a good location. Inserted triple- lumen catheter and arterial line on this patient for blood pressure monitoring and hemodynamic support. At this point in time, the patient is normotensive. Blood gas showed a pH of 7.47 with a pCO2 of 35 and a pO2 of 316. This was on FiO2 of 100% with a PEEP of 5 and a total volume of 400 with a rate of 28. Morning c blood work showed a white cell count of 7.5 with a hemoglobin 8.2. Sodium was at 132, serum bicarb was at 23 with a BUN of 31 and a creatinine of 4.5. The patient also had a gamma GT of 331, AST of 80, ALT of 52, alkaline phosphatase of 506 and the patient's bilirubin was at 2.8. Lipase level was at 97. Note that the patient has end-stage renal disease on HD undergoes hemodialysis. The last hemodialysis session was yesterday with a total of 2 L of fluid removed. She also has hypertension, hypothyroidism, diabetes mellitus type 2 and the patient has been maintained on Humalog 22 units with meals and Lantus 23 units twice a day along with a sliding scale coverage. The patient has issues with chronic anemia. No history of any previous cardiac disease to my knowledge. A cardiac stress test was done preoperatively on 06/03/2023 showed no evidence of any reversible ischemia and the patient had an ejection fraction of 40%. Noted the patient surgery was done on 06/03/2023 and the patient underwent a laparoscopic cholecystectomy. Surgical wound site is dry clean and intact at this point in time. On today's evaluation of 06/08/2023, the patient remains intubated on mechanical ventilator. The patient is postcardiac arrest and this was a brief cardiopulmonary arrest as discussed earlier. This morning, the patient is adequately sedated propofol running at 30 mcg/kg/min. IV fluids are currently at KVO. She remains on mechanical ventilator, assist-control mode with rate of 28, tidal volume of 400, FiO2 of 40% with a PEEP of 5. Blood gas shows a pH of 7.52 with a pCO2 of 32 and pO2 of 68. The patient underwent a bout of hemodialysis yesterday with a total of 1 l of ultrafiltration and repeat chest x-ray from today is still showing worsening interstitial edema and the patient has a small right-sided pleural effusion and persistent left retrocardiac opacity consistent with pleural effusion. The patient is going to undergo another session of hemodialysis today. Hemodynamically, the patient is stable and she is on no pressors. IV fluids at KVO. No urine output. The blood work shows an obese, 7.9, hemoglobin is 8.3 and platelet count of 121. Sodium is at 132, BUN is at 37 with a creatinine of 5.7 and his sugar is at 140. Troponin from yesterday was 0.026. The patient remains on Rocephin and Flagyl. The patient is also on 32 units of Levemir insulin twice a day in addition to NovoLog sliding scale coverage. General surgery is on the case. Nephrology on the case. LFTs from today are still pending. On today's evaluation of 06/09/2023, the patient is still intubated on the mechanical ventilator. Chest x-ray still showing pulm edema and bilateral pl eural effusions. The patient underwent hemodialysis yesterday and a total of 4 L of fluid was removed. Making recommendations for another session of hemodialysis today. She remains on norepinephrine 0.04 mcg/kg/min. She is on propofol at 30 mcg/kg/h and she is arousable once of sedation. The patient is on IV fluids at KVO. No urine output. Low-dose norepinephrine is still running. NG tube is in place and output is minimal at this point in time. She is on assist-control mode of mechanical ventilation at rate of 28, tidal volume of 400, FiO2 of 35 % and PEEP of 5, and the blood gas from today shows a pH of 7.56 with a pCO2 of 29 and pO2 of 76. BUN is at 28 with a creatinine of 5.3 and a sodium levels at 133. The white cell count of 9 with a hemoglobin of 8.4 and a platelet count of 135. She is afebrile. Sputum sample is showing Marla albicans. On a separate note, the patient did have episodes of hypoglycemia. She was taken Levemir insulin and this will be placed on hold. She remains n.p.o. for now. Patient was seen today on 06/10/2023, remains intubated and mechanically ventilated. Patient is on assist-control rate of 16 tidal volume 400 FiO2 35% PEEP of 5 ABG showed a pO2 of 117 pCO2 38 pH of 7.40, hence no changes were made today. Vent settings remain the same. Patient is undergoing hemodialysis, still requiring pressors/norepinephrine at 0.09 mcg/kg/min still on propofol at 35 mcg/kg/min patient is receiving tube feeding. She is receiving hemodialysis today and this is scheduled for Saturday and Saturday. Looking back at the note, on 06/06, patient underwent ERCP, and she developed a cardiac arrest. Her initial admission date was on 05/29. When the patient had CPR, she was actually in pulseless electrical activity she did receive CPR epinephrine and atropine. Received CPR for anywhere between 2 to 3 minutes, and there was return of spontaneous circulation and the blood pressure. WBC count today is 9.3 hemoglobin is 8.4. Basic metabolic profile is normal bicarb is 18 BUN is 30, creatinine 6.49 chest x-ray is showing worsening infiltrates/pneumonia. Bilateral airspace disease. Objective - Vital Signs Vital signs: Vital Signs Temp 95.8 F L 06/10/23 12:00 Pulse 56 L 06/10/23 12:00 Resp 15 06/10/23 12:00 BP 126/50 06/10/23 11:30 Pulse Ox 98 06/10/23 12:00 FiO2 35 06/10/23 12:00 Intake & Output 06/09/23 06/10/23 06/10/23 18:59 06:59 18:59 Intake Total 1165.421 903.110 406.356 Output Total 10 0 0 Balance 1155.421 903.110 406.356 Weight 148.6 kg 148.6 kg Intake: IV 350 100 cefTRIAXone 2 gm In 50 Sodium Chloride 0.9% 50 ml @ 100 mls/hr IVPB Q24HR [facility] Rx#:[id number] metroNIDAZOLE-NS PMX 500 300 100 mg In Saline 1 100ml.bag @ 100 mls/hr IVPB Q8HR [facility] Rx#:[id number] Intake, IV Titration 815.421 803.110 346.356 Amount Norepinephrine 4 mg In 569.469 611.254 185.076 Sodium Chloride 0.9% 250 ml @ 0.03 MCG/KG/MIN 16. 459 mls/hr IV .[id number] [facility] Rx#:[id number] propofoL 1,000 mg In 245.952 191.856 161.28 Empty Bag 1 bag @ 15 MCG/ KG/MIN 8.64 mls/hr IV . [id number] [facility] Rx#:[id number] Tube Feeding 30 Other 30 Output: Gastric Drainage 10 Urine 0 0 0 Other: # Bowel Movements 0 ABP, PAP, CO, CI - Last Documented Arterial Blood Pressure 145/45 - Exam General Appearance: Reveals 68-year-old female intubated mechanically ventilated sedated follows simple instructions like wiggling toes when asked to do so. Neck HEENT: Supple, no lymphadenopathy, no thyroid enlargement, no carotid bruits. Endotracheal tube and orogastric tube are intact. Lungs: Symmetrical chest expansion, rhonchi bilaterally. Chest Wall: No chest wall deformity, no tenderness. Heart: S1-S2, no S3 gallop. Murmur. Abdomen: Soft nontender no megaly no rebound, suspect small ascites. Extremities: 1+ bipedal edema. Pulses: Distal pulses bilaterally slightly diminished. Skin: Skin color, texture, tugor normal, no rashes or lesions. Neurologic: Not fully assessed, patient is sedated, intubated mechanically ventilated on propofol. She seems to follow simple instructions like wiggling toes - Labs CBC & Chem 7: 06/10/23 04:30 06/10/23 04:30 Labs: Abnormal Lab Results - Last 24 Hours (Table) 06/09/23 06/09/23 06/09/23 Range/Units 18:16 21:23 23:46 RBC (3.80-5.40) m/uL Hgb (11.4-16.0) gm/dL Hct (34.0-46.0) % MCV (80.0-100.0) fL RDW (11.5-15.5) % Plt Count (150-450) k/uL Macrocytosis ABG pO2 (83-108) mmHg ABG Total CO2 (19-24) mmol/L ABG O2 Saturation (94-97) % Sodium (137-145) mmol/L Carbon Dioxide (22-30) mmol/L BUN (7-17) mg/dL Creatinine (0.52-1.04) mg/dL Glucose (74-99) mg/dL POC Glucose (mg/dL) 115 H 128 H 135 H (70-110) mg/dL Calcium (8.4-10.2) mg/dL 06/10/23 06/10/23 06/10/23 Range/Units 04:30 04:30 04:31 RBC 2.40 L (3.80-5.40) m/uL Hgb 8.4 L (11.4-16.0) gm/dL Hct 25.7 L (34.0-46.0) % MCV 107.1 H (80.0-100.0) fL RDW 17.9 H (11.5-15.5) % Plt Count 129 L (150-450) k/uL Macrocytosis Marked A ABG pO2 (83-108) mmHg ABG Total CO2 (19-24) mmol/L ABG O2 Saturation (94-97) % Sodium 130 L (137-145) mmol/L Carbon Dioxide 18 L (22-30) mmol/L BUN 30 H (7-17) mg/dL Creatinine 6.49 H (0.52-1.04) mg/dL Glucose 139 H (74-99) mg/dL POC Glucose (mg/dL) 151 H (70-110) mg/dL Calcium 7.8 L (8.4-10.2) mg/dL 06/10/23 06/10/23 Range/Units 06:00 11:45 RBC (3.80-5.40) m/uL Hgb (11.4-16.0) gm/dL Hct (34.0-46.0) % MCV (80.0-100.0) fL RDW (11.5-15.5) % Plt Count (150-450) k/uL Macrocytosis ABG pO2 117 H (83-108) mmHg ABG Total CO2 25 H (19-24) mmol/L ABG O2 Saturation 98.0 H (94-97) % Sodium (137-145) mmol/L Carbon Dioxide (22-30) mmol/L BUN (7-17) mg/dL Creatinine (0.52-1.04) mg/dL Glucose (74-99) mg/dL POC Glucose (mg/dL) 128 H (70-110) mg/dL Calcium (8.4-10.2) mg/dL Microbiology - Last 24 Hours (Table) 06/07/23 14:20 Gram Stain - Final Sputum Sputum Culture - Final Marla sp,not albicans/galbr Assessment and Plan Assessment: Impression: Cardiac arrest/PEA status post 1 round of CPR for a total of 2 to 3 minutes Acute hypoxic respiratory failure secondary to above Fluid overload requiring hemodialysis with pulmonary edema and bilateral pleural effusions Possible aspiration pneumonia Acute cholecystitis status postcholecystectomy done on 06/03/2023 Choledocholithiasis requiring ERCP done on 06/07/2023 with sphincterectomy and extraction of 3 small stone Morbid obesity Benign essential hypertension Type 2 diabetes, on Levemir and insulin and sliding scale History of hypothyroidism Abnormal liver enzymes secondary to choledocholithiasis possible cholangitis. End-stage renal disease on hemodialysis Anemia of chronic disease Recommendation: Continue ventilatory support Continue large-volume ultrafiltration/dialysis it is hard to tell from the chest x-ray whether the findings are findings of fluid overload or underlying pneumonia I favor fluid overload Continue antibiotics patient is presently on Rocephin and Flagyl Continue hemodynamic support/pressors Continue to monitor liver profile and renal profile Continue enteral feeding and advance as tolerated Consider sedation holiday sometime later today and address mental status Continue DuoNeb updrafts Continue GI and DVT prophylaxis/Lovenox and Protonix Continue Synthroid Patient is critically ill, not ready for any weaning at this point, Will continue to follow. Critical care time is over 30 minutes Time with Patient: Greater than 30
--- NOTE | 2023-06-10 14:55 | P.PN ---
Subjective Progress Note Date: 06/10/23 CHIEF COMPLAINT: Cholecystitis HISTORY OF PRESENT ILLNESS: Patient postop day #8 status post laparoscopic cholecystectomy. Patient status post ERCP with stone extraction. Patient had cardiac arrest after ERCP currently is in the ICU and remains intubated on mechanical ventilation. There weaning sedation today. She remains on Levophed. She is receiving hemodialysis this morning. Afebrile. WBC 9.3 Hgb 8.4 platelets 129 PHYSICAL EXAM: VITAL SIGNS: Reviewed. GENERAL: no acute distress. ABDOMEN: Soft. Nondistended. Incision sites clean dry and intact ASSESSMENT: 1. Cholecystitis status post laparoscopic cholecystectomy 2. Choledocholithiasis status post ERCP with stone extraction 3. Cardiac arrest PLAN: -Continue medical management -Okay to start tube feeds via NG tube for nutrition support Physician Overseamer note has been reviewed by physician. Signing provider agrees with the documented findings, assessment, and plan of care. Objective - Vital Signs Vital signs: Vital Signs Temp 96.4 F L 06/10/23 13:30 Pulse 55 L 06/10/23 13:30 Resp 19 06/10/23 13:30 BP 137/44 06/10/23 13:30 Pulse Ox 97 06/10/23 13:30 FiO2 35 06/10/23 14:49 Intake & Output 06/09/23 06/10/23 06/10/23 18:59 06:59 18:59 Intake Total 1165.421 392.571 2581.356 Output Total 10 0 3400 Balance 1155.421 903.110 -2393.644 Weight 148.6 kg 148.6 kg Intake: IV 350 100 200 cefTRIAXone 2 gm In 50 100 Sodium Chloride 0.9% 50 ml @ 100 mls/hr IVPB Q24HR [facility] Rx#:[id number] metroNIDAZOLE-NS PMX 500 300 100 100 mg In Saline 1 100ml.bag @ 100 mls/hr IVPB Q8HR [facility] Rx#:[id number] Intake, IV Titration 815.421 803.110 346.356 Amount Norepinephrine 4 mg In 569.469 611.254 185.076 Sodium Chloride 0.9% 250 ml @ 0.03 MCG/KG/MIN 16. 459 mls/hr IV .[id number] [facility] Rx#:[id number] propofoL 1,000 mg In 245.952 191.856 161.28 Empty Bag 1 bag @ 15 MCG/ KG/MIN 8.64 mls/hr IV . [id number] [facility] Rx#:[id number] Tube Feeding 30 Hemodialysis 400 Other 30 Output: Gastric Drainage 10 Urine 0 0 0 Hemodialysis 3400 Other: # Bowel Movements 0 ABP, PAP, CO, CI - Last Documented Arterial Blood Pressure 135/46 - Labs CBC & Chem 7: 06/10/23 04:30 06/10/23 04:30 Labs: Abnormal Lab Results - Last 24 Hours (Table) 06/09/23 06/09/23 06/09/23 Range/Units 18:16 21:23 23:46 RBC (3.80-5.40) m/uL Hgb (11.4-16.0) gm/dL Hct (34.0-46.0) % MCV (80.0-100.0) fL RDW (11.5-15.5) % Plt Count (150-450) k/uL Macrocytosis ABG pO2 (83-108) mmHg ABG Total CO2 (19-24) mmol/L ABG O2 Saturation (94-97) % Sodium (137-145) mmol/L Carbon Dioxide (22-30) mmol/L BUN (7-17) mg/dL Creatinine (0.52-1.04) mg/dL Glucose (74-99) mg/dL POC Glucose (mg/dL) 115 H 128 H 135 H (70-110) mg/dL Calcium (8.4-10.2) mg/dL 06/10/23 06/10/23 06/10/23 Range/Units 04:30 04:30 04:31 RBC 2.40 L (3.80-5.40) m/uL Hgb 8.4 L (11.4-16.0) gm/dL Hct 25.7 L (34.0-46.0) % MCV 107.1 H (80.0-100.0) fL RDW 17.9 H (11.5-15.5) % Plt Count 129 L (150-450) k/uL Macrocytosis Marked A ABG pO2 (83-108) mmHg ABG Total CO2 (19-24) mmol/L ABG O2 Saturation (94-97) % Sodium 130 L (137-145) mmol/L Carbon Dioxide 18 L (22-30) mmol/L BUN 30 H (7-17) mg/dL Creatinine 6.49 H (0.52-1.04) mg/dL Glucose 139 H (74-99) mg/dL POC Glucose (mg/dL) 151 H (70-110) mg/dL Calcium 7.8 L (8.4-10.2) mg/dL 06/10/23 06/10/23 Range/Units 06:00 11:45 RBC (3.80-5.40) m/uL Hgb (11.4-16.0) gm/dL Hct (34.0-46.0) % MCV (80.0-100.0) fL RDW (11.5-15.5) % Plt Count (150-450) k/uL Macrocytosis ABG pO2 117 H (83-108) mmHg ABG Total CO2 25 H (19-24) mmol/L ABG O2 Saturation 98.0 H (94-97) % Sodium (137-145) mmol/L Carbon Dioxide (22-30) mmol/L BUN (7-17) mg/dL Creatinine (0.52-1.04) mg/dL Glucose (74-99) mg/dL POC Glucose (mg/dL) 128 H (70-110) mg/dL Calcium (8.4-10.2) mg/dL
[2023-06-10] MEDS ORDERED: VANCOMYCIN IV PER PHARMACY 1 EACH MISC MISCELLANE PRN (16:30)
[2023-06-10] MEDS: VANCOMYCIN 2,000 MG in SODIUM CHLORIDE 0.9% 500 ML 500 ML IVPB ONE (17:00)
[2023-06-10 17:52] LABS: Glucose,Whole Blood 162 mg/dL (70-110)
--- NOTE | 2023-06-10 21:10 | P.CONS ---
History of Present Illness - Reason for Consult Consult date: 06/10/23 Drainage from the HD shunt site Requesting physician: Bin Stevens - Chief Complaint Drainage from the right upper arm shunt x few days - History of Present Illness Patient is a 68-year-old female with multiple comorbidities including diabetes mellitus hypertension hyperlipidemia CA CVA TIA end-stage renal disease on dialysis patient has been in the hospital for close to 2 weeks before this initial visit, with initial presentation on 05/30/2023 for evaluation of nausea and vomiting patient has been diagnosed with cholecystitis and the patient status post laparoscopic cholecystectomy completed on 06/03/2023 patient did have a ERCP on 06/07/2023 for status post biliary sphincterotomy and balloon stone extraction patient apparently did have a cardiac arrest and required resuscitation and subsequent admission to the ICU on 06/07/2023, patient did have a right upper extremity AV graft and apparently noticed to have some drainage from that site prompted this consultation, patient has been afebrile throughout her hospital stay except a low-grade fever 100 F on admission patient did have elevated white count 14.9 on 06/01/2023 however the white count is normal now BUN and creatinine has been elevated patient is currently on the vent with an FiO2 of 35% and no significant purulent secretions through the ET reported by the nursing staff patient did respond appropriately to the nursing staff when sedation was cut back currently requiring low-dose pressor support no vomiting or diarrhea has been reported, the drainage has been reported to be mild on the dressing with some swelling but no significant redness and no foul-smelling drainage reported currently on Rocephin and Flagyl for her cholecystitis/possible choledocholithiasis no blood culture during this admission sputum has been continued Review of Systems Positive points has been mentioned in HPI complete review could not be obtained because patient intubated on the vent Past Medical History Past Medical History: CVA/TIA, Diabetes Mellitus, Dialysis, Eye Disorder, GERD/Reflux, Hyperlipidemia, Hypertension, Myocardial Infarction (CA), Osteoarthritis (OA), Renal Disease, Sleep Apnea/CPAP/BIPAP, Thyroid Disorder Additional Past Medical History / Comment(s): Legally blind, 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 6 years. Last Myocardial Infarction Date:: Unknown History of Any Multi-Drug Resistant Organisms: None Reported Past Surgical History: Section, Hysterectomy, Orthopedic Surgery Additional Past Surgical History / Comment(s): Had open thrombectomy left axillary graft on 12-21-21,BONE TUMOR REMOVED FROM LT FINGER AND REPLACED WITH BONE FROM ELBOW. DIALYSIS FISTULA rt arm-old, lasik rt eye surgery, right upper ext. left AV graft revision 03-31-20 Past Anesthesia/Blood Transfusion Reactions: Postoperative Nausea & Vomiting (PONV) Past Psychological History: No Psychological Hx Reported Smoking Status: Never smoker Past Alcohol Use History: None Reported Past Drug Use History: None Reported - Past Family History Mother Family Medical History: Cancer Brother(s) Family Medical History: Cancer Medications and Allergies Home Medications Medication Instructions Recorded Confirmed Type Levothyroxine Sodium [Synthroid] 150 mcg PO MOTUWETHFR 03/25/20 05/31/23 History Levothyroxine Sodium [Synthroid] 225 mcg PO SUSA 12/20/21 05/31/23 History Insulin Glargine,Hum.rec.anlog 32 units SQ BID 07/21/22 05/31/23 History [Lantus Solostar Pen] Insulin Lispro [humaLOG Kwikpen] 22 unit SQ TID-W/MEALS 07/21/22 05/31/23 History Sevelamer [Renvela] 1,600 mg PO TID-W/MEALS 10/17/22 05/31/23 History Simvastatin [Zocor] 40 mg PO HS 10/17/22 05/31/23 History Midodrine [ProAmatine] 10 mg PO TID PRN 05/31/23 05/31/23 History Pantoprazole Sodium [Protonix] 20 mg PO DAILY 05/31/23 05/31/23 History traZODone HCL [Desyrel] 100 mg PO HS PRN 05/31/23 05/31/23 History HYDROcodone/APAP 5-325MG [[place] 1 each PO Q4HR PRN #20 tab 06/04/23 Rx 5-325] metroNIDAZOLE [Flagyl] 250 mg PO TID #21 tab 06/04/23 Rx Amoxic-Pot Clav 500-125 mg 1 tab PO Q12HR #14 tab 06/15/23 Rx [Augmentin 500-125 mg] Budesonide [Pulmicort] 0.5 mg INHALATION RT-BID ml 06/15/23 Rx Darbepoetin Duncan [Aranesp] 40 mcg SQ Q7D each 06/15/23 Rx INSULIN ASPART (NovoLOG) [NovoLOG 0 unit SQ Q6HR each 06/15/23 Rx (formulary)] Ipratropium-Albuterol Nebulize 3 ml INHALATION RT-QID each 06/15/23 Rx [Duoneb 0.5 mg-3 mg/3 ml Soln] metroNIDAZOLE [Flagyl] 250 mg PO TID #21 tab 06/15/23 Rx Allergies Allergy/AdvReac Type Severity Reaction Status Date / Time No Known Allergies Allergy Verified 05/31/23 09:34 Physical Exam Vitals: Vital Signs Temp Pulse Resp BP Pulse Ox FiO2 06/10/23 11:21 58 L 06/10/23 11:10 55 L 06/10/23 11:07 35 06/10/23 08:02 66 06/10/23 07:49 65 06/10/23 07:32 35 06/10/23 07:00 65 16 97 06/10/23 06:45 64 16 97 06/10/23 06:30 66 16 97 06/10/23 06:15 63 16 127/53 97 06/10/23 06:00 58 L 16 97 06/10/23 05:45 66 17 96 06/10/23 05:30 65 16 97 06/10/23 05:15 62 16 97 06/10/23 05:00 63 16 97 06/10/23 04:45 56 L 16 98 06/10/23 04:30 57 L 16 98 06/10/23 04:15 56 L 16 98 06/10/23 04:02 56 L 06/10/23 04:00 97.2 F L 55 L 16 97 35 06/10/23 03:50 35 06/10/23 03:49 55 L 06/10/23 03:45 55 L 17 97 06/10/23 03:30 58 L 16 97 06/10/23 03:15 58 L 22 96 06/10/23 03:00 65 18 97 06/10/23 02:45 59 L 19 97 06/10/23 02:30 64 19 97 06/10/23 02:15 64 18 97 06/10/23 02:00 64 19 97 06/10/23 01:45 65 22 97 06/10/23 01:30 67 16 96 06/10/23 01:15 64 20 98 06/10/23 01:00 62 16 97 06/10/23 00:45 56 L 16 97 06/10/23 00:30 55 L 16 97 06/10/23 00:23 56 L 06/10/23 00:15 56 L 16 97 35 06/10/23 00:03 62 06/10/23 00:00 97.0 F L 61 16 97 35 06/09/23 23:45 61 16 97 06/09/23 23:30 62 16 98 06/09/23 23:15 62 16 98 06/09/23 23:00 63 17 98 06/09/23 22:45 63 16 98 06/09/23 22:30 62 15 98 06/09/23 22:15 62 16 98 06/09/23 22:00 63 16 98 06/09/23 21:45 63 19 98 06/09/23 21:30 57 L 18 98 06/09/23 21:15 55 L 16 98 06/09/23 21:00 55 L 18 98 06/09/23 20:45 56 L 16 97 06/09/23 20:30 56 L 17 98 06/09/23 20:16 56 L 06/09/23 20:15 56 L 17 98 06/09/23 20:00 97.0 F L 56 L 18 97 35 06/09/23 19:46 55 L 06/09/23 19:45 54 L 18 98 35 06/09/23 19:30 55 L 16 98 06/09/23 19:15 55 L 16 98 06/09/23 19:01 55 L 16 98 06/09/23 19:00 57 L 15 109/44 98 06/09/23 18:45 57 L 15 106/42 98 06/09/23 18:30 55 L 16 106/42 97 35 06/09/23 18:15 97.5 F L 56 L 16 106/42 97 06/09/23 18:00 56 L 16 97 35 06/09/23 17:45 57 L 16 97 06/09/23 17:30 57 L 16 97 06/09/23 17:15 58 L 16 97 06/09/23 17:00 58 L 16 97 35 06/09/23 16:45 59 L 16 97 06/09/23 16:30 59 L 16 97 06/09/23 16:15 59 L 16 96 06/09/23 16:00 97.7 F 66 16 96 35 06/09/23 15:45 67 16 96 06/09/23 15:44 66 06/09/23 15:42 35 06/09/23 15:30 67 16 96 06/09/23 15:15 67 16 96 06/09/23 15:00 69 16 96 35 06/09/23 14:45 71 16 96 06/09/23 14:30 63 16 97 06/09/23 14:15 63 16 97 06/09/23 14:00 98.8 F 64 16 97 35 06/09/23 13:45 61 24 97 06/09/23 13:30 62 24 96 06/09/23 13:15 64 24 96 06/09/23 13:00 69 25 H 94 L 06/09/23 12:45 69 24 94 L 06/09/23 12:30 67 22 94 L 06/09/23 12:15 67 22 95 06/09/23 12:00 98.1 F 60 17 95 35 06/09/23 11:45 60 25 H 95 Intake and Output 06/09/23 06/10/23 06/10/23 22:59 06:59 14:59 Intake Total 778.431 693.837 94.324 Output Total 10 0 0 Balance 768.431 693.837 94.324 Intake: IV 200 100 metroNIDAZOLE-NS PMX 500 200 100 mg In Saline 1 100ml.bag @ 100 mls/hr IVPB Q8HR [facility] Rx#:[id number] Intake, IV Titration 578.431 593.837 94.324 Amount Norepinephrine 4 mg In 401.695 458.093 28.804 Sodium Chloride 0.9% 250 ml @ 0.03 MCG/KG/MIN 16. 459 mls/hr IV .[id number] [facility] Rx#:[id number] propofoL 1,000 mg In 176.736 135.744 65.52 Empty Bag 1 bag @ 15 MCG/ KG/MIN 8.64 mls/hr IV . [id number] [facility] Rx#:[id number] Output: Gastric Drainage 10 Urine 0 0 0 Other: # Bowel Movements 0 Weight 148.6 kg 148.6 kg ABP, PAP, CO, CI - Last 8 Hours Arterial Blood Pressure 121/37 Arterial Blood Pressure 120/37 Arterial Blood Pressure 122/38 Arterial Blood Pressure 122/38 Arterial Blood Pressure 116/35 Arterial Blood Pressure 74/61 Arterial Blood Pressure 72/68 Arterial Blood Pressure 118/42 Arterial Blood Pressure 123/41 Arterial Blood Pressure 117/38 Arterial Blood Pressure 124/41 Arterial Blood Pressure 120/40 Arterial Blood Pressure 112/39 Arterial Blood Pressure 105/41 GENERAL DESCRIPTION: Elderly female intubated on the vent HEENT: Shows Pallor , no scleral icterus. Oral mucous membrane is dry. NECK: Trachea central, no thyromegaly. LUNGS: Unlabored breathing. Decreased breath sounds at the base HEART: S1, S2, regular rate and rhythm. No loud murmur ABDOMEN: Soft, no tenderness , guarding or rigidity, no organomegaly EXTREMITIES: Right upper arm AV graft site did have a bruising some swelling but no redness minimal drainage on the dressing SKIN: No rash, no masses palpable. NEUROLOGICAL: The patient is sedated on the vent Results CBC & Chem 7: 06/14/23 10:54 06/14/23 10:54 Labs: Abnormal Lab Results - Last 24 Hours (Table) 06/09/23 06/09/23 06/09/23 Range/Units 18:16 21:23 23:46 RBC (3.80-5.40) m/uL Hgb (11.4-16.0) gm/dL Hct (34.0-46.0) % MCV (80.0-100.0) fL RDW (11.5-15.5) % Plt Count (150-450) k/uL Macrocytosis ABG pO2 (83-108) mmHg ABG Total CO2 (19-24) mmol/L ABG O2 Saturation (94-97) % Sodium (137-145) mmol/L Carbon Dioxide (22-30) mmol/L BUN (7-17) mg/dL Creatinine (0.52-1.04) mg/dL Glucose (74-99) mg/dL POC Glucose (mg/dL) 115 H 128 H 135 H (70-110) mg/dL Calcium (8.4-10.2) mg/dL 06/10/23 06/10/23 06/10/23 Range/Units 04:30 04:30 04:31 RBC 2.40 L (3.80-5.40) m/uL Hgb 8.4 L (11.4-16.0) gm/dL Hct 25.7 L (34.0-46.0) % MCV 107.1 H (80.0-100.0) fL RDW 17.9 H (11.5-15.5) % Plt Count 129 L (150-450) k/uL Macrocytosis Marked A ABG pO2 (83-108) mmHg ABG Total CO2 (19-24) mmol/L ABG O2 Saturation (94-97) % Sodium 130 L (137-145) mmol/L Carbon Dioxide 18 L (22-30) mmol/L BUN 30 H (7-17) mg/dL Creatinine 6.49 H (0.52-1.04) mg/dL Glucose 139 H (74-99) mg/dL POC Glucose (mg/dL) 151 H (70-110) mg/dL Calcium 7.8 L (8.4-10.2) mg/dL 06/10/23 Range/Units 06:00 RBC (3.80-5.40) m/uL Hgb (11.4-16.0) gm/dL Hct (34.0-46.0) % MCV (80.0-100.0) fL RDW (11.5-15.5) % Plt Count (150-450) k/uL Macrocytosis ABG pO2 117 H (83-108) mmHg ABG Total CO2 25 H (19-24) mmol/L ABG O2 Saturation 98.0 H (94-97) % Sodium (137-145) mmol/L Carbon Dioxide (22-30) mmol/L BUN (7-17) mg/dL Creatinine (0.52-1.04) mg/dL Glucose (74-99) mg/dL POC Glucose (mg/dL) (70-110) mg/dL Calcium (8.4-10.2) mg/dL Microbiology - Last 24 Hours (Table) 06/07/23 14:20 Gram Stain - Final Sputum Sputum Culture - Final Marla sp,not albicans/galbr Assessment and Plan (1) Infection of AV graft for dialysis Status: Acute Code(s): T82.7XXA - INFECT/INFLM REACT D/T OTH CARDI/VASC DEV/IMPLNT/GRFT, INIT SNOMED Code(s): 288316654 Plan: 1patient with a right upper extremity AV graft in this patient with a history of end-stage renal disease on dialysis admission to hospital abdominal pain status postcholecystectomy followed by ERCP with extraction of stones and did have a cardiac arrest admission to the ICU no concerning for drainage from the AV graft possible infection however the patient not running any fever no sig nificant erythema was noticed and did have a normal white count. 2blood and local cultures obtained obtained and results will be followed 3-we will empirically add vancomycin while waiting for the workup to be completed We will follow on clinical condition and cultures to further adjust medication if needed Thank you for this consultation we will follow the patient along with you Dictation was produced using [employer] dictation software. please excuse any grammatical, word or spelling errors. Time with Patient: Greater than 30
--- NOTE | 2023-06-10 22:54 | P.PN ---
Subjective Progress Note Date: 06/10/23 HISTORY OF PRESENT ILLNESS: 68-year-old female 89 office patient who was hospitalized recently at [facility] for abscess and infected armpit area with slight recurrent abdominal discomfort with gallbladder dyskinesia at the time. Patient has end-stage renal disease on hemodialysis 3 times a week also has known to have type 2 diabetes, obstructive sleep apnea, hypertension, hyperlipidemia, hypothyroidism, she brought to the emergency department because of intractable nausea vomiting and diarrhea could not complete dialysis yesterday with worsening fever and chills with abdominal distention without any significant chest pain no bloody stool. Also had infiltrate her fistula which the reason why here hemodialysis was stopped early. With her current symptoms and the significant abnormal liver function test from her last hospitalization which patient was study in detail and found to have biliary hypokinesia via HIDA scan done last month. Patient liver function test this time came back with total bilirubin of 1.9 with AST of 414 and ALT 154 with alkaline phosphatase 224 also lipase of 315 with amylase of 49 which make the diagnosis of subacute pancreatitis as well. Also she continued to have significant anemia with hemoglobin of 8.1 platelet count 1 65, 000 patient creatinine was 6.5 with BUN of 39. Patient was seen and evaluated at the emergency department with above complaint COVID influenza and RSV were negative, CT of the abdomen and pelvis was performed again this time and showed no bowel obstruction with no acute finding identified to the amount of patient's symptoms of the pancreas visualized to be fine with small but prominent calcification on the gallbladder as a gallstone with no surrounding ill-defined fluid and fat stranding. Gallbladder ultrasound was performed again as well and showed hepatomegaly with heterogeneous hyper echoic appearance of the liver suggestive of diffuse fatty infiltrate with hepatocellular disease with no adjacent ascites, gallstones redemonstrated without ultrasound evidence of acute cholecystitis. Patient was hospitalized and consult at this point gastroenterology for her recurrent symptoms with nausea and vomiting to conclude the possibility of gallbladder and gallstone with abnormal liver function test. And also to help to make decision whether her gallbladder should be removed or not. Cardiology consultation for cardiology clearance which patient has no history of cardiac disease no change on her EKG at this point or any change in cardiac enzymes. Nephrology consultation was requested to continue hemodialysis. Also request consult of vascular for her fistula. 06/03/2023: Patient was evaluated through the weekend by cardiology, general surgery, nephrology. Was continued on hemodialysis, also continue on IV antibiotic with Rocephin and Flagyl due to slight concern of leukocytosis. 3 did not have any increased nausea or vomiting no diarrhea, liver function test still slightly bit elevated. Cardiology evaluated patient ordered an echocardiogram and and furthermore decided to do a nuclear stress test before clearing her for surgery. Nuclear stress test scheduled this morning if patient goes through with no problem she will be going for her cholecystectomy as an extent. 06/04/2023: Laboratory values showed slight increase in alkaline phosphatase along with total bilirubin make the possibility of having obstruction of the common bile with stone or other is much higher. Delay patient discharge at this point and should go for an MRCP initially if there is any finding consistent with stone or blockage of the common duct she might need to go for an ERCP to extract stone and stent the area. Will delay discharge till this is done and cleared in the meanwhile repeat labs again tomorrow. Patient hemodialysis days today which we will continue to do as an inpatient. 06/05/2023: Patient MRCP came back with several area of calcification in the common duct consistent with cholelithiasis. Patient will be seen gastroenterology for ERCP probably to extract the stone and probably do stent in the common duct. 06/06/2023: After finishing the MRCP and finding more calcification and possibly stone across the common duct patient liver enzymes continue to be elevated total bilirubin still at 2.8 right alk phos 541 AST 59 ALT 62, specially with the current findings will require to go for an ERCP and possible required to extract the stone and put a stent in the common duct. Apparently gastroenterology are planning to do this procedure on Saturday. Meanwhile patient is asymptomatic continue clear liquid diet and advance gradually and dialysis will be done today as well. 06/07/2023: Patient ended up going for her ERCP 3 stones were extracted through the procedure but shortly after procedure she coded and required resuscitation lasted for over a few minutes after giving her atropine patient pulse rate returned but she was intubated and transferred to the ICU at this point. Patient has been resting in the ICU after the current complication, family apparently were updated by gastroenterology along with change person. Continue to do the complication currently patient is not conscious but resting comfortably i n the ICU. 06/08/2023: Patient remain in the ICU on mechanical ventilation, still on vasopressor, she will be going for dialysis today. Her level of responsiveness still limited. Labs today with hemoglobin is 8.3 liver function test were not done will add it to the lab done today. She is still seen pulmonary and cardiology she is still quite hypotensive with pulse rate is down remain on Levophed at this point try to keep her blood pressure systolic above 100. 06/09/2023: She is still intubated on mechanical ventilation she is fluid overload still on vasopressor that she is awake alert will be hopefully extubated tomorrow with her fluid overload will be on hemodialysis today which will help some. Her laboratory value with hemoglobin is 8.4 white blood cell 9.0 ABG still showing blood patient had quite with respiratory alkalosis. Also still required a smaller dose of vasopressor. Will initiate feeding via NG tube today. 06/10/2023: Patient remain in the ICU on mechanical ventilation and still on mild sedation on vasopressor with Levophed, she will be going on ultrafiltration on d ialysis today repeat another 1 tomorrow on backing off on sedation she is responding sound but she still require sedation at this point and she is not ready to be extubated yet. Pulmonary Dr. Anguiano keeping her on assist control rate of 16 with volume of 400 FiO2 of 35 percentile with PEEP of 5 still on propofol at 35 mcg/min still receiving tube feeding at testing today with hemoglobin 8.4 creatinine 6.49 chest x-ray showed worsening infiltrate/pneumonia bilateral space disease. Will continue antibiotics with Rocephin and Flagyl continue enteral feeding prior to advance it continue sedation at this point she is not ready to be extubated today. REVIEW OF SYSTEMS: CONSTITUTIONAL: Sedated on mechanical ventilation.. EYES: No icterus sclerae, no conjunctivitis. EARS, NOSE, MOUTH, THROAT, and FACE: No sore throat, lymphadenopathy, carotid bruits or deformity. RESPIRATORY: Slight shortness of breath no cough or wheezes.. CARDIOVASCULAR: Positive PND orthopnea palpitation no angina.. GASTROINTESTINAL: Positive abdominal pain with nausea vomiting diarrhea no constipation no acute gastrointestinal bleed no distention or masses.. GENITOURINARY: Decreased urine output she is on hemodialysis.. INTEGUMENT/BREAST: Negative for any muscular injury with mild osteoarthritis.. HEMATOLOGIC/LYMPHATIC: Chronic anemia and hematoma around the fistula graft.. MUSCULOSKELTAL: Negative for Myalgia or arthralgia. NEURLOGICAL: No LOC, Sz or syncope, blurred vision dizziness or abnormality.. BEHAVIORAL/PSYCH: Negative. ENDOCRINE: Negative. PHYSICAL EXAMINATION: General Appearance: Sedated on mechanical ventilation with the ET tube and NG tube are in.. Neck HEENT: Supple, no lymphadenopathy, no thyroid enlargement, no carotid brui ts. Lungs: Positive fine rhonchi in the bases with crackles mostly limited area on the right side no wheezes. Chest Wall: Decreased expansion with deep inspiration no tenderness and no deformity was found on exam, no costochondral pain or discomfort. Heart: Regular rate and rhythm, S1, S2 normal, no murmur, rub or gallop. Back: Symmetric, no curvature, ROM normal, no CVA tenderness. Abdomen: Soft with slight tenderness in the mid epigastric and right upper quadrant area no rebound or rigidity slight hepatomegaly not able to feel any splenomegaly at this point and very limited amount of ascites. Extremities: Trace edema, her fistula graft in the left side has slight hematoma on the side. Pulses: 2+ and symmetric. Skin: Skin color, texture, tugor normal, no rashes or lesions. Neurologic: Alert oriented x3 cranial nerves II through XII intact, no motor deficit, no abnormal balance or gait. ASSESSMENT AND PLAN: _Postcardiac arrest not a clear etiology could be PEA or arrhythmia or could be aggravation from the ERCP specially with ascending cholangitis but still on Rocephin and Flagyl for. Patient still covered currently continue vent management continue to watch for any arrhythmia. Still bradycardic. _Acute hypoxic respiratory failure: Remain on mechanical ventilation currently. Still on mechanical ventilation oxygenation is well good. _Ascending cholangitis: Still been treated with IV antibiotic with Rocephin and Flagyl at this point doing well no positive culture white blood cell is better. _Obstructive common duct with gallstone post 3 stone extracted via ERCP along with sphincterectomy. _Acute on subacute pancreatitis now retrospectively This is a result of gallstone passed into the common duct and blocked the pancreatic duct causing pancreatitis. Fortunately pancreatitis is resolved at this point but continue to see more evidence of common duct stone. _Gallstone without any acute cholecystitis: With the possibility of possible common duct stone passing black the pancreatic duct causing subacute pancre atitis patient will remain on antibiotic for treating this? Of ascending cholangitis till infection is clear out till the gallbladder is out. Again after taking her gallbladder out doing an MRCP is showing some common duct stone. ERCP will be needed to extract the stone. _gallbladder dyskinesia with recurrent symptoms of gallstone: Post laparoscopic cholecystectomy successful except still have some stone in the common duct. _Elevated liver function test again following surgery: Post 3 stent removed with ERCP we will repeat liver function test again. _ Common duct stone: Just had 3 stone removed of the common duct via ERCP. _End-stage renal disease: Will require hemodialysis today. _Hypertension: For patient to be maintained on medication was doing midodrine before now the blood pressure being low still on vasopressor with Levophed. _Hypothyroidism: Continue levothyroxine 225 mcg daily on Saturday the rest of the week is on 50 mcg. _Type 2 diabetes: Blood sugar has been low will hold off on long-acting insulin keep patient on Accu-Chek with sliding scale coverage only for the next 24 hours. _Chronic anemia: Iron deficiency from end-stage renal disease continue to watch hemoglobin and iron level continue Procrit. Complication: She is still on mechanical ventilation, still on sedation, still on vasopressor and still on IV antibiotics. Continue supportive care patient is not going to be extubated today. Objective - Vital Signs Vital signs: Vital Signs Temp 97.2 F L 06/10/23 04:00 Pulse 63 06/10/23 05:00 Resp 16 06/10/23 05:00 BP 109/44 06/09/23 19:00 Pulse Ox 97 06/10/23 05:00 FiO2 35 06/10/23 04:00 Intake & Output 06/09/23 06/09/23 06/10/23 06:59 18:59 06:59 Intake Total 201.235 2313.421 709.003 Output Total 0 10 0 Balance 902.681 2691.421 709.003 Weight 143.3 kg 148.6 kg Intake: IV 100 350 100 cefTRIAXone 2 gm In 50 Sodium Chloride 0.9% 50 ml @ 100 mls/hr IVPB Q24HR [facility] Rx#:[id number] metroNIDAZOLE-NS PMX 500 100 300 100 mg In Saline 1 100ml.bag @ 100 mls/hr IVPB Q8HR [facility] Rx#:[id number] Intake, IV Titration 521.057 815.421 609.003 Amount Norepinephrine 4 mg In 299.009 569.469 417.147 Sodium Chloride 0.9% 250 ml @ 0.03 MCG/KG/MIN 16. 459 mls/hr IV .[id number] [facility] Rx#:[id number] propofoL 1,000 mg In 222.048 245.952 191.856 Empty Bag 1 bag @ 15 MCG/ KG/MIN 8.64 mls/hr IV . [id number] [facility] Rx#:[id number] Output: Gastric Drainage 10 Urine 0 0 0 Other: # Bowel Movements 0 0 ABP, PAP, CO, CI - Last Documented Arterial Blood Pressure 123/41 - Labs CBC & Chem 7: 06/10/23 04:30 06/10/23 04:30 Labs: Abnormal Lab Results - Last 24 Hours (Table) 06/09/23 06/09/23 06/09/23 Range/Units 18:16 21:23 23:46 RBC (3.80-5.40) m/uL Hgb (11.4-16.0) gm/dL Hct (34.0-46.0) % MCV (80.0-100.0) fL RDW (11.5-15.5) % Plt Count (150-450) k/uL Macrocytosis ABG pO2 (83-108) mmHg ABG Total CO2 (19-24) mmol/L ABG O2 Saturation (94-97) % Sodium (137-145) mmol/L Carbon Dioxide (22-30) mmol/L BUN (7-17) mg/dL Creatinine (0.52-1.04) mg/dL Glucose (74-99) mg/dL POC Glucose (mg/dL) 115 H 128 H 135 H (70-110) mg/dL Calcium (8.4-10.2) mg/dL 06/10/23 06/10/23 06/10/23 Range/Units 04:30 04:30 04:31 RBC 2.40 L (3.80-5.40) m/uL Hgb 8.4 L (11.4-16.0) gm/dL Hct 25.7 L (34.0-46.0) % MCV 107.1 H (80.0-100.0) fL RDW 17.9 H (11.5-15.5) % Plt Count 129 L (150-450) k/uL Macrocytosis Marked A ABG pO2 (83-108) mmHg ABG Total CO2 (19-24) mmol/L ABG O2 Saturation (94-97) % Sodium 130 L (137-145) mmol/L Carbon Dioxide 18 L (22-30) mmol/L BUN 30 H (7-17) mg/dL Creatinine 6.49 H (0.52-1.04) mg/dL Glucose 139 H (74-99) mg/dL POC Glucose (mg/dL) 151 H (70-110) mg/dL Calcium 7.8 L (8.4-10.2) mg/dL 06/10/23 Range/Units 06:00 RBC (3.80-5.40) m/uL Hgb (11.4-16.0) gm/dL Hct (34.0-46.0) % MCV (80.0-100.0) fL RDW (11.5-15.5) % Plt Count (150-450) k/uL Macrocytosis ABG pO2 117 H (83-108) mmHg ABG Total CO2 25 H (19-24) mmol/L ABG O2 Saturation 98.0 H (94-97) % Sodium (137-145) mmol/L Carbon Dioxide (22-30) mmol/L BUN (7-17) mg/dL Creatinine (0.52-1.04) mg/dL Glucose (74-99) mg/dL POC Glucose (mg/dL) (70-110) mg/dL Calcium (8.4-10.2) mg/dL Microbiology - Last 24 Hours (Table) 06/07/23 14:20 Gram Stain - Final Sputum Sputum Culture - Final Marla sp,not albicans/galbr
[2023-06-10 23:40] LABS: Glucose,Whole Blood 137 mg/dL (70-110)
[2023-06-11 04:46] LABS: Anisocytosis Slight; Basophils # (A) 0.1 k/uL (0-0.2); Basophils % (A) 1 %; Eosinophils # (A) 0.2 k/uL (0-0.7); Eosinophils % (A) 2 %; HCT 23.7 % (34.0-46.0); HGB 8.2 gm/dL (11.4-16.0); Lymphocytes # (A) 1.2 k/uL (1.0-4.8); Lymphocytes % (A) 13 %; MCH 36.1 pg (25.0-35.0); MCHC 34.6 g/dL (31.0-37.0); MCV 104.5 fL (80.0-100.0); Macrocytosis Moderate; Mean Platelet Volume 10.6; Monocytes # (A) 0.3 k/uL (0-1.0); Monocytes % (A) 3 %; Neutrophils # (A) 7.6 k/uL (1.3-7.7); Neutrophils % (A) 79 %; Platelet Count 115 k/uL (150-450); RBC 2.27 m/uL (3.80-5.40); WBC 9.6 k/uL (3.8-10.6)
[2023-06-11 05:04] LABS: ALT 32 U/L (4-34); AST 64 U/L (14-36); African American GFR (CKD) 9 (>60 ml/min/1.73 sqM); Albumin 2.2 g/dL (3.5-5.0); Alkaline Phosphatase 575 U/L (38-126); Anion Gap 11 mmol/L; Blood Urea Nitrogen 22 mg/dL (7-17); Calcium 7.5 mg/dL (8.4-10.2); Carbon Dioxide 19 mmol/L (22-30); Chloride 98 mmol/L (98-107); Glucose 147 mg/dL (74-99); Non-African American GFR(CKD) 8 (>60 ml/min/1.73 sqM); Potassium 4.2 mmol/L (3.5-5.1); Sodium 128 mmol/L (137-145); Total Bilirubin 2.4 mg/dL (0.2-1.3); Total Protein 5.5 g/dL (6.3-8.2)
[2023-06-11 05:43] LABS: ABG Base Excess -0.4 mmol/L; ABG HCO3 24 mmol/L (21-25); ABG Oxygen Saturation 98.7 % (94-97); ABG PCO2 38 mmHg (35-45); ABG PH 7.41 (7.35-7.45); ABG PO2 109 mmHg (83-108); ABG TCO2 25 mmol/L (19-24); Allen Test Performed? Yes
[2023-06-11 06:47] LABS: Glucose,Whole Blood 160 mg/dL (70-110)
--- NOTE | 2023-06-11 06:54 | XR ---
EXAMINATION TYPE: XR chest 1V portable DATE OF EXAM: 06/11/2023 COMPARISON: 06/10/2023 INDICATION: Mechanical ventilation difficulty breathing TECHNIQUE: Single frontal view of the chest is obtained. FINDINGS: The heart size is enlarged, stable from comparison. The pulmonary vasculature is normal. Moderate left and mild right basilar infiltrates are present. Endotracheal tube tip located 4.8 cm above the antwon. Nasogastric tube transverses the thorax with t ip in the proximal left upper quadrant of the abdomen. This may have pulled back somewhat from compar lolly. IMPRESSION: 1. Cardiomegaly. 2. Moderate left and mild right basilar infiltrates. This is worsening on the left. 3. Lines and catheters discussed above
[2023-06-11] MEDS: VANCOMYCIN 2,000 MG in SODIUM CHLORIDE 0.9% 500 ML 500 ML IVPB ONE (06:55)
--- NOTE | 2023-06-11 08:39 | CDI ---
Documentation Clarification Form Date: 06/11/2023 08:01:23 AM From: Ebony Fajardo RN CCDS Phone: [phone] Admit Date: 05/30/2023 11:45:00 PM Patient Name: Adalgisa Gonzalez Visit Number: [id number] Discharge Date: ATTENTION: The Clinical Documentation Specialists (CDI) and [facility] Coding Staff appreciate your assistance in clarifying documentation. Please respond to the clarification below the line at the bottom and electronically sign. The CDI & [facility] Coding staff will review the response and follow-up if needed. Please note: Queries are made part of the Legal Health Record. If you have any questions, please contact the author of this message via ITS. Dr. Jovan Clayton Your patient has the documented diagnosis of unspecified Heart failure 06/08, Cardiology note. Additional information regarding the type, acuity of Heart failure is requested. History/Risk Factors: 68-year-old female presents to the ED with abdominal pain and distention On 06/06 the patient had an ERCP with multiple stone removal, the patient went into cardiac arrest CPR initiated. Medical History: ESRD on hemodialysis , HTN, HLD, Hypothyroidism and SHARON on CPAP. 06/07 Cardiology note. Clinical Indicators: VS/Pulse OX, 06/07 08:00: B/P 122/38; HR 53; RR 28; SpO2 95% Mechanical Ventilator FiO2 35% BNP: 05/29: 3270, 06/06: 4810 Echocardiogram Results 06/06: LVEF 50-55% Normal wall thickness, No obvious regional wall motion abnormality. Moderate RV dilation. Chest X Ray, 06/07: There is a small right pleural effusion which has increased in the interval. There is persistent mildly worsened left retrocradiac opacity obscuring the left hemidiaphragm consistent with effusion and possibly infiltrate or atelectasis as well. Cardiology note, 06/07: We have been asked to evaluate patient for CHF Patient not able to tolerate any heart failure regimen with her blood pressure low. Hemodialysis Notes in [facility]: 06/05: 1.5L fluid removed 06/06: 1L fluid removed 06/07: 2L fluid removed 06/08: 3L fluid removed with assistance of Levo for BP support. Treatment: 05/30 06/07 Coreg 25mg po BID; Hemodialysis 06/06, 06/07, 06/08, 06/09 In your professional opinion, can you please clarify the acuity and type of Heart Failure if known? [ ] Acute Diastolic Heart [ ] Acute on Chronic Diastolic Heart Failure (preserved EF) [ X ] Other, please specify__Acute on chronic systolic heart failure EF 35- 40% [ ] Unable to determine (Template Last Revised: April 2020) MTDD
--- NOTE | 2023-06-11 10:11 | P.PN ---
Subjective Patient is seen in follow-up for end-stage renal disease. She is maintained on hemodialysis on Saturday schedule. Tolerating dialysis well. Receiving tube feeds. Currently intubated. On Levophed. Vital signs are stable. On Levophed. General: Resting in bed. HEENT: Intubated. LUNGS: Scattered rhonchi. HEART: Rate and Rhythm are regular. ABDOMEN: Obese, no distention. EXTREMITITES: Trace edema. Objective - Vital Signs Vital signs: Vital Signs Temp 96.1 F L 06/11/23 04:00 Pulse 68 06/11/23 08:55 Resp 17 06/11/23 07:30 BP 120/49 06/11/23 00:45 Pulse Ox 96 06/11/23 07:30 FiO2 35 06/11/23 07:51 Intake & Output 06/10/23 06/11/23 06/11/23 18:59 06:59 18:59 Intake Total 1682.551 975.791 540 Output Total 3400 0 0 Balance -1717.449 975.791 540 Weight 148.6 kg 143.9 kg Intake: IV 200 110 510 NS 0.9% KVO 110 10 Vancomycin 2,000 mg In 500 Sodium Chloride 0.9% 500 ml 500 ml @ 167 mls/hr IVPB ONCE ONE Rx#: [id number] cefTRIAXone 2 gm In 100 Sodium Chloride 0.9% 50 ml @ 100 mls/hr IVPB Q24HR [facility] Rx#:[id number] metroNIDAZOLE-NS PMX 500 100 mg In Saline 1 100ml.bag @ 100 mls/hr IVPB Q8HR [facility] Rx#:[id number] Intake, IV Titration 912.551 445.791 Amount Norepinephrine 4 mg In 372.071 298.623 Sodium Chloride 0.9% 250 ml @ 0.03 MCG/KG/MIN 16. 459 mls/hr IV .[id number] [facility] Rx#:[id number] Vancomycin 2,000 mg In 300 Sodium Chloride 0.9% 500 ml 500 ml @ 167 mls/hr IVPB ONCE ONE Rx#: [id number] propofoL 1,000 mg In 240.48 147.168 Empty Bag 1 bag @ 15 MCG/ KG/MIN 8.64 mls/hr IV . [id number] [facility] Rx#:[id number] Tube Feeding 80 300 30 Hemodialysis 400 Other 90 120 Output: Urine 0 0 0 Hemodialysis 3400 ABP, PAP, CO, CI - Last Documented Arterial Blood Pressure 109/35 - Labs CBC & Chem 7: 06/11/23 04:23 06/11/23 04:23 Labs: Abnormal Lab Results - Last 24 Hours (Table) 06/10/23 06/10/23 06/10/23 Range/Units 11:45 17:50 23:39 RBC (3.80-5.40) m/uL Hgb (11.4-16.0) gm/dL Hct (34.0-46.0) % MCV (80.0-100.0) fL MCH (25.0-35.0) pg RDW (11.5-15.5) % Plt Count (150-450) k/uL ABG pO2 (83-108) mmHg ABG Total CO2 (19-24) mmol/L ABG O2 Saturation (94-97) % Sodium (137-145) mmol/L Carbon Dioxide (22-30) mmol/L BUN (7-17) mg/dL Creatinine (0.52-1.04) mg/dL Glucose (74-99) mg/dL POC Glucose (mg/dL) 128 H 162 H 137 H (70-110) mg/dL Calcium (8.4-10.2) mg/dL Total Bilirubin (0.2-1.3) mg/dL AST (14-36) U/L Alkaline Phosphatase (38-126) U/L Total Protein (6.3-8.2) g/dL Albumin (3.5-5.0) g/dL 06/11/23 06/11/23 06/11/23 Range/Units 04:23 04:23 05:40 RBC 2.27 L (3.80-5.40) m/uL Hgb 8.2 L (11.4-16.0) gm/dL Hct 23.7 L (34.0-46.0) % MCV 104.5 H (80.0-100.0) fL MCH 36.1 H (25.0-35.0) pg RDW 18.0 H (11.5-15.5) % Plt Count 115 L (150-450) k/uL ABG pO2 109 H (83-108) mmHg ABG Total CO2 25 H (19-24) mmol/L ABG O2 Saturation 98.7 H (94-97) % Sodium 128 L (137-145) mmol/L Carbon Dioxide 19 L (22-30) mmol/L BUN 22 H (7-17) mg/dL Creatinine 5.16 H (0.52-1.04) mg/dL Glucose 147 H (74-99) mg/dL POC Glucose (mg/dL) (70-110) mg/dL Calcium 7.5 L (8.4-10.2) mg/dL Total Bilirubin 2.4 H (0.2-1.3) mg/dL AST 64 H (14-36) U/L Alkaline Phosphatase 575 H (38-126) U/L Total Protein 5.5 L (6.3-8.2) g/dL Albumin 2.2 L (3.5-5.0) g/dL 06/11/23 Range/Units 06:46 RBC (3.80-5.40) m/uL Hgb (11.4-16.0) gm/dL Hct (34.0-46.0) % MCV (80.0-100.0) fL MCH (25.0-35.0) pg RDW (11.5-15.5) % Plt Count (150-450) k/uL ABG pO2 (83-108) mmHg ABG Total CO2 (19-24) mmol/L ABG O2 Saturation (94-97) % Sodium (137-145) mmol/L Carbon Dioxide (22-30) mmol/L BUN (7-17) mg/dL Creatinine (0.52-1.04) mg/dL Glucose (74-99) mg/dL POC Glucose (mg/dL) 160 H (70-110) mg/dL Calcium (8.4-10.2) mg/dL Total Bilirubin (0.2-1.3) mg/dL AST (14-36) U/L Alkaline Phosphatase (38-126) U/L Total Protein (6.3-8.2) g/dL Albumin (3.5-5.0) g/dL Microbiology - Last 24 Hours (Table) 06/10/23 12:01 Gram Stain - Preliminary Arm - Right Assessment and Plan Plan: Assessment: 1. End-stage renal disease maintained on hemodialysis on Saturday schedule via AV graft. 2. Infiltrated AV graft. Seen by vascular surgery. Now being used. 3. Nausea and vomiting. CT showed no acute process. Status post laparoscopic cholecystectomy this admission. Also underwent ERCP with 3 small stones extracted. 4. Volume overload. Improving with ultrafiltration. 5. Hypotension maintained on midodrine. Also on Levophed. 6. Diabetes mellitus. 7. Chronic kidney disease mineral bone disease maintained on Renvela. 8. Anemia of chronic kidney disease. On Aranesp. 9. Status postcardiac arrest. 10. Hypokalemia from poor intake. Replaced. Better. 11. Metabolic acidosis secondary to chronic kidney disease. Expect improvement postdialysis. 12. Hyponatremia secondary to chronic kidney disease. Hypervolemic. Plan: Currently seen while undergoing hemodialysis. Maintain midodrine. Hold for systolic blood pressure greater than 110. Wean Levophed. Wean FiO2. Check phosphorus level.
--- NOTE | 2023-06-11 12:23 | P.PN ---
Subjective Progress Note Date: 06/11/23 Principal diagnosis: Cardiac arrest This is a 68-year-old female patient was seen in the endoscopy room as the patient was undergoing an ERCP for choledocholithiasis patient also underwent biliary sphincterectomy and balloon extraction of a total of 3 small stones. Noted the patient presented to the hospital approximately a week ago for epigastric pain along with nausea and vomiting and subsequently patient was found to have elevated and in the bilirubin and transaminitis. CAT scan of the abdomen pelvis showed gallstones and the patient underwent a cholecystectomy approximately 2 days ago. The patient continues to have issues with pain and elevation in LFTs. Based on that, the patient underwent an ERCP today. Note that following the procedure, the patient was being flipped around and end-tidal CO2 was found to be extremely low and subsequently the patient was found to be unresponsive. At that time the patient was still intubated. She was blue. She was pulseless. The rhythm could not be established as the patient did not have the leads on her chest. Immediately, CPR was initiated and the patient was given 1 round of epinephrine and subsequently a dose of epinephrine for bradycardia. She received CPR for total of 2 to 3 minutes and subsequently ther e was return of spontaneous circulation and a blood pressure. The patient was kept intubated and patient got transferred to the intensive care unit. She is a morbidly obese female patient who weighs 100 on 144 kg and she has a body mass index of 56.2. I saw the patient in the endoscopy room and I also examined the patient in the ICU. The chest x-ray that was done showed cardiomegaly with mild pulm vessel congestion. He did she was in a good location. Inserted triple- lumen catheter and arterial line on this patient for blood pressure monitoring and hemodynamic support. At this point in time, the patient is normotensive. Blood gas showed a pH of 7.47 with a pCO2 of 35 and a pO2 of 316. This was on FiO2 of 100% with a PEEP of 5 and a total volume of 400 with a rate of 28. Morning c blood work showed a white cell count of 7.5 with a hemoglobin 8.2. Sodium was at 132, serum bicarb was at 23 with a BUN of 31 and a creatinine of 4.5. The patient also had a gamma GT of 331, AST of 80, ALT of 52, alkaline phosphatase of 506 and the patient's bilirubin was at 2.8. Lipase level was at 97. Note that the patient has end-stage renal disease on HD undergoes hemodialysis. The last hemodialysis session was yesterday with a total of 2 L of fluid removed. She also has hypertension, hypothyroidism, diabetes mellitus type 2 and the patient has been maintained on Humalog 22 units with meals and Lantus 23 units twice a day along with a sliding scale coverage. The patient has issues with chronic anemia. No history of any previous cardiac disease to my knowledge. A cardiac stress test was done preoperatively on 06/03/2023 showed no evidence of any reversible ischemia and the patient had an ejection fraction of 40%. Noted the patient surgery was done on 06/03/2023 and the patient underwent a laparoscopic cholecystectomy. Surgical wound site is dry clean and intact at this point in time. On today's evaluation of 06/08/2023, the patient remains intubated on mechanical ventilator. The patient is postcardiac arrest and this was a brief cardiopulmonary arrest as discussed earlier. This morning, the patient is adequately sedated propofol running at 30 mcg/kg/min. IV fluids are currently at KVO. She remains on mechanical ventilator, assist-control mode with rate of 28, tidal volume of 400, FiO2 of 40% with a PEEP of 5. Blood gas shows a pH of 7.52 with a pCO2 of 32 and pO2 of 68. The patient underwent a bout of hemodialysis yesterday with a total of 1 l of ultrafiltration and repeat chest x-ray from today is still showing worsening interstitial edema and the patient has a small right-sided pleural effusion and persistent left retrocardiac opacity consistent with pleural effusion. The patient is going to undergo another session of hemodialysis today. Hemodynamically, the patient is stable and she is on no pressors. IV fluids at KVO. No urine output. The blood work shows an obese, 7.9, hemoglobin is 8.3 and platelet count of 121. Sodium is at 132, BUN is at 37 with a creatinine of 5.7 and his sugar is at 140. Troponin from yesterday was 0.026. The patient remains on Rocephin and Flagyl. The patient is also on 32 units of Levemir insulin twice a day in addition to NovoLog sliding scale coverage. General surgery is on the case. Nephrology on the case. LFTs from today are still pending. On today's evaluation of 06/09/2023, the patient is still intubated on the mechanical ventilator. Chest x-ray still showing pulm edema and bilateral pl eural effusions. The patient underwent hemodialysis yesterday and a total of 4 L of fluid was removed. Making recommendations for another session of hemodialysis today. She remains on norepinephrine 0.04 mcg/kg/min. She is on propofol at 30 mcg/kg/h and she is arousable once of sedation. The patient is on IV fluids at KVO. No urine output. Low-dose norepinephrine is still running. NG tube is in place and output is minimal at this point in time. She is on assist-control mode of mechanical ventilation at rate of 28, tidal volume of 400, FiO2 of 35 % and PEEP of 5, and the blood gas from today shows a pH of 7.56 with a pCO2 of 29 and pO2 of 76. BUN is at 28 with a creatinine of 5.3 and a sodium levels at 133. The white cell count of 9 with a hemoglobin of 8.4 and a platelet count of 135. She is afebrile. Sputum sample is showing Marla albicans. On a separate note, the patient did have episodes of hypoglycemia. She was taken Levemir insulin and this will be placed on hold. She remains n.p.o. for now. Patient was seen today on 06/10/2023, remains intubated and mechanically ventilated. Patient is on assist-control rate of 16 tidal volume 400 FiO2 35% PEEP of 5 ABG showed a pO2 of 117 pCO2 38 pH of 7.40, hence no changes were made today. Vent settings remain the same. Patient is undergoing hemodialysis, still requiring pressors/norepinephrine at 0.09 mcg/kg/min still on propofol at 35 mcg/kg/min patient is receiving tube feeding. She is receiving hemodialysis today and this is scheduled for Saturday and Saturday. Looking back at the note, on 06/06, patient underwent ERCP, and she developed a cardiac arrest. Her initial admission date was on 05/29. When the patient had CPR, she was actually in pulseless electrical activity she did receive CPR epinephrine and atropine. Received CPR for anywhere between 2 to 3 minutes, and there was return of spontaneous circulation and the blood pressure. WBC count today is 9.3 hemoglobin is 8.4. Basic metabolic profile is normal bicarb is 18 BUN is 30, creatinine 6.49 chest x-ray is showing worsening infiltrates/pneumonia. Bilateral airspace disease. 20 today on 06/11/2023, patient remains in the ICU, intubated and mechanically ventilated. Patient is on assist-control rate of 16 tidal volume 400 FiO2 35% PEEP of 5 ABG showed a pO2 of 109 pCO2 38 pH of 7.41 chest x-ray showed cardiomegaly, and bilateral pulmonary edema, underlying pneumonia is not entirely ruled out, patient is being dialyzed. BBC count is 9.6 hemoglobin 8.2 platelets are 115, basic metabolic profile is normal renal profile showed a BUN of 22 creatinine 5.16 total bilirubin is 2.4 alkaline phosphatase 575, sputum cultures positive for Marla species not albicans and not Marla glabrata patient is still on propofol, he is arousable, follows very simple instructions like closing eyes and squeezing hands. She is on propofol at 30 mcg/kg/min still requiring norepinephrine at 0.05 mcg/kg/min she is receiving enteral feed ing at 30 cc/h. Antibiotics espino patient is on ceftriaxone and vancomycin Objective - Vital Signs Vital signs: Vital Signs Temp 97.3 F L 06/11/23 11:45 Pulse 58 L 06/11/23 11:45 Resp 18 06/11/23 11:45 BP 122/51 06/11/23 10:00 Pulse Ox 97 06/11/23 11:45 FiO2 35 06/11/23 10:56 Intake & Output 06/10/23 06/11/23 06/11/23 18:59 06:59 18:59 Intake Total 1682.551 975.791 700 Output Total 3400 0 0 Balance -1717.449 975.791 700 Weight 148.6 kg 143.9 kg Intake: IV 200 110 520 NS 0.9% KVO 110 20 Vancomycin 2,000 mg In 500 Sodium Chloride 0.9% 500 ml 500 ml @ 167 mls/hr IVPB ONCE ONE Rx#: [id number] cefTRIAXone 2 gm In 100 Sodium Chloride 0.9% 50 ml @ 100 mls/hr IVPB Q24HR [facility] Rx#:[id number] metroNIDAZOLE-NS PMX 500 100 mg In Saline 1 100ml.bag @ 100 mls/hr IVPB Q8HR [facility] Rx#:[id number] Intake, IV Titration 912.551 445.791 Amount Norepinephrine 4 mg In 372.071 298.623 Sodium Chloride 0.9% 250 ml @ 0.03 MCG/KG/MIN 16. 459 mls/hr IV .[id number] [facility] Rx#:[id number] Vancomycin 2,000 mg In 300 Sodium Chloride 0.9% 500 ml 500 ml @ 167 mls/hr IVPB ONCE ONE Rx#: [id number] propofoL 1,000 mg In 240.48 147.168 Empty Bag 1 bag @ 15 MCG/ KG/MIN 8.64 mls/hr IV . [id number] [facility] Rx#:[id number] Tube Feeding 80 300 180 Hemodialysis 400 Other 90 120 Output: Urine 0 0 0 Hemodialysis 3400 ABP, PAP, CO, CI - Last Documented Arterial Blood Pressure 118/36 - Exam General Appearance: Reveals 68-year-old female intubated mechanically ventilated sedated but arousable and follows simple instructions Neck HEENT: Supple, no lymphadenopathy, no thyroid enlargement, no carotid bruits. Endotracheal tube and orogastric tube are intact. Lungs: Symmetrical chest expansion, rhonchi bilaterally. Chest Wall: No chest wall deformity, no tenderness. Heart: S1-S2, no S3 gallop. Murmur. Abdomen: Soft nontender no megaly no rebound, suspect small ascites. Extremities: 1+ bipedal edema. Pulses: Distal pulses bilaterally slightly diminished. Skin: Skin color, texture, tugor normal, no rashes or lesions. Neurologic: Sedated, intubated mechanically ventilated on propofol. She seems to follow simple instructions, squeezing hands and closing eyes Psychiatric: Could not assess - Labs CBC & Chem 7: 06/11/23 04:23 06/11/23 04:23 Labs: Abnormal Lab Results - Last 24 Hours (Table) 06/10/23 06/10/23 06/11/23 Range/Units 17:50 23:39 04:23 RBC 2.27 L (3.80-5.40) m/uL Hgb 8.2 L (11.4-16.0) gm/dL Hct 23.7 L (34.0-46.0) % MCV 104.5 H (80.0-100.0) fL MCH 36.1 H (25.0-35.0) pg RDW 18.0 H (11.5-15.5) % Plt Count 115 L (150-450) k/uL ABG pO2 (83-108) mmHg ABG Total CO2 (19-24) mmol/L ABG O2 Saturation (94-97) % Sodium (137-145) mmol/L Carbon Dioxide (22-30) mmol/L BUN (7-17) mg/dL Creatinine (0.52-1.04) mg/dL Glucose (74-99) mg/dL POC Glucose (mg/dL) 162 H 137 H (70-110) mg/dL Calcium (8.4-10.2) mg/dL Total Bilirubin (0.2-1.3) mg/dL AST (14-36) U/L Alkaline Phosphatase (38-126) U/L Total Protein (6.3-8.2) g/dL Albumin (3.5-5.0) g/dL 06/11/23 06/11/23 06/11/23 Range/Units 04:23 05:40 06:46 RBC (3.80-5.40) m/uL Hgb (11.4-16.0) gm/dL Hct (34.0-46.0) % MCV (80.0-100.0) fL MCH (25.0-35.0) pg RDW (11.5-15.5) % Plt Count (150-450) k/uL ABG pO2 109 H (83-108) mmHg ABG Total CO2 25 H (19-24) mmol/L ABG O2 Saturation 98.7 H (94-97) % Sodium 128 L (137-145) mmol/L Carbon Dioxide 19 L (22-30) mmol/L BUN 22 H (7-17) mg/dL Creatinine 5.16 H (0.52-1.04) mg/dL Glucose 147 H (74-99) mg/dL POC Glucose (mg/dL) 160 H (70-110) mg/dL Calcium 7.5 L (8.4-10.2) mg/dL Total Bilirubin 2.4 H (0.2-1.3) mg/dL AST 64 H (14-36) U/L Alkaline Phosphatase 575 H (38-126) U/L Total Protein 5.5 L (6.3-8.2) g/dL Albumin 2.2 L (3.5-5.0) g/dL Microbiology - Last 24 Hours (Table) 06/10/23 12:01 Gram Stain - Preliminary Arm - Right Assessment and Plan Assessment: Impression: Cardiac arrest/PEA status post 1 round of CPR for a total of 2 to 3 minutes Acute hypoxic respiratory failure secondary to above Fluid overload requiring hemodialysis with pulmonary edema and bilateral pleural effusions, patient is on hemodialysis Possible aspiration pneumonia Acute cholecystitis status postcholecystectomy done on 06/03/2023 Choledocholithiasis requiring ERCP done on 06/07/2023 with sphincterectomy and extraction of 3 small stone Morbid obesity Benign essential hypertension Type 2 diabetes, on Levemir and insulin and sliding scale History of hypothyroidism Abnormal liver enzymes secondary to choledocholithiasis possible cholangitis. End-stage renal disease on hemodialysis Anemia of chronic disease Recommendation: Continue ventilatory support, however will try patient on propofol today and address mental status and needs to be more awake before any weaning trials could be attempted Continue large-volume ultrafiltration/dialysis Continue antibiotics patient is presently on Rocephin and vancomycin Continue hemodynamic support/pressors Continue to monitor liver profile and renal profile Continue enteral feeding and advance as tolerated Please sedation interruption and assessment of mental status Continue DuoNeb updrafts Continue GI and DVT prophylaxis/Lovenox and Protonix Continue Synthroid Patient is critically ill, prognosis remains quite guarded Will continue to follow. Critical care time is over 30 minutes Time with Patient: Greater than 30
[2023-06-11 13:57] LABS: Glucose,Whole Blood 189 mg/dL (70-110)
--- NOTE | 2023-06-11 14:57 | P.PN ---
Subjective Progress Note Date: 06/11/23 CHIEF COMPLAINT: Cholecystitis HISTORY OF PRESENT ILLNESS: Patient postop day #9 status post laparoscopic cholecystectomy. Patient status post ERCP with stone extraction. Patient had cardiac arrest after ERCP currently is in the ICU and remains intubated on mechanical ventilation. There weaning sedation again today. Getting hemodialysis again today. WBC 9.6 total bilirubin is down from 2.9-2.4 LFTs trending downwards PHYSICAL EXAM: VITAL SIGNS: Reviewed. GENERAL: no acute distress. ABDOMEN: Soft. Nondistended. Incision sites clean dry and intact ASSESSMENT: 1. Cholecystitis status post laparoscopic cholecystectomy 2. Choledocholithiasis status post ERCP with stone extraction 3. Cardiac arrest PLAN: -Continue medical management -Continue tube feeds for nutrition support -Repeat CMP in a.m. Physician Trekking Guide note has been reviewed by physician. Signing provider agrees with the documented findings, assessment, and plan of care. Objective - Vital Signs Vital signs: Vital Signs Temp 97.3 F L 06/11/23 11:45 Pulse 58 L 06/11/23 11:45 Resp 18 06/11/23 11:45 BP 122/51 06/11/23 10:00 Pulse Ox 97 06/11/23 11:45 FiO2 35 06/11/23 12:00 Intake & Output 06/10/23 06/11/23 06/11/23 18:59 06:59 18:59 Intake Total 1682.551 911.760 7009.403 Output Total 3400 0 0 Balance -1717.449 579.362 3961.403 Weight 148.6 kg 143.9 kg Intake: IV 200 110 520 NS 0.9% KVO 110 20 Vancomycin 2,000 mg In 500 Sodium Chloride 0.9% 500 ml 500 ml @ 167 mls/hr IVPB ONCE ONE Rx#: [id number] cefTRIAXone 2 gm In 100 Sodium Chloride 0.9% 50 ml @ 100 mls/hr IVPB Q24HR [facility] Rx#:[id number] metroNIDAZOLE-NS PMX 500 100 mg In Saline 1 100ml.bag @ 100 mls/hr IVPB Q8HR [facility] Rx#:[id number] Intake, IV Titration 912.551 445.791 300.403 Amount Norepinephrine 4 mg In 372.071 298.623 193.491 Sodium Chloride 0.9% 250 ml @ 0.03 MCG/KG/MIN 16. 459 mls/hr IV .[id number] [facility] Rx#:[id number] Vancomycin 2,000 mg In 300 Sodium Chloride 0.9% 500 ml 500 ml @ 167 mls/hr IVPB ONCE ONE Rx#: [id number] propofoL 1,000 mg In 240.48 147.168 106.912 Empty Bag 1 bag @ 15 MCG/ KG/MIN 8.64 mls/hr IV . [id number] [facility] Rx#:[id number] Tube Feeding 80 300 180 Hemodialysis 400 Other 90 120 Output: Urine 0 0 0 Hemodialysis 3400 ABP, PAP, CO, CI - Last Documented Arterial Blood Pressure 118/36 - Labs CBC & Chem 7: 06/11/23 04:23 06/11/23 04:23 Labs: Abnormal Lab Results - Last 24 Hours (Table) 06/10/23 06/10/23 06/11/23 Range/Units 17:50 23:39 04:23 RBC 2.27 L (3.80-5.40) m/uL Hgb 8.2 L (11.4-16.0) gm/dL Hct 23.7 L (34.0-46.0) % MCV 104.5 H (80.0-100.0) fL MCH 36.1 H (25.0-35.0) pg RDW 18.0 H (11.5-15.5) % Plt Count 115 L (150-450) k/uL ABG pO2 (83-108) mmHg ABG Total CO2 (19-24) mmol/L ABG O2 Saturation (94-97) % Sodium (137-145) mmol/L Carbon Dioxide (22-30) mmol/L BUN (7-17) mg/dL Creatinine (0.52-1.04) mg/dL Glucose (74-99) mg/dL POC Glucose (mg/dL) 162 H 137 H (70-110) mg/dL Calcium (8.4-10.2) mg/dL Phosphorus (2.5-4.5) mg/dL Total Bilirubin (0.2-1.3) mg/dL AST (14-36) U/L Alkaline Phosphatase (38-126) U/L Total Protein (6.3-8.2) g/dL Albumin (3.5-5.0) g/dL 06/11/23 06/11/23 06/11/23 Range/Units 04:23 04:23 05:40 RBC (3.80-5.40) m/uL Hgb (11.4-16.0) gm/dL Hct (34.0-46.0) % MCV (80.0-100.0) fL MCH (25.0-35.0) pg RDW (11.5-15.5) % Plt Count (150-450) k/uL ABG pO2 109 H (83-108) mmHg ABG Total CO2 25 H (19-24) mmol/L ABG O2 Saturation 98.7 H (94-97) % Sodium 128 L (137-145) mmol/L Carbon Dioxide 19 L (22-30) mmol/L BUN 22 H (7-17) mg/dL Creatinine 5.16 H (0.52-1.04) mg/dL Glucose 147 H (74-99) mg/dL POC Glucose (mg/dL) (70-110) mg/dL Calcium 7.5 L (8.4-10.2) mg/dL Phosphorus 5.5 H (2.5-4.5) mg/dL Total Bilirubin 2.4 H (0.2-1.3) mg/dL AST 64 H (14-36) U/L Alkaline Phosphatase 575 H (38-126) U/L Total Protein 5.5 L (6.3-8.2) g/dL Albumin 2.2 L (3.5-5.0) g/dL 06/11/23 06/11/23 Range/Units 06:46 13:53 RBC (3.80-5.40) m/uL Hgb (11.4-16.0) gm/dL Hct (34.0-46.0) % MCV (80.0-100.0) fL MCH (25.0-35.0) pg RDW (11.5-15.5) % Plt Count (150-450) k/uL ABG pO2 (83-108) mmHg ABG Total CO2 (19-24) mmol/L ABG O2 Saturation (94-97) % Sodium (137-145) mmol/L Carbon Dioxide (22-30) mmol/L BUN (7-17) mg/dL Creatinine (0.52-1.04) mg/dL Glucose (74-99) mg/dL POC Glucose (mg/dL) 160 H 189 H (70-110) mg/dL Calcium (8.4-10.2) mg/dL Phosphorus (2.5-4.5) mg/dL Total Bilirubin (0.2-1.3) mg/dL AST (14-36) U/L Alkaline Phosphatase (38-126) U/L Total Protein (6.3-8.2) g/dL Albumin (3.5-5.0) g/dL Microbiology - Last 24 Hours (Table) 06/10/23 12:01 Gram Stain - Preliminary Arm - Right
[2023-06-11 15:58] LABS: ABG Base Excess 3.8 mmol/L; ABG HCO3 28 mmol/L (21-25); ABG Oxygen Saturation 98.4 % (94-97); ABG PCO2 38 mmHg (35-45); ABG PH 7.47 (7.35-7.45); ABG PO2 106 mmHg (83-108); ABG TCO2 29 mmol/L (19-24)
[2023-06-11 16:00] LABS: Allen Test Performed? no
[2023-06-11] MEDS ORDERED: metroNIDAZOLE-NS PMX 500 MG in SALINE 1 100ML.BAG IVPB SCH (16:45)
[2023-06-11 18:21] LABS: Glucose,Whole Blood 197 mg/dL (70-110)
[2023-06-11] MEDS: metroNIDAZOLE-NS PMX 500 MG in SALINE 1 100ML.BAG IVPB SCH (20:59)
--- NOTE | 2023-06-11 21:10 | P.PN ---
Subjective Progress Note Date: 06/11/23 Principal diagnosis: Reason for follow-up is possible right upper extremity AV graft infection Patient is a 68-year-old female with multiple comorbidity initially presented to the hospital with nausea vomiting diagnosed with cholecystitis status post laparoscopic ostectomy followed by ERCP sphincterotomy and balloon stone extraction did have a cardiac arrest requiring elicitation and subsequent admission to ICU patient did have a history of renal failure on dialysis through the right upper extremity AV graft and noted to have some drainage prompting this consultation. On today's visit that is 06/11/2023 the patient remains to be afebrile, the patient remains to be intubated on the vent FiO2 40% no significant purulent secretions through the day patient was undergoing dialysis and the dialysis nurse did mention there was some purulent drainage when she was using the graft for the dialysis. Cultures obtained yesterday so far pending patient did have a white count of 9.6 and a creatinine of 5.16 Objective - Vital Signs Vital signs: Vital Signs Temp 97.3 F L 06/11/23 11:45 Pulse 58 L 06/11/23 11:45 Resp 18 06/11/23 11:45 BP 122/51 06/11/23 10:00 Pulse Ox 97 06/11/23 11:45 FiO2 35 06/11/23 10:56 Intake & Output 06/10/23 06/11/23 06/11/23 18:59 06:59 18:59 Intake Total 1682.551 975.791 700 Output Total 3400 0 0 Balance -1717.449 975.791 700 Weight 148.6 kg 143.9 kg Intake: IV 200 110 520 NS 0.9% KVO 110 20 Vancomycin 2,000 mg In 500 Sodium Chloride 0.9% 500 ml 500 ml @ 167 mls/hr IVPB ONCE ONE Rx#: [id number] cefTRIAXone 2 gm In 100 Sodium Chloride 0.9% 50 ml @ 100 mls/hr IVPB Q24HR [facility] Rx#:[id number] metroNIDAZOLE-NS PMX 500 100 mg In Saline 1 100ml.bag @ 100 mls/hr IVPB Q8HR [facility] Rx#:[id number] Intake, IV Titration 912.551 445.791 Amount Norepinephrine 4 mg In 372.071 298.623 Sodium Chloride 0.9% 250 ml @ 0.03 MCG/KG/MIN 16. 459 mls/hr IV .[id number] [facility] Rx#:[id number] Vancomycin 2,000 mg In 300 Sodium Chloride 0.9% 500 ml 500 ml @ 167 mls/hr IVPB ONCE ONE Rx#: [id number] propofoL 1,000 mg In 240.48 147.168 Empty Bag 1 bag @ 15 MCG/ KG/MIN 8.64 mls/hr IV . [id number] [facility] Rx#:[id number] Tube Feeding 80 300 180 Hemodialysis 400 Other 90 120 Output: Urine 0 0 0 Hemodialysis 3400 ABP, PAP, CO, CI - Last Documented Arterial Blood Pressure 118/36 - Exam GENERAL DESCRIPTION: An elderly female intubated on the vent RESPIRATORY SYSTEM: Unlabored breathing , decreased breath sounds at bases HEART: S1 S2 regular rate and rhythm , ABDOMEN: Soft , no tenderness EXTREMITIES: Right upper extremity AV graft site with bruising some swelling no redness - Labs CBC & Chem 7: 06/11/23 04:23 06/11/23 04:23 Labs: Abnormal Lab Results - Last 24 Hours (Table) 06/10/23 06/10/23 06/11/23 Range/Units 17:50 23:39 04:23 RBC 2.27 L (3.80-5.40) m/uL Hgb 8.2 L (11.4-16.0) gm/dL Hct 23.7 L (34.0-46.0) % MCV 104.5 H (80.0-100.0) fL MCH 36.1 H (25.0-35.0) pg RDW 18.0 H (11.5-15.5) % Plt Count 115 L (150-450) k/uL ABG pO2 (83-108) mmHg ABG Total CO2 (19-24) mmol/L ABG O2 Saturation (94-97) % Sodium (137-145) mmol/L Carbon Dioxide (22-30) mmol/L BUN (7-17) mg/dL Creatinine (0.52-1.04) mg/dL Glucose (74-99) mg/dL POC Glucose (mg/dL) 162 H 137 H (70-110) mg/dL Calcium (8.4-10.2) mg/dL Phosphorus (2.5-4.5) mg/dL Total Bilirubin (0.2-1.3) mg/dL AST (14-36) U/L Alkaline Phosphatase (38-126) U/L Total Protein (6.3-8.2) g/dL Albumin (3.5-5.0) g/dL 06/11/23 06/11/23 06/11/23 Range/Units 04:23 04:23 05:40 RBC (3.80-5.40) m/uL Hgb (11.4-16.0) gm/dL Hct (34.0-46.0) % MCV (80.0-100.0) fL MCH (25.0-35.0) pg RDW (11.5-15.5) % Plt Count (150-450) k/uL ABG pO2 109 H (83-108) mmHg ABG Total CO2 25 H (19-24) mmol/L ABG O2 Saturation 98.7 H (94-97) % Sodium 128 L (137-145) mmol/L Carbon Dioxide 19 L (22-30) mmol/L BUN 22 H (7-17) mg/dL Creatinine 5.16 H (0.52-1.04) mg/dL Glucose 147 H (74-99) mg/dL POC Glucose (mg/dL) (70-110) mg/dL Calcium 7.5 L (8.4-10.2) mg/dL Phosphorus 5.5 H (2.5-4.5) mg/dL Total Bilirubin 2.4 H (0.2-1.3) mg/dL AST 64 H (14-36) U/L Alkaline Phosphatase 575 H (38-126) U/L Total Protein 5.5 L (6.3-8.2) g/dL Albumin 2.2 L (3.5-5.0) g/dL 06/11/23 Range/Units 06:46 RBC (3.80-5.40) m/uL Hgb (11.4-16.0) gm/dL Hct (34.0-46.0) % MCV (80.0-100.0) fL MCH (25.0-35.0) pg RDW (11.5-15.5) % Plt Count (150-450) k/uL ABG pO2 (83-108) mmHg ABG Total CO2 (19-24) mmol/L ABG O2 Saturation (94-97) % Sodium (137-145) mmol/L Carbon Dioxide (22-30) mmol/L BUN (7-17) mg/dL Creatinine (0.52-1.04) mg/dL Glucose (74-99) mg/dL POC Glucose (mg/dL) 160 H (70-110) mg/dL Calcium (8.4-10.2) mg/dL Phosphorus (2.5-4.5) mg/dL Total Bilirubin (0.2-1.3) mg/dL AST (14-36) U/L Alkaline Phosphatase (38-126) U/L Total Protein (6.3-8.2) g/dL Albumin (3.5-5.0) g/dL Microbiology - Last 24 Hours (Table) 06/10/23 12:01 Gram Stain - Preliminary Arm - Right Assessment and Plan (1) Infection of AV graft for dialysis Current Visit: Yes Status: Acute Code(s): T82.7XXA - INFECT/INFLM REACT D/T OTH CARDI/VASC DEV/IMPLNT/GRFT, INIT SNOMED Code(s): 803776657 Plan: 1patient with a right upper extremity AV graft in this patient with a history of end-stage renal disease on dialysis admission to hospital abdominal pain status postcholecystectomy followed by ERCP with extraction of stones and did have a cardiac arrest admission to the ICU no concerning for drainage from the AV graft possible infection however the patient not running any fever no significant erythema was noticed and did have a normal white count. 2blood and local cultures obtained which are currently pending also discussed with the wastewater technician to obtain a set of blood cultures from the dialysis graft site 3-patient to continue with vancomycin while waiting for the cultures to be finalized Dictation was produced using [employer] dictation software. please excuse any g rammatical, word or spelling errors. Time with Patient: Less than 30
[2023-06-11] MEDS: IPRATROPIUM-ALBUTEROL 3 ML NEB INHALATION SCH (21:58)
[2023-06-12 00:17] LABS: Glucose,Whole Blood 161 mg/dL (70-110)
[2023-06-12 04:06] LABS: Anisocytosis Slight; Basophils % (A) 0 %; Eosinophils # (A) 0.2 k/uL (0-0.7); Eosinophils % (A) 3 %; HCT 22.7 % (34.0-46.0); HGB 7.5 gm/dL (11.4-16.0); Lymphocytes % (A) 13 %; MCH 34.4 pg (25.0-35.0); MCHC 32.9 g/dL (31.0-37.0); MCV 104.7 fL (80.0-100.0); Macrocytosis Moderate; Mean Platelet Volume 10.5; Monocytes # (A) 0.3 k/uL (0-1.0); Monocytes % (A) 3 %; Neutrophils # (A) 5.9 k/uL (1.3-7.7); Neutrophils % (A) 79 %; Platelet Count 115 k/uL (150-450); RBC 2.17 m/uL (3.80-5.40); RDW 17.3 % (11.5-15.5); WBC 7.6 k/uL (3.8-10.6)
[2023-06-12 04:36] LABS: ALT 33 U/L (4-34); AST 61 U/L (14-36); African American GFR (CKD) 13 (>60 ml/min/1.73 sqM); Albumin 2.1 g/dL (3.5-5.0); Alkaline Phosphatase 546 U/L (38-126); Anion Gap 8 mmol/L; Blood Urea Nitrogen 20 mg/dL (7-17); Calcium 7.6 mg/dL (8.4-10.2); Carbon Dioxide 26 mmol/L (22-30); Chloride 96 mmol/L (98-107); Glucose 135 mg/dL (74-99); Non-African American GFR(CKD) 11 (>60 ml/min/1.73 sqM); Potassium 3.6 mmol/L (3.5-5.1); Sodium 130 mmol/L (137-145); Total Bilirubin 2.2 mg/dL (0.2-1.3); Total Protein 5.5 g/dL (6.3-8.2)
--- NOTE | 2023-06-12 05:55 | P.PN ---
Subjective Progress Note Date: 06/11/23 HISTORY OF PRESENT ILLNESS: 68-year-old female 89 office patient who was hospitalized recently at [facility] for abscess and infected armpit area with slight recurrent abdominal discomfort with gallbladder dyskinesia at the time. Patient has end-stage renal disease on hemodialysis 3 times a week also has known to have type 2 diabetes, obstructive sleep apnea, hypertension, hyperlipidemia, hypothyroidism, she brought to the emergency department because of intractable nausea vomiting and diarrhea could not complete dialysis yesterday with worsening fever and chills with abdominal distention without any significant chest pain no bloody stool. Also had infiltrate her fistula which the reason why here hemodialysis was stopped early. With her current symptoms and the significant abnormal liver function test from her last hospitalization which patient was study in detail and found to have biliary hypokinesia via HIDA scan done last month. Patient liver function test this time came back with total bilirubin of 1.9 with AST of 414 and ALT 154 with alkaline phosphatase 224 also lipase of 315 with amylase of 49 which make the diagnosis of subacute pancreatitis as well. Also she continued to have significant anemia with hemoglobin of 8.1 platelet count 1 65, 000 patient creatinine was 6.5 with BUN of 39. Patient was seen and evaluated at the emergency department with above complaint COVID influenza and RSV were negative, CT of the abdomen and pelvis was performed again this time and showed no bowel obstruction with no acute finding identified to the amount of patient's symptoms of the pancreas visualized to be fine with small but prominent calcification on the gallbladder as a gallstone with no surrounding ill-defined fluid and fat stranding. Gallbladder ultrasound was performed again as well and showed hepatomegaly with heterogeneous hyper echoic appearance of the liver suggestive of diffuse fatty infiltrate with hepatocellular disease with no adjacent ascites, gallstones redemonstrated without ultrasound evidence of acute cholecystitis. Patient was hospitalized and consult at this point gastroenterology for her recurrent symptoms with nausea and vomiting to conclude the possibility of gallbladder and gallstone with abnormal liver function test. And also to help to make decision whether her gallbladder should be removed or not. Cardiology consultation for cardiology clearance which patient has no history of cardiac disease no change on her EKG at this point or any change in cardiac enzymes. Nephrology consultation was requested to continue hemodialysis. Also request consult of vascular for her fistula. 06/03/2023: Patient was evaluated through the weekend by cardiology, general surgery, nephrology. Was continued on hemodialysis, also continue on IV antibiotic with Rocephin and Flagyl due to slight concern of leukocytosis. 3 did not have any increased nausea or vomiting no diarrhea, liver function test still slightly bit elevated. Cardiology evaluated patient ordered an echocardiogram and and furthermore decided to do a nuclear stress test before clearing her for surgery. Nuclear stress test scheduled this morning if patient goes through with no problem she will be going for her cholecystectomy as an extent. 06/04/2023: Laboratory values showed slight increase in alkaline phosphatase along with total bilirubin make the possibility of having obstruction of the common bile with stone or other is much higher. Delay patient discharge at this point and should go for an MRCP initially if there is any finding consistent with stone or blockage of the common duct she might need to go for an ERCP to extract stone and stent the area. Will delay discharge till this is done and cleared in the meanwhile repeat labs again tomorrow. Patient hemodialysis days today which we will continue to do as an inpatient. 06/05/2023: Patient MRCP came back with several area of calcification in the common duct consistent with cholelithiasis. Patient will be seen gastroenterology for ERCP probably to extract the stone and probably do stent in the common duct. 06/06/2023: After finishing the MRCP and finding more calcification and possibly stone across the common duct patient liver enzymes continue to be elevated total bilirubin still at 2.8 right alk phos 541 AST 59 ALT 62, specially with the current findings will require to go for an ERCP and possible required to extract the stone and put a stent in the common duct. Apparently gastroenterology are planning to do this procedure on Saturday. Meanwhile patient is asymptomatic continue clear liquid diet and advance gradually and dialysis will be done today as well. 06/07/2023: Patient ended up going for her ERCP 3 stones were extracted through the procedure but shortly after procedure she coded and required resuscitation lasted for over a few minutes after giving her atropine patient pulse rate returned but she was intubated and transferred to the ICU at this point. Patient has been resting in the ICU after the current complication, family apparently were updated by gastroenterology along with senior category manager. Continue to do the complication currently patient is not conscious but resting comfortably i n the ICU. 06/08/2023: Patient remain in the ICU on mechanical ventilation, still on vasopressor, she will be going for dialysis today. Her level of responsiveness still limited. Labs today with hemoglobin is 8.3 liver function test were not done will add it to the lab done today. She is still seen pulmonary and cardiology she is still quite hypotensive with pulse rate is down remain on Levophed at this point try to keep her blood pressure systolic above 100. 06/09/2023: She is still intubated on mechanical ventilation she is fluid overload still on vasopressor that she is awake alert will be hopefully extubated tomorrow with her fluid overload will be on hemodialysis today which will help some. Her laboratory value with hemoglobin is 8.4 white blood cell 9.0 ABG still showing blood patient had quite with respiratory alkalosis. Also still required a smaller dose of vasopressor. Will initiate feeding via NG tube today. 06/10/2023: Patient remain in the ICU on mechanical ventilation and still on mild sedation on vasopressor with Levophed, she will be going on ultrafiltration on d ialysis today repeat another 1 tomorrow on backing off on sedation she is responding sound but she still require sedation at this point and she is not ready to be extubated yet. Pulmonary Dr. Anguiano keeping her on assist control rate of 16 with volume of 400 FiO2 of 35 percentile with PEEP of 5 still on propofol at 35 mcg/min still receiving tube feeding at testing today with hemoglobin 8.4 creatinine 6.49 chest x-ray showed worsening infiltrate/pneumonia bilateral space disease. Will continue antibiotics with Rocephin and Flagyl continue enteral feeding prior to advance it continue sedation at this point she is not ready to be extubated today. 06/11/2023: She is remain on mechanical ventilation on a smaller dose of vasopressor is having dialysis today blood pressure still dropping down around dialysis requiring midodrine pulmonary try to wean her off vasopressor and try to extubate. Sputum culture apparently was positive for candidiasis infectious disease and probably have her initiate fluconazole. Still trying to extubate the patient still having quite a bit of fluid overload at this point. Hemoglobin of 8.2 does not require any blood transfusion. She still been treated with wide spectrum antibiotic with Rocephin and vancomycin, still continuous enteral feeding as well. Mostly medication she was on orally with been done through the NG tube. REVIEW OF SYSTEMS: CONSTITUTIONAL: Sedated on mechanical ventilation.. EYES: No icterus sclerae, no conjunctivitis. EARS, NOSE, MOUTH, THROAT, and FACE: No sore throat, lymphadenopathy, carotid bruits or deformity. RESPIRATORY: Slight shortness of breath no cough or wheezes.. CARDIOVASCULAR: Positive PND orthopnea palpitation no angina.. GASTROINTESTINAL: Positive abdominal pain with nausea vomiting diarrhea no constipation no acute gastrointestinal bleed no distention or masses.. GENITOURINARY: Decreased urine output she is on hemodialysis.. INTEGUMENT/BREAST: Negative for any muscular injury with mild osteoarthritis.. HEMATOLOGIC/LYMPHATIC: Chronic anemia and hematoma around the fistula graft.. MUSCULOSKELTAL: Negative for Myalgia or arthralgia. NEURLOGICAL: No LOC, Sz or syncope, blurred vision dizziness or abnormality.. BEHAVIORAL/PSYCH: Negative. ENDOCRINE: Negative. PHYSICAL EXAMINATION: General Appearance: Sedated on mechanical ventilation with the ET tube and NG tube are in.. Neck HEENT: Supple, no lymphadenopathy, no thyroid enlargement, no carotid bruits. Lungs: Positive fine rhonchi in the bases with crackles mostly limited area on the right side no wheezes. Chest Wall: Decreased expansion with deep inspiration no tenderness and no deformity was found on exam, no costochondral pain or discomfort. Heart: Regular rate and rhythm, S1, S2 normal, no murmur, rub or gallop. Back: Symmetric, no curvature, ROM normal, no CVA tenderness. Abdomen: Soft with slight tenderness in the mid epigastric and right upper quadrant area no rebound or rigidity slight hepatomegaly not able to feel any splenomegaly at this point and very limited amount of ascites. Extremities: Trace edema, her fistula graft in the left side has slight hematoma on the side. Pulses: 2+ and symmetric. Skin: Skin color, texture, tugor normal, no rashes or lesions. Neurologic: Alert oriented x3 cranial nerves II through XII intact, no motor deficit, no abnormal balance or gait. ASSESSMENT AND PLAN: _Postcardiac arrest not a clear etiology could be PEA or arrhythmia or could be aggravation from the ERCP specially with ascending cholangitis but still on Rocephin and Flagyl for. Patient still covered currently continue vent management continue to watch for any arrhythmia. Still bradycardic. _Acute hypoxic respiratory failure: Remain on mechanical ventilation currently. Still on mechanical ventilation oxygenation is well good. Will try to extubate at this point. _Ventilator dependent respiratory failure: Remain on mechanical ventilation still seen pulmonary regular basis trying to extubate her. _End-stage renal disease: Continue dialysis almost on daily basis try to take the extra fluid the patient is still having mild hypotension require vasopressor and slight midodrine. _Possible ascending cholangitis: Had resolved so far even patient is still been treated with vancomycin and Rocephin for other infection which this could be aspiration pneumonia _Obstructive common duct with gallstone post 3 stone extracted via ERCP along with sphincterectomy. _Acute on subacute pancreatitis now retrospectively This is a result of gallstone passed into the common duct and blocked the pancreatic duct causing pancreatitis. Fortunately pancreatitis is resolved at this point but continue to see more evidence of common duct stone. _Gallstone without any acute cholecystitis: With the possibility of possible common duct stone passing black the pancreatic duct causing subacute pancreatitis patient will remain on antibiotic for treating this? Of ascending cholangitis till infection is clear out till the gallbladder is out. Again after taking her gallbladder out doing an MRCP is showing some common duct stone. ERCP will be needed to extract the stone. _gallbladder dyskinesia with recurrent symptoms of gallstone: Post laparoscopic cholecystectomy successful except still have some stone in the common duct. _Elevated liver function test again following surgery: Post 3 stent removed with ERCP we will repeat liver function test again. _ Common duct stone: Just had 3 stone removed of the common duct via ERCP. _Hypertension: For patient to be maintained on medication was doing midodrine before now the blood pressure being low still on vasopressor with Levophed. _Hypothyroidism: Continue levothyroxine 225 mcg daily on Saturday the rest of the week is on 50 mcg. _Type 2 diabetes: Blood sugar has been low will hold off on long-acting insulin keep patient on Accu-Chek with sliding scale coverage only for the next 24 hours. _Chronic anemia: Iron deficiency from end-stage renal disease continue to watch hemoglobin and iron level continue Procrit. Complication: She is still on mechanical ventilation, still on sedation, still on vasopressor and still on IV antibiotics. Hemodialysis to be done today continue supportive care and pulmonary art line extubate when possible patient still on sedation. Objective - Vital Signs Vital signs: Vital Signs Temp 97.6 F 06/12/23 04:00 Pulse 57 L 06/12/23 04:00 Resp 19 06/12/23 04:00 BP 123/35 06/12/23 01:00 Pulse Ox 98 06/12/23 04:00 FiO2 40 06/11/23 19:30 Intake & Output 06/11/23 06/11/23 06/12/23 06:59 18:59 06:59 Intake Total 799.380 0114.116 207.04 Output Total 0 2900 0 Balance 975.791 -1039.884 207.04 Weight 143.9 kg 149.7 kg Intake: IV 110 780 200 NS 0.9% KVO 110 80 100 Vancomycin 2,000 mg In 500 Sodium Chloride 0.9% 500 ml 500 ml @ 167 mls/hr IVPB ONCE ONE Rx#: [id number] cefTRIAXone 2 gm In 100 Sodium Chloride 0.9% 50 ml @ 100 mls/hr IVPB Q24HR [facility] Rx#:[id number] metroNIDAZOLE-NS PMX 500 100 100 mg In Saline 1 100ml.bag @ 100 mls/hr IVPB Q8HR [facility] Rx#:[id number] Intake, IV Titration 445.791 380.116 7.04 Amount Norepinephrine 4 mg In 298.623 271.764 7.04 Sodium Chloride 0.9% 250 ml @ 0.03 MCG/KG/MIN 16. 459 mls/hr IV .[id number] [facility] Rx#:[id number] propofoL 1,000 mg In 147.168 108.352 Empty Bag 1 bag @ 15 MCG/ KG/MIN 8.64 mls/hr IV . [id number] [facility] Rx#:[id number] Tube Feeding 300 300 Hemodialysis 400 Other 120 Output: Urine 0 0 0 Hemodialysis 2900 ABP, PAP, CO, CI - Last Documented Arterial Blood Pressure 111/34 - Labs CBC & Chem 7: 06/12/23 03:50 06/12/23 03:50 Labs: Abnormal Lab Results - Last 24 Hours (Table) 06/11/23 06/11/23 06/11/23 Range/Units 04:23 05:40 06:46 RBC (3.80-5.40) m/uL Hgb (11.4-16.0) gm/dL Hct (34.0-46.0) % MCV (80.0-100.0) fL RDW (11.5-15.5) % Plt Count (150-450) k/uL ABG pH (7.35-7.45) ABG pO2 109 H (83-108) mmHg ABG HCO3 (21-25) mmol/L ABG Total CO2 25 H (19-24) mmol/L ABG O2 Saturation 98.7 H (94-97) % Sodium (137-145) mmol/L Chloride (98-107) mmol/L BUN (7-17) mg/dL Creatinine (0.52-1.04) mg/dL Glucose (74-99) mg/dL POC Glucose (mg/dL) 160 H (70-110) mg/dL Calcium (8.4-10.2) mg/dL Phosphorus 5.5 H (2.5-4.5) mg/dL Total Bilirubin (0.2-1.3) mg/dL AST (14-36) U/L Alkaline Phosphatase (38-126) U/L Total Protein (6.3-8.2) g/dL Albumin (3.5-5.0) g/dL 06/11/23 06/11/23 06/11/23 Range/Units 13:53 15:56 18:16 RBC (3.80-5.40) m/uL Hgb (11.4-16.0) gm/dL Hct (34.0-46.0) % MCV (80.0-100.0) fL RDW (11.5-15.5) % Plt Count (150-450) k/uL ABG pH 7.47 H (7.35-7.45) ABG pO2 (83-108) mmHg ABG HCO3 28 H (21-25) mmol/L ABG Total CO2 29 H (19-24) mmol/L ABG O2 Saturation 98.4 H (94-97) % Sodium (137-145) mmol/L Chloride (98-107) mmol/L BUN (7-17) mg/dL Creatinine (0.52-1.04) mg/dL Glucose (74-99) mg/dL POC Glucose (mg/dL) 189 H 197 H (70-110) mg/dL Calcium (8.4-10.2) mg/dL Phosphorus (2.5-4.5) mg/dL Total Bilirubin (0.2-1.3) mg/dL AST (14-36) U/L Alkaline Phosphatase (38-126) U/L Total Protein (6.3-8.2) g/dL Albumin (3.5-5.0) g/dL 06/12/23 06/12/23 06/12/23 Range/Units 00:15 03:50 03:50 RBC 2.17 L (3.80-5.40) m/uL Hgb 7.5 L (11.4-16.0) gm/dL Hct 22.7 L (34.0-46.0) % MCV 104.7 H (80.0-100.0) fL RDW 17.3 H (11.5-15.5) % Plt Count 115 L (150-450) k/uL ABG pH (7.35-7.45) ABG pO2 (83-108) mmHg ABG HCO3 (21-25) mmol/L ABG Total CO2 (19-24) mmol/L ABG O2 Saturation (94-97) % Sodium 130 L (137-145) mmol/L Chloride 96 L (98-107) mmol/L BUN 20 H (7-17) mg/dL Creatinine 3.85 H (0.52-1.04) mg/dL Glucose 135 H (74-99) mg/dL POC Glucose (mg/dL) 161 H (70-110) mg/dL Calcium 7.6 L (8.4-10.2) mg/dL Phosphorus (2.5-4.5) mg/dL Total Bilirubin 2.2 H (0.2-1.3) mg/dL AST 61 H (14-36) U/L Alkaline Phosphatase 546 H (38-126) U/L Total Protein 5.5 L (6.3-8.2) g/dL Albumin 2.1 L (3.5-5.0) g/dL Microbiology - Last 24 Hours (Table) 06/10/23 12:01 Gram Stain - Preliminary Arm - Right Wound Culture - Preliminary 06/10/23 12:55 Blood Culture - Preliminary Blood
--- NOTE | 2023-06-12 05:57 | PN ---
PROGRESS NOTE Mrs. Gonzalez is the patient on end-stage renal disease, on dialysis. She had an ERCP and following that, had a situation with a cardiac arrest type picture with bradycardia. However, her troponins are normal. LV function is fairly preserved. She is not on rate lowering agents. Remains in a sinus rhythm today. She seems to be doing well. She is still on a small dose of Levophed, which will be weaned after the dialysis. Vitals are stable otherwise. S1-S2 heard normally. Lungs reveal bilateral ventilator- assisted breath sounds. Abdomen is soft. Lower extremities reveal diminished pulses. Central nervous system assessment was not performed. We would recommend to continue the current therapy and wean off Levophed. Avoid any QT prolonging medications. We will see her as needed. MMODL / IJN: [id number] /
[2023-06-12 06:07] LABS: Glucose,Whole Blood 141 mg/dL (70-110)
--- NOTE | 2023-06-12 10:38 | P.PN ---
Subjective Patient is seen in follow-up for end-stage renal disease. She is maintained on hemodialysis on Saturday schedule. No problems with dialysis yesterday. Extubated. On nasal cannula. Denies chest pain or shortness of breath. Vital signs are stable. General: Resting in bed. HEENT: On nasal cannula. LUNGS: No audible rhonchi or wheezes. HEART: Rate and Rhythm are regular. ABDOMEN: Obese, no distention. EXTREMITITES: Trace edema. Objective - Vital Signs Vital signs: Vital Signs Temp 97.6 F 06/12/23 04:00 Pulse 54 L 06/12/23 09:30 Resp 18 06/12/23 09:30 BP 108/42 06/12/23 09:00 Pulse Ox 96 06/12/23 09:30 FiO2 40 06/11/23 19:30 Intake & Output 06/11/23 06/12/23 06/12/23 18:59 06:59 18:59 Intake Total 1860.116 227.04 70 Output Total 2900 0 0 Balance -1039.884 227.04 70 Weight 149.7 kg Intake: IV 780 220 70 NS 0.9% KVO 80 120 20 Vancomycin 2,000 mg In 500 Sodium Chloride 0.9% 500 ml 500 ml @ 167 mls/hr IVPB ONCE ONE Rx#: [id number] cefTRIAXone 2 gm In 100 50 Sodium Chloride 0.9% 50 ml @ 100 mls/hr IVPB Q24HR [facility] Rx#:[id number] metroNIDAZOLE-NS PMX 500 100 100 mg In Saline 1 100ml.bag @ 100 mls/hr IVPB Q8HR [facility] Rx#:[id number] Intake, IV Titration 380.116 7.04 Amount Norepinephrine 4 mg In 271.764 7.04 Sodium Chloride 0.9% 250 ml @ 0.03 MCG/KG/MIN 16. 459 mls/hr IV .[id number] [facility] Rx#:[id number] propofoL 1,000 mg In 108.352 Empty Bag 1 bag @ 15 MCG/ KG/MIN 8.64 mls/hr IV . [id number] [facility] Rx#:[id number] Tube Feeding 300 Hemodialysis 400 Output: Urine 0 0 0 Hemodialysis 2900 ABP, PAP, CO, CI - Last Documented Arterial Blood Pressure 108/54 - Labs CBC & Chem 7: 06/12/23 03:50 06/12/23 03:50 Labs: Abnormal Lab Results - Last 24 Hours (Table) 06/11/23 06/11/23 06/11/23 Range/Units 04:23 13:53 15:56 RBC (3.80-5.40) m/uL Hgb (11.4-16.0) gm/dL Hct (34.0-46.0) % MCV (80.0-100.0) fL RDW (11.5-15.5) % Plt Count (150-450) k/uL ABG pH 7.47 H (7.35-7.45) ABG HCO3 28 H (21-25) mmol/L ABG Total CO2 29 H (19-24) mmol/L ABG O2 Saturation 98.4 H (94-97) % Sodium (137-145) mmol/L Chloride (98-107) mmol/L BUN (7-17) mg/dL Creatinine (0.52-1.04) mg/dL Glucose (74-99) mg/dL POC Glucose (mg/dL) 189 H (70-110) mg/dL Calcium (8.4-10.2) mg/dL Phosphorus 5.5 H (2.5-4.5) mg/dL Total Bilirubin (0.2-1.3) mg/dL AST (14-36) U/L Alkaline Phosphatase (38-126) U/L Total Protein (6.3-8.2) g/dL Albumin (3.5-5.0) g/dL 06/11/23 06/12/23 06/12/23 Range/Units 18:16 00:15 03:50 RBC 2.17 L (3.80-5.40) m/uL Hgb 7.5 L (11.4-16.0) gm/dL Hct 22.7 L (34.0-46.0) % MCV 104.7 H (80.0-100.0) fL RDW 17.3 H (11.5-15.5) % Plt Count 115 L (150-450) k/uL ABG pH (7.35-7.45) ABG HCO3 (21-25) mmol/L ABG Total CO2 (19-24) mmol/L ABG O2 Saturation (94-97) % Sodium (137-145) mmol/L Chloride (98-107) mmol/L BUN (7-17) mg/dL Creatinine (0.52-1.04) mg/dL Glucose (74-99) mg/dL POC Glucose (mg/dL) 197 H 161 H (70-110) mg/dL Calcium (8.4-10.2) mg/dL Phosphorus (2.5-4.5) mg/dL Total Bilirubin (0.2-1.3) mg/dL AST (14-36) U/L Alkaline Phosphatase (38-126) U/L Total Protein (6.3-8.2) g/dL Albumin (3.5-5.0) g/dL 06/12/23 06/12/23 Range/Units 03:50 06:06 RBC (3.80-5.40) m/uL Hgb (11.4-16.0) gm/dL Hct (34.0-46.0) % MCV (80.0-100.0) fL RDW (11.5-15.5) % Plt Count (150-450) k/uL ABG pH (7.35-7.45) ABG HCO3 (21-25) mmol/L ABG Total CO2 (19-24) mmol/L ABG O2 Saturation (94-97) % Sodium 130 L (137-145) mmol/L Chloride 96 L (98-107) mmol/L BUN 20 H (7-17) mg/dL Creatinine 3.85 H (0.52-1.04) mg/dL Glucose 135 H (74-99) mg/dL POC Glucose (mg/dL) 141 H (70-110) mg/dL Calcium 7.6 L (8.4-10.2) mg/dL Phosphorus (2.5-4.5) mg/dL Total Bilirubin 2.2 H (0.2-1.3) mg/dL AST 61 H (14-36) U/L Alkaline Phosphatase 546 H (38-126) U/L Total Protein 5.5 L (6.3-8.2) g/dL Albumin 2.1 L (3.5-5.0) g/dL Microbiology - Last 24 Hours (Table) 06/10/23 12:01 Gram Stain - Preliminary Arm - Right Wound Culture - Preliminary 06/10/23 12:55 Blood Culture - Preliminary Blood Assessment and Plan Plan: Assessment: 1. End-stage renal disease maintained on hemodialysis on Saturday schedule via AV graft. 2. Infiltrated AV graft. Seen by vascular surgery. Now being used. 3. Nausea and vomiting. CT showed no acute process. Status post laparoscopic cholecystectomy this admission. Also underwent ERCP with 3 small stones extracted. 4. Volume overload. Improving with ultrafiltration. 5. Hypotension maintained on midodrine. Also on Levophed. 6. Diabetes mellitus. 7. Chronic kidney disease mineral bone disease maintained on Renvela. Phosphorus level 5.5 dated June 11, 2023. 8. Anemia of chronic kidney disease. On Aranesp. 9. Status postcardiac arrest. 10. Hypokalemia from poor intake. 11. Metabolic acidosis secondary to chronic kidney disease. Improved postdialysis. 12. Hyponatremia secondary to chronic kidney disease. Hypervolemic. Better. Plan: Hemodialysis tomorrow. 20 mEq potassium supplementation today. Maintain midodrine. Hold for systolic blood pressure greater than 110.
--- NOTE | 2023-06-12 12:23 | P.PN ---
Subjective Progress Note Date: 06/12/23 Principal diagnosis: Cardiac arrest This is a 68-year-old female patient was seen in the endoscopy room as the patient was undergoing an ERCP for choledocholithiasis patient also underwent biliary sphincterectomy and balloon extraction of a total of 3 small stones. Noted the patient presented to the hospital approximately a week ago for epigastric pain along with nausea and vomiting and subsequently patient was found to have elevated and in the bilirubin and transaminitis. CAT scan of the abdomen pelvis showed gallstones and the patient underwent a cholecystectomy approximately 2 days ago. The patient continues to have issues with pain and elevation in LFTs. Based on that, the patient underwent an ERCP today. Note that following the procedure, the patient was being flipped around and end-tidal CO2 was found to be extremely low and subsequently the patient was found to be unresponsive. At that time the patient was still intubated. She was blue. She was pulseless. The rhythm could not be established as the patient did not have the leads on her chest. Immediately, CPR was initiated and the patient was given 1 round of epinephrine and subsequently a dose of epinephrine for bradycardia. She received CPR for total of 2 to 3 minutes and subsequently ther e was return of spontaneous circulation and a blood pressure. The patient was kept intubated and patient got transferred to the intensive care unit. She is a morbidly obese female patient who weighs 100 on 144 kg and she has a body mass index of 56.2. I saw the patient in the endoscopy room and I also examined the patient in the ICU. The chest x-ray that was done showed cardiomegaly with mild pulm vessel congestion. He did she was in a good location. Inserted triple- lumen catheter and arterial line on this patient for blood pressure monitoring and hemodynamic support. At this point in time, the patient is normotensive. Blood gas showed a pH of 7.47 with a pCO2 of 35 and a pO2 of 316. This was on FiO2 of 100% with a PEEP of 5 and a total volume of 400 with a rate of 28. Morning c blood work showed a white cell count of 7.5 with a hemoglobin 8.2. Sodium was at 132, serum bicarb was at 23 with a BUN of 31 and a creatinine of 4.5. The patient also had a gamma GT of 331, AST of 80, ALT of 52, alkaline phosphatase of 506 and the patient's bilirubin was at 2.8. Lipase level was at 97. Note that the patient has end-stage renal disease on HD undergoes hemodialysis. The last hemodialysis session was yesterday with a total of 2 L of fluid removed. She also has hypertension, hypothyroidism, diabetes mellitus type 2 and the patient has been maintained on Humalog 22 units with meals and Lantus 23 units twice a day along with a sliding scale coverage. The patient has issues with chronic anemia. No history of any previous cardiac disease to my knowledge. A cardiac stress test was done preoperatively on 06/03/2023 showed no evidence of any reversible ischemia and the patient had an ejection fraction of 40%. Noted the patient surgery was done on 06/03/2023 and the patient underwent a laparoscopic cholecystectomy. Surgical wound site is dry clean and intact at this point in time. On today's evaluation of 06/08/2023, the patient remains intubated on mechanical ventilator. The patient is postcardiac arrest and this was a brief cardiopulmonary arrest as discussed earlier. This morning, the patient is adequately sedated propofol running at 30 mcg/kg/min. IV fluids are currently at KVO. She remains on mechanical ventilator, assist-control mode with rate of 28, tidal volume of 400, FiO2 of 40% with a PEEP of 5. Blood gas shows a pH of 7.52 with a pCO2 of 32 and pO2 of 68. The patient underwent a bout of hemodialysis yesterday with a total of 1 l of ultrafiltration and repeat chest x-ray from today is still showing worsening interstitial edema and the patient has a small right-sided pleural effusion and persistent left retrocardiac opacity consistent with pleural effusion. The patient is going to undergo another session of hemodialysis today. Hemodynamically, the patient is stable and she is on no pressors. IV fluids at KVO. No urine output. The blood work shows an obese, 7.9, hemoglobin is 8.3 and platelet count of 121. Sodium is at 132, BUN is at 37 with a creatinine of 5.7 and his sugar is at 140. Troponin from yesterday was 0.026. The patient remains on Rocephin and Flagyl. The patient is also on 32 units of Levemir insulin twice a day in addition to NovoLog sliding scale coverage. General surgery is on the case. Nephrology on the case. LFTs from today are still pending. On today's evaluation of 06/09/2023, the patient is still intubated on the mechanical ventilator. Chest x-ray still showing pulm edema and bilateral pl eural effusions. The patient underwent hemodialysis yesterday and a total of 4 L of fluid was removed. Making recommendations for another session of hemodialysis today. She remains on norepinephrine 0.04 mcg/kg/min. She is on propofol at 30 mcg/kg/h and she is arousable once of sedation. The patient is on IV fluids at KVO. No urine output. Low-dose norepinephrine is still running. NG tube is in place and output is minimal at this point in time. She is on assist-control mode of mechanical ventilation at rate of 28, tidal volume of 400, FiO2 of 35 % and PEEP of 5, and the blood gas from today shows a pH of 7.56 with a pCO2 of 29 and pO2 of 76. BUN is at 28 with a creatinine of 5.3 and a sodium levels at 133. The white cell count of 9 with a hemoglobin of 8.4 and a platelet count of 135. She is afebrile. Sputum sample is showing Marla albicans. On a separate note, the patient did have episodes of hypoglycemia. She was taken Levemir insulin and this will be placed on hold. She remains n.p.o. for now. Patient was seen today on 06/10/2023, remains intubated and mechanically ventilated. Patient is on assist-control rate of 16 tidal volume 400 FiO2 35% PEEP of 5 ABG showed a pO2 of 117 pCO2 38 pH of 7.40, hence no changes were made today. Vent settings remain the same. Patient is undergoing hemodialysis, still requiring pressors/norepinephrine at 0.09 mcg/kg/min still on propofol at 35 mcg/kg/min patient is receiving tube feeding. She is receiving hemodialysis today and this is scheduled for Saturday and Saturday. Looking back at the note, on 06/06, patient underwent ERCP, and she developed a cardiac arrest. Her initial admission date was on 05/29. When the patient had CPR, she was actually in pulseless electrical activity she did receive CPR epinephrine and atropine. Received CPR for anywhere between 2 to 3 minutes, and there was return of spontaneous circulation and the blood pressure. WBC count today is 9.3 hemoglobin is 8.4. Basic metabolic profile is normal bicarb is 18 BUN is 30, creatinine 6.49 chest x-ray is showing worsening infiltrates/pneumonia. Bilateral airspace disease. today on 06/11/2023, patient remains in the ICU, intubated and mechanically ventilated. Patient is on assist-control rate of 16 tidal volume 400 FiO2 35% PEEP of 5 ABG showed a pO2 of 109 pCO2 38 pH of 7.41 chest x-ray showed cardiomegaly, and bilateral pulmonary edema, underlying pneumonia is not entirely ruled out, patient is being dialyzed. BBC count is 9.6 hemoglobin 8.2 platelets are 115, basic metabolic profile is normal renal profile showed a BUN of 22 creatinine 5.16 total bilirubin is 2.4 alkaline phosphatase 575, sputum cultures positive for Marla species not albicans and not Marla glabrata patient is still on propofol, he is arousable, follows very simple instructions like closing eyes and squeezing hands. She is on propofol at 30 mcg/kg/min still requiring norepinephrine at 0.05 mcg/kg/min she is receiving enteral feeding at 30 cc/h. Antibiotics espino patient is on ceftriaxone and vancomycin Reevaluate today on 06/12/2023 patient remains ICU, I extubated the patient yesterday initially to BiPAP and now to nasal cannula at 2 L. Patient tolerated the extubation well, she is doing much better today she is awake, not in any distress, she is doing fairly well with incentive spirometry, she is not scheduled to have hemodialysis today but she will have 1 tomorrow. In the meantime the patient remains on antibiotics in the form of Flagyl vancomycin and Rocephin, speech therapy to evaluate for possible swallow evaluation, and again the plan is to transfer the patient to a medical surgical floor today. WBC count today is 7.6 hemoglobin is 7.5. Low potassium of 3.6 low sodium of 130 BUN is 20 creatinine 3.85, no chest x-ray was done on this patient today. Objective - Vital Signs Vital signs: Vital Signs Temp 97.6 F 06/12/23 04:00 Pulse 53 L 06/12/23 11:37 Resp 18 06/12/23 09:30 BP 108/42 06/12/23 09:00 Pulse Ox 96 06/12/23 09:30 FiO2 40 06/11/23 19:30 Intake & Output 06/11/23 06/12/23 06/12/23 18:59 06:59 18:59 Intake Total 1860.116 227.04 70 Output Total 2900 0 0 Balance -1039.884 227.04 70 Weight 149.7 kg Intake: IV 780 220 70 NS 0.9% KVO 80 120 20 Vancomycin 2,000 mg In 500 Sodium Chloride 0.9% 500 ml 500 ml @ 167 mls/hr IVPB ONCE ONE Rx#: [id number] cefTRIAXone 2 gm In 100 50 Sodium Chloride 0.9% 50 ml @ 100 mls/hr IVPB Q24HR [facility] Rx#:[id number] metroNIDAZOLE-NS PMX 500 100 100 mg In Saline 1 100ml.bag @ 100 mls/hr IVPB Q8HR [facility] Rx#:[id number] Intake, IV Titration 380.116 7.04 Amount Norepinephrine 4 mg In 271.764 7.04 Sodium Chloride 0.9% 250 ml @ 0.03 MCG/KG/MIN 16. 459 mls/hr IV .[id number] [facility] Rx#:[id number] propofoL 1,000 mg In 108.352 Empty Bag 1 bag @ 15 MCG/ KG/MIN 8.64 mls/hr IV . [id number] [facility] Rx#:[id number] Tube Feeding 300 Hemodialysis 400 Output: Urine 0 0 0 Hemodialysis 2900 ABP, PAP, CO, CI - Last Documented Arterial Blood Pressure 108/54 - Exam General Appearance: Reveals 68-year-old female, on nasal cannula, not in dist ress Neck HEENT: Supple, no lymphadenopathy, no thyroid enlargement, no carotid bruits. Lungs: Symmetrical chest expansion, Minich breath sounds at the bases no rhonchi no wheezes Chest Wall: No chest wall deformity, no tenderness. Heart: S1-S2, no S3 gallop. Murmur. Abdomen: Soft nontender no megaly no rebound, suspect small ascites. Extremities: 1+ bipedal edema. Pulses: Distal pulses bilaterally slightly diminished. Skin: Skin color, texture, tugor normal, no rashes or lesions. Neurologic: Awake alert and oriented x 3 no gross focal deficit Psychiatric: Alert oriented x 3, normal mood normal affect normal mental status examination. - Labs CBC & Chem 7: 06/12/23 03:50 06/12/23 03:50 Labs: Abnormal Lab Results - Last 24 Hours (Table) 06/11/23 06/11/23 06/11/23 Range/Units 04:23 13:53 15:56 RBC (3.80-5.40) m/uL Hgb (11.4-16.0) gm/dL Hct (34.0-46.0) % MCV (80.0-100.0) fL RDW (11.5-15.5) % Plt Count (150-450) k/uL ABG pH 7.47 H (7.35-7.45) ABG HCO3 28 H (21-25) mmol/L ABG Total CO2 29 H (19-24) mmol/L ABG O2 Saturation 98.4 H (94-97) % Sodium (137-145) mmol/L Chloride (98-107) mmol/L BUN (7-17) mg/dL Creatinine (0.52-1.04) mg/dL Glucose (74-99) mg/dL POC Glucose (mg/dL) 189 H (70-110) mg/dL Calcium (8.4-10.2) mg/dL Phosphorus 5.5 H (2.5-4.5) mg/dL Total Bilirubin (0.2-1.3) mg/dL AST (14-36) U/L Alkaline Phosphatase (38-126) U/L Total Protein (6.3-8.2) g/dL Albumin (3.5-5.0) g/dL 06/11/23 06/12/23 06/12/23 Range/Units 18:16 00:15 03:50 RBC 2.17 L (3.80-5.40) m/uL Hgb 7.5 L (11.4-16.0) gm/dL Hct 22.7 L (34.0-46.0) % MCV 104.7 H (80.0-100.0) fL RDW 17.3 H (11.5-15.5) % Plt Count 115 L (150-450) k/uL ABG pH (7.35-7.45) ABG HCO3 (21-25) mmol/L ABG Total CO2 (19-24) mmol/L ABG O2 Saturation (94-97) % Sodium (137-145) mmol/L Chloride (98-107) mmol/L BUN (7-17) mg/dL Creatinine (0.52-1.04) mg/dL Glucose (74-99) mg/dL POC Glucose (mg/dL) 197 H 161 H (70-110) mg/dL Calcium (8.4-10.2) mg/dL Phosphorus (2.5-4.5) mg/dL Total Bilirubin (0.2-1.3) mg/dL AST (14-36) U/L Alkaline Phosphatase (38-126) U/L Total Protein (6.3-8.2) g/dL Albumin (3.5-5.0) g/dL 06/12/23 06/12/23 Range/Units 03:50 06:06 RBC (3.80-5.40) m/uL Hgb (11.4-16.0) gm/dL Hct (34.0-46.0) % MCV (80.0-100.0) fL RDW (11.5-15.5) % Plt Count (150-450) k/uL ABG pH (7.35-7.45) ABG HCO3 (21-25) mmol/L ABG Total CO2 (19-24) mmol/L ABG O2 Saturation (94-97) % Sodium 130 L (137-145) mmol/L Chloride 96 L (98-107) mmol/L BUN 20 H (7-17) mg/dL Creatinine 3.85 H (0.52-1.04) mg/dL Glucose 135 H (74-99) mg/dL POC Glucose (mg/dL) 141 H (70-110) mg/dL Calcium 7.6 L (8.4-10.2) mg/dL Phosphorus (2.5-4.5) mg/dL Total Bilirubin 2.2 H (0.2-1.3) mg/dL AST 61 H (14-36) U/L Alkaline Phosphatase 546 H (38-126) U/L Total Protein 5.5 L (6.3-8.2) g/dL Albumin 2.1 L (3.5-5.0) g/dL Microbiology - Last 24 Hours (Table) 06/10/23 12:01 Gram Stain - Preliminary Arm - Right Wound Culture - Preliminary 06/10/23 12:55 Blood Culture - Preliminary Blood Assessment and Plan Assessment: Impression: Cardiac arrest/PEA status post 1 round of CPR for a total of 2 to 3 minutes Acute hypoxic respiratory failure secondary to above Fluid overload requiring hemodialysis with pulmonary edema and bilateral pleural effusions, patient is on hemodialysis Possible aspiration pneumonia Acute cholecystitis status postcholecystectomy done on 06/03/2023 Choledocholithiasis requiring ERCP done on 06/07/2023 with sphincterectomy and extraction of 3 small stone Morbid obesity Benign essential hypertension Type 2 diabetes, on Levemir and insulin and sliding scale History of hypothyroidism Abnormal liver enzymes secondary to choledocholithiasis possible cholangitis. End-stage renal disease on hemodialysis Anemia of chronic disease Recommendation: Patient was extubated yesterday and tolerated the extubation well Patient is on nasal cannula and will continue incentive spirometry Continue antibiotics Continue hemodialysis as felt necessary by nephrology on the case Assess for swallow evaluation and possibly resume diet as tolerated. Continue DuoNeb updrafts Continue GI and DVT prophylaxis/Lovenox and Protonix Continue Synthroid Consider transfer out of the ICU and early ambulation. Patient to go to 3 S. today\ Will continue to follow Time with Patient: Less than 30
[2023-06-12 12:53] LABS: Glucose,Whole Blood 170 mg/dL (70-110)
--- NOTE | 2023-06-12 15:06 | P.PN ---
Subjective Progress Note Date: 06/12/23 CHIEF COMPLAINT: Cholecystitis HISTORY OF PRESENT ILLNESS: Patient postop day #10 status post laparoscopic cholecystectomy. Patient status post ERCP with stone extraction. Patient had cardiac arrest after ERCP currently is in the ICU. Patient extubated yesterday afternoon. She did fail her swallow eval. Afebrile. WBC 7.6 Hgb 7.5 platelets 115 sodium is 130 potassium 3.6 total bili 2.2 AST 61 ALT 33 alk phos 546 PHYSICAL EXAM: VITAL SIGNS: Reviewed. GENERAL: no acute distress. ABDOMEN: Soft. Nondistended. Incision sites clean dry and intact ASSESSMENT: 1. Cholecystitis status post laparoscopic cholecystectomy 2. Choledocholithiasis status post ERCP with stone extraction. 3. Cardiac arrest PLAN: -Continue medical management -No signs of biliary duct obstruction. 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 Signing provider agrees with the documented findings, assessment, and plan of care. Objective - Vital Signs Vital signs: Vital Signs Temp 97.9 F 06/12/23 12:00 Pulse 51 L 06/12/23 12:00 Resp 16 06/12/23 12:00 BP 105/42 06/12/23 12:00 Pulse Ox 97 06/12/23 12:00 FiO2 40 06/11/23 19:30 Intake & Output 06/11/23 06/12/23 06/12/23 18:59 06:59 18:59 Intake Total 1860.116 227.04 70 Output Total 2900 0 0 Balance -1039.884 227.04 70 Weight 149.7 kg Intake: IV 780 220 70 NS 0.9% KVO 80 120 20 Vancomycin 2,000 mg In 500 Sodium Chloride 0.9% 500 ml 500 ml @ 167 mls/hr IVPB ONCE ONE Rx#: [id number] cefTRIAXone 2 gm In 100 50 Sodium Chloride 0.9% 50 ml @ 100 mls/hr IVPB Q24HR [facility] Rx#:[id number] metroNIDAZOLE-NS PMX 500 100 100 mg In Saline 1 100ml.bag @ 100 mls/hr IVPB Q8HR [facility] Rx#:[id number] Intake, IV Titration 380.116 7.04 Amount Norepinephrine 4 mg In 271.764 7.04 Sodium Chloride 0.9% 250 ml @ 0.03 MCG/KG/MIN 16. 459 mls/hr IV .[id number] [facility] Rx#:[id number] propofoL 1,000 mg In 108.352 Empty Bag 1 bag @ 15 MCG/ KG/MIN 8.64 mls/hr IV . [id number] [facility] Rx#:[id number] Tube Feeding 300 Hemodialysis 400 Output: Urine 0 0 0 Hemodialysis 2900 ABP, PAP, CO, CI - Last Documented Arterial Blood Pressure 108/54 - Labs CBC & Chem 7: 06/12/23 03:50 06/12/23 03:50 Labs: Abnormal Lab Results - Last 24 Hours (Table) 06/11/23 06/11/23 06/12/23 Range/Units 15:56 18:16 00:15 RBC (3.80-5.40) m/uL Hgb (11.4-16.0) gm/dL Hct (34.0-46.0) % MCV (80.0-100.0) fL RDW (11.5-15.5) % Plt Count (150-450) k/uL ABG pH 7.47 H (7.35-7.45) ABG HCO3 28 H (21-25) mmol/L ABG Total CO2 29 H (19-24) mmol/L ABG O2 Saturation 98.4 H (94-97) % Sodium (137-145) mmol/L Chloride (98-107) mmol/L BUN (7-17) mg/dL Creatinine (0.52-1.04) mg/dL Glucose (74-99) mg/dL POC Glucose (mg/dL) 197 H 161 H (70-110) mg/dL Calcium (8.4-10.2) mg/dL Total Bilirubin (0.2-1.3) mg/dL AST (14-36) U/L Alkaline Phosphatase (38-126) U/L Total Protein (6.3-8.2) g/dL Albumin (3.5-5.0) g/dL 06/12/23 06/12/23 06/12/23 Range/Units 03:50 03:50 06:06 RBC 2.17 L (3.80-5.40) m/uL Hgb 7.5 L (11.4-16.0) gm/dL Hct 22.7 L (34.0-46.0) % MCV 104.7 H (80.0-100.0) fL RDW 17.3 H (11.5-15.5) % Plt Count 115 L (150-450) k/uL ABG pH (7.35-7.45) ABG HCO3 (21-25) mmol/L ABG Total CO2 (19-24) mmol/L ABG O2 Saturation (94-97) % Sodium 130 L (137-145) mmol/L Chloride 96 L (98-107) mmol/L BUN 20 H (7-17) mg/dL Creatinine 3.85 H (0.52-1.04) mg/dL Glucose 135 H (74-99) mg/dL POC Glucose (mg/dL) 141 H (70-110) mg/dL Calcium 7.6 L (8.4-10.2) mg/dL Total Bilirubin 2.2 H (0.2-1.3) mg/dL AST 61 H (14-36) U/L Alkaline Phosphatase 546 H (38-126) U/L Total Protein 5.5 L (6.3-8.2) g/dL Albumin 2.1 L (3.5-5.0) g/dL 06/12/23 Range/Units 12:51 RBC (3.80-5.40) m/uL Hgb (11.4-16.0) gm/dL Hct (34.0-46.0) % MCV (80.0-100.0) fL RDW (11.5-15.5) % Plt Count (150-450) k/uL ABG pH (7.35-7.45) ABG HCO3 (21-25) mmol/L ABG Total CO2 (19-24) mmol/L ABG O2 Saturation (94-97) % Sodium (137-145) mmol/L Chloride (98-107) mmol/L BUN (7-17) mg/dL Creatinine (0.52-1.04) mg/dL Glucose (74-99) mg/dL POC Glucose (mg/dL) 170 H (70-110) mg/dL Calcium (8.4-10.2) mg/dL Total Bilirubin (0.2-1.3) mg/dL AST (14-36) U/L Alkaline Phosphatase (38-126) U/L Total Protein (6.3-8.2) g/dL Albumin (3.5-5.0) g/dL Microbiology - Last 24 Hours (Table) 06/10/23 12:01 Gram Stain - Preliminary Arm - Right Wound Culture - Preliminary 06/10/23 12:55 Blood Culture - Preliminary Blood
[2023-06-12] MEDS: bisacodyL 10 MG SUPP RECTAL STA (15:48)
--- NOTE | 2023-06-12 17:25 | P.PN ---
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 On today's visit that is 06/12/2023, the patient continues to be afebrile, the patient has been extubated and is on 2 L nasal cannula oxygen and breathing comfortably, the Pt denies having any chest pain or cough, the patient denies having any abdominal pain no vomiting or any diarrhea has been reported by the nursing staff. Patient white count is 7.6, creatinine 3.85 BUN/creatinine is 24.4 blood and local cultures currently pending Objective - Vital Signs Vital signs: Vital Signs Temp 97.9 F 06/12/23 12:00 Pulse 51 L 06/12/23 12:00 Resp 16 06/12/23 12:00 BP 105/42 06/12/23 12:00 Pulse Ox 97 06/12/23 12:00 FiO2 40 06/11/23 19:30 Intake & Output 06/11/23 06/12/23 06/12/23 18:59 06:59 18:59 Intake Total 1860.116 227.04 70 Output Total 2900 0 0 Balance -1039.884 227.04 70 Weight 149.7 kg Intake: IV 780 220 70 NS 0.9% KVO 80 120 20 Vancomycin 2,000 mg In 500 Sodium Chloride 0.9% 500 ml 500 ml @ 167 mls/hr IVPB ONCE ONE Rx#: [id number] cefTRIAXone 2 gm In 100 50 Sodium Chloride 0.9% 50 ml @ 100 mls/hr IVPB Q24HR [facility] Rx#:[id number] metroNIDAZOLE-NS PMX 500 100 100 mg In Saline 1 100ml.bag @ 100 mls/hr IVPB Q8HR [facility] Rx#:[id number] Intake, IV Titration 380.116 7.04 Amount Norepinephrine 4 mg In 271.764 7.04 Sodium Chloride 0.9% 250 ml @ 0.03 MCG/KG/MIN 16. 459 mls/hr IV .[id number] [facility] Rx#:[id number] propofoL 1,000 mg In 108.352 Empty Bag 1 bag @ 15 MCG/ KG/MIN 8.64 mls/hr IV . [id number] [facility] Rx#:[id number] Tube Feeding 300 Hemodialysis 400 Output: Urine 0 0 0 Hemodialysis 2900 ABP, PAP, CO, CI - Last Documented Arterial Blood Pressure 108/54 - Exam GENERAL DESCRIPTION: An elderly female lying in bed in no distress RESPIRATORY SYSTEM: Unlabored breathing , decreased breath sounds at bases HEART: S1 S2 regular rate and rhythm , ABDOMEN: Soft , no tenderness EXTREMITIES: Right upper extremity AV graft site with bruising some swelling no redness - Labs CBC & Chem 7: 06/12/23 03:50 06/12/23 03:50 Labs: Abnormal Lab Results - Last 24 Hours (Table) 06/11/23 06/11/23 06/12/23 Range/Units 15:56 18:16 00:15 RBC (3.80-5.40) m/uL Hgb (11.4-16.0) gm/dL Hct (34.0-46.0) % MCV (80.0-100.0) fL RDW (11.5-15.5) % Plt Count (150-450) k/uL ABG pH 7.47 H (7.35-7.45) ABG HCO3 28 H (21-25) mmol/L ABG Total CO2 29 H (19-24) mmol/L ABG O2 Saturation 98.4 H (94-97) % Sodium (137-145) mmol/L Chloride (98-107) mmol/L BUN (7-17) mg/dL Creatinine (0.52-1.04) mg/dL Glucose (74-99) mg/dL POC Glucose (mg/dL) 197 H 161 H (70-110) mg/dL Calcium (8.4-10.2) mg/dL Total Bilirubin (0.2-1.3) mg/dL AST (14-36) U/L Alkaline Phosphatase (38-126) U/L Total Protein (6.3-8.2) g/dL Albumin (3.5-5.0) g/dL 06/12/23 06/12/23 06/12/23 Range/Units 03:50 03:50 06:06 RBC 2.17 L (3.80-5.40) m/uL Hgb 7.5 L (11.4-16.0) gm/dL Hct 22.7 L (34.0-46.0) % MCV 104.7 H (80.0-100.0) fL RDW 17.3 H (11.5-15.5) % Plt Count 115 L (150-450) k/uL ABG pH (7.35-7.45) ABG HCO3 (21-25) mmol/L ABG Total CO2 (19-24) mmol/L ABG O2 Saturation (94-97) % Sodium 130 L (137-145) mmol/L Chloride 96 L (98-107) mmol/L BUN 20 H (7-17) mg/dL Creatinine 3.85 H (0.52-1.04) mg/dL Glucose 135 H (74-99) mg/dL POC Glucose (mg/dL) 141 H (70-110) mg/dL Calcium 7.6 L (8.4-10.2) mg/dL Total Bilirubin 2.2 H (0.2-1.3) mg/dL AST 61 H (14-36) U/L Alkaline Phosphatase 546 H (38-126) U/L Total Protein 5.5 L (6.3-8.2) g/dL Albumin 2.1 L (3.5-5.0) g/dL 06/12/23 Range/Units 12:51 RBC (3.80-5.40) m/uL Hgb (11.4-16.0) gm/dL Hct (34.0-46.0) % MCV (80.0-100.0) fL RDW (11.5-15.5) % Plt Count (150-450) k/uL ABG pH (7.35-7.45) ABG HCO3 (21-25) mmol/L ABG Total CO2 (19-24) mmol/L ABG O2 Saturation (94-97) % Sodium (137-145) mmol/L Chloride (98-107) mmol/L BUN (7-17) mg/dL Creatinine (0.52-1.04) mg/dL Glucose (74-99) mg/dL POC Glucose (mg/dL) 170 H (70-110) mg/dL Calcium (8.4-10.2) mg/dL Total Bilirubin (0.2-1.3) mg/dL AST (14-36) U/L Alkaline Phosphatase (38-126) U/L Total Protein (6.3-8.2) g/dL Albumin (3.5-5.0) g/dL Microbiology - Last 24 Hours (Table) 06/10/23 12:01 Gram Stain - Preliminary Arm - Right Wound Culture - Preliminary 06/10/23 12:55 Blood Culture - Preliminary Blood Assessment and Plan (1) Infection of AV graft for dialysis Current Visit: Yes Status: Acute Code(s): T82.7XXA - INFECT/INFLM REACT D/T OTH CARDI/VASC DEV/IMPLNT/GRFT, INIT SNOMED Code(s): 189006472 Plan: 1patient with a right upper extremity AV graft in this patient with a history of end-stage renal disease on dialysis admission to hospital abdominal pain status postcholecystectomy followed by ERCP with extraction of stones and did have a cardiac arrest admission to the ICU no concerning for drainage from the AV graft possible infection however the patient not running any fever no significant erythema was noticed and did have a normal white count. 2blood and local cultures obtained which are currently pending 3-patient is currently being treated with vancomycin while waiting for the cultures to be finalized and monitor clinical course closely Dictation was produced using [employer] dictation software. please excuse any grammatical, word or spelling errors. Time with Patient: Less than 30
[2023-06-12 17:44] LABS: Glucose,Whole Blood 150 mg/dL (70-110)
[2023-06-12] MEDS: POTASSIUM CHLORIDE ER 20 MEQ TAB.ER PO STA (17:50)
[2023-06-12] MEDS: POTASSIUM CHLORIDE 20 MEQ in WATER FOR INJECTION 1 100ML.BAG IVPB STA (17:57)
[2023-06-12 23:46] LABS: Glucose,Whole Blood 131 mg/dL (70-110)
--- NOTE | 2023-06-13 05:37 | P.PN ---
Subjective Progress Note Date: 06/12/23 HISTORY OF PRESENT ILLNESS: 68-year-old female 89 office patient who was hospitalized recently at [facility] for abscess and infected armpit area with slight recurrent abdominal discomfort with gallbladder dyskinesia at the time. Patient has end-stage renal disease on hemodialysis 3 times a week also has known to have type 2 diabetes, obstructive sleep apnea, hypertension, hyperlipidemia, hypothyroidism, she brought to the emergency department because of intractable nausea vomiting and diarrhea could not complete dialysis yesterday with worsening fever and chills with abdominal distention without any significant chest pain no bloody stool. Also had infiltrate her fistula which the reason why here hemodialysis was stopped early. With her current symptoms and the significant abnormal liver function test from her last hospitalization which patient was study in detail and found to have biliary hypokinesia via HIDA scan done last month. Patient liver function test this time came back with total bilirubin of 1.9 with AST of 414 and ALT 154 with alkaline phosphatase 224 also lipase of 315 with amylase of 49 which make the diagnosis of subacute pancreatitis as well. Also she continued to have significant anemia with hemoglobin of 8.1 platelet count 1 65, 000 patient creatinine was 6.5 with BUN of 39. Patient was seen and evaluated at the emergency department with above complaint COVID influenza and RSV were negative, CT of the abdomen and pelvis was performed again this time and showed no bowel obstruction with no acute finding identified to the amount of patient's symptoms of the pancreas visualized to be fine with small but prominent calcification on the gallbladder as a gallstone with no surrounding ill-defined fluid and fat stranding. Gallbladder ultrasound was performed again as well and showed hepatomegaly with heterogeneous hyper echoic appearance of the liver suggestive of diffuse fatty infiltrate with hepatocellular disease with no adjacent ascites, gallstones redemonstrated without ultrasound evidence of acute cholecystitis. Patient was hospitalized and consult at this point gastroenterology for her recurrent symptoms with nausea and vomiting to conclude the possibility of gallbladder and gallstone with abnormal liver function test. And also to help to make decision whether her gallbladder should be removed or not. Cardiology consultation for cardiology clearance which patient has no history of cardiac disease no change on her EKG at this point or any change in cardiac enzymes. Nephrology consultation was requested to continue hemodialysis. Also request consult of vascular for her fistula. 06/03/2023: Patient was evaluated through the weekend by cardiology, general surgery, nephrology. Was continued on hemodialysis, also continue on IV antibiotic with Rocephin and Flagyl due to slight concern of leukocytosis. 3 did not have any increased nausea or vomiting no diarrhea, liver function test still slightly bit elevated. Cardiology evaluated patient ordered an echocardiogram and and furthermore decided to do a nuclear stress test before clearing her for surgery. Nuclear stress test scheduled this morning if patient goes through with no problem she will be going for her cholecystectomy as an extent. 06/04/2023: Laboratory values showed slight increase in alkaline phosphatase along with total bilirubin make the possibility of having obstruction of the common bile with stone or other is much higher. Delay patient discharge at this point and should go for an MRCP initially if there is any finding consistent with stone or blockage of the common duct she might need to go for an ERCP to extract stone and stent the area. Will delay discharge till this is done and cleared in the meanwhile repeat labs again tomorrow. Patient hemodialysis days today which we will continue to do as an inpatient. 06/05/2023: Patient MRCP came back with several area of calcification in the common duct consistent with cholelithiasis. Patient will be seen gastroenterology for ERCP probably to extract the stone and probably do stent in the common duct. 06/06/2023: After finishing the MRCP and finding more calcification and possibly stone across the common duct patient liver enzymes continue to be elevated total bilirubin still at 2.8 right alk phos 541 AST 59 ALT 62, specially with the current findings will require to go for an ERCP and possible required to extract the stone and put a stent in the common duct. Apparently gastroenterology are planning to do this procedure on Saturday. Meanwhile patient is asymptomatic continue clear liquid diet and advance gradually and dialysis will be done today as well. 06/07/2023: Patient ended up going for her ERCP 3 stones were extracted through the procedure but shortly after procedure she coded and required resuscitation lasted for over a few minutes after giving her atropine patient pulse rate returned but she was intubated and transferred to the ICU at this point. Patient has been resting in the ICU after the current complication, family apparently were updated by gastroenterology along with validation specialist. Continue to do the complication currently patient is not conscious but resting comfortably i n the ICU. 06/08/2023: Patient remain in the ICU on mechanical ventilation, still on vasopressor, she will be going for dialysis today. Her level of responsiveness still limited. Labs today with hemoglobin is 8.3 liver function test were not done will add it to the lab done today. She is still seen pulmonary and cardiology she is still quite hypotensive with pulse rate is down remain on Levophed at this point try to keep her blood pressure systolic above 100. 06/09/2023: She is still intubated on mechanical ventilation she is fluid overload still on vasopressor that she is awake alert will be hopefully extubated tomorrow with her fluid overload will be on hemodialysis today which will help some. Her laboratory value with hemoglobin is 8.4 white blood cell 9.0 ABG still showing blood patient had quite with respiratory alkalosis. Also still required a smaller dose of vasopressor. Will initiate feeding via NG tube today. 06/10/2023: Patient remain in the ICU on mechanical ventilation and still on mild sedation on vasopressor with Levophed, she will be going on ultrafiltration on d ialysis today repeat another 1 tomorrow on backing off on sedation she is responding sound but she still require sedation at this point and she is not ready to be extubated yet. Pulmonary Dr. Anguiano keeping her on assist control rate of 16 with volume of 400 FiO2 of 35 percentile with PEEP of 5 still on propofol at 35 mcg/min still receiving tube feeding at testing today with hemoglobin 8.4 creatinine 6.49 chest x-ray showed worsening infiltrate/pneumonia bilateral space disease. Will continue antibiotics with Rocephin and Flagyl continue enteral feeding prior to advance it continue sedation at this point she is not ready to be extubated today. 06/11/2023: She is remain on mechanical ventilation on a smaller dose of vasopressor is having dialysis today blood pressure still dropping down around dialysis requiring midodrine pulmonary try to wean her off vasopressor and try to extubate. Sputum culture apparently was positive for candidiasis infectious disease and probably have her initiate fluconazole. Still trying to extubate the patient still having quite a bit of fluid overload at this point. Hemoglobin of 8.2 does not require any blood transfusion. She still been treated with wide spectrum antibiotic with Rocephin and vancomycin, still continuous enteral feeding as well. Mostly medication she was on orally with been done through the NG tube. 06/12/2023: She is much better she was extubated around 4:00 in the afternoon yesterday successfully she is going on dialysis today, patient might be able to leave the ICU, she is off vasopressors at this point, speech will evaluate patient and hopefully will initiate diet today. Her hypoxia is much better requiring nasal cannula 2 to 3 L only. Will continue antibiotics for now her central line in the groin area will be taking out patient will have probably PICC line by the end of the day today. Will consult on whether she will have her AV fistula infected or not there is no cyanosis erythema swelling or problem at this point blood culture still pending continue to see infectious disease, patient remain on vancomycin. REVIEW OF SYSTEMS: CONSTITUTIONAL: Sedated on mechanical ventilation.. EYES: No icterus sclerae, no conjunctivitis. EARS, NOSE, MOUTH, THROAT, and FACE: No sore throat, lymphadenopathy, carotid bruits or deformity. RESPIRATORY: Slight shortness of breath no cough or wheezes.. CARDIOVASCULAR: Positive PND orthopnea palpitation no angina.. GASTROINTESTINAL: Positive abdominal pain with nausea vomiting diarrhea no con stipation no acute gastrointestinal bleed no distention or masses.. GENITOURINARY: Decreased urine output she is on hemodialysis.. INTEGUMENT/BREAST: Negative for any muscular injury with mild osteoarthritis.. HEMATOLOGIC/LYMPHATIC: Chronic anemia and hematoma around the fistula graft.. MUSCULOSKELTAL: Negative for Myalgia or arthralgia. NEURLOGICAL: No LOC, Sz or syncope, blurred vision dizziness or abnormality.. BEHAVIORAL/PSYCH: Negative. ENDOCRINE: Negative. PHYSICAL EXAMINATION: General Appearance: Sedated on mechanical ventilation with the ET tube and NG tube are in.. Neck HEENT: Supple, no lymphadenopathy, no thyroid enlargement, no carotid bruits. Lungs: Positive fine rhonchi in the bases with crackles mostly limited area on the right side no wheezes. Chest Wall: Decreased expansion with deep inspiration no tenderness and no deformity was found on exam, no costochondral pain or discomfort. Heart: Regular rate and rhythm, S1, S2 normal, no murmur, rub or gallop. Back: Symmetric, no curvature, ROM normal, no CVA tenderness. Abdomen: Soft with slight tenderness in the mid epigastric and right upper quadrant area no rebound or rigidity slight hepatomegaly not able to feel any splenomegaly at this point and very limited amount of ascites. Extremities: Trace edema, her fistula graft in the left side has slight hematoma on the side. Pulses: 2+ and symmetric. Skin: Skin color, texture, tugor normal, no rashes or lesions. Neurologic: Alert oriented x3 cranial nerves II through XII intact, no motor deficit, no abnormal balance or gait. ASSESSMENT AND PLAN: _Postcardiac arrest not a clear etiology could be PEA or arrhythmia or could be aggravation from the ERCP specially with ascending cholangitis but still on Rocephin and Flagyl for. Also there were talk about possibility of her fistula graft being infected waiting for the final culture the meanwhile continue IV antibiotics. _Acute hypoxic respiratory failure: After mechanical ventilation pulse ox is doing much better she is on 2 to 3 L of nasal cannula. _Ventilator dependent respiratory failure: Extubated successfully yesterday. _End-stage renal disease: Continue dialysis almost on daily basis try to take the extra fluid the patient is still having mild hypotension require vasopressor and slight midodrine. _Infection with ascending cholangitis versus fistula graft: Had resolved so far even patient is still been treated with vancomycin and Rocephin for other infection which this could be aspiration pneumonia, culture still pending. _Obstructive common duct with gallstone post 3 stone extracted via ERCP along with sphincterectomy. _Acute on subacute pancreatitis now retrospectively This is a result of gallstone passed into the common duct and blocked the pancreatic duct causing pancreatitis. Fortunately pancreatitis is resolved at this point but continue to see more evidence of common duct stone. _Gallstone without any acute cholecystitis: With the possibility of possible common duct stone passing black the pancreatic duct causing subacute pancreatitis patient will remain on antibiotic for treating this? Of ascending cholangitis till infection is clear out till the gallbladder is out. Again after taking her gallbladder out doing an MRCP is showing some common duct stone. ERCP will be needed to extract the stone. _gallbladder dyskinesia with recurrent symptoms of gallstone: Post laparoscopic cholecystectomy successful except still have some stone in the common duct. _Elevated liver function test again following surgery: Post 3 stent removed with ERCP we will repeat liver function test again. _ Common duct stone: Just had 3 stone removed of the common duct via ERCP. _Hypertension: For patient to be maintained on medication was doing midodrine before now the blood pressure being low still on vasopressor with Levophed. _Hypothyroidism: Continue levothyroxine 225 mcg daily on Saturday the rest of the week is on 50 mcg. _Type 2 diabetes: Blood sugar has been low will hold off on long-acting insulin keep patient on Accu-Chek with sliding scale coverage only for the next 24 hours. _Chronic anemia: Iron deficiency from end-stage renal disease continue to watch hemoglobin and iron level continue Procrit. Complication: Patient is doing much better she is off ventilator and off vasop ressors this point, central line will be pulled might require PICC line for longer term IV antibiotics, still waiting for culture patient will be transfer out of the ICU start PT OT continue hemodialysis patient will probably require to go to SNF for the next 2 weeks. Inpatient rehab is another possibility. Objective - Vital Signs Vital signs: Vital Signs Temp 97.6 F 06/12/23 04:00 Pulse 55 L 06/12/23 06:00 Resp 21 06/12/23 06:00 BP 123/35 06/12/23 01:00 Pulse Ox 99 06/12/23 06:00 FiO2 40 06/11/23 19:30 Intake & Output 06/11/23 06/11/23 06/12/23 06:59 18:59 06:59 Intake Total 186.156 8981.116 227.04 Output Total 0 2900 0 Balance 975.791 -1039.884 227.04 Weight 143.9 kg 149.7 kg Intake: IV 110 780 220 NS 0.9% KVO 110 80 120 Vancomycin 2,000 mg In 500 Sodium Chloride 0.9% 500 ml 500 ml @ 167 mls/hr IVPB ONCE ONE Rx#: [id number] cefTRIAXone 2 gm In 100 Sodium Chloride 0.9% 50 ml @ 100 mls/hr IVPB Q24HR [facility] Rx#:[id number] metroNIDAZOLE-NS PMX 500 100 100 mg In Saline 1 100ml.bag @ 100 mls/hr IVPB Q8HR [facility] Rx#:[id number] Intake, IV Titration 445.791 380.116 7.04 Amount Norepinephrine 4 mg In 298.623 271.764 7.04 Sodium Chloride 0.9% 250 ml @ 0.03 MCG/KG/MIN 16. 459 mls/hr IV .[id number] [facility] Rx#:[id number] propofoL 1,000 mg In 147.168 108.352 Empty Bag 1 bag @ 15 MCG/ KG/MIN 8.64 mls/hr IV . [id number] [facility] Rx#:[id number] Tube Feeding 300 300 Hemodialysis 400 Other 120 Output: Urine 0 0 0 Hemodialysis 2900 ABP, PAP, CO, CI - Last Documented Arterial Blood Pressure 113/37 - Labs CBC & Chem 7: 06/12/23 03:50 06/12/23 03:50 Labs: Abnormal Lab Results - Last 24 Hours (Table) 06/11/23 06/11/23 06/11/23 Range/Units 04:23 06:46 13:53 RBC (3.80-5.40) m/uL Hgb (11.4-16.0) gm/dL Hct (34.0-46.0) % MCV (80.0-100.0) fL RDW (11.5-15.5) % Plt Count (150-450) k/uL ABG pH (7.35-7.45) ABG HCO3 (21-25) mmol/L ABG Total CO2 (19-24) mmol/L ABG O2 Saturation (94-97) % Sodium (137-145) mmol/L Chloride (98-107) mmol/L BUN (7-17) mg/dL Creatinine (0.52-1.04) mg/dL Glucose (74-99) mg/dL POC Glucose (mg/dL) 160 H 189 H (70-110) mg/dL Calcium (8.4-10.2) mg/dL Phosphorus 5.5 H (2.5-4.5) mg/dL Total Bilirubin (0.2-1.3) mg/dL AST (14-36) U/L Alkaline Phosphatase (38-126) U/L Total Protein (6.3-8.2) g/dL Albumin (3.5-5.0) g/dL 06/11/23 06/11/23 06/12/23 Range/Units 15:56 18:16 00:15 RBC (3.80-5.40) m/uL Hgb (11.4-16.0) gm/dL Hct (34.0-46.0) % MCV (80.0-100.0) fL RDW (11.5-15.5) % Plt Count (150-450) k/uL ABG pH 7.47 H (7.35-7.45) ABG HCO3 28 H (21-25) mmol/L ABG Total CO2 29 H (19-24) mmol/L ABG O2 Saturation 98.4 H (94-97) % Sodium (137-145) mmol/L Chloride (98-107) mmol/L BUN (7-17) mg/dL Creatinine (0.52-1.04) mg/dL Glucose (74-99) mg/dL POC Glucose (mg/dL) 197 H 161 H (70-110) mg/dL Calcium (8.4-10.2) mg/dL Phosphorus (2.5-4.5) mg/dL Total Bilirubin (0.2-1.3) mg/dL AST (14-36) U/L Alkaline Phosphatase (38-126) U/L Total Protein (6.3-8.2) g/dL Albumin (3.5-5.0) g/dL 06/12/23 06/12/23 06/12/23 Range/Units 03:50 03:50 06:06 RBC 2.17 L (3.80-5.40) m/uL Hgb 7.5 L (11.4-16.0) gm/dL Hct 22.7 L (34.0-46.0) % MCV 104.7 H (80.0-100.0) fL RDW 17.3 H (11.5-15.5) % Plt Count 115 L (150-450) k/uL ABG pH (7.35-7.45) ABG HCO3 (21-25) mmol/L ABG Total CO2 (19-24) mmol/L ABG O2 Saturation (94-97) % Sodium 130 L (137-145) mmol/L Chloride 96 L (98-107) mmol/L BUN 20 H (7-17) mg/dL Creatinine 3.85 H (0.52-1.04) mg/dL Glucose 135 H (74-99) mg/dL POC Glucose (mg/dL) 141 H (70-110) mg/dL Calcium 7.6 L (8.4-10.2) mg/dL Phosphorus (2.5-4.5) mg/dL Total Bilirubin 2.2 H (0.2-1.3) mg/dL AST 61 H (14-36) U/L Alkaline Phosphatase 546 H (38-126) U/L Total Protein 5.5 L (6.3-8.2) g/dL Albumin 2.1 L (3.5-5.0) g/dL Microbiology - Last 24 Hours (Table) 06/10/23 12:01 Gram Stain - Preliminary Arm - Right Wound Culture - Preliminary 06/10/23 12:55 Blood Culture - Preliminary Blood
[2023-06-13 06:23] LABS: Glucose,Whole Blood 147 mg/dL (70-110)
--- NOTE | 2023-06-13 08:03 | P.PN ---
Subjective Progress Note Date: 06/13/23 HISTORY OF PRESENT ILLNESS: 68-year-old female 89 office patient who was hospitalized recently at [facility] for abscess and infected armpit area with slight recurrent abdominal discomfort with gallbladder dyskinesia at the time. Patient has end-stage renal disease on hemodialysis 3 times a week also has known to have type 2 diabetes, obstructive sleep apnea, hypertension, hyperlipidemia, hypothyroidism, she brought to the emergency department because of intractable nausea vomiting and diarrhea could not complete dialysis yesterday with worsening fever and chills with abdominal distention without any significant chest pain no bloody stool. Also had infiltrate her fistula which the reason why here hemodialysis was stopped early. With her current symptoms and the significant abnormal liver function test from her last hospitalization which patient was study in detail and found to have biliary hypokinesia via HIDA scan done last month. Patient liver function test this time came back with total bilirubin of 1.9 with AST of 414 and ALT 154 with alkaline phosphatase 224 also lipase of 315 with amylase of 49 which make the diagnosis of subacute pancreatitis as well. Also she continued to have significant anemia with hemoglobin of 8.1 platelet count 1 65, 000 patient creatinine was 6.5 with BUN of 39. Patient was seen and evaluated at the emergency department with above complaint COVID influenza and RSV were negative, CT of the abdomen and pelvis was performed again this time and showed no bowel obstruction with no acute finding identified to the amount of patient's symptoms of the pancreas visualized to be fine with small but prominent calcification on the gallbladder as a gallstone with no surrounding ill-defined fluid and fat stranding. Gallbladder ultrasound was performed again as well and showed hepatomegaly with heterogeneous hyper echoic appearance of the liver suggestive of diffuse fatty infiltrate with hepatocellular disease with no adjacent ascites, gallstones redemonstrated without ultrasound evidence of acute cholecystitis. Patient was hospitalized and consult at this point gastroenterology for her recurrent symptoms with nausea and vomiting to conclude the possibility of gallbladder and gallstone with abnormal liver function test. And also to help to make decision whether her gallbladder should be removed or not. Cardiology consultation for cardiology clearance which patient has no history of cardiac disease no change on her EKG at this point or any change in cardiac enzymes. Nephrology consultation was requested to continue hemodialysis. Also request consult of vascular for her fistula. 06/03/2023: Patient was evaluated through the weekend by cardiology, general surgery, nephrology. Was continued on hemodialysis, also continue on IV antibiotic with Rocephin and Flagyl due to slight concern of leukocytosis. 3 did not have any increased nausea or vomiting no diarrhea, liver function test still slightly bit elevated. Cardiology evaluated patient ordered an echocardiogram and and furthermore decided to do a nuclear stress test before clearing her for surgery. Nuclear stress test scheduled this morning if patient goes through with no problem she will be going for her cholecystectomy as an extent. 06/04/2023: Laboratory values showed slight increase in alkaline phosphatase along with total bilirubin make the possibility of having obstruction of the common bile with stone or other is much higher. Delay patient discharge at this point and should go for an MRCP initially if there is any finding consistent with stone or blockage of the common duct she might need to go for an ERCP to extract stone and stent the area. Will delay discharge till this is done and cleared in the meanwhile repeat labs again tomorrow. Patient hemodialysis days today which we will continue to do as an inpatient. 06/05/2023: Patient MRCP came back with several area of calcification in the common duct consistent with cholelithiasis. Patient will be seen gastroenterology for ERCP probably to extract the stone and probably do stent in the common duct. 06/06/2023: After finishing the MRCP and finding more calcification and possibly stone across the common duct patient liver enzymes continue to be elevated total bilirubin still at 2.8 right alk phos 541 AST 59 ALT 62, specially with the current findings will require to go for an ERCP and possible required to extract the stone and put a stent in the common duct. Apparently gastroenterology are planning to do this procedure on Saturday. Meanwhile patient is asymptomatic continue clear liquid diet and advance gradually and dialysis will be done today as well. 06/07/2023: Patient ended up going for her ERCP 3 stones were extracted through the procedure but shortly after procedure she coded and required resuscitation lasted for over a few minutes after giving her atropine patient pulse rate returned but she was intubated and transferred to the ICU at this point. Patient has been resting in the ICU after the current complication, family apparently were updated by gastroenterology along with warning analyst. Continue to do the complication currently patient is not conscious but resting comfortably i n the ICU. 06/08/2023: Patient remain in the ICU on mechanical ventilation, still on vasopressor, she will be going for dialysis today. Her level of responsiveness still limited. Labs today with hemoglobin is 8.3 liver function test were not done will add it to the lab done today. She is still seen pulmonary and cardiology she is still quite hypotensive with pulse rate is down remain on Levophed at this point try to keep her blood pressure systolic above 100. 06/09/2023: She is still intubated on mechanical ventilation she is fluid overload still on vasopressor that she is awake alert will be hopefully extubated tomorrow with her fluid overload will be on hemodialysis today which will help some. Her laboratory value with hemoglobin is 8.4 white blood cell 9.0 ABG still showing blood patient had quite with respiratory alkalosis. Also still required a smaller dose of vasopressor. Will initiate feeding via NG tube today. 06/10/2023: Patient remain in the ICU on mechanical ventilation and still on mild sedation on vasopressor with Levophed, she will be going on ultrafiltration on d ialysis today repeat another 1 tomorrow on backing off on sedation she is responding sound but she still require sedation at this point and she is not ready to be extubated yet. Pulmonary Dr. Anguiano keeping her on assist control rate of 16 with volume of 400 FiO2 of 35 percentile with PEEP of 5 still on propofol at 35 mcg/min still receiving tube feeding at testing today with hemoglobin 8.4 creatinine 6.49 chest x-ray showed worsening infiltrate/pneumonia bilateral space disease. Will continue antibiotics with Rocephin and Flagyl continue enteral feeding prior to advance it continue sedation at this point she is not ready to be extubated today. 06/11/2023: She is remain on mechanical ventilation on a smaller dose of vasopressor is having dialysis today blood pressure still dropping down around dialysis requiring midodrine pulmonary try to wean her off vasopressor and try to extubate. Sputum culture apparently was positive for candidiasis infectious disease and probably have her initiate fluconazole. Still trying to extubate the patient still having quite a bit of fluid overload at this point. Hemoglobin of 8.2 does not require any blood transfusion. She still been treated with wide spectrum antibiotic with Rocephin and vancomycin, still continuous enteral feeding as well. Mostly medication she was on orally with been done through the NG tube. 06/12/2023: She is much better she was extubated around 4:00 in the afternoon yesterday successfully she is going on dialysis today, patient might be able to leave the ICU, she is off vasopressors at this point, speech will evaluate patient and hopefully will initiate diet today. Her hypoxia is much better requiring nasal cannula 2 to 3 L only. Will continue antibiotics for now her central line in the groin area will be taking out patient will have probably PICC line by the end of the day today. Will consult on whether she will have her AV fistula infected or not there is no cyanosis erythema swelling or problem at this point blood culture still pending continue to see infectious disease, patient remain on vancomycin. 06/13/2023: Patient is out of the ICU has been doing well she is on 2 to 3 L of O2 to keep pulse ox above 90 percentile, she becomes slightly bit bradycardic with pulse rate running in the 50s, EKG done today she is not on any suppressive agent for beta-mark at this point. Continue to have severe debility with generalized weakness. Patient be doing dialysis today, continue IV antibiotic she will be having PICC line today her central line from the right groin area was taking out before she left the ICU yesterday. Reactivate PT and OT today and request social service liaison to check into patient's status to see if she is in need any help when she is ready to leave the hospital including having to go to inpatient rehab or SNF versus home with home care. REVIEW OF SYSTEMS: CONSTITUTIONAL: Sedated on mechanical ventilation.. EYES: No icterus sclerae, no conjunctivitis. EARS, NOSE, MOUTH, THROAT, and FACE: No sore throat, lymphadenopathy, carotid bruits or deformity. RESPIRATORY: Slight shortness of breath no cough or wheezes.. CARDIOVASCULAR: Positive PND orthopnea palpitation no angina.. GASTROINTESTINAL: Positive abdominal pain with nausea vomiting diarrhea no constipation no acute gastrointestinal bleed no distention or masses.. GENITOURINARY: Decreased urine output she is on hemodialysis.. INTEGUMENT/BREAST: Negative for any muscular injury with mild osteoarthritis.. HEMATOLOGIC/LYMPHATIC: Chronic anemia and hematoma around the fistula graft.. MUSCULOSKELTAL: Negative for Myalgia or arthralgia. NEURLOGICAL: No LOC, Sz or syncope, blurred vision dizziness or abnormality.. BEHAVIORAL/PSYCH: Negative. ENDOCRINE: Negative. PHYSICAL EXAMINATION: General Appearance: Sedated on mechanical ventilation with the ET tube and NG tube are in.. Neck HEENT: Supple, no lymphadenopathy, no thyroid enlargement, no carotid bruits. Lungs: Positive fine rhonchi in the bases with crackles mostly limited area on the right side no wheezes. Chest Wall: Decreased expansion with deep inspiration no tenderness and no deformity was found on exam, no costochondral pain or discomfort. Heart: Regular rate and rhythm, S1, S2 normal, no murmur, rub or gallop. Back: Symmetric, no curvature, ROM normal, no CVA tenderness. Abdomen: Soft with slight tenderness in the mid epigastric and right upper quadrant area no rebound or rigidity slight hepatomegaly not able to feel any splenomegaly at this point and very limited amount of ascites. Extremities: Trace edema, her fistula graft in the left side has slight hematoma on the side. Pulses: 2+ and symmetric. Skin: Skin color, texture, tugor normal, no rashes or lesions. Neurologic: Alert oriented x3 cranial nerves II through XII intact, no motor deficit, no abnormal balance or gait. ASSESSMENT AND PLAN: _Postcardiac arrest not a clear etiology could be PEA or arrhythmia or could be aggravation from the ERCP specially with ascending cholangitis but still on Rocephin and Flagyl for. Also there were talk about possibility of her fistula graft being infected waiting for the final culture the meanwhile continue IV antibiotics. _Acute hypoxic respiratory failure: After mechanical ventilation pulse ox is doing much better she is on 2 to 3 L of nasal cannula. _Ventilator dependent respiratory failure: Extubated successfully yesterday. _Bradycardia: No obvious reason at this point she is not on any beta-mark thyroid will be retested again she was doing thyroid medication through the IV while she was in the ICU will check her EKG today she is still seeing cardiology. _End-stage renal disease: Continue dialysis almost on daily basis try to take the extra fluid the patient is still having mild hypotension require vasopressor and slight midodrine. _Infection with ascending cholangitis versus fistula graft: Had resolved so far even patient is still been treated with vancomycin and Rocephin for other infection which this could be aspiration pneumonia, culture still pending. _Obstructive common duct with gallstone post 3 stone extracted via ERCP along with sphincterectomy. _Acute on subacute pancreatitis now retrospectively This is a result of gallstone passed into the common duct and blocked the pancreatic duct causing pancreatitis. Fortunately pancreatitis is resolved at this point but continue to see more evidence of common duct stone. _Gallstone without any acute cholecystitis: With the possibility of possible common duct stone passing black the pancreatic duct causing subacute pancreatitis patient will remain on antibiotic for treating this? Of ascending cholangitis till infection is clear out till the gallbladder is out. Again after taking her gallbladder out doing an MRCP is showing some common duct stone. ERCP will be needed to extract the stone. _gallbladder dyskinesia with recurrent symptoms of gallstone: Post laparoscopic cholecystectomy successful except still have some stone in the common duct. _Elevated liver function test again following surgery: Post 3 stent removed with ERCP we will repeat liver function test again. _ Common duct stone: Just had 3 stone removed of the common duct via ERCP. _Hypertension: For patient to be maintained on medication was doing midodrine before now the blood pressure being low still on vasopressor with Levophed. _Hypothyroidism: Continue levothyroxine 225 mcg daily on Saturday the rest of the week is on 50 mcg. _Type 2 diabetes: Blood sugar has been low will hold off on long-acting insulin keep patient on Accu-Chek with sliding scale coverage only for the next 24 hours. _Chronic anemia: Iron deficiency from end-stage renal disease continue to watch hemoglobin and iron level continue Procrit. Prognosis: Much better and still at this point. Discharge planning: Patient probably within the hospital again next 48 hours, continue PT OT and continue help with social service liaison to see if she need to go to rehab or home with home care. Objective - Vital Signs Vital signs: Vital Signs Temp 97.3 F L 06/12/23 23:10 Pulse 51 L 06/13/23 04:00 Resp 18 06/13/23 04:00 BP 113/65 06/13/23 04:00 Pulse Ox 96 06/13/23 04:00 FiO2 40 06/11/23 19:30 Intake & Output 06/12/23 06/12/23 06/13/23 06:59 18:59 06:59 Intake Total 227.04 170 Output Total 0 0 Balance 227.04 170 Weight 149.7 kg 144.5 kg Intake: IV 220 170 NS 0.9% KVO 120 20 cefTRIAXone 2 gm In 50 Sodium Chloride 0.9% 50 ml @ 100 mls/hr IVPB Q24HR [facility] Rx#:[id number] metroNIDAZOLE-NS PMX 500 100 100 mg In Saline 1 100ml.bag @ 100 mls/hr IVPB Q8HR [facility] Rx#:[id number] Intake, IV Titration 7.04 Amount Norepinephrine 4 mg In 7.04 Sodium Chloride 0.9% 250 ml @ 0.03 MCG/KG/MIN 16. 459 mls/hr IV .[id number] [facility] Rx#:[id number] Output: Urine 0 0 ABP, PAP, CO, CI - Last Documented Arterial Blood Pressure 108/54 - Labs CBC & Chem 7: 06/12/23 03:50 06/12/23 03:50 Labs: Abnormal Lab Results - Last 24 Hours (Table) 06/12/23 06/12/23 06/12/23 Range/Units 06:06 12:51 17:43 POC Glucose (mg/dL) 141 H 170 H 150 H (70-110) mg/dL 06/12/23 Range/Units 23:40 POC Glucose (mg/dL) 131 H (70-110) mg/dL Microbiology - Last 24 Hours (Table) 06/10/23 12:01 Anaerobic Culture - Preliminary Arm - Right 06/11/23 13:15 Blood Culture - Preliminary Blood 06/10/23 12:55 Blood Culture - Preliminary Blood 06/10/23 12:01 Gram Stain - Final Arm - Right Wound Culture - Final
[2023-06-13] MEDS: LIDOCAINE 1% INJ 10MG/ML (20 ML MDV) SQ ONE (08:30)
--- NOTE | 2023-06-13 09:20 | P.OP ---
Date of Procedure: 06/13/23 Description of Procedure: Date of Procedure: 06/13/2023 Preoperative Diagnosis: Need for long-term IV antibiotic access, IV access. Postoperative Diagnosis: Same. Procedure(s) Performed: Ultrasound-guided cannulation left basilic vein. Insertion of peripherally inserted central catheter under fluoroscopic guidance. Anesthesia: local (1% Xylocaine.) Surgeon: Gustavo Estimated Blood Loss (ml): 5 IV fluids (ml): 0 Urine output (ml): 0 Pathology: none sent Condition: stable Disposition: no change Indications for Procedure: Patient is a patient will require long-term IV antibiotics as an outpatient patient is offered a PICC line to allow for intravenous administration of antibiotics. Description of Procedure: Patient was brought to the special procedure suite. The left upper extremity sterilely prepped and draped in usual manner. Ultrasound was utilized to identify the basilic vein which was normally compressible free of visible thrombus. Permenant image was stored. 1% Xylocaine was utilized for local anesthesia tissues overlying the vein. Through this anesthetized area and with the aid of ultrasound a micropuncture needle was utilized to cannulate the vein. Once cannulated, Softip guidewire was advanced into the vein. The needle was withdrawn and a micropuncture sheath and dilator advanced over the guidewire. The guidewire was withdrawn and exchanged for the PICC guidewire and measured 52 cm to the cavoatrial junction. The catheter was cut to size and advanced into the cavoatrial junction without resistance. The sheath was peeled away. Blood was easily withdrawn through the catheter and the catheter was then flushed with heparinized saline solution and secured to the skin. Patient tolerated procedure well and was returned to their room in satisfactory and stable condition.
--- NOTE | 2023-06-13 09:32 | IR ---
EXAMINATION TYPE: IR cvc insert >=5 years DATE OF EXAM: 06/13/2023 COMPARISON: NONE HISTORY: Fluoroscopy time. Fluoroscopy was provided to the referring clinician.
[2023-06-13 10:20] LABS: Anisocytosis Slight; Basophils % (A) 1 %; Eosinophils # (A) 0.2 k/uL (0-0.7); Eosinophils % (A) 3 %; HCT 24.6 % (34.0-46.0); HGB 7.8 gm/dL (11.4-16.0); Hypochromasia Slight; Lymphocytes % (A) 16 %; MCH 34.4 pg (25.0-35.0); MCHC 31.9 g/dL (31.0-37.0); MCV 107.8 fL (80.0-100.0); Macrocytosis Marked; Mean Platelet Volume 10.3; Monocytes # (A) 0.3 k/uL (0-1.0); Monocytes % (A) 5 %; Neutrophils # (A) 4.8 k/uL (1.3-7.7); Neutrophils % (A) 73 %; Platelet Count 149 k/uL (150-450); RBC 2.28 m/uL (3.80-5.40); RDW 17.4 % (11.5-15.5); WBC 6.5 k/uL (3.8-10.6)
[2023-06-13 10:35] LABS: ALT 37 U/L (4-34); AST 62 U/L (14-36); African American GFR (CKD) 9 (>60 ml/min/1.73 sqM); Albumin 2.5 g/dL (3.5-5.0); Alkaline Phosphatase 577 U/L (38-126); Anion Gap 15 mmol/L; Blood Urea Nitrogen 29 mg/dL (7-17); Calcium 8.4 mg/dL (8.4-10.2); Carbon Dioxide 20 mmol/L (22-30); Chloride 95 mmol/L (98-107); Glucose 143 mg/dL (74-99); Non-African American GFR(CKD) 7 (>60 ml/min/1.73 sqM); Potassium 4.1 mmol/L (3.5-5.1); Sodium 130 mmol/L (137-145); Total Bilirubin 2.1 mg/dL (0.2-1.3); Total Protein 6.1 g/dL (6.3-8.2)
--- NOTE | 2023-06-13 11:03 | P.PN ---
Subjective Patient is seen in follow-up for end-stage renal disease. She is maintained on hemodialysis on Saturday schedule. Tolerating dialysis well. On nasal cannula. Denies chest pain or shortness of breath. Vital signs are stable. General: Resting in bed. HEENT: On nasal cannula. LUNGS: No audible rhonchi or wheezes. HEART: Rate and Rhythm are regular. ABDOMEN: Obese, no distention. EXTREMITITES: Trace edema. Objective - Vital Signs Vital signs: Vital Signs Temp 98.4 F 06/13/23 07:40 Pulse 67 06/13/23 09:28 Resp 18 06/13/23 08:00 BP 123/55 06/13/23 07:40 Pulse Ox 94 L 06/13/23 09:17 FiO2 40 06/11/23 19:30 Intake & Output 06/12/23 06/13/23 06/13/23 18:59 06:59 18:59 Intake Total 170 Output Total 0 0 Balance 170 0 Weight 144.5 kg Intake: IV 170 NS 0.9% KVO 20 cefTRIAXone 2 gm In 50 Sodium Chloride 0.9% 50 ml @ 100 mls/hr IVPB Q24HR [facility] Rx#:[id number] metroNIDAZOLE-NS PMX 500 100 mg In Saline 1 100ml.bag @ 100 mls/hr IVPB Q8HR [facility] Rx#:[id number] Output: Urine 0 0 Other: Voiding Method Toilet ABP, PAP, CO, CI - Last Documented Arterial Blood Pressure 108/54 - Labs CBC & Chem 7: 06/13/23 08:55 06/13/23 09:23 Labs: Abnormal Lab Results - Last 24 Hours (Table) 06/12/23 06/12/23 06/12/23 Range/Units 12:51 17:43 23:40 RBC (3.80-5.40) m/uL Hgb (11.4-16.0) gm/dL Hct (34.0-46.0) % MCV (80.0-100.0) fL RDW (11.5-15.5) % Plt Count (150-450) k/uL Macrocytosis Sodium (137-145) mmol/L Chloride (98-107) mmol/L Carbon Dioxide (22-30) mmol/L BUN (7-17) mg/dL Creatinine (0.52-1.04) mg/dL Glucose (74-99) mg/dL POC Glucose (mg/dL) 170 H 150 H 131 H (70-110) mg/dL Total Bilirubin (0.2-1.3) mg/dL AST (14-36) U/L ALT (4-34) U/L Alkaline Phosphatase (38-126) U/L Total Protein (6.3-8.2) g/dL Albumin (3.5-5.0) g/dL 06/13/23 06/13/23 06/13/23 Range/Units 06:21 08:55 09:23 RBC 2.28 L (3.80-5.40) m/uL Hgb 7.8 L (11.4-16.0) gm/dL Hct 24.6 L (34.0-46.0) % MCV 107.8 H (80.0-100.0) fL RDW 17.4 H (11.5-15.5) % Plt Count 149 L (150-450) k/uL Macrocytosis Marked A Sodium 130 L (137-145) mmol/L Chloride 95 L (98-107) mmol/L Carbon Dioxide 20 L (22-30) mmol/L BUN 29 H (7-17) mg/dL Creatinine 5.44 H (0.52-1.04) mg/dL Glucose 143 H (74-99) mg/dL POC Glucose (mg/dL) 147 H (70-110) mg/dL Total Bilirubin 2.1 H (0.2-1.3) mg/dL AST 62 H (14-36) U/L ALT 37 H (4-34) U/L Alkaline Phosphatase 577 H (38-126) U/L Total Protein 6.1 L (6.3-8.2) g/dL Albumin 2.5 L (3.5-5.0) g/dL Microbiology - Last 24 Hours (Table) 06/10/23 12:01 Anaerobic Culture - Preliminary Arm - Right 06/11/23 13:15 Blood Culture - Preliminary Blood 06/10/23 12:55 Blood Culture - Preliminary Blood 06/10/23 12:01 Gram Stain - Final Arm - Right Wound Culture - Final Assessment and Plan Plan: Assessment: 1. End-stage renal disease maintained on hemodialysis on Saturday schedule via AV graft. 2. Infiltrated AV graft. Seen by vascular surgery. Now being used. 3. Nausea and vomiting. CT showed no acute process. Status post laparoscopic cholecystectomy this admission. Also underwent ERCP with 3 small stones extracted. 4. Volume overload. Improving with ultrafiltration. 5. Hypotension maintained on midodrine. Off vasopressors. 6. Diabetes mellitus. 7. Chronic kidney disease mineral bone disease maintained on Renvela. Phosphorus level 5.5 dated June 11, 2023. 8. Anemia of chronic kidney disease. On Aranesp. 9. Status postcardiac arrest. 10. Hypokalemia from poor intake. Improved. 11. Metabolic acidosis secondary to chronic kidney disease. Expect improvement postdialysis. 12. Hyponatremia secondary to chronic kidney disease. Hypervolemic. Stable. Plan: Currently seen while undergoing hemodialysis. Maintain midodrine. Hold for systolic blood pressure greater than 110.
[2023-06-13 11:05] LABS: Vancomycin,Random 22.7 ug/mL
[2023-06-13 11:59] LABS: Stomatocytes Present
[2023-06-13 12:04] LABS: Glucose,Whole Blood 117 mg/dL (70-110)
--- NOTE | 2023-06-13 12:37 | P.PN ---
Progress Note - Text Progress Note Date: 06/13/23 Patient remains stable. She is status post laparoscopic ostectomy and subsequent ERCP for retained common bile duct stone. Her abdomen is soft. Patient continues of multiple medical issues. No surgical attention is planned. We will sign off.
[2023-06-13 14:52] VITALS: BMI 56.4
--- NOTE | 2023-06-13 15:48 | P.PN ---
Subjective Progress Note Date: 06/13/23 Principal diagnosis: Reason for follow-up is possible right upper extremity AV graft infection Patient is a 68-year-old female with multiple comorbidity initially presented to the hospital with nausea vomiting diagnosed with cholecystitis status post laparoscopic ostectomy followed by ERCP sphincterotomy and balloon stone extraction did have a cardiac arrest requiring elicitation and subsequent admission to ICU patient did have a history of renal failure on dialysis through the right upper extremity AV graft and noted to have some drainage prompting this consultation. On today's visit that is 06/13/2023, Patient is afebrile patient is currently on 2 L nasal cannula oxygen and denies having any shortness of breath, the patient denies any chest pain or cough, the patient denies any nausea vomiting did not have any abdominal pain and no diarrhea. Denies any worsening pain to the right upper arm AV fistula site and no drainage reported by the utility locate technician. Patient white count is 6.5 creatinine is 5.44 Vanco trough is 22.7 cultures so far pending Objective - Vital Signs Vital signs: Vital Signs Temp 98.2 F 06/13/23 12:18 Pulse 54 L 06/13/23 15:17 Resp 18 06/13/23 12:18 BP 104/50 06/13/23 12:18 Pulse Ox 94 L 06/13/23 09:17 FiO2 40 06/11/23 19:30 Intake & Output 06/12/23 06/13/23 06/13/23 18:59 06:59 18:59 Intake Total 170 400 Output Total 0 0 2900 Balance 170 0 -2500 Weight 144.5 kg 144.5 kg Intake: IV 170 NS 0.9% KVO 20 cefTRIAXone 2 gm In 50 Sodium Chloride 0.9% 50 ml @ 100 mls/hr IVPB Q24HR [facility] Rx#:[id number] metroNIDAZOLE-NS PMX 500 100 mg In Saline 1 100ml.bag @ 100 mls/hr IVPB Q8HR [facility] Rx#:[id number] Hemodialysis 400 Output: Urine 0 0 Hemodialysis 2900 Other: Voiding Method Toilet ABP, PAP, CO, CI - Last Documented Arterial Blood Pressure 108/54 - Exam GENERAL DESCRIPTION: An elderly female lying in bed in no distress RESPIRATORY SYSTEM: Unlabored breathing , decreased breath sounds at bases HEART: S1 S2 regular rate and rhythm , ABDOMEN: Soft , no tenderness EXTREMITIES: Right upper extremity AV graft site with bruising some swelling no redness - Labs CBC & Chem 7: 06/13/23 08:55 06/13/23 09:23 Labs: Abnormal Lab Results - Last 24 Hours (Table) 06/12/23 06/12/23 06/13/23 Range/Units 17:43 23:40 06:21 RBC (3.80-5.40) m/uL Hgb (11.4-16.0) gm/dL Hct (34.0-46.0) % MCV (80.0-100.0) fL RDW (11.5-15.5) % Plt Count (150-450) k/uL Macrocytosis Sodium (137-145) mmol/L Chloride (98-107) mmol/L Carbon Dioxide (22-30) mmol/L BUN (7-17) mg/dL Creatinine (0.52-1.04) mg/dL Glucose (74-99) mg/dL POC Glucose (mg/dL) 150 H 131 H 147 H (70-110) mg/dL Total Bilirubin (0.2-1.3) mg/dL AST (14-36) U/L ALT (4-34) U/L Alkaline Phosphatase (38-126) U/L Total Protein (6.3-8.2) g/dL Albumin (3.5-5.0) g/dL 06/13/23 06/13/23 06/13/23 Range/Units 08:55 09:23 12:03 RBC 2.28 L (3.80-5.40) m/uL Hgb 7.8 L (11.4-16.0) gm/dL Hct 24.6 L (34.0-46.0) % MCV 107.8 H (80.0-100.0) fL RDW 17.4 H (11.5-15.5) % Plt Count 149 L (150-450) k/uL Macrocytosis Marked A Sodium 130 L (137-145) mmol/L Chloride 95 L (98-107) mmol/L Carbon Dioxide 20 L (22-30) mmol/L BUN 29 H (7-17) mg/dL Creatinine 5.44 H (0.52-1.04) mg/dL Glucose 143 H (74-99) mg/dL POC Glucose (mg/dL) 117 H (70-110) mg/dL Total Bilirubin 2.1 H (0.2-1.3) mg/dL AST 62 H (14-36) U/L ALT 37 H (4-34) U/L Alkaline Phosphatase 577 H (38-126) U/L Total Protein 6.1 L (6.3-8.2) g/dL Albumin 2.5 L (3.5-5.0) g/dL Microbiology - Last 24 Hours (Table) 06/10/23 12:01 Anaerobic Culture - Preliminary Arm - Right 06/11/23 13:15 Blood Culture - Preliminary Blood 06/10/23 12:55 Blood Culture - Preliminary Blood 06/10/23 12:01 Gram Stain - Final Arm - Right Wound Culture - Final Assessment and Plan (1) Infection of AV graft for dialysis Current Visit: Yes Status: Acute Code(s): T82.7XXA - INFECT/INFLM REACT D/T OTH CARDI/VASC DEV/IMPLNT/GRFT, INIT SNOMED Code(s): 431398204 Plan: 1patient with a right upper extremity AV graft in this patient with a history of end-stage renal disease on dialysis admission to hospital abdominal pain status postcholecystectomy followed by ERCP with extraction of stones and did have a cardiac arrest admission to the ICU no concerning for drainage from the AV graft possible infection however the patient not running any fever no si gnificant erythema was noticed and did have a normal white count. 2blood and local cultures obtained which are currently pending 3-patient to continue with vancomycin however if the culture remains to be negative recommend to schedule vancomycin not planning for any IV antibiotic on discharge at this point Dictation was produced using [email or web address] dictation software. please excuse any grammatical, word or spelling errors. Time with Patient: Less than 30
--- NOTE | 2023-06-13 16:06 | P.PN ---
Subjective Progress Note Date: 06/13/23 This is a 68-year-old female patient was seen in the endoscopy room as the patient was undergoing an ERCP for choledocholithiasis patient also underwent biliary sphincterectomy and balloon extraction of a total of 3 small stones. Noted the patient presented to the hospital approximately a week ago for ep igastric pain along with nausea and vomiting and subsequently patient was found to have elevated and in the bilirubin and transaminitis. CAT scan of the abdomen pelvis showed gallstones and the patient underwent a cholecystectomy approximately 2 days ago. The patient continues to have issues with pain and elevation in LFTs. Based on that, the patient underwent an ERCP today. Note that following the procedure, the patient was being flipped around and end-tidal CO2 was found to be extremely low and subsequently the patient was found to be unresponsive. At that time the patient was still intubated. She was blue. She was pulseless. The rhythm could not be established as the patient did not have the leads on her chest. Immediately, CPR was initiated and the patient was given 1 round of epinephrine and subsequently a dose of epinephrine for bradycardia. She received CPR for total of 2 to 3 minutes and subsequently there was return of spontaneous circulation and a blood pressure. The patient was kept intubated and patient got transferred to the intensive care unit. She is a morbidly obese female patient who weighs 100 on 144 kg and she has a body mass index of 56.2. I saw the patient in the endoscopy room and I also examined the patient in the ICU. The chest x-ray that was done showed cardiomegaly with mild pulm vessel congestion. He did she was in a good location. Inserted triple-lumen catheter and arterial line on this patient for blood pressure monitoring and hemodynamic support. At this point in time, the patient is normotensive. Blood gas showed a pH of 7.47 with a pCO2 of 35 and a pO2 of 316. This was on FiO2 of 100% with a PEEP of 5 and a total volume of 400 with a rate of 28. Morning c blood work showed a white cell count of 7.5 with a hemoglobin 8.2. Sodium was at 132, serum bicarb was at 23 with a BUN of 31 and a creatinine of 4.5. The patient also had a gamma GT of 331, AST of 80, ALT of 52, alkaline phosphatase of 506 and the patient's bilirubin was at 2.8. Lipase level was at 97. Note that the patient has end-stage renal disease on HD undergoes hemodialysis. The last hemodialysis session was yesterday with a total of 2 L of fluid removed. She also has hypertension, hypothyroidism, diabetes mellitus type 2 and the patient has been maintained on Humalog 22 units with meals and Lantus 23 units twice a day along with a sliding scale coverage. The patient has issues with chronic anemia. No history of any previous cardiac disease to my knowledge. A cardiac stress test was done preoperatively on 06/03/2023 showed no evidence of any reversible ischemia and the patient had an ejection fraction of 40%. Noted the patient surgery was done on 06/03/2023 and the patient underwent a laparoscopic cholecystectomy. Surgical wound site is dry clean and intact at this point in time. On today's evaluation of 06/08/2023, the patient remains intubated on mechanical ventilator. The patient is postcardiac arrest and this was a brief c ardiopulmonary arrest as discussed earlier. This morning, the patient is adequately sedated propofol running at 30 mcg/kg/min. IV fluids are currently at KVO. She remains on mechanical ventilator, assist-control mode with rate of 28, tidal volume of 400, FiO2 of 40% with a PEEP of 5. Blood gas shows a pH of 7.52 with a pCO2 of 32 and pO2 of 68. The patient underwent a bout of hemodialysis yesterday with a total of 1 l of ultrafiltration and repeat chest x-ray from today is still showing worsening interstitial edema and the patient has a small right-sided pleural effusion and persistent left retrocardiac opacity consistent with pleural effusion. The patient is going to undergo another session of hemodialysis today. Hemodynamically, the patient is stable and she is on no pressors. IV fluids at KVO. No urine output. The blood work shows an obese, 7.9, hemoglobin is 8.3 and platelet count of 121. Sodium is at 132, BUN is at 37 with a creatinine of 5.7 and his sugar is at 140. Troponin from yesterday was 0.026. The patient remains on Rocephin and Flagyl. The patient is also on 32 units of Levemir insulin twice a day in addition to NovoLog sliding scale coverage. General surgery is on the case. Nephrology on the case. LFTs from today are still pending. On today's evaluation of 06/09/2023, the patient is still intubated on the mechanical ventilator. Chest x-ray still showing pulm edema and bilateral pleural effusions. The patient underwent hemodialysis yesterday and a total of 4 L of fluid was removed. Making recommendations for another session of hemodialysis today. She remains on norepinephrine 0.04 mcg/kg/min. She is on propofol at 30 mcg/kg/h and she is arousable once of sedation. The patient is on IV fluids at KVO. No urine output. Low-dose norepinephrine is still running. NG tube is in place and output is minimal at this point in time. She is on assist-control mode of mechanical ventilation at rate of 28, tidal volume of 400, FiO2 of 35 % and PEEP of 5, and the blood gas from today shows a pH of 7.56 with a pCO2 of 29 and pO2 of 76. BUN is at 28 with a creatinine of 5.3 and a sodium levels at 133. The white cell count of 9 with a hemoglobin of 8.4 and a platelet count of 135. She is afebrile. Sputum sample is showing Marla albicans. On a separate note, the patient did have episodes of hypoglycemia. She was taken Levemir insulin and this will be placed on hold. She remains n.p.o. for now. Patient was seen today on 06/10/2023, remains intubated and mechanically ventilated. Patient is on assist-control rate of 16 tidal volume 400 FiO2 35% PEEP of 5 ABG showed a pO2 of 117 pCO2 38 pH of 7.40, hence no changes were made today. Vent settings remain the same. Patient is undergoing hemodialysis, still requiring pressors/norepinephrine at 0.09 mcg/kg/min still on propofol at 35 mcg/kg/min patient is receiving tube feeding. She is receiving hemodialysis today and this is scheduled for Saturday and Saturday. Looking back at the note, on 06/06, patient underwent ERCP, and she developed a cardiac arrest. Her initial admission date was on 05/29. When the patient had CPR, she was actually in pulseless electrical activity she did receive CPR epinephrine and atropine. Received CPR for anywhere between 2 to 3 minutes, and there was return of spontaneous circulation and the blood pressure. WBC count today is 9.3 hemoglobin is 8.4. Basic metabolic profile is normal bicarb is 18 BUN is 30, creatinine 6.49 chest x-ray is showing worsening infiltrates/pneumonia. Bilateral airspace disease. today on 06/11/2023, patient remains in the ICU, intubated and mechanically ventilated. Patient is on assist-control rate of 16 tidal volume 400 FiO2 35% PEEP of 5 ABG showed a pO2 of 109 pCO2 38 pH of 7.41 chest x-ray showed cardiomegaly, and bilateral pulmonary edema, underlying pneumonia is not entirely ruled out, patient is being dialyzed. BBC count is 9.6 hemoglobin 8.2 platelets are 115, basic metabolic profile is normal renal profile showed a BUN of 22 creatinine 5.16 total bilirubin is 2.4 alkaline phosphatase 575, sputum cultures positive for Marla species not albicans and not Marla glabrata p fannie is still on propofol, he is arousable, follows very simple instructions like closing eyes and squeezing hands. She is on propofol at 30 mcg/kg/min still requiring norepinephrine at 0.05 mcg/kg/min she is receiving enteral feeding at 30 cc/h. Antibiotics espino patient is on ceftriaxone and vancomycin Reevaluate today on 06/12/2023 patient remains ICU, I extubated the patient yesterday initially to BiPAP and now to nasal cannula at 2 L. Patient tolerated the extubation well, she is doing much better today she is awake, not in any distress, she is doing fairly well with incentive spirometry, she is not scheduled to have hemodialysis today but she will have 1 tomorrow. In the meantime the patient remains on antibiotics in the form of Flagyl vancomycin and Rocephin, speech therapy to evaluate for possible swallow evaluation, and again the plan is to transfer the patient to a medical surgical floor today. WBC count today is 7.6 hemoglobin is 7.5. Low potassium of 3.6 low sodium of 130 BUN is 20 creatinine 3.85, no chest x-ray was done on this patient today. The patient is seen today June 13, 2023 in follow-up on the selective care unit. She was transferred out of the intensive care unit. She is currently maintaining good O2 saturations in the 90s on 2 L/min per nasal cannula. Plan is for hemodialysis today. A PICC line has been placed today. White count 6.5. Hemoglobin 7.8. Platelets 149. Sodium 130. Potassium 4.1. Bicarb 20. BUN 29. Creatinine 5.44. Glucose 143. She remains on DuoNeb ventilations, Pulmicort and performing scintillations. Lovenox for DVT prophylaxis. Antibiotics in the form of Flagyl, ceftriaxone and vancomycin. Objective - Vital Signs Vital signs: Vital Signs Temp 98.2 F 06/13/23 12:18 Pulse 54 L 06/13/23 15:17 Resp 18 06/13/23 12:18 BP 104/50 06/13/23 12:18 Pulse Ox 94 L 06/13/23 09:17 FiO2 40 06/11/23 19:30 Intake & Output 06/12/23 06/13/23 06/13/23 18:59 06:59 18:59 Intake Total 170 400 Output Total 0 0 2900 Balance 170 0 -2500 Weight 144.5 kg 144.5 kg Intake: IV 170 NS 0.9% KVO 20 cefTRIAXone 2 gm In 50 Sodium Chloride 0.9% 50 ml @ 100 mls/hr IVPB Q24HR [facility] Rx#:[id number] metroNIDAZOLE-NS PMX 500 100 mg In Saline 1 100ml.bag @ 100 mls/hr IVPB Q8HR [facility] Rx#:[id number] Hemodialysis 400 Output: Urine 0 0 Hemodialysis 2900 Other: Voiding Method Toilet ABP, PAP, CO, CI - Last Documented Arterial Blood Pressure 108/54 - Exam General Appearance: Reveals a pleasant 68-year-old female, sitting comfortably in bed, on 2 Lnasal cannula, not in distress Neck HEENT: Supple, no lymphadenopathy, no thyroid enlargement, no carotid bruits. Lungs: Symmetrical chest expansion, Minich breath sounds at the bases no rhonchi no wheezes Chest Wall: No chest wall deformity, no tenderness. Heart: S1-S2, no S3 gallop. Murmur. Abdomen: Soft nontender no megaly no rebound, suspect small ascites. Extremities: 1+ bipedal edema. Pulses: Distal pulses bilaterally slightly diminished. Skin: Skin color, texture, tugor normal, no rashes or lesions. Neurologic: Awake alert and oriented x 3 no gross focal deficit Psychiatric: Alert oriented x 3, normal mood normal affect normal mental status examination. - Labs CBC & Chem 7: 06/13/23 08:55 06/13/23 09:23 Labs: Abnormal Lab Results - Last 24 Hours (Table) 06/12/23 06/12/23 06/13/23 Range/Units 17:43 23:40 06:21 RBC (3.80-5.40) m/uL Hgb (11.4-16.0) gm/dL Hct (34.0-46.0) % MCV (80.0-100.0) fL RDW (11.5-15.5) % Plt Count (150-450) k/uL Macrocytosis Sodium (137-145) mmol/L Chloride (98-107) mmol/L Carbon Dioxide (22-30) mmol/L BUN (7-17) mg/dL Creatinine (0.52-1.04) mg/dL Glucose (74-99) mg/dL POC Glucose (mg/dL) 150 H 131 H 147 H (70-110) mg/dL Total Bilirubin (0.2-1.3) mg/dL AST (14-36) U/L ALT (4-34) U/L Alkaline Phosphatase (38-126) U/L Total Protein (6.3-8.2) g/dL Albumin (3.5-5.0) g/dL 06/13/23 06/13/23 06/13/23 Range/Units 08:55 09:23 12:03 RBC 2.28 L (3.80-5.40) m/uL Hgb 7.8 L (11.4-16.0) gm/dL Hct 24.6 L (34.0-46.0) % MCV 107.8 H (80.0-100.0) fL RDW 17.4 H (11.5-15.5) % Plt Count 149 L (150-450) k/uL Macrocytosis Marked A Sodium 130 L (137-145) mmol/L Chloride 95 L (98-107) mmol/L Carbon Dioxide 20 L (22-30) mmol/L BUN 29 H (7-17) mg/dL Creatinine 5.44 H (0.52-1.04) mg/dL Glucose 143 H (74-99) mg/dL POC Glucose (mg/dL) 117 H (70-110) mg/dL Total Bilirubin 2.1 H (0.2-1.3) mg/dL AST 62 H (14-36) U/L ALT 37 H (4-34) U/L Alkaline Phosphatase 577 H (38-126) U/L Total Protein 6.1 L (6.3-8.2) g/dL Albumin 2.5 L (3.5-5.0) g/dL Microbiology - Last 24 Hours (Table) 06/10/23 12:01 Anaerobic Culture - Preliminary Arm - Right 06/11/23 13:15 Blood Culture - Preliminary Blood 06/10/23 12:55 Blood Culture - Preliminary Blood 06/10/23 12:01 Gram Stain - Final Arm - Right Wound Culture - Final Assessment and Plan Assessment: Cardiac arrest/PEA status post 1 round of CPR for a total of 2 to 3 minutes Acute hypoxic respiratory failure secondary to above Fluid overload requiring hemodialysis with pulmonary edema and bilateral pleural effusions, patient is on hemodialysis Possible aspiration pneumonia Acute cholecystitis status postcholecystectomy done on 06/03/2023 Choledocholithiasis requiring ERCP done on 06/07/2023 with sphincterectomy and extraction of 3 small stone Morbid obesity Benign essential hypertension Type 2 diabetes, on Levemir and insulin and sliding scale History of hypothyroidism Abnormal liver enzymes secondary to choledocholithiasis possible cholangitis. End-stage renal disease on hemodialysis Anemia of chronic disease Plan: The patient was seen and evaluated Labs and medications reviewed PICC line placed today Antibiotics per ID services Hemodialysis today Titrate the FiO2 as tolerated We will continue to follow I have personally seen and examined the patient, performed the documentation and the assessment and plan as written. Number of minutes spent on the visit: 10.
[2023-06-13 18:07] LABS: Glucose,Whole Blood 156 mg/dL (70-110)
[2023-06-14] LABS: Glucose,Whole Blood 160 mg/dL (70-110)
[2023-06-14 06:09] LABS: Glucose,Whole Blood 132 mg/dL (70-110)
[2023-06-14 11:48] LABS: Glucose,Whole Blood 182 mg/dL (70-110)
--- NOTE | 2023-06-14 12:00 | P.PN ---
Subjective Patient is seen in follow-up for end-stage renal disease. She is maintained on hemodialysis on Saturday schedule. No problems with dialysis yesterday. On room air. Denies chest pain or shortness of breath. Vital signs are stable. General: Resting in bed. HEENT: On room air. LUNGS: No audible rhonchi or wheezes. HEART: Rate and Rhythm are regular. ABDOMEN: Obese, no distention. EXTREMITITES: Trace edema. Objective - Vital Signs Vital signs: Vital Signs Temp 97.6 F 06/14/23 08:30 Pulse 58 L 06/14/23 08:37 Resp 16 06/14/23 08:30 BP 119/51 06/14/23 08:30 Pulse Ox 100 06/14/23 08:30 FiO2 40 06/11/23 19:30 Intake & Output 06/13/23 06/14/23 06/14/23 18:59 06:59 18:59 Intake Total 580 236 Output Total 2900 Balance -2320 236 Weight 144.5 kg 143 kg Intake: Oral 180 236 Hemodialysis 400 Output: Hemodialysis 2900 Other: Voiding Method Toilet Toilet Bedpan # Voids 0 # Bowel Movements 0 ABP, PAP, CO, CI - Last Documented Arterial Blood Pressure 108/54 - Labs CBC & Chem 7: 06/13/23 08:55 06/13/23 09:23 Labs: Abnormal Lab Results - Last 24 Hours (Table) 06/13/23 06/13/23 06/13/23 Range/Units 12:03 18:05 23:59 POC Glucose (mg/dL) 117 H 156 H 160 H (70-110) mg/dL 06/14/23 06/14/23 Range/Units 06:07 11:45 POC Glucose (mg/dL) 132 H 182 H (70-110) mg/dL Microbiology - Last 24 Hours (Table) 06/11/23 13:15 Blood Culture - Preliminary Blood 06/10/23 12:55 Blood Culture - Preliminary Blood Assessment and Plan Plan: Assessment: 1. End-stage renal disease maintained on hemodialysis on Saturday schedule via AV graft. 2. Infiltrated AV graft. Seen by vascular surgery. Now being used. 3. Nausea and vomiting. CT showed no acute process. Status post laparoscopic cholecystectomy this admission. Also underwent ERCP with 3 small stones extracted. 4. Volume overload. Improved with ultrafiltration. 5. Hypotension maintained on midodrine. Off vasopressors. 6. Diabetes mellitus. 7. Chronic kidney disease mineral bone disease maintained on Renvela. Phosph orus level 5.5 dated June 11, 2023. 8. Anemia of chronic kidney disease. On Aranesp. 9. Status postcardiac arrest. 10. Hypokalemia from poor intake. Improved. 11. Metabolic acidosis secondary to chronic kidney disease. Expect improvement postdialysis. 12. Hyponatremia secondary to chronic kidney disease. Hypervolemic. Stable. Plan: Hemodialysis tomorrow. Maintain midodrine. Hold for systolic blood pressure greater than 110. Awaits discharge to rehab.
[2023-06-14 12:44] LABS: Anisocytosis Slight; Basophils # (A) 0.1 k/uL (0-0.2); Basophils % (A) 1 %; Eosinophils # (A) 0.2 k/uL (0-0.7); Eosinophils % (A) 3 %; HCT 25.9 % (34.0-46.0); HGB 8.1 gm/dL (11.4-16.0); Hypochromasia Moderate; Lymphocytes % (A) 18 %; MCH 34.7 pg (25.0-35.0); MCHC 31.3 g/dL (31.0-37.0); MCV 110.7 fL (80.0-100.0); Macrocytosis Marked; Mean Platelet Volume 10.9; Monocytes # (A) 0.3 k/uL (0-1.0); Monocytes % (A) 6 %; Neutrophils % (A) 70 %; Platelet Count 178 k/uL (150-450); RBC 2.34 m/uL (3.80-5.40); RDW 17.4 % (11.5-15.5); WBC 5.7 k/uL (3.8-10.6)
[2023-06-14 13:08] LABS: ALT 43 U/L (4-34); AST 74 U/L (14-36); African American GFR (CKD) 12 (>60 ml/min/1.73 sqM); Albumin 2.7 g/dL (3.5-5.0); Anion Gap 12 mmol/L; Blood Urea Nitrogen 22 mg/dL (7-17); Calcium 8.4 mg/dL (8.4-10.2); Carbon Dioxide 22 mmol/L (22-30); Chloride 99 mmol/L (98-107); Glucose 168 mg/dL (74-99); Non-African American GFR(CKD) 10 (>60 ml/min/1.73 sqM); Potassium 4.1 mmol/L (3.5-5.1); Sodium 133 mmol/L (137-145); Total Protein 6.6 g/dL (6.3-8.2)
[2023-06-14 13:58] LABS: Alkaline Phosphatase 613 U/L (38-126)
--- NOTE | 2023-06-14 15:31 | P.PN ---
Subjective Progress Note Date: 06/14/23 Principal diagnosis: Reason for follow-up is possible right upper extremity AV graft infection Patient is a 68-year-old female with multiple comorbidity initially presented to the hospital with nausea vomiting diagnosed with cholecystitis status post laparoscopic ostectomy followed by ERCP sphincterotomy and balloon stone extraction did have a cardiac arrest requiring elicitation and subsequent admission to ICU patient did have a history of renal failure on dialysis through the right upper extremity AV graft and noted to have some drainage prompting this consultation. On today's visit that is 06/14/2023, patient has been afebrile, patient is breathing comfortably and is currently on room air, patient denies having any significant cough no chest pain shortness of breath, patient denies nausea vomiting or diarrhea and no abdominal pain or pain to the right upper arm fistula site. Patient white count is 5.7, creatinine 4.10 white count is 19.1 culture has been negative Objective - Vital Signs Vital signs: Vital Signs Temp 97.6 F 06/14/23 08:30 Pulse 58 L 06/14/23 08:37 Resp 16 06/14/23 08:30 BP 119/51 06/14/23 08:30 Pulse Ox 100 06/14/23 08:30 FiO2 40 06/11/23 19:30 Intake & Output 06/13/23 06/14/23 06/14/23 18:59 06:59 18:59 Intake Total 580 354 Output Total 2900 Balance -2320 354 Weight 144.5 kg 143 kg Intake: Oral 180 354 Hemodialysis 400 Output: Hemodialysis 2900 Other: Voiding Method Toilet Toilet Bedpan # Voids 0 # Bowel Movements 0 ABP, PAP, CO, CI - Last Documented Arterial Blood Pressure 108/54 - Exam GENERAL DESCRIPTION: An elderly female lying in bed in no distress RESPIRATORY SYSTEM: Unlabored breathing , decreased breath sounds at bases HEART: S1 S2 regular rate and rhythm , ABDOMEN: Soft , no tenderness EXTREMITIES: Right upper extremity AV graft site with bruising some swelling no redness - Labs CBC & Chem 7: 06/14/23 10:54 06/14/23 10:54 Labs: Abnormal Lab Results - Last 24 Hours (Table) 06/13/23 06/13/23 06/14/23 Range/Units 18:05 23:59 06:07 POC Glucose (mg/dL) 156 H 160 H 132 H (70-110) mg/dL 06/14/23 Range/Units 11:45 POC Glucose (mg/dL) 182 H (70-110) mg/dL Microbiology - Last 24 Hours (Table) 06/11/23 13:15 Blood Culture - Preliminary Blood 06/10/23 12:55 Blood Culture - Preliminary Blood Assessment and Plan (1) Infection of AV graft for dialysis Current Visit: Yes Status: Acute Code(s): T82.7XXA - INFECT/INFLM REACT D/T OTH CARDI/VASC DEV/IMPLNT/GRFT, INIT SNOMED Code(s): 862373394 Plan: 1patient with a right upper extremity AV graft in this patient with a history of end-stage renal disease on dialysis admission to hospital abdominal pain status postcholecystectomy followed by ERCP with extraction of stones and did have a cardiac arrest admission to the ICU no concerning for drainage from the AV graft possible infection however the patient not running any fever no significant erythema was noticed and did have a normal white count. 2blood and local cultures obtained which are so far negative making infection of the graft slough to be less likely we will go ahead and discontinue vancomycin and monitor the patient closely off antibiotic therapy Dictation was produced using [employer] dictation software. please excuse any grammatical, word or spelling errors. Time with Patient: Less than 30
--- NOTE | 2023-06-14 15:38 | P.PN ---
Subjective Progress Note Date: 06/14/23 Principal diagnosis: Cardiac arrest This is a 68-year-old female patient was seen in the endoscopy room as the patient was undergoing an ERCP for choledocholithiasis patient also underwent biliary sphincterectomy and balloon extraction of a total of 3 small stones. Noted the patient presented to the hospital approximately a week ago for epigastric pain along with nausea and vomiting and subsequently patient was found to have elevated and in the bilirubin and transaminitis. CAT scan of the abdomen pelvis showed gallstones and the patient underwent a cholecystectomy approximately 2 days ago. The patient continues to have issues with pain and elevation in LFTs. Based on that, the patient underwent an ERCP today. Note that following the procedure, the patient was being flipped around and end-tidal CO2 was found to be extremely low and subsequently the patient was found to be unresponsive. At that time the patient was still intubated. She was blue. She was pulseless. The rhythm could not be established as the patient did not have the leads on her chest. Immediately, CPR was initiated and the patient was given 1 round of epinephrine and subsequently a dose of epinephrine for bradycardia. She received CPR for total of 2 to 3 minutes and subsequently ther e was return of spontaneous circulation and a blood pressure. The patient was kept intubated and patient got transferred to the intensive care unit. She is a morbidly obese female patient who weighs 100 on 144 kg and she has a body mass index of 56.2. I saw the patient in the endoscopy room and I also examined the patient in the ICU. The chest x-ray that was done showed cardiomegaly with mild pulm vessel congestion. He did she was in a good location. Inserted triple- lumen catheter and arterial line on this patient for blood pressure monitoring and hemodynamic support. At this point in time, the patient is normotensive. Blood gas showed a pH of 7.47 with a pCO2 of 35 and a pO2 of 316. This was on FiO2 of 100% with a PEEP of 5 and a total volume of 400 with a rate of 28. Morning c blood work showed a white cell count of 7.5 with a hemoglobin 8.2. Sodium was at 132, serum bicarb was at 23 with a BUN of 31 and a creatinine of 4.5. The patient also had a gamma GT of 331, AST of 80, ALT of 52, alkaline phosphatase of 506 and the patient's bilirubin was at 2.8. Lipase level was at 97. Note that the patient has end-stage renal disease on HD undergoes hemodialysis. The last hemodialysis session was yesterday with a total of 2 L of fluid removed. She also has hypertension, hypothyroidism, diabetes mellitus type 2 and the patient has been maintained on Humalog 22 units with meals and Lantus 23 units twice a day along with a sliding scale coverage. The patient has issues with chronic anemia. No history of any previous cardiac disease to my knowledge. A cardiac stress test was done preoperatively on 06/03/2023 showed no evidence of any reversible ischemia and the patient had an ejection fraction of 40%. Noted the patient surgery was done on 06/03/2023 and the patient underwent a laparoscopic cholecystectomy. Surgical wound site is dry clean and intact at this point in time. On today's evaluation of 06/08/2023, the patient remains intubated on mechanical ventilator. The patient is postcardiac arrest and this was a brief cardiopulmonary arrest as discussed earlier. This morning, the patient is adequately sedated propofol running at 30 mcg/kg/min. IV fluids are currently at KVO. She remains on mechanical ventilator, assist-control mode with rate of 28, tidal volume of 400, FiO2 of 40% with a PEEP of 5. Blood gas shows a pH of 7.52 with a pCO2 of 32 and pO2 of 68. The patient underwent a bout of hemodialysis yesterday with a total of 1 l of ultrafiltration and repeat chest x-ray from today is still showing worsening interstitial edema and the patient has a small right-sided pleural effusion and persistent left retrocardiac opacity consistent with pleural effusion. The patient is going to undergo another session of hemodialysis today. Hemodynamically, the patient is stable and she is on no pressors. IV fluids at KVO. No urine output. The blood work shows an obese, 7.9, hemoglobin is 8.3 and platelet count of 121. Sodium is at 132, BUN is at 37 with a creatinine of 5.7 and his sugar is at 140. Troponin from yesterday was 0.026. The patient remains on Rocephin and Flagyl. The patient is also on 32 units of Levemir insulin twice a day in addition to NovoLog sliding scale coverage. General surgery is on the case. Nephrology on the case. LFTs from today are still pending. On today's evaluation of 06/09/2023, the patient is still intubated on the mechanical ventilator. Chest x-ray still showing pulm edema and bilateral pl eural effusions. The patient underwent hemodialysis yesterday and a total of 4 L of fluid was removed. Making recommendations for another session of hemodialysis today. She remains on norepinephrine 0.04 mcg/kg/min. She is on propofol at 30 mcg/kg/h and she is arousable once of sedation. The patient is on IV fluids at KVO. No urine output. Low-dose norepinephrine is still running. NG tube is in place and output is minimal at this point in time. She is on assist-control mode of mechanical ventilation at rate of 28, tidal volume of 400, FiO2 of 35 % and PEEP of 5, and the blood gas from today shows a pH of 7.56 with a pCO2 of 29 and pO2 of 76. BUN is at 28 with a creatinine of 5.3 and a sodium levels at 133. The white cell count of 9 with a hemoglobin of 8.4 and a platelet count of 135. She is afebrile. Sputum sample is showing Marla albicans. On a separate note, the patient did have episodes of hypoglycemia. She was taken Levemir insulin and this will be placed on hold. She remains n.p.o. for now. Patient was seen today on 06/10/2023, remains intubated and mechanically ventilated. Patient is on assist-control rate of 16 tidal volume 400 FiO2 35% PEEP of 5 ABG showed a pO2 of 117 pCO2 38 pH of 7.40, hence no changes were made today. Vent settings remain the same. Patient is undergoing hemodialysis, still requiring pressors/norepinephrine at 0.09 mcg/kg/min still on propofol at 35 mcg/kg/min patient is receiving tube feeding. She is receiving hemodialysis today and this is scheduled for Saturday and Saturday. Looking back at the note, on 06/06, patient underwent ERCP, and she developed a cardiac arrest. Her initial admission date was on 05/29. When the patient had CPR, she was actually in pulseless electrical activity she did receive CPR epinephrine and atropine. Received CPR for anywhere between 2 to 3 minutes, and there was return of spontaneous circulation and the blood pressure. WBC count today is 9.3 hemoglobin is 8.4. Basic metabolic profile is normal bicarb is 18 BUN is 30, creatinine 6.49 chest x-ray is showing worsening infiltrates/pneumonia. Bilateral airspace disease. today on 06/11/2023, patient remains in the ICU, intubated and mechanically ventilated. Patient is on assist-control rate of 16 tidal volume 400 FiO2 35% PEEP of 5 ABG showed a pO2 of 109 pCO2 38 pH of 7.41 chest x-ray showed cardiomegaly, and bilateral pulmonary edema, underlying pneumonia is not entirely ruled out, patient is being dialyzed. BBC count is 9.6 hemoglobin 8.2 platelets are 115, basic metabolic profile is normal renal profile showed a BUN of 22 creatinine 5.16 total bilirubin is 2.4 alkaline phosphatase 575, sputum cultures positive for Marla species not albicans and not Marla glabrata patient is still on propofol, he is arousable, follows very simple instructions like closing eyes and squeezing hands. She is on propofol at 30 mcg/kg/min still requiring norepinephrine at 0.05 mcg/kg/min she is receiving enteral feeding at 30 cc/h. Antibiotics espino patient is on ceftriaxone and vancomycin Reevaluate today on 06/12/2023 patient remains ICU, I extubated the patient yesterday initially to BiPAP and now to nasal cannula at 2 L. Patient tolerated the extubation well, she is doing much better today she is awake, not in any distress, she is doing fairly well with incentive spirometry, she is not scheduled to have hemodialysis today but she will have 1 tomorrow. In the meantime the patient remains on antibiotics in the form of Flagyl vancomycin and Rocephin, speech therapy to evaluate for possible swallow evaluation, and again the plan is to transfer the patient to a medical surgical floor today. WBC count today is 7.6 hemoglobin is 7.5. Low potassium of 3.6 low sodium of 130 BUN is 20 creatinine 3.85, no chest x-ray was done on this patient today. The patient is seen today June 13, 2023 in follow-up on the selective care unit. She was transferred out of the intensive care unit. She is currently m aintaining good O2 saturations in the 90s on 2 L/min per nasal cannula. Plan is for hemodialysis today. A PICC line has been placed today. White count 6.5. Hemoglobin 7.8. Platelets 149. Sodium 130. Potassium 4.1. Bicarb 20. BUN 29. Creatinine 5.44. Glucose 143. She remains on DuoNeb ventilations, Pulmicort and performing scintillations. Lovenox for DVT prophylaxis. Antibiotics in the form of Flagyl, ceftriaxone and vancomycin. Reevaluate today on 06/14/2023, patient remains on 3 S., doing well, she is actually asymptomatic, no cough no wheezing no shortness of breath.Patient is on room air with O2 sats of 93%, family is at bedside, patient is being considered for placement. WBC count is 5.7 hemoglobin 8.1 basic metabolic profile is normal creatinine 4.10, vancomycin has been discontinued by infectious disease on the case, nephrology is still addressing her hemodialysis Objective - Vital Signs Vital signs: Vital Signs Temp 97.5 F L 06/14/23 12:00 Pulse 53 L 06/14/23 12:00 Resp 18 06/14/23 12:00 BP 111/47 06/14/23 12:00 Pulse Ox 93 L 06/14/23 12:00 FiO2 40 06/11/23 19:30 Intake & Output 06/13/23 06/14/23 06/14/23 18:59 06:59 18:59 Intake Total 580 354 Output Total 2900 Balance -2320 354 Weight 144.5 kg 143 kg Intake: Oral 180 354 Hemodialysis 400 Output: Hemodialysis 2900 Other: Voiding Method Toilet Toilet Bedpan # Voids 0 # Bowel Movements 0 ABP, PAP, CO, CI - Last Documented Arterial Blood Pressure 108/54 - Exam General Appearance: Reveals 68-year-old female, on room air Neck HEENT: Supple, no lymphadenopathy, no thyroid enlargement, no carotid bruits. Lungs: Symmetrical chest expansion, good breath sound bilaterally no rhonchi no wheeze Chest Wall: No chest wall deformity, no tenderness. Heart: S1-S2, no S3 gallop. Murmur. Abdomen: Soft nontender no megaly no rebound, suspect small ascites. Extremities: 1+ bipedal edema. Pulses: Distal pulses bilaterally slightly diminished. Skin: Skin color, texture, tugor normal, no rashes or lesions. Neurologic: Awake alert and oriented x 3 no gross focal deficit Psychiatric: Alert oriented x 3, normal mood normal affect normal mental status examination. - Labs CBC & Chem 7: 06/14/23 10:54 06/14/23 10:54 Labs: Abnormal Lab Results - Last 24 Hours (Table) 06/13/23 06/13/23 06/14/23 Range/Units 18:05 23:59 06:07 RBC (3.80-5.40) m/uL Hgb (11.4-16.0) gm/dL Hct (34.0-46.0) % MCV (80.0-100.0) fL RDW (11.5-15.5) % Macrocytosis Sodium (137-145) mmol/L BUN (7-17) mg/dL Creatinine (0.52-1.04) mg/dL Glucose (74-99) mg/dL POC Glucose (mg/dL) 156 H 160 H 132 H (70-110) mg/dL Total Bilirubin (0.2-1.3) mg/dL AST (14-36) U/L ALT (4-34) U/L Alkaline Phosphatase (38-126) U/L Albumin (3.5-5.0) g/dL 06/14/23 06/14/23 06/14/23 Range/Units 10:54 10:54 11:45 RBC 2.34 L (3.80-5.40) m/uL Hgb 8.1 L (11.4-16.0) gm/dL Hct 25.9 L (34.0-46.0) % MCV 110.7 H (80.0-100.0) fL RDW 17.4 H (11.5-15.5) % Macrocytosis Marked A Sodium 133 L (137-145) mmol/L BUN 22 H (7-17) mg/dL Creatinine 4.10 H (0.52-1.04) mg/dL Glucose 168 H (74-99) mg/dL POC Glucose (mg/dL) 182 H (70-110) mg/dL Total Bilirubin 2.0 H (0.2-1.3) mg/dL AST 74 H (14-36) U/L ALT 43 H (4-34) U/L Alkaline Phosphatase 613 H (38-126) U/L Albumin 2.7 L (3.5-5.0) g/dL Microbiology - Last 24 Hours (Table) 06/11/23 13:15 Blood Culture - Preliminary Blood 06/10/23 12:55 Blood Culture - Preliminary Blood Assessment and Plan Assessment: Impression: Cardiac arrest/PEA status post 1 round of CPR for a total of 2 to 3 minutes Acute hypoxic respiratory failure secondary to above Fluid overload requiring hemodialysis with pulmonary edema and bilateral pleural effusions, patient is on hemodialysis Possible aspiration pneumonia Acute cholecystitis status postcholecystectomy done on 06/03/2023 Choledocholithiasis requiring ERCP done on 06/07/2023 with sphincterectomy and extraction of 3 small stone Morbid obesity Benign essential hypertension Type 2 diabetes, on Levemir and insulin and sliding scale History of hypothyroidism Abnormal liver enzymes secondary to choledocholithiasis possible cholangitis. End-stage renal disease on hemodialysis Anemia of chronic disease Recommendation: Patient was extubated yesterday and tolerated the extubation well, for the last few days Patient is now on room air Discontinue antibiotics as recommended by ID on the case Continue hemodialysis as felt necessary by nephrology on the case Advance diet as tolerated Continue DuoNeb updrafts Continue GI and DVT prophylaxis/Lovenox and Protonix Continue Synthroid Patient will eventually require ECF placement Will continue to follow Time with Patient: Less than 30
[2023-06-14 16:52] LABS: Glucose,Whole Blood 209 mg/dL (70-110)
[2023-06-14] MEDS: VANCOMYCIN 2,000 MG in SODIUM CHLORIDE 0.9% 500 ML 500 ML IVPB ONE (19:37)
[2023-06-14 20:32] LABS: Glucose,Whole Blood 165 mg/dL (70-110)
--- NOTE | 2023-06-15 05:50 | P.PN ---
Subjective Progress Note Date: 06/14/23 HISTORY OF PRESENT ILLNESS: 68-year-old female 89 office patient who was hospitalized recently at [facility] for abscess and infected armpit area with slight recurrent abdominal discomfort with gallbladder dyskinesia at the time. Patient has end-stage renal disease on hemodialysis 3 times a week also has known to have type 2 diabetes, obstructive sleep apnea, hypertension, hyperlipidemia, hypothyroidism, she brought to the emergency department because of intractable nausea vomiting and diarrhea could not complete dialysis yesterday with worsening fever and chills with abdominal distention without any significant chest pain no bloody stool. Also had infiltrate her fistula which the reason why here hemodialysis was stopped early. With her current symptoms and the significant abnormal liver function test from her last hospitalization which patient was study in detail and found to have biliary hypokinesia via HIDA scan done last month. Patient liver function test this time came back with total bilirubin of 1.9 with AST of 414 and ALT 154 with alkaline phosphatase 224 also lipase of 315 with amylase of 49 which make the diagnosis of subacute pancreatitis as well. Also she continued to have significant anemia with hemoglobin of 8.1 platelet count 1 65, 000 patient creatinine was 6.5 with BUN of 39. Patient was seen and evaluated at the emergency department with above complaint COVID influenza and RSV were negative, CT of the abdomen and pelvis was performed again this time and showed no bowel obstruction with no acute finding identified to the amount of patient's symptoms of the pancreas visualized to be fine with small but prominent calcification on the gallbladder as a gallstone with no surrounding ill-defined fluid and fat stranding. Gallbladder ultrasound was performed again as well and showed hepatomegaly with heterogeneous hyper echoic appearance of the liver suggestive of diffuse fatty infiltrate with hepatocellular disease with no adjacent ascites, gallstones redemonstrated without ultrasound evidence of acute cholecystitis. Patient was hospitalized and consult at this point gastroenterology for her recurrent symptoms with nausea and vomiting to conclude the possibility of gallbladder and gallstone with abnormal liver function test. And also to help to make decision whether her gallbladder should be removed or not. Cardiology consultation for cardiology clearance which patient has no history of cardiac disease no change on her EKG at this point or any change in cardiac enzymes. Nephrology consultation was requested to continue hemodialysis. Also request consult of vascular for her fistula. 06/03/2023: Patient was evaluated through the weekend by cardiology, general surgery, nephrology. Was continued on hemodialysis, also continue on IV antibiotic with Rocephin and Flagyl due to slight concern of leukocytosis. 3 did not have any increased nausea or vomiting no diarrhea, liver function test still slightly bit elevated. Cardiology evaluated patient ordered an echocardiogram and and furthermore decided to do a nuclear stress test before clearing her for surgery. Nuclear stress test scheduled this morning if patient goes through with no problem she will be going for her cholecystectomy as an extent. 06/04/2023: Laboratory values showed slight increase in alkaline phosphatase along with total bilirubin make the possibility of having obstruction of the common bile with stone or other is much higher. Delay patient discharge at this point and should go for an MRCP initially if there is any finding consistent with stone or blockage of the common duct she might need to go for an ERCP to extract stone and stent the area. Will delay discharge till this is done and cleared in the meanwhile repeat labs again tomorrow. Patient hemodialysis days today which we will continue to do as an inpatient. 06/05/2023: Patient MRCP came back with several area of calcification in the common duct consistent with cholelithiasis. Patient will be seen gastroenterology for ERCP probably to extract the stone and probably do stent in the common duct. 06/06/2023: After finishing the MRCP and finding more calcification and possibly stone across the common duct patient liver enzymes continue to be elevated total bilirubin still at 2.8 right alk phos 541 AST 59 ALT 62, specially with the current findings will require to go for an ERCP and possible required to extract the stone and put a stent in the common duct. Apparently gastroenterology are planning to do this procedure on Saturday. Meanwhile patient is asymptomatic continue clear liquid diet and advance gradually and dialysis will be done today as well. 06/07/2023: Patient ended up going for her ERCP 3 stones were extracted through the procedure but shortly after procedure she coded and required resuscitation lasted for over a few minutes after giving her atropine patient pulse rate returned but she was intubated and transferred to the ICU at this point. Patient has been resting in the ICU after the current complication, family apparently were updated by gastroenterology along with dust collector operator. Continue to do the complication currently patient is not conscious but resting comfortably i n the ICU. 06/08/2023: Patient remain in the ICU on mechanical ventilation, still on vasopressor, she will be going for dialysis today. Her level of responsiveness still limited. Labs today with hemoglobin is 8.3 liver function test were not done will add it to the lab done today. She is still seen pulmonary and cardiology she is still quite hypotensive with pulse rate is down remain on Levophed at this point try to keep her blood pressure systolic above 100. 06/09/2023: She is still intubated on mechanical ventilation she is fluid overload still on vasopressor that she is awake alert will be hopefully extubated tomorrow with her fluid overload will be on hemodialysis today which will help some. Her laboratory value with hemoglobin is 8.4 white blood cell 9.0 ABG still showing blood patient had quite with respiratory alkalosis. Also still required a smaller dose of vasopressor. Will initiate feeding via NG tube today. 06/10/2023: Patient remain in the ICU on mechanical ventilation and still on mild sedation on vasopressor with Levophed, she will be going on ultrafiltration on d ialysis today repeat another 1 tomorrow on backing off on sedation she is responding sound but she still require sedation at this point and she is not ready to be extubated yet. Pulmonary Dr. Anguiano keeping her on assist control rate of 16 with volume of 400 FiO2 of 35 percentile with PEEP of 5 still on propofol at 35 mcg/min still receiving tube feeding at testing today with hemoglobin 8.4 creatinine 6.49 chest x-ray showed worsening infiltrate/pneumonia bilateral space disease. Will continue antibiotics with Rocephin and Flagyl continue enteral feeding prior to advance it continue sedation at this point she is not ready to be extubated today. 06/11/2023: She is remain on mechanical ventilation on a smaller dose of vasopressor is having dialysis today blood pressure still dropping down around dialysis requiring midodrine pulmonary try to wean her off vasopressor and try to extubate. Sputum culture apparently was positive for candidiasis infectious disease and probably have her initiate fluconazole. Still trying to extubate the patient still having quite a bit of fluid overload at this point. Hemoglobin of 8.2 does not require any blood transfusion. She still been treated with wide spectrum antibiotic with Rocephin and vancomycin, still continuous enteral feeding as well. Mostly medication she was on orally with been done through the NG tube. 06/12/2023: She is much better she was extubated around 4:00 in the afternoon yesterday successfully she is going on dialysis today, patient might be able to leave the ICU, she is off vasopressors at this point, speech will evaluate patient and hopefully will initiate diet today. Her hypoxia is much better requiring nasal cannula 2 to 3 L only. Will continue antibiotics for now her central line in the groin area will be taking out patient will have probably PICC line by the end of the day today. Will consult on whether she will have her AV fistula infected or not there is no cyanosis erythema swelling or problem at this point blood culture still pending continue to see infectious disease, patient remain on vancomycin. 06/13/2023: Patient is out of the ICU has been doing well she is on 2 to 3 L of O2 to keep pulse ox above 90 percentile, she becomes slightly bit bradycardic with pulse rate running in the 50s, EKG done today she is not on any suppressive agent for beta-mark at this point. Continue to have severe debility with generalized weakness. Patient be doing dialysis today, continue IV antibiotic she will be having PICC line today her central line from the right groin area was taking out before she left the ICU yesterday. Reactivate PT and OT today and request health and social care teacher to check into patient's status to see if she is in need any help when she is ready to leave the hospital including having to go to inpatient rehab or SNF versus home with home care. 06/14/2023: Patient is doing well doing hemodialysis, has been in the ICU for over 24 hours, there were suspicion for possible AV graft infection with a slight infiltrate and swelling, so far blood cultures negative does not require any further attention for the fistula graft, infectious disease still doing IV antibiotic which are not quite sure patient will require any further antibiotic by the time discharged from the hospital which might do oral antibiotic more than IV. Symptom of nausea and vomiting is much better. Respiratory failure has improved significantly patient currently on O2 only does not require any Pap through the night. Pulmonary are still seeing patient and we hope patient at some point to be on room air about 90 percentile does not require any longer term oxygen. Still doing physical therapy and plan if the patient accepted to go to shelter rehab to be able to do it as early as later today or tomorrow morning. REVIEW OF SYSTEMS: CONSTITUTIONAL: Sedated on mechanical ventilation.. EYES: No icterus sclerae, no conjunctivitis. EARS, NOSE, MOUTH, THROAT, and FACE: No sore throat, lymphadenopathy, carotid bruits or deformity. RESPIRATORY: Slight shortness of breath no cough or wheezes.. CARDIOVASCULAR: Positive PND orthopnea palpitation no angina.. GASTROINTESTINAL: Positive abdominal pain with nausea vomiting diarrhea no constipation no acute gastrointestinal bleed no distention or masses.. GENITOURINARY: Decreased urine output she is on hemodialysis.. INTEGUMENT/BREAST: Negative for any muscular injury with mild osteoarthritis.. HEMATOLOGIC/LYMPHATIC: Chronic anemia and hematoma around the fistula graft.. MUSCULOSKELTAL: Negative for Myalgia or arthralgia. NEURLOGICAL: No LOC, Sz or syncope, blurred vision dizziness or abnormality.. BEHAVIORAL/PSYCH: Negative. ENDOCRINE: Negative. PHYSICAL EXAMINATION: General Appearance: Sedated on mechanical ventilation with the ET tube and NG tube are in.. Neck HEENT: Supple, no lymphadenopathy, no thyroid enlargement, no carotid bruits. Lungs: Positive fine rhonchi in the bases with crackles mostly limited area on the right side no wheezes. Chest Wall: Decreased expansion with deep inspiration no tenderness and no deformity was found on exam, no costochondral pain or discomfort. Heart: Regular rate and rhythm, S1, S2 normal, no murmur, rub or gallop. Back: Symmetric, no curvature, ROM normal, no CVA tenderness. Abdomen: Soft with slight tenderness in the mid epigastric and right upper quadrant area no rebound or rigidity slight hepatomegaly not able to feel any splenomegaly at this point and very limited amount of ascites. Extremities: Trace edema, her fistula graft in the left side has slight hematoma on the side. Pulses: 2+ and symmetric. Skin: Skin color, texture, tugor normal, no rashes or lesions. Neurologic: Alert oriented x3 cranial nerves II through XII intact, no motor deficit, no abnormal balance or gait. ASSESSMENT AND PLAN: _Postcardiac arrest not a clear etiology could be PEA or arrhythmia or could be aggravation from the ERCP specially with ascending cholangitis but still on Rocephin and Flagyl for. Also there were talk about possibility of her fistula graft being infected waiting for the final culture the meanwhile continue IV antibiotics. _Acute hypoxic respiratory failure: After mechanical ventilation pulse ox is doing much better she is on 2 to 3 L of nasal cannula. _Ventilator dependent respiratory failure: Been off the vent successfully does not require any CPAP or BiPAP continue O2 to keep his pulse ox above 90 percentile. _Bradycardia: Still doing well and stabilized does not require any further attention or medication patient is back in sinus rhythm with some PVCs in between. _End-stage renal disease: Continue dialysis almost on daily basis try to take the extra fluid the patient is still having mild hypotension require vasopressor and slight midodrine. _Infection with? Ascending cholangitis versus fistula graft: Had resolved so far no positive cultures at this point patient was taking oral vancomycin and cefepime She is only on ceftriaxone 2 g daily. And still on metronidazole 500 mg IV every 8 which can be switched to oral by the time patient is discharged. _Obstructive common duct with gallstone post 3 stone extracted via ERCP along with sphincterectomy. Has stable after the complication immediately have been with the procedure. _Acute on subacute pancreatitis now retrospectively This is a result of gallstone passed into the common duct and blocked the pancreatic duct causing pancreatitis. Fortunately pancreatitis is resolved at this point but continue to see more evidence of common duct stone. _Gallstone without any acute cholecystitis: With the possibility of possible common duct stone passing black the pancreatic duct causing subacute pancreatitis patient will remain on antibiotic for treating this? Of ascending cholangitis till infection is clear out till the gallbladder is out. Again after taking her gallbladder out doing an MRCP is showing some common duct stone. ERCP will be needed to extract the stone. _gallbladder dyskinesia with recurrent symptoms of gallstone: Post laparoscopic cholecystectomy successful except still have some stone in the common duct. _Elevated liver function test again following surgery: Post 3 stent removed with ERCP we will repeat liver function test again. _Hypertension: For patient to be maintained on medication was doing midodrine before now the blood pressure being low still on vasopressor with Levophed. _Hypothyroidism: Continue levothyroxine 225 mcg daily on Saturday the rest of the week is on 50 mcg. _Type 2 diabetes: Blood sugar has been low will hold off on long-acting insulin keep patient on Accu-Chek with sliding scale coverage only for the next 24 hours. _Chronic anemia: Iron deficiency from end-stage renal disease continue to watch hemoglobin and iron level continue Procrit. Prognosis: Much better and still at this point. Discharge planning: Patient hopefully will be discharged to shelter tomorrow. Objective - Vital Signs Vital signs: Vital Signs Temp 98.5 F 06/14/23 03:34 Pulse 52 L 06/14/23 03:34 Resp 18 06/14/23 03:34 BP 105/53 06/14/23 03:34 Pulse Ox 93 L 06/14/23 03:34 FiO2 40 06/11/23 19:30 Intake & Output 06/13/23 06/13/23 06/14/23 06:59 18:59 06:59 Intake Total 580 Output Total 0 2900 Balance 0 -2320 Weight 144.5 kg 144.5 kg 143 kg Intake: Oral 180 Hemodialysis 400 Output: Urine 0 Hemodialysis 2900 Other: Voiding Method Toilet Toilet # Voids 0 # Bowel Movements 0 ABP, PAP, CO, CI - Last Documented Arterial Blood Pressure 108/54 - Labs CBC & Chem 7: 06/14/23 10:54 06/14/23 10:54 Labs: Abnormal Lab Results - Last 24 Hours (Table) 06/13/23 06/13/23 06/13/23 Range/Units 06:21 08:55 09:23 RBC 2.28 L (3.80-5.40) m/uL Hgb 7.8 L (11.4-16.0) gm/dL Hct 24.6 L (34.0-46.0) % MCV 107.8 H (80.0-100.0) fL RDW 17.4 H (11.5-15.5) % Plt Count 149 L (150-450) k/uL Macrocytosis Marked A Sodium 130 L (137-145) mmol/L Chloride 95 L (98-107) mmol/L Carbon Dioxide 20 L (22-30) mmol/L BUN 29 H (7-17) mg/dL Creatinine 5.44 H (0.52-1.04) mg/dL Glucose 143 H (74-99) mg/dL POC Glucose (mg/dL) 147 H (70-110) mg/dL Total Bilirubin 2.1 H (0.2-1.3) mg/dL AST 62 H (14-36) U/L ALT 37 H (4-34) U/L Alkaline Phosphatase 577 H (38-126) U/L Total Protein 6.1 L (6.3-8.2) g/dL Albumin 2.5 L (3.5-5.0) g/dL 06/13/23 06/13/23 06/13/23 Range/Units 12:03 18:05 23:59 RBC (3.80-5.40) m/uL Hgb (11.4-16.0) gm/dL Hct (34.0-46.0) % MCV (80.0-100.0) fL RDW (11.5-15.5) % Plt Count (150-450) k/uL Macrocytosis Sodium (137-145) mmol/L Chloride (98-107) mmol/L Carbon Dioxide (22-30) mmol/L BUN (7-17) mg/dL Creatinine (0.52-1.04) mg/dL Glucose (74-99) mg/dL POC Glucose (mg/dL) 117 H 156 H 160 H (70-110) mg/dL Total Bilirubin (0.2-1.3) mg/dL AST (14-36) U/L ALT (4-34) U/L Alkaline Phosphatase (38-126) U/L Total Protein (6.3-8.2) g/dL Albumin (3.5-5.0) g/dL Microbiology - Last 24 Hours (Table) 06/11/23 13:15 Blood Culture - Preliminary Blood 06/10/23 12:55 Blood Culture - Preliminary Blood
--- NOTE | 2023-06-15 06:04 | P.DS ---
Providers Date of admission: 05/30/23 23:45 Attending physician: aRh Elder Consults: 05/31/23 00:01 Consult Physician Urgent Consulting Provider: [facility] Consult Reason/Comments: CHF vs fluid overload Do you want consulting provider notified?: Yes Consult Physician Urgent Consulting Provider: Mora Poe Consult Reason/Comments: N/V/D, Hx biliary hyperkinesia worsening lfts Do you want consulting provider notified?: Yes 05/31/23 00:05 Consult Physician Urgent Consulting Provider: Bin Stevens Consult Reason/Comments: ESRD Do you want consulting provider notified?: Yes 05/31/23 07:36 Consult Physician Urgent Consulting Provider: Moreno Andrews Consult Reason/Comments: Cholelithiasis, transaminitis, nausea vomiting Do you want consulting provider notified?: Yes 06/07/23 14:22 Consult Physician Urgent Consulting Provider: Chely Knutson Consult Reason/Comments: ICU management Do you want consulting provider notified?: Already Contacted 06/07/23 15:23 Consult Physician Routine Consulting Provider: Jovan Clayton Consult Reason/Comments: Post Arrest Do you want consulting provider notified?: Already Contacted 06/10/23 10:15 Consult Physician Urgent Consulting Provider: Nilda Velazco Consult Reason/Comments: drainage from hd shunt site Do you want consulting provider notified?: Already Contacted Primary care physician: Stated None Hospital Course: HISTORY OF PRESENT ILLNESS: 68-year-old female 89 office patient who was hospitalized recently at [facility] for abscess and infected armpit area with slight recurrent abdominal discomfort with gallbladder dyskinesia at the time. Patient has end-stage renal disease on hemodialysis 3 times a week also has known to have type 2 diabetes, obstructive sleep apnea, hypertension, hyperlipidemia, hypothyroidism, she brought to the emergency department because of intractable nausea vomiting and diarrhea could not complete dialysis yesterday with worsening fever and chills with abdominal distention without any significant chest pain no bloody stool. Also had infiltrate her fistula which the reason why here hemodialysis was stopped early. With her current symptoms and the significant abnormal liver function test from her last hospitalization which patient was study in detail and found to have biliary hypokinesia via HIDA scan done last month. Patient liver function test this time came back with total bilirubin of 1.9 with AST of 414 and ALT 154 with alkaline phosphatase 224 also lipase of 315 with amylase of 49 which make the diagnosis of subacute pancreatitis as well. Also she continued to have significant anemia with hemoglobin of 8.1 platelet count 1 65,000 patient creatinine was 6.5 with BUN of 39. Patient was seen and eval uated at the emergency department with above complaint COVID influenza and RSV were negative, CT of the abdomen and pelvis was performed again this time and showed no bowel obstruction with no acute finding identified to the amount of patient's symptoms of the pancreas visualized to be fine with small but prominent calcification on the gallbladder as a gallstone with no surrounding ill-defined fluid and fat stranding. Gallbladder ultrasound was performed again as well and showed hepatomegaly with heterogeneous hyper echoic appearance of the liver suggestive of diffuse fatty infiltrate with hepatocellular disease with no adjacent ascites, gallstones redemonstrated without ultrasound evidence of acute cholecystitis. Patient was hospitalized and consult at this point gastroenterology for her recurrent symptoms with nausea and vomiting to conclude the possibility of gallbladder and gallstone with abnormal liver function test. And also to help to make decision whether her gallbladder should be removed or not. Cardiology consultation for cardiology clearance which patient has no history of cardiac disease no change on her EKG at this point or any change in cardiac enzymes. Nephrology consultation was requested to continue hemodialysis. Also request consult of vascular for her fistula. 06/03/2023: Patient was evaluated through the weekend by cardiology, general surgery, nephrology. Was continued on hemodialysis, also continue on IV antibiotic with Rocephin and Flagyl due to slight concern of leukocytosis. 3 did not have any increased nausea or vomiting no diarrhea, liver function test still slightly bit elevated. Cardiology evaluated patient ordered an echocardiogram and and furthermore decided to do a nuclear stress test before clearing her for surgery. Nuclear stress test scheduled this morning if patient goes through with no problem she will be going for her cholecystectomy as an extent. 06/04/2023: Laboratory values showed slight increase in alkaline phosphatase along with total bilirubin make the possibility of having obstruction of the common bile with stone or other is much higher. Delay patient discharge at this point and should go for an MRCP initially if there is any finding consistent with stone or blockage of the common duct she might need to go for an ERCP to extract stone and stent the area. Will delay discharge till this is done and cleared in the meanwhile repeat labs again tomorrow. Patient hemodialysis days today which we will continue to do as an inpatient. 06/05/2023: Patient MRCP came back with several area of calcification in the common duct consistent with cholelithiasis. Patient will be seen gastroenterology for ERCP probably to extract the stone and probably do stent in the common duct. 06/06/2023: After finishing the MRCP and finding more calcification and possibly stone across the common duct patient liver enzymes continue to be elevated total bilirubin still at 2.8 right alk phos 541 AST 59 ALT 62, specially with the current findings will require to go for an ERCP and possible required to extract the stone and put a stent in the common duct. Apparently gastroenterology are planning to do this procedure on Saturday. Meanwhile patient is asymptomatic continue clear liquid diet and advance gradually and dialysis will be done today as well. 06/07/2023: Patient ended up going for her ERCP 3 stones were extracted through the procedure but shortly after procedure she coded and required resuscitation lasted for over a few minutes after giving her atropine patient pulse rate returned but she was intubated and transferred to the ICU at this point. Patient has been resting in the ICU after the current complication, family apparently were updated by gastroenterology along with exercise instruct. Continue to do the complication currently patient is not conscious but resting comfortably in the ICU. 06/08/2023: Patient remain in the ICU on mechanical ventilation, still on vasopressor, she will be going for dialysis today. Her level of responsiveness still limited. Labs today with hemoglobin is 8.3 liver function test were not done will add it to the lab done today. She is still seen pulmonary and cardiology she is still quite hypotensive with pulse rate is down remain on Levophed at this point try to keep her blood pressure systolic above 100. 06/09/2023: She is still intubated on mechanical ventilation she is fluid overload still on vasopressor that she is awake alert will be hopefully extubated tomorrow with her fluid overload will be on hemodialysis today which will help some. Her laboratory value with hemoglobin is 8.4 white blood cell 9.0 ABG still showing blood patient had quite with respiratory alkalosis. Also still required a smaller dose of vasopressor. Will initiate feeding via NG tube today. 06/10/2023: Patient remain in the ICU on mechanical ventilation and still on mild sedation on vasopressor with Levophed, she will be going on ultrafiltration on dialysis today repeat another 1 tomorrow on backing off on sedation she is responding sound but she still require sedation at this point and she is not ready to be extubated yet. Pulmonary Dr. Anguiano keeping her on assist control rate of 16 with volume of 400 FiO2 of 35 percentile with PEEP of 5 still on propofol at 35 mcg/min still receiving tube feeding at testing today with hem oglobin 8.4 creatinine 6.49 chest x-ray showed worsening infiltrate/pneumonia bilateral space disease. Will continue antibiotics with Rocephin and Flagyl continue enteral feeding prior to advance it continue sedation at this point she is not ready to be extubated today. 06/11/2023: She is remain on mechanical ventilation on a smaller dose of vasopressor is having dialysis today blood pressure still dropping down around dialysis requiring midodrine pulmonary try to wean her off vasopressor and try to extubate. Sputum culture apparently was positive for candidiasis infectious disease and probably have her initiate fluconazole. Still trying to extubate the patient still having quite a bit of fluid overload at this point. Hemoglobin of 8.2 does not require any blood transfusion. She still been treated with wide spectrum antibiotic with Rocephin and vancomycin, still continuous enteral feeding as well. Mostly medication she was on orally with been done through the NG tube. 06/12/2023: She is much better she was extubated around 4:00 in the afternoon yesterday successfully she is going on dialysis today, patient might be able to leave the ICU, she is off vasopressors at this point, speech will evaluate patient and hopefully will initiate diet today. Her hypoxia is much better requiring nasal cannula 2 to 3 L only. Will continue antibiotics for now her central line in the groin area will be taking out patient will have probably PICC line by the end of the day today. Will consult on whether she will have her AV fistula infected or not there is no cyanosis erythema swelling or problem at this point blood culture still pending continue to see infectious disease, patient remain on vancomycin. 06/13/2023: Patient is out of the ICU has been doing well she is on 2 to 3 L of O2 to keep pulse ox above 90 percentile, she becomes slightly bit bradycardic with pulse rate running in the 50s, EKG done today she is not on any suppressive agent for beta-mark at this point. Continue to have severe debility with generalized weakness. Patient be doing dialysis today, continue IV antibiotic she will be having PICC line today her central line from the right groin area was taking out before she left the ICU yesterday. Reactivate PT and OT today and request social organization professor to check into patient's status to see if she is in need any help when she is ready to leave the hospital including having to go to inpatient rehab or SNF versus home with home care. 06/14/2023: Patient is doing well doing hemodialysis, has been in the ICU for over 24 hours, there were suspicion for possible AV graft infection with a slight infiltrate and swelling, so far blood cultures negative does not require any further attention for the fistula graft, infectious disease still doing IV antibiotic which are not quite sure patient will require any further antibiotic by the time discharged from the hospital which might do oral antibiotic more than IV. Symptom of nausea and vomiting is much better. Respiratory failure has improved significantly patient currently on O2 only does not require any Pap through the night. Pulmonary are still seeing patient and we hope patient at some point to be on room air about 90 percentile does not require any longer term oxygen. Still doing physical therapy and plan if the patient accepted to go to [facility] to be able to do it as early as later today or tomorrow morning. 06/15/2023: Patient is doing very well, initiate physical therapy she still have significant mobility and balance problem require extra help with PT and OT. She is doing dialysis currently, no Fever or chills her vitals are very stable currently, also lab value with hemoglobin is 8.1 normal white blood cell her liver function test are still slightly bit off but her bilirubin is down compared to before having to remove the stone. Blood sugar stabilized as well in the 100. Patient was accepted to go to rehab at [facility]. REVIEW OF SYSTEMS: CONSTITUTIONAL: Sedated on mechanical ventilation.. EYES: No icterus sclerae, no conjunctivitis. EARS, NOSE, MOUTH, THROAT, and FACE: No sore throat, lymphadenopathy, carotid bruits or deformity. RESPIRATORY: Slight shortness of breath no cough or wheezes.. CARDIOVASCULAR: Positive PND orthopnea palpitation no angina.. GASTROINTESTINAL: Positive abdominal pain with nausea vomiting diarrhea no constipation no acute gastrointestinal bleed no distention or masses.. GENITOURINARY: Decreased urine output she is on hemodialysis.. INTEGUMENT/BREAST: Negative for any muscular injury with mild osteoarthritis.. HEMATOLOGIC/LYMPHATIC: Chronic anemia and hematoma around the fistula graft.. MUSCULOSKELTAL: Negative for Myalgia or arthralgia. NEURLOGICAL: No LOC, Sz or syncope, blurred vision dizziness or abnormality.. BEHAVIORAL/PSYCH: Negative. ENDOCRINE: Negative. PHYSICAL EXAMINATION: General Appearance: Sedated on mechanical ventilation with the ET tube and NG tube are in.. Neck HEENT: Supple, no lymphadenopathy, no thyroid enlargement, no carotid bruits. Lungs: Positive fine rhonchi in the bases with crackles mostly limited area on the right side no wheezes. Chest Wall: Decreased expansion with deep inspiration no tenderness and no deformity was found on exam, no costochondral pain or discomfort. Heart: Regular rate and rhythm, S1, S2 normal, no murmur, rub or gallop. Back: Symmetric, no curvature, ROM normal, no CVA tenderness. Abdomen: Soft with slight tenderness in the mid epigastric and right upper quadrant area no rebound or rigidity slight hepatomegaly not able to feel any splenomegaly at this point and very limited amount of ascites. Extremities: Trace edema, her fistula graft in the left side has slight hematoma on the side. Pulses: 2+ and symmetric. Skin: Skin color, texture, tugor normal, no rashes or lesions. Neurologic: Alert oriented x3 cranial nerves II through XII intact, no motor deficit, no abnormal balance or gait. ASSESSMENT AND PLAN: _Postcardiac arrest not a clear etiology could be PEA or arrhythmia or could be aggravation from the ERCP specially with ascending cholangitis but still on Rocephin and Flagyl for. Also there were talk about possibility of her fistula graft being infected waiting for the final culture the meanwhile continue IV antibiotics. _Acute hypoxic respiratory failure: After mechanical ventilation pulse ox is doing much better she is on 2 to 3 L of nasal cannula. _Ventilator dependent respiratory failure: Been off the vent successfully does not require any CPAP or BiPAP continue O2 to keep his pulse ox above 90 percentile. _Bradycardia: Still doing well and stabilized does not require any further attention or medication patient is back in sinus rhythm with some PVCs in between. _End-stage renal disease: Continue dialysis almost on daily basis try to take the extra fluid the patient is still having mild hypotension require vasopressor and slight midodrine. _Infection with? Ascending cholangitis versus fistula graft: Had resolved so far no positive cultures at this point patient was taking oral vancomycin and cefepime She is only on ceftriaxone 2 g daily. And still on metronidazole 500 mg IV every 8 which can be switched to oral by the time patient is discharged. _Obstructive common duct with gallstone post 3 stone extracted via ERCP along with sphincterectomy. Has stable after the complication immediately have been with the procedure. _Acute on subacute pancreatitis now retrospectively This is a result of gallstone passed into the common duct and blocked the pancreatic duct causing pancreatitis. Fortunately pancreatitis is resolved at this point but continue to see more evidence of common duct stone. _Gallstone without any acute cholecystitis: With the possibility of possible common duct stone passing black the pancreatic duct causing subacute pancreatitis patient will remain on antibiotic for treating this? Of ascending cholangitis till infection is clear out till the gallbladder is out. Again after taking her gallbladder out doing an MRCP is showing some common duct stone. ERCP will be needed to extract the stone. _gallbladder dyskinesia with recurrent symptoms of gallstone: Post laparoscopic cholecystectomy successful except still have some stone in the common duct. _Elevated liver function test again following surgery: Post 3 stent removed with ERCP we will repeat liver function test again. _Hypertension: For patient to be maintained on medication was doing midodrine before now the blood pressure being low still on vasopressor with Levophed. _Hypothyroidism: Continue levothyroxine 225 mcg daily on Saturday the rest of the week is on 50 mcg. _Type 2 diabetes: Blood sugar has been low will hold off on long-acting insulin keep patient on Accu-Chek with sliding scale coverage only for the next 24 h ours. _Chronic anemia: Iron deficiency from end-stage renal disease continue to watch hemoglobin and iron level continue Procrit. Prognosis: Much better and still at this point. Discharge planning: Patient hopefully will be discharged to [facility] today. Hospital course:Patient originally admitted to the hospital on 06/02/2023 because of intractable nausea vomiting with diarrhea has been more symptomatic could not complete dialysis cath running fever and chills with abdominal distention. Patient previous admission was diagnosed with biliary hypokinesia to HIDA scan the gallbladder originally on ultrasound did not show any existing stones. In admission this time patient was diagnosed also with acute pancreatitis and again most likely from common duct stone could not be seen with testing. Her CAT scan and ultrasound this time shows more acute and subacute Marija cystitis the patient was hospitalized to see gastroenterology along with general surgery, infectious disease, and nephrology. Decision was was to have patient go for cholecystectomy before her procedure was requested to have cardiac clearance patient ended up having stress test and echocardiogram did not show any major abnormality. Ended up going for cholecystectomy successfully on 06/03/2023. Following her surgery patient total bilirubin climb up a little bit and continue to have slight discomfort she ended up going for MRCP came back with possibility of common duct stone. Gastroenterology was consulted at this point patient ended up going for an ERCP on 06/07/2023 with 3 stone found in the common duct and the been extracted successfully. Shortly after her procedure patient coded with severe respiratory distress hypoxia and pulseless pulse. Resuscitation was initiated and patient regained pulse rate into minutes she was started on Levophed and placed on mechanical ventilation and admitted to the ICU. Patient was seen pulmonary/critical care and continue supportive management with the vent all along till 06/11/2023 for was extubated successfully. Continue hemodialysis on regular basis at this point her AV fistula graft still have slight suspicion for infection all her culture is negative originally she had sputum culture was positive on the for yeast and Marla not albicans space was treated with Diflucan or fluconazole. Patient discharged out of the ICU continue to improve gradually start PT OT and has been doing that well patient hopefully will be discharged today 06/15/2023 to [facility] rehab will switch her IV antibiotics to Augmentin and Flagyl for 7 days only. Pain is well-controlled, patient oxygenation is minimally supportive at this point and she is doing well. Time spent on discharge patient was over 35 minutes. Patient Condition at Discharge: Fair Plan - Discharge Summary Discharge Rx Participant: No New Discharge Prescriptions: New metroNIDAZOLE [Flagyl] 250 mg PO TID #21 tab Darbepoetin Duncan [Aranesp] 40 mcg SQ Q7D each Amoxic-Pot Clav 500-125 mg [Augmentin 500-125 mg] 1 tab PO Q12HR #14 tab Ipratropium-Albuterol Nebulize [Duoneb 0.5 mg-3 mg/3 ml Soln] 3 ml INHALATION RT-QID each metroNIDAZOLE [Flagyl] 250 mg PO TID #21 tab INSULIN ASPART (NovoLOG) [NovoLOG (formulary)] 0 unit SQ Q6HR each HYDROcodone/APAP 5-325MG [Keaton 5-325] 1 each PO Q4HR PRN #20 tab PRN Reason: Pain Budesonide [Pulmicort] 0.5 mg INHALATION RT-BID ml Continue Levothyroxine Sodium [Synthroid] 150 mcg PO MOTUWETHFR Insulin Lispro [humaLOG Kwikpen] 22 unit SQ TID-W/MEALS Insulin Glargine,Hum.rec.anlog [Lantus Solostar Pen] 32 units SQ BID Sevelamer [Renvela] 1,600 mg PO TID-W/MEALS Midodrine [ProAmatine] 10 mg PO TID PRN PRN Reason: Blood Pressure - Low Pantoprazole Sodium [Protonix] 20 mg PO DAILY Levothyroxine Sodium [Synthroid] 225 mcg PO SUSA Simvastatin [Zocor] 40 mg PO HS traZODone HCL [Desyrel] 100 mg PO HS PRN PRN Reason: Insomnia Discontinued Aspirin 325 mg PO DAILY@1600 carvediloL 25 mg PO BID Nephro-Nav 1 cap PO DAILY@1600 Discharge Medication List Levothyroxine Sodium [Synthroid] 150 mcg PO MOTUWETHFR 03/25/20 [History] Levothyroxine Sodium [Synthroid] 225 mcg PO SUSA 12/20/21 [History] Insulin Glargine,Hum.rec.anlog [Lantus Solostar Pen] 32 units SQ BID 07/21/22 [History] Insulin Lispro [humaLOG Kwikpen] 22 unit SQ TID-W/MEALS 07/21/22 [History] Sevelamer [Renvela] 1,600 mg PO TID-W/MEALS 10/17/22 [History] Simvastatin [Zocor] 40 mg PO HS 10/17/22 [History] Midodrine [ProAmatine] 10 mg PO TID PRN 05/31/23 [History] Pantoprazole Sodium [Protonix] 20 mg PO DAILY 05/31/23 [History] traZODone HCL [Desyrel] 100 mg PO HS PRN 05/31/23 [History] HYDROcodone/APAP 5-325MG [Keaton 5-325] 1 each PO Q4HR PRN #20 tab 06/04/23 [Rx] metroNIDAZOLE [Flagyl] 250 mg PO TID #21 tab 06/04/23 [Rx] Amoxic-Pot Clav 500-125 mg [Augmentin 500-125 mg] 1 tab PO Q12HR #14 tab 06/15/23 [Rx] Budesonide [Pulmicort] 0.5 mg INHALATION RT-BID ml 06/15/23 [Rx] Darbepoetin Duncan [Aranesp] 40 mcg SQ Q7D each 06/15/23 [Rx] INSULIN ASPART (NovoLOG) [NovoLOG (formulary)] 0 unit SQ Q6HR each 06/15/23 [Rx] Ipratropium-Albuterol Nebulize [Duoneb 0.5 mg-3 mg/3 ml Soln] 3 ml INHALATION RT-QID each 06/15/23 [Rx] metroNIDAZOLE [Flagyl] 250 mg PO TID #21 tab 06/15/23 [Rx] Follow up Appointment(s)/Referral(s): Mariah Melendez MD [STAFF PHYSICIAN] - 1 Week Candelaria Barrera MD [STAFF PHYSICIAN] - 1 Week Mora Poe MD [STAFF PHYSICIAN] - 1 Week None,Stated [Primary Care Provider] - 1-2 days Moreno Andrews MD [STAFF PHYSICIAN] - 1 Week Ambulatory/Diagnostic Orders: Comprehensive Metabolic Panel [LAB.AMB] Time Frame: 06/10/23, Location: None Selected Discharge Disposition: TRANSFER TO SNF/ECF
[2023-06-15 06:20] LABS: Glucose,Whole Blood 198 mg/dL (70-110)
[2023-06-15 11:46] LABS: Glucose,Whole Blood 156 mg/dL (70-110)
--- NOTE | 2023-06-15 11:58 | P.PN ---
Subjective Patient is seen for follow-up for end-stage renal disease. Status post laparoscopic cholecystectomy on 06/03/2023. seen on hemodialysis today. Plans for discharge today post hemodialysis. Tolerating treatment well. Objective - Vital Signs Vital signs: Vital Signs Temp 97.4 F L 06/15/23 08:45 Pulse 53 L 06/15/23 11:17 Resp 15 06/15/23 11:17 BP 125/49 06/15/23 11:17 Pulse Ox 96 06/15/23 11:17 FiO2 40 06/11/23 19:30 Intake & Output 06/14/23 06/15/23 06/15/23 18:59 06:59 18:59 Intake Total 694 Output Total 0 Balance 694 0 Intake: IV 100 NS 0.9% KVO 100 Oral 594 Output: Urine 0 Other: Voiding Method Bedpan Bedpan Bedpan ABP, PAP, CO, CI - Last Documented Arterial Blood Pressure 108/54 - Exam Patient is awake, comfortable, in no acute distress Examination of the heart S1 and S2 Examination of the lungs bilateral breath sounds are heard Abdomen is soft, mildly tender Examination of lower extremities shows no significant edema 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 - Labs CBC & Chem 7: 06/14/23 10:54 06/14/23 10:54 Labs: Abnormal Lab Results - Last 24 Hours (Table) 06/14/23 06/14/23 06/14/23 Range/Units 10:54 10:54 16:50 RBC 2.34 L (3.80-5.40) m/uL Hgb 8.1 L (11.4-16.0) gm/dL Hct 25.9 L (34.0-46.0) % MCV 110.7 H (80.0-100.0) fL RDW 17.4 H (11.5-15.5) % Macrocytosis Marked A Sodium 133 L (137-145) mmol/L BUN 22 H (7-17) mg/dL Creatinine 4.10 H (0.52-1.04) mg/dL Glucose 168 H (74-99) mg/dL POC Glucose (mg/dL) 209 H (70-110) mg/dL Total Bilirubin 2.0 H (0.2-1.3) mg/dL AST 74 H (14-36) U/L ALT 43 H (4-34) U/L Alkaline Phosphatase 613 H (38-126) U/L Albumin 2.7 L (3.5-5.0) g/dL 06/14/23 06/15/23 06/15/23 Range/Units 20:29 06:17 11:45 RBC (3.80-5.40) m/uL Hgb (11.4-16.0) gm/dL Hct (34.0-46.0) % MCV (80.0-100.0) fL RDW (11.5-15.5) % Macrocytosis Sodium (137-145) mmol/L BUN (7-17) mg/dL Creatinine (0.52-1.04) mg/dL Glucose (74-99) mg/dL POC Glucose (mg/dL) 165 H 198 H 156 H (70-110) mg/dL Total Bilirubin (0.2-1.3) mg/dL AST (14-36) U/L ALT (4-34) U/L Alkaline Phosphatase (38-126) U/L Albumin (3.5-5.0) g/dL Microbiology - Last 24 Hours (Table) 06/10/23 12:01 Anaerobic Culture - Final Arm - Right 06/11/23 13:15 Blood Culture - Preliminary Blood Assessment and Plan Assessment: 1. End-stage renal disease maintained on hemodialysis on Saturday schedule via AV graft. 2. Infiltrated AV graft. Vascular surgery consulted. AV graft is currently functioning well. 3. Status post laparoscopic cholecystectomy 06/03/2023 for cholecystitis with cholelithiasis. status post MRCP and ERCP with extraction of 3 small stones. 4. Mild volume overload. 5. Hypotension maintained on midodrine. 6. Diabetes mellitus. 7. Chronic kidney disease mineral bone disease maintained on Renvela. 8. Anemia of chronic kidney disease. Plan: okay for discharge from nephrology standpoint post hemodialysis today.
[2023-06-15 13:43] VITALS: BP 131/51; PULSE 56; RESP 18; TEMP 97.2
--- NOTE | 2023-06-15 14:01 | P.PN ---
Subjective Progress Note Date: 06/15/23 Principal diagnosis: Cardiac arrest This is a 68-year-old female patient was seen in the endoscopy room as the patient was undergoing an ERCP for choledocholithiasis patient also underwent biliary sphincterectomy and balloon extraction of a total of 3 small stones. Noted the patient presented to the hospital approximately a week ago for epigastric pain along with nausea and vomiting and subsequently patient was found to have elevated and in the bilirubin and transaminitis. CAT scan of the abdomen pelvis showed gallstones and the patient underwent a cholecystectomy approximately 2 days ago. The patient continues to have issues with pain and elevation in LFTs. Based on that, the patient underwent an ERCP today. Note that following the procedure, the patient was being flipped around and end-tidal CO2 was found to be extremely low and subsequently the patient was found to be unresponsive. At that time the patient was still intubated. She was blue. She was pulseless. The rhythm could not be established as the patient did not have the leads on her chest. Immediately, CPR was initiated and the patient was given 1 round of epinephrine and subsequently a dose of epinephrine for bradycardia. She received CPR for total of 2 to 3 minutes and subsequently ther e was return of spontaneous circulation and a blood pressure. The patient was kept intubated and patient got transferred to the intensive care unit. She is a morbidly obese female patient who weighs 100 on 144 kg and she has a body mass index of 56.2. I saw the patient in the endoscopy room and I also examined the patient in the ICU. The chest x-ray that was done showed cardiomegaly with mild pulm vessel congestion. He did she was in a good location. Inserted triple- lumen catheter and arterial line on this patient for blood pressure monitoring and hemodynamic support. At this point in time, the patient is normotensive. Blood gas showed a pH of 7.47 with a pCO2 of 35 and a pO2 of 316. This was on FiO2 of 100% with a PEEP of 5 and a total volume of 400 with a rate of 28. Morning c blood work showed a white cell count of 7.5 with a hemoglobin 8.2. Sodium was at 132, serum bicarb was at 23 with a BUN of 31 and a creatinine of 4.5. The patient also had a gamma GT of 331, AST of 80, ALT of 52, alkaline phosphatase of 506 and the patient's bilirubin was at 2.8. Lipase level was at 97. Note that the patient has end-stage renal disease on HD undergoes hemodialysis. The last hemodialysis session was yesterday with a total of 2 L of fluid removed. She also has hypertension, hypothyroidism, diabetes mellitus type 2 and the patient has been maintained on Humalog 22 units with meals and Lantus 23 units twice a day along with a sliding scale coverage. The patient has issues with chronic anemia. No history of any previous cardiac disease to my knowledge. A cardiac stress test was done preoperatively on 06/03/2023 showed no evidence of any reversible ischemia and the patient had an ejection fraction of 40%. Noted the patient surgery was done on 06/03/2023 and the patient underwent a laparoscopic cholecystectomy. Surgical wound site is dry clean and intact at this point in time. On today's evaluation of 06/08/2023, the patient remains intubated on mechanical ventilator. The patient is postcardiac arrest and this was a brief cardiopulmonary arrest as discussed earlier. This morning, the patient is adequately sedated propofol running at 30 mcg/kg/min. IV fluids are currently at KVO. She remains on mechanical ventilator, assist-control mode with rate of 28, tidal volume of 400, FiO2 of 40% with a PEEP of 5. Blood gas shows a pH of 7.52 with a pCO2 of 32 and pO2 of 68. The patient underwent a bout of hemodialysis yesterday with a total of 1 l of ultrafiltration and repeat chest x-ray from today is still showing worsening interstitial edema and the patient has a small right-sided pleural effusion and persistent left retrocardiac opacity consistent with pleural effusion. The patient is going to undergo another session of hemodialysis today. Hemodynamically, the patient is stable and she is on no pressors. IV fluids at KVO. No urine output. The blood work shows an obese, 7.9, hemoglobin is 8.3 and platelet count of 121. Sodium is at 132, BUN is at 37 with a creatinine of 5.7 and his sugar is at 140. Troponin from yesterday was 0.026. The patient remains on Rocephin and Flagyl. The patient is also on 32 units of Levemir insulin twice a day in addition to NovoLog sliding scale coverage. General surgery is on the case. Nephrology on the case. LFTs from today are still pending. On today's evaluation of 06/09/2023, the patient is still intubated on the mechanical ventilator. Chest x-ray still showing pulm edema and bilateral pl eural effusions. The patient underwent hemodialysis yesterday and a total of 4 L of fluid was removed. Making recommendations for another session of hemodialysis today. She remains on norepinephrine 0.04 mcg/kg/min. She is on propofol at 30 mcg/kg/h and she is arousable once of sedation. The patient is on IV fluids at KVO. No urine output. Low-dose norepinephrine is still running. NG tube is in place and output is minimal at this point in time. She is on assist-control mode of mechanical ventilation at rate of 28, tidal volume of 400, FiO2 of 35 % and PEEP of 5, and the blood gas from today shows a pH of 7.56 with a pCO2 of 29 and pO2 of 76. BUN is at 28 with a creatinine of 5.3 and a sodium levels at 133. The white cell count of 9 with a hemoglobin of 8.4 and a platelet count of 135. She is afebrile. Sputum sample is showing Marla albicans. On a separate note, the patient did have episodes of hypoglycemia. She was taken Levemir insulin and this will be placed on hold. She remains n.p.o. for now. Patient was seen today on 06/10/2023, remains intubated and mechanically ventilated. Patient is on assist-control rate of 16 tidal volume 400 FiO2 35% PEEP of 5 ABG showed a pO2 of 117 pCO2 38 pH of 7.40, hence no changes were made today. Vent settings remain the same. Patient is undergoing hemodialysis, still requiring pressors/norepinephrine at 0.09 mcg/kg/min still on propofol at 35 mcg/kg/min patient is receiving tube feeding. She is receiving hemodialysis today and this is scheduled for Saturday and Saturday. Looking back at the note, on 06/06, patient underwent ERCP, and she developed a cardiac arrest. Her initial admission date was on 05/29. When the patient had CPR, she was actually in pulseless electrical activity she did receive CPR epinephrine and atropine. Received CPR for anywhere between 2 to 3 minutes, and there was return of spontaneous circulation and the blood pressure. WBC count today is 9.3 hemoglobin is 8.4. Basic metabolic profile is normal bicarb is 18 BUN is 30, creatinine 6.49 chest x-ray is showing worsening infiltrates/pneumonia. Bilateral airspace disease. today on 06/11/2023, patient remains in the ICU, intubated and mechanically ventilated. Patient is on assist-control rate of 16 tidal volume 400 FiO2 35% PEEP of 5 ABG showed a pO2 of 109 pCO2 38 pH of 7.41 chest x-ray showed cardiomegaly, and bilateral pulmonary edema, underlying pneumonia is not entirely ruled out, patient is being dialyzed. BBC count is 9.6 hemoglobin 8.2 platelets are 115, basic metabolic profile is normal renal profile showed a BUN of 22 creatinine 5.16 total bilirubin is 2.4 alkaline phosphatase 575, sputum cultures positive for Marla species not albicans and not Marla glabrata patient is still on propofol, he is arousable, follows very simple instructions like closing eyes and squeezing hands. She is on propofol at 30 mcg/kg/min still requiring norepinephrine at 0.05 mcg/kg/min she is receiving enteral feeding at 30 cc/h. Antibiotics espino patient is on ceftriaxone and vancomycin Reevaluate today on 06/12/2023 patient remains ICU, I extubated the patient yesterday initially to BiPAP and now to nasal cannula at 2 L. Patient tolerated the extubation well, she is doing much better today she is awake, not in any distress, she is doing fairly well with incentive spirometry, she is not scheduled to have hemodialysis today but she will have 1 tomorrow. In the meantime the patient remains on antibiotics in the form of Flagyl vancomycin and Rocephin, speech therapy to evaluate for possible swallow evaluation, and again the plan is to transfer the patient to a medical surgical floor today. WBC count today is 7.6 hemoglobin is 7.5. Low potassium of 3.6 low sodium of 130 BUN is 20 creatinine 3.85, no chest x-ray was done on this patient today. The patient is seen today June 13, 2023 in follow-up on the selective care unit. She was transferred out of the intensive care unit. She is currently m aintaining good O2 saturations in the 90s on 2 L/min per nasal cannula. Plan is for hemodialysis today. A PICC line has been placed today. White count 6.5. Hemoglobin 7.8. Platelets 149. Sodium 130. Potassium 4.1. Bicarb 20. BUN 29. Creatinine 5.44. Glucose 143. She remains on DuoNeb ventilations, Pulmicort and performing scintillations. Lovenox for DVT prophylaxis. Antibiotics in the form of Flagyl, ceftriaxone and vancomycin. Reevaluate today on 06/14/2023, patient remains on 3 S., doing well, she is actually asymptomatic, no cough no wheezing no shortness of breath.Patient is on room air with O2 sats of 93%, family is at bedside, patient is being considered for placement. WBC count is 5.7 hemoglobin 8.1 basic metabolic profile is normal creatinine 4.10, vancomycin has been discontinued by infectious disease on the case, nephrology is still addressing her hemodialysis patient was reevaluated today on 06/15/23, patient is doing great. Being considered for discharge to rehab today. Patient is sitting in bed, on room air, she is receiving hemodialysis. No cough no wheezing no shortness of breath no chest pain. Objective - Vital Signs Vital signs: Vital Signs Temp 97.2 F L 06/15/23 13:29 Pulse 56 L 06/15/23 13:29 Resp 18 06/15/23 13:29 BP 131/51 06/15/23 13:29 Pulse Ox 96 06/15/23 11:17 FiO2 40 06/11/23 19:30 Intake & Output 06/14/23 06/15/23 06/15/23 18:59 06:59 18:59 Intake Total 694 400 Output Total 0 2400 Balance 694 0 -2000 Intake: IV 100 NS 0.9% KVO 100 Oral 594 Hemodialysis 400 Output: Urine 0 Hemodialysis 2400 Other: Voiding Method Bedpan Bedpan Bedpan ABP, PAP, CO, CI - Last Documented Arterial Blood Pressure 108/54 - Exam General Appearance: Reveals 68-year-old female, on room air Neck HEENT: Supple, no lymphadenopathy, no thyroid enlargement, no carotid br uits. Lungs: Symmetrical chest expansion, good breath sound bilaterally no rhonchi no wheeze Chest Wall: No chest wall deformity, no tenderness. Heart: S1-S2, no S3 gallop. Murmur. Abdomen: Soft nontender no megaly no rebound, suspect small ascites. Extremities: 1+ bipedal edema. Pulses: Distal pulses bilaterally slightly diminished. Skin: Skin color, texture, tugor normal, no rashes or lesions. Neurologic: Awake alert and oriented x 3 no gross focal deficit Psychiatric: Alert oriented x 3, normal mood normal affect normal mental status examination. - Labs CBC & Chem 7: 06/14/23 10:54 06/14/23 10:54 Labs: Abnormal Lab Results - Last 24 Hours (Table) 06/14/23 06/14/23 06/15/23 Range/Units 16:50 20:29 06:17 POC Glucose (mg/dL) 209 H 165 H 198 H (70-110) mg/dL 06/15/23 Range/Units 11:45 POC Glucose (mg/dL) 156 H (70-110) mg/dL Microbiology - Last 24 Hours (Table) 06/10/23 12:01 Anaerobic Culture - Final Arm - Right 06/11/23 13:15 Blood Culture - Preliminary Blood Assessment and Plan Assessment: Impression: Cardiac arrest/PEA status post 1 round of CPR for a total of 2 to 3 minutes Acute hypoxic respiratory failure secondary to above Fluid overload requiring hemodialysis with pulmonary edema and bilateral pleural effusions, patient is on hemodialysis Possible aspiration pneumonia Acute cholecystitis status postcholecystectomy done on 06/03/2023 Choledocholithiasis requiring ERCP done on 06/07/2023 with sphincterectomy and extraction of 3 small stone Morbid obesity Benign essential hypertension Type 2 diabetes, on Levemir and insulin and sliding scale History of hypothyroidism Abnormal liver enzymes secondary to choledocholithiasis possible cholangitis. End-stage renal disease on hemodialysis Anemia of chronic disease Recommendation: The present supportive care measures Cleared for discharge from my perspective if cleared by other consultants patient will be going to [facility] Time with Patient: Less than 30
--- NOTE | 2023-06-16 14:59 | P.PN ---
Subjective Progress Note Date: 06/15/23 Principal diagnosis: Reason for follow-up is possible right upper extremity AV graft infection Patient is a 68-year-old female with multiple comorbidity initially presented to the hospital with nausea vomiting diagnosed with cholecystitis status post laparoscopic ostectomy followed by ERCP sphincterotomy and balloon stone extraction did have a cardiac arrest requiring elicitation and subsequent admission to ICU patient did have a history of renal failure on dialysis through the right upper extremity AV graft and noted to have some drainage prompting this consultation. On today's visit that is 06/15/2023,the patient denies any fever or any chills, patient is breathing comfortably on room air, the patient denies chest pain shortness of breath and no significant cough, patient denies abdominal pain, no nausea vomiting or diarrhea. Denies pain to the right upper arm site of the fistula. No new labs has been repeated today culture has been negative Objective - Vital Signs Vital signs: Vital Signs Temp 97.4 F L 06/15/23 08:45 Pulse 53 L 06/15/23 11:17 Resp 15 06/15/23 11:17 BP 131/81 06/15/23 13:04 Pulse Ox 96 06/15/23 11:17 FiO2 40 06/11/23 19:30 Intake & Output 06/14/23 06/15/23 06/15/23 18:59 06:59 18:59 Intake Total 694 Output Total 0 Balance 694 0 Intake: IV 100 NS 0.9% KVO 100 Oral 594 Output: Urine 0 Other: Voiding Method Bedpan Bedpan Bedpan ABP, PAP, CO, CI - Last Documented Arterial Blood Pressure 108/54 - Exam GENERAL DESCRIPTION: An elderly female lying in bed in no distress RESPIRATORY SYSTEM: Unlabored breathing , decreased breath sounds at bases HEART: S1 S2 regular rate and rhythm , ABDOMEN: Soft , no tenderness EXTREMITIES: Right upper extremity AV graft site with bruising some swelling no redness - Labs CBC & Chem 7: 06/14/23 10:54 06/14/23 10:54 Labs: Abnormal Lab Results - Last 24 Hours (Table) 06/14/23 06/14/23 06/14/23 Range/Units 10:54 10:54 16:50 RBC 2.34 L (3.80-5.40) m/uL Hgb 8.1 L (11.4-16.0) gm/dL Hct 25.9 L (34.0-46.0) % MCV 110.7 H (80.0-100.0) fL RDW 17.4 H (11.5-15.5) % Macrocytosis Marked A Sodium 133 L (137-145) mmol/L BUN 22 H (7-17) mg/dL Creatinine 4.10 H (0.52-1.04) mg/dL Glucose 168 H (74-99) mg/dL POC Glucose (mg/dL) 209 H (70-110) mg/dL Total Bilirubin 2.0 H (0.2-1.3) mg/dL AST 74 H (14-36) U/L ALT 43 H (4-34) U/L Alkaline Phosphatase 613 H (38-126) U/L Albumin 2.7 L (3.5-5.0) g/dL 06/14/23 06/15/23 06/15/23 Range/Units 20:29 06:17 11:45 RBC (3.80-5.40) m/uL Hgb (11.4-16.0) gm/dL Hct (34.0-46.0) % MCV (80.0-100.0) fL RDW (11.5-15.5) % Macrocytosis Sodium (137-145) mmol/L BUN (7-17) mg/dL Creatinine (0.52-1.04) mg/dL Glucose (74-99) mg/dL POC Glucose (mg/dL) 165 H 198 H 156 H (70-110) mg/dL Total Bilirubin (0.2-1.3) mg/dL AST (14-36) U/L ALT (4-34) U/L Alkaline Phosphatase (38-126) U/L Albumin (3.5-5.0) g/dL Microbiology - Last 24 Hours (Table) 06/10/23 12:01 Anaerobic Culture - Final Arm - Right 06/11/23 13:15 Blood Culture - Preliminary Blood Assessment and Plan (1) Infection of AV graft for dialysis Status: Acute Code(s): T82.7XXA - INFECT/INFLM REACT D/T OTH CARDI/VASC DEV/IMPLNT/GRFT, INIT SNOMED Code(s): 930938876 Plan: 1patient with a right upper extremity AV graft in this patient with a history of end-stage renal disease on dialysis admission to hospital abdominal pain status postcholecystectomy followed by ERCP with extraction of stones and did have a cardiac arrest admission to the ICU no concerning for drainage from the AV graft possible infection however the patient not running any fever no significant erythema was noticed and did have a normal white count. Could be related to the small bruise she has to the area which may be liquefying and draining through the AV graft puncture hole site 2blood and local cultures remains to be negative making infection of the graft slough to be less likely, patient seem to be doing well off vancomycin PICC line can be discontinued on discharge Dictation was produced using [employer] dictation software. please excuse any grammatical, word or spelling errors. Time with Patient: Less than 30
== END 2023-06-15 13:46 | DRG 417 ==
LOC: EC 18:18 → 3SCARD 23:45 → 4SSUR 06-04 17:54 → 2SICU 06-07 13:22 → 3SCARD 06-13 00:42
PROVIDERS: ADMIT Internal Medicine Geriatric Medicine; ATTEND Internal Medicine Geriatric Medicine
PROC: 5A1D70Z Performance of Urinary Filtration, Intermittent, Less than 6 Hours Per Day (ICD-10-PCS; 2023-05-31)
PROC: 0FT44ZZ Resection of Gallbladder, Percutaneous Endoscopic Approach (ICD-10-PCS; principal; 2023-06-03 13:25)
PROC: 0FC98ZZ Extirpation of Matter from Common Bile Duct, Via Natural or Artificial Opening Endoscopic (ICD-10-PCS; 2023-06-07)
PROC: 3E043XZ Introduction of Vasopressor into Central Vein, Percutaneous Approach (ICD-10-PCS; 2023-06-07)
PROC: 5A12012 Performance of Cardiac Output, Single, Manual (ICD-10-PCS; 2023-06-07)
PROC: 4A133B1 Monitoring of Arterial Pressure, Peripheral, Percutaneous Approach (ICD-10-PCS; 2023-06-07)
PROC: 06HY33Z Insertion of Infusion Device into Lower Vein, Percutaneous Approach (ICD-10-PCS; 2023-06-07)
PROC: 4A133J1 Monitoring of Arterial Pulse, Peripheral, Percutaneous Approach (ICD-10-PCS; 2023-06-07)
PROC: 03HY32Z Insertion of Monitoring Device into Upper Artery, Percutaneous Approach (ICD-10-PCS; 2023-06-07)
PROC: 0BH17EZ Insertion of Endotracheal Airway into Trachea, Via Natural or Artificial Opening (ICD-10-PCS; 2023-06-07)
PROC: 5A1945Z Respiratory Ventilation, 24-96 Consecutive Hours (ICD-10-PCS; 2023-06-07)
PROC: 3E0G76Z Introduction of Nutritional Substance into Upper GI, Via Natural or Artificial Opening (ICD-10-PCS; 2023-06-09)
PROC: 0DH67UZ Insertion of Feeding Device into Stomach, Via Natural or Artificial Opening (ICD-10-PCS; 2023-06-09)
PROC: 02HV33Z Insertion of Infusion Device into Superior Vena Cava, Percutaneous Approach (ICD-10-PCS; 2023-06-13)
DX: K80.43 Calculus of bile duct with acute cholecystitis with obstruction (principal); A41.9 Sepsis, unspecified organism; I46.9 Cardiac arrest, cause unspecified; J96.01 Acute respiratory failure with hypoxia; I50.23 Acute on chronic systolic (congestive) heart failure; N18.6 End stage renal disease; B37.89 Other sites of candidiasis; E87.1 Hypo-osmolality and hyponatremia; E87.3 Alkalosis; I13.2 Hypertensive heart and chronic kidney disease with heart failure and with stage 5 chronic kidney disease, or end stage renal disease; I42.9 Cardiomyopathy, unspecified; T82.7XXA Infection and inflammatory reaction due to other cardiac and vascular devices, implants and grafts, initial encounter; Z68.43 Body mass index [BMI] 50.0-59.9, adult; K86.1 Other chronic pancreatitis; K76.0 Fatty (change of) liver, not elsewhere classified; D50.9 Iron deficiency anemia, unspecified; D63.1 Anemia in chronic kidney disease; Z99.2 Dependence on renal dialysis; I95.9 Hypotension, unspecified; E03.9 Hypothyroidism, unspecified; E83.9 Disorder of mineral metabolism, unspecified; E11.22 Type 2 diabetes mellitus with diabetic chronic kidney disease; E11.649 Type 2 diabetes mellitus with hypoglycemia without coma; E66.01 Morbid (severe) obesity due to excess calories; E78.5 Hyperlipidemia, unspecified; E86.0 Dehydration; E87.6 Hypokalemia; G47.33 Obstructive sleep apnea (adult) (pediatric); H54.8 Legal blindness, as defined in USA; H57.9 Unspecified disorder of eye and adnexa; I25.2 Old myocardial infarction; Z11.52 Encounter for screening for COVID-19; Z28.311 Partially vaccinated for COVID-19; K21.9 Gastro-esophageal reflux disease without esophagitis; Z86.718 Personal history of other venous thrombosis and embolism; Z79.4 Long term (current) use of insulin; Z79.890 Hormone replacement therapy; Z79.899 Other long term (current) drug therapy; K82.8 Other specified diseases of gallbladder; Y83.2 Surgical operation with anastomosis, bypass or graft as the cause of abnormal reaction of the patient, or of later complication, without mention of misadventure at the time of the procedure; Z79.82 Long term (current) use of aspirin; Z86.73 Personal history of transient ischemic attack (TIA), and cerebral infarction without residual deficits
CPT/HCPCS: 36415; 36573; 43262; 43277; 71045; 71046; 74176; 74181; 74330; 76705; 78452; 80048; 80053; 80202; 82150; 82728; 82805; 82977; 83036; 83540; 83550; 83690; 83735; 83880; 84100; 84132; 84450; 84460; 84484; 85025; 85027; 85610; 85730; 87040; 87070; 87075; 87205; 87636; 88304; 90935; 93017; 93306; 93308; 94002; 94003; 94640; 94660; 94760; 96374; 96375; 99285

== ENCOUNTER 2023-07-16 12:22 | Emergency (ER) | payer MEDICARE, BC ==
--- NOTE | 2023-07-16 12:58 | ED ---
General Adult HPI - General Chief complaint: Weakness Stated complaint: Weakness Time Seen by Provider: 07/16/23 12:29 Source: patient, RN notes reviewed Mode of arrival: EMS Limitations: no limitations - History of Present Illness Initial comments: Patient is a 68-year-old female presenting to the emergency department with general weakness. Patient diagnosed with COVID-19 infection around 4 days ago. Patient has been having symptoms close to 1 week. Patient feels generally weak. Patient did have a mild fall prior to arrival without significant injury. Patient has had decreased oral intake the past few days. Questionable fevers at home. Patient has had mild cough. - Related Data Home Medications Medication Instructions Recorded Confirmed Levothyroxine Sodium [Synthroid] 150 mcg PO MOTUWETHFR 03/25/20 07/16/23 Levothyroxine Sodium [Synthroid] 225 mcg PO SUSA 12/20/21 07/16/23 Insulin Glargine,Hum.rec.anlog 10 - 12 units SQ BID 07/21/22 07/16/23 [Lantus Solostar Pen] Insulin Lispro [humaLOG Kwikpen] 1 - 32 unit SQ TID-W/MEALS 07/21/22 07/16/23 Sevelamer [Renvela] 1,600 mg PO TID-W/MEALS 10/17/22 07/16/23 Simvastatin [Zocor] 40 mg PO HS 10/17/22 07/16/23 Pantoprazole Sodium [Protonix] 20 mg PO DAILY 05/31/23 07/16/23 traZODone HCL [Desyrel] 100 mg PO HS PRN 05/31/23 07/16/23 Folic Acid/Vit B Complex and C 0.8 mg PO DAILY 07/16/23 07/16/23 [Nephro-Nav Tablet] Meclizine [Antivert] 25 mg PO TID PRN 07/16/23 07/16/23 Midodrine HCl [ProAmatine] 10 mg PO TID PRN 07/16/23 07/16/23 carvediloL [Coreg] 25 mg PO BID 07/16/23 07/16/23 Allergies Allergy/AdvReac Type Severity Reaction Status Date / Time No Known Allergies Allergy Verified 07/16/23 14:57 Review of Systems ROS Statement: Those systems with pertinent positive or pertinent negative responses have been documented in the HPI. ROS Other: All systems not noted in ROS Statement are negative. Constitutional: Reports: fever, chills Eyes: Denies: eye pain ENT: Denies: ear pain Respiratory: Reports: cough. 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 6 years. Last Myocardial Infarction Date:: Unknown History of Any Multi-Drug Resistant Organisms: None Reported Past Surgical History: Section, Hysterectomy, Orthopedic Surgery Additional Past Surgical History / Comment(s): Had open thrombectomy left axillary graft on 12-21-21,BONE TUMOR REMOVED FROM LT FINGER AND REPLACED WITH BONE FROM ELBOW. DIALYSIS FISTULA rt arm-old, lasik rt eye surgery, right upper ext. left AV graft revision 03-31-20 Past Anesthesia/Blood Transfusion Reactions: Postoperative Nausea & Vomiting (PONV) Past Psychological History: No Psychological Hx Reported Smoking Status: Never smoker Past Alcohol Use History: None Reported Past Drug Use History: None Reported - Past Family History Mother Family Medical History: Cancer Brother(s) Family Medical History: Cancer General Exam Limitations: no limitations General appearance: alert, in no apparent distress Head exam: Present: atraumatic Eye exam: Present: normal appearance ENT exam: Present: normal oropharynx Neck exam: Present: normal inspection Respiratory exam: Present: normal lung sounds bilaterally Cardiovascular Exam: Present: regular rate, normal rhythm GI/Abdominal exam: Present: soft. Absent: tenderness Extremities exam: Present: normal inspection, full ROM, other (Dialysis graft right upper extremity with positive thrill). Absent: tenderness Neurological exam: Present: alert. Absent: motor sensory deficit Psychiatric exam: Present: normal affect, normal mood Skin exam: Present: normal color Course Vital Signs 07/16/23 07/16/23 12:26 15:02 Temperature 97.3 F L Pulse Rate 64 60 Respiratory 20 18 Rate Blood Pressure 111/61 122/73 O2 Sat by Pulse 95 98 Oximetry EKG Findings - EKG Results: EKG: interpreted by ERMD (Inferior and lateral small Q waves.), sinus rhythm, normal axis, normal ST/T EKG shows: bradycardia Medical Decision Making - Medical Decision Making Was pt. sent in by a medical professional or institution (, PA, CLIENT TECHNICAL SPECIALIST, urgent care, hospital, or skilled nursing...) When possible be specific @ -Patient was sent over from dialysis Did you speak to anyone other than the patient for history (EMS, parent, family, police, friend...)? What history was obtained from this source @ -No Did you review nursing and triage notes (agree or disagree)? Why? @ -I reviewed and agree with nursing and triage notes Were old charts reviewed (outside hosp., previous admission, EMS record, old EKG, old radiological studies, urgent care reports/EKG's, skilled nursing records)? Report findings @ -Previous x-rays and admission reviewed. Patient does have history of cardiomegaly and CHF Differential Diagnosis (chest pain, altered mental status, abdominal pain women, abdominal pain men, vaginal bleeding, weakness, fever, dyspnea, syncope, headache, dizziness, GI bleed, back pain, seizure, CVA, palpatations, mental health, musculoskeletal)? @ -Differential Weakness: Hypoglycemia, shock, sepsis, hyponatremia, anemia, infection, NM, ETOH, adverse medicine reaction, overdose, stroke, this is not meant to be an all-inclusive list. EKG interpreted by me (3pts min.). @ -As above X-rays interpreted by me (1pt min.). @ -Chest x-ray does show some cardiomegaly and increased interstitial changes. CT interpreted by me (1pt min.). @ -None done U/S interpreted by me (1pt. min.). @ -None done What testing was considered but not performed or refused? (CT, X-rays, U/S, labs)? Why? @ -None What meds were considered but not given or refused? Why? @ -None Did you discuss the management of the patient with other professionals (professionals i.e. , SUDHA, CLIENT TECHNICAL SPECIALIST, lab, RT, psych nurse, social work coordinator, braided rug maker, teacher, financial services officer, piano case and bench assembler)? Give summary @ -Case was discussed in detail with Dr. calero who is familiar with his patient. He feels patient can be discharged and managed as an outpatient. Was smoking cessation discussed for >3mins.? @ -No Was critical care preformed (if so, how long)? @ -No Were there social determinants of health that impacted care today? How? (Homelessness, low income, unemployed, alcoholism, drug addiction, transporta tion, low edu. Level, literacy, decrease access to med. care, shelter, rehab)? @ -No Was there de-escalation of care discussed even if they declined (Discuss DNR or withdrawal of care, Hospice)? DNR status @ -No What co-morbidities impacted this encounter? (DM, HTN, Smoking, COPD, CAD, Cancer, CVA, ARF, Chemo, Hep., AIDS, mental health diagnosis, sleep apnea, morbid obesity)? @ -History of renal failure. Recent positive COVID-19 diagnosis Was patient admitted / discharged? Hospital course, mention meds given and route, prescriptions, significant lab abnormalities, going to OR and other pertinent info. @ -Patient reevaluated and resting comfortably in bed. Patient is able to ambulate 100 feet in the emergency department without difficulty. Patient states she does not normally walk any longer than this. Patient presents with generalized weakness and recent COVID-19 infection. Primary care physician is familiar with her and comfortable with discharge home. Patient will be discharged with recommended close follow-up. Undiagnosed new problem with uncertain prognosis? @ -No Drug Therapy requiring intensive monitoring for toxicity (Heparin, Nitro, Insulin, Cardizem)? @ -No Were any procedures done? @ -No Diagnosis/symptom? @ -Weakness, COVID-19 Acute, or Chronic, or Acute on Chronic? @ -Acute, acute Uncomplicated (without systemic symptoms) or Complicated (systemic symptoms)? @ -Default Side effects of treatment? @ -No Exacerbation, Progression, or Severe Exacerbation? @ -No Poses a threat to life or bodily function? How? (Chest pain, USA, NM, pneumonia, PE, COPD, DKA, ARF, appy, cholecystitis, CVA, Diverticulitis, Homicidal, Suicidal, threat to staff... and all critical care pts) @ -No - Lab Data Result diagrams: 04/30/24 13:19 07/16/23 13:19 Lab Results 07/16/23 07/16/23 07/16/23 Range/Units 13:19 13:19 13:19 WBC 15.4 H (3.8-10.6) k/uL RBC 2.68 L (3.80-5.40) m/uL Hgb 9.1 L (11.4-16.0) gm/dL Hct 28.5 L (34.0-46.0) % MCV 106.0 H (80.0-100.0) fL MCH 34.0 (25.0-35.0) pg MCHC 32.1 (31.0-37.0) g/dL RDW 14.1 (11.5-15.5) % Plt Count 234 (150-450) k/uL MPV 9.4 Neutrophils % 82 % Lymphocytes % 13 % Monocytes % 2 % Eosinophils % 2 % Basophils % 0 % Neutrophils # 12.6 H (1.3-7.7) k/uL Lymphocytes # 2.0 (1.0-4.8) k/uL Monocytes # 0.4 (0-1.0) k/uL Eosinophils # 0.3 (0-0.7) k/uL Basophils # 0.1 (0-0.2) k/uL Macrocytosis Moderate Sodium 138 (137-145) mmol/L Potassium 4.0 (3.5-5.1) mmol/L Chloride 99 (98-107) mmol/L Carbon Dioxide 26 (22-30) mmol/L Anion Gap 13 mmol/L BUN 57 H (7-17) mg/dL Creatinine 9.23 H* (0.52-1.04) mg/dL Est GFR (CKD-EPI)AfAm 4 (>60 ml/min/1.73 sqM) Est GFR (CKD-EPI)NonAf 4 (>60 ml/min/1.73 sqM) Glucose 102 H (74-99) mg/dL Calcium 8.7 (8.4-10.2) mg/dL Phosphorus 3.3 (2.5-4.5) mg/dL Magnesium 2.1 (1.6-2.3) mg/dL Total Bilirubin 1.0 (0.2-1.3) mg/dL AST 40 H (14-36) U/L ALT 29 (4-34) U/L Alkaline Phosphatase 203 H (38-126) U/L NT-Pro-B Natriuret Pep 8720 pg/mL Total Protein 6.8 (6.3-8.2) g/dL Albumin 2.9 L (3.5-5.0) g/dL Disposition Clinical Impression: COVID-19, Weakness Disposition: HOME SELF-CARE Condition: Stable Instructions (If sedation given, give patient instructions): Weakness (ED), COVID-19 (Coronavirus Disease 2019) (ED) Additional Instructions: Please follow-up tomorrow for dialysis. Please do follow-up with your primary care physician in the next 1 or 2 days for recheck. Return for increased weakness, difficulty breathing, uncontrolled fevers, worsening or changing symptoms or any other concerns. Is patient prescribed a controlled substance at d/c from ED?: No Referrals: Candelaria Barrera MD [Primary Care Provider] - 1-2 days Time of Disposition: 16:24
[2023-07-16 13:27] LABS: Basophils # (A) 0.1 k/uL (0-0.2); Basophils % (A) 0 %; Eosinophils # (A) 0.3 k/uL (0-0.7); Eosinophils % (A) 2 %; HCT 28.5 % (34.0-46.0); HGB 9.1 gm/dL (11.4-16.0); Lymphocytes % (A) 13 %; MCHC 32.1 g/dL (31.0-37.0); Macrocytosis Moderate; Mean Platelet Volume 9.4; Monocytes # (A) 0.4 k/uL (0-1.0); Monocytes % (A) 2 %; Neutrophils # (A) 12.6 k/uL (1.3-7.7); Neutrophils % (A) 82 %; Platelet Count 234 k/uL (150-450); RBC 2.68 m/uL (3.80-5.40); RDW 14.1 % (11.5-15.5); WBC 15.4 k/uL (3.8-10.6)
[2023-07-16] MEDS: ACETAMINOPHEN TAB 500 MG TAB PO STA (13:30)
[2023-07-16] MEDS: SODIUM CHLORIDE 0.9% 1,000 ML IV STA (13:30)
[2023-07-16 13:39] LABS: ALT 29 U/L (4-34); AST 40 U/L (14-36); African American GFR (CKD) 4 (>60 ml/min/1.73 sqM); Albumin 2.9 g/dL (3.5-5.0); Alkaline Phosphatase 203 U/L (38-126); Anion Gap 13 mmol/L; Blood Urea Nitrogen 57 mg/dL (7-17); Calcium 8.7 mg/dL (8.4-10.2); Carbon Dioxide 26 mmol/L (22-30); Chloride 99 mmol/L (98-107); Glucose 102 mg/dL (74-99); Magnesium 2.1 mg/dL (1.6-2.3); Non-African American GFR(CKD) 4 (>60 ml/min/1.73 sqM); Phosphorus 3.3 mg/dL (2.5-4.5); Sodium 138 mmol/L (137-145); Total Protein 6.8 g/dL (6.3-8.2)
--- NOTE | 2023-07-16 14:23 | XR ---
EXAMINATION TYPE: XR chest 2V DATE OF EXAM: 07/16/2023 2:15 PM CLINICAL INDICATION:Female, 68 years old with history of Weakness; COMPARISON: Chest radiographs from 06/11/2023 TECHNIQUE: XR chest 2V Frontal and lateral views of the chest. FINDINGS: Lungs/Pleura: There is no evidence of pleural effusion, focal consolidation, or pneumothorax. Pulmonary vascularity: Pulmonary vascular congestion. Heart/mediastinum: Cardiomediastinal silhouette is unremarkable. Musculoskeletal: No acute osseous pathology. IMPRESSION: Cardiomegaly and mild pulmonary vascular congestion. Correlate with BNP for congestive heart failure.
[2023-07-16 15:32] VITALS: RESP 18
[2023-07-16 17:32] VITALS: BP 145/76; PULSE 68; TEMP 98.1
== END 2023-07-16 17:05 | disposition home or self-care (01) ==
LOC: EC 12:22
DX: U07.1 COVID-19 (principal); Z99.2 Dependence on renal dialysis; Z86.73 Personal history of transient ischemic attack (TIA), and cerebral infarction without residual deficits
CPT/HCPCS: 36415; 71046; 80053; 83735; 83880; 84100; 85025; 93005; 96360; 96361; 99285

== ENCOUNTER 2023-07-27 18:39 | Inpatient (IN) | payer MEDICARE, BC ==
[2023-07-27] MEDS: SODIUM CHLORIDE 0.9% 1,000 ML IV STA ×2 (19:02→20:00)
[2023-07-27] MEDS: ACETAMINOPHEN TAB 500 MG TAB PO STA (19:03)
[2023-07-27 19:17] LABS: Basophils % (A) 0 %; Eosinophils # (A) 0.1 k/uL (0-0.7); Eosinophils % (A) 1 %; HCT 31.3 % (34.0-46.0); HGB 10.3 gm/dL (11.4-16.0); Lymphocytes # (A) 0.4 k/uL (1.0-4.8); Lymphocytes % (A) 7 %; MCH 34.3 pg (25.0-35.0); MCHC 32.8 g/dL (31.0-37.0); MCV 104.3 fL (80.0-100.0); Macrocytosis Slight; Mean Platelet Volume 9.2; Monocytes # (A) 0.1 k/uL (0-1.0); Monocytes % (A) 1 %; Neutrophils # (A) 5.3 k/uL (1.3-7.7); Neutrophils % (A) 90 %; Platelet Count 220 k/uL (150-450); WBC 5.9 k/uL (3.8-10.6)
[2023-07-27 19:30] LABS: ALT 32 U/L (4-34); AST 75 U/L (14-36); African American GFR (CKD) 12 (>60 ml/min/1.73 sqM); Albumin 3.1 g/dL (3.5-5.0); Alkaline Phosphatase 287 U/L (38-126); Anion Gap 13 mmol/L; Blood Urea Nitrogen 20 mg/dL (7-17); Calcium 8.2 mg/dL (8.4-10.2); Carbon Dioxide 27 mmol/L (22-30); Chloride 94 mmol/L (98-107); Glucose 162 mg/dL (74-99); Magnesium 1.6 mg/dL (1.6-2.3); Non-African American GFR(CKD) 11 (>60 ml/min/1.73 sqM); Potassium 3.8 mmol/L (3.5-5.1); Sodium 134 mmol/L (137-145); Total Bilirubin 1.4 mg/dL (0.2-1.3); Total Protein 7.6 g/dL (6.3-8.2)
--- NOTE | 2023-07-27 19:40 | ED ---
SOB HPI - General Chief Complaint: Shortness of Breath Stated Complaint: SEBLE Time Seen by Provider: 07/27/23 19:39 Source: patient, EMS, RN notes reviewed Mode of arrival: EMS Limitations: no limitations - History of Present Illness Initial Comments: 68 year old female presenting to the ER with a chief complaint of shortness of breath. Patient reports for the 2 days she has been feeling short of breath and unwell. She is not normally on oxygen at home. She does report she feels the chills and has a mild cough. She also was endorsing nausea and vomiting. She denies any chest pain, abdominal pain, constipation/diarrhea, urinary complaints or peripheral edema. Patient is on dialysis last treatment today. - Related Data Home Medications Medication Instructions Recorded Confirmed Levothyroxine Sodium [Synthroid] 150 mcg PO MOTUWETHFR 03/25/20 07/27/23 Levothyroxine Sodium [Synthroid] 225 mcg PO SUSA 12/20/21 07/27/23 Insulin Glargine,Hum.rec.anlog 33 units SQ BID 07/21/22 07/27/23 [Lantus Solostar Pen] Insulin Lispro [humaLOG Kwikpen] 23 unit SQ AC-TID 07/21/22 07/27/23 Sevelamer [Renvela] 800 - 1,600 mg PO TID-W/MEALS 10/17/22 07/27/23 Simvastatin [Zocor] 40 mg PO HS 10/17/22 07/27/23 Pantoprazole Sodium [Protonix] 20 mg PO DAILY 05/31/23 07/27/23 traZODone HCL [Desyrel] 100 mg PO HS PRN 05/31/23 07/27/23 Folic Acid/Vit B Complex and C 0.8 mg PO HS 07/16/23 07/27/23 [Nephro-Nav Tablet] Midodrine HCl [ProAmatine] 10 mg PO TID PRN 07/16/23 07/27/23 carvediloL [Coreg] 25 mg PO BID 07/16/23 07/27/23 Benzonatate [Tessalon Perles] 100 mg PO TID PRN 07/27/23 07/27/23 Allergies Allergy/AdvReac Type Severity Reaction Status Date / Time No Known Allergies Allergy Verified 07/27/23 19:54 Review of Systems ROS Statement: Those systems with pertinent positive or pertinent negative responses have been documented in the HPI. ROS Other: All systems not noted in ROS Statement are negative. 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 6 years. Last Myocardial Infarction Date:: Unknown History of Any Multi-Drug Resistant Organisms: None Reported Past Surgical History: Section, Hysterectomy, Orthopedic Surgery Additional Past Surgical History / Comment(s): Had open thrombectomy left axillary graft on 12-21-21,BONE TUMOR REMOVED FROM LT FINGER AND REPLACED WITH BONE FROM ELBOW. DIALYSIS FISTULA rt arm-old, lasik rt eye surgery, right upper ext. left AV graft revision 03-31-20 Past Anesthesia/Blood Transfusion Reactions: Postoperative Nausea & Vomiting (PONV) Past Psychological History: No Psychological Hx Reported Smoking Status: Never smoker Past Alcohol Use History: None Reported Past Drug Use History: None Reported - Past Family History Mother Family Medical History: Cancer Brother(s) Family Medical History: Cancer General Exam Limitations: no limitations General appearance: alert, in no apparent distress Head exam: Present: atraumatic, normocephalic, normal inspection ENT exam: Present: normal exam, mucous membranes moist Respiratory exam: Present: normal lung sounds bilaterally Cardiovascular Exam: Present: regular rate, normal rhythm, normal heart sounds. Absent: systolic murmur, diastolic murmur, rubs, gallop, clicks GI/Abdominal exam: Present: soft, normal bowel sounds. Absent: distended, tenderness, guarding, rebound, rigid Neurological exam: Present: alert, oriented X3, CN II-XII intact Psychiatric exam: Present: normal affect, normal mood Skin exam: Present: other (1+ bilateral pretibial pitting edema) Course Vital Signs 07/27/23 07/27/23 18:43 20:02 Temperature 100.5 F H 100.4 F H Pulse Rate 89 77 Respiratory 36 H 24 Rate Blood Pressure 153/71 93/50 O2 Sat by Pulse 94 L 93 L Oximetry - Reevaluation(s) Reevaluation #1: 07/27/23 22:[address] Jacques, [facility], who accepts medical admission. Medical Decision Making - Medical Decision Making Was pt. sent in by a medical professional or institution (, SUDHA, DENSITOMETRIST, urgent care, hospital, or [facility]...) When possible be specific @ -No Did you speak to anyone other than the patient for history (EMS, parent, family, police, friend...)? What history was obtained from this source @ -No Did you review nursing and triage notes (agree or disagree)? Why? @ -I reviewed and agree with nursing and triage notes Were old charts reviewed (outside hosp., previous admission, EMS record, old EKG, old radiological studies, urgent care reports/EKG's, [facility] records)? Report findings @ -No old charts were reviewed Differential Diagnosis (chest pain, altered mental status, abdominal pain women, abdominal pain men, vaginal bleeding, weakness, fever, dyspnea, syncope, headache, dizziness, GI bleed, back pain, seizure, CVA, palpatations, mental health, musculoskeletal)? @ -Differential Dyspnea:Coronary syndrome, arrhythmia, tamponade, asthma, COPD, pulmonary embolism, pneumonia, pneumothorax, pulmonary effusion, anaphylaxis, di abetic ketoacidosis, flailed chest, pulmonary contusion, diaphragmatic rupture, anemia, neuromuscular, this is not meant to be an all-inclusive list. EKG interpreted by me (3pts min.). @ -As above X-rays interpreted by me (1pt min.). @ -X-ray interpreted by me concerning of right lower lobe infiltrate. CT interpreted by me (1pt min.). @ -None done U/S interpreted by me (1pt. min.). @ -None done What testing was considered but not performed or refused? (CT, X-rays, U/S, labs)? Why? @ -None What meds were considered but not given or refused? Why? @ -None Did you discuss the management of the patient with other professionals (professionals i.e. SUDHA Gomez, DENSITOMETRIST, lab, RT, psych nurse, manager social media, traffic investigator, teacher, global chief creative officer, home health care case manager)? Give summary @ -Yes, case discussed with Dr. Jacques [facility], who accepts medical admission. Was smoking cessation discussed for >3mins.? @ -No Was critical care preformed (if so, how long)? @ -No Were there social determinants of health that impacted care today? How? (Homelessness, low income, unemployed, alcoholism, drug addiction, transportat ion, low edu. Level, literacy, decrease access to med. care, longterm, rehab)? @ -No Was there de-escalation of care discussed even if they declined (Discuss DNR or withdrawal of care, Hospice)? DNR status @ -No What co-morbidities impacted this encounter? (DM, HTN, Smoking, COPD, CAD, Cancer, CVA, ARF, Chemo, Hep., AIDS, mental health diagnosis, sleep apnea, morbid obesity)? @ -COPD, diabetes,Chronic kidney disease on dialysis, thyroid disorder, hypertension Was patient admitted / discharged? Hospital course, mention meds given and route, prescriptions, significant lab abnormalities, going to OR and other pertinent info. @ -Admitted. 68-year-old female presented to the ER with a chief complaint of shortness of breath and fever. History and physical exam completed. Vitals on arrival significant for a temperature of 100.5F, respirations 36, blood pressure 153/71 and oxygen saturation 94% on room air. Patient no signs of acute distress and ill-appearing. Lung sounds clear auscultation bilaterally. 1+ pitting pretibial edema bilaterally. Patient is on dialysis and does not produce urine. Last dialysis today, 07-27-2023. Laboratory studies obtained significant for hemoglobin 10.3 which is baseline, sodium 134, BUN 20, creatinine 4.06. Lactic 4.3. Troponin 0.026. Influenza, RSV, COVID-negative. Chest x-ray interpreted by me significant for pneumonia. Patient received by mouth Tylenol, IV zofran and 1 L of IV fluids due to lactic acid. Patient did not receive another bolus or ibuprofen due to kidney disease. Blood cultures obtained. Patient started on IV Rocephin and azithromycin. Admission considered due to sepsis. Case discussed with Dr. Jacques [facility], who accepts medical admission. Patient agreeable for admission. ID and pulmonology on consult. Case discussed with ED attending, Dr. Kevin. Undiagnosed new problem with uncertain prognosis? @ -No Drug Therapy requiring intensive monitoring for toxicity (Heparin, Nitro, Insulin, Cardizem)? @ -No Were any procedures done? @ -No Diagnosis/symptom? @ -Sepsis/pneumonia Acute, or Chronic, or Acute on Chronic? @ -Acute Uncomplicated (without systemic symptoms) or Complicated (systemic symptoms)? @ -Complicated Side effects of treatment? @ -No Exacerbation, Progression, or Severe Exacerbation? @ -No Poses a threat to life or bodily function? How? (Chest pain, [place], [place], pneumonia, PE, COPD, DKA, ARF, appy, cholecystitis, CVA, Diverticulitis, Homicidal, Suicidal, threat to staff... and all critical care pts) @ -Yes sepsis - Lab Data Result diagrams: 07/27/23 19:05 07/27/23 19:05 Lab Results 07/27/23 07/27/23 07/27/23 Range/Units 19:05 19:05 19:05 WBC 5.9 (3.8-10.6) k/uL RBC 3.00 L (3.80-5.40) m/uL Hgb 10.3 L (11.4-16.0) gm/dL Hct 31.3 L (34.0-46.0) % MCV 104.3 H (80.0-100.0) fL MCH 34.3 (25.0-35.0) pg MCHC 32.8 (31.0-37.0) g/dL RDW 14.0 (11.5-15.5) % Plt Count 220 (150-450) k/uL MPV 9.2 Neutrophils % 90 % Lymphocytes % 7 % Monocytes % 1 % Eosinophils % 1 % Basophils % 0 % Neutrophils # 5.3 (1.3-7.7) k/uL Lymphocytes # 0.4 L (1.0-4.8) k/uL Monocytes # 0.1 (0-1.0) k/uL Eosinophils # 0.1 (0-0.7) k/uL Basophils # 0.0 (0-0.2) k/uL Macrocytosis Slight PT (10.0-12.5) sec INR (<1.2) APTT (22.0-30.0) sec Sodium 134 L (137-145) mmol/L Potassium 3.8 (3.5-5.1) mmol/L Chloride 94 L (98-107) mmol/L Carbon Dioxide 27 (22-30) mmol/L Anion Gap 13 mmol/L BUN 20 H (7-17) mg/dL Creatinine 4.06 H (0.52-1.04) mg/dL Est GFR (CKD-EPI)AfAm 12 (>60 ml/min/1.73 sqM) Est GFR (CKD-EPI)NonAf 11 (>60 ml/min/1.73 sqM) Glucose 162 H (74-99) mg/dL Lactic Ac Sepsis Rflx Plasma Lactic Acid Charly (0.7-2.0) mmol/L Calcium 8.2 L (8.4-10.2) mg/dL Magnesium 1.6 (1.6-2.3) mg/dL Total Bilirubin 1.4 H (0.2-1.3) mg/dL AST 75 H (14-36) U/L ALT 32 (4-34) U/L Alkaline Phosphatase 287 H (38-126) U/L Troponin I (0.000-0.034) ng/mL Total Protein 7.6 (6.3-8.2) g/dL Albumin 3.1 L (3.5-5.0) g/dL Influenza Type A (PCR) Not Detected (Not Detectd) Influenza Type B (PCR) Not Detected (Not Detectd) RSV (PCR) Not Detected (Not Detectd) SARS-CoV-2 (PCR) Not Detected (Not Detectd) 07/27/23 07/27/23 07/27/23 Range/Units 19:05 19:05 19:05 WBC (3.8-10.6) k/uL RBC (3.80-5.40) m/uL Hgb (11.4-16.0) gm/dL Hct (34.0-46.0) % MCV (80.0-100.0) fL MCH (25.0-35.0) pg MCHC (31.0-37.0) g/dL RDW (11.5-15.5) % Plt Count (150-450) k/uL MPV Neutrophils % % Lymphocytes % % Monocytes % % Eosinophils % % Basophils % % Neutrophils # (1.3-7.7) k/uL Lymphocytes # (1.0-4.8) k/uL Monocytes # (0-1.0) k/uL Eosinophils # (0-0.7) k/uL Basophils # (0-0.2) k/uL Macrocytosis PT 11.1 (10.0-12.5) sec INR 1.0 (<1.2) APTT 25.7 (22.0-30.0) sec Sodium (137-145) mmol/L Potassium (3.5-5.1) mmol/L Chloride (98-107) mmol/L Carbon Dioxide (22-30) mmol/L Anion Gap mmol/L BUN (7-17) mg/dL Creatinine (0.52-1.04) mg/dL Est GFR (CKD-EPI)AfAm (>60 ml/min/1.73 sqM) Est GFR (CKD-EPI)NonAf (>60 ml/min/1.73 sqM) Glucose (74-99) mg/dL Lactic Ac Sepsis Rflx Plasma Lactic Acid Charly 4.3 H* (0.7-2.0) mmol/L Calcium (8.4-10.2) mg/dL Magnesium (1.6-2.3) mg/dL Total Bilirubin (0.2-1.3) mg/dL AST (14-36) U/L ALT (4-34) U/L Alkaline Phosphatase (38-126) U/L Troponin I 0.026 (0.000-0.034) ng/mL Total Protein (6.3-8.2) g/dL Albumin (3.5-5.0) g/dL Influenza Type A (PCR) (Not Detectd) Influenza Type B (PCR) (Not Detectd) RSV (PCR) (Not Detectd) SARS-CoV-2 (PCR) (Not Detectd) 07/27/23 Range/Units 19:31 WBC (3.8-10.6) k/uL RBC (3.80-5.40) m/uL Hgb (11.4-16.0) gm/dL Hct (34.0-46.0) % MCV (80.0-100.0) fL MCH (25.0-35.0) pg MCHC (31.0-37.0) g/dL RDW (11.5-15.5) % Plt Count (150-450) k/uL MPV Neutrophils % % Lymphocytes % % Monocytes % % Eosinophils % % Basophils % % Neutrophils # (1.3-7.7) k/uL Lymphocytes # (1.0-4.8) k/uL Monocytes # (0-1.0) k/uL Eosinophils # (0-0.7) k/uL Basophils # (0-0.2) k/uL Macrocytosis PT (10.0-12.5) sec INR (<1.2) APTT (22.0-30.0) sec Sodium (137-145) mmol/L Potassium (3.5-5.1) mmol/L Chloride (98-107) mmol/L Carbon Dioxide (22-30) mmol/L Anion Gap mmol/L BUN (7-17) mg/dL Creatinine (0.52-1.04) mg/dL Est GFR (CKD-EPI)AfAm (>60 ml/min/1.73 sqM) Est GFR (CKD-EPI)NonAf (>60 ml/min/1.73 sqM) Glucose (74-99) mg/dL Lactic Ac Sepsis Rflx Y Plasma Lactic Acid Charly (0.7-2.0) mmol/L Calcium (8.4-10.2) mg/dL Magnesium (1.6-2.3) mg/dL Total Bilirubin (0.2-1.3) mg/dL AST (14-36) U/L ALT (4-34) U/L Alkaline Phosphatase (38-126) U/L Troponin I (0.000-0.034) ng/mL Total Protein (6.3-8.2) g/dL Albumin (3.5-5.0) g/dL Influenza Type A (PCR) (Not Detectd) Influenza Type B (PCR) (Not Detectd) RSV (PCR) (Not Detectd) SARS-CoV-2 (PCR) (Not Detectd) - EKG Data -: EKG Interpreted by Me EKG Comments: EKG taken at 18: 49 sinus rhythm with no acute ST segment or T wave abnormalities. Artifact in all leads. Ventricular rate 89, QRS duration 98, QT/QTc 349/396. - Radiology Data Radiology results: report reviewed, image reviewed Disposition Clinical Impression: Pneumonia, Sepsis, Chronic kidney disease Disposition: ADMITTED IP TO THIS HOSP Condition: Fair Referrals: Candelaria Barrera MD [Primary Care Provider] - 1-2 days Time of Disposition: 21:42
--- NOTE | 2023-07-27 19:57 | XR ---
EXAMINATION TYPE: XR chest 2V DATE OF EXAM: 07/27/2023 7:19 PM CLINICAL INDICATION:Female, 68 years old with history of fever; [facility] COMPARISON: 07/15/2013 TECHNIQUE: XR chest 2V. Frontal and lateral views of the chest.. FINDINGS: Lines/Tubes/Devices: EKG leads overlie the chest. No indwelling lines are seen. Heart/mediastinum: Size is stable, mildly to moderately enlarged. Mediastinum appears unchanged. Pulmonary vascularity: Pulmonary vascular congestion. Increased interstitial markings can be seen wit h edema or pneumonitis. An element of chronic change is possible. Lungs/Pleura: There is no evidence of pleural effusion, focal consolidation, or pneumothorax. Mild limitation by the patient's head position over the lung apices. Musculoskeletal: No acute osseous abnormality demonstrated in the limits of the exam. Degenerative c hanges of the spine and shoulders. Other findings: None. IMPRESSION: Cardiomegaly with vascular congestion and interstitial prominence suggesting edema or pneumonitis, si milar to slightly greater compared to the prior study.
[2023-07-27 19:59] LABS: Partial Thromboplastin Time 25.7 sec (22.0-30.0); Prothrombin Time 11.1 sec (10.0-12.5)
[2023-07-27] MEDS: ONDANSETRON 4 MG/2 ML VIAL IVP STA (20:00)
[2023-07-27] MEDS ORDERED: NALOXONE 0.4 MG/ML 1 ML VIAL IV PRN (22:00)
[2023-07-27] MEDS: cefTRIAXone IN SWFI 1,000 MG/10 ML SYRINGE IVP STA (22:46)
[2023-07-27] MEDS: SODIUM CHLORIDE 0.9% 1,000 ML IV SCH (22:46)
[2023-07-27] MEDS: AZITHROMYCIN 500 MG in SODIUM CHLORIDE 0.9% 250 ML IVPB STA (22:49)
[2023-07-28] MEDS: LEVOTHYROXINE 75 MCG TAB PO SCH (06:17)
[2023-07-28] MEDS: PANTOPRAZOLE 40 MG TABLET PO SCH (09:31)
[2023-07-28] MEDS ORDERED: BENZONATATE 100 MG CAP PO PRN (12:41)
[2023-07-28] MEDS ORDERED: MIDODRINE 5 MG TAB PO PRN (12:41)
--- NOTE | 2023-07-28 14:00 | P.CNPUL ---
History of Present Illness Consult date: 07/28/23 Requesting physician: Curtis Jacques Reason for consult: cough Chief complaint: Cough and chills History of present illness: This is a 68-year-old female with history of end-stage renal disease, on hemodialysis, patient is familiar to my service, I have seen this patient before for respiratory failure requiring intubation mechanical ventilation, patient came in with 2 days history of not feeling well, some shortness of breath and chills. Minimal dry cough. Patient had no chest pain, no fever, no nausea no vomiting no abdominal pain, patient has been on dialysis and her last dialysis treatment was yesterday. On admission her chest x-ray showed minimal interstitial changes suggestive of mild interstitial edema, doubt underlying pneumonia as the symptoms are not pointing to pneumonia. Her WBC count was normal 5.9 hemoglobin 10.3 basic metabolic profile is normal electrolytes are normal renal profile showed a BUN of 20 creatinine of 4.06. Patient was noted to be hemodynamically stable, her O2 saturation is 100% on 4 L nasal cannula and 96% on 2 L nasal cannula nonetheless the patient is being admitted, and I was asked to see this patient on consultation back on 06/07/2023, patient had a cardiac arrest post ERCP, patient had pulseless electrical activity, and she had CPR for about 2 to 3 minutes. Back then she was intubated mechanically ventilated, and I extubated the patient a day later patient was eventually discharged on 06/15/23. On 06/18 0 patient was seen in the ER for acute COVID-19 infection, did not require admission to the hospital her main symptom at this time was mostly weakness and cough. On this admission I saw the patient in the ER, and I did not feel very convinced that the patient even needs to be admitted to the hospital. I believe the patient could be managed on outpatient basis and follow-up with her primary care physician Review of Systems REVIEW OF SYSTEMS: CONSTITUTIONAL: Generalized weakness and chills EYES: Negative. ENT: Negative. CARDIAC: Negative. PULMONARY: Dry cough GI: Negative. GENITOURINARY: Negative. MUSCULOSKELETAL: Negative. SKIN: Negative. NEUROPSYCH: Negative. ENDOCRINE: Negative. HEMATOLOGIC: Negative. 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 6 years. Last Myocardial Infarction Date:: Unknown History of Any Multi-Drug Resistant Organisms: None Reported Past Surgical History: Section, Hysterectomy, Orthopedic Surgery Additional Past Surgical History / Comment(s): Had open thrombectomy left axillary graft on 12-21-21,BONE TUMOR REMOVED FROM LT FINGER AND REPLACED WITH BONE FROM ELBOW. DIALYSIS FISTULA rt arm-old, lasik rt eye surgery, right upper ext. left AV graft revision 03-31-20 Past Anesthesia/Blood Transfusion Reactions: Postoperative Nausea & Vomiting (P ONV) Past Psychological History: No Psychological Hx Reported Smoking Status: Never smoker Past Alcohol Use History: None Reported Past Drug Use History: None Reported - Past Family History Mother Family Medical History: Cancer Brother(s) Family Medical History: Cancer Medications and Allergies Home Medications Medication Instructions Recorded Confirmed Type Levothyroxine Sodium [Synthroid] 150 mcg PO MOTUWETHFR 03/25/20 07/27/23 History Levothyroxine Sodium [Synthroid] 225 mcg PO SUSA 12/20/21 07/27/23 History Insulin Glargine,Hum.rec.anlog 33 units SQ BID 07/21/22 07/27/23 History [Lantus Solostar Pen] Insulin Lispro [humaLOG Kwikpen] 23 unit SQ AC-TID 07/21/22 07/27/23 History Sevelamer [Renvela] 800 - 1,600 mg PO TID-W/MEALS 10/17/22 07/27/23 History Simvastatin [Zocor] 40 mg PO HS 10/17/22 07/27/23 History Pantoprazole Sodium [Protonix] 20 mg PO DAILY 05/31/23 07/27/23 History traZODone HCL [Desyrel] 100 mg PO HS PRN 05/31/23 07/27/23 History Folic Acid/Vit B Complex and C 0.8 mg PO HS 07/16/23 07/27/23 History [Nephro-Nav Tablet] Midodrine HCl [ProAmatine] 10 mg PO TID PRN 07/16/23 07/27/23 History carvediloL [Coreg] 25 mg PO BID 07/16/23 07/27/23 History Benzonatate [Tessalon Perles] 100 mg PO TID PRN 07/27/23 07/27/23 History Allergies Allergy/AdvReac Type Severity Reaction Status Date / Time No Known Allergies Allergy Verified 07/27/23 19:54 Physical Exam Vitals: Vital Signs Temp Pulse Pulse Resp BP BP Pulse Ox 07/28/23 12:00 98.4 F 60 16 106/45 100 07/28/23 07:44 98.3 F 58 L 18 108/45 100 07/28/23 06:13 97.7 F 58 L 18 109/41 95 07/28/23 03:30 97.6 F 64 20 97/42 96 07/28/23 01:11 98.6 F 67 20 119/67 98 07/27/23 23:44 77 20 90/63 96 07/27/23 22:49 96 07/27/23 22:40 99.1 F 73 20 92/68 77 L 07/27/23 20:02 100.4 F H 77 24 93/50 93 L 07/27/23 18:43 100.5 F H 89 36 H 153/71 94 L Intake and Output 07/27/23 07/28/23 07/28/23 22:59 06:59 14:59 Other: Weight 136.078 kg General Appearance: Reveals 68-year-old female, on 2 L nasal cannula Neck HEENT: Supple, no lymphadenopathy, no thyroid enlargement, no carotid bruits. Lungs: Symmetrical chest expansion, good breath sound bilaterally minimal crackles at the bases Chest Wall: No chest wall deformity, no tenderness. Heart: S1-S2, no S3 gallop. Murmur. Abdomen: Soft nontender no megaly no rebound, suspect small ascites. Extremities: Trace of bipedal edema Pulses: Distal pulses bilaterally slightly diminished. Skin: Skin color, texture, tugor normal, no rashes or lesions. Neurologic: Awake alert and oriented x 3 no gross focal deficit Psychiatric: Alert oriented x 3, normal mood normal affect normal mental status examination. Results - Laboratory Findings CBC and BMP: 07/27/23 19:05 07/27/23 19:05 PT/INR, D-dimer PT 11.1 sec (10.0-12.5) 07/27/23 19:05 INR 1.0 (<1.2) 07/27/23 19:05 Abnormal lab findings: Abnormal Labs 07/27/23 07/27/23 07/27/23 19:05 19:05 19:05 RBC 3.00 L Hgb 10.3 L Hct 31.3 L MCV 104.3 H Lymphocytes # 0.4 L Sodium 134 L Chloride 94 L BUN 20 H Creatinine 4.06 H Glucose 162 H Plasma Lactic Acid Charly 4.3 H* Calcium 8.2 L Total Bilirubin 1.4 H AST 75 H Alkaline Phosphatase 287 H Albumin 3.1 L 07/27/23 07/28/23 21:50 01:26 RBC Hgb Hct MCV Lymphocytes # Sodium Chloride BUN Creatinine Glucose Plasma Lactic Acid Charly 4.6 H* 2.7 H* Calcium Total Bilirubin AST Alkaline Phosphatase Albumin - Diagnostic Findings Chest x-ray: image reviewed (As noted in HPI) Assessment and Plan Assessment: Impression: Acute tracheobronchitis/URI, doubt pneumonia Mild interstitial edema secondary to chronic end-stage renal disease patient had her last hemodialysis yesterday. History of cardiac arrest/PEA requiring intubation mechanical ventilation Chronic fluid overload on hemodialysis Morbid obesity Benign essential hypertension Type 2 diabetes History of hypothyroidism History of choledocholithiasis History of end-stage renal disease on hemodialysis Anemia of chronic disease Recommendation: Patient was seen and examined while in the ER I I believe the patient could be discharged home and managed with a course of antibiotics for URI No clear-cut indication for hospital admission Patient could be seen on outpatient basis for follow-up in the next few days. If admitted to the hospital will only recommend observation only. Will follow as needed Time with Patient: Greater than 30
[2023-07-28 17:30] LABS: Glucose,Whole Blood 194 mg/dL (70-110)
[2023-07-28] MEDS: INSULIN ASPART (NovoLOG) 100 UNIT/ML VIAL SQ SCH (17:54)
[2023-07-28] MEDS: SEVELAMER 800 MG TAB PO SCH (17:55)
--- NOTE | 2023-07-28 18:10 | P.HPIM ---
History of Present Illness H&P Date: 07/28/23 Chief Complaint: Shortness of breath 68-year-old female with history of end-stage renal disease/HD, presents to the ED with 2 days history of not feeling well, some shortness of breath and chills. Minimal dry cough. Patient had no chest pain, no fever, no nausea no vomiting no abdominal pain, patient has been on dialysis and her last dialysis treatment was yesterday. Workup completed in ED; chest x-ray showed minimal interstitial changes suggestive of mild interstitial edema, doubt underlying pneumonia as the symptoms are not pointing to pneumonia. - WBC count was normal 5.9 hemoglobin 10.3 basic metabolic profile is normal electrolytes are normal renal profile showed a BUN of 20 creatinine of 4.06. Patient was noted to be hemodynamically stable, her O2 saturation is 100% on 4 L nasal cannula Review of Systems REVIEW OF SYSTEMS: CONSTITUTIONAL: No fever, no malaise, no fatigue. HEENT: No recent visual problems or hearing problems. Denied any sore throat. CARDIOVASCULAR: No chest pain, orthopnea, PND, no palpitations, no syncope. PULMONARY: No shortness of breath, no cough, no hemoptysis. GASTROINTESTINAL: No diarrhea, no nausea, no vomiting, no abdominal pain. NEUROLOGICAL: No headaches, no weakness, no numbness. HEMATOLOGICAL: Denies any bleeding or petechiae. GENITOURINARY: Denies any burning micturition, frequency, or urgency. MUSCULOSKELETAL/RHEUMATOLOGICAL: Denies any joint pain, swelling, or any muscle pain. ENDOCRINE: Denies any polyuria or polydipsia. The rest of the 14-point review of systems is negative. 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 6 years. Last Myocardial Infarction Date:: Unknown History of Any Multi-Drug Resistant Organisms: None Reported Past Surgical History: Section, Hysterectomy, Orthopedic Surgery Additional Past Surgical History / Comment(s): Had open thrombectomy left axill lien graft on 12-21-21,BONE TUMOR REMOVED FROM LT FINGER AND REPLACED WITH BONE FROM ELBOW. DIALYSIS FISTULA rt arm-old, lasik rt eye surgery, right upper ext. left AV graft revision 03-31-20 Past Anesthesia/Blood Transfusion Reactions: Postoperative Nausea & Vomiting (PONV) Past Psychological History: No Psychological Hx Reported Smoking Status: Never smoker Past Alcohol Use History: None Reported Past Drug Use History: None Reported - Past Family History Mother Family Medical History: Cancer Brother(s) Family Medical History: Cancer Medications and Allergies Home Medications Medication Instructions Recorded Confirmed Type Levothyroxine Sodium [Synthroid] 150 mcg PO MOTUWETHFR 03/25/20 07/27/23 History Levothyroxine Sodium [Synthroid] 225 mcg PO SUSA 12/20/21 07/27/23 History Insulin Glargine,Hum.rec.anlog 33 units SQ BID 07/21/22 07/27/23 History [Lantus Solostar Pen] Insulin Lispro [humaLOG Kwikpen] 23 unit SQ AC-TID 07/21/22 07/27/23 History Sevelamer [Renvela] 800 - 1,600 mg PO TID-W/MEALS 10/17/22 07/27/23 History Simvastatin [Zocor] 40 mg PO HS 10/17/22 07/27/23 History Pantoprazole Sodium [Protonix] 20 mg PO DAILY 05/31/23 07/27/23 History traZODone HCL [Desyrel] 100 mg PO HS PRN 05/31/23 07/27/23 History Folic Acid/Vit B Complex and C 0.8 mg PO HS 07/16/23 07/27/23 History [Nephro-Nav Tablet] Midodrine HCl [ProAmatine] 10 mg PO TID PRN 07/16/23 07/27/23 History carvediloL [Coreg] 25 mg PO BID 07/16/23 07/27/23 History Benzonatate [Tessalon Perles] 100 mg PO TID PRN 07/27/23 07/27/23 History Allergies Allergy/AdvReac Type Severity Reaction Status Date / Time No Known Allergies Allergy Verified 07/27/23 19:54 Physical Exam Vitals: Vital Signs Temp Pulse Pulse Resp BP BP Pulse Ox 07/28/23 07:44 98.3 F 58 L 18 108/45 100 07/28/23 06:13 97.7 F 58 L 18 109/41 95 07/28/23 03:30 97.6 F 64 20 97/42 96 07/28/23 01:11 98.6 F 67 20 119/67 98 07/27/23 23:44 77 20 90/63 96 07/27/23 22:49 96 07/27/23 22:40 99.1 F 73 20 92/68 77 L 07/27/23 20:02 100.4 F H 77 24 93/50 93 L 07/27/23 18:43 100.5 F H 89 36 H 153/71 94 L Intake and Output 07/27/23 07/28/23 07/28/23 22:59 06:59 14:59 Other: Weight 136.078 kg Neck HEENT: Supple, no lymphadenopathy, no thyroid enlargement, no carotid bruits. Lungs: Symmetrical chest expansion, good breath sound bilaterally minimal crackles at the bases Chest Wall: No chest wall deformity, no tenderness. Heart: S1-S2, no S3 gallop. Murmur. Abdomen: Soft nontender no megaly no rebound, suspect small ascites. Extremities: Trace of bipedal edema Pulses: Distal pulses bilaterally slightly diminished. Skin: Skin color, texture, tugor normal, no rashes or lesions. Neurologic: Awake alert and oriented x 3 no gross focal deficit Psychiatric: Alert oriented x 3, normal mood normal affect normal mental status examination. Results CBC & Chem 7: 07/27/23 19:05 07/27/23 19:05 Labs: Abnormal Lab Results - Last 24 Hours (Table) 07/27/23 07/27/23 07/27/23 Range/Units 19:05 19:05 19:05 RBC 3.00 L (3.80-5.40) m/uL Hgb 10.3 L (11.4-16.0) gm/dL Hct 31.3 L (34.0-46.0) % MCV 104.3 H (80.0-100.0) fL Lymphocytes # 0.4 L (1.0-4.8) k/uL Sodium 134 L (137-145) mmol/L Chloride 94 L (98-107) mmol/L BUN 20 H (7-17) mg/dL Creatinine 4.06 H (0.52-1.04) mg/dL Glucose 162 H (74-99) mg/dL Plasma Lactic Acid Charly 4.3 H* (0.7-2.0) mmol/L Calcium 8.2 L (8.4-10.2) mg/dL Total Bilirubin 1.4 H (0.2-1.3) mg/dL AST 75 H (14-36) U/L Alkaline Phosphatase 287 H (38-126) U/L Albumin 3.1 L (3.5-5.0) g/dL 07/27/23 07/28/23 Range/Units 21:50 01:26 RBC (3.80-5.40) m/uL Hgb (11.4-16.0) gm/dL Hct (34.0-46.0) % MCV (80.0-100.0) fL Lymphocytes # (1.0-4.8) k/uL Sodium (137-145) mmol/L Chloride (98-107) mmol/L BUN (7-17) mg/dL Creatinine (0.52-1.04) mg/dL Glucose (74-99) mg/dL Plasma Lactic Acid Charly 4.6 H* 2.7 H* (0.7-2.0) mmol/L Calcium (8.4-10.2) mg/dL Total Bilirubin (0.2-1.3) mg/dL AST (14-36) U/L Alkaline Phosphatase (38-126) U/L Albumin (3.5-5.0) g/dL Assessment and Plan Assessment: 1. Community-acquired pneumonia -Chest x-ray reveals cardiomegaly with vascular congestion and interstitial prominence suggesting edema versus pneumonitis -Patient has been placed on IV Rocephin and azithromycin; O2 per nasal cannula keeping O2 saturation greater than 92%; monitor CBC, CRP and procalcitonin --Pulmonary consult in place 2. Bacteremia/sepsis; blood cultures positive for gram-negative bacilli; we will continue azithromycin and transition from Rocephin to IV Zosyn; further recommendations once final culture and sensitivities available -ID is consulted for further recommendations 3. Mild interstitial edema; acute CHF versus fluid overload given chronic kidney disease; patient had last dialysis session done yesterday 4. End-stage renal disease/HD 6. Lipidemia; Lipitor 20 mg p.o. nightly 7. Hypothyroidism; continue with home dose of levothyroxine 8. Diabetes mellitus type 2 with long-term insulin use; Levemir 33 units SQ twice daily along with NovoLog 23 units AC 3 times daily; monitor Accu-Cheks with insulin sliding scale as needed 9. Hypertension; patient takes Coreg which has been placed on hold due to softer blood pressure DVT prophylaxis SCDs CODE STATUS; full code
[2023-07-28] MEDS: PIPERACILLIN-TAZOBACTAM 3.375 GM in SODIUM CHLORIDE 0.9% 100 ML IVPB SCH (18:48)
[2023-07-28] MEDS: INSULIN DETEMIR (LEVEMIR) 100 UNIT/ML SYR SQ SCH (22:02)
[2023-07-28] MEDS: FOLIC ACID-VIT B COMPLEX-VIT C 1 CAP PO SCH (22:02)
[2023-07-28] MEDS: ATORVASTATIN 20 MG TAB PO SCH (22:02)
--- NOTE | 2023-07-28 22:09 | P.CONS ---
History of Present Illness - Reason for Consult Consult date: 07/28/23 Pneumonia Requesting physician: Teresa Nice - Chief Complaint Increasing shortness of breath not feeling well x few days - History of Present Illness Patient is a 68-year-old female with a past medical history significant for diabetes mellitus hypertension hyperlipidemia [place] osteomyelitis CVA TIA former smoker end-stage renal disease on dialysis patient was brought into the hospital last evening for evaluation of increasing shortness of breath and this patient symptom has been getting worse for the last 2 days and the patient was not feeling well patient has been complaining of feeling chilled and did have a cough which is mild in intensity not bring up any sputum did have some nausea but no vomiting no chest pain no abdominal pain and no diarrhea pat ient on presentation to the hospital did have a fever 100.5 F patient was not tachycardic or hypotensive patient was hypoxic with O2 sat down as low as 77% currently on 4 L nasal cannula oxygen did have elevated lactic acid white count was 5.9 creatinine 4.06 liver enzymes mildly elevated influenza RSV COVID testing was negative patient did have a chest x-ray cardiomegaly with pulmonary vascular congestion and interstitial prominence patient has been admitted to hospital infectious disease was consulted for further management of antibiotic therapy patient is currently on Zithromax patient blood cultures came back positive with Pseudomonas aeruginosa Review of Systems Positive point and negatives has been mentioned in the HPI, complete review of systems was performed and all other systems are negative Past Medical History Past Medical History: CVA/TIA, Diabetes Mellitus, Dialysis, Eye Disorder, GERD/Reflux, Hyperlipidemia, Hypertension, Myocardial Infarction ([place]), Osteoarthritis (OA), Renal Disease, Sleep Apnea/CPAP/BIPAP, Thyroid Disorder Additional Past Medical History / Comment(s): Legally blind, 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 6 years. Last Myocardial Infarction Date:: Unknown History of Any Multi-Drug Resistant Organisms: None Reported Past Surgical History: Section, Hysterectomy, Orthopedic Surgery Additional Past Surgical History / Comment(s): Had open thrombectomy left axillary graft on 12-21-21,BONE TUMOR REMOVED FROM LT FINGER AND REPLACED WITH B ONE FROM ELBOW. DIALYSIS FISTULA rt arm-old, lasik rt eye surgery, right upper ext. left AV graft revision 03-31-20 Past Anesthesia/Blood Transfusion Reactions: Postoperative Nausea & Vomiting (PONV) Past Psychological History: No Psychological Hx Reported Smoking Status: Never smoker Past Alcohol Use History: None Reported Past Drug Use History: None Reported - Past Family History Mother Family Medical History: Cancer Brother(s) Family Medical History: Cancer Medications and Allergies Home Medications Medication Instructions Recorded Confirmed Type Levothyroxine Sodium [Synthroid] 150 mcg PO MOTUWETHFR 03/25/20 07/27/23 History Levothyroxine Sodium [Synthroid] 225 mcg PO SUSA 12/20/21 07/27/23 History Insulin Glargine,Hum.rec.anlog 33 units SQ BID 07/21/22 07/27/23 History [Lantus Solostar Pen] Insulin Lispro [humaLOG Kwikpen] 23 unit SQ AC-TID 07/21/22 07/27/23 History Sevelamer [Renvela] 800 - 1,600 mg PO TID-W/MEALS 10/17/22 07/27/23 History Simvastatin [Zocor] 40 mg PO HS 10/17/22 07/27/23 History Pantoprazole Sodium [Protonix] 20 mg PO DAILY 05/31/23 07/27/23 History traZODone HCL [Desyrel] 100 mg PO HS PRN 05/31/23 07/27/23 History Folic Acid/Vit B Complex and C 0.8 mg PO HS 07/16/23 07/27/23 History [Nephro-Nav Tablet] Midodrine HCl [ProAmatine] 10 mg PO TID PRN 07/16/23 07/27/23 History carvediloL [Coreg] 25 mg PO BID 07/16/23 07/27/23 History Benzonatate [Tessalon Perles] 100 mg PO TID PRN 07/27/23 07/27/23 History Piperacillin-Tazobactam [Zosyn] 3.375 gm IVPB Q12H #24 dose 08/02/23 Rx Allergies Allergy/AdvReac Type Severity Reaction Status Date / Time No Known Allergies Allergy Verified 07/27/23 19:54 Physical Exam Vitals: Vital Signs Temp Pulse Pulse Resp BP BP Pulse Ox 07/28/23 07:44 98.3 F 58 L 18 108/45 100 07/28/23 06:13 97.7 F 58 L 18 109/41 95 07/28/23 03:30 97.6 F 64 20 97/42 96 07/28/23 01:11 98.6 F 67 20 119/67 98 07/27/23 23:44 77 20 90/63 96 07/27/23 22:49 96 07/27/23 22:40 99.1 F 73 20 92/68 77 L 07/27/23 20:02 100.4 F H 77 24 93/50 93 L 07/27/23 18:43 100.5 F H 89 36 H 153/71 94 L Intake and Output 07/27/23 07/28/23 07/28/23 22:59 06:59 14:59 Other: Weight 136.078 kg GENERAL DESCRIPTION: Elderly female lying in bed, no distress. No tachypnea or accessory muscle of respiration use. HEENT: Shows Pallor , no scleral icterus. Oral mucous membrane is dry. No pharyngeal erythema or thrush NECK: Trachea central, no thyromegaly. LUNGS: Unlabored breathing. Decreased breath sound at the base HEART: S1, S2, regular rate and rhythm. No loud murmur ABDOMEN: Soft, no tenderness , EXTREMITIES: No edema of feet. SKIN: No rash, no masses palpable. NEUROLOGICAL: The patient is awake, alert, oriented x3, mood and affect normal. Results CBC & Chem 7: 08/01/23 14:49 08/01/23 14:49 Labs: Abnormal Lab Results - Last 24 Hours (Table) 07/27/23 07/27/23 07/27/23 Range/Units 19:05 19:05 19:05 RBC 3.00 L (3.80-5.40) m/uL Hgb 10.3 L (11.4-16.0) gm/dL Hct 31.3 L (34.0-46.0) % MCV 104.3 H (80.0-100.0) fL Lymphocytes # 0.4 L (1.0-4.8) k/uL Sodium 134 L (137-145) mmol/L Chloride 94 L (98-107) mmol/L BUN 20 H (7-17) mg/dL Creatinine 4.06 H (0.52-1.04) mg/dL Glucose 162 H (74-99) mg/dL Plasma Lactic Acid Charly 4.3 H* (0.7-2.0) mmol/L Calcium 8.2 L (8.4-10.2) mg/dL Total Bilirubin 1.4 H (0.2-1.3) mg/dL AST 75 H (14-36) U/L Alkaline Phosphatase 287 H (38-126) U/L Albumin 3.1 L (3.5-5.0) g/dL 07/27/23 07/28/23 Range/Units 21:50 01:26 RBC (3.80-5.40) m/uL Hgb (11.4-16.0) gm/dL Hct (34.0-46.0) % MCV (80.0-100.0) fL Lymphocytes # (1.0-4.8) k/uL Sodium (137-145) mmol/L Chloride (98-107) mmol/L BUN (7-17) mg/dL Creatinine (0.52-1.04) mg/dL Glucose (74-99) mg/dL Plasma Lactic Acid Charly 4.6 H* 2.7 H* (0.7-2.0) mmol/L Calcium (8.4-10.2) mg/dL Total Bilirubin (0.2-1.3) mg/dL AST (14-36) U/L Alkaline Phosphatase (38-126) U/L Albumin (3.5-5.0) g/dL Assessment and Plan (1) Bacteremia due to Pseudomonas Current Visit: Yes Status: Acute Code(s): R78.81 - BACTEREMIA; B96.5 - PSEUDOMONAS (MALLEI) CAUSING DISEASES [facility] SNOMED Code(s): 1074121924 (2) Pneumonia Current Visit: Yes Status: Acute Code(s): J18.9 - PNEUMONIA, UNSPECIFIED ORGANISM SNOMED Code(s): 144480396 (3) Sepsis Current Visit: Yes Status: Acute Code(s): A41.9 - SEPSIS, UNSPECIFIED ORGANISM SNOMED Code(s): 63252189 Plan: 1patient presented hospital with increasing shortness of breath and this patient did have a cough patient did have a low-grade fever and significant hypoxemia with evidence of infiltrate on chest x-ray high likely suspicious for pneumonia possible gram-negative. 2patient with Pseudomonas aeruginosa bacteremia source likely pneumonia. 3blood cultures repeated document clearance of her bacteremia. 4we will check sputum for Gram stain culture check a CRP and procalcitonin 5-patient started on Zosyn 3.375gm q12 hours while waiting for sensitivity to finalize We will follow on clinical condition and cultures to further adjust medication if needed Thank you for this consultation we will follow the patient along with you Dictation was produced using [employer] dictation software. please excuse any grammatical, word or spelling errors. Time with Patient: Greater than 30
[2023-07-29 01:54] LABS: Glucose,Whole Blood 61 mg/dL (70-110)
[2023-07-29 02:44] LABS: Glucose,Whole Blood 66 mg/dL (70-110)
[2023-07-29 02:44] LABS: Glucose,Whole Blood 59 mg/dL (70-110)
[2023-07-29 03:16] LABS: Glucose,Whole Blood 73 mg/dL (70-110)
[2023-07-29 03:51] LABS: Basophils % (A) 0 %; Eosinophils # (A) 0.3 k/uL (0-0.7); Eosinophils % (A) 3 %; HGB 9.1 gm/dL (11.4-16.0); Hypochromasia Slight; Lymphocytes # (A) 2.1 k/uL (1.0-4.8); Lymphocytes % (A) 16 %; MCH 34.3 pg (25.0-35.0); MCHC 32.4 g/dL (31.0-37.0); MCV 105.9 fL (80.0-100.0); Macrocytosis Moderate; Mean Platelet Volume 9.9; Monocytes # (A) 0.6 k/uL (0-1.0); Monocytes % (A) 5 %; Neutrophils # (A) 9.5 k/uL (1.3-7.7); Neutrophils % (A) 73 %; Platelet Count 195 k/uL (150-450); RBC 2.64 m/uL (3.80-5.40); RDW 14.4 % (11.5-15.5)
[2023-07-29 04:54] LABS: African American GFR (CKD) 8 (>60 ml/min/1.73 sqM); Anion Gap 9 mmol/L; Blood Urea Nitrogen 38 mg/dL (7-17); Calcium 8.1 mg/dL (8.4-10.2); Carbon Dioxide 27 mmol/L (22-30); Chloride 97 mmol/L (98-107); Glucose 57 mg/dL (74-99); Non-African American GFR(CKD) 7 (>60 ml/min/1.73 sqM); Potassium 3.6 mmol/L (3.5-5.1); Sodium 133 mmol/L (137-145)
[2023-07-29 04:56] LABS: Glucose,Whole Blood 88 mg/dL (70-110)
[2023-07-29 05:19] LABS: C Reactive Protein 24.5 mg/dL (<1.0)
[2023-07-29] MEDS: LEVOTHYROXINE 75 MCG TAB PO SCH (06:38)
[2023-07-29 06:51] LABS: Glucose,Whole Blood 122 mg/dL (70-110)
[2023-07-29 07:45] LABS: Glucose,Whole Blood 148 mg/dL (70-110)
[2023-07-29 12:13] LABS: Glucose,Whole Blood 88 mg/dL (70-110)
--- NOTE | 2023-07-29 13:54 | P.PN ---
Subjective Progress Note Date: 07/29/23 Principal diagnosis: Sepsis, pneumonia. This is a 68-year-old female with history of end-stage renal disease, on hemodialysis, patient is familiar to my service, I have seen this patient before for respiratory failure requiring intubation mechanical ventilation, patient came in with 2 days history of not feeling well, some shortness of breath and chills. Minimal dry cough. Patient had no chest pain, no fever, no nausea no vomiting no abdominal pain, patient has been on dialysis and her last dialysis treatment was yesterday. On admission her chest x-ray showed minimal in terstitial changes suggestive of mild interstitial edema, doubt underlying pneumonia as the symptoms are not pointing to pneumonia. Her WBC count was normal 5.9 hemoglobin 10.3 basic metabolic profile is normal electrolytes are normal renal profile showed a BUN of 20 creatinine of 4.06. Patient was noted to be hemodynamically stable, her O2 saturation is 100% on 4 L nasal cannula and 96% on 2 L nasal cannula nonetheless the patient is being admitted, and I was asked to see this patient on consultation back on 06/07/2023, patient had a cardiac arrest post ERCP, patient had pulseless electrical activity, and she had CPR for about 2 to 3 minutes. Back then she was intubated mechanically venti lated, and I extubated the patient a day later patient was eventually discharged on 06/15/23. On 06/18 0 patient was seen in the ER for acute COVID-19 infection, did not require admission to the hospital her main symptom at this time was mostly weakness and cough. On this admission I saw the patient in the ER, and I did not feel very convinced that the patient even needs to be admitted to the hospital. I believe the patient could be managed on outpatient basis and follow-up with her primary care physician Progress note dated July 29, 2023. This is a 68-year-old female who is seen in the emergency department, room 26. She was seen yesterday by my partner in consultation. The patient is currently on 2 L of oxygen. The patient is receiving saline at 20 cc an hour. She continues on Zosyn. Blood cultures are apparently positive, but the organism has not yet been identified. We did ask for a procalcitonin level. Current laboratory data includes a white count of 13, hemoglobin 9.1, hematocrit 28, and platelet count of 195,000. Sodium 133, potassium 3.6, chloride 97, CO2 27, BUN 38, creatinine 5.59. Glucose is 88. Calcium 8.1. C-reactive protein is 24.5, and the procalcitonin level was quite elevated at 58.2. Blood cultures are now revealing gram-negative bacilli. Chest x-ray shows cardiomegaly, with pulmonary vascular congestion. Objective - Vital Signs Vital signs: Vital Signs Temp 98.2 F 07/28/23 16:00 Pulse 72 07/29/23 09:00 Resp 16 07/29/23 09:00 BP 130/68 07/29/23 09:00 Pulse Ox 98 07/29/23 09:00 FiO2 Intake & Output 07/28/23 07/29/23 07/29/23 18:59 06:59 18:59 Intake Total 410 Balance 410 Intake: Intake, IV Titration 160 Amount Sodium Chloride 0.9% 1, 160 000 ml @ 20 mls/hr IV . Q24H [facility] Rx#:[id number] Oral 250 Other: # Bowel Movements 1 - Exam No acute distress, oriented 3. Seen in the emergency department, room 26. Currently on 2 L of oxygen. No respiratory distress. HEENT examination is grossly unremarkable. Mucous membranes are moist. No oral lesions. Neck supple. Full range of motion. No adenopathy thyromegaly or neck vein distention. Cardiovascular examination reveals regular rhythm rate. S1-S2 normal. No S3 or S4. No discernible murmur noted. Heart rate 72 bpm. Lungs reveal clear breath sounds. Breath sounds are equal bilaterally. No adventitious lung sounds including wheezes rhonchi or crackles. Saturations are 98%. Abdomen is, obese, soft, with bowel sounds. Extremities are intact. No cyanosis clubbing or edema. Skin is without rash or lesion. Neurologic examination is brief but nonfocal. - Labs CBC & Chem 7: 07/29/23 03:23 07/29/23 03:23 Labs: Abnormal Lab Results - Last 24 Hours (Table) 07/28/23 07/29/23 07/29/23 Range/Units 17:28 01:51 02:41 WBC (3.8-10.6) k/uL RBC (3.80-5.40) m/uL Hgb (11.4-16.0) gm/dL Hct (34.0-46.0) % MCV (80.0-100.0) fL Neutrophils # (1.3-7.7) k/uL Sodium (137-145) mmol/L Chloride (98-107) mmol/L BUN (7-17) mg/dL Creatinine (0.52-1.04) mg/dL Glucose (74-99) mg/dL POC Glucose (mg/dL) 194 H 61 L 59 L (70-110) mg/dL Calcium (8.4-10.2) mg/dL C-Reactive Protein (<1.0) mg/dL Procalcitonin (0.02-0.09) ng/mL 07/29/23 07/29/23 07/29/23 Range/Units 02:42 03:23 03:23 WBC 13.0 H (3.8-10.6) k/uL RBC 2.64 L (3.80-5.40) m/uL Hgb 9.1 L (11.4-16.0) gm/dL Hct 28.0 L (34.0-46.0) % MCV 105.9 H (80.0-100.0) fL Neutrophils # 9.5 H (1.3-7.7) k/uL Sodium 133 L (137-145) mmol/L Chloride 97 L (98-107) mmol/L BUN 38 H (7-17) mg/dL Creatinine 5.59 H (0.52-1.04) mg/dL Glucose 57 L (74-99) mg/dL POC Glucose (mg/dL) 66 L (70-110) mg/dL Calcium 8.1 L (8.4-10.2) mg/dL C-Reactive Protein 24.5 H (<1.0) mg/dL Procalcitonin (0.02-0.09) ng/mL 07/29/23 07/29/23 07/29/23 Range/Units 03:23 06:49 07:43 WBC (3.8-10.6) k/uL RBC (3.80-5.40) m/uL Hgb (11.4-16.0) gm/dL Hct (34.0-46.0) % MCV (80.0-100.0) fL Neutrophils # (1.3-7.7) k/uL Sodium (137-145) mmol/L Chloride (98-107) mmol/L BUN (7-17) mg/dL Creatinine (0.52-1.04) mg/dL Glucose (74-99) mg/dL POC Glucose (mg/dL) 122 H 148 H (70-110) mg/dL Calcium (8.4-10.2) mg/dL C-Reactive Protein (<1.0) mg/dL Procalcitonin 58.20 H (0.02-0.09) ng/mL Microbiology - Last 24 Hours (Table) 07/27/23 19:20 Blood Culture Gram Stain - Preliminary Blood Blood Culture - Preliminary Gram Neg Bacilli 07/27/23 19:02 Blood Culture Gram Stain - Preliminary Blood Blood Culture - Preliminary Molecular ID Assessment and Plan Assessment: Bacteremia, secondary to gram-negative bacilli. Acute tracheobronchitis. Mild interstitial edema, secondary to chronic end-stage renal disease. History of cardiac arrest/PEA, requiring intubation, and mechanical ventilation. Chronic fluid overload. Morbid obesity. Benign essential hypertension. Type 2 diabetes mellitus. History of hypothyroidism. History of choledocholithiasis. History of end-stage renal disease, on hemodialysis. Anemia of chronic disease. Plan: Plan dated July 29, 2023. The patient is seen today in the emergency department, room 26. She continues on Zosyn. The patient's procalcitonin was quite high. Blood cultures were positive for gram-negative bacilli. Labs, x-rays, and all medications are reviewed. The patient is waiting for an inpatient hospital bed. She continues on oxygen at 2 L. She is getting saline at 20 cc an hour. She states that she is feeling better today than she was yesterday. No additional recommendations are made at this time. Time with Patient: Less than 30
[2023-07-29 15:50] LABS: Glucose,Whole Blood 61 mg/dL (70-110)
[2023-07-29 16:09] LABS: Glucose,Whole Blood 49 mg/dL (70-110)
[2023-07-29 16:09] LABS: Glucose,Whole Blood 51 mg/dL (70-110)
[2023-07-29 16:29] LABS: Glucose,Whole Blood 58 mg/dL (70-110)
[2023-07-29] MEDS: DEXTROSE 50% SYRINGE 50 ML IVP STA (16:44)
[2023-07-29 17:04] LABS: Glucose,Whole Blood 81 mg/dL (70-110)
[2023-07-29 20:28] LABS: Glucose,Whole Blood 98 mg/dL (70-110)
--- NOTE | 2023-07-29 22:50 | P.PN ---
Subjective Progress Note Date: 07/29/23 HISTORY OF PRESENT ILLNESS: This is a 68-year-old female with history of end-stage renal disease, on hemodialysis, patient is familiar to my service, I have seen this patient before for respiratory failure requiring intubation mechanical ventilation, patient came in with 2 days history of not feeling well, some shortness of breath and chills. Minimal dry cough. Patient had no chest pain, no fever, no nausea no vomiting no abdominal pain, patient has been on dialysis and her last dialysis treatment was yesterday. On admission her chest x-ray showed minimal interstitial changes suggestive of mild interstitial edema, doubt underlying pneumonia as the symptoms are not pointing to pneumonia. Her WBC count was normal 5.9 hemoglobin 10.3 basic metabolic profile is normal electrolytes are normal renal profile showed a BUN of 20 creatinine of 4.06. Patient was noted to be hemodynamically stable, her O2 saturation is 100% on 4 L nasal cannula and 96% on 2 L nasal cannula nonetheless the patient is being admitted, and I was asked to see this patient on consultation back on 06/07/2023, patient had a cardiac arrest post ERCP, patient had pulseless electrical activity, and she had CPR for about 2 to 3 minutes. Back then she was intubated mechanically ventilated, and I extubated the patient a day later patient was eventually discharged on 06/15/23. On 06/18 0 patient was seen in the ER for acute COVID-19 infection, did not require admission to the hospital her main symptom at this time was mostly weakness and cough. On this admission I saw the patient in the ER, and I did not feel very convinced that the patient even needs to be admitted to the hospital. I believe the patient could be managed on outpatient basis and follow-up with her primary care physician 07/29/2023:Patient was seen infectious disease yesterday with a culture being positive taking consideration she had Pseudomonas aeruginosa infection from last time and this is probably will be an extension of breath blood culture gram-positive so far not final yet but patient antibiotic was switched to Zosyn 3.375 g every 12 hours with the fluid from sensitivity. Consult nephrology for continued care of hemodialysis. Patient is hemodynamically More stable. REVIEW OF SYSTEMS: REVIEW OF SYSTEMS: CONSTITUTIONAL: No fever, no malaise, no fatigue. HEENT: No recent visual problems or hearing problems. Denied any sore throat. CARDIOVASCULAR: No chest pain, orthopnea, PND, no palpitations, no syncope. PULMONARY: No shortness of breath, no cough, no hemoptysis. GASTROINTESTINAL: No diarrhea, no nausea, no vomiting, no abdominal pain. NEUROLOGICAL: No headaches, no weakness, no numbness. HEMATOLOGICAL: Denies any bleeding or petechiae. GENITOURINARY: Denies any burning micturition, frequency, or urgency. MUSCULOSKELETAL/RHEUMATOLOGICAL: Denies any joint pain, swelling, or any muscle pain. ENDOCRINE: Denies any polyuria or polydipsia. PHYSICAL EXAMINATION: Neck HEENT: Supple, no lymphadenopathy, no thyroid enlargement, no carotid bruits. Lungs: Symmetrical chest expansion, good breath sound bilaterally minimal crackles at the bases Chest Wall: No chest wall deformity, no tenderness. Heart: S1-S2, no S3 gallop. Murmur. Abdomen: Soft nontender no megaly no rebound, suspect small ascites. Extremities: Trace of bipedal edema Pulses: Distal pulses bilaterally slightly diminished. Skin: Skin color, texture, tugor normal, no rashes or lesions. Neurologic: Awake alert and oriented x 3 no gross focal deficit Psychiatric: Alert oriented x 3, normal mood normal affect normal mental status examination. ASSESSMENT AND PLAN: _Severe active pneumonia which could be gram-negative specially taking consideration the recent hospitalization that patient was in for extended period of time with a gram-negative bacteremia at the time. This is still Be the same source we will do an aggressive management with antibiotics, infectious disease, pulmonary, oxygen and updraft. Culture initially showing slight positive resolved not a clear etiology. _ Bacteremia/sepsis; blood cultures positive for gram-negative bacilli; we will continue azithromycin and transition from Rocephin to IV Zosyn; further recommendations once final culture and sensitivities available -ID is consulted for further recommendations _ Mild interstitial edema, with chronic fluid overload; acute CHF versus fluid overload given chronic kidney disease; patient had last dialysis session done yesterday. _ Diabetes mellitus type 2 with long-term insulin use; Levemir 33 units SQ twice daily along with NovoLog 23 units AC 3 times daily; monitor Accu-Cheks with insulin sliding scale as needed _Recent long hospitalization with complication related to cholecystectomy and common duct stone complicated with acute respiratory failure and sepsis. _ End-stage renal disease/HD 3 times a week will consult nephrology. _Hyperlipidemia; Lipitor 20 mg p.o. nightly _Hypothyroidism; continue with home dose of levothyroxine CODE STATUS: Full code. Objective - Vital Signs Vital signs: Vital Signs Temp 98.2 F 07/28/23 16:00 Pulse 56 L 07/29/23 05:32 Resp 16 07/29/23 05:32 BP 134/48 07/29/23 05:32 Pulse Ox 99 07/29/23 05:32 FiO2 Intake & Output 07/28/23 07/28/23 07/29/23 06:59 18:59 06:59 Intake Total 410 Balance 410 Intake: Intake, IV Titration 160 Amount Sodium Chloride 0.9% 1, 160 000 ml @ 20 mls/hr IV . Q24H [facility] Rx#:[id number] Oral 250 Other: # Bowel Movements 1 - Labs CBC & Chem 7: 07/29/23 03:23 07/29/23 03:23 Labs: Abnormal Lab Results - Last 24 Hours (Table) 07/28/23 07/29/23 07/29/23 Range/Units 17:28 01:51 02:41 WBC (3.8-10.6) k/uL RBC (3.80-5.40) m/uL Hgb (11.4-16.0) gm/dL Hct (34.0-46.0) % MCV (80.0-100.0) fL Neutrophils # (1.3-7.7) k/uL Sodium (137-145) mmol/L Chloride (98-107) mmol/L BUN (7-17) mg/dL Creatinine (0.52-1.04) mg/dL Glucose (74-99) mg/dL POC Glucose (mg/dL) 194 H 61 L 59 L (70-110) mg/dL Calcium (8.4-10.2) mg/dL C-Reactive Protein (<1.0) mg/dL 07/29/23 07/29/23 07/29/23 Range/Units 02:42 03:23 03:23 WBC 13.0 H (3.8-10.6) k/uL RBC 2.64 L (3.80-5.40) m/uL Hgb 9.1 L (11.4-16.0) gm/dL Hct 28.0 L (34.0-46.0) % MCV 105.9 H (80.0-100.0) fL Neutrophils # 9.5 H (1.3-7.7) k/uL Sodium 133 L (137-145) mmol/L Chloride 97 L (98-107) mmol/L BUN 38 H (7-17) mg/dL Creatinine 5.59 H (0.52-1.04) mg/dL Glucose 57 L (74-99) mg/dL POC Glucose (mg/dL) 66 L (70-110) mg/dL Calcium 8.1 L (8.4-10.2) mg/dL C-Reactive Protein 24.5 H (<1.0) mg/dL Microbiology - Last 24 Hours (Table) 07/27/23 19:20 Blood Culture Gram Stain - Preliminary Blood 07/27/23 19:02 Blood Culture Gram Stain - Preliminary Blood Blood Culture - Preliminary Molecular ID
[2023-07-29] MEDS: DEXTROSE 50% SYRINGE 50 ML IVP ONE (22:54)
[2023-07-30 06:09] LABS: Glucose,Whole Blood 103 mg/dL (70-110)
--- NOTE | 2023-07-30 11:45 | P.NPCON ---
History of Present Illness - Reason for Consult end stage renal disease - History of Present Illness patient is a 68-year-old female with end-stage renal disease on hemodialysis on a Saturday schedule. Patient is admitted to the hospital with complaints of increased weakness and shortness of breath and chills. fever of 100.5F was noted on admission. Blood cultures are growing Pseudomonas. Chest x-ray shows interstitial prominence. patient is maintained on IV Zosyn. No significant urine output. patient has a right Upper arm loop AV graft. no tenderness or redness noted around the graft. 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 6 years. Last Myocardial Infarction Date:: Unknown History of Any Multi-Drug Resistant Organisms: None Reported Past Surgical History: Section, Hysterectomy, Orthopedic Surgery Additional Past Surgical History / Comment(s): Had open thrombectomy left axillary graft on 12-21-21,BONE TUMOR REMOVED FROM LT FINGER AND REPLACED WITH BONE FROM ELBOW. DIALYSIS FISTULA rt arm-old, lasik rt eye surgery, right upper ext. left AV graft revision 03-31-20 Past Anesthesia/Blood Transfusion Reactions: Postoperative Nausea & Vomiting (PONV) Past Psychological History: No Psychological Hx Reported Smoking Status: Never smoker Past Alcohol Use History: None Reported Past Drug Use History: None Reported - Past Family History Mother Family Medical History: Cancer Brother(s) Family Medical History: Cancer Medications and Allergies Home Medications Medication Instructions Recorded Confirmed Type Levothyroxine Sodium [Synthroid] 150 mcg PO MOTUWETHFR 03/25/20 07/27/23 History Levothyroxine Sodium [Synthroid] 225 mcg PO SUSA 12/20/21 07/27/23 History Insulin Glargine,Hum.rec.anlog 33 units SQ BID 07/21/22 07/27/23 History [Lantus Solostar Pen] Insulin Lispro [humaLOG Kwikpen] 23 unit SQ AC-TID 07/21/22 07/27/23 History Sevelamer [Renvela] 800 - 1,600 mg PO TID-W/MEALS 10/17/22 07/27/23 History Simvastatin [Zocor] 40 mg PO HS 10/17/22 07/27/23 History Pantoprazole Sodium [Protonix] 20 mg PO DAILY 05/31/23 07/27/23 History traZODone HCL [Desyrel] 100 mg PO HS PRN 05/31/23 07/27/23 History Folic Acid/Vit B Complex and C 0.8 mg PO HS 07/16/23 07/27/23 History [Nephro-Nav Tablet] Midodrine HCl [ProAmatine] 10 mg PO TID PRN 07/16/23 07/27/23 History carvediloL [Coreg] 25 mg PO BID 07/16/23 07/27/23 History Benzonatate [Tessalon Perles] 100 mg PO TID PRN 07/27/23 07/27/23 History Allergies Allergy/AdvReac Type Severity Reaction Status Date / Time No Known Allergies Allergy Verified 07/27/23 19:54 Physical Exam Vitals: Vital Signs Temp Pulse Pulse Resp BP BP Pulse Ox 07/30/23 09:04 97.4 F L 64 20 164/72 07/30/23 04:00 97.8 F 60 17 144/77 99 07/29/23 23:30 62 16 134/56 99 07/29/23 19:53 98 F 61 18 118/71 98 07/29/23 16:30 97.7 F 61 18 129/58 98 07/29/23 14:37 58 L 18 123/79 100 Intake and Output 07/29/23 07/30/23 07/30/23 22:59 06:59 14:59 Intake Total 59 Balance 59 Intake: Oral 59 Other: # Bowel Movements 1 Weight 136.078 kg 138.1 kg patient is awake, comfortable, no acute distress Alert oriented 3 Examination of the heart S1 and S2 Examination of the lungs bilateral breath sounds are heard Abdomen is soft nontender obese. Examination of lower extremities shows no significant edema [employer] exam grossly intact Results - Lab Results Most recent lab results Calcium 8.1 mg/dL (8.4-10.2) L 07/29/23 03:23 Magnesium 1.6 mg/dL (1.6-2.3) 07/27/23 19:05 07/29/23 03:23 07/29/23 03:23 Assessment and Plan Assessment: 1. End-stage renal disease on hemodialysis on a Saturday schedule via right upper arm AV graft 2. Pseudomonas bacteremia, being followed by ID. Maintained on IV Zosyn. Source is possibly pneumonia. Patient does not have significant urine output. Her AV graft does not have any edema or tenderness. 3. CK D mineral bone disorder 4. Status post recent laparoscopic cholecystectomy on 06/03/2023 with extraction of further gallstones via ERCP postoperatively. Plan: hemodialysis today. Continue antibiotics as per ID. Continue with phosphate binders. Next Thank you for the consultation. We will continue to follow the patient with you during her hospitalization.
[2023-07-30 12:31] LABS: Glucose,Whole Blood 154 mg/dL (70-110)
--- NOTE | 2023-07-30 12:58 | P.PN ---
Subjective Progress Note Date: 07/30/23 Principal diagnosis: Sepsis, pneumonia. This is a 68-year-old female with history of end-stage renal disease, on hemodialysis, patient is familiar to my service, I have seen this patient before for respiratory failure requiring intubation mechanical ventilation, patient came in with 2 days history of not feeling well, some shortness of breath and chills. Minimal dry cough. Patient had no chest pain, no fever, no nausea no vomiting no abdominal pain, patient has been on dialysis and her last dialysis treatment was yesterday. On admission her chest x-ray showed minimal in terstitial changes suggestive of mild interstitial edema, doubt underlying pneumonia as the symptoms are not pointing to pneumonia. Her WBC count was normal 5.9 hemoglobin 10.3 basic metabolic profile is normal electrolytes are normal renal profile showed a BUN of 20 creatinine of 4.06. Patient was noted to be hemodynamically stable, her O2 saturation is 100% on 4 L nasal cannula and 96% on 2 L nasal cannula nonetheless the patient is being admitted, and I was asked to see this patient on consultation back on 06/07/2023, patient had a cardiac arrest post ERCP, patient had pulseless electrical activity, and she had CPR for about 2 to 3 minutes. Back then she was intubated mechanically venti lated, and I extubated the patient a day later patient was eventually discharged on 06/15/23. On 06/18 0 patient was seen in the ER for acute COVID-19 infection, did not require admission to the hospital her main symptom at this time was mostly weakness and cough. On this admission I saw the patient in the ER, and I did not feel very convinced that the patient even needs to be admitted to the hospital. I believe the patient could be managed on outpatient basis and follow-up with her primary care physician Progress note dated July 29, 2023. This is a 68-year-old female who is seen in the emergency department, room 26. She was seen yesterday by my partner in consultation. The patient is currently on 2 L of oxygen. The patient is receiving saline at 20 cc an hour. She continues on Zosyn. Blood cultures are apparently positive, but the organism has not yet been identified. We did ask for a procalcitonin level. Current laboratory data includes a white count of 13, hemoglobin 9.1, hematocrit 28, and platelet count of 195,000. Sodium 133, potassium 3.6, chloride 97, CO2 27, BUN 38, creatinine 5.59. Glucose is 88. Calcium 8.1. C-reactive protein is 24.5, and the procalcitonin level was quite elevated at 58.2. Blood cultures are now revealing gram-negative bacilli. Chest x-ray shows cardiomegaly, with pulmonary vascular congestion. Progress note dated July 30, 2023. 68-year-old female seen in the emergency department, initially. Currently, the patient seems to be doing better. She feels better. The patient is on 2 L of oxygen. She did test positive for Pseudomonas in the bloodstream. She continues on Zosyn. The Pseudomonas is sensitive to Zosyn. She is getting saline at 20 cc an hour. No new laboratory today other than a glucose of 154. Her procalcitonin level was quite elevated at 58.2. Objective - Vital Signs Vital signs: Vital Signs Temp 97.8 F 07/30/23 12:39 Pulse 65 07/30/23 12:39 Resp 16 07/30/23 12:39 BP 146/64 07/30/23 12:39 Pulse Ox 99 07/30/23 04:00 FiO2 Intake & Output 07/29/23 07/30/23 07/30/23 18:59 06:59 18:59 Intake Total 59 Balance 59 Weight 138.1 kg Intake: Oral 59 Other: # Bowel Movements 1 1 - Exam No acute distress, oriented 3. Seen in room 365. Currently on 2 L of oxygen. No respiratory distress. HEENT examination is grossly unremarkable. Mucous membranes are moist. No oral lesions. Neck supple. Full range of motion. No adenopathy thyromegaly or neck vein distention. Cardiovascular examination reveals regular rhythm rate. S1-S2 normal. No S3 or S4. No discernible murmur noted. Heart rate 65 bpm. Lungs reveal clear breath sounds. Breath sounds are equal bilaterally. No adventitious lung sounds including wheezes rhonchi or crackles. Saturations are 99 %. Abdomen is, obese, soft, with bowel sounds. Extremities are intact. No cyanosis clubbing or edema. Skin is without rash or lesion. Neurologic examination is brief but nonfocal. - Labs CBC & Chem 7: 07/29/23 03:23 07/29/23 03:23 Labs: Abnormal Lab Results - Last 24 Hours (Table) 07/29/23 07/29/23 07/29/23 Range/Units 15:48 16:04 16:07 POC Glucose (mg/dL) 61 L 49 L 51 L (70-110) mg/dL 07/29/23 07/30/23 Range/Units 16:27 12:29 POC Glucose (mg/dL) 58 L 154 H (70-110) mg/dL Microbiology - Last 24 Hours (Table) 07/27/23 19:02 Blood Culture Gram Stain - Final Blood Blood Culture - Final Pseudomonas aeruginosa Molecular ID 07/27/23 19:20 Blood Culture Gram Stain - Final Blood Blood Culture - Final Pseudomonas aeruginosa Assessment and Plan Assessment: Pseudomonas bacteremia, currently on Zosyn. Acute tracheobronchitis. Mild interstitial edema, secondary to chronic end-stage renal disease. History of cardiac arrest/PEA, requiring intubation, and mechanical ventilation. Chronic fluid overload. Morbid obesity. Benign essential hypertension. Type 2 diabetes mellitus. History of hypothyroidism. History of choledocholithiasis. History of end-stage renal disease, on hemodialysis. Anemia of chronic disease. Plan: Plan dated July 29, 2023. The patient is seen today in the emergency department, room 26. She continues on Zosyn. The patient's procalcitonin was quite high. Blood cultures were pos itive for gram-negative bacilli. Labs, x-rays, and all medications are reviewed. The patient is waiting for an inpatient hospital bed. She continues on oxygen at 2 L. She is getting saline at 20 cc an hour. She states that she is feeling better today than she was yesterday. No additional recommendations are made at this time. Plan dated July 30, 2023. The patient's blood cultures did come back positive for Pseudomonas aeruginosa. The Pseudomonas is sensitive to Zosyn. The patient's procalcitonin level was quite high. She is feeling better today. She is on 2 L of oxygen. Saturations are 98 to 99%. The patient is receiving saline at 20 cc an hour. We will continue to follow the patient, make recommendations along the way. Prognosis is guarded. Labs, x-rays, and all medications have been reviewed. Time with Patient: Less than 30
--- NOTE | 2023-07-30 15:51 | P.PN ---
Subjective Progress Note Date: 07/29/23 Principal diagnosis: Reason for follow-up is Pseudomonas bacteremia Patient is a 68-year-old female with a past medical history significant for diabetes mellitus hypertension hyperlipidemia MT osteomyelitis CVA TIA former smoker end-stage renal disease on dialysis patient was brought into the hospital for evaluation of increasing shortness of breath, patient did have a fever and hypoxic chest x-ray as well as a pulmonary vascular congestion subsequently noticed to have a positive blood culture with Pseudomonas aeruginosa. On today's evaluation that is 07/29/2023, patient did have resolution of her fever and has been afebrile today, patient is breathing comfortably and is currently on 2 L nasal cannula oxygen, patient denies denies chest pain did have occasional cough patient has heavily nausea no vomiting no abdominal pain and no diarrhea. Patient did have white count of 13.0, creatinine 5.59 procalcitonin is 58.20 Objective - Vital Signs Vital signs: Vital Signs Temp 98.2 F 07/28/23 16:00 Pulse 72 07/29/23 09:00 Resp 16 07/29/23 09:00 BP 130/68 07/29/23 09:00 Pulse Ox 98 07/29/23 09:00 FiO2 Intake & Output 07/28/23 07/29/23 07/29/23 18:59 06:59 18:59 Intake Total 410 Balance 410 Intake: Intake, IV Titration 160 Amount Sodium Chloride 0.9% 1, 160 000 ml @ 20 mls/hr IV . Q24H [facility] Rx#:[id number] Oral 250 Other: # Bowel Movements 1 - Exam GENERAL DESCRIPTION: An elderly female lying in bed in no distress RESPIRATORY SYSTEM: Unlabored breathing , decreased breath sounds at bases HEART: S1 S2 regular rate and rhythm , ABDOMEN: Soft , no tenderness EXTREMITIES: Right arm AV fistula site with no cellulitis - Labs CBC & Chem 7: 07/29/23 03:23 07/29/23 03:23 Labs: Abnormal Lab Results - Last 24 Hours (Table) 07/28/23 07/29/23 07/29/23 Range/Units 17:28 01:51 02:41 WBC (3.8-10.6) k/uL RBC (3.80-5.40) m/uL Hgb (11.4-16.0) gm/dL Hct (34.0-46.0) % MCV (80.0-100.0) fL Neutrophils # (1.3-7.7) k/uL Sodium (137-145) mmol/L Chloride (98-107) mmol/L BUN (7-17) mg/dL Creatinine (0.52-1.04) mg/dL Glucose (74-99) mg/dL POC Glucose (mg/dL) 194 H 61 L 59 L (70-110) mg/dL Calcium (8.4-10.2) mg/dL C-Reactive Protein (<1.0) mg/dL Procalcitonin (0.02-0.09) ng/mL 07/29/23 07/29/23 07/29/23 Range/Units 02:42 03:23 03:23 WBC 13.0 H (3.8-10.6) k/uL RBC 2.64 L (3.80-5.40) m/uL Hgb 9.1 L (11.4-16.0) gm/dL Hct 28.0 L (34.0-46.0) % MCV 105.9 H (80.0-100.0) fL Neutrophils # 9.5 H (1.3-7.7) k/uL Sodium 133 L (137-145) mmol/L Chloride 97 L (98-107) mmol/L BUN 38 H (7-17) mg/dL Creatinine 5.59 H (0.52-1.04) mg/dL Glucose 57 L (74-99) mg/dL POC Glucose (mg/dL) 66 L (70-110) mg/dL Calcium 8.1 L (8.4-10.2) mg/dL C-Reactive Protein 24.5 H (<1.0) mg/dL Procalcitonin (0.02-0.09) ng/mL 07/29/23 07/29/23 07/29/23 Range/Units 03:23 06:49 07:43 WBC (3.8-10.6) k/uL RBC (3.80-5.40) m/uL Hgb (11.4-16.0) gm/dL Hct (34.0-46.0) % MCV (80.0-100.0) fL Neutrophils # (1.3-7.7) k/uL Sodium (137-145) mmol/L Chloride (98-107) mmol/L BUN (7-17) mg/dL Creatinine (0.52-1.04) mg/dL Glucose (74-99) mg/dL POC Glucose (mg/dL) 122 H 148 H (70-110) mg/dL Calcium (8.4-10.2) mg/dL C-Reactive Protein (<1.0) mg/dL Procalcitonin 58.20 H (0.02-0.09) ng/mL Microbiology - Last 24 Hours (Table) 07/27/23 19:20 Blood Culture Gram Stain - Preliminary Blood Blood Culture - Preliminary Gram Neg Bacilli 07/27/23 19:02 Blood Culture Gram Stain - Preliminary Blood Blood Culture - Preliminary Molecular ID Assessment and Plan (1) Bacteremia due to Pseudomonas Current Visit: Yes Status: Acute Code(s): R78.81 - BACTEREMIA; B96.5 - PSEUDOMONAS (MALLEI) CAUSING DISEASES CLASSD ELSR SNOMED Code(s): 3349329521 (2) Pneumonia Current Visit: Yes Status: Acute Code(s): J18.9 - PNEUMONIA, UNSPECIFIED ORGANISM SNOMED Code(s): 033086538 Plan: 1patient presented hospital with increasing shortness of breath and this patient did have a cough patient did have a low-grade fever and significant hypoxemia with evidence of infiltrate on chest x-ray high likely suspicious for pneumonia possible gram-negative. 2patient with Pseudomonas aeruginosa bacteremia source likely pneumonia as currently no other obvious focus of infection and patient abdominal soft on clinical examination and no evidence of any cellulitis at the dialysis fistula site. 3blood cultures has been repeated document clearance of her bacteremia. 4patient did have elevated CRP and procalcitonin 5-patient to continue with Zosyn 3.375gm q12 hours and monitor clinical course closely Dictation was produced using [employer]weit[employer] dictation software. please excuse any gramma tical, word or spelling errors. Time with Patient: Less than 30
--- NOTE | 2023-07-30 15:52 | P.PN ---
Subjective Progress Note Date: 07/30/23 Principal diagnosis: Reason for follow-up is Pseudomonas bacteremia Patient is a 68-year-old female with a past medical history significant for diabetes mellitus hypertension hyperlipidemia UT osteomyelitis CVA TIA former smoker end-stage renal disease on dialysis patient was brought into the hospital for evaluation of increasing shortness of breath, patient did have a fever and hypoxic chest x-ray as well as a pulmonary vascular congestion subsequently noticed to have a positive blood culture with Pseudomonas aeruginosa. On today's evaluation that is 07/30/2023,the patient denies any fever or any chills, patient is breathing comfortably on 2 L nasal cannula oxygen, the patient denies chest pain shortness of breath and no significant cough, patient denies abdominal pain, no nausea vomiting or diarrhea. Feeling better today. No lab draw today repeat blood cultures pending Objective - Vital Signs Vital signs: Vital Signs Temp 97.4 F L 07/30/23 09:04 Pulse 64 07/30/23 09:04 Resp 20 07/30/23 09:04 BP 164/72 07/30/23 09:04 Pulse Ox 99 07/30/23 04:00 FiO2 Intake & Output 07/29/23 07/30/23 07/30/23 18:59 06:59 18:59 Intake Total 59 Balance 59 Weight 138.1 kg Intake: Oral 59 Other: # Bowel Movements 1 - Exam GENERAL DESCRIPTION: An elderly female lying in bed in no distress RESPIRATORY SYSTEM: Unlabored breathing , decreased breath sounds at bases HEART: S1 S2 regular rate and rhythm , ABDOMEN: Soft , no tenderness EXTREMITIES: Right arm AV fistula site with no cellulitis - Labs CBC & Chem 7: 07/29/23 03:23 07/29/23 03:23 Labs: Abnormal Lab Results - Last 24 Hours (Table) 07/29/23 07/29/23 07/29/23 Range/Units 15:48 16:04 16:07 POC Glucose (mg/dL) 61 L 49 L 51 L (70-110) mg/dL 07/29/23 Range/Units 16:27 POC Glucose (mg/dL) 58 L (70-110) mg/dL Microbiology - Last 24 Hours (Table) 07/27/23 19:02 Blood Culture Gram Stain - Final Blood Blood Culture - Final Pseudomonas aeruginosa Molecular ID 07/27/23 19:20 Blood Culture Gram Stain - Final Blood Blood Culture - Final Pseudomonas aeruginosa Assessment and Plan (1) Bacteremia due to Pseudomonas Current Visit: Yes Status: Acute Code(s): R78.81 - BACTEREMIA; B96.5 - PSEUDOMONAS (MALLEI) CAUSING DISEASES CLASSD [id number] SNOMED Code(s): 0849241455 (2) Pneumonia Current Visit: Yes Status: Acute Code(s): J18.9 - PNEUMONIA, UNSPECIFIED ORGANISM SNOMED Code(s): 614393588 Plan: 1patient presented hospital with increasing shortness of breath and this patient did have a cough patient did have a low-grade fever and significant hypoxemia with evidence of infiltrate on chest x-ray high likely suspicious for pneumonia possible gram-negative. 2patient with Pseudomonas aeruginosa bacteremia source likely pneumonia as currently no other obvious focus of infection and patient abdominal soft on clinical examination and no evidence of any cellulitis at the dialysis fistula site. 3blood cultures has been repeated and so far negative 4patient did have elevated CRP and procalcitonin 5-patient to continue with Zosyn 3.375gm q12 hours plan is to get a midline and a short course of IV antibiotic on discharge Dictation was produced using [employer] dictation software. please excuse any grammatical, word or spelling errors. Time with Patient: Less than 30
[2023-07-30 16:18] LABS: Glucose,Whole Blood 173 mg/dL (70-110)
[2023-07-30 18:34] LABS: African American GFR (CKD) 15 (>60 ml/min/1.73 sqM); Anion Gap 3 mmol/L; Blood Urea Nitrogen 23 mg/dL (7-17); Calcium 7.8 mg/dL (8.4-10.2); Carbon Dioxide 31 mmol/L (22-30); Chloride 98 mmol/L (98-107); Glucose 136 mg/dL (74-99); Non-African American GFR(CKD) 13 (>60 ml/min/1.73 sqM); Potassium 3.4 mmol/L (3.5-5.1); Sodium 132 mmol/L (137-145)
[2023-07-30] MEDS: POTASSIUM CHLORIDE ER 20 MEQ TAB.ER PO STA (19:51)
[2023-07-30 20:38] LABS: Glucose,Whole Blood 151 mg/dL (70-110)
[2023-07-31 06:18] LABS: Glucose,Whole Blood 176 mg/dL (70-110)
[2023-07-31] MEDS: ACETAMINOPHEN TAB 325 MG TAB PO PRN (06:35)
--- NOTE | 2023-07-31 06:41 | P.PN ---
Subjective Progress Note Date: 07/30/23 HISTORY OF PRESENT ILLNESS: This is a 68-year-old female with history of end-stage renal disease, on hemodialysis, patient is familiar to my service, I have seen this patient before for respiratory failure requiring intubation mechanical ventilation, patient came in with 2 days history of not feeling well, some shortness of breath and chills. Minimal dry cough. Patient had no chest pain, no fever, no nausea no vomiting no abdominal pain, patient has been on dialysis and her last dialysis treatment was yesterday. On admission her chest x-ray showed minimal interstitial changes suggestive of mild interstitial edema, doubt underlying pneumonia as the symptoms are not pointing to pneumonia. Her WBC count was normal 5.9 hemoglobin 10.3 basic metabolic profile is normal electrolytes are normal renal profile showed a BUN of 20 creatinine of 4.06. Patient was noted to be hemodynamically stable, her O2 saturation is 100% on 4 L nasal cannula and 96% on 2 L nasal cannula nonetheless the patient is being admitted, and I was asked to see this patient on consultation back on 06/07/2023, patient had a cardiac arrest post ERCP, patient had pulseless electrical activity, and she had CPR for about 2 to 3 minutes. Back then she was intubated mechanically ventilated, and I extubated the patient a day later patient was eventually discharged on 06/15/23. On 06/18 0 patient was seen in the ER for acute COVID-19 infection, did not require admission to the hospital her main symptom at this time was mostly weakness and cough. On this admission I saw the patient in the ER, and I did not feel very convinced that the patient even needs to be admitted to the hospital. I believe the patient could be managed on outpatient basis and follow-up with her primary care physician 07/29/2023:Patient was seen infectious disease yesterday with a culture being positive taking consideration she had Pseudomonas aeruginosa infection from last time and this is probably will be an extension of breath blood culture gram-positive so far not final yet but patient antibiotic was switched to Zosyn 3.375 g every 12 hours with the fluid from sensitivity. Consult nephrology for continued care of hemodialysis. Patient is hemodynamically More stable. 07/30/2023: She is remain overflowing Emergency Department on 2 L of O2 she has large sided pneumonia and in mild respiratory distress, her procalcitonin was high at 58.2 with culture positive for Pseudomonas aeruginosa patient antibiotic was changed to Zosyn currently. Patient is doing well otherwise send not in any respiratory distress her white blood cell is down slight bit. Continue to have mild interstitial edema will do dialysis today. Still seen pulmonary, infectious disease and nephrology dialysis will be done today. REVIEW OF SYSTEMS: REVIEW OF SYSTEMS: CONSTITUTIONAL: No fever, no malaise, no fatigue. HEENT: No recent visual problems or hearing problems. Denied any sore throat. CARDIOVASCULAR: No chest pain, orthopnea, PND, no palpitations, no syncope. PULMONARY: No shortness of breath, no cough, no hemoptysis. GASTROINTESTINAL: No diarrhea, no nausea, no vomiting, no abdominal pain. NEUROLOGICAL: No headaches, no weakness, no numbness. HEMATOLOGICAL: Denies any bleeding or petechiae. GENITOURINARY: Denies any burning micturition, frequency, or urgency. MUSCULOSKELETAL/RHEUMATOLOGICAL: Denies any joint pain, swelling, or any muscle pain. ENDOCRINE: Denies any polyuria or polydipsia. PHYSICAL EXAMINATION: Neck HEENT: Supple, no lymphadenopathy, no thyroid enlargement, no carotid bruits. Lungs: Symmetrical chest expansion, good breath sound bilaterally minimal crackles at the bases Chest Wall: No chest wall deformity, no tenderness. Heart: S1-S2, no S3 gallop. Murmur. Abdomen: Soft nontender no megaly no rebound, suspect small ascites. Extremities: Trace of bipedal edema Pulses: Distal pulses bilaterally slightly diminished. Skin: Skin color, texture, tugor normal, no rashes or lesions. Neurologic: Awake alert and oriented x 3 no gross focal deficit Psychiatric: Alert oriented x 3, normal mood normal affect normal mental status examination. ASSESSMENT AND PLAN: _Severe gram-negative pneumonia which could aspiration as well take special consideration the recent hospitalization that patient was in for extended period of time with a gram-negative bacteremia at the time. With the culture of Pseudomonas she is treated with Zosyn at this point still seen infectious disease. _ Bacteremia/sepsis; blood cultures positive for gram-negative bacilli; was swi tched to Zosyn continue current antibiotics. _ Mild interstitial edema, with chronic fluid overload; acute CHF versus fluid overload given chronic kidney disease; continue to move more fluid with hem odialysis. _ Diabetes mellitus type 2 with long-term insulin use; Levemir 33 units SQ twice daily along with NovoLog 23 units AC 3 times daily; monitor Accu-Cheks with insulin sliding scale as needed _Recent long hospitalization with complication related to cholecystectomy and common duct stone complicated with acute respiratory failure and sepsis. _ End-stage renal disease/HD 3 times a week will consult nephrology. _Hyperlipidemia; Lipitor 20 mg p.o. nightly _Hypothyroidism; continue with home dose of levothyroxine CODE STATUS: Full code. Prognosis: Fair. Discussion: Patient seen infectious disease, nephrology and pulmonary, continue current antibiotics repeat chest x-ray repeat CBC tomorrow continue dialysis to remove more fluid and reduce fluid overload and interstitial retention. Objective - Vital Signs Vital signs: Vital Signs Temp 97.8 F 07/30/23 04:00 Pulse 60 07/30/23 04:00 Resp 17 07/30/23 04:00 BP 144/77 07/30/23 04:00 Pulse Ox 99 07/30/23 04:00 FiO2 Intake & Output 07/29/23 07/30/23 07/30/23 18:59 06:59 18:59 Weight 138.1 kg Other: # Bowel Movements 1 - Labs CBC & Chem 7: 07/29/23 03:23 07/30/23 17:56 Labs: Abnormal Lab Results - Last 24 Hours (Table) 07/29/23 07/29/23 07/29/23 Range/Units 03:23 15:48 16:04 POC Glucose (mg/dL) 61 L 49 L (70-110) mg/dL Procalcitonin 58.20 H (0.02-0.09) ng/mL 07/29/23 07/29/23 Range/Units 16:07 16:27 POC Glucose (mg/dL) 51 L 58 L (70-110) mg/dL Procalcitonin (0.02-0.09) ng/mL Microbiology - Last 24 Hours (Table) 07/27/23 19:20 Blood Culture Gram Stain - Preliminary Blood Blood Culture - Preliminary Gram Neg Bacilli
[2023-07-31 11:26] LABS: Glucose,Whole Blood 213 mg/dL (70-110)
--- NOTE | 2023-07-31 11:46 | P.PN ---
Subjective Progress Note Date: 07/31/23 Principal diagnosis: Sepsis, pneumonia. This is a 68-year-old female with history of end-stage renal disease, on hemodialysis, patient is familiar to my service, I have seen this patient before for respiratory failure requiring intubation mechanical ventilation, patient came in with 2 days history of not feeling well, some shortness of breath and chills. Minimal dry cough. Patient had no chest pain, no fever, no nausea no vomiting no abdominal pain, patient has been on dialysis and her last dialysis treatment was yesterday. On admission her chest x-ray showed minimal in terstitial changes suggestive of mild interstitial edema, doubt underlying pneumonia as the symptoms are not pointing to pneumonia. Her WBC count was normal 5.9 hemoglobin 10.3 basic metabolic profile is normal electrolytes are normal renal profile showed a BUN of 20 creatinine of 4.06. Patient was noted to be hemodynamically stable, her O2 saturation is 100% on 4 L nasal cannula and 96% on 2 L nasal cannula nonetheless the patient is being admitted, and I was asked to see this patient on consultation back on 06/07/2023, patient had a cardiac arrest post ERCP, patient had pulseless electrical activity, and she had CPR for about 2 to 3 minutes. Back then she was intubated mechanically venti lated, and I extubated the patient a day later patient was eventually discharged on 06/15/23. On 06/18 0 patient was seen in the ER for acute COVID-19 infection, did not require admission to the hospital her main symptom at this time was mostly weakness and cough. On this admission I saw the patient in the ER, and I did not feel very convinced that the patient even needs to be admitted to the hospital. I believe the patient could be managed on outpatient basis and follow-up with her primary care physician Progress note dated July 29, 2023. This is a 68-year-old female who is seen in the emergency department, room 26. She was seen yesterday by my partner in consultation. The patient is currently on 2 L of oxygen. The patient is receiving saline at 20 cc an hour. She continues on Zosyn. Blood cultures are apparently positive, but the organism has not yet been identified. We did ask for a procalcitonin level. Current laboratory data includes a white count of 13, hemoglobin 9.1, hematocrit 28, and platelet count of 195,000. Sodium 133, potassium 3.6, chloride 97, CO2 27, BUN 38, creatinine 5.59. Glucose is 88. Calcium 8.1. C-reactive protein is 24.5, and the procalcitonin level was quite elevated at 58.2. Blood cultures are now revealing gram-negative bacilli. Chest x-ray shows cardiomegaly, with pulmonary vascular congestion. Progress note dated July 30, 2023. 68-year-old female seen in the emergency department, initially. Currently, the patient seems to be doing better. She feels better. The patient is on 2 L of oxygen. She did test positive for Pseudomonas in the bloodstream. She continues on Zosyn. The Pseudomonas is sensitive to Zosyn. She is getting saline at 20 cc an hour. No new laboratory today other than a glucose of 154. Her procalcitonin level was quite elevated at 58.2. Progress note dated July 31, 2023. 68-year-old female seen today in room 365. Currently, she is on room air. Saturations are 95%. She is not receiving any IV fluids. Her blood cultures were positive for Pseudomonas aeruginosa. She continues on Zosyn. Clinically, she is feeling much better. No new labs today other than a glucose of 213. Objective - Vital Signs Vital signs: Vital Signs Temp 97.8 F 07/31/23 08:58 Pulse 70 07/31/23 08:58 Resp 16 07/31/23 08:58 BP 143/71 07/31/23 08:58 Pulse Ox 95 07/31/23 08:58 FiO2 Intake & Output 07/30/23 07/31/23 07/31/23 18:59 06:59 18:59 Intake Total 579 500 180 Output Total 0 2500 Balance 579 -2000 180 Weight 136.4 kg Intake: Oral 579 180 Hemodialysis 500 Output: Urine 0 0 Hemodialysis 2500 Other: # Bowel Movements 1 - Exam No acute distress, oriented 3. Seen in room 365. Currently on room air. No r espiratory distress. HEENT examination is grossly unremarkable. Mucous membranes are moist. No oral lesions. Neck supple. Full range of motion. No adenopathy thyromegaly or neck vein distention. Cardiovascular examination reveals regular rhythm rate. S1-S2 normal. No S3 or S4. No discernible murmur noted. Heart rate 70 bpm. Lungs reveal clear breath sounds. Breath sounds are equal bilaterally. No adventitious lung sounds including wheezes rhonchi or crackles. Saturations are 95 %. Abdomen is, obese, soft, with bowel sounds. Extremities are intact. No cyanosis clubbing or edema. Skin is without rash or lesion. Neurologic examination is brief but nonfocal. - Labs CBC & Chem 7: 07/29/23 03:23 07/30/23 17:56 Labs: Abnormal Lab Results - Last 24 Hours (Table) 07/30/23 07/30/23 07/30/23 Range/Units 12:29 16:17 17:56 Sodium 132 L (137-145) mmol/L Potassium 3.4 L (3.5-5.1) mmol/L Carbon Dioxide 31 H (22-30) mmol/L BUN 23 H (7-17) mg/dL Creatinine 3.47 H (0.52-1.04) mg/dL Glucose 136 H (74-99) mg/dL POC Glucose (mg/dL) 154 H 173 H (70-110) mg/dL Calcium 7.8 L (8.4-10.2) mg/dL 07/30/23 07/31/23 07/31/23 Range/Units 20:36 06:17 11:25 Sodium (137-145) mmol/L Potassium (3.5-5.1) mmol/L Carbon Dioxide (22-30) mmol/L BUN (7-17) mg/dL Creatinine (0.52-1.04) mg/dL Glucose (74-99) mg/dL POC Glucose (mg/dL) 151 H 176 H 213 H (70-110) mg/dL Calcium (8.4-10.2) mg/dL Microbiology - Last 24 Hours (Table) 07/29/23 03:23 Blood Culture - Preliminary Blood 07/27/23 19:02 Blood Culture Gram Stain - Final Blood Blood Culture - Final Pseudomonas aeruginosa Molecular ID 07/27/23 19:20 Blood Culture Gram Stain - Final Blood Blood Culture - Final Pseudomonas aeruginosa Assessment and Plan Assessment: Pseudomonas bacteremia, currently on Zosyn. Acute tracheobronchitis. Mild interstitial edema, secondary to chronic end-stage renal disease. History of cardiac arrest/PEA, requiring intubation, and mechanical ventilation. Chronic fluid overload. Morbid obesity. Benign essential hypertension. Type 2 diabetes mellitus. History of hypothyroidism. History of choledocholithiasis. History of end-stage renal disease, on hemodialysis. Anemia of chronic disease. Plan: Plan dated July 29, 2023. The patient is seen today in the emergency department, room 26. She continues on Zosyn. The patient's procalcitonin was quite high. Blood cultures were positive for gram-negative bacilli. Labs, x-rays, and all medications are reviewed. The patient is waiting for an inpatient hospital bed. She continues on oxygen at 2 L. She is getting saline at 20 cc an hour. She states that she is feeling better today than she was yesterday. No additional recommendations are made at this time. Plan dated July 30, 2023. The patient's blood cultures did come back positive for Pseudomonas aeruginosa. The Pseudomonas is sensitive to Zosyn. The patient's procalcitonin level was quite high. She is feeling better today. She is on 2 L of oxygen. Saturations are 98 to 99%. The patient is receiving saline at 20 cc an hour. We will cont inue to follow the patient, make recommendations along the way. Prognosis is guarded. Labs, x-rays, and all medications have been reviewed. Plan dated July 31, 2023. The patient is currently on Zosyn, blood cultures were positive for Pseudomonas aeruginosa. The Pseudomonas is sensitive to Zosyn. The patient's labs, x-rays, and medications are reviewed. The patient is currently now on room air. Saturations are 95%. She is not receiving any IV fluids. Clinically, she is improved. She is hoping to go home in the next 24 to 48 hours. We will continue to follow the patient, make recommendations where appropriate. Prognosis is guarded. Time with Patient: Less than 30
[2023-07-31] MEDS: INSULIN ASPART (NovoLOG) 100 UNIT/ML VIAL SQ SCH (11:52)
[2023-07-31 16:52] LABS: Glucose,Whole Blood 221 mg/dL (70-110)
--- NOTE | 2023-07-31 18:49 | P.PN ---
Subjective Patient is seen for follow-up for end-stage renal disease. Tolerated hemodialysis well yesterday. No significant complaints today. Repeat blood cultures are negative thus far. Tolerating oral intake. Objective - Vital Signs Vital signs: Vital Signs Temp 97.8 F 07/31/23 11:51 Pulse 68 07/31/23 17:08 Resp 16 07/31/23 17:08 BP 130/50 07/31/23 17:08 Pulse Ox 97 07/31/23 17:08 FiO2 Intake & Output 07/30/23 07/31/23 07/31/23 18:59 06:59 18:59 Intake Total 579 500 598 Output Total 0 2500 Balance 579 -2000 598 Weight 136.4 kg Intake: Oral 579 598 Hemodialysis 500 Output: Urine 0 0 Hemodialysis 2500 Other: # Bowel Movements 1 - Exam patient is awake, comfortable, no acute distress Alert oriented 3 Examination of the heart S1 and S2 Examination of the lungs bilateral breath sounds are heard Abdomen is soft nontender obese. Examination of lower extremities shows no significant edema LINEMAN A CLASS exam grossly intact - Labs CBC & Chem 7: 07/29/23 03:23 07/30/23 17:56 Labs: Abnormal Lab Results - Last 24 Hours (Table) 07/30/23 07/31/23 07/31/23 Range/Units 20:36 06:17 11:25 POC Glucose (mg/dL) 151 H 176 H 213 H (70-110) mg/dL 07/31/23 Range/Units 16:50 POC Glucose (mg/dL) 221 H (70-110) mg/dL Microbiology - Last 24 Hours (Table) 07/29/23 03:23 Blood Culture - Preliminary Blood Assessment and Plan Assessment: 1. End-stage renal disease on hemodialysis on a Saturday schedule via right upper arm AV graft 2. Pseudomonas bacteremia, being followed by ID. Maintained on IV Zosyn. Source is possibly pneumonia. Patient does not have significant urine output. Her AV graft does not have any erythema or tenderness. 3. CK D mineral bone disorder 4. Status post recent laparoscopic cholecystectomy on 06/03/2023 with extraction of further gallstones via ERCP postoperatively. Plan: hemodialysis in a.m. Encouraged to increase oral intake. Continue with antibiotics
[2023-07-31 20:35] LABS: Glucose,Whole Blood 228 mg/dL (70-110)
[2023-07-31] MEDS: INSULIN DETEMIR (LEVEMIR) 100 UNIT/ML SYR SQ SCH (20:46)
[2023-08-01 06:03] LABS: Glucose,Whole Blood 144 mg/dL (70-110)
--- NOTE | 2023-08-01 06:05 | P.PN ---
Subjective Progress Note Date: 07/31/23 HISTORY OF PRESENT ILLNESS: This is a 68-year-old female with history of end-stage renal disease, on hemodialysis, patient is familiar to my service, I have seen this patient before for respiratory failure requiring intubation mechanical ventilation, patient came in with 2 days history of not feeling well, some shortness of breath and chills. Minimal dry cough. Patient had no chest pain, no fever, no nausea no vomiting no abdominal pain, patient has been on dialysis and her last dialysis treatment was yesterday. On admission her chest x-ray showed minimal interstitial changes suggestive of mild interstitial edema, doubt underlying pneumonia as the symptoms are not pointing to pneumonia. Her WBC count was normal 5.9 hemoglobin 10.3 basic metabolic profile is normal electrolytes are normal renal profile showed a BUN of 20 creatinine of 4.06. Patient was noted to be hemodynamically stable, her O2 saturation is 100% on 4 L nasal cannula and 96% on 2 L nasal cannula nonetheless the patient is being admitted, and I was asked to see this patient on consultation back on 06/07/2023, patient had a cardiac arrest post ERCP, patient had pulseless electrical activity, and she had CPR for about 2 to 3 minutes. Back then she was intubated mechanically ventilated, and I extubated the patient a day later patient was eventually discharged on 06/15/23. On 06/18 0 patient was seen in the ER for acute COVID-19 infection, did not require admission to the hospital her main symptom at this time was mostly weakness and cough. On this admission I saw the patient in the ER, and I did not feel very convinced that the patient even needs to be admitted to the hospital. I believe the patient could be managed on outpatient basis and follow-up with her primary care physician 07/29/2023:Patient was seen infectious disease yesterday with a culture being positive taking consideration she had Pseudomonas aeruginosa infection from last time and this is probably will be an extension of breath blood culture gram-positive so far not final yet but patient antibiotic was switched to Zosyn 3.375 g every 12 hours with the fluid from sensitivity. Consult nephrology for continued care of hemodialysis. Patient is hemodynamically More stable. 07/30/2023: She is remain overflowing Emergency Department on 2 L of O2 she has large sided pneumonia and in mild respiratory distress, her procalcitonin was high at 58.2 with culture positive for Pseudomonas aeruginosa patient antibiotic was changed to Zosyn currently. Patient is doing well otherwise send not in any respiratory distress her white blood cell is down slight bit. Continue to have mild interstitial edema will do dialysis today. Still seen pulmonary, infectious disease and nephrology dialysis will be done today. 07/31/2023: Still been treated for bacteremia with Pseudomonas in her culture most likely source of pneumonia no other source possible at this point her s ystolic is clear, patient does not make any urine despite the recent surgery from May which seem like little bit long shot to have bacteremia from her gallbladder surgery and ERCP with stone extraction at the time. Continue hemodialysis on time shortness of breath has improved. Her blood sugar is fluctuating slight. Making adjustment of her medication and continue current management for her pneumonia and tracheobronchitis, continue to follow infectious disease waiting for the second culture. Otherwise overall patient is feeling better white blood cell is not that high we will repeat another CBC tomorrow kidney function and dialysis remain same with lactic acid dropped down. Her procalcitonin was extremely high reason why aggressive antibiotic still will be a better choice. Eventually patient might be switched to oral levofloxacin if possible for the last part of her management. Patient expected to be discharged home she does not require any help like last time that continue at least to be reviewed more active with PT. REVIEW OF SYSTEMS: REVIEW OF SYSTEMS: CONSTITUTIONAL: No fever, no malaise, no fatigue. HEENT: No recent visual problems or hearing problems. Denied any sore throat. CARDIOVASCULAR: No chest pain, orthopnea, PND, no palpitations, no syncope. PULMONARY: No shortness of breath, no cough, no hemoptysis. GASTROINTESTINAL: No diarrhea, no nausea, no vomiting, no abdominal pain. NEUROLOGICAL: No headaches, no weakness, no numbness. HEMATOLOGICAL: Denies any bleeding or petechiae. GENITOURINARY: Denies any burning micturition, frequency, or urgency. MUSCULOSKELETAL/RHEUMATOLOGICAL: Denies any joint pain, swelling, or any muscle pain. ENDOCRINE: Denies any polyuria or polydipsia. PHYSICAL EXAMINATION: Neck HEENT: Supple, no lymphadenopathy, no thyroid enlargement, no carotid bruits. Lungs: Symmetrical chest expansion, good breath sound bilaterally minimal crackles at the bases Chest Wall: No chest wall deformity, no tenderness. Heart: S1-S2, no S3 gallop. Murmur. Abdomen: Soft nontender no megaly no rebound, suspect small ascites. Extremities: Trace of bipedal edema Pulses: Distal pulses bilaterally slightly diminished. Skin: Skin color, texture, tugor normal, no rashes or lesions. Neurologic: Awake alert and oriented x 3 no gross focal deficit Psychiatric: Alert oriented x 3, normal mood normal affect normal mental status examination. ASSESSMENT AND PLAN: _Severe gram-negative pneumonia which could aspiration as well take special consideration the recent hospitalization that patient was in for extended period of time with a gram-negative bacteremia at the time. With the culture of Pseudomonas she is treated with Zosyn at this point still seen infectious disease. This is still seem to be the only source of infection. _ Bacteremia/sepsis; blood cultures positive for gram-negative bacilli; was switched to Zosyn continue current antibiotics.Source is most likely pneumonia no other finding at this point. _ Mild interstitial edema, with chronic fluid overload; acute CHF versus fluid overload given chronic kidney disease; continue to move more fluid with hemodialysis. _ Diabetes mellitus type 2 with long-term insulin use; Levemir 33 units SQ twice daily along with NovoLog 23 units AC 3 times daily; monitor Accu-Cheks with insulin sliding scale as needed _Recent long hospitalization with complication related to cholecystectomy and common duct stone complicated with acute respiratory failure and sepsis. _ End-stage renal disease/HD 3 times a week will consult nephrology. _Hyperlipidemia; Lipitor 20 mg p.o. nightly _Hypothyroidism; continue with home dose of levothyroxine. _Debility: Will try her best with physical therapy to avoid severe stiffness might require more help. CODE STATUS: Full code. Prognosis: Fair. Discussion: Continue IV antibiotics, continue dialysis, waiting for infectious disease to decide on the final plan with antibiotic management and expected discharge probably around or Saturday. Objective - Vital Signs Vital signs: Vital Signs Temp 98 F 07/30/23 20:52 Pulse 68 07/31/23 04:00 Resp 16 07/31/23 04:00 BP 144/63 07/31/23 04:00 Pulse Ox 97 07/31/23 04:00 FiO2 Intake & Output 07/30/23 07/30/23 07/31/23 06:59 18:59 06:59 Intake Total 579 500 Output Total 0 2500 Balance 579 -2000 Weight 138.1 kg 136.4 kg Intake: Oral 579 Hemodialysis 500 Output: Urine 0 0 Hemodialysis 2500 Other: # Bowel Movements 1 - Labs CBC & Chem 7: 07/29/23 03:23 07/30/23 17:56 Labs: Abnormal Lab Results - Last 24 Hours (Table) 07/30/23 07/30/23 07/30/23 Range/Units 12:29 16:17 17:56 Sodium 132 L (137-145) mmol/L Potassium 3.4 L (3.5-5.1) mmol/L Carbon Dioxide 31 H (22-30) mmol/L BUN 23 H (7-17) mg/dL Creatinine 3.47 H (0.52-1.04) mg/dL Glucose 136 H (74-99) mg/dL POC Glucose (mg/dL) 154 H 173 H (70-110) mg/dL Calcium 7.8 L (8.4-10.2) mg/dL 07/30/23 07/31/23 Range/Units 20:36 06:17 Sodium (137-145) mmol/L Potassium (3.5-5.1) mmol/L Carbon Dioxide (22-30) mmol/L BUN (7-17) mg/dL Creatinine (0.52-1.04) mg/dL Glucose (74-99) mg/dL POC Glucose (mg/dL) 151 H 176 H (70-110) mg/dL Calcium (8.4-10.2) mg/dL Microbiology - Last 24 Hours (Table) 07/29/23 03:23 Blood Culture - Preliminary Blood 07/27/23 19:02 Blood Culture Gram Stain - Final Blood Blood Culture - Final Pseudomonas aeruginosa Molecular ID 07/27/23 19:20 Blood Culture Gram Stain - Final Blood Blood Culture - Final Pseudomonas aeruginosa
--- NOTE | 2023-08-01 10:40 | P.PN ---
Subjective Patient is seen for follow-up for end-stage renal disease. No significant complaints today. seen on hemodialysis. Tolerating treatment well. Objective - Vital Signs Vital signs: Vital Signs Temp 97.6 F 08/01/23 08:00 Pulse 78 08/01/23 08:00 Resp 17 08/01/23 08:00 BP 180/81 08/01/23 08:00 Pulse Ox 95 08/01/23 08:00 FiO2 Intake & Output 07/31/23 08/01/23 08/01/23 18:59 06:59 18:59 Intake Total 598 0 120 Output Total 0 Balance 598 0 120 Weight 135.4 kg Intake: Oral 598 0 120 Output: Urine 0 Other: # Voids 1 2 - Exam patient is awake, comfortable, no acute distress Alert oriented 3 abdomen is soft Examination of lower extremities shows no significant edema [employer] exam grossly intact - Labs CBC & Chem 7: 07/29/23 03:23 07/30/23 17:56 Labs: Abnormal Lab Results - Last 24 Hours (Table) 07/31/23 07/31/23 07/31/23 Range/Units 11:25 16:50 20:34 POC Glucose (mg/dL) 213 H 221 H 228 H (70-110) mg/dL 08/01/23 Range/Units 06:01 POC Glucose (mg/dL) 144 H (70-110) mg/dL Microbiology - Last 24 Hours (Table) 07/29/23 03:23 Blood Culture - Preliminary Blood Assessment and Plan Assessment: 1. End-stage renal disease on hemodialysis on a Saturday schedule via right upper arm AV graft 2. Pseudomonas bacteremia, being followed by ID. Maintained on IV Zosyn. Source is possibly pneumonia. Patient does not have significant urine output. Her AV graft does not have any erythema or tenderness. 3. CK D mineral bone disorder 4. Status post recent laparoscopic cholecystectomy on 06/03/2023 with extraction of further gallstones via ERCP postoperatively. Plan: hemodialysis on a Saturday schedule. Encouraged to increase oral intake. Continue with antibiotics
--- NOTE | 2023-08-01 11:30 | P.PN ---
Subjective Progress Note Date: 08/01/23 Principal diagnosis: Sepsis, pneumonia. This is a 68-year-old female with history of end-stage renal disease, on hemodialysis, patient is familiar to my service, I have seen this patient before for respiratory failure requiring intubation mechanical ventilation, patient came in with 2 days history of not feeling well, some shortness of breath and chills. Minimal dry cough. Patient had no chest pain, no fever, no nausea no vomiting no abdominal pain, patient has been on dialysis and her last dialysis treatment was yesterday. On admission her chest x-ray showed minimal in terstitial changes suggestive of mild interstitial edema, doubt underlying pneumonia as the symptoms are not pointing to pneumonia. Her WBC count was normal 5.9 hemoglobin 10.3 basic metabolic profile is normal electrolytes are normal renal profile showed a BUN of 20 creatinine of 4.06. Patient was noted to be hemodynamically stable, her O2 saturation is 100% on 4 L nasal cannula and 96% on 2 L nasal cannula nonetheless the patient is being admitted, and I was asked to see this patient on consultation back on 06/07/2023, patient had a cardiac arrest post ERCP, patient had pulseless electrical activity, and she had CPR for about 2 to 3 minutes. Back then she was intubated mechanically venti lated, and I extubated the patient a day later patient was eventually discharged on 06/15/23. On 06/18 0 patient was seen in the ER for acute COVID-19 infection, did not require admission to the hospital her main symptom at this time was mostly weakness and cough. On this admission I saw the patient in the ER, and I did not feel very convinced that the patient even needs to be admitted to the hospital. I believe the patient could be managed on outpatient basis and follow-up with her primary care physician Progress note dated July 29, 2023. This is a 68-year-old female who is seen in the emergency department, room 26. She was seen yesterday by my partner in consultation. The patient is currently on 2 L of oxygen. The patient is receiving saline at 20 cc an hour. She continues on Zosyn. Blood cultures are apparently positive, but the organism has not yet been identified. We did ask for a procalcitonin level. Current laboratory data includes a white count of 13, hemoglobin 9.1, hematocrit 28, and platelet count of 195,000. Sodium 133, potassium 3.6, chloride 97, CO2 27, BUN 38, creatinine 5.59. Glucose is 88. Calcium 8.1. C-reactive protein is 24.5, and the procalcitonin level was quite elevated at 58.2. Blood cultures are now revealing gram-negative bacilli. Chest x-ray shows cardiomegaly, with pulmonary vascular congestion. Progress note dated July 30, 2023. 68-year-old female seen in the emergency department, initially. Currently, the patient seems to be doing better. She feels better. The patient is on 2 L of oxygen. She did test positive for Pseudomonas in the bloodstream. She continues on Zosyn. The Pseudomonas is sensitive to Zosyn. She is getting saline at 20 cc an hour. No new laboratory today other than a glucose of 154. Her procalcitonin level was quite elevated at 58.2. Progress note dated July 31, 2023. 68-year-old female seen today in room 365. Currently, she is on room air. Saturations are 95%. She is not receiving any IV fluids. Her blood cultures were positive for Pseudomonas aeruginosa. She continues on Zosyn. Clinically, she is feeling much better. No new labs today other than a glucose of 213. Progress note dated August 01, 2023. 68-year-old female who was admitted with sepsis and pneumonia, is seen today in room 365. Currently, the patient is on room air. She is receiving hemodialysis. The plan for this patient is to remove 2 L of fluid. She is not receiving any IV fluids. No new labs today other than a glucose of 144. Blood cultures are positive for Pseudomonas aeruginosa. No recent chest x-ray to report. Objective - Vital Signs Vital signs: Vital Signs Temp 97.6 F 08/01/23 08:00 Pulse 78 08/01/23 08:00 Resp 17 08/01/23 08:00 BP 180/81 08/01/23 08:00 Pulse Ox 95 08/01/23 08:00 FiO2 Intake & Output 07/31/23 08/01/23 08/01/23 18:59 06:59 18:59 Intake Total 598 0 120 Output Total 0 Balance 598 0 120 Weight 135.4 kg Intake: Oral 598 0 120 Output: Urine 0 Other: # Voids 1 2 - Exam No acute distress, oriented 3. Seen in room 365. Currently on room air. No respiratory distress. HEENT examination is grossly unremarkable. Mucous membranes are moist. No oral lesions. Neck supple. Full range of motion. No adenopathy thyromegaly or neck vein distention. Cardiovascular examination reveals regular rhythm rate. S1-S2 normal. No S3 or S4. No discernible murmur noted. Heart rate 78 bpm. Lungs reveal clear breath sounds. Breath sounds are equal bilaterally. No adventitious lung sounds including wheezes rhonchi or crackles. Saturations are 95 % on room air. Abdomen is, obese, soft, with bowel sounds. Extremities are intact. No cyanosis clubbing or edema. Skin is without rash or lesion. Neurologic examination is brief but nonfocal. - Labs CBC & Chem 7: 07/29/23 03:23 07/30/23 17:56 Labs: Abnormal Lab Results - Last 24 Hours (Table) 07/31/23 07/31/23 08/01/23 Range/Units 16:50 20:34 06:01 POC Glucose (mg/dL) 221 H 228 H 144 H (70-110) mg/dL Microbiology - Last 24 Hours (Table) 07/29/23 03:23 Blood Culture - Preliminary Blood Assessment and Plan Assessment: Pseudomonas bacteremia, currently on Zosyn. Acute tracheobronchitis. Mild interstitial edema, secondary to chronic end-stage renal disease. History of cardiac arrest/PEA, requiring intubation, and mechanical ventilation. Chronic fluid overload. Morbid obesity. Benign essential hypertension. Type 2 diabetes mellitus. History of hypothyroidism. History of choledocholithiasis. History of end-stage renal disease, on hemodialysis. Anemia of chronic disease. Plan: Plan dated July 29, 2023. The patient is seen today in the emergency department, room 26. She continues on Zosyn. The patient's procalcitonin was quite high. Blood cultures were positive for gram-negative bacilli. Labs, x-rays, and all medications are reviewed. The patient is waiting for an inpatient hospital bed. She continues on oxygen at 2 L. She is getting saline at 20 cc an hour. She states that she is feeling better today than she was yesterday. No additional recommendations are made at this time. Plan dated July 30, 2023. The patient's blood cultures did come back positive for Pseudomonas aeruginosa. The Pseudomonas is sensitive to Zosyn. The patient's procalcitonin level was quite high. She is feeling better today. She is on 2 L of oxygen. Saturations are 98 to 99%. The patient is receiving saline at 20 cc an hour. We will continue to follow the patient, make recommendations along the way. Prognosis is guarded. Labs, x-rays, and all medications have been reviewed. Plan dated July 31, 2023. The patient is currently on Zosyn, blood cultures were positive for Pseudomonas aeruginosa. The Pseudomonas is sensitive to Zosyn. The patient's labs, x-rays, and medications are reviewed. The patient is currently now on room air. Saturations are 95%. She is not receiving any IV fluids. Clinically, she is improved. She is hoping to go home in the next 24 to 48 hours. We will continue to follow the patient, make recommendations where appropriate. Prognosis is guarded. Plan dated August 01, 2023. The patient's blood cultures were positive for Pseudomonas aeruginosa. The patient's Pseudomonas is sensitive to Zosyn, which is what the patient is on. The patient is currently receiving hemodialysis. The plan is to remove 2 L. She is on room air. She is not manifesting any signs or symptoms of respiratory distress or difficulty. Labs, x-rays, and all medications are reviewed. We wi ll continue to follow the patient, make recommendations along the way. Prognosis is certainly guarded in this patient. Time with Patient: Less than 30
[2023-08-01 11:41] LABS: Glucose,Whole Blood 155 mg/dL (70-110)
[2023-08-01 12:10] VITALS: BMI 52.9
--- NOTE | 2023-08-01 14:47 | P.PN ---
Subjective Progress Note Date: 07/31/23 Principal diagnosis: Reason for follow-up is Pseudomonas bacteremia Patient is a 68-year-old female with a past medical history significant for diabetes mellitus hypertension hyperlipidemia NC osteomyelitis CVA TIA former smoker end-stage renal disease on dialysis patient was brought into the hospital for evaluation of increasing shortness of breath, patient did have a fever and hypoxic chest x-ray as well as a pulmonary vascular congestion subsequently noticed to have a positive blood culture with Pseudomonas aeruginosa. On today's evaluation that is 07/31/2023,the patient remains to be afebrile, patient is on room air not requiring supplemental oxygen and denies any shortness of breath no chest pain or cough.Patient denies having any nausea or vomiting, no abdominal pain and no diarrhea has been reported. No lab draw today Objective - Vital Signs Vital signs: Vital Signs Temp 97.8 F 07/31/23 11:51 Pulse 64 07/31/23 11:51 Resp 15 07/31/23 11:51 BP 150/70 07/31/23 11:51 Pulse Ox 95 07/31/23 11:51 FiO2 Intake & Output 07/30/23 07/31/23 07/31/23 18:59 06:59 18:59 Intake Total 579 500 480 Output Total 0 2500 Balance 579 -2000 480 Weight 136.4 kg Intake: Oral 579 480 Hemodialysis 500 Output: Urine 0 0 Hemodialysis 2500 Other: # Bowel Movements 1 - Exam GENERAL DESCRIPTION: An elderly female lying in bed in no distress RESPIRATORY SYSTEM: Unlabored breathing , decreased breath sounds at bases HEART: S1 S2 regular rate and rhythm , ABDOMEN: Soft , no tenderness EXTREMITIES: Right arm AV fistula site with no cellulitis - Labs CBC & Chem 7: 07/29/23 03:23 07/30/23 17:56 Labs: Abnormal Lab Results - Last 24 Hours (Table) 07/30/23 07/30/23 07/31/23 Range/Units 17:56 20:36 06:17 Sodium 132 L (137-145) mmol/L Potassium 3.4 L (3.5-5.1) mmol/L Carbon Dioxide 31 H (22-30) mmol/L BUN 23 H (7-17) mg/dL Creatinine 3.47 H (0.52-1.04) mg/dL Glucose 136 H (74-99) mg/dL POC Glucose (mg/dL) 151 H 176 H (70-110) mg/dL Calcium 7.8 L (8.4-10.2) mg/dL 07/31/23 07/31/23 Range/Units 11:25 16:50 Sodium (137-145) mmol/L Potassium (3.5-5.1) mmol/L Carbon Dioxide (22-30) mmol/L BUN (7-17) mg/dL Creatinine (0.52-1.04) mg/dL Glucose (74-99) mg/dL POC Glucose (mg/dL) 213 H 221 H (70-110) mg/dL Calcium (8.4-10.2) mg/dL Microbiology - Last 24 Hours (Table) 07/29/23 03:23 Blood Culture - Preliminary Blood Assessment and Plan (1) Bacteremia due to Pseudomonas Current Visit: Yes Status: Acute Code(s): R78.81 - BACTEREMIA; B96.5 - PSEUDOMONAS (MALLEI) CAUSING DISEASES [facility] SNOMED Code(s): 2577016647 (2) Pneumonia Current Visit: Yes Status: Acute Code(s): J18.9 - PNEUMONIA, UNSPECIFIED ORGANISM SNOMED Code(s): 317351787 Plan: 1patient presented hospital with increasing shortness of breath and this patient did have a cough patient did have a low-grade fever and significant hypoxemia with evidence of infiltrate on chest x-ray high likely suspicious for pneumonia possible gram-negative. 2patient with Pseudomonas aeruginosa bacteremia source likely pneumonia as currently no other obvious focus of infection and patient abdominal soft on clinical examination and no evidence of any cellulitis at the dialysis fistula site. 3blood cultures has been repeated and so far negative 4patient did have elevated CRP and procalcitonin 5-patient did have clinical improvement and will continue with Zosyn 3.375gm q12 hours Dictation was produced using [employer] dictation software. please excuse any grammatical, word or spelling errors. Time with Patient: Less than 30
--- NOTE | 2023-08-01 14:48 | P.PN ---
Subjective Progress Note Date: 08/01/23 Principal diagnosis: Reason for follow-up is Pseudomonas bacteremia Patient is a 68-year-old female with a past medical history significant for diabetes mellitus hypertension hyperlipidemia CA osteomyelitis CVA TIA former smoker end-stage renal disease on dialysis patient was brought into the hospital for evaluation of increasing shortness of breath, patient did have a fever and hypoxic chest x-ray as well as a pulmonary vascular congestion subsequently noticed to have a positive blood culture with Pseudomonas aeruginosa. On today's evaluation that is 08/01/2023, the patient continues to be afebrile, the patient is on room air and breathing comfortably, the Pt denies having any chest pain or cough, the patient denies having any abdominal pain no vomiting or any diarrhea has been reported, patient is feeling better and undergoing dialysis. No lab draw today blood culture repeat has been negative Objective - Vital Signs Vital signs: Vital Signs Temp 97.7 F 08/01/23 13:57 Pulse 65 08/01/23 13:57 Resp 18 08/01/23 13:57 BP 155/64 08/01/23 13:57 Pulse Ox 97 08/01/23 12:00 FiO2 Intake & Output 07/31/23 08/01/23 08/01/23 18:59 06:59 18:59 Intake Total 598 0 740 Output Total 0 2500 Balance 598 0 -1760 Weight 135.4 kg 135.4 kg Intake: Oral 598 0 240 Hemodialysis 500 Output: Urine 0 Hemodialysis 2500 Other: # Voids 1 2 - Exam GENERAL DESCRIPTION: An elderly female lying in bed in no distress RESPIRATORY SYSTEM: Unlabored breathing , decreased breath sounds at bases HEART: S1 S2 regular rate and rhythm , ABDOMEN: Soft , no tenderness EXTREMITIES: Right arm AV fistula site with no cellulitis - Labs CBC & Chem 7: 07/29/23 03:23 07/30/23 17:56 Labs: Abnormal Lab Results - Last 24 Hours (Table) 07/31/23 07/31/23 08/01/23 Range/Units 16:50 20:34 06:01 POC Glucose (mg/dL) 221 H 228 H 144 H (70-110) mg/dL 08/01/23 Range/Units 11:39 POC Glucose (mg/dL) 155 H (70-110) mg/dL Microbiology - Last 24 Hours (Table) 05/13/24 03:23 Blood Culture - Preliminary Blood Assessment and Plan (1) Bacteremia due to Pseudomonas Current Visit: Yes Status: Acute Code(s): R78.81 - BACTEREMIA; B96.5 - PSEUDOMONAS (MALLEI) CAUSING DISEASES CLASSD [id number] SNOMED Code(s): 2940651652 (2) Pneumonia Current Visit: Yes Status: Acute Code(s): J18.9 - PNEUMONIA, UNSPECIFIED ORGANISM SNOMED Code(s): 401366054 Plan: 1patient presented hospital with increasing shortness of breath and this patient did have a cough patient did have a low-grade fever and significant hypoxemia with evidence of infiltrate on chest x-ray high likely suspicious for pneumonia possible gram-negative. 2patient with Pseudomonas aeruginosa bacteremia source likely pneumonia as currently no other obvious focus of infection and patient abdominal soft on clinical examination and no evidence of any cellulitis at the dialysis fistula site. 3blood cultures has been repeated and so far negative 4patient did have elevated CRP and procalcitonin 5-patient did clear her bacteremia with the Zosyn we will get a midline plan for a 10-day course of IV Zosyn on discharge Dictation was produced using [email or web address] dictation software. please excuse any grammatical, word or spelling errors. Time with Patient: Less than 30
[2023-08-01 15:44] LABS: Basophils # (A) 0.1 k/uL (0-0.2); Basophils % (A) 1 %; Eosinophils # (A) 0.2 k/uL (0-0.7); Eosinophils % (A) 4 %; HCT 29.9 % (34.0-46.0); HGB 9.3 gm/dL (11.4-16.0); Hypochromasia Slight; Lymphocytes # (A) 1.3 k/uL (1.0-4.8); Lymphocytes % (A) 31 %; MCH 33.3 pg (25.0-35.0); MCHC 31.1 g/dL (31.0-37.0); MCV 107.1 fL (80.0-100.0); Macrocytosis Moderate; Mean Platelet Volume 9.1; Monocytes # (A) 0.2 k/uL (0-1.0); Monocytes % (A) 4 %; Neutrophils # (A) 2.5 k/uL (1.3-7.7); Neutrophils % (A) 58 %; Platelet Count 194 k/uL (150-450); RBC 2.79 m/uL (3.80-5.40); WBC 4.3 k/uL (3.8-10.6)
[2023-08-01 16:03] LABS: African American GFR (CKD) 15 (>60 ml/min/1.73 sqM); Anion Gap 8 mmol/L; Blood Urea Nitrogen 19 mg/dL (7-17); Calcium 7.7 mg/dL (8.4-10.2); Carbon Dioxide 25 mmol/L (22-30); Chloride 99 mmol/L (98-107); Glucose 221 mg/dL (74-99); Non-African American GFR(CKD) 13 (>60 ml/min/1.73 sqM); Sodium 132 mmol/L (137-145)
[2023-08-01 16:20] LABS: Glucose,Whole Blood 234 mg/dL (70-110)
[2023-08-01 19:52] LABS: Glucose,Whole Blood 200 mg/dL (70-110)
[2023-08-01] MEDS: ONDANSETRON 4 MG/2 ML VIAL IVP PRN (21:28)
[2023-08-01 23:32] VITALS: RESP 18
[2023-08-02 06:34] LABS: Glucose,Whole Blood 152 mg/dL (70-110)
[2023-08-02 06:41] LABS: Glucose,Whole Blood 143 mg/dL (70-110)
--- NOTE | 2023-08-02 10:53 | P.PN ---
Subjective Patient is seen for follow-up for end-stage renal disease. No significant complaints today. tolerated hemodialysis well yesterday. Objective - Vital Signs Vital signs: Vital Signs Temp 97.9 F 08/02/23 04:00 Pulse 72 08/02/23 04:00 Resp 18 08/02/23 04:00 BP 138/64 08/02/23 04:00 Pulse Ox 96 08/02/23 04:00 FiO2 Intake & Output 08/01/23 08/02/23 08/02/23 18:59 06:59 18:59 Intake Total 980 Output Total 2500 Balance -1520 Weight 135.4 kg 135.5 kg Intake: Oral 480 Hemodialysis 500 Output: Hemodialysis 2500 Other: # Voids 1 1 # Bowel Movements 1 - Exam patient is awake, comfortable, no acute distress Alert oriented 3 abdomen is soft Examination of lower extremities shows no significant edema [employer]CHIT[employer] exam grossly intact - Labs CBC & Chem 7: 08/01/23 14:49 08/01/23 14:49 Labs: Abnormal Lab Results - Last 24 Hours (Table) 08/01/23 08/01/23 08/01/23 Range/Units 11:39 14:49 14:49 RBC 2.79 L (3.80-5.40) m/uL Hgb 9.3 L (11.4-16.0) gm/dL Hct 29.9 L (34.0-46.0) % MCV 107.1 H (80.0-100.0) fL Sodium 132 L (137-145) mmol/L BUN 19 H (7-17) mg/dL Creatinine 3.35 H (0.52-1.04) mg/dL Glucose 221 H (74-99) mg/dL POC Glucose (mg/dL) 155 H (70-110) mg/dL Calcium 7.7 L (8.4-10.2) mg/dL 08/01/23 08/01/23 08/02/23 Range/Units 16:18 19:50 06:33 RBC (3.80-5.40) m/uL Hgb (11.4-16.0) gm/dL Hct (34.0-46.0) % MCV (80.0-100.0) fL Sodium (137-145) mmol/L BUN (7-17) mg/dL Creatinine (0.52-1.04) mg/dL Glucose (74-99) mg/dL POC Glucose (mg/dL) 234 H 200 H 152 H (70-110) mg/dL Calcium (8.4-10.2) mg/dL 08/02/23 Range/Units 06:40 RBC (3.80-5.40) m/uL Hgb (11.4-16.0) gm/dL Hct (34.0-46.0) % MCV (80.0-100.0) fL Sodium (137-145) mmol/L BUN (7-17) mg/dL Creatinine (0.52-1.04) mg/dL Glucose (74-99) mg/dL POC Glucose (mg/dL) 143 H (70-110) mg/dL Calcium (8.4-10.2) mg/dL Microbiology - Last 24 Hours (Table) 07/29/23 03:23 Blood Culture - Preliminary Blood Assessment and Plan Assessment: 1. End-stage renal disease on hemodialysis on a Saturday schedule via right upper arm AV graft 2. Pseudomonas bacteremia, being followed by ID. Maintained on IV Zosyn. Source is possibly pneumonia. Patient does not have significant urine output. Her AV graft does not have any erythema or tenderness. 3. CK D mineral bone disorder 4. Status post recent laparoscopic cholecystectomy on 06/03/2023 with extraction of further gallstones via ERCP postoperatively. Plan: hemodialysis on a Saturday schedule. Encouraged to increase oral intake. Continue with antibiotics follow-up on repeat blood cultures.
--- NOTE | 2023-08-02 11:30 | P.PN ---
Subjective Progress Note Date: 08/02/23 Principal diagnosis: Sepsis, pneumonia. This is a 68-year-old female with history of end-stage renal disease, on hemodialysis, patient is familiar to my service, I have seen this patient before for respiratory failure requiring intubation mechanical ventilation, patient came in with 2 days history of not feeling well, some shortness of breath and chills. Minimal dry cough. Patient had no chest pain, no fever, no nausea no vomiting no abdominal pain, patient has been on dialysis and her last dialysis treatment was yesterday. On admission her chest x-ray showed minimal in terstitial changes suggestive of mild interstitial edema, doubt underlying pneumonia as the symptoms are not pointing to pneumonia. Her WBC count was normal 5.9 hemoglobin 10.3 basic metabolic profile is normal electrolytes are normal renal profile showed a BUN of 20 creatinine of 4.06. Patient was noted to be hemodynamically stable, her O2 saturation is 100% on 4 L nasal cannula and 96% on 2 L nasal cannula nonetheless the patient is being admitted, and I was asked to see this patient on consultation back on 06/07/2023, patient had a cardiac arrest post ERCP, patient had pulseless electrical activity, and she had CPR for about 2 to 3 minutes. Back then she was intubated mechanically venti lated, and I extubated the patient a day later patient was eventually discharged on 06/15/23. On 06/18 0 patient was seen in the ER for acute COVID-19 infection, did not require admission to the hospital her main symptom at this time was mostly weakness and cough. On this admission I saw the patient in the ER, and I did not feel very convinced that the patient even needs to be admitted to the hospital. I believe the patient could be managed on outpatient basis and follow-up with her primary care physician Progress note dated July 29, 2023. This is a 68-year-old female who is seen in the emergency department, room 26. She was seen yesterday by my partner in consultation. The patient is currently on 2 L of oxygen. The patient is receiving saline at 20 cc an hour. She continues on Zosyn. Blood cultures are apparently positive, but the organism has not yet been identified. We did ask for a procalcitonin level. Current laboratory data includes a white count of 13, hemoglobin 9.1, hematocrit 28, and platelet count of 195,000. Sodium 133, potassium 3.6, chloride 97, CO2 27, BUN 38, creatinine 5.59. Glucose is 88. Calcium 8.1. C-reactive protein is 24.5, and the procalcitonin level was quite elevated at 58.2. Blood cultures are now revealing gram-negative bacilli. Chest x-ray shows cardiomegaly, with pulmonary vascular congestion. Progress note dated July 30, 2023. 68-year-old female seen in the emergency department, initially. Currently, the patient seems to be doing better. She feels better. The patient is on 2 L of oxygen. She did test positive for Pseudomonas in the bloodstream. She continues on Zosyn. The Pseudomonas is sensitive to Zosyn. She is getting saline at 20 cc an hour. No new laboratory today other than a glucose of 154. Her procalcitonin level was quite elevated at 58.2. Progress note dated July 31, 2023. 68-year-old female seen today in room 365. Currently, she is on room air. Saturations are 95%. She is not receiving any IV fluids. Her blood cultures were positive for Pseudomonas aeruginosa. She continues on Zosyn. Clinically, she is feeling much better. No new labs today other than a glucose of 213. Progress note dated August 01, 2023. 68-year-old female who was admitted with sepsis and pneumonia, is seen today in room 365. Currently, the patient is on room air. She is receiving hemodialysis. The plan for this patient is to remove 2 L of fluid. She is not receiving any IV fluids. No new labs today other than a glucose of 144. Blood cultures are positive for Pseudomonas aeruginosa. No recent chest x-ray to report. Progress note dated August 02, 2023. 68-year-old female who was admitted with a diagnosis of sepsis and pneumonia. The patient is seen in room 365. Currently, the patient is on room air. The patient is not receiving any IV fluids. The patient is currently on Zosyn. A midline catheter was placed on July 31. She will be discharged on antibiotic, for the next 10 days. Clinically, the patient is stable. Her blood cultures were positive for Pseudomonas aeruginosa. Current labs include a glucose of 143. Objective - Vital Signs Vital signs: Vital Signs Temp 97.9 F 08/02/23 04:00 Pulse 72 08/02/23 04:00 Resp 18 08/02/23 04:00 BP 138/64 08/02/23 04:00 Pulse Ox 96 08/02/23 04:00 FiO2 Intake & Output 08/01/23 08/02/23 08/02/23 18:59 06:59 18:59 Intake Total 980 Output Total 2500 Balance -1520 Weight 135.4 kg 135.5 kg Intake: Oral 480 Hemodialysis 500 Output: Hemodialysis 2500 Other: # Voids 1 1 # Bowel Movements 1 - Exam No acute distress, oriented 3. Seen in room 365. Currently on room air. No respiratory distress. HEENT examination is grossly unremarkable. Mucous membranes are moist. No oral lesions. Neck supple. Full range of motion. No adenopathy thyromegaly or neck vein distention. Cardiovascular examination reveals regular rhythm rate. S1-S2 normal. No S3 or S4. No discernible murmur noted. Heart rate 72 bpm. Lungs reveal clear breath sounds. Breath sounds are equal bilaterally. No adventitious lung sounds including wheezes rhonchi or crackles. Saturations are 96 % on room air. Abdomen is, obese, soft, with bowel sounds. Extremities are intact. No cyanosis clubbing or edema. Skin is without rash or lesion. Neurologic examination is brief but nonfocal. - Labs CBC & Chem 7: 08/01/23 14:49 08/01/23 14:49 Labs: Abnormal Lab Results - Last 24 Hours (Table) 08/01/23 08/01/23 08/01/23 Range/Units 11:39 14:49 14:49 RBC 2.79 L (3.80-5.40) m/uL Hgb 9.3 L (11.4-16.0) gm/dL Hct 29.9 L (34.0-46.0) % MCV 107.1 H (80.0-100.0) fL Sodium 132 L (137-145) mmol/L BUN 19 H (7-17) mg/dL Creatinine 3.35 H (0.52-1.04) mg/dL Glucose 221 H (74-99) mg/dL POC Glucose (mg/dL) 155 H (70-110) mg/dL Calcium 7.7 L (8.4-10.2) mg/dL 08/01/23 08/01/23 08/02/23 Range/Units 16:18 19:50 06:33 RBC (3.80-5.40) m/uL Hgb (11.4-16.0) gm/dL Hct (34.0-46.0) % MCV (80.0-100.0) fL Sodium (137-145) mmol/L BUN (7-17) mg/dL Creatinine (0.52-1.04) mg/dL Glucose (74-99) mg/dL POC Glucose (mg/dL) 234 H 200 H 152 H (70-110) mg/dL Calcium (8.4-10.2) mg/dL 08/02/23 Range/Units 06:40 RBC (3.80-5.40) m/uL Hgb (11.4-16.0) gm/dL Hct (34.0-46.0) % MCV (80.0-100.0) fL Sodium (137-145) mmol/L BUN (7-17) mg/dL Creatinine (0.52-1.04) mg/dL Glucose (74-99) mg/dL POC Glucose (mg/dL) 143 H (70-110) mg/dL Calcium (8.4-10.2) mg/dL Microbiology - Last 24 Hours (Table) 07/29/23 03:23 Blood Culture - Preliminary Blood Assessment and Plan Assessment: Pseudomonas bacteremia, currently on Zosyn. Acute tracheobronchitis. Mild interstitial edema, secondary to chronic end-stage renal disease. History of cardiac arrest/PEA, requiring intubation, and mechanical ventilation. Chronic fluid overload. Morbid obesity. Benign essential hypertension. Type 2 diabetes mellitus. History of hypothyroidism. History of choledocholithiasis. History of end-stage renal disease, on hemodialysis. Anemia of chronic disease. Plan: Plan dated July 29, 2023. The patient is seen today in the emergency department, room 26. She continues on Zosyn. The patient's procalcitonin was quite high. Blood cultures were positive for gram-negative bacilli. Labs, x-rays, and all medications are reviewed. The patient is waiting for an inpatient hospital bed. She continues on oxygen at 2 L. She is getting saline at 20 cc an hour. She states that she is feeling better today than she was yesterday. No additional recommendations are made at this time. Plan dated July 30, 2023. The patient's blood cultures did come back positive for Pseudomonas aeruginosa. The Pseudomonas is sensitive to Zosyn. The patient's procalcitonin level was quite high. She is feeling better today. She is on 2 L of oxygen. Saturations are 98 to 99%. The patient is receiving saline at 20 cc an hour. We will continue to follow the patient, make recommendations along the way. Prognosis is guarded. Labs, x-rays, and all medications have been reviewed. Plan dated July 31, 2023. The patient is currently on Zosyn, blood cultures were positive for Pseudomonas aeruginosa. The Pseudomonas is sensitive to Zosyn. The patient's labs, x-rays, and medications are reviewed. The patient is currently now on room air. Saturations are 95%. She is not receiving any IV fluids. Clinically, she is improved. She is hoping to go home in the next 24 to 48 hours. We will continue to follow the patient, make recommendations where appropriate. Prognosis is guarded. Plan dated August 01, 2023. The patient's blood cultures were positive for Pseudomonas aeruginosa. The patient's Pseudomonas is sensitive to Zosyn, which is what the patient is on. The patient is currently receiving hemodialysis. The plan is to remove 2 L. She is on room air. She is not manifesting any signs or symptoms of respiratory distress or difficulty. Labs, x-rays, and all medications are reviewed. We will continue to follow the patient, make recommendations along the way. Prognosis is certainly guarded in this patient. Plan dated August 02, 2023. The patient is currently on room air. Her respiratory status is stable. The patient continues on Zosyn for blood cultures that were positive for Pseudomonas aeruginosa. A midline catheter was placed yesterday. She will be discharged on 10 additional days of antibiotic. Labs, x-rays, and medications are reviewed. The patient's overall prognosis remains guarded. We will continue to follow the patient, and make recommendations along the way. Her respiratory status, is very stable at this time. Time with Patient: Less than 30
[2023-08-02 11:36] LABS: Glucose,Whole Blood 259 mg/dL (70-110)
--- NOTE | 2023-08-02 13:04 | P.DS ---
Providers Date of admission: 07/30/23 09:56 Attending physician: Rah Elder Consults: 07/27/23 22:00 Consult Physician Urgent Consulting Provider: Augusta Philip Consult Reason/Comments: pneumonia Do you want consulting provider notified?: Yes Consult Physician Urgent Consulting Provider: Nilda Velazco Consult Reason/Comments: pneumonia Do you want consulting provider notified?: Yes 07/29/23 17:17 Consult Physician Routine Consulting Provider: Mariah Melendez Consult Reason/Comments: dialysis patient Tu,Dimple, Sat Do you want consulting provider notified?: Yes Primary care physician: [facility] Course: HISTORY OF PRESENT ILLNESS: This is a 68-year-old female with history of end-stage renal disease, on hemodialysis, patient is familiar to my service, I have seen this patient before for respiratory failure requiring intubation mechanical ventilation, patient came in with 2 days history of not feeling well, some shortness of breath and chills. Minimal dry cough. Patient had no chest pain, no fever, no nausea no vomiting no abdominal pain, patient has been on dialysis and her last dialysis treatment was yesterday. On admission her chest x-ray showed minimal interstitial changes suggestive of mild interstitial edema, doubt underlying pneumonia as the symptoms are not pointing to pneumonia. Her WBC count was normal 5.9 hemoglobin 10.3 basic metabolic profile is normal electrolytes are normal renal profile showed a BUN of 20 creatinine of 4.06. Patient was noted to be hemodynamically stable, her O2 saturation is 100% on 4 L nasal cannula and 96% on 2 L nasal cannula nonetheless the patient is being admitted, and I was asked to see this patient on consultation back on 06/07/2023, patient had a cardiac arrest post ERCP, patient had pulseless electrical activity, and she had CPR for about 2 to 3 minutes. Back then she was intubated mechanically ventilated, and I extubated the patient a day later patient was eventually discharged on 06/15/23. On 06/18 0 patient was seen in the ER for acute COVID-19 infection, did not require admission to the hospital her main symptom at this time was mostly weakness and cough. On this admission I saw the patient in the ER, and I did not feel very convinced that the patient even needs to be admitted to the hospital. I believe the patient could be managed on outpatient basis and follow-up with her primary care physician 07/29/2023:Patient was seen infectious disease yesterday with a culture being positive taking consideration she had Pseudomonas aeruginosa infection from last time and this is probably will be an extension of breath blood culture gram-positive so far not final yet but patient antibiotic was switched to Zosyn 3.375 g every 12 hours with the fluid from sensitivity. Consult nephrology for continued care of hemodialysis. Patient is hemodynamically More stable. 07/30/2023: She is remain overflowing Emergency Department on 2 L of O2 she has large sided pneumonia and in mild respiratory distress, her procalcitonin was high at 58.2 with culture positive for Pseudomonas aeruginosa patient antibiotic was changed to Zosyn currently. Patient is doing well otherwise send not in any respiratory distress her white blood cell is down slight bit. Continue to have mild interstitial edema will do dialysis today. Still seen pulmonary, infectious disease and nephrology dialysis will be done today. 07/31/2023: Still been treated for bacteremia with Pseudomonas in her culture most likely source of pneumonia no other source possible at this point her systolic is clear, patient does not make any urine despite the recent surgery from May which seem like little bit long shot to have bacteremia from her gallbladder surgery and ERCP with stone extraction at the time. Continue hemodialysis on time shortness of breath has improved. Her blood sugar is fluctuating slight. Making adjustment of her medication and continue current management for her pneumonia and tracheobronchitis, continue to follow infectious disease waiting for the second culture. Otherwise overall patient is feeling better white blood cell is not that high we will repeat another CBC tomorrow kidney function and dialysis remain same with lactic acid dropped down. Her procalcitonin was extremely high reason why aggressive antibiotic still will be a better choice. Eventually patient might be switched to oral levofloxacin if possible for the last part of her management. Patient expected to be discharged home she does not require any help like last time that continue at least to be reviewed more active with PT. 08/01/2023: She has done well last few days shortness of breath has improved significantly, infectious disease still treating her for Pseudomonas aeruginosa and believe she has been IV on Zosyn for 10 days to complete her final course to reduce any odds of having any complication related to her Pseudomonas aeruginosa septicemia. Also from pulmonary standpoint she is doing well with significant decrease shortness of breath compared to before less hypoxic. Start counting probably on making arrangement for midline and patient will have an arrangement for outpatient infusion or home IV antibiotics infusion and prepare for discharge tomorrow. REVIEW OF SYSTEMS: REVIEW OF SYSTEMS: CONSTITUTIONAL: No fever, no malaise, no fatigue. HEENT: No recent visual problems or hearing problems. Denied any sore throat. CARDIOVASCULAR: No chest pain, orthopnea, PND, no palpitations, no syncope. PULMONARY: No shortness of breath, no cough, no hemoptysis. GASTROINTESTINAL: No diarrhea, no nausea, no vomiting, no abdominal pain. NEUROLOGICAL: No headaches, no weakness, no numbness. HEMATOLOGICAL: Denies any bleeding or petechiae. GENITOURINARY: Denies any burning micturition, frequency, or urgency. MUSCULOSKELETAL/RHEUMATOLOGICAL: Denies any joint pain, swelling, or any muscle pain. ENDOCRINE: Denies any polyuria or polydipsia. PHYSICAL EXAMINATION: Neck HEENT: Supple, no lymphadenopathy, no thyroid enlargement, no carotid bruits. Lungs: Symmetrical chest expansion, good breath sound bilaterally minimal crackles at the bases Chest Wall: No chest wall deformity, no tenderness. Heart: S1-S2, no S3 gallop. Murmur. Abdomen: Soft nontender no megaly no rebound, suspect small ascites. Extremities: Trace of bipedal edema Pulses: Distal pulses bilaterally slightly diminished. Skin: Skin color, texture, tugor normal, no rashes or lesions. Neurologic: Awake alert and oriented x 3 no gross focal deficit Psychiatric: Alert oriented x 3, normal mood normal affect normal mental status examination. ASSESSMENT AND PLAN: _Severe gram-negative pneumonia with Pseudomonas aeruginosa which could aspiration as well take special consideration the recent hospitalization that patient was in for extended period of time with a gram-negative bacteremia at the time. With the culture of Pseudomonas she is treated with Zosyn at this point still seen infectious disease. Continue Zosyn for 10 more days as an outpatient. _ Bacteremia/sepsis; blood cultures positive for gram-negative bacilli; was switched to Zosyn continue current antibiotics.Source is most likely pneumonia, midline placement and home or outpatient infusion for 10 days will be done. _ Mild interstitial edema, with chronic fluid overload; acute CHF versus fluid overload given chronic kidney disease; continue to move more fluid with hemodialysis. _ Diabetes mellitus type 2 with long-term insulin use; Levemir 33 units SQ twice daily along with NovoLog 23 units AC 3 times daily; monitor Accu-Cheks with insulin sliding scale as needed _Recent long hospitalization with complication related to cholecystectomy and common duct stone complicated with acute respiratory failure and sepsis. _ End-stage renal disease/HD 3 times a week will consult nephrology. _Hyperlipidemia; Lipitor 20 mg p.o. nightly _Hypothyroidism; continue with home dose of levothyroxine. _Debility: Will try her best with physical therapy to avoid severe stiffness might require more help. CODE STATUS: Full code. Prognosis: Fair. Discussion: Patient will have Prepare for discharge home tomorrow shortness to go home does not want to go anywhere she is going to have antibiotic infusion at home. Hospital course: She was admitted to the hospital on 07/28/2023 with shortness of breath cough wheezes and chills with minimal dry cough patient presented to the emergency department was seen and evaluated found to have white blood cell of 5.9 hemoglobin 10.3 her oxygen saturation was quite bit low she required 4 L of O2 to keep her pulse ox above 90 percentile was started on updraft treatment chest x-ray revealed significant infiltrate in the bases bilaterally with interstitial infiltrate as well. Patient was seen and evaluated by pulmonary her blood culture came back positive for Pseudomonas aeruginosa her procalcitonin was quite bit high repeat chest x- ray shows large right-sided pneumonia was continue IV antibiotic with Zosyn will switch from originally Rocephin and azithromycin. Agree with pulmonary and infectious disease. Patient was seen nephrology and continue hemodialysis 3 times a week as expected. 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 Repeat culture ended up coming back negative second time. Patient will be treated for 10 extra days of Zosyn for Pseudomonas aeruginosa bacteremia. Midline was placed on the left arm patient will be discharged home to do IV antibiotic. Patient is stable for discharge on 08/02/2023. Time spent on discharging patient was over 35 minutes. Patient Condition at Discharge: Fair Plan - Discharge Summary New Discharge Prescriptions: New Piperacillin-Tazobactam [Zosyn] 3.375 gm IVPB Q12H #24 dose Continue Levothyroxine Sodium [Synthroid] 150 mcg PO MOTUWETHFR Insulin Lispro [humaLOG Kwikpen] 23 unit SQ AC-TID Insulin Glargine,Hum.rec.anlog [Lantus Solostar Pen] 33 units SQ BID Sevelamer [Renvela] 800 - 1,600 mg PO TID-W/MEALS Pantoprazole Sodium [Protonix] 20 mg PO DAILY carvediloL [Coreg] 25 mg PO BID Midodrine HCl [ProAmatine] 10 mg PO TID PRN PRN Reason: LOW BP UNDER 100 Levothyroxine Sodium [Synthroid] 225 mcg PO SUSA Simvastatin [Zocor] 40 mg PO HS traZODone HCL [Desyrel] 100 mg PO HS PRN PRN Reason: Insomnia Folic Acid/Vit B Complex and C [Nephro-Nav Tablet] 0.8 mg PO HS Benzonatate [Tessalon Perles] 100 mg PO TID PRN PRN Reason: Cough Discharge Medication List Levothyroxine Sodium [Synthroid] 150 mcg PO MOTUWETHFR 03/25/20 [History] Levothyroxine Sodium [Synthroid] 225 mcg PO SUSA 12/20/21 [History] Insulin Glargine,Hum.rec.anlog [Lantus Solostar Pen] 33 units SQ BID 07/21/22 [History] Insulin Lispro [humaLOG Kwikpen] 23 unit SQ AC-TID 07/21/22 [History] Sevelamer [Renvela] 800 - 1,600 mg PO TID-W/MEALS 10/17/22 [History] Simvastatin [Zocor] 40 mg PO HS 10/17/22 [History] Pantoprazole Sodium [Protonix] 20 mg PO DAILY 05/31/23 [History] traZODone HCL [Desyrel] 100 mg PO HS PRN 05/31/23 [History] Folic Acid/Vit B Complex and C [Nephro-Nav Tablet] 0.8 mg PO HS 07/16/23 [History] Midodrine HCl [ProAmatine] 10 mg PO TID PRN 07/16/23 [History] carvediloL [Coreg] 25 mg PO BID 07/16/23 [History] Benzonatate [Tessalon Perles] 100 mg PO TID PRN 07/27/23 [History] Piperacillin-Tazobactam [Zosyn] 3.375 gm IVPB Q12H #24 dose 08/02/23 [Rx] Follow up Appointment(s)/Referral(s): Candelaria Barrera MD [Primary Care Provider] - 1-2 days (please call office on Saturday to schedule an appointment) Nilda Velazco MD [STAFF PHYSICIAN] - 1 Week (please call office on Saturday to schedule an appointment) Discharge Disposition: HOME WITH HOME HEALTH SERVICES
[2023-08-02 14:22] VITALS: TEMP 98.1
--- NOTE | 2023-08-02 15:43 | P.PN ---
Subjective Progress Note Date: 08/02/23 Principal diagnosis: Reason for follow-up is Pseudomonas bacteremia Patient is a 68-year-old female with a past medical history significant for diabetes mellitus hypertension hyperlipidemia MO osteomyelitis CVA TIA former smoker end-stage renal disease on dialysis patient was brought into the hospital for evaluation of increasing shortness of breath, patient did have a fever and hypoxic chest x-ray as well as a pulmonary vascular congestion subsequently noticed to have a positive blood culture with Pseudomonas aeruginosa. On today's evaluation that is 08/02/2023, Patient is afebrile patient is currently on room air and denies having any shortness of breath, the patient denies any chest pain or cough, the patient denies any nausea vomiting did not have any abdominal pain and no diarrhea, feeling better no new symptoms. No new labs has been obtained today, blood culture repeat has been negative Objective - Vital Signs Vital signs: Vital Signs Temp 97.9 F 08/02/23 04:00 Pulse 72 08/02/23 04:00 Resp 18 08/02/23 04:00 BP 138/64 08/02/23 04:00 Pulse Ox 96 08/02/23 04:00 FiO2 Intake & Output 08/01/23 08/02/23 08/02/23 18:59 06:59 18:59 Intake Total 980 Output Total 2500 Balance -1520 Weight 135.4 kg 135.5 kg Intake: Oral 480 Hemodialysis 500 Output: Hemodialysis 2500 Other: # Voids 1 1 # Bowel Movements 1 - Exam GENERAL DESCRIPTION: An elderly female lying in bed in no distress RESPIRATORY SYSTEM: Unlabored breathing , decreased breath sounds at bases HEART: S1 S2 regular rate and rhythm , ABDOMEN: Soft , no tenderness EXTREMITIES: Right arm AV fistula site with no cellulitis - Labs CBC & Chem 7: 08/01/23 14:49 08/01/23 14:49 Labs: Abnormal Lab Results - Last 24 Hours (Table) 08/01/23 08/01/23 08/01/23 Range/Units 11:39 14:49 14:49 RBC 2.79 L (3.80-5.40) m/uL Hgb 9.3 L (11.4-16.0) gm/dL Hct 29.9 L (34.0-46.0) % MCV 107.1 H (80.0-100.0) fL Sodium 132 L (137-145) mmol/L BUN 19 H (7-17) mg/dL Creatinine 3.35 H (0.52-1.04) mg/dL Glucose 221 H (74-99) mg/dL POC Glucose (mg/dL) 155 H (70-110) mg/dL Calcium 7.7 L (8.4-10.2) mg/dL 08/01/23 08/01/23 08/02/23 Range/Units 16:18 19:50 06:33 RBC (3.80-5.40) m/uL Hgb (11.4-16.0) gm/dL Hct (34.0-46.0) % MCV (80.0-100.0) fL Sodium (137-145) mmol/L BUN (7-17) mg/dL Creatinine (0.52-1.04) mg/dL Glucose (74-99) mg/dL POC Glucose (mg/dL) 234 H 200 H 152 H (70-110) mg/dL Calcium (8.4-10.2) mg/dL 08/02/23 Range/Units 06:40 RBC (3.80-5.40) m/uL Hgb (11.4-16.0) gm/dL Hct (34.0-46.0) % MCV (80.0-100.0) fL Sodium (137-145) mmol/L BUN (7-17) mg/dL Creatinine (0.52-1.04) mg/dL Glucose (74-99) mg/dL POC Glucose (mg/dL) 143 H (70-110) mg/dL Calcium (8.4-10.2) mg/dL Microbiology - Last 24 Hours (Table) 07/29/23 03:23 Blood Culture - Preliminary Blood Assessment and Plan (1) Bacteremia due to Pseudomonas Current Visit: Yes Status: Acute Code(s): R78.81 - BACTEREMIA; B96.5 - PSEUDOMONAS (MALLEI) CAUSING DISEASES [facility] SNOMED Code(s): 3357309530 (2) Pneumonia Current Visit: Yes Status: Acute Code(s): J18.9 - PNEUMONIA, UNSPECIFIED OR GANISM SNOMED Code(s): 235838704 Plan: 1patient presented hospital with increasing shortness of breath and this patient did have a cough patient did have a low-grade fever and significant hypoxemia with evidence of infiltrate on chest x-ray high likely suspicious for pneumonia possible gram-negative. 2patient with Pseudomonas aeruginosa bacteremia source likely pneumonia as currently no other obvious focus of infection and patient abdominal soft on clinical examination and no evidence of any cellulitis at the dialysis fistula site. 3blood cultures has been repeated and so far negative 4patient clear her bacteremia with the Zosyn patient did have a midline placed, plan for a 10-day course of IV Zosyn on discharge, currently waiting for outpatient antibiotic arrangement before discharge Dictation was produced using [employer] dictation software. please excuse any grammatical, word or spelling errors. Time with Patient: Less than 30
[2023-08-02 16:09] VITALS: BP 142/64; PULSE 67
[2023-08-02 16:58] LABS: Glucose,Whole Blood 205 mg/dL (70-110)
--- NOTE | 2023-08-02 17:52 | CDI ---
Documentation Clarification Form Date: 08/02/2023 05:49:47 PM From: Susanna Fleming RN, CCDS Phone: [phone] Admit Date: 07/30/2023 09:56:00 AM Patient Name: Adalgisa Gonzalez Visit Number: [id number] Discharge Date: ATTENTION: The Clinical Documentation Specialists (CDI) and [facility] Coding Staff appreciate your assistance in clarifying documentation. Please respond to the clarification below the line at the bottom and electronically sign. The CDI & [facility] Coding staff will review the response and follow-up if needed. Please note: Queries are made part of the Legal Health Record. If you have any questions, please contact the author of this message via ITS. Dr. Rah Elder Your patient has the documented diagnosis of unspecified acute CHF in the H/P and ongoing progress notes. Additional information regarding the [type, acuity] of CHF is requested. History/Risk Factors: CVA/TIA, Diabetes Mellitus, Dialysis, Hyperlipidemia, Hypertension,[place]), Thyroid Disorder Clinical Indicators: 68-year-old female to the ER with a chief complaint of shortness of breath. VS/Pulse OX: 153/71 89 36 100.5 94% RA Echocardiogram Results: (06/07/23) Left ventricular ejection fraction is estimated at 50-55%. Mildly increased LV diastolic diameter. Moderate RV dilation. Chest X Ray: 07/26) Cardiomegaly with vascular congestion and interstitial prominence suggesting edema or pneumonitis similar to slightly greater compared to the prior study. 07/29 Nephrology consult: End-stage renal disease on hemodialysis on a Saturday schedule via right upper arm AV graft 07/28 Pulmonary consult: Acute tracheobronchitis/URI, doubt pneumonia Mild interstitial edema secondary to chronic end-stage renal disease patient had her last hemodialysis yesterday. Chronic fluid overload on hemodialysis Treatment: Hemolysis's Per Nephrology orders In your professional opinion, can you please clarify type of CHF if known? [ ] Acute CHF Ruled out, patient with Chronic fluid overload on hemodialysis. [xx ] Acute Diastolic Heart Failure (preserved EF) [ ] Other, please specify [ ] Unable to determine (Template Last Revised: April 2020) MTDD
== END 2023-08-02 17:55 | disposition home health service (06) | DRG 871 ==
LOC: EC 18:39 → 3SCARD 23:27 → OBSVTOIN 07-30 09:56
PROVIDERS: ADMIT Internal Medicine Geriatric Medicine; ATTEND Internal Medicine Geriatric Medicine
PROC: 5A1D70Z Performance of Urinary Filtration, Intermittent, Less than 6 Hours Per Day (ICD-10-PCS; principal; 2023-07-30)
PROC: 05HC33Z Insertion of Infusion Device into Left Basilic Vein, Percutaneous Approach (ICD-10-PCS; 2023-08-01 16:55)
DX: A41.52 Sepsis due to Pseudomonas (principal); I50.31 Acute diastolic (congestive) heart failure; J15.1 Pneumonia due to Pseudomonas; N18.6 End stage renal disease; Z68.43 Body mass index [BMI] 50.0-59.9, adult; J44.0 Chronic obstructive pulmonary disease with (acute) lower respiratory infection; I13.2 Hypertensive heart and chronic kidney disease with heart failure and with stage 5 chronic kidney disease, or end stage renal disease; D63.1 Anemia in chronic kidney disease; J20.8 Acute bronchitis due to other specified organisms; E66.01 Morbid (severe) obesity due to excess calories; Z99.2 Dependence on renal dialysis; Z11.52 Encounter for screening for COVID-19; E03.9 Hypothyroidism, unspecified; Z79.890 Hormone replacement therapy; E11.22 Type 2 diabetes mellitus with diabetic chronic kidney disease; E11.69 Type 2 diabetes mellitus with other specified complication; M19.90 Unspecified osteoarthritis, unspecified site; E78.5 Hyperlipidemia, unspecified; E87.70 Fluid overload, unspecified; H54.8 Legal blindness, as defined in USA; I25.2 Old myocardial infarction; M89.8X9 Other specified disorders of bone, unspecified site; R09.02 Hypoxemia; Z79.4 Long term (current) use of insulin; Z79.899 Other long term (current) drug therapy; Z86.73 Personal history of transient ischemic attack (TIA), and cerebral infarction without residual deficits; Z90.49 Acquired absence of other specified parts of digestive tract; Z90.710 Acquired absence of both cervix and uterus
CPT/HCPCS: 36410; 71046; 76937; 80048; 80053; 83605; 83735; 84145; 84484; 85025; 85610; 85730; 86140; 87040; 87077; 87186; 87636; 90935; 93005; 96361; 96365; 96366; 96375; 99285

== ENCOUNTER 2024-04-05 08:44 | Emergency (ER) | payer MEDICARE, BC ==
--- NOTE | 2024-04-05 09:13 | ED ---
General Adult HPI - General Chief complaint: Recheck/Abnormal Lab/Rx Stated complaint: clogged cath Time Seen by Provider: 04/05/24 09:00 Source: patient Mode of arrival: wheelchair Limitations: no limitations - History of Present Illness Initial comments: 69-year-old female presents emergency department reporting clogged dialysis catheter. Patient states that she attempted to go to dialysis yesterday and they could not use her catheter. She states that it is very positional in nature. He was last placed by Dr. Fry. Yesterday they could not get her catheter to work at all therefore she did not receive her dialysis. They have already put Cathflo in her catheter once. They told her that they could not do it a second time and she had to come to the hospital for evaluation of her catheter. Patient denies any pain. No fevers. No bleeding from the site. No other alleviating, precipitating or modifying factors - Related Data Home Medications Medication Instructions Recorded Confirmed Levothyroxine Sodium [Synthroid] 150 mcg PO MOTUWETHFR 03/25/20 07/27/23 Levothyroxine Sodium [Synthroid] 225 mcg PO SUSA 12/20/21 07/27/23 Insulin Glargine,Hum.rec.anlog 33 units SQ BID 07/21/22 07/27/23 [Lantus Solostar Pen] Insulin Lispro [humaLOG Kwikpen] 23 unit SQ AC-TID 07/21/22 07/27/23 Sevelamer [Renvela] 800 - 1,600 mg PO TID-W/MEALS 10/17/22 07/27/23 Simvastatin [Zocor] 40 mg PO HS 10/17/22 07/27/23 Pantoprazole Sodium [Protonix] 20 mg PO DAILY 05/31/23 07/27/23 traZODone HCL [Desyrel] 100 mg PO HS PRN 05/31/23 07/27/23 Folic Acid/Vit B Complex and C 0.8 mg PO HS 07/16/23 07/27/23 [Nephro-Nav Tablet] Midodrine HCl [ProAmatine] 10 mg PO TID PRN 07/16/23 07/27/23 carvediloL [Coreg] 25 mg PO BID 07/16/23 07/27/23 Benzonatate [Tessalon Perles] 100 mg PO TID PRN 07/27/23 07/27/23 Previous Rx's Medication Instructions Recorded Piperacillin-Tazobactam [Zosyn] 3.375 gm IVPB Q12H #24 dose 08/02/23 Allergies Allergy/AdvReac Type Severity Reaction Status Date / Time No Known Allergies Allergy Verified 04/05/24 08:50 Review of Systems ROS Statement: Those systems with pertinent positive or pertinent negative responses have been documented in the HPI. ROS Other: All systems not noted in ROS Statement are negative. 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 6 years. Last Myocardial Infarction Date:: Unknown History of Any Multi-Drug Resistant Organisms: None Reported Past Surgical History: Section, Hysterectomy, Orthopedic Surgery Additional Past Surgical History / Comment(s): Had open thrombectomy left axillary graft on 12-21-21,BONE TUMOR REMOVED FROM LT FINGER AND REPLACED WITH BONE FROM ELBOW. DIALYSIS FISTULA rt arm-old, lasik rt eye surgery, right upper ext. left AV graft revision 03-31-20 Past Anesthesia/Blood Transfusion Reactions: Postoperative Nausea & Vomiting (PONV) Past Psychological History: No Psychological Hx Reported Smoking Status: Never smoker Past Alcohol Use History: None Reported Past Drug Use History: None Reported - Past Family History Mother Family Medical History: Cancer Brother(s) Family Medical History: Cancer General Exam Limitations: no limitations General appearance: alert, in no apparent distress Head exam: Present: atraumatic, normocephalic, normal inspection Eye exam: Present: normal appearance, PERRL, EOMI. Absent: scleral icterus, conjunctival injection, periorbital swelling ENT exam: Present: normal exam, mucous membranes moist Neck exam: Present: normal inspection. Absent: tenderness, meningismus, lym phadenopathy Respiratory exam: Present: normal lung sounds bilaterally. Absent: respiratory distress, wheezes, rales, rhonchi, stridor Cardiovascular Exam: Present: regular rate, normal rhythm, normal heart sounds. Absent: systolic murmur, diastolic murmur, rubs, gallop, clicks GI/Abdominal exam: Present: soft, normal bowel sounds. Absent: distended, tenderness, guarding, rebound, rigid Extremities exam: Present: normal inspection, full ROM, normal capillary refill. Absent: tenderness, pedal edema, joint swelling, calf tenderness Back exam: Present: normal inspection Neurological exam: Present: alert, oriented X3, CN II-XII intact Psychiatric exam: Present: normal affect, normal mood Skin exam: Present: warm, dry, intact, normal color, other (Catheter in the left chest wall with no surrounding cellulitis. Catheter in appropriate position). Absent: rash Course Vital Signs 04/05/24 04/05/24 04/05/24 08:45 09:17 11:23 Temperature 98.0 F 97.5 F L Pulse Rate 67 64 63 Respiratory 20 18 18 Rate Blood Pressure 191/75 153/86 170/71 O2 Sat by Pulse 99 96 98 Oximetry Medical Decision Making - Medical Decision Making Was pt. sent in by a medical professional or institution (SUDHA Gomez, PER DIEM INTERPRETER, urgent care, hospital, or halfway...) When possible be specific @ -Patient sent in from her dialysis center Did you speak to anyone other than the patient for history (EMS, parent, family, police, friend...)? What history was obtained from this source @ -Spoke with for history Did you review nursing and triage notes (agree or disagree)? Why? @ -I reviewed and agree with nursing and triage notes Were old charts reviewed (outside hosp., previous admission, EMS record, old EKG, old radiological studies, urgent care reports/EKG's, halfway records)? Report findings @ -No old charts were reviewed Differential Diagnosis (chest pain, altered mental status, abdominal pain women, abdominal pain men, vaginal bleeding, weakness, fever, dyspnea, syncope, headache, dizziness, GI bleed, back pain, seizure, CVA, palpatations, mental health, musculoskeletal)? @ -Clogged dialysis catheter, dislodged dialysis catheter EKG interpreted by me (3pts min.). @ -Not done X-rays interpreted by me (1pt min.). @ -None done CT interpreted by me (1pt min.). @ -None done U/S interpreted by me (1pt. min.). @ -None done What testing was considered but not performed or refused? (CT, X-rays, U/S, labs)? Why? @ -None What meds were considered but not given or refused? Why? @ -None Did you discuss the management of the patient with other professionals (rosa sosa i.e. , PA, PER DIEM INTERPRETER, lab, RT, psych nurse, social insurance administrator, turntable engineer, teacher, community reinvestment act officer, pillowcase cleaner)? Give summary @ -No Was smoking cessation discussed for >3mins.? @ -No Was critical care preformed (if so, how long)? @ -No Were there social determinants of health that impacted care today? How? (Homelessness, low income, unemployed, alcoholism, drug addiction, transportation, low edu. Level, literacy, decrease access to med. care, half-way, rehab)? @ -No Was there de-escalation of care discussed even if they declined (Discuss DNR or withdrawal of care, Hospice)? DNR status @ -No What co-morbidities impacted this encounter? (DM, HTN, Smoking, COPD, CAD, Cancer, CVA, ARF, Chemo, Hep., AIDS, mental health diagnosis, sleep apnea, morbid obesity)? @ -End-stage renal disease on hemodialysis Was patient admitted / discharged? Hospital course, mention meds given and route, prescriptions, significant lab abnormalities, going to OR and other pertinent info. @ -Upon arrival patient seen and evaluated in bed 6. Thorough history and physical exam was performed. I did place Cathflo in each catheter and allowed it to sit for 30 minutes. Upon reevaluation I am able to aspirate and flush. Catheter is working at this time. Patient will be discharged home as her electrolytes are within normal range. She will follow-up on Saturday to see if they have an opening for dialysis otherwise resume her previous schedule and return for any new or worsening symptoms Undiagnosed new problem with uncertain prognosis? @ -No Drug Therapy requiring intensive monitoring for toxicity (Heparin, Nitro, Insulin, Cardizem)? @ -No Were any procedures done? @ -No Diagnosis/symptom? @ -Clogged dialysis catheter left chest wall, end-stage renal disease on hemodialysis Saturday, , Saturday Acute, or Chronic, or Acute on Chronic? @ -Acute on chronic Uncomplicated (without systemic symptoms) or Complicated (systemic symptoms)? @ -Complicated Side effects of treatment? @ -No Exacerbation, Progression, or Severe Exacerbation? @ -No Poses a threat to life or bodily function? How? (Chest pain, [place], [place], pneumonia, PE, COPD, DKA, ARF, appy, cholecystitis, CVA, Diverticulitis, Homicidal, Suicidal, threat to staff... and all critical care pts) @ -Yes as patient does need her catheter for dialysis - Lab Data Result diagrams: 04/05/24 09:37 04/05/24 09:37 Lab Results 04/05/24 04/05/24 Range/Units 09:37 09:37 WBC 6.2 (3.8-10.6) k/uL RBC 2.81 L (3.80-5.40) m/uL Hgb 9.5 L (11.4-16.0) gm/dL Hct 28.3 L (34.0-46.0) % MCV 100.7 H (80.0-100.0) fL MCH 33.9 (25.0-35.0) pg MCHC 33.7 (31.0-37.0) g/dL RDW 13.4 (11.5-15.5) % Plt Count 160 (150-450) k/uL MPV 8.5 Neutrophils % 66 % Lymphocytes % 26 % Monocytes % 4 % Eosinophils % 2 % Basophils % 0 % Neutrophils # 4.1 (1.3-7.7) k/uL Lymphocytes # 1.6 (1.0-4.8) k/uL Monocytes # 0.2 (0-1.0) k/uL Eosinophils # 0.2 (0-0.7) k/uL Basophils # 0.0 (0-0.2) k/uL Macrocytosis Slight Sodium 140 (137-145) mmol/L Potassium 5.4 H (3.5-5.1) mmol/L Chloride 103 (98-107) mmol/L Carbon Dioxide 25 (22-30) mmol/L Anion Gap 12 mmol/L BUN 72 H (7-17) mg/dL Creatinine 9.43 H* (0.52-1.04) mg/dL Est GFR (CKD-EPI)AfAm 4 (>60 ml/min/1.73 sqM) Est GFR (CKD-EPI)NonAf 4 (>60 ml/min/1.73 sqM) Glucose 203 H (74-99) mg/dL Calcium 8.9 (8.4-10.2) mg/dL Total Bilirubin 0.2 (0.2-1.3) mg/dL AST 21 (14-36) U/L ALT 20 (4-34) U/L Alkaline Phosphatase 116 (38-126) U/L Total Protein 6.8 (6.3-8.2) g/dL Albumin 3.5 (3.5-5.0) g/dL Disposition Clinical Impression: Occlusion of arteriovenous dialysis graft Disposition: HOME SELF-CARE Condition: Stable Instructions (If sedation given, give patient instructions): Perma-cath Placement (DC) Additional Instructions: Please call the dialysis center on Saturday to see if they can accommodate you on Saturday. Return for any new or worsening symptoms. Is patient prescribed a controlled substance at d/c from ED?: No Referrals: Candelaria Barrera MD [Primary Care Provider] - 1-2 days Time of Disposition: 10:49
[2024-04-05 09:24] VITALS: RESP 18
[2024-04-05] MEDS: ALTEPLASE 2 MG VIAL (CATHFLO) MISCELLANE ONE ×2 (09:36→09:37)
[2024-04-05 09:47] LABS: Basophils % (A) 0 %; Eosinophils # (A) 0.2 k/uL (0-0.7); Eosinophils % (A) 2 %; HCT 28.3 % (34.0-46.0); HGB 9.5 gm/dL (11.4-16.0); Lymphocytes # (A) 1.6 k/uL (1.0-4.8); Lymphocytes % (A) 26 %; MCH 33.9 pg (25.0-35.0); MCHC 33.7 g/dL (31.0-37.0); MCV 100.7 fL (80.0-100.0); Macrocytosis Slight; Mean Platelet Volume 8.5; Monocytes # (A) 0.2 k/uL (0-1.0); Monocytes % (A) 4 %; Neutrophils # (A) 4.1 k/uL (1.3-7.7); Neutrophils % (A) 66 %; Platelet Count 160 k/uL (150-450); RBC 2.81 m/uL (3.80-5.40); RDW 13.4 % (11.5-15.5); WBC 6.2 k/uL (3.8-10.6)
[2024-04-05 10:25] LABS: ALT 20 U/L (4-34); AST 21 U/L (14-36); African American GFR (CKD) 4 (>60 ml/min/1.73 sqM); Albumin 3.5 g/dL (3.5-5.0); Alkaline Phosphatase 116 U/L (38-126); Anion Gap 12 mmol/L; Blood Urea Nitrogen 72 mg/dL (7-17); Calcium 8.9 mg/dL (8.4-10.2); Carbon Dioxide 25 mmol/L (22-30); Chloride 103 mmol/L (98-107); Glucose 203 mg/dL (74-99); Non-African American GFR(CKD) 4 (>60 ml/min/1.73 sqM); Potassium 5.4 mmol/L (3.5-5.1); Sodium 140 mmol/L (137-145); Total Bilirubin 0.2 mg/dL (0.2-1.3); Total Protein 6.8 g/dL (6.3-8.2)
[2024-04-05] MEDS: carvediloL 12.5 MG TAB PO STA (11:24)
[2024-04-05 11:34] VITALS: BP 170/71; PULSE 63; TEMP 97.5
== END 2024-04-05 11:23 | disposition home or self-care (01) ==
LOC: EC 08:44
DX: T82.868A Thrombosis due to vascular prosthetic devices, implants and grafts, initial encounter (principal); Z86.73 Personal history of transient ischemic attack (TIA), and cerebral infarction without residual deficits; Z99.2 Dependence on renal dialysis
CPT/HCPCS: 99283 ×2; 36415; 80053; 85025; 36593; J2997

== ENCOUNTER 2024-09-11 09:37 | Emergency (ER) | payer MEDICARE, BC ==
[2024-09-11 09:45] VITALS: TEMP 97.8
--- NOTE | 2024-09-11 09:57 | ED ---
Recheck HPI - General Chief Complaint: Recheck/Abnormal Lab/Rx Stated Complaint: cath issue Time Seen by Provider: 09/11/24 09:49 Source: patient, RN notes reviewed Mode of arrival: wheelchair Limitations: no limitations - History of Present Illness Initial Comments: This is a 69-year-old female who presents to the emergency department for problems with her dialysis catheter. Patient is on hemodialysis Saturday, , and Saturday. She has a permacath in the left chest wall and states that this was placed near [place] 3 to 4 months ago. She did also have surgery near [place] for an AV fistula in the right arm 3 weeks ago and was told that it will not be ready for another few weeks. She was told by dialysis that the flow rate is continuing to get slower and slower and is taking far too long to complete dialysis and she was sent in for a cath exchange. She is already established with vascular in [place]. States that her daughter usually takes her to those appointments, however her daughter is currently on vacation and was thus hoping someone here could do the exchange in the meantime and she will then plan on following back up with [place]. - Related Data Home Medications Medication Instructions Recorded Confirmed Levothyroxine Sodium [Synthroid] 150 mcg PO MOTUWETHFR 03/25/20 07/27/23 Levothyroxine Sodium [Synthroid] 225 mcg PO SUSA 12/20/21 07/27/23 Insulin Glargine,Hum.rec.anlog 33 units SQ BID 07/21/22 07/27/23 [Lantus Solostar Pen] Insulin Lispro [humaLOG Kwikpen] 23 unit SQ AC-TID 07/21/22 07/27/23 Sevelamer [Renvela] 800 - 1,600 mg PO TID-W/MEALS 10/17/22 07/27/23 Simvastatin [Zocor] 40 mg PO HS 10/17/22 07/27/23 Pantoprazole Sodium [Protonix] 20 mg PO DAILY 05/31/23 07/27/23 traZODone HCL [Desyrel] 100 mg PO HS PRN 05/31/23 07/27/23 Folic Acid/Vit B Complex and C 0.8 mg PO HS 07/16/23 07/27/23 [Nephro-Nav Tablet] Midodrine HCl [ProAmatine] 10 mg PO TID PRN 07/16/23 07/27/23 carvediloL [Coreg] 25 mg PO BID 07/16/23 07/27/23 Benzonatate [Tessalon Perles] 100 mg PO TID PRN 07/27/23 07/27/23 Previous Rx's Medication Instructions Recorded Piperacillin-Tazobactam [Zosyn] 3.375 gm IVPB Q12H #24 dose 08/02/23 Allergies Allergy/AdvReac Type Severity Reaction Status Date / Time No Known Allergies Allergy Verified 09/11/24 09:45 Review of Systems ROS Statement: Those systems with pertinent positive or pertinent negative responses have been documented in the HPI. ROS Other: All systems not noted in ROS Statement are negative. 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 6 years. [place] R arm Last Myocardial Infarction Date:: Unknown History of Any Multi-Drug Resistant Organisms: None Reported Past Surgical History: Section, Hysterectomy, Orthopedic Surgery Additional Past Surgical History / Comment(s): Had open thrombectomy left axillary graft on 12-21-21,BONE TUMOR REMOVED FROM LT FINGER AND REPLACED WITH BONE FROM ELBOW. DIALYSIS FISTULA rt arm-old, lasik rt eye surgery, right upper ext. left AV graft revision 03-31-20 Past Anesthesia/Blood Transfusion Reactions: Postoperative Nausea & Vomiting (PONV) Past Psychological History: No Psychological Hx Reported Smoking Status: Never smoker Past Alcohol Use History: None Reported Past Drug Use History: None Reported - Past Family History Mother Family Medical History: Cancer Brother(s) Family Medical History: Cancer General Exam Limitations: no limitations General appearance: alert, in no apparent distress Head exam: Present: atraumatic, normocephalic, normal inspection Respiratory exam: Present: normal lung sounds bilaterally. Absent: respiratory distress, wheezes, rales, rhonchi, stridor Cardiovascular Exam: Present: regular rate, normal rhythm Neurological exam: Present: alert, oriented X3, CN II-XII intact Psychiatric exam: Present: normal affect, normal mood Skin exam: Present: warm, dry, intact, normal color. Absent: rash Course Vital Signs 09/11/24 09/11/24 09/11/24 09:42 09:45 11:00 Temperature 97.8 F Pulse Rate 61 65 65 Respiratory 20 16 16 Rate Blood Pressure 104/50 110/60 138/66 O2 Sat by Pulse 99 98 98 Oximetry 09/11/24 09/11/24 12:42 13:19 Temperature 97.8 F Pulse Rate 69 65 Respiratory 16 20 Rate Blood Pressure 145/65 140/58 O2 Sat by Pulse 98 Oximetry Medical Decision Making - Medical Decision Making This is a 69 year old female who presents to the emergency department for problems with her dialysis catheter. Was pt. sent in by a medical professional or institution? @ -No Did you speak to anyone other than the patient for history? @ -No Did you review nursing and triage notes? @ -Yes, and I agree, it is accurate with regards to the patient's symptoms. Were old charts reviewed? @ -No Differential Diagnosis? @ -Malfunction of the catheter, occlusion of the catheter, displacement, this is not meant to be an all-inclusive list. EKG interpreted by me (3pts min.)? @ -Not obtained X-rays interpreted by me (1pt min.)? @ -Not obtained CT interpreted by me (1pt min.)? @ -Not obtained U/S interpreted by me (1pt. min.)? @ -Not obtained What testing was considered but not performed? (CT, X-rays, U/S, labs)? Why? @ -None What meds were considered but not given? Why? @ -None Did you discuss the management of the patient with other professionals? @ -Radha Millard from vascular surgery who advised that there is no guarantees that their group could perform the catheter exchange today and it could be Saturday before they could do something like this. Did you reconcile home meds? @ -No Was smoking cessation discussed for >3mins.? @ -No Was critical care preformed (if so, how long)? @ -No Were there social determinants of health that impacted care today? How? (Homelessness, low income, unemployed, alcoholism, drug addiction, transportation, low edu. Level, literacy, decrease access to med. care, intermediate, rehab)? @ -No Was there de-escalation of care discussed even if they declined? (Discuss DNR or withdrawal of care, Hospice)? @ -No What co-morbidities impacted this encounter? (DM, HTN, Smoking, COPD, CAD, Cancer, CVA, Hep., AIDS, mental health diagnosis, sleep apnea, morbid obesity)? @ -ESRD on dialysis Was patient admitted / discharged? @ -Discharged. When discussing catheter exchange, she advised that she would like someone from Dr. Parnell's group to do this. Case discussed with Radha Millard from vascular. She advised that Dr. Parnell will be in surgery today and there is no guarantee that could be done today and it may even be Saturday before this would occur. While her catheter is moving slowly, it is still functional, and we advised that being admitted over the weekend for this would not be ideal. Patient was in agreement with this. Cathflo was administered in the emergency department and on reevaluation the port flushed without resistance and there was blood return on both sides. Patient advised that she can attend dialysis as scheduled tomorrow and should any issues with it occur in the meantime she can return here for possible exchange at that point. However, she can also follow- up if possible with her vascular surgeon in the [place] area. Patient discharged home in stable condition. Case discussed with ED attending Dr. Cortes. Return precautions reviewed in depth, the patient is instructed to return to the emergency department with any new, worsening, or concerning symptoms. Patient verbalized understanding. Undiagnosed new problem with uncertain prognosis? @ -None Drug Therapy requiring intensive monitoring for toxicity (Heparin, Nitro, Insulin, Cardizem)? @ -None Were any procedures done? @ -None Diagnosis/symptom? @ -Permacath complication Acute, or Chronic, or Acute on Chronic? @ -Acute Uncomplicated (without systemic symptoms) or Complicated (systemic symptoms)? @ -Uncomplicated Side effects of treatment? @ -None Exacerbation, Progression, or Severe Exacerbation] @ -Not applicable Poses a threat to life or bodily function? @ -Not at this time Disposition Clinical Impression: Complications, dialysis, catheter, mechanical Disposition: HOME SELF-CARE Instructions (If sedation given, give patient instructions): Perma-cath Placement (DC) Additional Instructions: Return to the emergency department with any new, worsening, or concerning symptoms. Follow up with your primary care provider in 1-2 days. Is patient prescribed a controlled substance at d/c from ED?: No Referrals: Candelaria Barrera MD [Primary Care Provider] - 1-2 days Time of Disposition: 13:18
[2024-09-11] MEDS: ALTEPLASE 2 MG VIAL (CATHFLO) IV STA (12:28)
[2024-09-11 13:31] VITALS: BP 140/58; PULSE 65; RESP 20
== END 2024-09-11 13:36 | disposition home or self-care (01) ==
LOC: EC 09:37
DX: T82.41XA Breakdown (mechanical) of vascular dialysis catheter, initial encounter (principal); E11.22 Type 2 diabetes mellitus with diabetic chronic kidney disease; I12.0 Hypertensive chronic kidney disease with stage 5 chronic kidney disease or end stage renal disease; N18.6 End stage renal disease; Z99.2 Dependence on renal dialysis; Z79.4 Long term (current) use of insulin; Z79.899 Other long term (current) drug therapy
CPT/HCPCS: 99283; 96374; J2997

== ENCOUNTER 2024-09-14 09:34 | Emergency (ER) | payer MEDICARE, BC ==
[2024-09-14 09:41] VITALS: RESP 18
--- NOTE | 2024-09-14 11:56 | ED ---
General Adult HPI - General Chief complaint: Recheck/Abnormal Lab/Rx Stated complaint: Cath Issues Time Seen by Provider: 09/14/24 09:45 Source: patient, RN notes reviewed Mode of arrival: ambulatory Limitations: no limitations - History of Present Illness Initial comments: 69-year-old female presents emergency department with chief complaint of needing dialysis catheter exchange. Patient states she has had issues with with it running very slow they had to dial back her treatment she states she did go on Saturday abnormal treatment. Patient denies any shortness of breath nausea vomiting she states she was vies come here today. She normally follows with [facility] vascular and she is awaiting her fistula to mature. - Related Data Home Medications Medication Instructions Recorded Confirmed Levothyroxine Sodium [Synthroid] 150 mcg PO MOTUWETHFR 03/25/20 07/27/23 Levothyroxine Sodium [Synthroid] 225 mcg PO SUSA 12/20/21 07/27/23 Insulin Glargine,Hum.rec.anlog 33 units SQ BID 07/21/22 07/27/23 [Lantus Solostar Pen] Insulin Lispro [humaLOG Kwikpen] 23 unit SQ AC-TID 07/21/22 07/27/23 Sevelamer [Renvela] 800 - 1,600 mg PO TID-W/MEALS 10/17/22 07/27/23 Simvastatin [Zocor] 40 mg PO HS 10/17/22 07/27/23 Pantoprazole Sodium [Protonix] 20 mg PO DAILY 05/31/23 07/27/23 traZODone HCL [Desyrel] 100 mg PO HS PRN 05/31/23 07/27/23 Folic Acid/Vit B Complex and C 0.8 mg PO HS 07/16/23 07/27/23 [Nephro-Nav Tablet] Midodrine HCl [ProAmatine] 10 mg PO TID PRN 07/16/23 07/27/23 carvediloL [Coreg] 25 mg PO BID 07/16/23 07/27/23 Benzonatate [Tessalon Perles] 100 mg PO TID PRN 07/27/23 07/27/23 Previous Rx's Medication Instructions Recorded Piperacillin-Tazobactam [Zosyn] 3.375 gm IVPB Q12H #24 dose 08/02/23 Allergies Allergy/AdvReac Type Severity Reaction Status Date / Time No Known Allergies Allergy Verified 09/14/24 09:40 Review of Systems ROS Statement: Those systems with pertinent positive or pertinent negative responses have been documented in the HPI. ROS Other: All systems not noted in ROS Statement are negative. 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 6 years. [place] R arm Last Myocardial Infarction Date:: Unknown History of Any Multi-Drug Resistant Organisms: None Reported Past Surgical History: Section, Hysterectomy, Orthopedic Surgery Additional Past Surgical History / Comment(s): Had open thrombectomy left axillary graft on 12-21-21,BONE TUMOR REMOVED FROM LT FINGER AND REPLACED WITH BONE FROM ELBOW. DIALYSIS FISTULA rt arm-old, lasik rt eye surgery, right upper ext. left AV graft revision 03-31-20 Past Anesthesia/Blood Transfusion Reactions: Postoperative Nausea & Vomiting (PONV) Past Psychological History: No Psychological Hx Reported Smoking Status: Never smoker Past Alcohol Use History: None Reported Past Drug Use History: None Reported - Past Family History Mother Family Medical History: Cancer Brother(s) Family Medical History: Cancer General Exam Limitations: no limitations General appearance: alert, in no apparent distress Head exam: Present: atraumatic, normocephalic, normal inspection Eye exam: Present: normal appearance, PERRL, EOMI. Absent: scleral icterus, conjunctival injection, periorbital swelling Neck exam: Present: normal inspection. Absent: tenderness, meningismus, lymphadenopathy Respiratory exam: Present: normal lung sounds bilaterally. Absent: respiratory distress, wheezes, rales, rhonchi, stridor Cardiovascular Exam: Present: regular rate, normal rhythm, normal heart sounds. Absent: systolic murmur, diastolic murmur, rubs, gallop, clicks Course Vital Signs 09/14/24 09:37 Temperature 97.7 F Pulse Rate 65 Respiratory 18 Rate Blood Pressure 140/75 O2 Sat by Pulse 100 Oximetry Medical Decision Making - Medical Decision Making Was pt. sent in by a medical professional or institution (SUDHA Gomez, [employer], urgent care, hospital, or retirement...) When possible be specific @ -No Did you speak to anyone other than the patient for history (EMS, parent, family, police, friend...)? What history was obtained from this source @ -No Did you review nursing and triage notes (agree or disagree)? Why? @ -I reviewed and agree with nursing and triage notes Were old charts reviewed (outside hosp., previous admission, EMS record, old EKG, old radiological studies, urgent care reports/EKG's, retirement records)? Report findings @ -No old charts were reviewed Differential Diagnosis (chest pain, altered mental status, abdominal pain women, abdominal pain men, vaginal bleeding, weakness, fever, dyspnea, syncope, headache, dizziness, GI bleed, back pain, seizure, CVA, palpatations, mental health, musculoskeletal)? @ -Renal failure, dialysis, dialysis catheter complication failure EKG interpreted by me (3pts min.). @ -None X-rays interpreted by me (1pt min.). @ -None done CT interpreted by me (1pt min.). @ -None done U/S interpreted by me (1pt. min.). @ -None done What testing was considered but not performed or refused? (CT, X-rays, U/S, labs)? Why? @ -None What meds were considered but not given or refused? Why? @ -None Did you discuss the management of the patient with other professionals (professionals i.e. SUDHA Gomez, [employer], lab, RT, psych nurse, socially responsible investment adviser, dye tub tender, teacher, tank officer, sample case porter)? Give summary @ -Discussed the case with Dr. Chen on-call vascular surgeon recommends 2milligrams of Cathflo in each port and will schedule outpatient procedure for exchange. Was smoking cessation discussed for >3mins.? @ -No Was critical care preformed (if so, how long)? @ -No Were there social determinants of health that impacted care today? How? (Homelessness, low income, unemployed, alcoholism, drug addiction, transportation, low edu. Level, literacy, decrease access to med. care, prison, rehab)? @ -No Was there de-escalation of care discussed even if they declined (Discuss DNR or withdrawal of care, Hospice)? DNR status @ -No What co-morbidities impacted this encounter? (DM, HTN, Smoking, COPD, CAD, Cancer, CVA, ARF, Chemo, Hep., AIDS, mental health diagnosis, sleep apnea, morbid obesity)? @ -None Was patient admitted / discharged? Hospital course, mention meds given and route, prescriptions, significant lab abnormalities, going to OR and other pertinent info. @ -Discharged patient had Cathflo instilled into her dialysis catheter as directed by vascular surgeon no outpatient procedure for dialysis catheter exchange Undiagnosed new problem with uncertain prognosis? @ -No Drug Therapy requiring intensive monitoring for toxicity (Heparin, Nitro, Insulin, Cardizem)? @ -No Were any procedures done? @ -No Diagnosis/symptom? @ -Catheter complication Acute, or Chronic, or Acute on Chronic? @ -Acute Uncomplicated (without systemic symptoms) or Complicated (systemic symptoms)? @ -Uncomplicated Side effects of treatment? @ -No Exacerbation, Progression, or Severe Exacerbation? @ -No Poses a threat to life or bodily function? How? (Chest pain, [place], [place], pneumonia, PE, COPD, DKA, ARF, appy, cholecystitis, CVA, Diverticulitis, Homicidal, Suicidal, threat to staff... and all critical care pts) @ -No Disposition Clinical Impression: Complications, dialysis, catheter, mechanical Disposition: HOME SELF-CARE Condition: Stable Additional Instructions: Please return to the Emergency Department if symptoms worsen or any other concerns. Is patient prescribed a controlled substance at d/c from ED?: No Referrals: Candelaria Barrera MD [Primary Care Provider] - 1-2 days Tracy Finn DO [STAFF PHYSICIAN] - 1-2 days Time of Disposition: 11:55
[2024-09-14] MEDS: ALTEPLASE 2 MG VIAL (CATHFLO) IV STA ×2 (13:08→13:09)
[2024-09-14 13:20] VITALS: BP 164/80; PULSE 72; TEMP 98
== END 2024-09-14 13:44 | disposition home or self-care (01) ==
LOC: EC 09:34
DX: T83.098A Other mechanical complication of other urinary catheter, initial encounter (principal); T82.49XA Other complication of vascular dialysis catheter, initial encounter
CPT/HCPCS: 99283; 36593; J2997

== ENCOUNTER 2024-09-17 10:44 | Day surgery (SDC) | payer MEDICARE, BC ==
[2024-09-16 10:46] VITALS: BMI 48.0
[2024-09-17 11:22] VITALS: TEMP 97.9
[2024-09-17] MEDS: fentaNYL (PF) 50 MCG/1 ML VIAL IVP ONE (11:57)
[2024-09-17] MEDS: MIDAZOLAM 2 MG/2 ML VIAL IVP ONE (11:57)
[2024-09-17] MEDS: SODIUM CHLORIDE 0.9% 1,000 ML IV ONE (11:58)
[2024-09-17] MEDS: LIDOCAINE 1% INJ 10MG/ML (30 ML VIAL-PF) SQ ONE (12:09)
[2024-09-17] MEDS: HEPARIN SODIUM 1,000 UN/ML (10ML VL) MISCELLANE ONE (12:21)
--- NOTE | 2024-09-17 12:38 | P.OP ---
Date of Procedure: 09/17/24 Description of Procedure: DATE OF PROCEDURE: 09/17/2024 PREOPERATIVE DIAGNOSIS: End-stage renal disease on the left, nonfunctional tunneled catheter PROCEDURE: 1. Exchange of previously placed tunneled dialysis catheter with fluoroscopic assistance 2. Moderate conscious sedation times 17 minutes PROCEDURE: The patient was brought to the Customer Service Advocate placed in supine position. The bilateral necks were prepped and draped in usual sterile fashion. A preprocedure timeout was performed, all parties were in agreement. The skin at the apex of the previously placed catheter on the left was anesthetized and the catheter was identified. It was grasped and transected. The external portion was removed via the chest wall Using Seldinger technique and fluoroscopic assistance, the 35 Glidewire was placed and the tract was serially dilated. And the large dilator was left in place. The previously flushed catheter was then tunneled. Attention was turned back towards the neck and the final tear-away sheath was left in place. The inner cannula and wire were removed. The catheter was placed in the tear-away sheath was removed in standard fashion. The catheter showed good positioning was final resting place in the cavoatrial junction. The catheter aspirated and flushed freely. The incision at the neck was reapproximated with interrupted sutures of 4-0 Vicryl. The catheter was sutured in place with 3-0 nylon. Dressings were placed. The patient was allowed to awaken from anesthesia and transferred to recovery in stable condition having tolerated the procedure well. A post procedure chest x-ray is pending Plan - Discharge Summary Discharge Rx Participant: No New Discharge Prescriptions: No Action Levothyroxine Sodium [Synthroid] 150 mcg PO MOTUWETHFR Insulin Lispro [humaLOG Kwikpen] 23 unit SQ AC-TID Insulin Glargine,Hum.rec.anlog [Lantus Solostar Pen] 15 units SQ BID Sevelamer [Renvela] 800 - 1,600 mg PO TID-W/MEALS Pantoprazole Sodium [Protonix] 20 mg PO DAILY carvediloL [Coreg] 25 mg PO BID Midodrine HCl [ProAmatine] 10 mg PO TID PRN PRN Reason: LOW BP UNDER 100 Levothyroxine Sodium [Synthroid] 225 mcg PO SUSA Simvastatin [Zocor] 40 mg PO HS traZODone HCL [Desyrel] 100 mg PO HS PRN PRN Reason: Insomnia Folic Acid/Vit B Complex and C [Nephro-Nav Tablet] 0.8 mg PO HS Benzonatate [Tessalon Perles] 100 mg PO TID PRN PRN Reason: Cough Discharge Medication List Levothyroxine Sodium [Synthroid] 150 mcg PO MOTUWETHFR 03/25/20 [History] Levothyroxine Sodium [Synthroid] 225 mcg PO SUSA 12/20/21 [History] Insulin Glargine,Hum.rec.anlog [Lantus Solostar Pen] 15 units SQ BID 07/21/22 [History] Insulin Lispro [humaLOG Kwikpen] 23 unit SQ AC-TID 07/21/22 [History] Sevelamer [Renvela] 800 - 1,600 mg PO TID-W/MEALS 10/17/22 [History] Simvastatin [Zocor] 40 mg PO HS 10/17/22 [History] Pantoprazole Sodium [Protonix] 20 mg PO DAILY 05/31/23 [History] traZODone HCL [Desyrel] 100 mg PO HS PRN 05/31/23 [History] Folic Acid/Vit B Complex and C [Nephro-Nav Tablet] 0.8 mg PO HS 07/16/23 [History] Midodrine HCl [ProAmatine] 10 mg PO TID PRN 07/16/23 [History] carvediloL [Coreg] 25 mg PO BID 07/16/23 [History] Benzonatate [Tessalon Perles] 100 mg PO TID PRN 07/27/23 [History] Activity/Diet/Wound Care/Special Instructions: Resume previous diet. Resume previous medications as ordered. May go to dialysis and utilize catheter today. Follow back up with previous vascular surgeon as previously planned Discharge Disposition: HOME SELF-CARE
[2024-09-17 12:48] LABS: Glucose,Whole Blood 218 mg/dL (70-110)
[2024-09-17] MEDS: INSULIN LISPRO (HumaLOG) 100 UNIT/ML 10 mL VL SQ ONE (13:02)
[2024-09-17 13:30] VITALS: RESP 16
[2024-09-17 13:33] VITALS: BP 145/73; PULSE 77
--- NOTE | 2024-09-17 17:28 | IR ---
hemodialysis catheter, 1min fluoro, [id number], , 09/17/2024 5:25 PM
== END 2024-09-17 13:18 | disposition home or self-care (01) ==
LOC: CATHCVL 10:44
PROVIDERS: ATTEND Surgery
DX: N18.6 End stage renal disease (principal)
CPT/HCPCS: 36581; 99152; C1769; C1750; C1751; J2250; J2003; J1644; J3010